=== PATIENT | male | born 1950 | race Caucasian/White ===

== ENCOUNTER 2017-10-29 17:26 | Inpatient (IN) | payer MEDICARE, OTHER, SELFPAY ==
[2017-10-29] VITALS (16 sets, daily range): BP systolic 77–134; BP diastolic 48–104; PULSE 12–88; RESP 16–21; TEMP 36.2–36.5; O2SAT 93–98; BMI 27.1; BMI 29.7
--- NOTE | 2017-10-29 17:32 | RAD_ITS ---
STUDY: X-RAY CHEST REASON FOR EXAM: Male, 66 years old. Chest pain TECHNIQUE: Single AP portable view of the chest. COMPARISON: None. FINDINGS: The lungs are clear and expanded. There is no demonstrated pleural abnormality. Normal size heart. Normal mediastinum and schuyler. Normal visualized pulmonary arteries. Normal visualized aortic arch and descending thoracic aorta. Normal visualized thoracic spine. Normal visualized ribs, clavicles, and shoulders. There is no demonstrated abnormality of the visualized soft tissue structures of the upper abdomen. RAD/Chest 1 View (Portable) IMPRESSION: No acute cardiopulmonary disease. Electronically Signed: Vazquez Houston DO at 17:55 EDT , Service support ,
--- NOTE | 2017-10-29 17:32 | EKG12_ITS ---
Test Reason : REPEAT Blood Pressure : / mmHG Vent. Rate : 064 BPM Atrial Rate : 064 BPM P-R Int : 186 ms QRS Dur : 118 ms QT Int : 430 ms P-R-T Axes : 057 037 081 degrees QTc Int : 443 ms Sinus rhythm with frequent Premature ventricular complexes ST elevation consider inferior injury or acute infarct ACUTE NE / STEMI Consider right ventricular involvement in acute inferior infarct Abnormal ECG Confirmed by TIBURCIO WILSON, RADHA ([id number]), visual effects editor GAY JEREZ ([id number]) on 10/31/2017 3:31:01 PM Referred By: Shayne Bolivar Confirmed By:RADHA DEY MD
[2017-10-29 17:41] LABS: Absolute Neutrophil Count 7.2 X10^3/uL (2.0-7.7); Basophil# 0.04 X10^3/uL; Basophil% 0.4 % (0-1); Eosinophil# 0.56 X10^3/uL; Eosinophils% 4.9 % (0-5); Hematocrit 49.9 % (40-54); Hemoglobin 17.6 g/dl (13.0-16.5); Lymphocyte % 24.7 % (19-41); Mean Corp Hgb Conc 35.3 g/gl (32-36); Mean Corpuscular Hgb 34.2 pg (27.0-32.0); Mean Corpuscular Volume 97.1 fL (80-94); Mean Platelet Vol. 9.8 fl (6.2-12.0); Monocyte# 0.75 X10^3/uL; Monocyte% 6.6 % (0-10); Neutrophil # 7.15 X10^3/uL (2.7-7.7); Neutrophil % 63.1 % (47-70); Platelet Count 277 K/mm3 (150-450); RBC Distribution Width CV 13.3 % (11.6-14.6); RBC Distribution Width SD 47.8 fl (35.1-43.9); Red Blood Count 5.14 M/mm3 (4.6-6.2); White Blood Count 11.3 K/mm3 (4.4-11.0)
[2017-10-29 17:42] LABS: POSITIVE COUNT NO; POSITIVE DIFFERENTIAL NO; POSITIVE MORPHOLOGY NO
[2017-10-29] MEDS: Aspirin 81 MG TAB.CHEW 324 MG PO (17:45)
[2017-10-29] MEDS: 0.9% Normal Saline 1,000 ML 150 ML IV (17:45)
[2017-10-29 18:02] LABS: Anion Gap 5 (5-15); BUN 22 mg/dL (7-18); BUN/Creat Ratio 17.6 RATIO (10-20); Calcium,Total 9.6 mg/dL (8.5-10.1); Chloride 103 mmol/L (98-107); Creatinine, Serum 1.25 mg/dL (0.70-1.30); EST Glomerular Filtration Rate 61 mL/min (>60); Est Glom Filt Rate - Afr Amer 74 mL/min (>60); Estimated Creatinine Clearance 69.44 ml/min; Glucose 119 mg/dL (74-106); Potassium 3.8 mmol/L (3.5-5.1); Sodium Level 140 mmol/L (136-145)
--- NOTE | 2017-10-29 18:10 | ED.VISSUMM ---
- ER Visit Summary Date of Service: 10/29/17 Chief Complaint: Chest pain History of Present Illness: The patient is a [address] Mcwilliams. He reports he has chest pain began approximately 1 hour ago. This began while he was startled from sleep. Is a continuous tightness. 6 out of 10 at worst and 5 out of 10 currently. Is worsened by laying flat. It is unchanged by exertion or movement. Is relieved by nothing. Has been accompanied by nausea, diaphoresis, and shortness of breath. States pain does radiate up into his jaw and into both arms. Physical Examination: Vitals: Stable. Afebrile. General: Well-nourished and well-developed. Head: Normocephalic atraumatic. Neck: Supple, no lymphadenopathy. No JVD. Nontender. Cardiovascular: Regular rate and rhythm. No murmurs. Respiratory: No respiratory distress. Clear to auscultation bilaterally. Abdominal: Soft, nontender, nondistended, normal bowel sounds. No guarding, rebound, or peritoneal signs. Back: Nontender. Extremities: Nontender, no edema. Skin: Normal color, no rash. Neurologic: Alert and oriented ?3. Cranial nerves II through XII are intact. Normal strength and sensation. Psych: Normal affect. Test Results: Initial EKG is sinus 87 with PVCs and nonspecific ST changes. Repeat EKG shows inferior ST elevation. Initial troponin is negative. Chem-7 is more for BUN 22 and glucose 119. CBC is marked for white count 11.3 and hemoglobin of 17.6. Chest x-ray is normal. Emergency Department Course and Treatment: Patient's initial EKG was negative. He was given aspirin p.o. and nitro. He complained of increased pain and repeat EKG was obtained which shows ST elevation in the inferior leads. Patient was then given Brilinta p.o. and heparin IV. Treatment Plan: Patient was discussed with Dr. Carol Shen and is being taken to the Microbiology Professor at this time. Disposition: Admitted in serious condition. Impression: 1. ST elevation [place], inferior. 2. Critical care time 30 minutes. This note was generated with [employer] software. It may contain incorrect words, spelling, and punctuation that were not noted in review of the chart prior to signing ED Disposition - Plan for ED Patient: Chief Complaint: Chest Pain Referrals: Jarad Mcwilliams Chi, MD [Primary Care Provider] -
--- NOTE | 2017-10-29 18:17 | ED.DCSUM_ITS ---
- ER Visit Summary Date of Service: 10/29/17 Chief Complaint: Chest pain History of Present Illness: The patient is a [address] Mcwilliams. He reports he has chest pain began approximately 1 hour ago. This began while he was startled from sleep. Is a continuous tightness. 6 out of 10 at worst and 5 out of 10 currently. Is worsened by laying flat. It is unchanged by exertion or movement. Is relieved by nothing. Has been accompanied by nausea, diaphoresis, and shortness of breath. States pain does radiate up into his jaw and into both arms. Physical Examination: Vitals: Stable. Afebrile. General: Well-nourished and well-developed. Head: Normocephalic atraumatic. Neck: Supple, no lymphadenopathy. No JVD. Nontender. Cardiovascular: Regular rate and rhythm. No murmurs. Respiratory: No respiratory distress. Clear to auscultation bilaterally. Abdominal: Soft, nontender, nondistended, normal bowel sounds. No guarding, rebound, or peritoneal signs. Back: Nontender. Extremities: Nontender, no edema. Skin: Normal color, no rash. Neurologic: Alert and oriented ?3. Cranial nerves II through XII are intact. Normal strength and sensation. Psych: Normal affect. Test Results: Initial EKG is sinus 87 with PVCs and nonspecific ST changes. Repeat EKG shows inferior ST elevation. Initial troponin is negative. Chem-7 is more for BUN 22 and glucose 119. CBC is marked for white count 11.3 and hemoglobin of 17.6. Chest x-ray is normal. Emergency Department Course and Treatment: Patient's initial EKG was negative. He was given aspirin p.o. and nitro. He complained of increased pain and repeat EKG was obtained which shows ST elevation in the inferior leads. Patient was then given Brilinta p.o. and heparin IV. Treatment Plan: Patient was discussed with Dr. Carol Shen and is being taken to the Terrazzo Polisher Helper at this time. Disposition: Admitted in serious condition. Impression: 1. ST elevation [place], inferior. 2. Critical care time 30 minutes. This note was generated with [employer] software. It may contain incorrect words, spelling, and punctuation that were not noted in review of the chart prior to signing ED Disposition - Plan for ED Patient: Chief Complaint: Chest Pain Referrals: Jarad Mcwilliams Chi, MD [Primary Care Provider] -
[2017-10-29] MEDS: Heparin Injection 5,000 UNITS/ML Syringe 4000 UNITS IV (18:20)
[2017-10-29] MEDS: TICAGRELOR 90 MG TABLET 180 MG PO (18:20)
[2017-10-29] MEDS: Morphine 2 MG/ML Syringe IV (18:24)
[2017-10-29] MEDS: Ondansetron 4 MG/2 ML Vial IV (18:24)
--- NOTE | 2017-10-29 18:29 | PCM.HP.STD ---
Problem List (1) HTN (hypertension) Status: Chronic Qualifiers: Hypertension type: essential hypertension Qualified Code(s): I10 - Essential (primary) hypertension (2) Tobacco dependence due to cigarettes Status: Chronic (3) STEMI (ST elevation myocardial infarction) Status: Acute (4) Hypotension Status: Acute Comment: following NTG and then again after 2 mg MS (5) Dehydration Status: Acute (6) Stenosis of left subclavian artery Status: Chronic (7) [place] (hard of hearing) Status: Chronic History of Present Illness Date of Admission: 10/29/17 Chief Complaint: chest pain The patient is a 66 year old M with a PMH of HTN and tobacco dependence and Left subclavian stenosis who presented to the ED at [facility] on 10/29/17 c/o substernal CP that started 3 hours prior to coming to the ER and was continuous. It was associated with radiation into both arms, SOB, nausea and diaphoresis. Initial EKG did not show ST elevation but the second EKG showed STEMI in the inferior leads with frequent PVC's. He was given NTG in the ER and the BP dropped. Significant lab included a hemoglobin of 17.6. BUN was 22 with a creatinine of 1.25. He takes metoprolol 50 mg p.o. twice daily and Zesteretic for BP control. Troponin was less than 0.02 and a random glucose was 119. He was given a loading dose of Brilinta and 324 mg of ASA. The cath team was summoned and the pt was taken to the cathodic protection technician by Dr. Bolivar. When the BP dropped a 500 cc bolus of NS was ordered. He denied any personal or FH of CAD. His is currently an inpatient at [facility] being evaluated for NPH and he has been under a lot of stress recently. He received IV MS 2 mg and Zofran 4 mg IV in rapid succession in the ED and then developed redness of the L arm distal to the antecubital fossa and pruritus. He has had MS many years ago with no adverse reaction......he may be allergic to Zofran. Past Medical History Past Medical History (Chronic Problems): Chronic Problems HTN (hypertension) (Chronic) Tobacco dependence due to cigarettes (Chronic) Stenosis of left subclavian artery (Chronic) [place] (hard of hearing) (Chronic) Allergies No Known Allergies Allergy (Verified 10/29/17 17:30) Home Medications: Ambulatory Orders Medication Instructions Recorded Lisinopril/Hydrochlorothiazide 20 mg PO BID 10/29/17 [Zestoretic 20/12.5 Tablet] Metoprolol Tartrate [Lopressor 50 mg PO BID 10/29/17 (beta svitlana)] Surgical History: herniorrhaphy - Left inguinal, - - elbow surgery Psychiatric History: No pertinent psych hx Lives: Spouse/ Significant Other, - - He is retired - [employer] Smoking Status: Current every day smoker Tobacco Use: Cigarettes Alcohol: None - has not had a drink in 15 years Drugs: None - *Family History Maternal History Items: No pertinent history, - - no hx of CAD Paternal History Items: No pertinent history, - - no hx of CAD Review of Systems Constitutional: Denies: Chills, Fever, Weight Change Eyes: Denies: Blurred vision, Redness HEENT: Reports: Difficulty Hearing. Denies: Head Aches, Sinus Congestion, Sinus Drainage Cardiovascular: Reports: Chest Pain. Denies: Edema, Light Headedness, Palpitations, Syncope Respiratory: Reports: Shortness of Breath, Shortness of breath at rest. Denies: Cough, Sputum production, Wheezing Gastrointestinal: Reports: Nausea. Denies: Abdominal Pain, Diarrhea, Vomiting Genitourinary: Denies: Dysuria Musculoskeletal: Reports: Arm Pain - BL arm pain from the shoulders to the elbows Skin: Denies: Jaundice, Pruritis - pruritius in the Left arm after IV MS and zofran......has had morphine in the past with no adverse reaction. Neurological: Denies: Change in Speech, Slurred speech, Confusion, Focal weakness, Numbness, Tingling Psychiatric: Denies: Anxiety, Depression, Homicidal Ideations, Suicidal Ideations Endocrine: Denies: Change in Body Habitus Hematologic/ Lymphatic: Denies: Hx of blood clot VTE Information - Inpt Only VTE Present on Admission: No VTE Mechan Device Prophylaxis: SCD's, Knee High REBECA Hose VTE Pharm Prophylaxis ordered?: Yes Patient Problems: Active and Suspected Problems STEMI (ST elevation myocardial infarction) (Acute) Hypotension (Acute) following NTG and then again after 2 mg MS Dehydration (Acute) - Physical Exam General: Alert, Oriented x3, Cooperative, - - diaphoretic and appears to be having severe chest pain HEENT: Atraumatic, PERRLA, EOMI Oral: Dry Mucosa Neck: Supple, No JVD, No Nodes, No Nuchal Rigidity, Trachea Midline Lungs: Clear to auscultation Cardiovascular: No murmurs, - - SR with frequent PVC's and ST elevation on telemetry and STEMI on EKG in the IW. Heart sounds are distant Abdomen: Bowel Sounds Present, Soft, Non Tender, Non-Distended Extremities: No clubbing, No cyanosis, No edema, No Calf Tenderness, Peripheral Pulses Normal Skin: - - redness and pruritus of the Left arm after receiving sequential Zofran and MS Musculoskeletal: No Muscle Wasting Neurological: Cranial nerves II-XII grossly intact, Neuro grossly intact Psych/Mental Status: Anxious Vital Signs Temp Pulse Resp BP Pulse Ox 97.7 F L 12 L 19 H 134/104 H 98 10/29/17 17:26 10/29/17 18:19 10/29/17 18:16 10/29/17 18:19 10/29/17 18:16 Oxygen Flow Rate (L/min) 2 Oxygen Delivery Method Nasal Cannula Weight: 242 lb 8.136 oz Body Mass Index (BMI) 27.1 Laboratory Tests Past 24 Hrs 10/29/17 10/29/17 17:29 17:29 WBC 11.3 H RBC 5.14 Hgb 17.6 H Hct 49.9 MCV 97.1 H MCH 34.2 H MCHC 35.3 RDW 13.3 RDW Differential 47.8 H Plt Count 277 MPV 9.8 Immature Gran % (Auto) 0.300 Neut % (Auto) 63.1 Lymph % (Auto) 24.7 [place] % (Auto) 6.6 Eos % (Auto) 4.9 Baso % (Auto) 0.4 Absolute Neuts (auto) 7.2 Absolute Lymphs (auto) 2.80 Total Counted Not Reportable Sodium 140 Potassium 3.8 Chloride 103 Carbon Dioxide 32.0 Anion Gap 5 BUN 22 H Creatinine 1.25 Estim Creat Clear Calc 69.44 Est GFR (MDRD) Af Amer 74 Est GFR (MDRD) Non-Af 61 BUN/Creatinine Ratio 17.6 Glucose 119 H Calcium 9.6 Troponin I < 0.02 Assessment/Plan Active and Suspected Problems STEMI (ST elevation myocardial infarction) (Acute) Hypotension (Acute) following NTG and then again after 2 mg MS Dehydration (Acute) Impressions 1. Inferior wall STEMI 2. HTN 3. tobacco dependence 4. Dehydration 5. Hypotension after NTG due to dehydration in a pt with Acute IWMI - resolved with fluids. 6. Presbycusis 7. History of left subclavian stenosis He had 2 stents to the RCA. A third stent was attempted in the proximal RCA but the artery was heavily calcified and the stent could not be deployed. Post procedure he was alert and talking and had no CP. He was transferred to the ICU and Dr. Bolivar put in orders. I was in communication with his son Jaime who lives in the [facility] and kept him updated during the procedure and at the conclusion. The patient's is currently an inpatient at [facility] for NPH. Code Visit Inpatient E&M: 64677 Init Hosp L3
--- NOTE | 2017-10-29 18:40 | HP.PCM_ITS ---
Problem List (1) HTN (hypertension) Status: Chronic Qualifiers: Hypertension type: essential hypertension Qualified Code(s): I10 - Essential (primary) hypertension (2) Tobacco dependence due to cigarettes Status: Chronic (3) STEMI (ST elevation myocardial infarction) Status: Acute (4) Hypotension Status: Acute Comment: following NTG and then again after 2 mg MS (5) Dehydration Status: Acute (6) Stenosis of left subclavian artery Status: Chronic (7) [place] (hard of hearing) Status: Chronic History of Present Illness Date of Admission: 10/29/17 Chief Complaint: chest pain The patient is a 66 year old M with a PMH of HTN and tobacco dependence and Left subclavian stenosis who presented to the ED at [facility] on 10/29/17 c/o substernal CP that started 3 hours prior to coming to the ER and was continuous. It was associated with radiation into both arms, SOB, nausea and diaphoresis. Initial EKG did not show ST elevation but the second EKG showed STEMI in the inferior leads with frequent PVC's. He was given NTG in the ER and the BP dropped. Significant lab included a hemoglobin of 17.6. BUN was 22 with a creatinine of 1.25. He takes metoprolol 50 mg p.o. twice daily and Zesteretic for BP control. Troponin was less than 0.02 and a random glucose was 119. He was given a loading dose of Brilinta and 324 mg of ASA. The cath team was summoned and the pt was taken to the laborer operator by Dr. Bolivar. When the BP dropped a 500 cc bolus of NS was ordered. He denied any personal or FH of CAD. His is currently an inpatient at [facility] being evaluated for NPH and he has been under a lot of stress recently. He received IV MS 2 mg and Zofran 4 mg IV in rapid succession in the ED and then developed redness of the L arm distal to the antecubital fossa and pruritus. He has had MS many years ago with no adverse reaction......he may be allergic to Zofran. Past Medical History Past Medical History (Chronic Problems): Chronic Problems HTN (hypertension) (Chronic) Tobacco dependence due to cigarettes (Chronic) Stenosis of left subclavian artery (Chronic) [place] (hard of hearing) (Chronic) Allergies No Known Allergies Allergy (Verified 10/29/17 17:30) Home Medications: Ambulatory Orders Medication Instructions Recorded Lisinopril/Hydrochlorothiazide 20 mg PO BID 10/29/17 [Zestoretic 20/12.5 Tablet] Metoprolol Tartrate [Lopressor 50 mg PO BID 10/29/17 (beta svitlana)] Surgical History: herniorrhaphy - Left inguinal, - - elbow surgery Psychiatric History: No pertinent psych hx Lives: Spouse/ Significant Other, - - He is retired - [employer] Smoking Status: Current every day smoker Tobacco Use: Cigarettes Alcohol: None - has not had a drink in 15 years Drugs: None - *Family History Maternal History Items: No pertinent history, - - no hx of CAD Paternal History Items: No pertinent history, - - no hx of CAD Review of Systems Constitutional: Denies: Chills, Fever, Weight Change Eyes: Denies: Blurred vision, Redness HEENT: Reports: Difficulty Hearing. Denies: Head Aches, Sinus Congestion, Sinus Drainage Cardiovascular: Reports: Chest Pain. Denies: Edema, Light Headedness, Palpitations, Syncope Respiratory: Reports: Shortness of Breath, Shortness of breath at rest. Denies : Cough, Sputum production, Wheezing Gastrointestinal: Reports: Nausea. Denies: Abdominal Pain, Diarrhea, Vomiting Genitourinary: Denies: Dysuria Musculoskeletal: Reports: Arm Pain - BL arm pain from the shoulders to the elbows Skin: Denies: Jaundice, Pruritis - pruritius in the Left arm after IV MS and zofran......has had morphine in the past with no adverse reaction. Neurological: Denies: Change in Speech, Slurred speech, Confusion, Focal weakness, Numbness, Tingling Psychiatric: Denies: Anxiety, Depression, Homicidal Ideations, Suicidal Ideations Endocrine: Denies: Change in Body Habitus Hematologic/ Lymphatic: Denies: Hx of blood clot VTE Information - Inpt Only VTE Present on Admission: No VTE Mechan Device Prophylaxis: SCD's, Knee High REBECA Hose VTE Pharm Prophylaxis ordered?: Yes Patient Problems: Active and Suspected Problems STEMI (ST elevation myocardial infarction) (Acute) Hypotension (Acute) following NTG and then again after 2 mg MS Dehydration (Acute) - Physical Exam General: Alert, Oriented x3, Cooperative, - - diaphoretic and appears to be having severe chest pain HEENT: Atraumatic, PERRLA, EOMI Oral: Dry Mucosa Neck: Supple, No JVD, No Nodes, No Nuchal Rigidity, Trachea Midline Lungs: Clear to auscultation Cardiovascular: No murmurs, - - SR with frequent PVC's and ST elevation on telemetry and STEMI on EKG in the IW. Heart sounds are distant Abdomen: Bowel Sounds Present, Soft, Non Tender, Non-Distended Extremities: No clubbing, No cyanosis, No edema, No Calf Tenderness, Peripheral Pulses Normal Skin: - - redness and pruritus of the Left arm after receiving sequential Zofran and MS Musculoskeletal: No Muscle Wasting Neurological: Cranial nerves II-XII grossly intact, Neuro grossly intact Psych/Mental Status: Anxious Vital Signs Temp Pulse Resp BP Pulse Ox 97.7 F L 12 L 19 H 134/104 H 98 10/29/17 17:26 10/29/17 18:19 10/29/17 18:16 10/29/17 18:19 10/29/17 18:16 Oxygen Flow Rate (L/min) 2 Oxygen Delivery Method Nasal Cannula Weight: 242 lb 8.136 oz Body Mass Index (BMI) 27.1 Laboratory Tests Past 24 Hrs 10/29/17 10/29/17 17:29 17:29 WBC 11.3 H RBC 5.14 Hgb 17.6 H Hct 49.9 MCV 97.1 H MCH 34.2 H MCHC 35.3 RDW 13.3 RDW Differential 47.8 H Plt Count 277 MPV 9.8 Immature Gran % (Auto) 0.300 Neut % (Auto) 63.1 Lymph % (Auto) 24.7 [place] % (Auto) 6.6 Eos % (Auto) 4.9 Baso % (Auto) 0.4 Absolute Neuts (auto) 7.2 Absolute Lymphs (auto) 2.80 Total Counted Not Reportable Sodium 140 Potassium 3.8 Chloride 103 Carbon Dioxide 32.0 Anion Gap 5 BUN 22 H Creatinine 1.25 Estim Creat Clear Calc 69.44 Est GFR (MDRD) Af Amer 74 Est GFR (MDRD) Non-Af 61 BUN/Creatinine Ratio 17.6 Glucose 119 H Calcium 9.6 Troponin I < 0.02 Assessment/Plan Active and Suspected Problems STEMI (ST elevation myocardial infarction) (Acute) Hypotension (Acute) following NTG and then again after 2 mg MS Dehydration (Acute) Impressions 1. Inferior wall STEMI 2. HTN 3. tobacco dependence 4. Dehydration 5. Hypotension after NTG due to dehydration in a pt with Acute IWMI - resolved with fluids. 6. Presbycusis 7. History of left subclavian stenosis He had 2 stents to the RCA. A third stent was attempted in the proximal RCA but the artery was heavily calcified and the stent could not be deployed. Post procedure he was alert and talking and had no CP. He was transferred to the ICU and Dr. Bolivar put in orders. I was in communication with his son Jaime who lives in the [facility] and kept him updated during the procedure and at the conclusion. The patient's is currently an inpatient at [facility] for NPH. Code Visit Inpatient E&M: 65620 Init Hosp L3
[2017-10-29 19:12] LABS: AST(SGOT) 33 U/L (15-37); Alanine Aminotransfer ALT/SGPT 40 U/L (16-61); Albumin, Serum 4.2 g/dL (3.2-5.0); Alkaline Phosphatase 82 U/L (45-117); Bilirubin, Direct 0.11 mg/dL (0.00-0.30); Globulin 3.6 g/dL (2.2-4.2); Protein, Total 7.8 g/dL (6.4-8.2)
[2017-10-29 19:16] LABS: International Normalized Ratio 0.9; Prothrombin Time (Protime)PT. 12.3 SECONDS (11.7-14.9)
[2017-10-29 19:33] LABS: Hemoglobin A1c 6.8 % (4.2-6.3)
--- NOTE | 2017-10-29 20:41 | PCM.CONS.C ---
Problem List (1) STEMI (ST elevation myocardial infarction) Status: Acute Reason for Consult Date of Consultation: 10/29/17 History of Present Illness: The patient is a 66 year old M with past medical history significant for hypertension. He presented to the emergency room with complaints of anterior chest discomfort radiating to both shoulders and arms. Started about 2 hours prior to presentation. Initial EKG in the emergency room was unremarkable. However as his pain worsened, another EKG was performed. It showed acute inferior myocardial infarction. Subsequently a STEMI alert was called. Positive shortness of breath associated with chest discomfort. Positive diaphoresis. Patient denies any previous history of angina pectoris. Denies any history of coronary artery disease. [] Past Medical History Allergies/Adverse Reactions: Allergies No Known Allergies Allergy (Verified 10/29/17 17:30) Home Medications: Ambulatory Orders Medication Instructions Recorded Lisinopril/Hydrochlorothiazide 20 mg PO BID 10/29/17 [Zestoretic 20/12.5 Tablet] Metoprolol Tartrate [Lopressor 50 mg PO BID 10/29/17 (beta svitlana)] Past Medical History (Chronic Problems): Chronic Problems HTN (hypertension) (Chronic) Tobacco dependence due to cigarettes (Chronic) Stenosis of left subclavian artery (Chronic) [place] (hard of hearing) (Chronic) Surgical History: herniorrhaphy - Left inguinal, - - elbow surgery Psychiatric History: No pertinent psych hx - *Family History Maternal History Items: No pertinent history, - - no hx of CAD Paternal History Items: No pertinent history, - - no hx of CAD Lives: Spouse/ Significant Other, - - He is retired - [employer] Smoking Status: Current every day smoker Tobacco Use: Cigarettes Alcohol: None - has not had a drink in 15 years Drugs: None Review of Systems - Review of Systems General: Denies: Fever, Chills HEENT: Denies: Head Aches Cardiovascular: Reports: Chest Discomfort at Rest, Chest Pressure, Chest Tightness. Denies: Orthopnea, PND Respiratory: Reports: Shortness of Breath Gastrointestinal: Denies: Abdominal Discomfort, Jaundice, Nausea, Emesis, Hematemesis, Melena Muscoloskeletal: Denies: Myalgias Neurological: Denies: History of TIA, History of CVA Psychiatric: Denies: Anxiety Endocrine: Denies: Heat Intolerance, Cold Intolerance Hematologic/ Lymphatic: Denies: Anemia, Easy Brusing, Easy Bleeding Subjectve: Moderately distressed. Objective: Vital Signs Temp Pulse Resp BP Pulse Ox 97.7 F L 12 L 19 H 134/104 H 98 10/29/17 17:26 10/29/17 18:19 10/29/17 18:16 10/29/17 18:19 10/29/17 18:16 General: Awake, Alert, Oriented x 3, Ill Appearing, In Acute Distress HEENT: Atraumatic, Normocephalic Oral: Moist Mucosa Neck: No JVD Lungs: Clear to auscultation Cardiovascular: Regular Rhythm, Normal S1, Normal S2 Vascular: No Carotid Bruits Abdomen: Bowel Sounds Present, Soft Extremities: No edema Neurological: No Focal Motor or Sensory Deficit Psych/Mental Status: Appropriate Rhythm: EKG: ECHO: Stress Test: Cardiac Cath: PCI: CT Surgery: Holter monitor: EPS: PPM: CXR: Chest CT Scan: Assessment/Plan . Acute inferior ST elevation myocardial infarction. Patient was advised emergent coronary angiography with possible revascularization. After obtaining informed consent, patient was brought to the cardiac catheterization lab. Angiography revealed total occlusion of the distal right coronary artery. Heavily calcified vessel. About 70% lesion was also noted in the mid RCA. The artery was noted to be a tortuous vessel. Balloon angioplasty and stent placement was performed to the distal RCA using a 2.5 x 12 mm resolute drug-eluting stent. This was postdilated with a 3.0 mm balloon under high pressures. The midright coronary artery lesion was treated using a 3.0 x 15 mm resolute drug-eluting stent. This was postdilated using a 3.5 mm balloon. Distal part of the stent was postdilated using a 4.0 mm balloon. 2. Continue aspirin lifelong. Brilinta treatment for at least one year. Beta blockers. STEVE inhibitor. Statins 3. Patient has about 70% lesion in the mid left anterior descending artery. Follow-up as outpatient. Possible staged PCI versus medical management 4. Overall left ventricular systolic function is normal 5. Nicotine dependence. Counseled to quit 6. Hypertension
--- NOTE | 2017-10-29 20:45 | EKG12_ITS ---
Test Reason : CHEST PAIN Blood Pressure : / mmHG Vent. Rate : 087 BPM Atrial Rate : 087 BPM P-R Int : 174 ms QRS Dur : 100 ms QT Int : 364 ms P-R-T Axes : 071 016 068 degrees QTc Int : 438 ms Sinus rhythm with occasional Premature ventricular complexes Septal infarct , age undetermined Abnormal ECG Confirmed by TIBURCIO WILSON, RADHA ([id number]), sound editor GAY JEREZ ([id number]) on 10/31/2017 3:32:19 PM Referred By: Shayne Bolivar Confirmed By:RADHA DEY MD
--- NOTE | 2017-10-29 20:50 | NURSING ---
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 Pt appears without S/S of distress pt is laughing and joking. Rt Wrist cath site observed and appears without S/S of complications, site is soft to palpate, no bleeding, and TR band intact. Peripheral pulses present. Pt denies any chest or arm pain/discomfort.
[2017-10-29 21:00] LABS: ACT Activated Clotting Time 169 sec (74-137)
[2017-10-29 21:00] LABS: ACT Activated Clotting Time 357 sec (74-137)
[2017-10-29 21:08] LABS: Magnesium 1.8 mg/dL (1.6-2.6)
[2017-10-29] MEDS: 0.9% Normal Saline 1,000 ML 100 ML IV (21:10)
[2017-10-29] MEDS: 0.9% Normal Saline 1,000 ML 999 ML IV (22:28)
[2017-10-29 22:30] LABS: M R Staph aureus DNA By PCR Negative (Negative); Probe Check PASS; Specimen Processing Control PASS
[2017-10-29] MEDS: Zolpidem Tartrate 5 MG Tablet PO (23:58)
[2017-10-30] VITALS (34 sets, daily range): BP systolic 68–112; BP diastolic 45–87; PULSE 63–98; RESP 13–28; TEMP 36.6–36.9; O2SAT 93–100
[2017-10-30] MEDS: 0.9% Normal Saline 1,000 ML 999 ML IV (02:50)
[2017-10-30 04:39] LABS: Hematocrit 40.5 % (40-54); Hemoglobin 13.9 g/dl (13.0-16.5); Mean Corp Hgb Conc 34.3 g/gl (32-36); Mean Corpuscular Hgb 33.3 pg (27.0-32.0); Mean Corpuscular Volume 96.9 fL (80-94); Mean Platelet Vol. 9.7 fl (6.2-12.0); Platelet Count 230 K/mm3 (150-450); RBC Distribution Width CV 13.5 % (11.6-14.6); RBC Distribution Width SD 47.4 fl (35.1-43.9); Red Blood Count 4.18 M/mm3 (4.6-6.2); White Blood Count 10.2 K/mm3 (4.4-11.0)
[2017-10-30 05:16] LABS: ALB/GLOB Ratio 1.2 RATIO (0.9-2.4); AST(SGOT) 94 U/L (15-37); Alanine Aminotransfer ALT/SGPT 35 U/L (16-61); Albumin, Serum 3.1 g/dL (3.2-5.0); Alkaline Phosphatase 56 U/L (45-117); Anion Gap 6 (5-15); BUN 15 mg/dL (7-18); BUN/Creat Ratio 16.2 RATIO (10-20); Calcium,Total 7.8 mg/dL (8.5-10.1); Chloride 109 mmol/L (98-107); Cholesterol 135 mg/dL (200); Creatinine, Serum 0.93 mg/dL (0.70-1.30); EST Glomerular Filtration Rate 86 mL/min (>60); Est Glom Filt Rate - Afr Amer 104 mL/min (>60); Estimated Creatinine Clearance 93.33 ml/min; Globulin 2.6 g/dL (2.2-4.2); Glucose 104 mg/dL (74-106); High Density Lipoprotein 26 mg/dL; Potassium 3.5 mmol/L (3.5-5.1); Protein, Total 5.7 g/dL (6.4-8.2); Sodium Level 143 mmol/L (136-145); Triglycerides 181 mg/dL; Very Low Density Lipoprotein 36 mg/dL (5-40)
[2017-10-30 05:17] LABS: Scan Indicated on CBC? Y/N NO
--- NOTE | 2017-10-30 05:55 | EKG12_ITS ---
Test Reason : AM Blood Pressure : / mmHG Vent. Rate : 066 BPM Atrial Rate : 066 BPM P-R Int : 160 ms QRS Dur : 110 ms QT Int : 438 ms P-R-T Axes : 072 009 042 degrees QTc Int : 459 ms Sinus rhythm with occasional Premature ventricular complexes Otherwise normal ECG Confirmed by ANDREA WILSON, PAOLA ([id number]), features editor GAY JEREZ ([id number]) on 11/02/2017 1:51:52 PM Referred By: Shayne Bolivar Confirmed By:PAOLA MENDEZ MD
--- NOTE | 2017-10-30 06:44 | PCM.PN.HOSP ---
Patient Problems: Active and Suspected Problems STEMI (ST elevation myocardial infarction) (Acute) Hypotension (Acute) following NTG and then again after 2 mg MS Dehydration (Acute) Subjective: Patient with no acute events overnight per self and per nursing report. He denies any further chest discomfort or dyspnea sensation status post PCI. Patient did have mild hypotension overnight and fluid bolus was given however this has since improved and he is maintained on beta-marianne and low-dose STEVE inhibitor per cardiology recommendation. Wrist well-appearing status post intervention with no bleeding overnight. She notes eagerness for discharge to home secondary to his being at [facility] with ongoing evaluation and workup. Discussed Tobacco cessation at length. Patient denies fevers, chills, nausea, emesis, abdominal pain, current or worsened chest pain or dyspnea. Objective: Physical Examination: General: awake, alert, oriented x 3 and cooperative, seated upright in the ICU bed in no apparent distress. Skin: normal color, turgor, no icterus, cyanosis, R wrist dressing in place, no bleeding. HEENT: AT/NC, EOMI, PERRLA, mildly dry MM, no carotid bruits or JVD noted. Lungs: Diminished BS BL, > bases, moderate effort, mild decrease BL bases, no rales, ronchi or wheezing. Heart: Regular rate and rhythm; no gallop, rub audible. Abdomen: soft, overweight, NTTP, ND, normal BS, no HSM. Extremities: no cyanosis, clubbing, or edema, see skin, L wrist with mild peripheral pulse delay, chronic. Neurological: patient awake, alert, oriented x 3; cognitive function intact; pupils equally reactive to light and accomodation; cranial nerves II-XII grossly normal, moving all 4 extremities, no focal deficits, strength mildly globally decreased secondary to recent acute presentation and intervention.l Psychiatric: affect appears normal, no acute evidence of depressive or anxiety feelings. Vitals/I&O's: Vital Signs Temp Pulse Resp BP Pulse Ox 97.9 F 68 16 101/71 93 10/30/17 04:00 10/30/17 06:00 10/30/17 06:00 10/30/17 06:00 10/30/17 06:00 Oxygen Delivery Method Room Air Weight: 244 lb 0.827 oz Body Mass Index (BMI) 29.7 Intake and Output for Last 24 Hours 0410/29/17 10/30/17 23:59 23:59 23:59 Intake Total 1573 / 1573 1480 / 1480 Output Total 150 / 150 775 / 775 Balance 1423 / 1423 705 / 705 Laboratory Results 10/29/17 18:39: Activated Clotting Time 169 H 10/29/17 20:24: Activated Clotting Time 357 H 10/29/17 20:55: MRSA (PCR) Negative 10/30/17 04:25: WBC 10.2, RBC 4.18 L, Hgb 13.9, Hct 40.5, MCV 96.9 H, MCH 33.3 H, MCHC 34.3, RDW 13.5, RDW Differential 47.4 H, Plt Count 230, MPV 9.7 10/30/17 04:25: Sodium 143, Potassium 3.5, Chloride 109 H, Carbon Dioxide 28.0, Anion Gap 6, BUN 15, Creatinine 0.93, Estim Creat Clear Calc 93.33, Est GFR (MDRD) Af Amer 104, Est GFR (MDRD) Non-Af 86, BUN/Creatinine Ratio 16.2, Glucose 104, Calcium 7.8 L, Total Bilirubin 0.50, AST 94 H, ALT 35, Alkaline Phosphatase 56, Total Protein 5.7 L, Albumin 3.1 L, Globulin 2.6, Albumin/Globulin Ratio 1.2, Triglycerides 181, Cholesterol 135, LDL Cholesterol 73, VLDL Cholesterol 36, HDL Cholesterol 26 L Current Medications Aspirin (Ecotrin) 81 mg PO DAILY@0800 [facility] Atorvastatin Calcium (Lipitor) 40 mg PO QHS [facility] Last Admin: 10/29/17 22:11 Dose: Not Given Atropine Sulfate () 0.5 mg IV UD PRN PRN Reason: HR <50 bpm Dextrose (D50w Syringe) 0 gm IV X1 PRN; Protocol PRN Reason: Hypoglycemia Glucagon () 1 mg IM .X1 PRN PRN Reason: Hypoglycemia Sodium Chloride () 250 mls @ 15 mls/hr IV .[id number] PRN PRN Reason: SALINE FLUSH Insulin Aspart (Novolog Flexpen (Bkc)) 0 units SC ACHS EDILBERTO PRN Reason: Protocol Lisinopril (Zestril) 5 mg PO DAILY [facility] Metoprolol Tartrate (Lopressor (Beta Marianne)) 25 mg PO BID [facility] Last Admin: 10/29/17 21:30 Dose: Not Given Nitroglycerin (Nitrostat) 0.4 mg SUBLINGUAL Q5M PRN PRN Reason: CARDIAC/CHEST PAIN Sodium Chloride () 500 ml IV BOLUS PRN PRN Reason: VASO-VAGAL PROTOCOL Sodium Chloride () 5 - 30 ml IV UD PRN PRN Reason: SALINE FLUSH Ticagrelor (Brilinta) 90 mg PO BID [facility] Zolpidem Tartrate (Ambien (Generic)) 5 mg PO QHS PRN PRN PRN Reason: INSOMNIA Last Admin: 10/29/17 23:58 Dose: 5 mg Medical Necessity - Tobacco Use Smoking Status: Current every day smoker Tobacco Use: Cigarettes Assessment/Plan Active and Suspected Problems STEMI (ST elevation myocardial infarction) (Acute) Hypotension (Acute) following NTG and then again after 2 mg MS Dehydration (Acute) The patient is a 66 y/o M w/ PMHx: Hypertension, Tobacco use with cigarettes, Left subclavian artery stenosis who presents to the [facility] ED on 10/29/17 with onset of substernal chest pain starting approximately 3 hours prior to ED presentation, continuous, radiation to bilateral upper extremities with dyspnea, nausea and diaphoresis with initial EKG without ST elevation but repeat with STEMI inferior leads. (1) Chest Pain w/ Acute STEMI: EKG in ED w/ second EKG demonstrating STEMI in the inferior leads with PVCs. Initial cardiac enzyme 0.02, no follow-up obtained. Mag 1.8. Placed on nitroglycerin in the ER with BP drop. And administered loading dose Brilinta and aspirin therapy in addition to normal saline bolus. Cardiology, Dr. Carol smith consulted and cardiac cath performed emergently. He had catheterization with total occlusion distal RCA, heavily calcified, 70% lesion noted in the mid RCA noted to be a tortuous vessel, balloon angioplasty and stent placement performed in the distal RCA, mid right coronary artery lesion treated using drug-eluting stent, distal part of the stent was postdilated. Post cardiac catheterization recommendations with aspirin lifelong, Brilinta treatment ?1 year, beta-marianne, STEVE inhibitor, statin. Plan to follow-up outpatient for continued evaluation of 70% lesion in the mid LAD with possible staged PCI versus medical management. ASA, NG, morphine. Will confer with Cardiology given patient eagerness for discharge to visit his at [facility]. (2) New onset Diabetes Mellitus type II: Admission glucose elevated, HgbA1c obtained 6.8%, will need to defer metformin x 48 hours given recent catheterization, following start metformin, nutrition education prior to discharge, close PCP follow-up, accu check w/ ISS. (3) Hypertension: Continue home regimen including Toprol, metoprolol, PRN hydralazine. (4) Hyperlipidemia: New onset in therapy, FLP obtained with total cholesterol 135, triglycerides 181, LDL 73, VLDL 36, HDL 26. (5) Overweight: Admission BMP 29 range, recommend diet and lifestyle changes. (6) Tobacco Abuse: Encouraged cessation, inpatient consultation per RT, defer NR given presentation. (7) Left subclavian artery stenosis: Known, chronic, mild pulses L sided peripheral delay, stable. (8) DVT Prophylaxis: SCDs, recent catheterization w/ heparin load, brillinta load, ASA load. Code Visit Inpatient E&M: 44060 Subs Hosp L3
--- NOTE | 2017-10-30 06:53 | PN_ITS ---
Patient Problems: Active and Suspected Problems STEMI (ST elevation myocardial infarction) (Acute) Hypotension (Acute) following NTG and then again after 2 mg MS Dehydration (Acute) Subjective: Patient with no acute events overnight per self and per nursing report. He denies any further chest discomfort or dyspnea sensation status post PCI. Patient did have mild hypotension overnight and fluid bolus was given however this has since improved and he is maintained on beta-marianne and low-dose STEVE inhibitor per cardiology recommendation. Wrist well-appearing status post intervention with no bleeding overnight. She notes eagerness for discharge to home secondary to his being at [facility] with ongoing evaluation and workup. Discussed Tobacco cessation at length. Patient denies fevers, chills, nausea, emesis, abdominal pain, current or worsened chest pain or dyspnea. Objective: Physical Examination: General: awake, alert, oriented x 3 and cooperative, seated upright in the ICU bed in no apparent distress. Skin: normal color, turgor, no icterus, cyanosis, R wrist dressing in place, no bleeding. HEENT: AT/NC, EOMI, PERRLA, mildly dry MM, no carotid bruits or JVD noted. Lungs: Diminished BS BL, > bases, moderate effort, mild decrease BL bases, no rales, ronchi or wheezing. Heart: Regular rate and rhythm; no gallop, rub audible. Abdomen: soft, overweight, NTTP, ND, normal BS, no HSM. Extremities: no cyanosis, clubbing, or edema, see skin, L wrist with mild peripheral pulse delay, chronic. Neurological: patient awake, alert, oriented x 3; cognitive function intact; pupils equally reactive to light and accomodation; cranial nerves II-XII grossly normal, moving all 4 extremities, no focal deficits, strength mildly globally decreased secondary to recent acute presentation and intervention.l Psychiatric: affect appears normal, no acute evidence of depressive or anxiety feelings. Vitals/I&O's: Vital Signs Temp Pulse Resp BP Pulse Ox 97.9 F 68 16 101/71 93 10/30/17 04:00 10/30/17 06:00 10/30/17 06:00 10/30/17 06:00 10/30/17 06:00 Oxygen Delivery Method Room Air Weight: 244 lb 0.827 oz Body Mass Index (BMI) 29.7 Intake and Output for Last 24 Hours 0410/29/17 10/30/17 23:59 23:59 23:59 Intake Total 1573 / 1573 1480 / 1480 Output Total 150 / 150 775 / 775 Balance 1423 / 1423 705 / 705 Laboratory Results 10/29/17 18:39: Activated Clotting Time 169 H 10/29/17 20:24: Activated Clotting Time 357 H 10/29/17 20:55: MRSA (PCR) Negative 10/30/17 04:25: WBC 10.2, RBC 4.18 L, Hgb 13.9, Hct 40.5, MCV 96.9 H, MCH 33.3 H , MCHC 34.3, RDW 13.5, RDW Differential 47.4 H, Plt Count 230, MPV 9.7 10/30/17 04:25: Sodium 143, Potassium 3.5, Chloride 109 H, Carbon Dioxide 28.0, Anion Gap 6, BUN 15, Creatinine 0.93, Estim Creat Clear Calc 93.33, Est GFR ( MDRD) Af Amer 104, Est GFR (MDRD) Non-Af 86, BUN/Creatinine Ratio 16.2, Glucose 104, Calcium 7.8 L, Total Bilirubin 0.50, AST 94 H, ALT 35, Alkaline Phosphatase 56, Total Protein 5.7 L, Albumin 3.1 L, Globulin 2.6, Albumin/ Globulin Ratio 1.2, Triglycerides 181, Cholesterol 135, LDL Cholesterol 73, VLDL Cholesterol 36, HDL Cholesterol 26 L Current Medications Aspirin (Ecotrin) 81 mg PO DAILY@0800 [facility] Atorvastatin Calcium (Lipitor) 40 mg PO QHS [facility] Last Admin: 10/29/17 22:11 Dose: Not Given Atropine Sulfate () 0.5 mg IV UD PRN PRN Reason: HR <50 bpm Dextrose (D50w Syringe) 0 gm IV X1 PRN; Protocol PRN Reason: Hypoglycemia Glucagon () 1 mg IM .X1 PRN PRN Reason: Hypoglycemia Sodium Chloride () 250 mls @ 15 mls/hr IV .[id number] PRN PRN Reason: SALINE FLUSH Insulin Aspart (Novolog Flexpen (Bkc)) 0 units SC ACHS EDILBERTO PRN Reason: Protocol Lisinopril (Zestril) 5 mg PO DAILY [facility] Metoprolol Tartrate (Lopressor (Beta Marianne)) 25 mg PO BID [facility] Last Admin: 10/29/17 21:30 Dose: Not Given Nitroglycerin (Nitrostat) 0.4 mg SUBLINGUAL Q5M PRN PRN Reason: CARDIAC/CHEST PAIN Sodium Chloride () 500 ml IV BOLUS PRN PRN Reason: VASO-VAGAL PROTOCOL Sodium Chloride () 5 - 30 ml IV UD PRN PRN Reason: SALINE FLUSH Ticagrelor (Brilinta) 90 mg PO BID [facility] Zolpidem Tartrate (Ambien (Generic)) 5 mg PO QHS PRN PRN PRN Reason: INSOMNIA Last Admin: 10/29/17 23:58 Dose: 5 mg Medical Necessity - Tobacco Use Smoking Status: Current every day smoker Tobacco Use: Cigarettes Assessment/Plan Active and Suspected Problems STEMI (ST elevation myocardial infarction) (Acute) Hypotension (Acute) following NTG and then again after 2 mg MS Dehydration (Acute) The patient is a 66 y/o M w/ PMHx: Hypertension, Tobacco use with cigarettes, Left subclavian artery stenosis who presents to the [facility] ED on 10/29/17 with onset of substernal chest pain starting approximately 3 hours prior to ED presentation, continuous, radiation to bilateral upper extremities with dyspnea , nausea and diaphoresis with initial EKG without ST elevation but repeat with STEMI inferior leads. (1) Chest Pain w/ Acute STEMI: EKG in ED w/ second EKG demonstrating STEMI in the inferior leads with PVCs. Initial cardiac enzyme 0.02, no follow-up obtained. Mag 1.8. Placed on nitroglycerin in the ER with BP drop. And administered loading dose Brilinta and aspirin therapy in addition to normal saline bolus. Cardiology, Dr. Carol smith consulted and cardiac cath performed emergently. He had catheterization with total occlusion distal RCA, heavily calcified, 70% lesion noted in the mid RCA noted to be a tortuous vessel, balloon angioplasty and stent placement performed in the distal RCA, mid right coronary artery lesion treated using drug-eluting stent, distal part of the stent was postdilated. Post cardiac catheterization recommendations with aspirin lifelong, Brilinta treatment ?1 year, beta-marianne, STEVE inhibitor, statin. Plan to follow-up outpatient for continued evaluation of 70% lesion in the mid LAD with possible staged PCI versus medical management. ASA, NG, morphine. Will confer with Cardiology given patient eagerness for discharge to visit his at [facility]. (2) New onset Diabetes Mellitus type II: Admission glucose elevated, HgbA1c obtained 6.8%, will need to defer metformin x 48 hours given recent catheterization, following start metformin, nutrition education prior to discharge, close PCP follow-up, accu check w/ ISS. (3) Hypertension: Continue home regimen including Toprol, metoprolol, PRN hydralazine. (4) Hyperlipidemia: New onset in therapy, FLP obtained with total cholesterol 135, triglycerides 181, LDL 73, VLDL 36, HDL 26. (5) Overweight: Admission BMP 29 range, recommend diet and lifestyle changes. (6) Tobacco Abuse: Encouraged cessation, inpatient consultation per RT, defer NR given presentation. (7) Left subclavian artery stenosis: Known, chronic, mild pulses L sided peripheral delay, stable. (8) DVT Prophylaxis: SCDs, recent catheterization w/ heparin load, brillinta load, ASA load. Code Visit Inpatient E&M: 24377 Subs Hosp L3
[2017-10-30 07:41] LABS: Bedside Glucose 148 mg/dL (70-110)
--- NOTE | 2017-10-30 07:53 | CL.I_ITS ---
Patient Name: RIGO DIAZ Study Date: 10/29/2017 Performing: Shayne Bolivar MD Ht: 75.98 inches 193 cm : 1950 Wt: 222.67 lbs 101 kg Age: 66 Gender: male BSA: 2.32 PROCEDURE(S) PERFORMED [id number], JAJA AND/OR PTCA, ARTERY OR GRAFT, SINGLE VESSEL [id number]/COR/LV CLINICAL PROFILE AND CO-MORBIDITIES Heart Failure: None CAD Presentations: STEMI. Symptom onset Date/Time: 10/29/2017 15:30:00 Time Estimated CONCLUSIONS 70% Mid, 100% distal RCA; tortous, heavily calcified 40% Prox, 70% Mid LAD, calcified 50% Prox OM2, 70% Mid LCX Successful PTCA/JAJA of the distal RCA using 2.5x12 mm Resolute Integrity, post-dilated using 3.0 mm N C balloon under high pressure Successful PTCA/JAJA of the Mid RCA using Resolute Integrity 3.0x15 mm, post-dilated using 3.5 mm ball oon, post-dilated in distal part using 4.0 mm balloon RECOMMENDATIONS ASA Indefinitley Brilinta for at least 12 months Consider staged PCI to LAD vs medical management as OP DESCRIPTION OF PROCEDURE The patient arrived to the procedure lab. The risks and benefits of the procedure as well as a full d escription of our services here and lack of surgical backup were fully explained to the patient and/o r their significant other prior to the catheterization. The Timeout was completed, verifying the josephine ect patient and procedure. The patient's procedural site was prepped and draped in the usual fashion. Local anesthetic was given subcutaneously to right radial region with Lidocaine 2%. Using a modified Seldinger technique, arterial access was obtained via the right radial artery, a 6Fr sheath was inse rted.. Left Coronary Artery selective angiography was performed in multiple views using a 5 Fr. 4.0 [place] catheter. Right Coronary Artery selective angiography was then performed in multiple views usin g a 5 Fr. 4.0 [place] catheter. Left Ventriculography was performed in SANCHEZ projection using a 5 Fr. Pig tail catheter jr 4 Guide catheter was inserted and engaged into the RCA. runthrough Guide wire was advanced to the RCA. emerge 2.25 x 20 Balloon catheter was advanced across lesion in the distal right PTCA balloon in flated at 12 atms for 13 secs PTCA balloon inflated at 10 atms for 12 secs PTCA balloon inflated at 1 0 atms for 14 secs Angiogram performed post balloon dilatation. emerge 3.5 x 12 Balloon catheter was advanced across lesion in the right coronary, mid. PTCA balloon inflated at 10 atms for 15 secs Angio gram performed post balloon dilatation. al .75 launcher Guide catheter was inserted and engaged into the RCA. emerge 3.5 x 12 Balloon catheter was advanced across lesion in the right coronary, mid. PTCA balloon inflated at 12 atms for 16 secs emerge 3.5 12 Balloon catheter was advanced across lesion in the right coronary, mid. PTCA balloon inflated at 12 atms for 15 secs Angiogram performed post ballo on dilatation. emerge 3.00 x 12 Balloon catheter was advanced across lesion in the right coronary, di stal. PTCA balloon inflated at 6 atms for 6 secs PTCA balloon inflated at 6 atms for 20 secs PTCA bal loon inflated at 10 atms for 12 secs PTCA balloon inflated at 12 atms for 18 secs nc emerge 3.00 x 15 Balloon catheter was advanced across lesion in the right coronary, distal. PTCA balloon inflated at 12 atms for 11 secs medtronic 2.5 x 12 resolute Drug Eluting stent was advanced across the lesion in the right coronary, distal. Angiogram performed post stent deployment. emerge 3.00 x [address] was advanced across lesion in the right coronary, distal. Angiogram performed post balloon dilata tion. medtronic resolute 3.0 x 15 Drug Eluting stent was advanced across the lesion in the right arleen nary, mid. Angiogram performed post stent deployment. nc emerge 3.50 x 15 Balloon catheter was advanc ed across lesion in the right coronary, mid. emege 3.5 x 12 Balloon catheter was advanced across lesi on in the right coronary, mid. PTCA balloon inflated at 10 atms for 29 secs Angiogram performed post balloon dilatation. PTCA balloon inflated at 12 atms for 12 secs PTCA balloon inflated at 12 atms for 8 secs nc emerge 3.5 x 15 Balloon catheter was advanced across lesion in the right coronary, mid. em erge 4.00 x 8 Balloon catheter was advanced across lesion in the right coronary, mid. resolute 2.5 x 8 Drug Eluting stent was advanced across the lesion in the right coronary, mid. Drug Eluting stent wa s removed intact, failed to cross lesion. . The arterial sheath was pulled and a TR Band was applied for hemostasis 16 cc's of air. CORONARY ANGIOGRAPHY DOMINANCE: Right Dominant LEFT HEART ASSESSMENT Left Ventricular Ejection Fraction: by LV Gram 60 % LVEDP: 9 mmHg LEFT MAIN: Angiographically normal LEFT ANTERIOR DECENDING ARTERY: 40% Proximal, 70% Mid calcified CIRCUMFLEX ARTERY: 50% Prox OM2; 70% Mid LCX after take off of OM2 RAMUS: Moderate luminal irregularities RIGHT CORONARY ARTERY: Tortous vessel, heavily calcified. 70% Mid, 100% distal INTERVENTION INFORMATION LESION SITE: RCA (Distal) Lesion Complexity: High/C, thrombus present: Yes, culprit lesion: No Pre Stenosis: 100 % Pre intervention LISA flow: 0 PROCEDURE: Drug Eluting Stent with pre and post dilatation Post Stenosis: 10 % Post intervention LISA flow: 3 Lesion Devices: Terumo .014 Runthrough Extra Floppy 180cm straight Jose Sci EMERGE MR 2.25x20 BALLOON [employer] 6 [place]ian GuideLiner Medtronic Resolute RX JAJA 3.0x15 Jose Sci .014 Choice Xtra Support wire 182cm Jose Sci .014 Choice Xtra Support wire 182cm Jose Sci EMERGE MR 3.00x12 BALLOON Jose Sci EMERGE MR 4.00x08 BALLOON Medtronic 6 Fr AL.75 100cm Guide Catheter Medtronic 6 Fr JR4.0 100cm Guide Catheter LESION SITE: RCA (Mid) Lesion Complexity: High/C, culprit lesion: No Pre Stenosis: 70 % Pre intervention LISA flow: 3 PROCEDURE: Drug Eluting Stent with pre and post dilatation Post Stenosis: 0 % Post intervention LISA flow: 3 Lesion Devices: Jose Sci EMERGE MR 3.50x12 BALLOON Jose Sci .014 Choice Xtra Support wire 182cm Jose Sci .014 Choice Xtra Support wire 182cm Jose Sci NC EMERGE MR 3.50x15 BALLOON Medtronic Resolute RX JAJA 3.0x09 Medtronic Resolute RX JAJA 2.5x08 Medtronic 6 Fr AL.75 100cm Guide Catheter Medtronic 6 Fr JR4.0 100cm Guide Catheter COMPLICATIONS No Complications PROCEDURE MEDICATIONS Fentanyl 25 mcg IV Versed 2 mg IV Fentanyl 25 mcg IV Angiomax Bolus 15 ml's 10/29/2017 18:45:35 Angiomax 5mg / ml 35 ml/hr IVBP started 10/29/2017 18:45:53 Atropine 1mg/10ml 1 amp @ 10/29/2017 18:56:08 Verapamil 2.5mg, Ntg 100mcgs, given IA 10/29/2017 18:40:17 IV Bolus: .9 NaCl 500 ml total 10/29/2017 18:57:59 SUMMARY OF HEMODYNAMIC DATA Time AIR REST ECG 18:39:04 AO 99/54 (74) SA 18:57:38 LV 108/-3, 4 20:23:18 LV 118/-3, 6 20:23:29 Signed By Shayne Bolivar MD On 10/30/2017 07:52:52 Shayne Bolivar MD
--- NOTE | 2017-10-30 09:09 | DCINST_ITS ---
- Discharge Diagnoses Current Active Problems: Current Active and Chronic Problems (1) Chest Pain w/ Acute STEMI Inferior s/p PCI w/ RCA notable disease and mid LAD disease w/ planned staged intervention versus medical intervention (2) New onset Diabetes Mellitus type II (3) Hypertension (4) Hyperlipidemia (5) Overweight (6) Tobacco Abuse (7) Left subclavian artery stenosis You will use the following diet at home:: Calorie/Carbohydrate Controlled ( specify 1200, 1400, etc) - ADA 1800 and Cardiac diet., Cardiac - ADA 1800 and Cardiac diet. Your food should be the consistency of: Regular Your liquids should be the consistency of: Regular/Thin Discharge Activity: - - See additional instructions. May resume sexual activity in: - - See additional instructions. Weight Bearing Status: Weight bearing as tolerated Call your doctor if your incision/area has: Continuous Slow Oozing, Sudden Increased Bleeding, Increased Pain/ Swelling, Increased Redness, Foul Smelling Discharge, Swelling at the incision site Call your doctor if you observe: Fever of 101 or Higher, Inability to urinate, Inability to have a bowel movement, Shortness of breath, Dizziness, Fainting spells, Chest pain, Uncontrolled pain Remove Dressing in (days):: 1 Cleanse incision/area with: Soap & Water Instructions: Tips for Quitting Smoking (Cardiovascular), Diabetes and Heart Disease, First Aid: Heart Attacks, Recognizing a Heart Attack or Angina, Understanding Coronary Artery Disease (CAD), Discharge Instructions for Heart Attack, Taking Blood Thinners After Percutaneous Coronary Intervention (PCI), Lifestyle Management After Percutaneous Coronary Intervention (PCI), Why Do You Smoke?, Planning to Quit Smoking, Getting Support for Quitting Smoking, Coping with Smoking Withdrawal, What Is Type 2 Diabetes?, Hyperglycemia (High Blood Sugar), Hypoglycemia (Low Blood Sugar), Long-Term Complications of Diabetes, Oral Medications for Type 2 Diabetes, Healthy Meals for Diabetes Additional Instructions: Additional Follow-up: Diabetes mellitus type II: Your glucose levels were elevated upon admission and your levels from lab testing demonstrate new onset diabetes. Please continue the new diabetes diet interventions per nutrition recommendation. Please start in 72 hours the new oral diabetic medication which will need titrated up per your primary care physician. Coronary Disease: Please continue the newly started medication regimen per Cardiology direction. You will have follow-up evaluation for consideration of further intervention versus medical management of noted coronary disease in the left anterior descending artery. CARDIOLOGY PCI CATH INSTRUCTIONS. Lifting: Must be less than 5 lbs for 5 days, No restrictions after 14 days. Shower: Yes. Climb stairs: Yes. Bathing in tub or submerged water: No, until cleared per Cardiology at follow-up (call office if any concerns [phone] and may leave voicemail if after hours). Walkin minutes 3 times daily, increase as tolerated. Driving: Resume in 7 days. Sexual activity: Resume in 14 days. Regular activity: Resume 14 days Allergies/Adverse Reactions: Allergies No Known Allergies Allergy (Verified 10/29/17 17:30) Medications to take at Discharge Aspirin E.C. [Ecotrin] 81 mg PO DAILY@0800 #30 tab 10/30/17 Atorvastatin Calcium [Lipitor] 40 mg PO QHS #30 tab 10/30/17 Lisinopril [Zestril] 5 mg PO DAILY #30 tab 10/30/17 Metformin HCl [Glucophage] 500 mg PO BIDCM #60 tab 10/30/17 Metoprolol Tartrate [Lopressor (beta svitlana)] 25 mg PO BID #60 tab 10/30/17 Ticagrelor [Brilinta] 90 mg PO BID #60 tab 10/30/17 The following prescriptions were given: Aspirin E.C. [Ecotrin] 81 mg PO DAILY@0800 #30 tab Atorvastatin Calcium [Lipitor] 40 mg PO QHS #30 tab Lisinopril [Zestril] 5 mg PO DAILY #30 tab Metoprolol Tartrate [Lopressor (beta svitlana)] 25 mg PO BID #60 tab Ticagrelor [Brilinta] 90 mg PO BID #60 tab Primary Care Physician: Jarad Mcwilliams Chi, MD [Primary Care Provider] - Please follow up with your Primary Care Physician in: Follow-up within 2-3 days to review admit, review new dx DM, PCI. Please Follow Up With: Fish Torres MD When: Follow-up with Cardiology as advised. Proposed Discharge Date: 10/30/17
[2017-10-30] MEDS: TICAGRELOR 90 MG TABLET PO ×2 (09:22→21:11)
--- NOTE | 2017-10-30 09:22 | CRPHASE1 ---
Patient Data/Charges Phase II Referral:: 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 Risk Factors/Lifestyle Smoking Status: Current every day smoker Hx Hypertension: No Hx Diabetes Mellitus Type 1: No Hx Diabetes Mellitus Type 2: No Hx Metabolic Disorders: No Hx Dyslipidemia: Yes Hx Obesity: Yes Height: 6 ft 4 in - BMI 29.7 Stress: Home/Family ETOH: Yes Risk Factor for Sedentary Lifestyle: Moderate Risk Laboratory Values: Cardiac Rehab Phase I Labs Hemoglobin A1c 6.8 % (4.2-6.3) H 10/29/17 17:29 Triglycerides 181 mg/dL (-199) 10/30/17 04:25 Cholesterol 135 mg/dL (200) 10/30/17 04:25 LDL Cholesterol 73 mg/dL (0-130) 10/30/17 04:25 HDL Cholesterol 26 mg/dL (40-) L 10/30/17 04:25 Phase I Education Given On:: [place], Nutrition, Antiplatelet medication, Smoking cessation Issues Affecting Care:: None Knowledge of Condition:: Yes Learning Preferences: Verbal, Written Hospital Course Presenting Symptoms:: STEMI Medical/Surgical History RI:: Yes - STEMI CAD:: No Diabetes:: No Hypertension:: No Dyslipidemia:: Yes Discharge/Home/Social Eval Discharge Disposition: Home
[2017-10-30] MEDS: Aspirin E.C. 81 MG Tablet PO (09:23)
--- NOTE | 2017-10-30 09:25 | CRPHASE1_ITS ---
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 Smoking Status: Current every day smoker Hx Hypertension: No Hx Diabetes Mellitus Type 1: No Hx Diabetes Mellitus Type 2: No Hx Metabolic Disorders: No Hx Dyslipidemia: Yes Hx Obesity: Yes Height: 6 ft 4 in - BMI 29.7 Stress: Home/Family ETOH: Yes Risk Factor for Sedentary Lifestyle: Moderate Risk Laboratory Values: Cardiac Rehab Phase I Labs Hemoglobin A1c 6.8 % (4.2-6.3) H 10/29/17 17:29 Triglycerides 181 mg/dL (-199) 10/30/17 04:25 Cholesterol 135 mg/dL (200) 10/30/17 04:25 LDL Cholesterol 73 mg/dL (0-130) 10/30/17 04:25 HDL Cholesterol 26 mg/dL (40-) L 10/30/17 04:25 Phase I Education Given On:: [place], Nutrition, Antiplatelet medication, Smoking cessation Issues Affecting Care:: None Knowledge of Condition:: Yes Learning Preferences: Verbal, Written Hospital Course Presenting Symptoms:: STEMI Medical/Surgical History AR:: Yes - STEMI CAD:: No Diabetes:: No Hypertension:: No Dyslipidemia:: Yes Discharge/Home/Social Eval Discharge Disposition: Home
--- NOTE | 2017-10-30 09:25 | CRPH1.INSTRU ---
General Education CAD and cardiac anatomy and function:: Patient communicates acknowledgment Explanation of diagnoses and procedures:: Patient communicates acknowledgment Sign/Symptoms of IL:: Patient communicates acknowledgment Antiplatelet therapy: Patient communicates acknowledgment Proper use of NTG-SL: Patient communicates acknowledgment Emergency procedures and activation of EMS: Patient communicates acknowledgment Compliance of all prescribed medications: Patient communicates acknowledgment Smoking Patient Nicotine/Smoking Risk Factors Are:: Cigarettes Recommendations Include:: Smoking cessation strategies/Smoking packet, Participation in a smoking cessation program Nicotine/Smoking Response Code:: Patient communicates acknowledgment Dyslipidemia Patient Dyslipidemia Risk Factors Are:: Total Cholesterol, Triglycerides, HDL, LDL Recommendations Include:: Lipid profile provided, Reviewed NCEP/ATP guidelines, Therapeutic Lifestyle Change dietary guidelines Dyslipidemia Response Code:: Patient communicates acknowledgment Overweight/Obesity Patient Overweight/Obesity Risk Factors Are:: Overweight = 26-29 Recommendations Include:: Weight loss of 5-10%, Reduced calorie diet, Exercise 5-7 times/week Overweight/Obesity:: Patient communicates acknowledgment Hypertension Patient Hypertension Risk Factors Are:: No documented hx of HTN Heart Disease Heart Disease Response Code:: Patient communicates acknowledgment Diabetes Patient Diabetes Risk Factors Are:: No documented hx of diabetes Metabolic Syndrome Patient Metabolic Syndrome Risk Factors Are [3 of 5]:: Waist circumference > 35 [female] or 40 [male], High triglyceride >150, Low HDL <40 [male] or < 50 [female] Recommendations Include:: Reinforce compliance to risk factor modifications, Encouraged follow-up with Primary Care Physician Metabolic Syndrome Response Code:: Patient communicates acknowledgment Sedentary Patient Sedentary Risk Factors Are:: Lack of regular exercise Recommendations Include:: Aerobic exercise 5-7 times/week for 20-30 minutes continuously, Benefits of regular exercise, Discussed home walking program, Monitored Outpatient Cardiac Rehab Sedentary Response Code:: Patient communicates acknowledgment Stress Recommendations Include:: Identification of stressors, and assessment of coping skills, Stress management techniques Stress Response Code:: Patient communicates acknowledgment
--- NOTE | 2017-10-30 09:28 | CRPH1.INST_ITS ---
General Education CAD and cardiac anatomy and function:: Patient communicates acknowledgment Explanation of diagnoses and procedures:: Patient communicates acknowledgment Sign/Symptoms of CO:: Patient communicates acknowledgment Antiplatelet therapy: Patient communicates acknowledgment Proper use of NTG-SL: Patient communicates acknowledgment Emergency procedures and activation of EMS: Patient communicates acknowledgment Compliance of all prescribed medications: Patient communicates acknowledgment Smoking Patient Nicotine/Smoking Risk Factors Are:: Cigarettes Recommendations Include:: Smoking cessation strategies/Smoking packet, Participation in a smoking cessation program Nicotine/Smoking Response Code:: Patient communicates acknowledgment Dyslipidemia Patient Dyslipidemia Risk Factors Are:: Total Cholesterol, Triglycerides, HDL, LDL Recommendations Include:: Lipid profile provided, Reviewed NCEP/ATP guidelines, Therapeutic Lifestyle Change dietary guidelines Dyslipidemia Response Code:: Patient communicates acknowledgment Overweight/Obesity Patient Overweight/Obesity Risk Factors Are:: Overweight = 26-29 Recommendations Include:: Weight loss of 5-10%, Reduced calorie diet, Exercise 5 -7 times/week Overweight/Obesity:: Patient communicates acknowledgment Hypertension Patient Hypertension Risk Factors Are:: No documented hx of HTN Heart Disease Heart Disease Response Code:: Patient communicates acknowledgment Diabetes Patient Diabetes Risk Factors Are:: No documented hx of diabetes Metabolic Syndrome Patient Metabolic Syndrome Risk Factors Are [3 of 5]:: Waist circumference > 35 [female] or 40 [male], High triglyceride >150, Low HDL <40 [male] or < 50 [ female] Recommendations Include:: Reinforce compliance to risk factor modifications, Encouraged follow-up with Primary Care Physician Metabolic Syndrome Response Code:: Patient communicates acknowledgment Sedentary Patient Sedentary Risk Factors Are:: Lack of regular exercise Recommendations Include:: Aerobic exercise 5-7 times/week for 20-30 minutes continuously, Benefits of regular exercise, Discussed home walking program, Monitored Outpatient Cardiac Rehab Sedentary Response Code:: Patient communicates acknowledgment Stress Recommendations Include:: Identification of stressors, and assessment of coping skills, Stress management techniques Stress Response Code:: Patient communicates acknowledgment
--- NOTE | 2017-10-30 10:28 | ECHOD_ITS ---
Reason For Study: S/P [place] Procedure This was a 2D Doppler, Color Flow transthoracic echocardiogram. Exam performed portable in ICU/CCU. Left Ventricle Normal LV size. Left ventricular systolic function is normal. The estimated ejection fraction is 55 %. Transmitral diastolic flow velocities suggest moderate (stage 2) diastolic dysfunction (pseudonormal pattern). No regional wall motion abnormalities noted. Right Ventricle Normal RV size. Normal systolic function. Atria The left atrium is mildly enlarged. Normal right atrium. Mitral Valve There is moderate mitral annular calcification. Moderate focal mitral valve calcification of the posterior leaflet. Mild (1+) eccentric mitral valve insufficiency. Tricuspid Valve Normal tricuspid valve. Mild (1+) tricuspid valve insufficiency. Pulmonary artery systolic pressure is 38 mmHg. Aortic Valve Normal aortic valve. Pulmonic Valve Normal pulmonic valve. Mild (1+) pulmonic valve insufficiency. Great Vessels Normal aortic root. The pulmonary artery is normal size. Normal inferior vena cava. Pericardium/Pleural No pericardial effusion. MMode/2D Measurements & Calculations LVIDd: 5.7 cm IVSd: 1.2 cm Ao root diam: 3.8 cm LVIDs: 4.5 cm LVPWd: 1.2 cm RVDd: 3.3 cm FS: 21.4 % LAV(MOD-bp): 85.8 ml LVAd ap4: 40.6 cm2 SV(MOD-sp4): 108.6 ml LAV(MOD-bp) Indexed: 35.6 ml/m2 EDV(MOD-sp4): 170.3 ml LAV(MOD-sp2): 84.9 ml EDV(sp4-el): 178.1 ml LAV(MOD-sp4): 78.1 ml LVAs ap4: 19.8 cm2 ESV(MOD-sp4): 61.8 ml ESV(sp4-el): 57.7 ml EF(MOD-sp4): 63.7 % EF(sp4-el): 67.6 % SV(sp4-el): 120.4 ml LA A4 area: 22.3 cm2 RA A4 area: 14.0 cm2 Doppler Measurements & Calculations MV E max caden: 112.2 cm/sec Lat Peak E' Caden: 10.0 cm/sec Med Peak E' Caden: 6.7 cm/sec MV A max caden: 80.2 cm/sec E/E' lat: 11.3 E/E' med: 16.7 MV E/A: 1.4 Ao V2 max: 196.5 cm/sec LV V1 max: 98.4 cm/sec PA V2 max: 81.9 cm/sec Ao max P.4 mmHg LV V1 max P.9 mmHg TR max caden: 286.4 cm/sec TR max P.8 mmHg Interpretation Summary Normal LV size. Left ventricular systolic function is normal. The estimated ejection fraction is 55 %. Transmitral diastolic flow velocities suggest moderate (stage 2) diastolic dysfunction (pseudonormal pattern). Mild (1+) eccentric mitral valve insufficiency. Moderate focal mitral valve calcification of the posterior leaflet. Mild (1+) tricuspid valve insufficiency. Ordering Physician: Fish Torres Referring Physician: Shayne Bolivar Performed By: Pam Montoya RDCS
--- NOTE | 2017-10-30 10:29 | PCM.PN.CARD ---
Subjectve: he is seen and evaluated. Appears to be doing well and wants to go home. No chest pain Objective: Vital Signs Temp Pulse Resp BP Pulse Ox 97.9 F 69 16 94/63 94 10/30/17 08:00 10/30/17 10:00 10/30/17 10:00 10/30/17 10:00 10/30/17 10:00 Oxygen Delivery Method Room Air Weight: 244 lb 0.827 oz Body Mass Index (BMI) 29.7 Intake and Output for Last 24 Hours 10/28/17 10/29/17 10/30/17 23:59 23:59 23:59 Intake Total 1573 / 1573 1480 / 1480 Output Total 150 / 150 775 / 775 Balance 1423 / 1423 705 / 705 General: Awake, Alert, Oriented x 3 HEENT: PERRL, EOMI, Sclera Non Icteric Neck: Supple, Good ROM, No Lymph Node Enlargement Lungs: Clear to auscultation Cardiovascular: Regular Rhythm, Normal S1, Normal S2, No Murmurs, No Rubs, No Gallops Vascular: No Carotid Bruits, Normal Femoral Pulses, Normal Radial Pulses, Normal Dorsalis Pedal Pulse, Normal Posterior Tibial Pulses Abdomen: Bowel Sounds Present, Soft, Non Tender, No HSM, No Organomegaly Extremities: No Cyanosis, No Clubbing, No edema Neurological: No Focal Motor or Sensory Deficit 10/30/17 04:25: WBC 10.2, RBC 4.18 L, Hgb 13.9, Hct 40.5, MCV 96.9 H, MCH 33.3 H, MCHC 34.3, RDW 13.5, RDW Differential 47.4 H, Plt Count 230, MPV 9.7 10/30/17 04:25: Sodium 143, Potassium 3.5, Chloride 109 H, Carbon Dioxide 28.0, Anion Gap 6, BUN 15, Creatinine 0.93, Est GFR (MDRD) Af Amer 104, Est GFR (MDRD) Non-Af 86, BUN/Creatinine Ratio 16.2, Glucose 104, Calcium 7.8 L, Total Bilirubin 0.50, Triglycerides 181, Cholesterol 135, LDL Cholesterol 73, VLDL Cholesterol 36, HDL Cholesterol 26 L 10/30/17 04:45: Troponin I 24.40 H* 10/30/17 08:45: Troponin I 17.60 H* Rhythm: EKG: ECHO: Stress Test: Cardiac Cath: PCI: CT Surgery: Holter monitor: EPS: PPM: CXR: Chest CT Scan: Medical Necessity - Tobacco Use Smoking Status: Current every day smoker Tobacco Use: Cigarettes Assessment/Plan . Status post acute inferior ST elevation myocardial infarction. Angiography revealed total occlusion of the distal right coronary artery. Heavily calcified vessel. About 70% lesion was also noted in the mid RCA. The artery was noted to be a tortuous vessel. Balloon angioplasty and stent placement was performed to the distal RCA using a 2.5 x 12 mm resolute drug-eluting stent. This was postdilated with a 3.0 mm balloon under high pressures. The midright coronary artery lesion was treated using a 3.0 x 15 mm resolute drug-eluting stent. This was postdilated using a 3.5 mm balloon. Distal part of the stent was postdilated using a 4.0 mm balloon. This morning the EKG does not demonstrate any significant acute changes, and hemoglobin remained stable with no significant drop and creatinine is also noted to be stable. The plan will be to continue to observe him and obtain an echocardiogram to assess his left ventricular function. 2. Continue aspirin lifelong. Brilinta treatment for at least one year. Beta blockers. STEVE inhibitor. Statins 3. Patient has about 70% lesion in the mid left anterior descending artery. Follow-up as outpatient. Possible staged PCI versus medical management 4. Overall left ventricular systolic function is normal 5. Nicotine dependence. Counseled to quit 6. Hypertension Would recommend keeping intensive care unit all moved to the stepdown unit later today, before hopeful discharge on Monday cardiac rehabilitation advised.
--- NOTE | 2017-10-30 10:32 | PN.CARD_ITS ---
Subjectve: he is seen and evaluated. Appears to be doing well and wants to go home. No chest pain Objective: Vital Signs Temp Pulse Resp BP Pulse Ox 97.9 F 69 16 94/63 94 10/30/17 08:00 10/30/17 10:00 10/30/17 10:00 10/30/17 10:00 10/30/17 10:00 Oxygen Delivery Method Room Air Weight: 244 lb 0.827 oz Body Mass Index (BMI) 29.7 Intake and Output for Last 24 Hours 10/28/17 10/29/17 10/30/17 23:59 23:59 23:59 Intake Total 1573 / 1573 1480 / 1480 Output Total 150 / 150 775 / 775 Balance 1423 / 1423 705 / 705 General: Awake, Alert, Oriented x 3 HEENT: PERRL, EOMI, Sclera Non Icteric Neck: Supple, Good ROM, No Lymph Node Enlargement Lungs: Clear to auscultation Cardiovascular: Regular Rhythm, Normal S1, Normal S2, No Murmurs, No Rubs, No Gallops Vascular: No Carotid Bruits, Normal Femoral Pulses, Normal Radial Pulses, Normal Dorsalis Pedal Pulse, Normal Posterior Tibial Pulses Abdomen: Bowel Sounds Present, Soft, Non Tender, No HSM, No Organomegaly Extremities: No Cyanosis, No Clubbing, No edema Neurological: No Focal Motor or Sensory Deficit 10/30/17 04:25: WBC 10.2, RBC 4.18 L, Hgb 13.9, Hct 40.5, MCV 96.9 H, MCH 33.3 H , MCHC 34.3, RDW 13.5, RDW Differential 47.4 H, Plt Count 230, MPV 9.7 10/30/17 04:25: Sodium 143, Potassium 3.5, Chloride 109 H, Carbon Dioxide 28.0, Anion Gap 6, BUN 15, Creatinine 0.93, Est GFR (MDRD) Af Amer 104, Est GFR (MDRD ) Non-Af 86, BUN/Creatinine Ratio 16.2, Glucose 104, Calcium 7.8 L, Total Bilirubin 0.50, Triglycerides 181, Cholesterol 135, LDL Cholesterol 73, VLDL Cholesterol 36, HDL Cholesterol 26 L 10/30/17 04:45: Troponin I 24.40 H* 10/30/17 08:45: Troponin I 17.60 H* Rhythm: EKG: ECHO: Stress Test: Cardiac Cath: PCI: CT Surgery: Holter monitor: EPS: PPM: CXR: Chest CT Scan: Medical Necessity - Tobacco Use Smoking Status: Current every day smoker Tobacco Use: Cigarettes Assessment/Plan . Status post acute inferior ST elevation myocardial infarction. Angiography revealed total occlusion of the distal right coronary artery. Heavily calcified vessel. About 70% lesion was also noted in the mid RCA. The artery was noted to be a tortuous vessel. Balloon angioplasty and stent placement was performed to the distal RCA using a 2.5 x 12 mm resolute drug- eluting stent. This was postdilated with a 3.0 mm balloon under high pressures. The midright coronary artery lesion was treated using a 3.0 x 15 mm resolute drug-eluting stent. This was postdilated using a 3.5 mm balloon. Distal part of the stent was postdilated using a 4.0 mm balloon. This morning the EKG does not demonstrate any significant acute changes, and hemoglobin remained stable with no significant drop and creatinine is also noted to be stable. The plan will be to continue to observe him and obtain an echocardiogram to assess his left ventricular function. 2. Continue aspirin lifelong. Brilinta treatment for at least one year. Beta blockers. STEVE inhibitor. Statins 3. Patient has about 70% lesion in the mid left anterior descending artery. Follow-up as outpatient. Possible staged PCI versus medical management 4. Overall left ventricular systolic function is normal 5. Nicotine dependence. Counseled to quit 6. Hypertension Would recommend keeping intensive care unit all moved to the stepdown unit later today, before hopeful discharge on Monday cardiac rehabilitation advised.
[2017-10-30 11:20] LABS: Bedside Glucose 224 mg/dL (70-110)
--- NOTE | 2017-10-30 13:12 | CASEMGMT ---
Intro role of CM to patient in room. He denies dc needs. discussed Brillinta prescriptions. Pt declined savings card. States he gets prescriptions mail order and he will have Dr. Lindsey send to his pharmacy on dc. Glenis TROTTERN RN ACM
[2017-10-30 17:11] LABS: Bedside Glucose 109 mg/dL (70-110)
[2017-10-30] MEDS: Atorvastatin Calcium 40 MG Tablet PO (21:12)
[2017-10-30] MEDS: Metoprolol Tartrate 25 MG Tablet PO (21:12)
[2017-10-30] MEDS: Zolpidem Tartrate 5 MG Tablet PO (21:15)
[2017-10-30 21:36] LABS: Bedside Glucose 99 mg/dL (70-110)
[2017-10-31] VITALS (12 sets, daily range): BP systolic 89–116; BP diastolic 55–83; PULSE 63–88; RESP 13–27; TEMP 36.6–36.9; O2SAT 94–97
--- NOTE | 2017-10-31 05:55 | EKG12_ITS ---
Test Reason : POST OP Blood Pressure : / mmHG Vent. Rate : 077 BPM Atrial Rate : 077 BPM P-R Int : 160 ms QRS Dur : 114 ms QT Int : 414 ms P-R-T Axes : 068 009 049 degrees QTc Int : 468 ms Sinus rhythm with occasional Premature ventricular complexes Confirmed by ANDREA WILSON, PAOLA ([id number]), editor at large GAY JEREZ ([id number] on 11/02/2017 1:54:11 PM Referred By: Shayne Bolivar Confirmed By:PAOLA MENDEZ MD
[2017-10-31 06:31] LABS: Bedside Glucose 134 mg/dL (70-110)
--- NOTE | 2017-10-31 06:36 | PCM.DC.SUM ---
Discharge Date and Diagnosis - Problem List Patient Problems: Active and Suspected Problems STEMI (ST elevation myocardial infarction) (Acute) Hypotension (Acute) following NTG and then again after 2 mg MS Dehydration (Acute) Date of Admission: 10/29/17 Date of Discharge: 10/31/17 - Primary Discharge Diagnosis Active and Suspected Problems (1) Chest Pain w/ Acute STEMI Inferior s/p PCI w/ RCA notable disease and mid LAD disease w/ planned staged intervention versus medical intervention (2) New onset Diabetes Mellitus type II (3) Hypertension (4) Hyperlipidemia (5) Overweight (6) Tobacco Abuse (7) Left subclavian artery stenosis - Secondary Discharge Diagnosis Chronic Problems (1) Hypertension (2) Hyperlipidemia (3) Overweight (4) Tobacco Abuse (5) Left subclavian artery stenosis Hospital Course and Treatment Dr. Torres and Dr. Bolivar Cardiology Operations: None Procedures: 2-D Echocardiogram, Cardiac catheterization, EKG Summary of Care Provided: The patient is a 66 y/o M w/ PMHx: Hypertension, Tobacco use with cigarettes, Left subclavian artery stenosis who presented to the [facility] ED on 10/29/17 with onset of substernal chest pain starting approximately 3 hours prior to ED presentation, continuous, radiation to bilateral upper extremities with dyspnea, nausea and diaphoresis with initial EKG without ST elevation but repeat with STEMI inferior leads. Initial cardiac enzyme 0.02 w/ follow-up trend <0.02->24.40->17.60->14.50->9.61. Mag 1.8. Placed on nitroglycerin in the ER with BP drop. Patient administered loading dose Brilinta and aspirin therapy in addition to normal saline bolus. Cardiology, Dr. Bolivar consulted and cardiac cath performed emergently. Catheterization with total occlusion distal RCA, heavily calcified, 70% lesion noted in the mid RCA noted to be a tortuous vessel, balloon angioplasty and stent placement performed in the distal RCA, mid right coronary artery lesion treated using drug-eluting stent, distal part of the stent was postdilated. ECHO obtained w/ normal LV size, normal LV systolic function, EF 55%, transmitral diastolic flow velocities suggestive of moderate stage II diastolic dysfunction, mild MV insufficiency, moderate MV calcification posterior leaflet, mild TV insufficiency. Post-cardiac catheterization recommendations with aspirin lifelong, Brilinta treatment ?1 year, beta-marianne, NORMAN inhibitor, statin. Patient transitioned to the ICU following PCI per protocol without further event. Discharge plan to follow-up outpatient for continued evaluation of 70% lesion in the mid LAD with possible staged PCI versus medical management. During admission patient with noted hyperglycemia, diagnosis new onset Diabetes Mellitus type II, HgbA1c obtained 6.8%, added discharge medication metformin to be started per protocol timeline given recent catheterization w/ IV Contrast, nutrition education performed with close PCP follow-up. Patient discharged to home in improved stable condition w/ medication regimen including asa, brillinta, statin, BB, ACEI, metformin. DAY OF DISCHARGE PROGRESS NOTE: Subjective: Patient without acute event overnight per self and nursing report. Patient denies fever, chills, nausea, emesis, abdominal pain, recurrent or worsened chest pain or dyspnea. Patient agreeable to discharge to home. Encouraged rest upon discharge. Patient will be discharged with follow-up with primary care physician within 3-5 days in addition to Cardiology per their direction. Objective: T 98.2, heart rate 105/59, respiratory rate 16, 97% on room air. Physical Examination: General: awake, alert, oriented x 3 and cooperative, seated upright in the ICU bed in no apparent distress. Skin: normal color, turgor, no icterus, cyanosis. HEENT: AT/NC, EOMI, PERRLA, MMM. Lungs: Diminished BS BL, > bases, moderate effort, mild decrease BL bases, improved w/ cough, no rales, ronchi or wheezing. Heart: Regular rate and rhythm; no gallop, rub audible. Abdomen: soft, overweight, NTTP, ND, normal BS, no HSM. Extremities: no cyanosis, clubbing, or edema, see skin, L wrist with mild peripheral pulse delay, chronic. Neurological: patient awake, alert, oriented x 3; cognitive function intact; pupils equally reactive to light and accomodation; cranial nerves II-XII grossly normal, moving all 4 extremities, no focal deficits, strength improved, mildly globally decreased. Psychiatric: affect appears normal, no acute evidence of depressive or anxiety feelings. Assessment and Plan: Please see hospital summary above. Discharge Activity: - - See additional instructions. May resume sexual activity in: - - See additional instructions. Weight Bearing Status: Weight bearing as tolerated Call your doctor if your incision/area has: Continuous Slow Oozing, Sudden Increased Bleeding, Increased Pain/ Swelling, Increased Redness, Foul Smelling Discharge, Swelling at the incision site Call your doctor if you observe: Fever of 101 or Higher, Inability to urinate, Inability to have a bowel movement, Shortness of breath, Dizziness, Fainting spells, Chest pain, Uncontrolled pain Remove Dressing in (days):: 1 Cleanse incision/area with: Soap & Water Home Medications: Medications to take at Discharge RX: Aspirin E.C. [Ecotrin] 81 mg PO DAILY@0800 #30 tab 10/30/17 RX: Atorvastatin Calcium [Lipitor] 40 mg PO QHS #30 tab 10/30/17 RX: Lisinopril [Zestril] 5 mg PO DAILY #30 tab 10/30/17 RX: Metformin HCl [Glucophage] 500 mg PO BIDCM #60 tab 10/30/17 RX: Metoprolol Tartrate [Lopressor (beta marianne)] 25 mg PO BID #60 tab 10/30/17 RX: Ticagrelor [Brilinta] 90 mg PO BID #60 tab 10/30/17 Following Prescrptions Were Given to Patient: RX: Aspirin E.C. [Ecotrin] 81 mg PO DAILY@0800 #30 tab RX: Atorvastatin Calcium [Lipitor] 40 mg PO QHS #30 tab RX: Lisinopril [Zestril] 5 mg PO DAILY #30 tab RX: Metformin HCl [Glucophage] 500 mg PO BIDCM #60 tab RX: Metoprolol Tartrate [Lopressor (beta marianne)] 25 mg PO BID #60 tab RX: Ticagrelor [Brilinta] 90 mg PO BID #60 tab Primary Care Physician: Jarad Mcwilliams Chi, MD [Primary Care Provider] - Please follow up with your Primary Care Physician in: Follow-up within 2-3 days to review admit, review new dx DM, PCI. Please Follow Up With: Fish Torres MD When: Follow-up with Cardiology as advised. Patient Instructions: Tips for Quitting Smoking (Cardiovascular), Diabetes and Heart Disease, Long-Term Complications of Diabetes, Hyperglycemia (High Blood Sugar), Hypoglycemia (Low Blood Sugar), What Is Type 2 Diabetes?, Oral Medications for Type 2 Diabetes, Healthy Meals for Diabetes, First Aid: Heart Attacks, Recognizing a Heart Attack or Angina, Why Do You Smoke?, Planning to Quit Smoking, Getting Support for Quitting Smoking, Coping with Smoking Withdrawal, Understanding Coronary Artery Disease (CAD), Discharge Instructions for Heart Attack, Taking Blood Thinners After Percutaneous Coronary Intervention (PCI), Lifestyle Management After Percutaneous Coronary Intervention (PCI) Disposition: Home Minutes spent on discharge:: 35 Patient Condition:: Fair Medical Necessity - Tobacco Use Smoking Status: Current every day smoker Tobacco Use: Cigarettes Meaningful Use Info Meaningful Use Diagnoses (Choose all that apply): AMI - AMI Aspirin given w/in 24hrs of arrival?: Yes ASA at discharge?: Yes Statins at discharge?: Yes Norman/ARB at discharge?: Yes Beta Marianne at discharge?: Yes Done w/ Acute [place] measure.: Yes Code Visit Inpatient E&M: 79972 Disch Hosp
--- NOTE | 2017-10-31 06:42 | DS.PCM_ITS ---
Discharge Date and Diagnosis - Problem List Patient Problems: Active and Suspected Problems STEMI (ST elevation myocardial infarction) (Acute) Hypotension (Acute) following NTG and then again after 2 mg MS Dehydration (Acute) Date of Admission: 10/29/17 Date of Discharge: 10/31/17 - Primary Discharge Diagnosis Active and Suspected Problems (1) Chest Pain w/ Acute STEMI Inferior s/p PCI w/ RCA notable disease and mid LAD disease w/ planned staged intervention versus medical intervention (2) New onset Diabetes Mellitus type II (3) Hypertension (4) Hyperlipidemia (5) Overweight (6) Tobacco Abuse (7) Left subclavian artery stenosis - Secondary Discharge Diagnosis Chronic Problems (1) Hypertension (2) Hyperlipidemia (3) Overweight (4) Tobacco Abuse (5) Left subclavian artery stenosis Hospital Course and Treatment Dr. Torres and Dr. Bolivar Cardiology Operations: None Procedures: 2-D Echocardiogram, Cardiac catheterization, EKG Summary of Care Provided: The patient is a 66 y/o M w/ PMHx: Hypertension, Tobacco use with cigarettes, Left subclavian artery stenosis who presented to the [facility] ED on 10/29/17 with onset of substernal chest pain starting approximately 3 hours prior to ED presentation, continuous, radiation to bilateral upper extremities with dyspnea , nausea and diaphoresis with initial EKG without ST elevation but repeat with STEMI inferior leads. Initial cardiac enzyme 0.02 w/ follow-up trend <0.02-> 24.40->17.60->14.50->9.61. Mag 1.8. Placed on nitroglycerin in the ER with BP drop. Patient administered loading dose Brilinta and aspirin therapy in addition to normal saline bolus. Cardiology, Dr. Bolivar consulted and cardiac cath performed emergently. Catheterization with total occlusion distal RCA, heavily calcified, 70% lesion noted in the mid RCA noted to be a tortuous vessel , balloon angioplasty and stent placement performed in the distal RCA, mid right coronary artery lesion treated using drug-eluting stent, distal part of the stent was postdilated. ECHO obtained w/ normal LV size, normal LV systolic function, EF 55%, transmitral diastolic flow velocities suggestive of moderate stage II diastolic dysfunction, mild MV insufficiency, moderate MV calcification posterior leaflet, mild TV insufficiency. Post-cardiac catheterization recommendations with aspirin lifelong, Brilinta treatment ?1 year, beta-marianne, NORMAN inhibitor, statin. Patient transitioned to the ICU following PCI per protocol without further event. Discharge plan to follow-up outpatient for continued evaluation of 70% lesion in the mid LAD with possible staged PCI versus medical management. During admission patient with noted hyperglycemia, diagnosis new onset Diabetes Mellitus type II, HgbA1c obtained 6.8%, added discharge medication metformin to be started per protocol timeline given recent catheterization w/ IV Contrast, nutrition education performed with close PCP follow-up. Patient discharged to home in improved stable condition w/ medication regimen including asa, brillinta, statin, BB, ACEI, metformin. DAY OF DISCHARGE PROGRESS NOTE: Subjective: Patient without acute event overnight per self and nursing report. Patient denies fever, chills, nausea, emesis, abdominal pain, recurrent or worsened chest pain or dyspnea. Patient agreeable to discharge to home. Encouraged rest upon discharge. Patient will be discharged with follow-up with primary care physician within 3-5 days in addition to Cardiology per their direction. Objective: T 98.2, heart rate 105/59, respiratory rate 16, 97% on room air. Physical Examination: General: awake, alert, oriented x 3 and cooperative, seated upright in the ICU bed in no apparent distress. Skin: normal color, turgor, no icterus, cyanosis. HEENT: AT/NC, EOMI, PERRLA, MMM. Lungs: Diminished BS BL, > bases, moderate effort, mild decrease BL bases, improved w/ cough, no rales, ronchi or wheezing. Heart: Regular rate and rhythm; no gallop, rub audible. Abdomen: soft, overweight, NTTP, ND, normal BS, no HSM. Extremities: no cyanosis, clubbing, or edema, see skin, L wrist with mild peripheral pulse delay, chronic. Neurological: patient awake, alert, oriented x 3; cognitive function intact; pupils equally reactive to light and accomodation; cranial nerves II-XII grossly normal, moving all 4 extremities, no focal deficits, strength improved, mildly globally decreased. Psychiatric: affect appears normal, no acute evidence of depressive or anxiety feelings. Assessment and Plan: Please see hospital summary above. Discharge Activity: - - See additional instructions. May resume sexual activity in: - - See additional instructions. Weight Bearing Status: Weight bearing as tolerated Call your doctor if your incision/area has: Continuous Slow Oozing, Sudden Increased Bleeding, Increased Pain/ Swelling, Increased Redness, Foul Smelling Discharge, Swelling at the incision site Call your doctor if you observe: Fever of 101 or Higher, Inability to urinate, Inability to have a bowel movement, Shortness of breath, Dizziness, Fainting spells, Chest pain, Uncontrolled pain Remove Dressing in (days):: 1 Cleanse incision/area with: Soap & Water Home Medications: Medications to take at Discharge RX: Aspirin E.C. [Ecotrin] 81 mg PO DAILY@0800 #30 tab 10/30/17 RX: Atorvastatin Calcium [Lipitor] 40 mg PO QHS #30 tab 10/30/17 RX: Lisinopril [Zestril] 5 mg PO DAILY #30 tab 10/30/17 RX: Metformin HCl [Glucophage] 500 mg PO BIDCM #60 tab 10/30/17 RX: Metoprolol Tartrate [Lopressor (beta marianne)] 25 mg PO BID #60 tab RX: Ticagrelor [Brilinta] 90 mg PO BID #60 tab 10/30/17 Following Prescrptions Were Given to Patient: RX: Aspirin E.C. [Ecotrin] 81 mg PO DAILY@0800 #30 tab RX: Atorvastatin Calcium [Lipitor] 40 mg PO QHS #30 tab RX: Lisinopril [Zestril] 5 mg PO DAILY #30 tab RX: Metformin HCl [Glucophage] 500 mg PO BIDCM #60 tab RX: Metoprolol Tartrate [Lopressor (beta marianne)] 25 mg PO BID #60 tab RX: Ticagrelor [Brilinta] 90 mg PO BID #60 tab Primary Care Physician: Jarad Mcwilliams Chi, MD [Primary Care Provider] - Please follow up with your Primary Care Physician in: Follow-up within 2-3 days to review admit, review new dx DM, PCI. Please Follow Up With: Fish Torres MD When: Follow-up with Cardiology as advised. Patient Instructions: Tips for Quitting Smoking (Cardiovascular), Diabetes and Heart Disease, Long-Term Complications of Diabetes, Hyperglycemia (High Blood Sugar), Hypoglycemia (Low Blood Sugar), What Is Type 2 Diabetes?, Oral Medications for Type 2 Diabetes, Healthy Meals for Diabetes, First Aid: Heart Attacks, Recognizing a Heart Attack or Angina, Why Do You Smoke?, Planning to Quit Smoking, Getting Support for Quitting Smoking, Coping with Smoking Withdrawal, Understanding Coronary Artery Disease (CAD), Discharge Instructions for Heart Attack, Taking Blood Thinners After Percutaneous Coronary Intervention (PCI), Lifestyle Management After Percutaneous Coronary Intervention (PCI) Disposition: Home Minutes spent on discharge:: 35 Patient Condition:: Fair Medical Necessity - Tobacco Use Smoking Status: Current every day smoker Tobacco Use: Cigarettes Meaningful Use Info Meaningful Use Diagnoses (Choose all that apply): AMI - AMI Aspirin given w/in 24hrs of arrival?: Yes ASA at discharge?: Yes Statins at discharge?: Yes Norman/ARB at discharge?: Yes Beta Marianne at discharge?: Yes Done w/ Acute [place] measure.: Yes Code Visit Inpatient E&M: 81445 Disch Hosp
[2017-10-31] MEDS: Metoprolol Tartrate 25 MG Tablet PO (07:56)
[2017-10-31] MEDS: TICAGRELOR 90 MG TABLET PO (07:56)
[2017-10-31] MEDS: Lisinopril 5 MG Tablet PO (07:57)
[2017-10-31] MEDS: Aspirin E.C. 81 MG Tablet PO (07:57)
== END 2017-10-31 08:15 | disposition home or self-care (01) | DRG 247 ==
LOC: ED 18:15 → ICU 18:30
PROVIDERS: Internal Medicine; Internal Medicine Cardiovascular Disease; Admitting Provider Internal Medicine Cardiovascular Disease; Emergency Provider Emergency Medicine; Family Provider Family Medicine Geriatric Medicine; PCP Family Medicine Geriatric Medicine; Visit Provider Family Medicine
DX: I21.19 ST elevation (STEMI) myocardial infarction involving other coronary artery of inferior wall (principal); I10 Essential (primary) hypertension; F17.210 Nicotine dependence, cigarettes, uncomplicated; E78.5 Hyperlipidemia, unspecified; I70.8 Atherosclerosis of other arteries; E11.65 Type 2 diabetes mellitus with hyperglycemia; E66.3 Overweight; E86.0 Dehydration; H91.10 Presbycusis, unspecified ear; I95.2 Hypotension due to drugs; T46.3X5A Adverse effect of coronary vasodilators, initial encounter; T40.2X5A Adverse effect of other opioids, initial encounter; Y92.538 Other ambulatory health services establishments as the place of occurrence of the external cause; Z68.29 Body mass index [BMI] 29.0-29.9, adult; Z79.84 Long term (current) use of oral hypoglycemic drugs; Z79.82 Long term (current) use of aspirin; Z79.899 Other long term (current) drug therapy
CPT/HCPCS: 71045; 80048; 80053; 80061; 80076; 82962; 83036; 83735; 84484; 85025; 85027; 85347; 85610; 85730; 87641; 92941; 93005; 93306; 93458; 99152; 99153; 99285; 99406; J7030; Q9967; A4216; C1725; C1769; C1874; C1887; C1894; C9606; J0583; J2405

== ENCOUNTER → 2017-12-20 10:06 | Outpatient (CLI) | payer MEDICARE, OTHER, SELFPAY ==
--- NOTE | 2017-12-20 10:09 | PCM.CR.HP2 ---
CR - History & Physical - General Arrival date:: 12/20/17 Arrival time:: 10:10 Date of Referral:: 10/29/17 Date of CR Evaluation:: 12/20/17 Referring Physician: Dr. Fish Torres Primary Diagnosis: Z95.9, I21.3 coronary artery stenting 10/29/2017 - History of Present Cardiac Event Onset Date: Enter Onset Date of cardiac illnesses in Comment field below Acute Myocardial Infarction within 12 months:: Yes PTCA or coronary stenting:: Yes - Medications Home Medications: Ambulatory Orders Medication Instructions Recorded Aspirin E.C. [Ecotrin] 81 mg PO DAILY@0800 #30 tab 10/30/17 lisinopril 20 1 tab PO BID 90 Days #180 tab 11/16/17 mg-hydrochlorothiazide 12.5 mg tablet metoprolol tartrate 50 mg tablet 50 mg PO BID 90 Days #180 tab 11/16/17 ticagrelor 90 mg tablet 90 mg PO BID #180 tab 11/27/17 - Allergies Allergies/Adverse Reactions: Allergies No Known Allergies Allergy (Verified 11/16/17 12:57) - Sleep Disorder Evaluation Hx of Sleep Apnea: No Do you snore loudly (louder than talking or can be heard through closed doors)?: No Do you often feel tired/ fatigued/ sleepy during daytime?: No Has anyone observed you stop breathing during sleep?: No History of Hypertension (for STOP score): Yes STOP Results: Negative Advanced Directives - Advanced Directives Power of Pin Inserter Regulator: No Living Will: No Advance Directives Information Provided: No Advance Directives on File: No DNR Order?:: No Past Medical History - Past Medical Illness Medical History: Past Medical History (Last Reviewed 11/16/17 @ 13:24 by Fish Torres MD) Hypokalemia (Chronic) E87.6 HLD (hyperlipidemia) (Chronic) E78.5 HTN (hypertension) (Chronic) I10 Tobacco dependence due to cigarettes (Chronic) F17.210 Stenosis of left subclavian artery (Chronic) I77.1 [place] (hard of hearing) (Chronic) H91.90 GERD (gastroesophageal reflux disease) K21.9 - Past Surgical History Surgical History: Past Surgical History (Last Reviewed 11/16/17 @ 13:24 by Fish Torres MD) S/P angioplasty with stent (Acute) Z95.9 PTCA/JAJA of the distal RCA and mid RCA 10/29/2017; History of herniorrhaphy Z98.890, Z87.19 Left inguinal Hx of elbow surgery Z98.890 Surgical History: herniorrhaphy - Left inguinal, - - elbow surgery - Family History Summary Family History: Family History (Last Reviewed 11/16/17 @ 13:24 by Fish Torres MD) Father Negative FH of ASCVD Social History - Smoking History Smoking Status: Current every day smoker Years Smokin Packs Smoked per Day: 1.5 Hx Tobacco Use: Yes - Alcohol Use Alcohol Usage: No - Substance Abuse Hx Substance Use: No - Occupation Occupation (List type of work in comments):: Retired - Hobbies, Recreation, Social Activities Hobbies: Sports, Watch TV, Exercise Recreational Activities: I am able to engage in all my recreational activities Social Environment - Status Marital Status: - Current Living Arrangements Living Environment:: Spouse - Children How many children do you have?: 3 Do any of your children live nearby?: Yes - Safety Do you feel safe in your surroundings?: Yes - Assistance Do you need any assistance at home?: none Review of Systems - Review of Systems Hints: Right click = Denies (Slash). Left click = Reports ([place]) Review of Present Symptoms: Reports: Shortness of Breath with Exertion, Dizziness/Lightheadedness, Fatigue, Appetite - Normal, Sleep - Normal. Denies: Shortness of Breath at Rest, PVD, Operative Discomfort, Angina, Wound Healing, Heart Arrhythmia/Irregularities, Appetite - Special Diet, Sexual Changes - Pain Is Patient Pain Free?: No Pain Location: other - foot pain Pain Level: 5/10 Risk Factor Assessment - Chief Complaint Chief Complaint: STEMI, PCI - Vital Signs Pulse Ox: 98 - Pulse Pulse Rate: 76 Pulse Rhythm: Regular - Hypertension How long have you been treated?: 35 Blood Pressure Sitting - Left Arm: 110/72 - Stress Stress: Recent - resolved - Diabetes Nutrition Referral for Diabetes: No - Obesity Height: 1.93 m Weight:: 107.501 kg Weight in Pounds: 237.0 lbs Weight Source: Standing Scale Body Mass Index (BMI): 28.8 Nutritional Referral for Obesity: No - Physical Inactivity Physical Inactivity: Reg Exercise 30 min/day, Physically demanding job, Recreational activity, None - Risk Stratification Risk Guidelines: Moderate Risk: Risk Factor for Dyslipidemia, Risk Factor for Diabetes, Risk Factor for Obesity, Risk Factor for Hypertension, Risk Factor for Sedentary Lifestyle, Risk Factor for Depression, Highest Risk: Risk Factor for Smoking - For Smoking Smoking Risk Guidelines: Smoking Low Risk: None or quit greater than 6 months ago. Smoking Moderate Risk: Smoker or quit 6 months or less ago. Smoking High Risk: Smoker - For Dyslipidemia Dyslipidemia Risk Guidelines: Low Risk: Moderate Risk: High Risk: 15-25% fat 25.1-29% fat >/= 30% fat. <7% sat fat 7-9% sat fat >9% sat fat. <150 mg chol 150-299 mg chol >/= 300 mg chol. LDL <100 LDL 100-129 LDL >/= 130. Chol/HDL ratio <5.0 Chol/HDL ratio 5.0-6.0 Chol/HDL ratio >6.0. Triglycerides <100 Triglycerides 100-149 Triglycerides >/= 150 - For Diabetes Mellitus Diabetes Risk Guidelines: Diabetes Low Risk: HgA1c <6.5% and/or FBG <120. Diabetes Moderate Risk: HgA1c 6.6-7.9% and/or FBG 120-180. Diabetes High Risk: HgA1c >/= 8% and/or FBG >180 - For Obesity/Overweight Obesity/Overweight Risk Guidelines: Obesity Low Risk: BMI <25.0. Obesity Moderate Risk: BMI 25-29.9. Obesity High Risk: BMI >/= 30.0 - For Hypertension Hypertension Risk Guidelines: Hypertension Low Risk: Systolic <120 and Diastolic <80. Hypertension Moderate Risk: Systolic 120-139 and Diastolic 80-89. Hypertension High Risk: Systolic >/= 140 and Diastolic >/= 90 - For Sedentary Lifestyle Sedentary Lifestyle Risk Guidelines: Sedentary Lifestyle Low Risk: >/= 1,500 kcal/week. Sedentary Lifestyle Moderate Risk: 700-1,499 kcal/week. Sedentary Lifestyle High Risk: < 700 kcal/week - For Depression Depression Risk Guidelines: Depression Low Risk: Not clinically depressed. Depression Moderate Risk: Mildly depressed. Depression High Risk: Clinically depressed - Family History Family History: Family History (Last Reviewed 11/16/17 @ 13:24 by Fish Torres MD) Father Negative FH of ASCVD Motivation - Motivation to Participate On a scale of 1 to 10, how prepared are you to commit to attending program?: 9 What do you see as barriers to successfully being able to complete the program?: none What do you see as the benefits of succesfully completing the program? In other words, what do you hope to get out of participating in the program?: better fitness, more energy Are there issues you are dealing with that will interfere with completing the program?: none Do you have a spouse or signficant other, family or friends who will help support you to complete the program?: yes
--- NOTE | 2017-12-20 10:20 | CR.HP_ITS ---
CR - History & Physical - General Arrival date:: 12/20/17 Arrival time:: 10:10 Date of Referral:: 10/29/17 Date of CR Evaluation:: 12/20/17 Referring Physician: Dr. Fish Torres Primary Diagnosis: Z95.9, I21.3 coronary artery stenting 10/29/2017 - History of Present Cardiac Event Onset Date: Enter Onset Date of cardiac illnesses in Comment field below Acute Myocardial Infarction within 12 months:: Yes PTCA or coronary stenting:: Yes - Medications Home Medications: Ambulatory Orders Medication Instructions Recorded Aspirin E.C. [Ecotrin] 81 mg PO DAILY@0800 #30 tab 10/30/17 lisinopril 20 1 tab PO BID 90 Days #180 tab 11/16/17 mg-hydrochlorothiazide 12.5 mg tablet metoprolol tartrate 50 mg tablet 50 mg PO BID 90 Days #180 tab 11/16/17 ticagrelor 90 mg tablet 90 mg PO BID #180 tab 11/27/17 - Allergies Allergies/Adverse Reactions: Allergies No Known Allergies Allergy (Verified 11/16/17 12:57) - Sleep Disorder Evaluation Hx of Sleep Apnea: No Do you snore loudly (louder than talking or can be heard through closed doors)? : No Do you often feel tired/ fatigued/ sleepy during daytime?: No Has anyone observed you stop breathing during sleep?: No History of Hypertension (for STOP score): Yes STOP Results: Negative Advanced Directives - Advanced Directives Power of Firmware Engineer: No Living Will: No Advance Directives Information Provided: No Advance Directives on File: No DNR Order?:: No Past Medical History - Past Medical Illness Medical History: Past Medical History (Last Reviewed 11/16/17 @ 13:24 by Fish Torres MD) Hypokalemia (Chronic) E87.6 HLD (hyperlipidemia) (Chronic) E78.5 HTN (hypertension) (Chronic) I10 Tobacco dependence due to cigarettes (Chronic) F17.210 Stenosis of left subclavian artery (Chronic) I77.1 [place] (hard of hearing) (Chronic) H91.90 GERD (gastroesophageal reflux disease) K21.9 - Past Surgical History Surgical History: Past Surgical History (Last Reviewed 11/16/17 @ 13:24 by Fish Torres MD) S/P angioplasty with stent (Acute) Z95.9 PTCA/JAJA of the distal RCA and mid RCA 10/29/2017; History of herniorrhaphy Z98.890, Z87.19 Left inguinal Hx of elbow surgery Z98.890 Surgical History: herniorrhaphy - Left inguinal, - - elbow surgery - Family History Summary Family History: Family History (Last Reviewed 11/16/17 @ 13:24 by Fish Torres MD) Father Negative FH of ASCVD Social History - Smoking History Smoking Status: Current every day smoker Years Smokin Packs Smoked per Day: 1.5 Hx Tobacco Use: Yes - Alcohol Use Alcohol Usage: No - Substance Abuse Hx Substance Use: No - Occupation Occupation (List type of work in comments):: Retired - Hobbies, Recreation, Social Activities Hobbies: Sports, Watch TV, Exercise Recreational Activities: I am able to engage in all my recreational activities Social Environment - Status Marital Status: - Current Living Arrangements Living Environment:: Spouse - Children How many children do you have?: 3 Do any of your children live nearby?: Yes - Safety Do you feel safe in your surroundings?: Yes - Assistance Do you need any assistance at home?: none Review of Systems - Review of Systems Hints: Right click = Denies ([place]). Left click = Reports ([place]) Review of Present Symptoms: Reports: Shortness of Breath with Exertion, Dizziness/Lightheadedness, Fatigue, Appetite - Normal, Sleep - Normal. Denies: Shortness of Breath at Rest, PVD, Operative Discomfort, Angina, Wound Healing, Heart Arrhythmia/Irregularities, Appetite - Special Diet, Sexual Changes - Pain Is Patient Pain Free?: No Pain Location: other - foot pain Pain Level: 5/10 Risk Factor Assessment - Chief Complaint Chief Complaint: STEMI, PCI - Vital Signs Pulse Ox: 98 - Pulse Pulse Rate: 76 Pulse Rhythm: Regular - Hypertension How long have you been treated?: 35 Blood Pressure Sitting - Left Arm: 110/72 - Stress Stress: Recent - resolved - Diabetes Nutrition Referral for Diabetes: No - Obesity Height: 1.93 m Weight:: 107.501 kg Weight in Pounds: 237.0 lbs Weight Source: Standing Scale Body Mass Index (BMI): 28.8 Nutritional Referral for Obesity: No - Physical Inactivity Physical Inactivity: Reg Exercise 30 min/day, Physically demanding job, Recreational activity, None - Risk Stratification Risk Guidelines: Moderate Risk: Risk Factor for Dyslipidemia, Risk Factor for Diabetes, Risk Factor for Obesity, Risk Factor for Hypertension, Risk Factor for Sedentary Lifestyle, Risk Factor for Depression, Highest Risk: Risk Factor for Smoking - For Smoking Smoking Risk Guidelines: Smoking Low Risk: None or quit greater than 6 months ago. Smoking Moderate Risk: Smoker or quit 6 months or less ago. Smoking High Risk: Smoker - For Dyslipidemia Dyslipidemia Risk Guidelines: Low Risk: Moderate Risk: High Risk: 15-25% fat 25.1-29% fat >/= 30% fat. <7% sat fat 7-9% sat fat >9% sat fat. <150 mg chol 150-299 mg chol >/= 300 mg chol. LDL <100 LDL 100-129 LDL >/= 130. Chol/HDL ratio <5.0 Chol/HDL ratio 5.0-6.0 Chol/HDL ratio >6.0. Triglycerides <100 Triglycerides 100-149 Triglycerides >/= 150 - For Diabetes Mellitus Diabetes Risk Guidelines: Diabetes Low Risk: HgA1c <6.5% and/or FBG <120. Diabetes Moderate Risk: HgA1c 6.6-7.9% and/or FBG 120-180. Diabetes High Risk: HgA1c >/= 8% and/or FBG >180 - For Obesity/Overweight Obesity/Overweight Risk Guidelines: Obesity Low Risk: BMI <25.0. Obesity Moderate Risk: BMI 25-29.9. Obesity High Risk: BMI >/= 30.0 - For Hypertension Hypertension Risk Guidelines: Hypertension Low Risk: Systolic <120 and Diastolic <80. Hypertension Moderate Risk: Systolic 120-139 and Diastolic 80-89. Hypertension High Risk: Systolic >/= 140 and Diastolic >/= 90 - For Sedentary Lifestyle Sedentary Lifestyle Risk Guidelines: Sedentary Lifestyle Low Risk: >/= 1 ,500 kcal/week. Sedentary Lifestyle Moderate Risk: 700-1,499 kcal/week. Sedentary Lifestyle High Risk: < 700 kcal/week - For Depression Depression Risk Guidelines: Depression Low Risk: Not clinically depressed. Depression Moderate Risk: Mildly depressed. Depression High Risk: Clinically depressed - Family History Family History: Family History (Last Reviewed 11/16/17 @ 13:24 by Fish Torres MD) Father Negative FH of ASCVD Motivation - Motivation to Participate On a scale of 1 to 10, how prepared are you to commit to attending program?: 9 What do you see as barriers to successfully being able to complete the program? : none What do you see as the benefits of succesfully completing the program? In other words, what do you hope to get out of participating in the program?: better fitness, more energy Are there issues you are dealing with that will interfere with completing the program?: none Do you have a spouse or signficant other, family or friends who will help support you to complete the program?: yes
[2017-12-20 11:14] VITALS: BP 110/72; PULSE 76; O2SAT 98; BMI 28.8
--- NOTE | 2017-12-20 11:16 | PCM.CR.ITP ---
General Information - General Information Admitting Diagnosis: Z95.9, I 21.3 - Education/Goals Barriers to Learning: Hearing Impairment Cardiac Rehabilitation Goals: 1. Maintain the individual as the primary focus of care. 2. To improve the patient's quality of life. 3. Identification of cardiac risk factors and provide cardiac risk factor management. 4. Enhance the psychosocial status of the patient. 5. Reconditioning enough to allow the patient to resume customary activities. 6. Control symptoms of cardiac disease Scale for measuring improvement of personal goals: Enter appropriate number in Comments. 2 = Unchanged. 3 = Slightly Better. 4 = Moderate Improvement. 5 = Met my Goal Personal Goals: Initial Assessment: Quit smoking (participate in smoking cessation, Improve energy level, Improve knowledge of cardiac disease, Improve muscle strength and endurance Exercise - Initial Assessment - Visit Date of Eval: 12/20/17 - initial eval - Stages of Change Stages of Change:: Contemplate - Exercise Prescription Mode:: Treadmill, Biodyne, Rower, Airdyne, NuStep, Arm Ergometer Angina with exercise?: No Target Heart Rate:: 114-121 - Hypertension Do any of the following apply?: Yes Resting Blood Pressure:: 120/72 - Intervention Home Exercise/Activity Goal:: Sitting Time <3 hrs/day - Education Goals:: Warm-up, RPE AMBROSE Scale, S/S, Safe Exercise, Self-Monitoring - Exercise Program Goals Exercise Program Goals: Aerobic Activity >30 min, B/P <130/80 Nutrition - Initial Assessment - Program Goals Nutrition Program Goals: LDL <70. Total Cholesterol <200. HDL >45. Triglycerides <150. HgbA1C <7%. BMI <25 - Visit Date of Assessment:: 12/20/17 - initial eval - Stages of Change Stages of Change:: Contemplate - Diabetes Diabetes:: No - Weight Management Height: 1.93 m Weight:: 107.501 kg Total Score:: 0 - Intervention Referral to dietitian:: No Referral to Diabetic Clinic:: No Will attend diet classes:: Yes - Education Gave educational materials for:: Signs & symptoms of hypoglycemia, Signs & symptoms of hyperglycemia, Relate diabetes to coronary artery disease, Healthy eating Tobacco - Initial Assessment - Program Goals Tobacco Program Goals: Complete smoking cessation. Attend education classes. Improve Knowledge Test score - Stage of Change Stages of Change:: Contemplate - Learning Barriers Learning Barriers: Hearing Total Score:: 18 - Family Support Do you have family support?: Yes - Tobacco Use Tobacco Use: Cigarettes Do you use smokeless tobacco?: No - Intervention Smoking Cessation Referral:: No Individual Education/Counseling:: No Education Schedule Given:: Yes - Education Gave educational material for:: Tobacco triggers, Coronary artery disease, Risk factors, Sexuality, Medical compliance, Cardiac A&P, Angina signs & symptoms Psychosocial - Initial Assess - Target Goals Target Goals: Assess presence or absence of depression. Using a valid screening tool, maximizes coping skills. Positive support system - Stages of Change Stages of Change:: Contemplate - Psychosocial Test Tool Used:: HANDS Depression Questionnaire Total Mood Screening Score:: 1 Self-Efficacy Score:: 8 - Intervention PS - Interventions: Yes Attend Stress Management Classes, Yes Uses Stress Management Skills, No Referral to Mental Health, No Referral to [facility] Case Management, No Referral to Physician - Education Gave educational materials for:: Coping techniques, Signs & symptoms of depression, Stress management, Relaxation techniques - Assistive Devices Assistive Devices:: None Fall Risk Assessed:: Yes Patient Health Questionnaire Initial Assessment 1. Little interest or pleasure in doing things: Not at all 2. Feeling down, depressed, or hopeless: Not at all 3. Trouble falling or staying asleep, or sleeping too much: Not at all 4. Feeling tired or having little energy: Several days 5. Poor appetite or overeating: Not at all 6. Feeling bad about yourself -- or that you are a failure or have let yourself or your family down: Not at all 7. Trouble concentrating on things, such as reading the newspaper or watching television: Not at all 8. Moving or speaking so slowly that other people could have noticed. Or the opposite - being so fidgety or restless that you have been moving around a lot more than usual: Not at all 9. Thoughts that you would be better off , or of hurting yourself in some way: Not at all Total Score: 1 WILLIAM-Q SV Test - Statements CAD is a disease of the arteries in the heart: False Examples of risk factors for heart disease: True Angina is chest pain or discomfort: True The benefits of resistance training include: True Eating more meat and dairy products: False Anti-platelet medications such as aspirin are important: True The only effective way to manage stress: False An exercise warm-up slowly increases heart rate: True Prepared, processed foods usually have high sodium: True Depression is common after a heart attack: True The statin medications lower cholesterol: True To control blood pressure, lower the amount of sodium: True If someone gets chest discomfort during walking: False Transfats are partially hydrogenated vegetable oils: True Sleep apnea that is not treated increases the risk: False To control cholesterol, one should become a vegetarian: False Someone knows if he/she is exercising at the right level: False Diabetes cannot be prevented with exercise & health eating: True Stress is a large risk for heart attack: True A diet that can help lower blood pressure is rich in: True - Total Score Total Correct Responses: 18 Self-Efficacy Initial Assessment We would like to know how confident you are in doing certain activities. Please select your confidence level for:: Select your confidence level for the following using the scale 1-10 where 1 is not at all confident and 10 is totally confident. Your score is the average of all 6 responses. Fatigue: How confident are you that you can keep the fatigue caused by your disease from interfering with the things you want to do? Select Number: 8 Physical Discomfort or Pain: How confident are you that you can keep the physical discomfort or pain of your disease from interfering with the things you want to do? Select Number: 8 Emotional Distress: How confident are you that you can keep the emotional distress caused by your disease from interfering with the things you want to do? Select Number: 8 Other Symptoms or Health Problems: How confident are you that you can keep other symptoms or health problems from interfering with the things you want to do? Select Number: 8 Different Tasks and Activities: How confident are you that you can do the different tasks and activities needed to manage your health condition so as to reduce your need to see a doctor? Select Number: 8 Medication: How confident are you that you can do things other than just taking medication to reduce how much your illness affects your everyday life? Select Number: 10 Total Score:: 8 Nutrition Survey - Nutrition Survey Instructions Scoring Instructions: Scoring is as follows: Yes = 1 points. No = 0 point. Patient score that is >/=12 is considered to be at potential nutritional risk and could benefit from a referral to a registered dietitian. - Nutrition Survey Initial Have you lost >10 lbs over the past 2 months without trying?: No Are you following a special diet at home for diabetes, low fat, or low salt?: No Are you interested in meeting with a dietitian for help understanding your diet?: No Do you eat less than 3 meals a day?: No Do you eat fatty meats (roberts, sausage, ribs, etc), fried foods, desserts, large amounts of salad dressings, margarine, butter, or cheese most days?: No Do you have food allergies? [Enter types in comment field]: No Do you eat in restaurants more than 3 times a week?: No Do you season food with salt, seasoning salt, or garlic salt?: No Do you used canned, boxed, frozen meals, or soups, seasoning packets?: No Total Score:: 0
[2017-12-20 11:27] VITALS: BP 120/72
== END ==
PROVIDERS: Family Provider Family Medicine Geriatric Medicine; PCP Family Medicine Geriatric Medicine; Visit Provider Internal Medicine Cardiovascular Disease
DX: Z95.9 Presence of cardiac and vascular implant and graft, unspecified (principal); I25.2 Old myocardial infarction; F17.200 Nicotine dependence, unspecified, uncomplicated

== ENCOUNTER 2018-01-05 09:15 | Outpatient (RCR) | payer MEDICARE, OTHER, SELFPAY ==
--- NOTE | 2017-12-29 14:13 | PCM.CR.ITP ---
General Information - General Information Admitting Diagnosis: S/P coronary stent placement - Education/Goals Barriers to Learning: Hearing Impairment Cardiac Rehabilitation Goals: 1. Maintain the individual as the primary focus of care. 2. To improve the patient's quality of life. 3. Identification of cardiac risk factors and provide cardiac risk factor management. 4. Enhance the psychosocial status of the patient. 5. Reconditioning enough to allow the patient to resume customary activities. 6. Control symptoms of cardiac disease Scale for measuring improvement of personal goals: Enter appropriate number in Comments. 2 = Unchanged. 3 = Slightly Better. 4 = Moderate Improvement. 5 = Met my Goal Personal Goals: 30-day Re-assessment: Quit smoking (participate in smoking cessation, Improve energy level, Improve knowledge of cardiac disease, Improve muscle strength and endurance Exercise - 30-day Assessment - Visit Date of Eval: 12/29/17 Session #:: 2 - 100% compliance - Stages of Change Stages of Change:: Action - Exercise Prescription Mode:: Treadmill, Rower, Airdyne, NuStep Frequency (x/week): 3 Duration:: 30 METs - Progression: 0.5-1 MET as tolerated: 3.5 Target Heart Rate:: 114-121 104 max hr - Hypertension Resting Blood Pressure:: 128/80 Peak Exercise Blood Pressure:: 160/88 Medication Changes:: No - Intervention Home Exercise/Activity Goal:: Sitting Time <3 hrs/day - Education Goals:: Warm-up, RPE AMBROSE Scale, S/S, Safe Exercise, Self-Monitoring - Exercise Program Goals Exercise Program Goals: Aerobic Activity >30 min, B/P <130/80 Nutrition - 30-Day Assessment - Program Goals Nutrition Program Goals: LDL <70. Total Cholesterol <200. HDL >45. Triglycerides <150. HgbA1C <7%. BMI <25 - Visit Date of Eval: 12/29/17 - Stages of Change Stages of Change:: Action - Lipids Has the patient seen the dietitian?: No - Diabetes Diabetes:: No - Weight Management Weight:: 105.914 kg - Intervention Referral to dietitian:: No Referral to Diabetic Clinic:: No Will attend diet classes:: Yes - Education Attended class for:: Signs & symptoms of hypoglycemia, Signs & symptoms of hyperglycemia, Relate diabetes to coronary artery disease, Healthy eating Tobacco - Initial Assessment - Program Goals Tobacco Program Goals: Complete smoking cessation. Attend education classes. Improve Knowledge Test score - Learning Barriers Learning Barriers: Hearing Tobacco - 30-Day Assessment - Program Goals Tobacco Program Goals: Complete smoking cessation. Attend education classes. Improve Knowledge Test score - Stage of Change Stages of Change:: Action - Learning Barriers Learning Barriers: Participates in education - Family Support Do you have family support?: Yes - Tobacco Use Tobacco Use: Cigarettes Do you use smokeless tobacco?: No - Intervention Smoking Cessation Referral:: Yes Individual Education/Counseling:: Yes Education Schedule Given:: Yes - Education Attended class for:: Tobacco triggers, Coronary artery disease, Risk factors, Sexuality, Medical compliance, Cardiac A&P, Angina signs & symptoms Psychosocial - Initial Assess - Target Goals Target Goals: Assess presence or absence of depression. Using a valid screening tool, maximizes coping skills. Positive support system - Psychosocial Test Tool Used:: HANDS Depression Questionnaire - Assistive Devices Fall Risk Assessed:: Yes Psychosocial - 30-Day Assess - Target Goals Target Goals: Assess presence or absence of depression. Using a valid screening tool, maximizes coping skills. Positive support system - Stages of Change Stages of Change:: Action - Psychosocial Test Tool Used:: HANDS Depression Questionnaire - Intervention PS - Interventions: Yes Attend Stress Management Classes, Yes Uses Stress Management Skills, No Referral to Mental Health, No Referral to [facility] Case Management, No Referral to Physician - Education Attended classes for:: Coping techniques, Signs & symptoms of depression, Stress management, Relaxation techniques - Assistive Devices Assistive Devices:: None Fall Risk Assessed:: Yes Patient Health Questionnaire 30-Day Re-eval Assessment 1. Little interest or pleasure in doing things: Not at all 2. Feeling down, depressed, or hopeless: Not at all 3. Trouble falling or staying asleep, or sleeping too much: Not at all 4. Feeling tired or having little energy: Several days 5. Poor appetite or overeating: Not at all 6. Feeling bad about yourself -- or that you are a failure or have let yourself or your family down: Not at all 7. Trouble concentrating on things, such as reading the newspaper or watching television: Not at all 8. Moving or speaking so slowly that other people could have noticed. Or the opposite - being so fidgety or restless that you have been moving around a lot more than usual: Not at all 9. Thoughts that you would be better off , or of hurting yourself in some way: Not at all How difficult have these problems made it for you to do your work, take care of things at home, or get along with other people?: Not difficult at all Total Score: 1 Self-Efficacy 30-Day Re-eval Assessment We would like to know how confident you are in doing certain activities. Please select your confidence level for:: Select your confidence level for the following using the scale 1-10 where 1 is not at all confident and 10 is totally confident. Your score is the average of all 6 responses. Fatigue: How confident are you that you can keep the fatigue caused by your disease from interfering with the things you want to do? Select Number: 8 Physical Discomfort or Pain: How confident are you that you can keep the physical discomfort or pain of your disease from interfering with the things you want to do? Select Number: 8 Emotional Distress: How confident are you that you can keep the emotional distress caused by your disease from interfering with the things you want to do? Select Number: 8 Other Symptoms or Health Problems: How confident are you that you can keep other symptoms or health problems from interfering with the things you want to do? Select Number: 8 Different Tasks and Activities: How confident are you that you can do the different tasks and activities needed to manage your health condition so as to reduce your need to see a doctor? Select Number: 8 Medication: How confident are you that you can do things other than just taking medication to reduce how much your illness affects your everyday life? Select Number: 10 Total Score:: 8
[2017-12-29 14:19] VITALS: BP 128/80; BP 160/88
== END 2018-01-06 23:59 ==
LOC: CR 09:15
PROVIDERS: Family Provider Family Medicine Geriatric Medicine; PCP Family Medicine Geriatric Medicine; Visit Provider Internal Medicine Cardiovascular Disease
DX: I21.3 ST elevation (STEMI) myocardial infarction of unspecified site (principal); Z95.9 Presence of cardiac and vascular implant and graft, unspecified
CPT/HCPCS: 93798

== ENCOUNTER 2018-02-05 09:15 | Outpatient (RCR) | payer MEDICARE, OTHER, SELFPAY ==
[2018-01-07 01:09] VITALS: BP 128/80; BP 160/88
--- NOTE | 2018-01-31 08:39 | PCM.CR.ITP ---
Exercise - 30-day Assessment - Visit Date of Eval: 01/31/18 Session #:: 12 - Stages of Change Stages of Change:: Action - Exercise Prescription Mode:: Treadmill, Rower, Airdyne Frequency (x/week): 3 Duration:: 30 METs - Progression: 0.5-1 MET as tolerated: 4.5 Target Heart Rate:: 114-121 Max HR 96 - Hypertension Resting Blood Pressure:: 120/72 Peak Exercise Blood Pressure:: 180/90 Medication Changes:: No - Intervention Home Exercise/Activity Goal:: Sitting Time <3 hrs/day - Education Goals:: Warm-up, RPE AMBROSE Scale, S/S, Safe Exercise, Self-Monitoring - Exercise Program Goals Exercise Program Goals: Aerobic Activity >30 min Nutrition - 30-Day Assessment - Program Goals Nutrition Program Goals: LDL <70. Total Cholesterol <200. HDL >45. Triglycerides <150. HgbA1C <7%. BMI <25 - Visit Date of Eval: 01/31/18 - Stages of Change Stages of Change:: Action - Lipids Has the patient seen the dietitian?: No - Diabetes Diabetes:: No - Weight Management Weight:: 232 lb - down 1.5# - Intervention Referral to dietitian:: No Referral to Diabetic Clinic:: No Will attend diet classes:: Yes - Education Attended class for:: Healthy eating Tobacco - Initial Assessment - Program Goals Tobacco Program Goals: Complete smoking cessation. Attend education classes. Improve Knowledge Test score - Learning Barriers Learning Barriers: Hearing Tobacco - 30-Day Assessment - Program Goals Tobacco Program Goals: Complete smoking cessation. Attend education classes. Improve Knowledge Test score - Stage of Change Stages of Change:: Action - Learning Barriers Learning Barriers: Participates in education - Family Support Do you have family support?: Yes - Tobacco Use Tobacco Use: Non-smoker Do you use smokeless tobacco?: No - Intervention Education Schedule Given:: Yes - Education Attended class for:: Coronary artery disease, Risk factors, Sexuality, Medical compliance, Cardiac A&P, Angina signs & symptoms Psychosocial - 30-Day Assess - Target Goals Target Goals: Assess presence or absence of depression. Using a valid screening tool, maximizes coping skills. Positive support system - Stages of Change Stages of Change:: Action - Psychosocial Test Tool Used:: HANDS Depression Questionnaire - Intervention PS - Interventions: Yes Attend Stress Management Classes, No Referral to Mental Health, No Referral to [facility] Case Management, No Referral to Physician, No Uses Stress Management Skills - Education Attended classes for:: Coping techniques, Signs & symptoms of depression, Stress management, Relaxation techniques - Patient/Program Goal Preventative Medication(s):: Aspirin, Clopidogrel, Beta svitlana - Assistive Devices Assistive Devices:: None Fall Risk Assessed:: Yes Patient Health Questionnaire 30-Day Re-eval Assessment 1. Little interest or pleasure in doing things: Not at all 2. Feeling down, depressed, or hopeless: Not at all 3. Trouble falling or staying asleep, or sleeping too much: Not at all 4. Feeling tired or having little energy: Several days 5. Poor appetite or overeating: Not at all 6. Feeling bad about yourself -- or that you are a failure or have let yourself or your family down: Not at all 7. Trouble concentrating on things, such as reading the newspaper or watching television: Not at all 8. Moving or speaking so slowly that other people could have noticed. Or the opposite - being so fidgety or restless that you have been moving around a lot more than usual: Not at all 9. Thoughts that you would be better off , or of hurting yourself in some way: Not at all How difficult have these problems made it for you to do your work, take care of things at home, or get along with other people?: Not difficult at all Total Score: 1 Self-Efficacy 30-Day Re-eval Assessment We would like to know how confident you are in doing certain activities. Please select your confidence level for:: Select your confidence level for the following using the scale 1-10 where 1 is not at all confident and 10 is totally confident. Your score is the average of all 6 responses. Fatigue: How confident are you that you can keep the fatigue caused by your disease from interfering with the things you want to do? Select Number: 9 Physical Discomfort or Pain: How confident are you that you can keep the physical discomfort or pain of your disease from interfering with the things you want to do? Select Number: 9 Emotional Distress: How confident are you that you can keep the emotional distress caused by your disease from interfering with the things you want to do? Select Number: 9 Other Symptoms or Health Problems: How confident are you that you can keep other symptoms or health problems from interfering with the things you want to do? Select Number: 9 Different Tasks and Activities: How confident are you that you can do the different tasks and activities needed to manage your health condition so as to reduce your need to see a doctor? Select Number: 9 Medication: How confident are you that you can do things other than just taking medication to reduce how much your illness affects your everyday life? Select Number: 10 Total Score:: 9
[2018-01-31 08:46] VITALS: BP 120/72; BP 180/90
== END 2018-02-06 23:59 ==
LOC: CR 09:15
PROVIDERS: Family Provider Family Medicine Geriatric Medicine; PCP Family Medicine Geriatric Medicine; Visit Provider Internal Medicine Cardiovascular Disease
DX: I21.3 ST elevation (STEMI) myocardial infarction of unspecified site (principal); Z95.9 Presence of cardiac and vascular implant and graft, unspecified
CPT/HCPCS: 93798

== ENCOUNTER → 2018-02-22 06:32 | Outpatient (CLI) | payer MEDICARE, OTHER, SELFPAY ==
[2018-02-22 09:25] LABS: AST(SGOT) 22 U/L (15-37); Alanine Aminotransfer ALT/SGPT 37 U/L (16-61); Alkaline Phosphatase 69 U/L (45-117); Bilirubin, Direct 0.16 mg/dL (0.00-0.30); Cholesterol 83 mg/dL (200); Globulin 3.7 g/dL (2.2-4.2); High Density Lipoprotein 31 mg/dL; Protein, Total 7.7 g/dL (6.4-8.2); Triglycerides 103 mg/dL; Very Low Density Lipoprotein 21 mg/dL (5-40)
== END ==
PROVIDERS: Family Provider Family Medicine Geriatric Medicine; PCP Family Medicine Geriatric Medicine; Visit Provider Internal Medicine Cardiovascular Disease
DX: E78.00 Pure hypercholesterolemia, unspecified (principal)
CPT/HCPCS: 36415; 80061; 80076

== ENCOUNTER 2018-03-09 09:15 | Outpatient (RCR) | payer MEDICARE, OTHER, SELFPAY ==
[2018-02-07 01:05] VITALS: BP 120/72; BP 180/90
--- NOTE | 2018-03-02 13:22 | PCM.CR.ITP ---
General Information - General Information Admitting Diagnosis: STEMI s/p cornary artery stenting - Education/Goals Cardiac Rehabilitation Goals: 1. Maintain the individual as the primary focus of care. 2. To improve the patient's quality of life. 3. Identification of cardiac risk factors and provide cardiac risk factor management. 4. Enhance the psychosocial status of the patient. 5. Reconditioning enough to allow the patient to resume customary activities. 6. Control symptoms of cardiac disease Scale for measuring improvement of personal goals: Enter appropriate number in Comments. 2 = Unchanged. 3 = Slightly Better. 4 = Moderate Improvement. 5 = Met my Goal Exercise - 90-Day Assessment - Visit Date of Eval: 03/02/18 Session #:: 24 - Stages of Change Stages of Change:: Action - Exercise Prescription Mode:: Rower, Airdyne, NuStep Frequency (x/week): 3 Duration:: 30 METs: 5 Target Heart Rate:: 114-121 Max HR 95 - Hypertension Resting Blood Pressure:: 122/64 Peak Exercise Blood Pressure:: 152/80 - Intervention Home Exercise/Activity Goal:: Sitting Time <3 hrs/day - Education Goals:: Warm-up, RPE AMBROSE Scale, S/S, Safe Exercise, Self-Monitoring - Exercise Program Goals Exercise Program Goals: Aerobic Activity >30 min, B/P <130/80 Nutrition - 90-Day Assessment - Program Goals Nutrition Program Goals: LDL <70. Total Cholesterol <200. HDL >45. Triglycerides <150. HgbA1C <7%. BMI <25 - Visit Date of Eval: 03/02/18 - Stages of Change Stages of Change:: Action - Lipids Has the patient seen the dietitian?: No - Diabetes Diabetes:: No - Weight Management Weight:: 105.687 kg - Intervention Referral to dietitian:: No Referral to Diabetic Clinic:: No Will attend diet classes:: Yes - Education Attended class for:: Signs & symptoms of hypoglycemia, Signs & symptoms of hyperglycemia, Relate diabetes to coronary artery disease, Healthy eating Tobacco - Initial Assessment - Program Goals Tobacco Program Goals: Complete smoking cessation. Attend education classes. Improve Knowledge Test score - Learning Barriers Learning Barriers: Hearing Tobacco - 90-Day Assessment - Program Goals Tobacco Program Goals: Complete smoking cessation. Attend education classes. Improve Knowledge Test score - Stage of Change Stages of Change:: Action - Learning Barriers Learning Barriers: Participates in education - Family Support Do you have family support?: Yes - Tobacco Use Tobacco Use: Cigarettes - pt declines counseling. trying to stop on his own. Do you use smokeless tobacco?: No - Intervention Smoking Cessation Referral:: No Individual Education/Counseling:: No Education Schedule Given:: Yes - Education Attended class for:: Tobacco triggers, Coronary artery disease, Risk factors, Sexuality, Medical compliance, Cardiac A&P, Angina signs & symptoms Psychosocial - Initial Assess - Target Goals Target Goals: Assess presence or absence of depression. Using a valid screening tool, maximizes coping skills. Positive support system - Psychosocial Test Tool Used:: HANDS Depression Questionnaire - Assistive Devices Fall Risk Assessed:: Yes Psychosocial - 90-Day Assess - Target Goals Target Goals: Assess presence or absence of depression. Using a valid screening tool, maximizes coping skills. Positive support system - Stages of Change Stages of Change:: Action - Psychosocial Test Tool Used:: HANDS Depression Questionnaire - Intervention PS - Interventions: Yes Attend Stress Management Classes, Yes Uses Stress Management Skills, No Referral to Mental Health, No Referral to [facility] Case Management, No Referral to Physician - Education Attended classes for:: Coping techniques, Signs & symptoms of depression, Stress management, Relaxation techniques - Assistive Devices Assistive Devices:: None Fall Risk Assessed:: Yes Patient Health Questionnaire 90-Day Re-eval Assessment 1. Little interest or pleasure in doing things: Not at all 2. Feeling down, depressed, or hopeless: Not at all 3. Trouble falling or staying asleep, or sleeping too much: Not at all 4. Feeling tired or having little energy: Several days 5. Poor appetite or overeating: Not at all 6. Feeling bad about yourself -- or that you are a failure or have let yourself or your family down: Not at all 7. Trouble concentrating on things, such as reading the newspaper or watching television: Not at all 8. Moving or speaking so slowly that other people could have noticed. Or the opposite - being so fidgety or restless that you have been moving around a lot more than usual: Not at all 9. Thoughts that you would be better off , or of hurting yourself in some way: Not at all How difficult have these problems made it for you to do your work, take care of things at home, or get along with other people?: Not difficult at all Total Score: 1 Self-Efficacy 90-Day Re-eval Assessment We would like to know how confident you are in doing certain activities. Please select your confidence level for:: Select your confidence level for the following using the scale 1-10 where 1 is not at all confident and 10 is totally confident. Your score is the average of all 6 responses. Fatigue: How confident are you that you can keep the fatigue caused by your disease from interfering with the things you want to do? Select Number: 10 Physical Discomfort or Pain: How confident are you that you can keep the physical discomfort or pain of your disease from interfering with the things you want to do? Select Number: 10 Emotional Distress: How confident are you that you can keep the emotional distress caused by your disease from interfering with the things you want to do? Select Number: 10 Other Symptoms or Health Problems: How confident are you that you can keep other symptoms or health problems from interfering with the things you want to do? Select Number: 10 Different Tasks and Activities: How confident are you that you can do the different tasks and activities needed to manage your health condition so as to reduce your need to see a doctor? Select Number: 10 Medication: How confident are you that you can do things other than just taking medication to reduce how much your illness affects your everyday life? Select Number: 10 Total Score:: 10
[2018-03-02 13:29] VITALS: BP 122/64; BP 152/80
== END 2018-03-09 23:59 ==
LOC: CR 09:15
PROVIDERS: Family Provider Family Medicine Geriatric Medicine; PCP Family Medicine Geriatric Medicine; Visit Provider Internal Medicine Cardiovascular Disease
DX: I21.3 ST elevation (STEMI) myocardial infarction of unspecified site (principal); Z95.9 Presence of cardiac and vascular implant and graft, unspecified
CPT/HCPCS: 93798

== ENCOUNTER 2018-03-25 14:26 | Observation (INO) | payer MEDICARE, OTHER, SELFPAY ==
[2018-03-25] VITALS (14 sets, daily range): BP systolic 96–170; BP diastolic 60–108; PULSE 68–98; RESP 14–19; TEMP 36.3–36.8; O2SAT 93–98; BMI 32.0; BMI 28.7
--- NOTE | 2018-03-25 15:12 | EKG12_ITS ---
Test Reason : Blood Pressure : / mmHG Vent. Rate : 091 BPM Atrial Rate : 091 BPM P-R Int : 152 ms QRS Dur : 110 ms QT Int : 380 ms P-R-T Axes : 065 006 062 degrees QTc Int : 467 ms Normal sinus rhythm with occasional PVCs Low voltage QRS (limb leads) Confirmed by ANDREA WILSON, PAOLA ([id number]), editor farm journal GAY JEREZ ([id number]) on 03/28/2018 2:28:13 PM Referred By: FAY Confirmed By:PAOLA MENDEZ MD
--- NOTE | 2018-03-25 15:13 | RAD_ITS ---
STUDY: X-RAY - LEFT SHOULDER REASON FOR EXAM: Male, 67 years old. Left shoulder pain. TECHNIQUE: 4 view(s) of the shoulder. COMPARISON: None. FINDINGS: There is no fracture or dislocation. Mild osteoarthrosis of the glenohumeral joint is noted, with humeral spurring. Degenerative cystic changes of the humeral head are noted superiorly. Demonstrated humerus is otherwise unremarkable. Acromioclavicular joint is unremarkable. Soft tissues and bony structures are otherwise unremarkable. RAD/Shoulder min 2 Views IMPRESSION: 1. No fracture or dislocation. 2. Mild osteoarthrosis of the glenohumeral joint. Electronically Signed: Citlaly Melton MD at 16:40 EDT Tel , Service support ,
--- NOTE | 2018-03-25 15:14 | ED.DCSUM_ITS ---
- ER Visit Summary Date of Service: 03/25/18 Chief Complaint: left arm pain History of Present Illness: The patient is a 67 M history of myocardial infarction in October that presented as bilateral arm pain who presents today for 3 hours of left arm pain. He states the pain feels similar to his prior myocardial infarction. He was at rest watching a football game when he began having aching from his left shoulder down to the elbow in the anterior region. He denies any injury. He has been moving the arm around trying to relieve the pain without any improvement. Pain is somewhat exacerbated with motion but no specific movement that exacerbates or relieves it. It is also not relieved with rest. Patient took Tylenol without relief. He denies chest pain, jaw pain , neck pain, back pain, abdominal pain, nausea or vomiting, shortness of breath , cough or congestion, fever. He is a smoker, history of coronary artery disease status post stents, hypertension, hyperlipidemia. Patient takes daily Brilinta and aspirin and took one baby aspirin today. Physical Examination: Vital signs: afebrile, hemodynamically stable, no hypoxia on room air General: well nourished, well developed, in no distress Skin: warm, mildly moist, no rash, no pallor HEENT: normocephalic and atraumatic; PERRL, EOMI, moist mucous membranes Cardiovascular: regular rate and rhythm without murmurs, no peripheral edema, 2 + pulses all distal extremities Respiratory: No increased work of breathing, rhonchi noted in the left kirkpatrick, change with cough Abdominal: Abdomen is soft, nontender with normoactive bowel sounds, no guarding or rebound, no masses MSK: Moves all extremities, no deformities, normal strength, no specific point tenderness in the left shoulder or arm, full active and passive range of motion without change in pain, distal strength and motor function intact, radial pulse 2+ Neuro: Awake and alert, oriented ?4. No facial droop, sensation and motor function intact and symmetric Test Results: Clinical Impression(s) from Imaging Studies Shoulder X-Ray 03/25/18 15:13 IMPRESSION: 1. No fracture or dislocation. 2. Mild osteoarthrosis of the glenohumeral joint. Electronically Signed: Citlaly Melton MD at 16:40 EDT Tel , Service support , Chest X-Ray 03/25/18 16:00 IMPRESSION: No acute process. Electronically Signed: Citlaly Melton MD at 16:41 EDT Tel , Service support , Abnormal Lab Results 03/25/18 03/25/18 03/25/18 15:42 15:42 15:42 WBC 8.1 RBC 4.47 L Hgb 15.4 Hct 43.4 MCV 97.1 H MCH 34.5 H MCHC 35.5 RDW 13.4 RDW Differential 47.2 H Plt Count 243 MPV 9.6 Immature Gran % (Auto) 0.400 Neut % (Auto) 65.3 Lymph % (Auto) 19.8 Pickett % (Auto) 7.0 Eos % (Auto) 6.5 H Baso % (Auto) 1.0 Absolute Neuts (auto) 5.3 Absolute Lymphs (auto) 1.61 Total Counted Not Reportable PT 12.8 INR 1.0 APTT 32.8 Sodium 140 Potassium 3.5 Chloride 104 Carbon Dioxide 27.0 Anion Gap 9 BUN 15 Creatinine 1.05 Estim Creat Clear Calc 72.88 Est GFR (MDRD) Af Amer 90 Est GFR (MDRD) Non-Af 74 BUN/Creatinine Ratio 14.3 Glucose 165 H Calcium 8.8 Troponin I < 0.015 Medications Given Sodium Chloride () 1,000 mls @ 250 mls/hr IV .Q4H EDILBERTO Last Admin: 03/25/18 15:41 Dose: 250 mls/hr Discontinued Medications Aspirin (Aspirin, Baby) 243 mg PO X1 STA Stop: 03/25/18 15:13 Last Admin: 03/25/18 15:41 Dose: 243 mg Nitroglycerin (Nitrostat) 0.4 mg SUBLINGUAL Q5M EDILBERTO Stop: 03/25/18 15:26 Last Admin: 03/25/18 15:51 Dose: Not Given Admin: 03/25/18 15:49 Dose: 0.4 mg Admin: 03/25/18 15:44 Dose: 0.4 mg Emergency Department Course and Treatment: Patient's presentation is concerning for atypical angina given his prior history of STEMI presenting with bilateral arm pain similar to his left arm pain today. EKG showed no ischemic changes. Initial troponin negative. Chest x-ray showed no acute process. X-ray of the left shoulder showed no dislocation or other occult injury, only showed degenerative changes. Patient received 3 baby aspirin, and he had complete resolution of his left arm pain after 2 nitro. Patient had no further discomfort while in the emergency department. He will be admitted as observation status for further chest pain rule out. Patient discussed with the hospitalist for admission. Treatment Plan: [] Disposition: [] Impression: Left arm pain, atypical angina This note was generated with [employer] dictation software. It may contain incorrect words, spelling, and punctuation that were not noted in review of the chart prior to signing ED Disposition - Plan for ED Patient: Chief Complaint: Chest Pain Referrals: Jarad Mcwilliams Chi, MD [Primary Care Provider] -
[2018-03-25] MEDS: Aspirin 81 MG TAB.CHEW 243 MG PO (15:41)
[2018-03-25] MEDS: 0.9% Normal Saline 1,000 ML 250 ML IV (15:41)
[2018-03-25 15:53] LABS: Absolute Lymphocyte Count 1.61 X10^3/ul (0.83-4.51); Absolute Neutrophil Count 5.3 X10^3/uL (2.0-7.7); Basophil# 0.08 X10^3/uL; Eosinophil# 0.53 X10^3/uL; Eosinophils% 6.5 % (0-5); Hematocrit 43.4 % (40-54); Hemoglobin 15.4 g/dl (13.0-16.5); Lymphocyte # 1.61 X10^3/ul (4.0); Lymphocyte % 19.8 % (19-41); Mean Corp Hgb Conc 35.5 g/gl (32-36); Mean Corpuscular Hgb 34.5 pg (27.0-32.0); Mean Corpuscular Volume 97.1 fL (80-94); Mean Platelet Vol. 9.6 fl (6.2-12.0); Monocyte# 0.57 X10^3/uL; Neutrophil % 65.3 % (47-70); POSITIVE COUNT NO; POSITIVE DIFFERENTIAL NO; POSITIVE MORPHOLOGY NO; Platelet Count 243 K/mm3 (150-450); RBC Distribution Width CV 13.4 % (11.6-14.6); RBC Distribution Width SD 47.2 fl (35.1-43.9); Red Blood Count 4.47 M/mm3 (4.6-6.2); White Blood Count 8.1 K/mm3 (4.4-11.0)
[2018-03-25 15:58] LABS: Prothrombin Time (Protime)PT. 12.8 SECONDS (11.7-14.9)
[2018-03-25 15:59] LABS: Partial Thromboplast Time 32.8 Seconds (24.1-36.2)
--- NOTE | 2018-03-25 16:00 | RAD_ITS ---
STUDY: X-RAY CHEST REASON FOR EXAM: Male, 67 years old. Left shoulder pain. TECHNIQUE: PA and lateral chest. COMPARISON: 10/29/2017. FINDINGS: The lungs are clear and expanded. There is no demonstrated pleural abnormality. Normal size heart. Normal mediastinum and schuyler. Normal visualized pulmonary arteries. Normal visualized aortic arch and descending thoracic aorta. There is a mild thoracolumbar levoscoliosis. Mild degenerative changes of the left shoulder. Soft tissues and bony structures are otherwise unremarkable. RAD/Chest PA and Lateral IMPRESSION: No acute process. Electronically Signed: Citlaly Melton MD at 16:41 EDT Tel , Service support ,
[2018-03-25 16:07] LABS: Anion Gap 9 (5-15); BUN 15 mg/dL (7-18); BUN/Creat Ratio 14.3 RATIO (10-20); Calcium,Total 8.8 mg/dL (8.5-10.1); Chloride 104 mmol/L (98-107); Creatinine, Serum 1.05 mg/dL (0.70-1.30); EST Glomerular Filtration Rate 74 mL/min (>60); Est Glom Filt Rate - Afr Amer 90 mL/min (>60); Estimated Creatinine Clearance 72.88 ml/min; Glucose 165 mg/dL (74-106); Potassium 3.5 mmol/L (3.5-5.1); Sodium Level 140 mmol/L (136-145)
--- NOTE | 2018-03-25 17:23 | PCM.HP.STD ---
Problem List (1) HLD (hyperlipidemia) Status: Chronic Qualifiers: (2) S/P angioplasty with stent Status: Chronic Comment: PTCA/JAJA of the distal RCA and mid RCA 10/29/2017; (3) HTN (hypertension) Status: Chronic Qualifiers: (4) Tobacco dependence due to cigarettes Status: Chronic (5) STEMI (ST elevation myocardial infarction) Status: Resolved Qualifiers: (6) Stenosis of left subclavian artery Status: Chronic (7) [place] (hard of hearing) Status: Chronic History of Present Illness Date of Admission: 03/25/18 Chief Complaint: Left arm pain. The patient is a 67 year old M who presents emergency room with left arm pain which began this morning. He describes being unable to get comfortable due to left arm pain. Denies severe pain. Patient states with prior STEMI October 2017 he had bilateral arm pain. He notes similar pain today which caused him concern. He denies associated symptoms. Denies chest pain, shortness of breath, dizziness, lightheadedness, palpitations. States he overall feels well. States he is currently undergoing cardiac rehab and has been asymptomatic during exercise. Patient had PTCA/JAJA of the distal RCA and mid RCA October 2017. He follows with Dr. Torres. He is continuing to smoke 10-12 cigarettes per day. He notes this is a significant reduction as he used to smoke a pack and a half per day. His other past medical history includes hypertension, hyperlipidemia, stenosis of the left subclavian artery, chronic diastolic dysfunction. Past Medical History Past Medical History (Chronic Problems): Chronic Problems (Last Reviewed 11/16/17 @ 13:24 by Fish Torres MD) HLD (hyperlipidemia) (Chronic) S/P angioplasty with stent (Chronic) PTCA/JAJA of the distal RCA and mid RCA 10/29/2017; HTN (hypertension) (Chronic) Tobacco dependence due to cigarettes (Chronic) Stenosis of left subclavian artery (Chronic) [place] (hard of hearing) (Chronic) Medical History: Medical History (Last Reviewed 11/16/17 @ 13:24 by Fish Torres MD) Hypokalemia (Chronic) E87.6 HLD (hyperlipidemia) (Chronic) E78.5 HTN (hypertension) (Chronic) I10 Tobacco dependence due to cigarettes (Chronic) F17.210 Stenosis of left subclavian artery (Chronic) I77.1 [place] (hard of hearing) (Chronic) H91.90 GERD (gastroesophageal reflux disease) K21.9 Allergies No Known Allergies Allergy (Verified 11/16/17 12:57) Home Medications: Ambulatory Orders Medication Instructions Recorded Aspirin E.C. [Ecotrin] 81 mg PO DAILY@0800 #30 tab 10/30/17 lisinopril 20 1 tab PO BID 90 Days #180 tab 11/16/17 mg-hydrochlorothiazide 12.5 mg tablet metoprolol tartrate 50 mg tablet 50 mg PO BID 90 Days #180 tab 11/16/17 ticagrelor 90 mg tablet 90 mg PO BID #180 tab 11/27/17 Surgical History: Surgical History (Last Reviewed 03/25/18 @ 17:28 by ARMIN Braden) S/P angioplasty with stent (Chronic) Z95.9 PTCA/JAJA of the distal RCA and mid RCA 10/29/2017; History of herniorrhaphy Z98.890, Z87.19 Left inguinal Hx of elbow surgery Z98.890 Surgical History: herniorrhaphy - Left inguinal, - - elbow surgery Psychiatric History: No pertinent psych hx Lives: Spouse/ Significant Other Smoking Status: Current every day smoker Tobacco Use: Cigarettes - 10-12 per day Alcohol: None Drugs: None - *Family History Maternal Family History: Family History (Last Reviewed 11/16/17 @ 13:24 by Fish Torres MD) Father Negative FH of ASCVD History Items: No pertinent history, - - no hx of CAD Paternal Family History: Family History (Last Reviewed 11/16/17 @ 13:24 by Fish Torres MD) Father Negative FH of ASCVD History Items: No pertinent history, - - no hx of CAD Review of Systems Constitutional: Denies: Chills, Fever, Weight Change HEENT: Denies: Head Aches, Sinus Congestion, Sinus Drainage Cardiovascular: Denies: Chest Pain, Edema, Heaviness, Light Headedness, Palpitations, Syncope Respiratory: Denies: Cough, Shortness of breath at rest, Sputum production Gastrointestinal: Denies: Abdominal Pain, Nausea, Vomiting Genitourinary: Denies: Dysuria Musculoskeletal: Reports: Arm Pain - Left Skin: Denies: Rash, Wounds Neurological: Denies: Numbness, Tingling, Focal weakness Psychiatric: Denies: Anxiety, Depression, Homicidal Ideations, Suicidal Ideations Hematologic/ Lymphatic: Denies: Easy Bruising, Easy Bleeding VTE Information - Inpt Only VTE Present on Admission: No VTE Mechan Device Prophylaxis: None VTE Pharm Prophylaxis ordered?: Yes - Physical Exam General: Alert, Oriented x3, Cooperative, No apparent distress HEENT: Atraumatic, PERRLA, EOMI, Normocephalic Neck: Supple, No JVD, Negative Carotid Bruits Lungs: Clear to auscultation, Normal air movement Cardiovascular: Regular rate, Regular Rhythm, Normal S1, Normal S2, No murmurs Abdomen: Bowel Sounds Present, Soft, Non Tender Extremities: No clubbing, No cyanosis, No edema, Capillary Refill Less than 3 Seconds Skin: No rashes, No breakdown Musculoskeletal: No Tenderness to Palpation of Joints or Extremities Neurological: Cranial nerves II-XII grossly intact, Neuro grossly intact Psych/Mental Status: Normal Affect, Appropriate Vital Signs Temp Pulse Resp BP Pulse Ox 97.4 F L 77 14 123/73 H 97 03/25/18 14:27 03/25/18 17:04 03/25/18 17:04 03/25/18 17:04 03/25/18 17:04 Oxygen Flow Rate (L/min) 4 Oxygen Delivery Method Room Air Weight: 235 lb 14.314 oz Body Mass Index (BMI) 32.0 Laboratory Tests Past 24 Hrs 03/25/18 03/25/18 03/25/18 15:42 15:42 15:42 WBC 8.1 RBC 4.47 L Hgb 15.4 Hct 43.4 MCV 97.1 H MCH 34.5 H MCHC 35.5 RDW 13.4 RDW Differential 47.2 H Plt Count 243 MPV 9.6 Immature Gran % (Auto) 0.400 Neut % (Auto) 65.3 Lymph % (Auto) 19.8 [place] % (Auto) 7.0 Eos % (Auto) 6.5 H Baso % (Auto) 1.0 Absolute Neuts (auto) 5.3 Absolute Lymphs (auto) 1.61 Total Counted Not Reportable PT 12.8 INR 1.0 APTT 32.8 Sodium 140 Potassium 3.5 Chloride 104 Carbon Dioxide 27.0 Anion Gap 9 BUN 15 Creatinine 1.05 Estim Creat Clear Calc 72.88 Est GFR (MDRD) Af Amer 90 Est GFR (MDRD) Non-Af 74 BUN/Creatinine Ratio 14.3 Glucose 165 H Calcium 8.8 Troponin I < 0.015 Assessment/Plan All Active Problems (Last Reviewed 11/16/17 @ 13:24 by Fish Torres MD) STEMI (ST elevation myocardial infarction) (Resolved) 1. Left arm pain in the context of previous STEMI/CAD requiring PTCA/JAJA of the distal RCA and mid RCA October 2017-EKG in ER without ST-T changes. Chest x-ray without acute process. X-ray of left shoulder without dislocation or acute injury. Trend enzymes. Repeat EKG in a.m. Continue aspirin, metoprolol, ticagrelor, lisinopril. Consult cardiology, patient follows with Dr. Torres. 2. Diastolic dysfunction-stable, continue home lisinopril and metoprolol regimen. Echocardiogram October 2017 showed EF 55%, stage II diastolic dysfunction, mild mitral valve insufficiency, mild tricuspid valve insufficiency. 3. Type 2 diabetes mellitus-hemoglobin A1c 6.8% October 2017. Repeat hemoglobin A1c. Discharged in October on metformin, does not appear to be taking? Accu-Cheks before meals at bedtime with sliding scale insulin. 4. Hypertension-stable, continue home lisinopril, metoprolol regimen. 5. Hyperlipidemia-continue statin. 6. Stenosis of the subclavian artery-patient states he has been evaluated as outpatient and no intervention recommended. 7. Tobacco dependence-encourage smoking cessation. Nicotine replacement patch if desired. 8. Obesity-encourage diet lifestyle medications. Nutrition consult. DVT prophylaxis-Lovenox subcu. This patient was seen by ARMIN Braden under the supervision of Dr. Harrison.
--- NOTE | 2018-03-25 17:28 | HP.PCM_ITS ---
Problem List (1) HLD (hyperlipidemia) Status: Chronic Qualifiers: (2) S/P angioplasty with stent Status: Chronic Comment: PTCA/JAJA of the distal RCA and mid RCA 10/29/2017; (3) HTN (hypertension) Status: Chronic Qualifiers: (4) Tobacco dependence due to cigarettes Status: Chronic (5) STEMI (ST elevation myocardial infarction) Status: Resolved Qualifiers: (6) Stenosis of left subclavian artery Status: Chronic (7) [place] (hard of hearing) Status: Chronic History of Present Illness Date of Admission: 03/25/18 Chief Complaint: Left arm pain. The patient is a 67 year old M who presents emergency room with left arm pain which began this morning. He describes being unable to get comfortable due to left arm pain. Denies severe pain. Patient states with prior STEMI October 2017 he had bilateral arm pain. He notes similar pain today which caused him concern. He denies associated symptoms. Denies chest pain, shortness of breath , dizziness, lightheadedness, palpitations. States he overall feels well. States he is currently undergoing cardiac rehab and has been asymptomatic during exercise. Patient had PTCA/JAJA of the distal RCA and mid RCA October 2017. He follows with Dr. Torres. He is continuing to smoke 10-12 cigarettes per day. He notes this is a significant reduction as he used to smoke a pack and a half per day. His other past medical history includes hypertension, hyperlipidemia, stenosis of the left subclavian artery, chronic diastolic dysfunction. Past Medical History Past Medical History (Chronic Problems): Chronic Problems (Last Reviewed 11/16/17 @ 13:24 by Fish Torres MD) HLD (hyperlipidemia) (Chronic) S/P angioplasty with stent (Chronic) PTCA/JAJA of the distal RCA and mid RCA 10/29/2017; HTN (hypertension) (Chronic) Tobacco dependence due to cigarettes (Chronic) Stenosis of left subclavian artery (Chronic) [place] (hard of hearing) (Chronic) Medical History: Medical History (Last Reviewed 11/16/17 @ 13:24 by Fish Torres MD) Hypokalemia (Chronic) E87.6 HLD (hyperlipidemia) (Chronic) E78.5 HTN (hypertension) (Chronic) I10 Tobacco dependence due to cigarettes (Chronic) F17.210 Stenosis of left subclavian artery (Chronic) I77.1 [place] (hard of hearing) (Chronic) H91.90 GERD (gastroesophageal reflux disease) K21.9 Allergies No Known Allergies Allergy (Verified 11/16/17 12:57) Home Medications: Ambulatory Orders Medication Instructions Recorded Aspirin E.C. [Ecotrin] 81 mg PO DAILY@0800 #30 tab 10/30/17 lisinopril 20 1 tab PO BID 90 Days #180 tab 11/16/17 mg-hydrochlorothiazide 12.5 mg tablet metoprolol tartrate 50 mg tablet 50 mg PO BID 90 Days #180 tab 11/16/17 ticagrelor 90 mg tablet 90 mg PO BID #180 tab 11/27/17 Surgical History: Surgical History (Last Reviewed 03/25/18 @ 17:28 by ARMIN Braden) S/P angioplasty with stent (Chronic) Z95.9 PTCA/JAJA of the distal RCA and mid RCA 10/29/2017; History of herniorrhaphy Z98.890, Z87.19 Left inguinal Hx of elbow surgery Z98.890 Surgical History: herniorrhaphy - Left inguinal, - - elbow surgery Psychiatric History: No pertinent psych hx Lives: Spouse/ Significant Other Smoking Status: Current every day smoker Tobacco Use: Cigarettes - 10-12 per day Alcohol: None Drugs: None - *Family History Maternal Family History: Family History (Last Reviewed 11/16/17 @ 13:24 by Fish Torres MD) Father Negative FH of ASCVD History Items: No pertinent history, - - no hx of CAD Paternal Family History: Family History (Last Reviewed 11/16/17 @ 13:24 by Fish Torres MD) Father Negative FH of ASCVD History Items: No pertinent history, - - no hx of CAD Review of Systems Constitutional: Denies: Chills, Fever, Weight Change HEENT: Denies: Head Aches, Sinus Congestion, Sinus Drainage Cardiovascular: Denies: Chest Pain, Edema, Heaviness, Light Headedness, Palpitations, Syncope Respiratory: Denies: Cough, Shortness of breath at rest, Sputum production Gastrointestinal: Denies: Abdominal Pain, Nausea, Vomiting Genitourinary: Denies: Dysuria Musculoskeletal: Reports: Arm Pain - Left Skin: Denies: Rash, Wounds Neurological: Denies: Numbness, Tingling, Focal weakness Psychiatric: Denies: Anxiety, Depression, Homicidal Ideations, Suicidal Ideations Hematologic/ Lymphatic: Denies: Easy Bruising, Easy Bleeding VTE Information - Inpt Only VTE Present on Admission: No VTE Mechan Device Prophylaxis: None VTE Pharm Prophylaxis ordered?: Yes - Physical Exam General: Alert, Oriented x3, Cooperative, No apparent distress HEENT: Atraumatic, PERRLA, EOMI, Normocephalic Neck: Supple, No JVD, Negative Carotid Bruits Lungs: Clear to auscultation, Normal air movement Cardiovascular: Regular rate, Regular Rhythm, Normal S1, Normal S2, No murmurs Abdomen: Bowel Sounds Present, Soft, Non Tender Extremities: No clubbing, No cyanosis, No edema, Capillary Refill Less than 3 Seconds Skin: No rashes, No breakdown Musculoskeletal: No Tenderness to Palpation of Joints or Extremities Neurological: Cranial nerves II-XII grossly intact, Neuro grossly intact Psych/Mental Status: Normal Affect, Appropriate Vital Signs Temp Pulse Resp BP Pulse Ox 97.4 F L 77 14 123/73 H 97 03/25/18 14:27 03/25/18 17:04 03/25/18 17:04 03/25/18 17:04 03/25/18 17:04 Oxygen Flow Rate (L/min) 4 Oxygen Delivery Method Room Air Weight: 235 lb 14.314 oz Body Mass Index (BMI) 32.0 Laboratory Tests Past 24 Hrs 03/25/18 03/25/18 03/25/18 15:42 15:42 15:42 WBC 8.1 RBC 4.47 L Hgb 15.4 Hct 43.4 MCV 97.1 H MCH 34.5 H MCHC 35.5 RDW 13.4 RDW Differential 47.2 H Plt Count 243 MPV 9.6 Immature Gran % (Auto) 0.400 Neut % (Auto) 65.3 Lymph % (Auto) 19.8 [place] % (Auto) 7.0 Eos % (Auto) 6.5 H Baso % (Auto) 1.0 Absolute Neuts (auto) 5.3 Absolute Lymphs (auto) 1.61 Total Counted Not Reportable PT 12.8 INR 1.0 APTT 32.8 Sodium 140 Potassium 3.5 Chloride 104 Carbon Dioxide 27.0 Anion Gap 9 BUN 15 Creatinine 1.05 Estim Creat Clear Calc 72.88 Est GFR (MDRD) Af Amer 90 Est GFR (MDRD) Non-Af 74 BUN/Creatinine Ratio 14.3 Glucose 165 H Calcium 8.8 Troponin I < 0.015 Assessment/Plan All Active Problems (Last Reviewed 11/16/17 @ 13:24 by Fish Torres MD) STEMI (ST elevation myocardial infarction) (Resolved) 1. Left arm pain in the context of previous STEMI/CAD requiring PTCA/JAJA of the distal RCA and mid RCA October 2017-EKG in ER without ST-T changes. Chest x- ray without acute process. X-ray of left shoulder without dislocation or acute injury. Trend enzymes. Repeat EKG in a.m. Continue aspirin, metoprolol, ticagrelor, lisinopril. Consult cardiology, patient follows with Dr. Torres. 2. Diastolic dysfunction-stable, continue home lisinopril and metoprolol regimen. Echocardiogram October 2017 showed EF 55%, stage II diastolic dysfunction , mild mitral valve insufficiency, mild tricuspid valve insufficiency. 3. Type 2 diabetes mellitus-hemoglobin A1c 6.8% October 2017. Repeat hemoglobin A1c. Discharged in October on metformin, does not appear to be taking? Accu- Cheks before meals at bedtime with sliding scale insulin. 4. Hypertension-stable, continue home lisinopril, metoprolol regimen. 5. Hyperlipidemia-continue statin. 6. Stenosis of the subclavian artery-patient states he has been evaluated as outpatient and no intervention recommended. 7. Tobacco dependence-encourage smoking cessation. Nicotine replacement patch if desired. 8. Obesity-encourage diet lifestyle medications. Nutrition consult. DVT prophylaxis-Lovenox subcu. This patient was seen by ARMIN Braden under the supervision of Dr. Harrison.
--- NOTE | 2018-03-25 17:58 | EKG12_ITS ---
Test Reason : CP ADMIT Blood Pressure : / mmHG Vent. Rate : 070 BPM Atrial Rate : 070 BPM P-R Int : 170 ms QRS Dur : 110 ms QT Int : 420 ms P-R-T Axes : 062 002 039 degrees QTc Int : 453 ms Normal sinus rhythm Normal ECG When compared with ECG of 25-MAR-2018 14:37, MANUAL COMPARISON REQUIRED, DATA IS UNCONFIRMED Confirmed by TIBURCIO WILSON, RADHA ([id number]), newspaper photo editor GAY JEREZ ([id number]) on 03/28/2018 3:25:58 PM Referred By: Radha Torres Confirmed By:RADHA TORRES MD
--- NOTE | 2018-03-25 18:23 | PCM.CONS.C ---
Reason for Consult Date of Consultation: 03/25/18 Reason for Consultation: Left arm pain History of Present Illness: RIGO DIAZ, is a 67 M who presents to the emergency room today with left arm pain. You do remember that he had presented in October to the hospital with bilateral arm discomfort while sustaining an acute inferior wall myocardial infarction. He had presented to the hospital and underwent an angiogram which revealed total occlusion of the distal right coronary artery. Heavily calcified vessel. About 70% lesion was also noted in the mid RCA. The artery was noted to be a tortuous vessel. Balloon angioplasty and stent placement was performed to the distal RCA using a 2.5 x 12 mm resolute drug-eluting stent. This was postdilated with a 3.0 mm balloon under high pressures. The midright coronary artery lesion was treated using a 3.0 x 15 mm resolute drug-eluting stent. This was postdilated using a 3.5 mm balloon. Distal part of the stent was postdilated using a 4.0 mm balloon. He says that discomfort today even though was in the left arm was reminiscent of his previous myocardial infarction therefore he decided to present to the emergency room. He did not have any chest pain per se no palpitations no paroxysmal nocturnal dyspnea or pedal edema. He has been compliant with his medications as well as cardiac rehabilitation. Past Medical History Allergies/Adverse Reactions: Allergies No Known Allergies Allergy (Verified 11/16/17 12:57) Home Medications: Ambulatory Orders Medication Instructions Recorded Aspirin E.C. [Ecotrin] 81 mg PO DAILY@0800 #30 tab 10/30/17 lisinopril 20 1 tab PO BID 90 Days #180 tab 11/16/17 mg-hydrochlorothiazide 12.5 mg tablet metoprolol tartrate 50 mg tablet 50 mg PO BID 90 Days #180 tab 11/16/17 ticagrelor 90 mg tablet 90 mg PO BID #180 tab 11/27/17 Past Medical History (Chronic Problems): Chronic Problems (Last Reviewed 11/16/17 @ 13:24 by Fish Torres MD) HLD (hyperlipidemia) (Chronic) S/P angioplasty with stent (Chronic) PTCA/JAJA of the distal RCA and mid RCA 10/29/2017; HTN (hypertension) (Chronic) Tobacco dependence due to cigarettes (Chronic) Stenosis of left subclavian artery (Chronic) [place] (hard of hearing) (Chronic) Surgical History: herniorrhaphy - Left inguinal, - - elbow surgery Psychiatric History: No pertinent psych hx - *Family History Maternal Family History: Family History (Last Reviewed 11/16/17 @ 13:24 by Fish Torres MD) Father Negative FH of ASCVD History Items: No pertinent history, - - no hx of CAD Paternal Family History: Family History (Last Reviewed 11/16/17 @ 13:24 by Fish Torres MD) Father Negative FH of ASCVD History Items: No pertinent history, - - no hx of CAD Lives: Spouse/ Significant Other Smoking Status: Current every day smoker Tobacco Use: Cigarettes - 10-12 per day Alcohol: None Drugs: None Review of Systems - Review of Systems General: Denies: Fever, Night Sweats, Fatigue Cardiovascular: Reports: - - Left arm discomfort. Denies: Chest Discomfort, Shortness of Breath, Orthopnea, PND, Peripheral Edema, Palpitations, Lightheadedness, Dizziness, Near Syncope, Syncope Respiratory: Denies: Cough, Sputum Production, Hemoptysis Gastrointestinal: Denies: Hematemesis, Hematochezia, Melena Genitourinary: Denies: Dysuria, Hematuria Skin: Denies: Rash Subjectve: Pleasant gentleman in no apparent distress Objective: Vital Signs Temp Pulse Resp BP Pulse Ox 97.4 F L 77 18 161/108 H 97 03/25/18 18:07 03/25/18 18:20 03/25/18 18:07 03/25/18 18:07 03/25/18 18:07 Oxygen Delivery Method Room Air Weight: 236 lb Body Mass Index (BMI) 28.7 General: Awake, Alert, Oriented x 3 HEENT: PERRL, EOMI, Sclera Non Icteric Neck: Supple, Good ROM, No Lymph Node Enlargement Lungs: Clear to auscultation Cardiovascular: Regular Rhythm, Normal S1, Normal S2, No Murmurs, No Rubs, No Gallops Vascular: No Carotid Bruits, Normal Femoral Pulses, Normal Radial Pulses, Normal Dorsalis Pedal Pulse, Normal Posterior Tibial Pulses Abdomen: Bowel Sounds Present, Soft, Non Tender, No HSM, No Organomegaly Extremities: No Cyanosis, No Clubbing, No edema Neurological: No Focal Motor or Sensory Deficit Psych/Mental Status: Appropriate Rhythm: EKG: Normal sinus rhythm with no acute changes ECHO: Stress Test: Cardiac Cath: PCI: CT Surgery: Holter monitor: EPS: PPM: CXR: Chest CT Scan: Assessment/Plan 1. Left arm pain The patient presents with left arm pain which is atypical for coronary artery disease. However due to his previous presentation with bilateral arm pain during his myocardial infarction he is concerned. My recommendation will be for us to obtain serial cardiac enzymes and EKGs. If the above is normal then I will suggest a pharmacologic myocardial perfusion stress test. Depending on the results of the above further recommendations will be made. 2. Coronary artery disease He does have known coronary artery disease with residual disease noted in the distal right coronary artery as well as the left anterior descending artery. The plan after my office visit was for him to undergo a pharmacologic myocardial perfusion stress test and depending on the findings further recommendations will be made. 3. Hypertension Does have a history of high blood pressure but his blood pressure appears to well controlled at this time and will continue to follow him closely. 4. Hyperlipidemia Will continue with aggressive risk factor modification. 5. Tobacco abuse He has been counseled about the above. Thank you for allowing me to participate in the care of your patient. Please don't hesitate to call if any issues arise
--- NOTE | 2018-03-25 18:28 | CON.PCM_ITS ---
Reason for Consult Date of Consultation: 03/25/18 Reason for Consultation: Left arm pain History of Present Illness: RIGO DIAZ, is a 67 M who presents to the emergency room today with left arm pain. You do remember that he had presented in October to the hospital with bilateral arm discomfort while sustaining an acute inferior wall myocardial infarction. He had presented to the hospital and underwent an angiogram which revealed total occlusion of the distal right coronary artery. Heavily calcified vessel. About 70% lesion was also noted in the mid RCA. The artery was noted to be a tortuous vessel. Balloon angioplasty and stent placement was performed to the distal RCA using a 2.5 x 12 mm resolute drug-eluting stent. This was postdilated with a 3.0 mm balloon under high pressures. The midright coronary artery lesion was treated using a 3.0 x 15 mm resolute drug-eluting stent. This was postdilated using a 3.5 mm balloon. Distal part of the stent was postdilated using a 4.0 mm balloon. He says that discomfort today even though was in the left arm was reminiscent of his previous myocardial infarction therefore he decided to present to the emergency room. He did not have any chest pain per se no palpitations no paroxysmal nocturnal dyspnea or pedal edema. He has been compliant with his medications as well as cardiac rehabilitation. Past Medical History Allergies/Adverse Reactions: Allergies No Known Allergies Allergy (Verified 11/16/17 12:57) Home Medications: Ambulatory Orders Medication Instructions Recorded Aspirin E.C. [Ecotrin] 81 mg PO DAILY@0800 #30 tab 10/30/17 lisinopril 20 1 tab PO BID 90 Days #180 tab 11/16/17 mg-hydrochlorothiazide 12.5 mg tablet metoprolol tartrate 50 mg tablet 50 mg PO BID 90 Days #180 tab 11/16/17 ticagrelor 90 mg tablet 90 mg PO BID #180 tab 11/27/17 Past Medical History (Chronic Problems): Chronic Problems (Last Reviewed 11/16/17 @ 13:24 by Fish Torres MD) HLD (hyperlipidemia) (Chronic) S/P angioplasty with stent (Chronic) PTCA/JAJA of the distal RCA and mid RCA 10/29/2017; HTN (hypertension) (Chronic) Tobacco dependence due to cigarettes (Chronic) Stenosis of left subclavian artery (Chronic) [place] (hard of hearing) (Chronic) Surgical History: herniorrhaphy - Left inguinal, - - elbow surgery Psychiatric History: No pertinent psych hx - *Family History Maternal Family History: Family History (Last Reviewed 11/16/17 @ 13:24 by Fish Torres MD) Father Negative FH of ASCVD History Items: No pertinent history, - - no hx of CAD Paternal Family History: Family History (Last Reviewed 11/16/17 @ 13:24 by Fish Torres MD) Father Negative FH of ASCVD History Items: No pertinent history, - - no hx of CAD Lives: Spouse/ Significant Other Smoking Status: Current every day smoker Tobacco Use: Cigarettes - 10-12 per day Alcohol: None Drugs: None Review of Systems - Review of Systems General: Denies: Fever, Night Sweats, Fatigue Cardiovascular: Reports: - - Left arm discomfort. Denies: Chest Discomfort, Shortness of Breath, Orthopnea, PND, Peripheral Edema, Palpitations, Lightheadedness, Dizziness, Near Syncope, Syncope Respiratory: Denies: Cough, Sputum Production, Hemoptysis Gastrointestinal: Denies: Hematemesis, Hematochezia, Melena Genitourinary: Denies: Dysuria, Hematuria Skin: Denies: Rash Subjectve: Pleasant gentleman in no apparent distress Objective: Vital Signs Temp Pulse Resp BP Pulse Ox 97.4 F L 77 18 161/108 H 97 03/25/18 18:07 03/25/18 18:20 03/25/18 18:07 03/25/18 18:07 03/25/18 18:07 Oxygen Delivery Method Room Air Weight: 236 lb Body Mass Index (BMI) 28.7 General: Awake, Alert, Oriented x 3 HEENT: PERRL, EOMI, Sclera Non Icteric Neck: Supple, Good ROM, No Lymph Node Enlargement Lungs: Clear to auscultation Cardiovascular: Regular Rhythm, Normal S1, Normal S2, No Murmurs, No Rubs, No Gallops Vascular: No Carotid Bruits, Normal Femoral Pulses, Normal Radial Pulses, Normal Dorsalis Pedal Pulse, Normal Posterior Tibial Pulses Abdomen: Bowel Sounds Present, Soft, Non Tender, No HSM, No Organomegaly Extremities: No Cyanosis, No Clubbing, No edema Neurological: No Focal Motor or Sensory Deficit Psych/Mental Status: Appropriate Rhythm: EKG: Normal sinus rhythm with no acute changes ECHO: Stress Test: Cardiac Cath: PCI: CT Surgery: Holter monitor: EPS: PPM: CXR: Chest CT Scan: Assessment/Plan 1. Left arm pain * The patient presents with left arm pain which is atypical for coronary artery disease. However due to his previous presentation with bilateral arm pain during his myocardial infarction he is concerned. My recommendation will be for us to obtain serial cardiac enzymes and EKGs. If the above is normal then I will suggest a pharmacologic myocardial perfusion stress test. Depending on the results of the above further recommendations will be made. * 2. Coronary artery disease * He does have known coronary artery disease with residual disease noted in the distal right coronary artery as well as the left anterior descending artery. The plan after my office visit was for him to undergo a pharmacologic myocardial perfusion stress test and depending on the findings further recommendations will be made. * 3. Hypertension * Does have a history of high blood pressure but his blood pressure appears to well controlled at this time and will continue to follow him closely. * 4. Hyperlipidemia * Will continue with aggressive risk factor modification. * 5. Tobacco abuse * He has been counseled about the above. * * Thank you for allowing me to participate in the care of your patient. Please don't hesitate to call if any issues arise
--- NOTE | 2018-03-25 18:30 | ECHOCS_ITS ---
Reason For Study: CAD/ASHD Procedure This was a 2D Doppler, Color Flow transthoracic echocardiogram. The study was technically difficult. Due to body habitus. Contrast injection was performed. Exam performed portable in patient room. Left Ventricle Normal LV size. Mild concentric left ventricular hypertrophy. The estimated ejection fraction is 53 %. Stage 1 diastolic dysfunction. Transmitral and pulmonary venous doppler flow suggestive of impaired relaxation of left ventricle. Transmitral diastolic flow velocities suggest mild (stage 1) diastolic dysfunction (reversed pattern). No regional wall motion abnormalities noted. Right Ventricle Normal RV size. Normal systolic function. Atria The left atrium is mildly enlarged. Normal right atrium. Mitral Valve There is moderate mitral annular calcification. Mild (1+) eccentric mitral valve insufficiency. Tricuspid Valve Normal tricuspid valve. Mild (1+) tricuspid valve insufficiency. Pulmonary artery systolic pressure is 32 mmHg. Aortic Valve Trisinus/trileaflet aortic valve. Pulmonic Valve Normal pulmonic valve. Great Vessels Mildly dilated aortic root. The pulmonary artery is normal size. Normal inferior vena cava. Pericardium/Pleural No pericardial effusion. Medication Diluted definity 4.0ml given slow IV push to enhance endocardial definition. MMode/2D Measurements & Calculations LVIDd: 5.9 cm IVSd: 1.2 cm Ao root diam: 3.5 cm LVIDs: 4.4 cm LVPWd: 1.2 cm LA dimension: 4.2 cm RVDd: 2.9 cm FS: 25.6 % LAV(MOD-bp): 89.7 ml LAV(MOD-bp) Indexed: 37.7 ml/m2 LA A4 area: 22.7 cm2 RA A4 area: 15.1 cm2 LAV(MOD-sp2): 83.9 ml LAV(MOD-sp4): 80.7 ml Doppler Measurements & Calculations MV E max caden: 51.6 cm/sec Lat Peak E' Caden: 6.3 cm/sec Med Peak E' Caden: 6.7 cm/sec MV A max caden: 96.2 cm/sec E/E' lat: 8.2 E/E' med: 7.7 MV E/A: 0.54 Ao V2 max: 180.7 cm/sec LV V1 max: 96.9 cm/sec PA V2 max: 78.4 cm/sec Ao max P.1 mmHg LV V1 max P.8 mmHg PI end-d caden: 112.3 cm/sec TR max caden: 260.6 cm/sec TR max P.2 mmHg Interpretation Summary Normal LV size. Mild concentric left ventricular hypertrophy. The estimated ejection fraction is 53 %. Stage 1 diastolic dysfunction. Mild (1+) eccentric mitral valve insufficiency. Transmitral and pulmonary venous doppler flow suggestive of impaired relaxation of left ventricle Transmitral diastolic flow velocities suggest mild (stage 1) diastolic dysfunction (reversed pattern). Contrast injection was performed. Ordering Physician: Fish Torres Referring Physician: Jarad Mcwilliams Chi Performed By: Francisca Shukla, SHIRA, RVT
[2018-03-25 18:58] LABS: Magnesium 1.8 mg/dL (1.6-2.6)
[2018-03-25 19:07] LABS: Hemoglobin A1c 6.5 % (4.2-6.3)
[2018-03-25] MEDS: Metoprolol Tartrate 50 MG Tablet PO (21:53)
[2018-03-25] MEDS: TICAGRELOR 90 MG TABLET PO (21:53)
[2018-03-25] MEDS: Lisinopril 20 MG Tablet PO (21:53)
[2018-03-25] MEDS: Famotidine 20 MG Tablet PO (21:53)
[2018-03-25] MEDS: HYDROCHLOROTHIAZIDE 12.5 MG CAPSULE PO (21:53)
--- NOTE | 2018-03-25 22:08 | NURSING ---
PATIENT STATES HE DOES NOT HAVE DIABETES AND REFUSING TO HAVE BLOOD SUGARS CHECKS, STATES, DOESN'T SEE THE POINT OF IT.
[2018-03-26] VITALS (8 sets, daily range): BP systolic 135–138; BP diastolic 78–87; PULSE 68–76; RESP 16; TEMP 36.4–36.6; O2SAT 95–98
[2018-03-26] MEDS: Aspirin E.C. 81 MG Tablet PO (05:04)
[2018-03-26] MEDS: TICAGRELOR 90 MG TABLET PO (05:04)
[2018-03-26] MEDS: Lisinopril 20 MG Tablet PO (05:04)
--- NOTE | 2018-03-26 05:55 | EKG12_ITS ---
Test Reason : AM EKG Blood Pressure : / mmHG Vent. Rate : 067 BPM Atrial Rate : 067 BPM P-R Int : 174 ms QRS Dur : 104 ms QT Int : 406 ms P-R-T Axes : 067 002 035 degrees QTc Int : 429 ms Normal sinus rhythm Normal ECG When compared with ECG of 25-MAR-2018 18:59, MANUAL COMPARISON REQUIRED, DATA IS UNCONFIRMED Confirmed by TIBURCIO WILSON, RADHA ([id number]), editor book GAY JEREZ ([id number]) on 03/28/2018 3:24:22 PM Referred By: DR GARCIA Confirmed By:RADHA DEY MD
[2018-03-26 06:21] LABS: Hematocrit 43.9 % (40-54); Hemoglobin 15.9 g/dl (13.0-16.5); Mean Corp Hgb Conc 36.2 g/gl (32-36); Mean Corpuscular Hgb 34.6 pg (27.0-32.0); Mean Corpuscular Volume 95.6 fL (80-94); Mean Platelet Vol. 9.8 fl (6.2-12.0); Platelet Count 248 K/mm3 (150-450); RBC Distribution Width CV 13.3 % (11.6-14.6); RBC Distribution Width SD 45.5 fl (35.1-43.9); Red Blood Count 4.59 M/mm3 (4.6-6.2); White Blood Count 9.1 K/mm3 (4.4-11.0)
[2018-03-26 06:23] LABS: Scan Indicated on CBC? Y/N NO
[2018-03-26 06:34] LABS: ALB/GLOB Ratio 1.1 RATIO (0.9-2.4); AST(SGOT) 21 U/L (15-37); Alanine Aminotransfer ALT/SGPT 32 U/L (16-61); Albumin, Serum 3.6 g/dL (3.2-5.0); Alkaline Phosphatase 71 U/L (45-117); Anion Gap 8 (5-15); BUN 13 mg/dL (7-18); BUN/Creat Ratio 14.2 RATIO (10-20); Calcium,Total 8.7 mg/dL (8.5-10.1); Chloride 107 mmol/L (98-107); Cholesterol 97 mg/dL (200); Creatinine, Serum 0.92 mg/dL (0.70-1.30); EST Glomerular Filtration Rate 87 mL/min (>60); Est Glom Filt Rate - Afr Amer 105 mL/min (>60); Estimated Creatinine Clearance 93.04 ml/min; Globulin 3.3 g/dL (2.2-4.2); Glucose 128 mg/dL (74-106); High Density Lipoprotein 29 mg/dL; Potassium 3.6 mmol/L (3.5-5.1); Protein, Total 6.9 g/dL (6.4-8.2); Sodium Level 139 mmol/L (136-145); Triglycerides 165 mg/dL; Very Low Density Lipoprotein 33 mg/dL (5-40)
--- NOTE | 2018-03-26 11:15 | STRESSREP ---
Stress Test Report From oncologic myocardial perfusion stress test. 67-year-old male with a history of coronary artery disease. Stress protocol: Resting EKG demonstrates normal sinus rhythm with a rate of 80 bpm normal intervals and noted resting blood pressure 738/80 2 mmHg. 0.4 mg of regadenoson was infused per usual protocol followed by rapid intravenous and flush injection continuous EKG monitoring was performed. Patient maintained sinus rhythm throughout the recording with occasional premature ventricular complexes noted. The maximum heart rate attained was 113 bpm or 74% of maximum predicted heart rate the maximum workload was 1 metabolic equivalent. At rest there were no ST or T wave changes noted suggest abnormal flow reserve at peak infusion no ST or T wave changes were noted suggest abnormal flow reserve. The resting blood pressure 138/82 with a peak blood pressure 158/80. Myocardial perfusion protocol. 14.7 mCi of technetium 99m sestamibi was injected at rest. 0.4 mg of regadenoson was infused per usual protocol peak infusion 44.4 mCi of technetium 99m sestamibi was injected stress images were obtained stress and rest images were reconstructed and compared in the short axis vertical and horizontal long axis. Gated images were also obtained next Perfusion SPECT analysis: Review of the stress images demonstrate normal uptake of tracer noted in all areas of myocardium the anterior wall lateral wall and septum appeared well perfused. The basal inferior wall has mildly reduced perfusion which seems to be present on the resting images. There is also some diaphragmatic attenuation. No obvious areas of stress-induced ischemia are noted. Gated SPECT analysis: The gated ejection fraction is noted to be 58%. Conclusion: Normal pharmacologic myocardial perfusion stress test. Preserved ejection fraction.
--- NOTE | 2018-03-26 11:19 | PN.CARD_ITS ---
Subjectve: Patient seen and evaluated. Objective: Vital Signs Temp Pulse Resp BP Pulse Ox 97.8 F 69 16 138/78 H 95 03/26/18 05:00 03/26/18 06:57 03/26/18 05:00 03/26/18 05:00 03/26/18 07:14 Oxygen Delivery Method Room Air Weight: 236 lb Body Mass Index (BMI) 28.7 Intake and Output for Last 24 Hours 03/24/18 03/25/18 03/26/18 23:59 23:59 23:59 Intake Total 440 / 440 Balance 440 / 440 Vascular: No Carotid Bruits, Normal Femoral Pulses, Normal Radial Pulses, Normal Dorsalis Pedal Pulse, Normal Posterior Tibial Pulses Abdomen: Bowel Sounds Present, Soft, Non Tender, No HSM, No Organomegaly Extremities: No Cyanosis, No Clubbing, No edema Neurological: No Focal Motor or Sensory Deficit 03/25/18 18:38: Magnesium 1.8 03/25/18 18:38: Hemoglobin A1c 6.5 H 03/25/18 18:38: Troponin I < 0.015 03/25/18 21:22: Troponin I < 0.015 03/26/18 05:52: WBC 9.1, RBC 4.59 L, Hgb 15.9, Hct 43.9, MCV 95.6 H, MCH 34.6 H , MCHC 36.2 H, RDW 13.3, RDW Differential 45.5 H, Plt Count 248, MPV 9.8 03/26/18 05:52: Sodium 139, Potassium 3.6, Chloride 107, Carbon Dioxide 24.0, Anion Gap 8, BUN 13, Creatinine 0.92, Est GFR (MDRD) Af Amer 105, Est GFR (MDRD ) Non-Af 87, BUN/Creatinine Ratio 14.2, Glucose 128 H, Calcium 8.7, Total Bilirubin 0.60, Triglycerides 165, Cholesterol 97, LDL Cholesterol 35, VLDL Cholesterol 33, HDL Cholesterol 29 L Rhythm: EKG: ECHO: Stress Test: Cardiac Cath: PCI: CT Surgery: Holter monitor: EPS: PPM: CXR: Chest CT Scan: Medical Necessity - Tobacco Use Smoking Status: Current every day smoker Tobacco Use: Cigarettes Assessment/Plan 1. Left arm pain * The patient presents with left arm pain which is atypical for coronary artery disease. However due to his previous presentation with bilateral arm pain during his myocardial infarction he is concerned. My recommendation will be for us to obtain serial cardiac enzymes and EKGs. * The pharmacologic myocardial perfusion stress test performed this morning did not demonstrate any evidence of ischemia. The ejection fraction was also noted to be preserved and the plan will be to continue with medical therapy. 2. Coronary artery disease * He does have known coronary artery disease with residual disease noted in the distal right coronary artery as well as the left anterior descending artery. * He will continue with medical therapy. 3. Hypertension * Does have a history of high blood pressure but his blood pressure appears to well controlled at this time and will continue to follow him closely. * 4. Hyperlipidemia * Will continue with aggressive risk factor modification. * 5. Tobacco abuse * He has been counseled about the above. * * Thank you for allowing me to participate in the care of your patient. Please don't hesitate to call if any issues arise
[2018-03-26] MEDS: Metoprolol Tartrate 50 MG Tablet PO (11:23)
[2018-03-26] MEDS: HYDROCHLOROTHIAZIDE 12.5 MG CAPSULE PO (11:23)
[2018-03-26] MEDS: Famotidine 20 MG Tablet PO (11:23)
--- NOTE | 2018-03-26 11:39 | DCINST_ITS ---
You will use the following diet at home:: Cardiac Discharge Activity: Return to Normal Activity Call your doctor if you observe: Shortness of breath, Dizziness, Fainting spells , Chest pain Allergies/Adverse Reactions: Allergies No Known Allergies Allergy (Verified 11/16/17 12:57) Medications to take at Discharge Aspirin E.C. [Ecotrin] 81 mg PO DAILY@0800 #30 tab 10/30/17 lisinopril 20 mg-hydrochlorothiazide 12.5 mg tablet 1 tab PO BID 90 Days #180 tab 11/16/17 metoprolol tartrate 50 mg tablet 50 mg PO BID 90 Days #180 tab 11/16/17 ticagrelor 90 mg tablet 90 mg PO BID #180 tab 11/27/17 Multivitamin [Multiple Vitamins] 1 each PO DAILY 03/25/18 Primary Care Physician: Jarad Mcwilliams Chi, MD [Primary Care Provider] - Please follow up with your Primary Care Physician in: 1 Week Test Results: Test results from this visit will be discussed in further detail at your follow- up appointment, if applicable. Please Follow Up With: Fish Torres MD When: As scheduled, 04/06/2018 Proposed Discharge Date: 03/26/18
--- NOTE | 2018-03-26 11:41 | DS.PCM_ITS ---
<Layla Wood - Last Filed: 03/26/18 11:46> Discharge Date and Diagnosis Date of Admission: 03/25/18 Date of Discharge: 03/26/18 - Primary Discharge Diagnosis 1. Atypical chest pain/left arm pain in the context of previous CAD requiring PTCA-ACS ruled out. - Secondary Discharge Diagnosis Chronic Problems (Last Reviewed 11/16/17 @ 13:24 by Fish Torres MD) HLD (hyperlipidemia) (Chronic) S/P angioplasty with stent (Chronic) PTCA/JAJA of the distal RCA and mid RCA 10/29/2017; HTN (hypertension) (Chronic) Tobacco dependence due to cigarettes (Chronic) Stenosis of left subclavian artery (Chronic) [place] (hard of [place]) (Chronic) Type 2 diabetes mellitus Hospital Course and Treatment Imaging Results: Diagnostic Data Shoulder X-Ray 03/25/18 15:13 IMPRESSION: 1. No fracture or dislocation. 2. Mild osteoarthrosis of the glenohumeral joint. Electronically Signed: Citlaly Melton MD at 16:40 EDT Tel , Service support , Chest X-Ray 03/25/18 16:00 IMPRESSION: No acute process. Electronically Signed: Citlaly Melton MD at 16:41 EDT Tel , Service support , Dr. Torres- Cardiology Operations: None Procedures: 2-D Echocardiogram, Stress test Summary of Care Provided: The patient is a 67 year old M admitted 03/25/2018 due to left arm pain. 1. Left arm pain in the context of previous STEMI/CAD requiring PTCA/JAJA of the distal RCA and mid RCA October 2017-EKG in ER without ST-T changes. Chest x- ray without acute process. X-ray of left shoulder without dislocation or acute injury. Continue aspirin, metoprolol, ticagrelor, lisinopril. Cardiology consulted during admission. Patient follows with Dr. Torres. Troponin negative. Patient underwent nuclear stress test which was negative for ischemia. Patient will follow up with cardiology as scheduled 04/06/2018 as well as continued cardiac rehab program. 2. Diastolic dysfunction-stable, continue home lisinopril and metoprolol regimen. Echocardiogram October 2017 showed EF 55%, stage II diastolic dysfunction , mild mitral valve insufficiency, mild tricuspid valve insufficiency. Repeat echocardiogram completed during admission. This will be reviewed at upcoming follow-up appointment with cardiology. 3. Type 2 diabetes mellitus-hemoglobin A1c 6.8% October 2017. Repeat hemoglobin A1c 6.5%. Discharged in October on metformin, does not appear to be taking? Rx given for metformin 500 mg twice daily at discharge. Recommend further monitoring by primary care physician. 4. Hypertension-stable, continue home lisinopril, metoprolol regimen. 5. Hyperlipidemia-continue statin. 6. Stenosis of the subclavian artery-patient states he has been evaluated as outpatient and no intervention recommended. 7. Tobacco dependence-encourage smoking cessation. 8. Obesity-encourage diet lifestyle medications. General: Alert, Oriented x3, Cooperative, No apparent distress HEENT: Atraumatic, PERRLA, EOMI, Normocephalic Neck: Supple, No JVD, Negative Carotid Bruits Lungs: Clear to auscultation, Normal air movement Cardiovascular: Regular rate, Regular Rhythm, Normal S1, Normal S2, No murmurs Abdomen: Bowel Sounds Present, Soft, Non Tender Extremities: No clubbing, No cyanosis, No edema, Capillary Refill Less than 3 Seconds Skin: No rashes, No breakdown Musculoskeletal: No Tenderness to Palpation of Joints or Extremities Neurological: Cranial nerves II-XII grossly intact, Neuro grossly intact Psych/Mental Status: Normal Affect, Appropriate Patient seen exam prior to discharge. Physical assessment as noted above. Patient stable for discharge home with the follow-up her conditions as noted above. This patient was seen by ARMIN Braden under the supervision of Dr. Parham. Discharge Diet: Low fat/ Low Cholesterol, Carb Control Diet Discharge Activity: Return to Normal Activity Call your doctor if you observe: Shortness of breath, Dizziness, Fainting spells , Chest pain Home Medications: Medications to take at Discharge Aspirin E.C. [Ecotrin] 81 mg PO DAILY@0800 #30 tab 10/30/17 lisinopril 20 mg-hydrochlorothiazide 12.5 mg tablet 1 tab PO BID 90 Days #180 tab 11/16/17 metoprolol tartrate 50 mg tablet 50 mg PO BID 90 Days #180 tab 11/16/17 ticagrelor 90 mg tablet 90 mg PO BID #180 tab 11/27/17 Multivitamin [Multiple Vitamins] 1 each PO DAILY 03/25/18 Metformin HCl 500 mg PO BID #60 tab 03/26/18 Following Prescrptions Were Given to Patient: Metformin HCl 500 mg PO BID #60 tab Primary Care Physician: Jarad Mcwilliams Chi, MD [Primary Care Provider] - Please follow up with your Primary Care Physician in: 1 Week Please Follow Up With: Fish Torres MD When: As scheduled, 04/06/2018 Patient Instructions: Metformin Hydrochloride Oral tablet Disposition: Home Minutes spent on discharge:: 35 Patient Condition:: Stable Medical Necessity - Tobacco Use Smoking Status: Current every day smoker Tobacco Use: Cigarettes Meaningful Use Info Meaningful Use Diagnoses (Choose all that apply): None applicable <Hong Parham - Last Filed: 03/26/18 14:00> Discharge Date and Diagnosis - Secondary Discharge Diagnosis Chronic Problems (Last Reviewed 11/16/17 @ 13:24 by Fish Torres MD) HLD (hyperlipidemia) (Chronic) S/P angioplasty with stent (Chronic) PTCA/JAJA of the distal RCA and mid RCA 10/29/2017; HTN (hypertension) (Chronic) Tobacco dependence due to cigarettes (Chronic) Stenosis of left subclavian artery (Chronic) [place]hard of [place]) (Chronic) Hospital Course and Treatment Imaging Results: 03/26/18 09:00 Nuclear Stress Test - Chemical [NM] Routine Operations: None Procedures: 2-D Echocardiogram, Stress test Summary of Care Provided: Patient seen and examined independently. Data reviewed. I agree with the above note by the nurse practitioner. The patient is a 67 year old M presents with chest pain. Underwent a nuclear stress test that was negative. Patient will follow up with cardiology had a previously scheduled appointment on the . [] Discharge Diet: Low fat/ Low Cholesterol, Carb Control Diet Discharge Activity: Return to Normal Activity Disposition: Home Patient Condition:: Stable Meaningful Use Info Meaningful Use Diagnoses (Choose all that apply): None applicable Code Visit OBSV E&M: 55652 Observation care discharge
== END 2018-03-26 11:38 | disposition home or self-care (01) ==
LOC: ED 15:20 → PCU 17:32
PROVIDERS: Family Medicine; Admitting Provider Internal Medicine; Emergency Provider Emergency Medicine; Family Provider Family Medicine Geriatric Medicine; PCP Family Medicine Geriatric Medicine
DX: R07.89 Other chest pain (principal); I25.10 Atherosclerotic heart disease of native coronary artery without angina pectoris; Z95.5 Presence of coronary angioplasty implant and graft; M79.602 Pain in left arm; E78.5 Hyperlipidemia, unspecified; F17.210 Nicotine dependence, cigarettes, uncomplicated; E11.9 Type 2 diabetes mellitus without complications; I10 Essential (primary) hypertension; I25.2 Old myocardial infarction; Z79.899 Other long term (current) drug therapy; Z79.82 Long term (current) use of aspirin; H91.90 Unspecified hearing loss, unspecified ear
CPT/HCPCS: 36415; 71046; 73030; 78452; 80048; 80053; 80061; 83036; 83735; 84484; 85025; 85027; 85610; 85730; 93005; 93017; 93306; 96360; 96361; 99218; 99283; A9500; J7030; Q9957; A4216; C8929; G0378; J2785

== ENCOUNTER 2018-04-04 09:15 | Outpatient (RCR) | payer MEDICARE, OTHER, SELFPAY ==
[2018-03-10 01:10] VITALS: BP 122/64; BP 152/80
== END 2018-04-08 23:59 ==
LOC: CR 09:15
PROVIDERS: Family Provider Family Medicine Geriatric Medicine; PCP Family Medicine Geriatric Medicine; Visit Provider Internal Medicine Cardiovascular Disease
DX: I21.3 ST elevation (STEMI) myocardial infarction of unspecified site (principal); Z95.9 Presence of cardiac and vascular implant and graft, unspecified
CPT/HCPCS: 93798

== ENCOUNTER → 2018-04-05 14:11 | Outpatient (CLI) | payer MEDICARE, OTHER, SELFPAY ==
[2018-04-05 17:07] LABS: Absolute Lymphocyte Count 1.89 X10^3/ul (0.83-4.51); Absolute Neutrophil Count 6.8 X10^3/uL (2.0-7.7); Basophil# 0.08 X10^3/uL; Basophil% 0.8 % (0-1); Eosinophil# 0.51 X10^3/uL; Eosinophils% 5.1 % (0-5); Hematocrit 44.9 % (40-54); Hemoglobin 15.7 g/dl (13.0-16.5); Lymphocyte # 1.89 X10^3/ul (4.0); Lymphocyte % 18.9 % (19-41); Mean Corpuscular Hgb 34.4 pg (27.0-32.0); Mean Corpuscular Volume 98.2 fL (80-94); Mean Platelet Vol. 10.5 fl (6.2-12.0); Monocyte# 0.66 X10^3/uL; Monocyte% 6.6 % (0-10); Neutrophil # 6.82 X10^3/uL (2.7-7.7); Neutrophil % 68.3 % (47-70); Platelet Count 277 K/mm3 (150-450); RBC Distribution Width CV 13.9 % (11.6-14.6); RBC Distribution Width SD 49.7 fl (35.1-43.9); Red Blood Count 4.57 M/mm3 (4.6-6.2)
[2018-04-05 17:08] LABS: POSITIVE COUNT NO; POSITIVE DIFFERENTIAL NO; POSITIVE MORPHOLOGY NO
[2018-04-05 17:33] LABS: ALB/GLOB Ratio 1.1 RATIO (0.9-2.4); AST(SGOT) 23 U/L (15-37); Alanine Aminotransfer ALT/SGPT 43 U/L (16-61); Albumin, Serum 3.9 g/dL (3.2-5.0); Alkaline Phosphatase 76 U/L (45-117); Anion Gap 9 (5-15); BUN 15 mg/dL (7-18); BUN/Creat Ratio 13.8 RATIO (10-20); Calcium,Total 9.1 mg/dL (8.5-10.1); Chloride 103 mmol/L (98-107); Creatinine, Serum 1.09 mg/dL (0.70-1.30); EST Glomerular Filtration Rate 71 mL/min (>60); Est Glom Filt Rate - Afr Amer 86 mL/min (>60); Globulin 3.4 g/dL (2.2-4.2); Glucose 112 mg/dL (74-106); Potassium 4.1 mmol/L (3.5-5.1); Protein, Total 7.3 g/dL (6.4-8.2); Sodium Level 139 mmol/L (136-145); Thyroid Stim Hormone (TSH) 1.17 uIU/mL (0.358-3.74)
== END ==
PROVIDERS: Family Provider Family Medicine Geriatric Medicine; PCP Family Medicine Geriatric Medicine; Visit Provider Family Medicine Geriatric Medicine
DX: E55.9 Vitamin D deficiency, unspecified (principal); I10 Essential (primary) hypertension
CPT/HCPCS: 36415; 80053; 82306; 84443; 85025

== ENCOUNTER → 2018-10-17 15:24 | Outpatient (CLI) | payer MEDICARE, OTHER, SELFPAY ==
[2018-10-03 13:57] VITALS: BMI 28.8
[2018-10-17 17:41] LABS: Absolute Lymphocyte Count 1.73 X10^3/ul (0.83-4.51); Basophil# 0.03 X10^3/uL; Basophil% 0.3 % (0-1); Eosinophil# 0.48 X10^3/uL; Eosinophils% 5.4 % (0-5); Hematocrit 47.4 % (40-54); Hemoglobin 16.5 g/dl (13.0-16.5); Lymphocyte # 1.73 X10^3/ul (4.0); Lymphocyte % 19.4 % (19-41); Mean Corp Hgb Conc 34.8 g/gl (32-36); Mean Corpuscular Hgb 33.6 pg (27.0-32.0); Mean Corpuscular Volume 96.5 fL (80-94); Mean Platelet Vol. 10.3 fl (6.2-12.0); Monocyte# 0.63 X10^3/uL; Monocyte% 7.1 % (0-10); Neutrophil # 6.02 X10^3/uL (2.7-7.7); Neutrophil % 67.5 % (47-70); Platelet Count 304 K/mm3 (150-450); RBC Distribution Width CV 13.3 % (11.6-14.6); RBC Distribution Width SD 46.1 fl (35.1-43.9); Red Blood Count 4.91 M/mm3 (4.6-6.2); White Blood Count 8.9 K/mm3 (4.4-11.0)
[2018-10-17 17:44] LABS: POSITIVE COUNT NO; POSITIVE DIFFERENTIAL NO; POSITIVE MORPHOLOGY NO
[2018-10-17 18:05] LABS: ALB/GLOB Ratio 1.2 RATIO (0.9-2.4); AST(SGOT) 25 U/L (15-37); Alanine Aminotransfer ALT/SGPT 41 U/L (16-61); Albumin, Serum 4.1 g/dL (3.2-5.0); Alkaline Phosphatase 76 U/L (45-117); Anion Gap 6 (5-15); BUN 16 mg/dL (7-18); BUN/Creat Ratio 14.3 RATIO (10-20); Calcium,Total 9.5 mg/dL (8.5-10.1); Chloride 102 mmol/L (98-107); Creatinine, Serum 1.12 mg/dL (0.70-1.30); EST Glomerular Filtration Rate 69 mL/min (>60); Est Glom Filt Rate - Afr Amer 83 mL/min (>60); Globulin 3.3 g/dL (2.2-4.2); Glucose 103 mg/dL (74-106); Potassium 3.9 mmol/L (3.5-5.1); Protein, Total 7.4 g/dL (6.4-8.2); Sodium Level 136 mmol/L (136-145); Thyroid Stim Hormone (TSH) 1.33 uIU/mL (0.358-3.74)
== END ==
PROVIDERS: Family Provider Family Medicine Geriatric Medicine; PCP Family Medicine Geriatric Medicine; Visit Provider Family Medicine Geriatric Medicine
DX: E11.9 Type 2 diabetes mellitus without complications (principal); E55.9 Vitamin D deficiency, unspecified; I10 Essential (primary) hypertension
CPT/HCPCS: 36415; 80053; 82306; 84443; 85025

== ENCOUNTER 2019-03-23 18:42 | Inpatient (IN) | payer MEDICARE, OTHER, SELFPAY ==
[2018-10-03 13:57] VITALS: BMI 28.8
[2019-03-23] VITALS (21 sets, daily range): BP systolic 63–170; BP diastolic 46–151; PULSE 20–206; RESP 14–26; TEMP 36.6; O2SAT 95–99; BMI 32.5; BMI 28.2; BMI 28.3
[2019-03-23] MEDS: Midazolam 2 MG/2 ML Syringe IV (18:51)
[2019-03-23] MEDS: fentaNYL 100 MCG/2 ML Ampul 50 MCG IV (18:51)
--- NOTE | 2019-03-23 19:03 | EKG12_ITS ---
Test Reason : REPEAT Blood Pressure : / mmHG Vent. Rate : 096 BPM Atrial Rate : 096 BPM P-R Int : 174 ms QRS Dur : 096 ms QT Int : 378 ms P-R-T Axes : 068 000 058 degrees QTc Int : 477 ms Sinus rhythm with occasional Premature ventricular complexes Low voltage QRS Borderline ECG Confirmed by KAILASH WILSON, CHRISTOPHER ([id number]), associate editor GAY JEREZ ([id number]) on 03/26/2019 12:10:48 PM Referred By: Confirmed By:ISREAL LINDER MD
--- NOTE | 2019-03-23 19:05 | EKG12_ITS ---
Test Reason : Blood Pressure : / mmHG Vent. Rate : 067 BPM Atrial Rate : 067 BPM P-R Int : 188 ms QRS Dur : 104 ms QT Int : 412 ms P-R-T Axes : 070 -01 043 degrees QTc Int : 435 ms Sinus rhythm with occasional Premature ventricular complexes Confirmed by ANDREA WILSON, PAOLA ([id number]), business editor BRENDA ARSHAD ([id number]) on 03/27/2019 2:34:54 PM Referred By: ROBERT Confirmed By:PAOLA MENDEZ MD
[2019-03-23 19:14] LABS: Absolute Lymphocyte Count 2.68 X10^3/uL (0.83-4.51); Absolute Neutrophil Count 8.3 X10^3/uL (2.0-7.7); Basophil# 0.11 X10^3/uL; Basophil% 0.8 % (0-1); Eosinophil# 0.82 X10^3/uL; Eosinophils% 6.3 % (0-5); Hematocrit 50.5 % (40-54); Hemoglobin 17.1 g/dL (13.0-16.5); Lymphocyte # 2.68 X10^3/ul (4.0); Lymphocyte % 20.5 % (19-41); Mean Corp Hgb Conc 33.9 g/dL (32-36); Mean Corpuscular Hgb 33.5 pg (27.0-32.0); Mean Corpuscular Volume 98.8 fL (80-94); Mean Platelet Vol. 9.9 fl (6.2-12.0); Monocyte# 1.09 X10^3/uL; Monocyte% 8.3 % (0-10); NRBC Flagged by Analyzer 0 % (0-5); Neutrophil # 8.33 X10^3/uL (2.7-7.7); Neutrophil % 63.7 % (47-70); Platelet Count 321 K/mm3 (150-450); RBC Distribution Width CV 13.1 % (11.6-14.6); RBC Distribution Width SD 47.8 fl (35.1-43.9); Red Blood Count 5.11 M/mm3 (4.6-6.2); White Blood Count 13.1 K/mm3 (4.4-11.0)
--- NOTE | 2019-03-23 19:15 | RAD_ITS ---
STUDY: X-RAY CHEST REASON FOR EXAM: Male, 68 years old. Dizziness TECHNIQUE: Frontal portable view of the chest was performed COMPARISON: 25 March 2018 FINDINGS: The lungs are clear and expanded. There is no demonstrated pleural abnormality. Normal size heart. Normal mediastinum and schuyler. Normal visualized pulmonary arteries. Normal visualized aortic arch and descending thoracic aorta. Normal visualized thoracic spine. Normal visualized ribs, clavicles, and shoulders. There is no demonstrated abnormality of the visualized soft tissue structures of the upper abdomen. RAD/Chest 1 View (Portable) IMPRESSION: Normal x-ray examination of the chest. Electronically Signed: Brent Toro, at 19:54 EDT Tel , Service support ,
[2019-03-23 19:18] LABS: Partial Thromboplast Time 32.7 Seconds (24.1-36.2)
[2019-03-23 19:29] LABS: Anion Gap 5 (5-15); BUN 25 mg/dL (7-18); Calcium,Total 9.7 mg/dL (8.5-10.1); Chloride 106 mmol/L (98-107); Creatinine, Serum 1.47 mg/dL (0.70-1.30); EST Glomerular Filtration Rate 50 mL/min (>60); Est Glom Filt Rate - Afr Amer 61 mL/min (>60); Estimated Creatinine Clearance 54.37 ml/min; Glucose 136 mg/dL (74-106); Potassium 3.6 mmol/L (3.5-5.1); Sodium Level 139 mmol/L (136-145)
[2019-03-23] MEDS: Aspirin 81 MG TAB.CHEW 324 MG PO (19:30)
--- NOTE | 2019-03-23 19:47 | ED.DCSUM_ITS ---
- ER Visit Summary Date of Service: 03/23/19 Chief Complaint: Dizziness History of Present Illness: The patient is a 68 M presenting with dizziness. Patient has not felt well throughout the day. He became very dizzy and fell onto his buttock. He was diaphoretic per his . He did not hit his head. He did not lose consciousness. She called EMS. On their arrival he was in a wide-complex tachycardia. He was not given any medication en route. On arrival he remains in a wide-complex tachycardia. He is awake and alert. He denies chest pain or other complaints. Physical Examination: Blood pressure 170/151, temperature 97.9, heart rate 206, respiratory rate 23, pulse ox 97% on 2 L. Alert moderate acute distress. HEENT exam is unremarkable. Neck is supple. Lungs are clear and equal bilaterally. Heart is regular and tachycardic Abdomen is soft nontender nondistended. Extremities are unremarkable. Skin is warm and diaphoretic. No focal neurologic deficit. Remainder of exam is unremarkable. Emergency Department Course and Treatment: EKG shows wide complex tachycardia rate of 208. IV was placed. He was given Versed and fentanyl IV. He was shocked with 200 J. He was given started on amnio bolus and drip. He is now in sinus rhythm. He initially became hypotensive which improved with IV fluids. CBC shows a white count 13.1. Chemistries normal except for BUN 25, creatinine 1.47. Troponin 0.078. Discussed with Dr. Hernandez. He feels patient can be admitted here. Discussed with the hospitalist for admission. Disposition: Admission Impression: Ventricular tachycardia This note was generated with [employer] dictation software. It may contain incorrect words, spelling, and punctuation that were not noted in review of the chart prior to signing ED Disposition - Plan for ED Patient: Referrals: Jarad Mcwilliams Chi, MD [Primary Care Provider] -
--- NOTE | 2019-03-23 20:32 | HP.PCM_ITS ---
Problem List (1) Sustained ventricular tachycardia Status: Acute (2) Essential (primary) hypertension Status: Chronic (3) Nicotine dependence Status: Chronic Qualifiers: Nicotine product type: cigarettes Substance use status: unspecified nicotine-induced disorder Qualified Code(s): F17.219 - Nicotine dependence, cigarettes, with unspecified nicotine-induced disorders (4) Atherosclerosis of coronary artery of [place] heart with angina pectoris Status: Chronic Qualifiers: Coronary Disease-Associated Artery/Lesion type: [place] artery Qualified Code(s): I25.119 - Atherosclerotic heart disease of [place] coronary artery with unspecified angina pectoris Comment: [id number] RCA using 2.5 x 12 mm Resolute Integrity and PCI-JAJA-Mid RCA using 3.0 x 15 mm Resolute Integrity 10/29/17 (5) History of coronary artery stent placement Status: Resolved Comment: [id number]-Mhmkul RCA using 2.5 x 12 mm Resolute Integrity and PCI-JAJA-Mid RCA using 3.0 x 15 mm Resolute Integrity (6) HLD (hyperlipidemia) Status: Chronic Qualifiers: Hyperlipidemia type: pure hypercholesterolemia Qualified Code(s): E78.00 - Pure hypercholesterolemia, unspecified; E78.0 - Pure hypercholesterolemia (7) Stenosis of left subclavian artery Status: Chronic History of Present Illness Date of Admission: 03/23/19 Chief Complaint: Malaise, fatigue, dizziness. The patient is a 68 y/o M w/ PMHx: Hypertension, Hyperlipidemia, Hx Inferior [place]/STEMI, CAD s/p PCI, ongoing Tobacco use with cigarettes, Hx Left subclavian artery stenosis, Diabetes mellitus type II, 10/29/17 Inferior STEMI w/ noted ongoing malaise, fatigue x 2 to 3 days with more prominent onset dizziness, intermittent however more constant starting later in the day on day of ED presentation prompting eventual ED presentation with no palpitations, chest discomfort, dyspnea associated but did note that during these events he had notable diaphoresis. Work-up in the ED included initial vital signs in the emergency room included T 97.9, heart rate initially 206, BP 170/151, respiratory rate 23, 97% on 2 L nasal cannula with then notable hypotension with BP down to 63/46 wanting cardioversion with vital signs following improved with heart rate 84, BP 102/71, respiratory rate 18, 98% on room air, CBC with WBC 13.1, hemoglobin 17.1, platelet 321 with left shift, unremarkable coags, BMP with BUN/creatinine 5?1 0.47, glucose 136, troponin 0.078, chest x-ray with no acute cardia pulmonary process, initial presentation with wide-complex tachycardia with following ministration Versed, fentanyl and cardioversion with 200 J plus initiation of amiodarone bolus and drip transition to sinus rhythm. In the ED as noted patient was given Versed and fentanyl with cardioversion with 200 J following as well as initiation of amiodarone bolus and drip per discussion with cardiology. 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) Nicotine dependence (Chronic) Atherosclerosis of coronary artery of [place] heart with angina pectoris (Chronic) [id number]-Pkvqbi RCA using 2.5 x 12 mm Resolute Integrity and PCI-JAJA-Mid RCA using 3.0 x 15 mm Resolute Integrity 10/29/17 HLD (hyperlipidemia) (Chronic) Stenosis of left subclavian artery (Chronic) Medical History: Medical History (Last Reviewed 04/06/18 @ 09:15 by Fish Torres MD) Essential (primary) hypertension (Chronic) I10 Old inferior wall myocardial infarction (Chronic) Onset Date: 10/29/17 I25.2 Nicotine dependence (Chronic) F17.200 Atherosclerosis of coronary artery of [place] heart with angina pectoris (Chronic) I25.119 EJM-IIA-Bqjzpt RCA using 2.5 x 12 mm Resolute Integrity and PCI-JAJA-Mid RCA using 3.0 x 15 mm Resolute Integrity 10/29/17 HLD (hyperlipidemia) (Chronic) E78.5 Stenosis of left subclavian artery (Chronic) I77.1 GERD (gastroesophageal reflux disease) K21.9 CHENEGA (hard of hearing) (Inactive) H91.90 Allergies No Known Allergies Allergy (Verified 03/23/19 18:44) Home Medications: Ambulatory Orders Medication Instructions Recorded Aspirin E.C. [Ecotrin] 81 mg PO DAILY@0800 #30 tab 10/30/17 lisinopril 20 1 tab PO BID 90 Days #180 tab 11/16/17 mg-hydrochlorothiazide 12.5 mg tablet metoprolol tartrate 50 mg tablet 50 mg PO BID 90 Days #180 tab 11/16/17 Multivitamin [Multiple Vitamins] 1 ea PO DAILY 03/25/18 atorvastatin 40 mg tablet 40 mg PO QODAY 04/06/18 B-complex with vitamin C capsule 1 cap PO DAILY 10/03/18 ticagrelor 90 mg tablet 90 mg PO BID #180 tab 11/05/18 Brimonidine Tartrate [Alphagan P] 1 drp LEFT EYE BID 03/23/19 Latanoprost 1 drp LEFT EYE QHS 03/23/19 Surgical History: Surgical History (Last Reviewed 04/06/18 @ 09:15 by Fish Torres MD) History of coronary artery stent placement (Resolved) Onset Date: 10/29/17 Z95.5 VSV-JDN-Pfbveu RCA using 2.5 x 12 mm Resolute Integrity and PCI-JAJA-Mid RCA using 3.0 x 15 mm Resolute Integrity History of herniorrhaphy Z98.890, Z87.19 Left inguinal Hx of elbow surgery Z98.890 Surgical History: herniorrhaphy - Left inguinal, - - Elbow surgery, PCI, hernia repair. Psychiatric History: No pertinent psych hx Lives: Spouse/ Significant Other Smoking Status: Current every day smoker - Patient currently smoking proximal me 10 cigarettes/day. Tobacco Use: Cigarettes Alcohol: Occasional Drugs: None - *Family History Maternal Family History: Family History (Last Reviewed 04/06/18 @ 09:15 by Fish Torres MD) Father Negative FH of ASCVD History Items: Hypertension Paternal Family History: Family History (Last Reviewed 04/06/18 @ 09:15 by Fish Torres MD) Father Negative FH of ASCVD History Items: Hypertension Review of Systems Constitutional: Reports: Anorexia, Malaise, Weakness, Fatigue. Denies: Chills, Fever, Weight Change HEENT: Denies: Head Aches, Sinus Congestion, Sinus Drainage Cardiovascular: Reports: - - Dizziness.. Denies: Chest Pain, Palpitations Respiratory: Denies: Cough, Shortness of breath at rest, Sputum production Gastrointestinal: Reports: Nausea. Denies: Abdominal Pain, Vomiting Genitourinary: Denies: Dysuria Musculoskeletal: Reports: Joint Pain. Denies: Joint Tenderness Skin: Denies: Rash, Wounds Neurological: Reports: - - Dizziness.. Denies: Focal weakness, Numbness, Tingling Psychiatric: Denies: Anxiety, Depression, Homicidal Ideations, Suicidal Ideations Hematologic/ Lymphatic: Reports: Easy Bruising, Easy Bleeding VTE Information - Inpt Only VTE Present on Admission: No VTE Mechan Device Prophylaxis: SCD's VTE Pharm Prophylaxis ordered?: Yes Patient Problems: Active and Suspected Problems (Last Reviewed 04/06/18 @ 09:15 by Fish Torres MD) Sustained ventricular tachycardia (Acute) Subjective: Seated upright in the ICU bed, fatigued appearance otherwise no acute distress, no dizziness currently. Objective: Physical Examination: General: awake, alert, oriented x 3 and cooperative, seated upright in the ICU bed in no apparent distress, denies any dizziness, noting he is hungry. Skin: normal color, turgor, no icterus, cyanosis. HEENT: AT/NC, EOMI, PERRLA, moderately dry MM, no carotid bruits or JVD noted. Lungs: CTA bilaterally, moderate effort, mild decrease BL bases, no rales, ronchi or wheezing. Heart: Currently improved, regular rate and rhythm; no gallop, rub audible. Abdomen: soft, overweight, NTTP, ND, normal BS, no HSM. Extremities: no cyanosis, clubbing, or edema. Neurological: patient awake, alert, oriented x 3; cognitive function intact; pupils equally reactive to light and accomodation; cranial nerves II-XII grossly normal, moving all 4 extremities, no focal deficits, strength moderately global decrease secondary to acute presentation. Psychiatric: affect appears mildly fatigued, remains talkative, no acute evidence of depressive or anxiety feelings. - Physical Exam Vital Signs Temp Pulse Resp BP Pulse Ox 97.9 F 84 18 103/71 98 03/23/19 18:44 03/23/19 20:13 03/23/19 20:13 03/23/19 20:19 03/23/19 20:13 Oxygen Flow Rate (L/min) 2 Oxygen Delivery Method Room Air Weight: 253 lb 4.978 oz Body Mass Index (BMI) 32.5 Laboratory Tests Past 24 Hrs 03/23/19 03/23/19 03/23/19 19:00 19:00 19:00 WBC 13.1 H RBC 5.11 Hgb 17.1 H Hct 50.5 MCV 98.8 H MCH 33.5 H MCHC 33.9 RDW Std Deviation 47.8 H RDW Coeff of Priscila 13.1 Plt Count 321 MPV 9.9 Immature Gran % (Auto) 0.400 Neut % (Auto) 63.7 Lymph % (Auto) 20.5 [place] % (Auto) 8.3 Eos % (Auto) 6.3 H Baso % (Auto) 0.8 Absolute Neuts (auto) 8.3 H Absolute Lymphs (auto) 2.68 Nucleated RBC % 0 PT 13.0 INR 1.0 APTT 32.7 Sodium 139 Potassium 3.6 Chloride 106 Carbon Dioxide 28.0 Anion Gap 5 BUN 25 H Creatinine 1.47 H Estim Creat Clear Calc 54.37 Est GFR (MDRD) Af Amer 61 Est GFR (MDRD) Non-Af 50 L BUN/Creatinine Ratio 17.0 Glucose 136 H Calcium 9.7 Troponin I 0.078 H Assessment/Plan All Active Problems (Last Reviewed 04/06/18 @ 09:15 by Fish Torres MD) Sustained ventricular tachycardia (Acute) History of coronary artery stent placement (Resolved 10/29/17) STEMI (ST elevation myocardial infarction) (Resolved) The patient is a 68 y/o M w/ PMHx: Hypertension, Hyperlipidemia, Hx Inferior DC/STEMI, CAD s/p PCI, ongoing Tobacco use with cigarettes, Hx Left subclavian artery stenosis, Diabetes mellitus type II, 10/29/17 Inferior STEMI w/ noted ongoing malaise, fatigue x 2 to 3 days with more prominent onset dizziness, intermittent however more constant starting later in the day. 1. Dizziness secondary to sustained ventricular tachycardia with indeterminate cardiac enzyme: Work-up in the ED included initial vital signs in the emergency room included T 97.9, heart rate initially 206, BP 170/151, respiratory rate 23, 97% on 2 L nasal cannula with then notable hypotension with BP down to 63/46 wanting cardioversion with vital signs following improved with heart rate 84, BP 102/71, respiratory rate 18, 98% on room air, CBC with WBC 13.1, hemoglobin 17.1, platelet 321 with left shift, unremarkable coags, BMP with BUN/creatinine 5/1.47, glucose 136, troponin 0.078, chest x-ray with no acute cardia pulmonary process, initial presentation with wide-complex tachycardia with following ministration Versed, fentanyl and cardioversion with 200 J plus initiation of amiodarone bolus and drip transition to sinus rhythm. In the ED as noted patient was given Versed and fentanyl with cardioversion with 200 J following as well as initiation of amiodarone bolus and drip per discussion with cardiology. Will admit to the ICU, continue Cardiology consultation and request ICU consultation, place on a monitored bed to assure no acute myocardial infarction with serial cardiac enzymes and EKGs, obtain ECHO, continue amiodarone bolus and once completed transition to continuous drip, hold parameters otherwise on BP regimen, obtain mag and replete as needed. Potential plan for cardiac catheterization Monday. ASA, NG, morphine. 2. Acute kidney injury: Secondary to acute presentation #1, decreased recent intake with malaise over the last 2-3 days. Admission BUN/Cr 25/1.47, prior baseline creatinine noted to be 0.9-1.0. Will hydrate, hold nephrotoxic medications and repeat chemistry in AM. If no improvement would plan FeNa and renal US assessment. 3. CAD: History STEMI, 10/2017 Cardiac catheterization with total occlusion distal RCA, heavily calcified, 70% lesion noted in the mid RCA noted to be a tortuous vessel, balloon angioplasty and stent placement performed in the distal RCA, mid right coronary artery lesion treated using drug-eluting stent, distal part of the stent was postdilated, given acute presentation #1, likely plan cardiac catheterization Monday, maintain on aspirin, Brilinta, statin, metoprolol with hold parameters. 4. Diabetes mellitus type II: Not on regimen, will obtain hemoglobin A1c, ADA diet, accu checks w/ ISS, nutrition consulted for education and teaching. 5. Hypertension: Holding patient home lisinopril, hydrochlorthiazide given mild DAVE, resume once appropriate, maintain on metoprolol, PRN IV hydralazine 6. Hyperlipidemia: Continue home statin regimen. 7. Tobacco Abuse: Encouraged cessation, inpatient consultation per RT, NR if desired. 8. DVT prophylaxis: SCDs, heparin. 9. Full CODE STATUS. Code Visit Inpatient E&M: 52755 Init Hosp L3
--- NOTE | 2019-03-23 20:46 | EKG12_ITS ---
Test Reason : CP Blood Pressure : / mmHG Vent. Rate : 208 BPM Atrial Rate : 208 BPM P-R Int : 000 ms QRS Dur : 112 ms QT Int : 240 ms P-R-T Axes : 000 073 251 degrees QTc Int : 446 ms Ventricular tachycardia Abnormal ECG Confirmed by KAILASH WILSON, CHRISTOPHER ([id number]), news assignment editor GAY JEREZ ([id number]) on 03/26/2019 11:45:27 AM Referred By: JULIO Confirmed By:ISREAL LINDER MD
--- NOTE | 2019-03-23 20:55 | ECHOCS_ITS ---
Reason For Study: Arrhythmia Procedure This was a 2D Doppler, Color Flow transthoracic echocardiogram. Contrast injection was performed. The study was technically difficult. Exam performed portable in ICU/CCU. Left Ventricle Normal LV size. The estimated ejection fraction is 53 %. Left ventricular systolic function is lower limits of normal. Stage 2 diastolic dysfunction. Infero-Basal: Hypokinetic. Right Ventricle Normal RV size. Normal systolic function. Atria The left atrium is moderately enlarged. Normal right atrium. Mitral Valve Normal mitral valve. Tricuspid Valve Normal tricuspid valve. Aortic Valve Trisinus/trileaflet aortic valve. Mild focal aortic valve thickening. Pulmonic Valve Normal pulmonic valve. Great Vessels Mildly dilated aortic root. Calcified aortic root. The pulmonary artery is normal size. Normal inferior vena cava. Pericardium/Pleural No pericardial effusion. Medication Diluted definity 3ml given slow IV push to enhance endocardial definition. MMode/2D Measurements & Calculations LVIDd: 5.3 cm IVSd: 1.0 cm Ao root diam: 4.0 cm LVIDs: 3.9 cm LVPWd: 2.0 cm LA dimension: 3.9 cm FS: 27.6 % LAV(MOD-bp): 105.3 ml LVAd ap4: 40.7 cm2 SV(MOD-sp4): 87.2 ml LAV(MOD-bp) Indexed: 44.6 ml/m2 EDV(MOD-sp4): 168.2 ml LAV(MOD-sp2): 100.6 ml EDV(sp4-el): 177.7 ml LAV(MOD-sp4): 105.2 ml LVAs ap4: 24.5 cm2 ESV(MOD-sp4): 80.9 ml ESV(sp4-el): 78.3 ml EF(MOD-sp4): 51.9 % EF(sp4-el): 55.9 % SV(sp4-el): 99.4 ml LA A4 area: 29.2 cm2 RA A4 area: 16.0 cm2 Time Measurements MV dec time: 0.19 sec Doppler Measurements & Calculations MV E max caden: 110.9 cm/sec Lat Peak E' Caden: 8.5 cm/sec Med Peak E' Caden: 6.3 cm/sec MV A max caden: 85.0 cm/sec E/E' lat: 13.0 E/E' med: 17.7 MV E/A: 1.3 MV V2 max: 115.4 cm/sec MV P1/2t max caden: 116.1 cm/sec Ao V2 max: 140.7 cm/sec MV max P.3 mmHg MV P1/2t: 73.8 msec Ao max P.9 mmHg MV V2 mean: 58.5 cm/sec MV mean P.7 mmHg MV dec slope: 460.6 cm/sec2 MV V2 VTI: 25.4 cm MVA(P1/2t): 3.0 cm2 LV V1 max: 113.1 cm/sec MR max caden: 486.6 cm/sec PA V2 max: 57.4 cm/sec LV V1 max P.1 mmHg MR max P.7 mmHg MR mean caden: 388.6 cm/sec MR mean P.7 mmHg MR VTI: 202.4 cm TR max caden: 261.1 cm/sec TR max P.3 mmHg Interpretation Summary Normal LV size. The estimated ejection fraction is 53 %. Left ventricular systolic function is lower limits of normal. Stage 2 diastolic dysfunction. Contrast injection was performed. Ordering Physician: Damaris Harrison Referring Physician: Jarad Mcwilliams Chi Performed By: Gorge Arias RCS
[2019-03-23 21:27] LABS: Magnesium 1.7 mg/dL (1.6-2.6); Thyroid Stim Hormone (TSH) 1.41 uIU/mL (0.358-3.74)
[2019-03-23 21:31] LABS: Bedside Glucose 128 mg/dL (70-110)
[2019-03-23] MEDS: 0.9% Normal Saline 1,000 ML 125 ML IV (21:33)
[2019-03-23] MEDS: TICAGRELOR 90 MG TABLET PO (21:34)
[2019-03-23] MEDS: Heparin Injection (Vial) 5,000 UNIT/ML VIAL 5000 UNIT SC (21:35)
[2019-03-23] MEDS: Latanoprost 0.005% 1 Bottle 1 DRP LEFT EYE (21:35)
[2019-03-23] MEDS: Metoprolol Tartrate 50 MG Tablet PO (21:35)
[2019-03-23] MEDS: MELATONIN 3 MG TABLET PO (23:28)
[2019-03-24] VITALS (29 sets, daily range): BP systolic 102–187; BP diastolic 39–126; PULSE 60–82; RESP 12–26; TEMP 36.3–36.8; O2SAT 92–98
[2019-03-24 03:56] LABS: Absolute Lymphocyte Count 1.69 X10^3/uL (0.83-4.51); Basophil# 0.05 X10^3/uL; Basophil% 0.6 % (0-1); Eosinophil# 0.52 X10^3/uL; Eosinophils% 5.8 % (0-5); Hematocrit 41.3 % (40-54); Hemoglobin 14.3 g/dL (13.0-16.5); Lymphocyte # 1.69 X10^3/ul (4.0); Lymphocyte % 18.8 % (19-41); Mean Corp Hgb Conc 34.6 g/dL (32-36); Mean Corpuscular Hgb 33.9 pg (27.0-32.0); Mean Corpuscular Volume 97.9 fL (80-94); Mean Platelet Vol. 9.9 fl (6.2-12.0); Monocyte# 0.74 X10^3/uL; Monocyte% 8.2 % (0-10); NRBC Flagged by Analyzer 0 % (0-5); Neutrophil # 5.96 X10^3/uL (2.7-7.7); Neutrophil % 66.2 % (47-70); Platelet Count 228 K/mm3 (150-450); RBC Distribution Width CV 13.2 % (11.6-14.6); RBC Distribution Width SD 47.7 fl (35.1-43.9); Red Blood Count 4.22 M/mm3 (4.6-6.2)
[2019-03-24 04:10] LABS: Anion Gap 7 (5-15); BUN 22 mg/dL (7-18); BUN/Creat Ratio 21.2 RATIO (10-20); Calcium,Total 8.2 mg/dL (8.5-10.1); Chloride 110 mmol/L (98-107); Creatinine, Serum 1.04 mg/dL (0.70-1.30); EST Glomerular Filtration Rate 75 mL/min (>60); Est Glom Filt Rate - Afr Amer 91 mL/min (>60); Estimated Creatinine Clearance 81.14 ml/min; Glucose 115 mg/dL (74-106); Potassium 3.4 mmol/L (3.5-5.1); Sodium Level 142 mmol/L (136-145)
[2019-03-24] MEDS: 0.9% Normal Saline 1,000 ML 125 ML IV (05:39)
--- NOTE | 2019-03-24 05:55 | EKG12_ITS ---
Test Reason : AM EKG Blood Pressure : / mmHG Vent. Rate : 064 BPM Atrial Rate : 064 BPM P-R Int : 194 ms QRS Dur : 106 ms QT Int : 450 ms P-R-T Axes : 068 001 037 degrees QTc Int : 464 ms Normal sinus rhythm Normal ECG Confirmed by ANDREA WILSON, PAOLA ([id number]), mapping editor BRENDA ARSHAD ([id number]) on 03/27/2019 2:34:41 PM Referred By: ROBERT Confirmed By:PAOLA MENDEZ MD
[2019-03-24 07:17] LABS: Hemoglobin A1c 6.5 % (4.2-6.3)
[2019-03-24] MEDS: Metoprolol Tartrate 50 MG Tablet PO ×2 (09:38→22:06)
[2019-03-24] MEDS: TICAGRELOR 90 MG TABLET PO ×2 (09:38→22:06)
[2019-03-24] MEDS: Heparin Injection (Vial) 5,000 UNIT/ML VIAL 5000 UNIT SC ×2 (09:39→22:06)
[2019-03-24] MEDS: Aspirin E.C. 81 MG Tablet PO (09:39)
--- NOTE | 2019-03-24 16:53 | CON.PCM_ITS ---
Problem List (1) Sustained ventricular tachycardia Status: Acute Reason for Consult Date of Consultation: 03/24/19 History of Present Illness: The patient is a 68 y/o M w/ PMHx: Hypertension, Hyperlipidemia, Hx Inferior [place]/STEMI, CAD s/p PCI, ongoing Tobacco use with cigarettes, Hx Left subclavian artery stenosis, Diabetes mellitus type II, 10/29/17 Inferior STEMI w/ noted ongoing malaise, fatigue x 2 to 3 days with more prominent onset dizziness, intermittent however more constant starting later in the day on day of ED presentation prompting eventual ED presentation with no palpitations, chest discomfort, dyspnea associated but did note that during these events he had notable diaphoresis. In the emergency room he was found to have sustained ventricular tachycardia with a heart rate over 200 bpm. He was electrically cardioverted. His potassium was 3.6 magnesium was 1.7. Patient has been doing well overnight. At the time of his [place] in October 2017 he had bilateral arm pain and then subsequently to a milder extent some chest discomfort. He does not have the symptoms at this time. Review of systems: All systems reviewed. All else is negative except that in the HPI. Past Medical History Allergies/Adverse Reactions: Allergies No Known Allergies Allergy (Verified 03/23/19 18:44) Home Medications: Ambulatory Orders Medication Instructions Recorded Aspirin E.C. [Ecotrin] 81 mg PO DAILY@0800 #30 tab 10/30/17 lisinopril 20 1 tab PO BID 90 Days #180 tab 11/16/17 mg-hydrochlorothiazide 12.5 mg tablet metoprolol tartrate 50 mg tablet 50 mg PO BID 90 Days #180 tab 11/16/17 Multivitamin [Multiple Vitamins] 1 ea PO DAILY 03/25/18 atorvastatin 40 mg tablet 40 mg PO QODAY 04/06/18 B-complex with vitamin C capsule 1 cap PO DAILY 10/03/18 ticagrelor 90 mg tablet 90 mg PO BID #180 tab 11/05/18 Brimonidine Tartrate [Alphagan P] 1 drp LEFT EYE BID 03/23/19 Latanoprost 1 drp LEFT EYE QHS 03/23/19 Past Medical History (Chronic Problems): Chronic Problems (Last Reviewed 04/06/18 @ 09:15 by Fish Torres MD) Essential (primary) hypertension (Chronic) 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 Psychiatric History: No pertinent psych hx - *Family History Maternal Family History: Family History (Last Reviewed 04/06/18 @ 09:15 by Fish Torres MD) Father Negative FH of ASCVD History Items: Hypertension Paternal Family History: Family History (Last Reviewed 04/06/18 @ 09:15 by Fish Torres MD) Father Negative FH of ASCVD History Items: Hypertension Lives: Spouse/ Significant Other Smoking Status: Current every day smoker - Patient currently smoking proximal me 10 cigarettes/day. Tobacco Use: Cigarettes Alcohol: Occasional Drugs: None Objective: Vital Signs Temp Pulse Resp BP Pulse Ox 98.0 F 63 20 H 136/71 H 96 03/24/19 13:22 03/24/19 15:08 03/24/19 15:00 03/24/19 15:00 03/24/19 15:00 Oxygen Flow Rate (L/min) 2 Oxygen Delivery Method Room Air Weight: 239 lb 6.752 oz Body Mass Index (BMI) 28.2 Intake and Output for Last 24 Hours 03/22/19 03/23/19 03/24/19 23:59 23:59 23:59 Intake Total 360 / 360 2747.15 / 2747.15 Output Total 325 / 325 425 / 425 Balance 35 / 35 2322.15 / 2322.15 General: Awake, Alert, Oriented x 3 HEENT: Atraumatic Oral: Moist Mucosa Neck: Supple Lungs: Clear to auscultation Cardiovascular: Normal S1, Normal S2 Abdomen: Soft Extremities: No edema Skin: No Rashes Neurological: No Focal Motor or Sensory Deficit Psych/Mental Status: Appropriate 03/23/19 19:00: WBC 13.1 H, RBC 5.11, Hgb 17.1 H, Hct 50.5, MCV 98.8 H, MCH 33.5 H, MCHC 33.9, Plt Count 321, MPV 9.9, Immature Gran % (Auto) 0.400, Neut % (Auto) 63.7, Lymph % (Auto) 20.5, [place] % (Auto) 8.3, Eos % (Auto) 6.3 H, Baso % (Auto) 0.8, Absolute Neuts (auto) 8.3 H, Nucleated RBC % 0 03/23/19 19:00: PT 13.0, INR 1.0, APTT 32.7 03/23/19 19:00: Sodium 139, Potassium 3.6, Chloride 106, Carbon Dioxide 28.0, Anion Gap 5, BUN 25 H, Creatinine 1.47 H, Est GFR (MDRD) Af Amer 61, Est GFR (MDRD) Non-Af 50 L, BUN/Creatinine Ratio 17.0, Glucose 136 H, Calcium 9.7, Troponin I 0.078 H 03/23/19 19:00: Magnesium 1.7 03/24/19 00:30: Troponin I 0.099 H 03/24/19 03:30: WBC 9.0, RBC 4.22 L, Hgb 14.3, Hct 41.3, MCV 97.9 H, MCH 33.9 H, MCHC 34.6, Plt Count 228, MPV 9.9, Immature Gran % (Auto) 0.400, Neut % (Auto) 66.2, Lymph % (Auto) 18.8 L, [place] % (Auto) 8.2, Eos % (Auto) 5.8 H, Baso % (Auto) 0.6, Absolute Neuts (auto) 6.0, Nucleated RBC % 0 03/24/19 03:30: Sodium 142, Potassium 3.4 L, Chloride 110 H, Carbon Dioxide 25.0, Anion Gap 7, BUN 22 H, Creatinine 1.04, Est GFR (MDRD) Af Amer 91, Est GFR (MDRD) Non-Af 75, BUN/Creatinine Ratio 21.2 H, Glucose 115 H, Calcium 8.2 L 03/24/19 03:30: Hemoglobin A1c 6.5 H 03/24/19 03:30: Troponin I 0.084 H 03/24/19 06:45: Troponin I 0.078 H Rhythm: EKG: ECHO: Stress Test: Cardiac Cath: PCI: CT Surgery: Holter monitor: EPS: PPM: CXR: Chest CT Scan: Assessment/Plan 1. Ventricular tachycardia: Patient had a potassium of 3.4 today and was given potassium chloride. In this patient with ischemic heart disease and stent done last year we should rule out ischemia as the cause for his sustained ventricular tachycardia. I discussed treatment options and the risks and benefits with the patient in detail. We will proceed with coronary angiography tomorrow. If he does not have significant CAD then he would probably require a defibrillator.
--- NOTE | 2019-03-24 17:26 | PCM.PROGNOTE ---
Patient Problems: Active and Suspected Problems (Last Reviewed 04/06/18 @ 09:15 by Fish Torres MD) Sustained ventricular tachycardia (Acute) Subjective: Patient was seen and examined today in the ICU, I talked at length with the patient and his . He was seen in the ER yesterday for complaints of rapid heartbeat, he was found to have ventricular tachycardia at a rate over 200, he underwent cardioversion and returned to normal sinus rhythm was placed on amiodarone drip. Patient was admitted to the ICU. Patient has a history of coronary artery disease with stent placement, he continues to smoke however. I talked briefly with cardiology today, the plan is for the patient undergo a cardiac catheterization to rule out occlusive coronary disease. - Physical Exam General: Alert, Oriented x3, Cooperative, No apparent distress, Well developed, Well nourished HEENT: Atraumatic, PERRLA, EOMI, Normocephalic Oral: Moist Mucosa Neck: Supple, Trachea Midline, Thyroid Normal Size and Texture Lungs: Clear to auscultation, Normal air movement, No rhonchi, No wheeze, No rales Cardiovascular: Regular rate, Regular Rhythm, Normal S1, Normal S2, No murmurs, - - Frequent ectopic activity is noted on examination including runs of ventricular bigeminy. Abdomen: Bowel Sounds Present, Soft, Non Tender, Non-Distended Extremities: No clubbing, No cyanosis, No edema, Capillary Refill Less than 3 Seconds Skin: No rashes, No breakdown Musculoskeletal: No Tenderness to Palpation of Joints or Extremities, No Muscle Wasting Neurological: Cranial nerves II-XII grossly intact, Neuro grossly intact, Sensory exam intact to light touch and pain, Coordination normal Psych/Mental Status: Normal Affect, Appropriate, Alert and oriented to time, place, person, mood and affect Vital Signs Temp Pulse Resp BP Pulse Ox 98.0 F 63 20 H 136/71 H 96 03/24/19 13:22 03/24/19 15:08 03/24/19 15:00 03/24/19 15:00 03/24/19 15:00 Oxygen Flow Rate (L/min) 2 Oxygen Delivery Method Room Air Weight: 108.6 kg Body Mass Index (BMI) 28.2 Intake and Output for Last 24 Hours 03/22/19 03/23/19 03/24/19 23:59 23:59 23:59 Intake Total 360 / 360 2747.15 / 2747.15 Output Total 325 / 325 1050 / 1050 Balance 35 / 35 1697.15 / 1697.15 Laboratory Tests Past 24 Hrs 03/23/19 03/23/19 03/23/19 19:00 19:00 19:00 WBC 13.1 H RBC 5.11 Hgb 17.1 H Hct 50.5 MCV 98.8 H MCH 33.5 H MCHC 33.9 RDW Std Deviation 47.8 H RDW Coeff of Priscila 13.1 Plt Count 321 MPV 9.9 Immature Gran % (Auto) 0.400 Neut % (Auto) 63.7 Lymph % (Auto) 20.5 [place] % (Auto) 8.3 Eos % (Auto) 6.3 H Baso % (Auto) 0.8 Absolute Neuts (auto) 8.3 H Absolute Lymphs (auto) 2.68 Nucleated RBC % 0 PT 13.0 INR 1.0 APTT 32.7 Sodium 139 Potassium 3.6 Chloride 106 Carbon Dioxide 28.0 Anion Gap 5 BUN 25 H Creatinine 1.47 H Estim Creat Clear Calc 54.37 Est GFR (MDRD) Af Amer 61 Est GFR (MDRD) Non-Af 50 L BUN/Creatinine Ratio 17.0 Glucose 136 H Hemoglobin A1c Calcium 9.7 Magnesium Troponin I 0.078 H TSH 03/23/19 03/24/19 03/24/19 19:00 00:30 03:30 WBC 9.0 RBC 4.22 L Hgb 14.3 Hct 41.3 MCV 97.9 H MCH 33.9 H MCHC 34.6 RDW Std Deviation 47.7 H RDW Coeff of Priscila 13.2 Plt Count 228 MPV 9.9 Immature Gran % (Auto) 0.400 Neut % (Auto) 66.2 Lymph % (Auto) 18.8 L [place] % (Auto) 8.2 Eos % (Auto) 5.8 H Baso % (Auto) 0.6 Absolute Neuts (auto) 6.0 Absolute Lymphs (auto) 1.69 Nucleated RBC % 0 PT INR APTT Sodium Potassium Chloride Carbon Dioxide Anion Gap BUN Creatinine Estim Creat Clear Calc Est GFR (MDRD) Af Amer Est GFR (MDRD) Non-Af BUN/Creatinine Ratio Glucose Hemoglobin A1c Calcium Magnesium 1.7 Troponin I 0.099 H TSH 1.41 03/24/19 03/24/19 03/24/19 03:30 03:30 03:30 WBC RBC Hgb Hct MCV MCH MCHC RDW Std Deviation RDW Coeff of Priscila Plt Count MPV Immature Gran % (Auto) Neut % (Auto) Lymph % (Auto) [place] % (Auto) Eos % (Auto) Baso % (Auto) Absolute Neuts (auto) Absolute Lymphs (auto) Nucleated RBC % PT INR APTT Sodium 142 Potassium 3.4 L Chloride 110 H Carbon Dioxide 25.0 Anion Gap 7 BUN 22 H Creatinine 1.04 Estim Creat Clear Calc 81.14 Est GFR (MDRD) Af Amer 91 Est GFR (MDRD) Non-Af 75 BUN/Creatinine Ratio 21.2 H Glucose 115 H Hemoglobin A1c 6.5 H Calcium 8.2 L Magnesium Troponin I 0.084 H TSH 03/24/19 06:45 WBC RBC Hgb Hct MCV MCH MCHC RDW Std Deviation RDW Coeff of Priscila Plt Count MPV Immature Gran % (Auto) Neut % (Auto) Lymph % (Auto) [place] % (Auto) Eos % (Auto) Baso % (Auto) Absolute Neuts (auto) Absolute Lymphs (auto) Nucleated RBC % PT INR APTT Sodium Potassium Chloride Carbon Dioxide Anion Gap BUN Creatinine Estim Creat Clear Calc Est GFR (MDRD) Af Amer Est GFR (MDRD) Non-Af BUN/Creatinine Ratio Glucose Hemoglobin A1c Calcium Magnesium Troponin I 0.078 H TSH POC Glucose 03/23/19 21:22 POC Glucose 128 H Medical Necessity - Tobacco Use Smoking Status: Current every day smoker - Patient currently smoking proximal me 10 cigarettes/day. Tobacco Use: Cigarettes Assessment/Plan All Active Problems (Last Reviewed 04/06/18 @ 09:15 by Fish Torres MD) Sustained ventricular tachycardia (Acute) History of coronary artery stent placement (Resolved 10/29/17) STEMI (ST elevation myocardial infarction) (Resolved) #1 sustained ventricular tachycardia-patient will continue to be monitored in ICU, he will undergo cardiac catheterization tomorrow. #2 coronary artery disease #3 hypokalemia-patient was given oral potassium today #4 essential hypertension #5 noncompliance with medical regimen-patient continues to smoke despite a history of coronary artery disease #6 hyperlipidemia #7 intermediate troponin elevation-etiology unclear Code Visit Inpatient E&M: 89140 Subs Hosp L2
[2019-03-24] MEDS: BRIMONIDINE TARTRATE 5 ML DROPS OP ×2 (17:36→22:08)
[2019-03-24] MEDS: ALPRAZolam 0.5 MG Tablet PO (22:04)
[2019-03-24] MEDS: Latanoprost 0.005% 1 Bottle 1 DRP LEFT EYE (22:05)
[2019-03-24] MEDS: Atorvastatin Calcium 40 MG Tablet PO (22:06)
[2019-03-24] MEDS: MELATONIN 3 MG TABLET PO (22:07)
[2019-03-25] VITALS (23 sets, daily range): BP systolic 104–170; BP diastolic 39–98; PULSE 49–87; RESP 13–24; TEMP 36.5–36.8; O2SAT 95–100
[2019-03-25] MEDS: 0.9% NaCl Peripheral Flush Adult/Peds IV (04:36)
[2019-03-25 04:47] LABS: Absolute Lymphocyte Count 1.62 X10^3/uL (0.83-4.51); Absolute Neutrophil Count 6.5 X10^3/uL (2.0-7.7); Basophil# 0.05 X10^3/uL; Basophil% 0.5 % (0-1); Eosinophil# 0.47 X10^3/uL; Hematocrit 42.5 % (40-54); Hemoglobin 14.7 g/dL (13.0-16.5); Lymphocyte # 1.62 X10^3/ul (4.0); Lymphocyte % 17.4 % (19-41); Mean Corp Hgb Conc 34.6 g/dL (32-36); Mean Corpuscular Hgb 33.9 pg (27.0-32.0); Mean Corpuscular Volume 97.9 fL (80-94); Monocyte# 0.62 X10^3/uL; Monocyte% 6.7 % (0-10); NRBC Flagged by Analyzer 0 % (0-5); Neutrophil # 6.53 X10^3/uL (2.7-7.7); Neutrophil % 70.2 % (47-70); Platelet Count 212 K/mm3 (150-450); RBC Distribution Width SD 46.5 fl (35.1-43.9); Red Blood Count 4.34 M/mm3 (4.6-6.2); White Blood Count 9.3 K/mm3 (4.4-11.0)
[2019-03-25 05:07] LABS: Anion Gap 9 (5-15); BUN 11 mg/dL (7-18); BUN/Creat Ratio 13.6 RATIO (10-20); Calcium,Total 8.5 mg/dL (8.5-10.1); Chloride 111 mmol/L (98-107); Creatinine, Serum 0.81 mg/dL (0.70-1.30); EST Glomerular Filtration Rate 100 mL/min (>60); Est Glom Filt Rate - Afr Amer 121 mL/min (>60); Estimated Creatinine Clearance 104.18 ml/min; Glucose 125 mg/dL (74-106); Potassium 3.6 mmol/L (3.5-5.1); Sodium Level 144 mmol/L (136-145)
[2019-03-25 05:08] LABS: International Normalized Ratio 1.1; Partial Thromboplast Time 31.4 Seconds (24.1-36.2); Prothrombin Time (Protime)PT. 13.9 SECONDS (11.7-14.9)
[2019-03-25] MEDS: Metoprolol Tartrate 50 MG Tablet PO (07:45)
[2019-03-25] MEDS: TICAGRELOR 90 MG TABLET PO (07:45)
[2019-03-25] MEDS: Aspirin E.C. 81 MG Tablet PO (07:45)
--- NOTE | 2019-03-25 11:13 | CASEMGMT ---
RN CM Assessment Presentation: Sustained VTach. For Heart Cath. Intro role of CM and purpose of RN CM assessment to patient in room. Pt is awake, alert, able to participate in assessment, however is reticent to provide detailed information. Pt states he lives independently at home. Demographics, PCP and Pharmacy verified. Nurse states pt had falls at home. Pt would not discuss this, stating he walks fine at home. PCP: Dr. Mcwilliams Specialists: Dr. Hernandez Preferred Pharmacy: [facility], and [facility] for [facility] Term. Insurance: [facility]/ [employer] for life Prescription Benefit: yes LNOK: Katherine Stacy, Living Arrangements: Lives independently with . States he is independent in ADLs. Transportation: pt and drive DME: has canes at home, pt states he does not use HHC: none Patient DC goals: Home DC PLAN: anticipate home on dc. Pt voiced no concerns at this time. CM available if dc needs arise. Glenis TROTTERN RN ACM
--- NOTE | 2019-03-25 12:38 | PN.CARD_ITS ---
Subjectve: Patient seen and evaluated. Objective: Vital Signs Temp Pulse Resp BP Pulse Ox 98.2 F 63 21 H 161/83 H 97 03/25/19 08:00 03/25/19 11:00 03/25/19 11:00 03/25/19 11:00 03/25/19 11:00 Oxygen Flow Rate (L/min) 2 Oxygen Delivery Method Room Air Weight: 236 lb 11.2 oz Body Mass Index (BMI) 28.2 Intake and Output for Last 24 Hours 03/23/19 03/24/19 03/25/19 23:59 23:59 23:59 Intake Total 360 / 360 3210.33 / 3210.33 357.14 / 357.14 Output Total 325 / 325 1700 / 1700 1250 / 1250 Balance 35 / 35 1510.33 / 1510.33 -892.86 / -892.86 General: Awake, Alert, Oriented x 3 HEENT: PERRL, EOMI, Sclera Non Icteric Neck: Supple, Good ROM, No Lymph Node Enlargement Lungs: Clear to auscultation Cardiovascular: Regular Rhythm, Normal S1, Normal S2, No Murmurs, No Rubs, No Gallops Vascular: No Carotid Bruits, Normal Femoral Pulses, Normal Radial Pulses, Normal Dorsalis Pedal Pulse, Normal Posterior Tibial Pulses Abdomen: Bowel Sounds Present, Soft, Non Tender, No HSM, No Organomegaly Extremities: No Cyanosis, No Clubbing, No edema Musculoskeletal: No Erythema Skin: No Rashes Lymphatic: No Lymph Node Enlargement Neurological: No Focal Motor or Sensory Deficit 03/25/19 04:35: WBC 9.3, RBC 4.34 L, Hgb 14.7, Hct 42.5, MCV 97.9 H, MCH 33.9 H, MCHC 34.6, Plt Count 212, MPV 10.0, Immature Gran % (Auto) 0.200, Neut % (Auto) 70.2 H, Lymph % (Auto) 17.4 L, [place] % (Auto) 6.7, Eos % (Auto) 5.0, Baso % (Auto) 0.5, Absolute Neuts (auto) 6.5, Nucleated RBC % 0 03/25/19 04:35: PT 13.9, INR 1.1, APTT 31.4 03/25/19 04:35: Sodium 144, Potassium 3.6, Chloride 111 H, Carbon Dioxide 24.0, Anion Gap 9, BUN 11, Creatinine 0.81, Est GFR (MDRD) Af Amer 121, Est GFR (MDRD) Non-Af 100, BUN/Creatinine Ratio 13.6, Glucose 125 H, Calcium 8.5 Rhythm: EKG: ECHO: Stress Test: Cardiac Cath: PCI: CT Surgery: Holter monitor: EPS: PPM: CXR: Chest CT Scan: Medical Necessity - Tobacco Use Smoking Status: Current every day smoker - Patient currently smoking proximal me 10 cigarettes/day. Tobacco Use: Cigarettes Assessment/Plan 1. Coronary artery disease. * Patient underwent cardiac catheterization which demonstrated mild left main coronary artery, Significant 80% proximal left anterior descending artery. Left circumflex artery with first obtuse marginal branch with 70 to 80% stenosis. Dominant large right coronary artery with post stent 80% stenosis and distal 70% stenosis, Preserved versus low normal left ventricular ejection fraction. Based on the above angiographic findings after discussion with both interventionalist it probably would be a better option to offer coronary artery bypass surgery. 2. Ventricular tachycardia * Patient with ventricular tachycardia which is likely polymorphic and ischemic. My recommendation would be to continue current dose of amiodarone. * * Will arrange transfer to a tertiary care facility later on today.
--- NOTE | 2019-03-25 12:41 | PN_ITS ---
Patient Problems: Active and Suspected Problems (Last Reviewed 04/06/18 @ 09:15 by Fish Torres MD) Sustained ventricular tachycardia (Acute) Subjective: No chest pain. No palpitations. Vitals/I&O's: Vital Signs Temp Pulse Resp BP Pulse Ox 36.8 C 63 21 H 161/83 H 97 03/25/19 08:00 03/25/19 11:00 03/25/19 11:00 03/25/19 11:00 03/25/19 11:00 Oxygen Flow Rate (L/min) 2 Oxygen Delivery Method Room Air Weight: 107.365 kg Body Mass Index (BMI) 28.2 Intake and Output for Last 24 Hours 03/23/19 03/24/19 03/25/19 23:59 23:59 23:59 Intake Total 360 / 360 3210.33 / 3210.33 357.14 / 357.14 Output Total 325 / 325 1700 / 1700 1250 / 1250 Balance 35 / 35 1510.33 / 1510.33 -892.86 / -892.86 General: Alert, No apparent distress HEENT: Atraumatic, Normocephalic Oral: Moist Mucosa, No Gingival or Mucosal Lesions/ Ulcerations Neck: No Nodes, Thyroid Normal Size and Texture Lungs: Clear to auscultation, Normal air movement, No rhonchi, No wheeze Cardiovascular: Regular rate, Regular Rhythm, Normal S1, Normal S2 Abdomen: Bowel Sounds Present, Soft, Non Tender, Non-Distended, No Hepato- splenomegaly Extremities: No edema, No Calf Tenderness Skin: No rashes, No breakdown Psych/Mental Status: Normal Affect, Appropriate Laboratory Results 03/25/19 04:35: WBC 9.3, RBC 4.34 L, Hgb 14.7, Hct 42.5, MCV 97.9 H, MCH 33.9 H, MCHC 34.6, RDW Std Deviation 46.5 H, RDW Coeff of Priscila 13.0, Plt Count 212, MPV 10.0, Immature Gran % (Auto) 0.200, Neut % (Auto) 70.2 H, Lymph % (Auto) 17.4 L, [place] % (Auto) 6.7, Eos % (Auto) 5.0, Baso % (Auto) 0.5, Absolute Neuts (auto) 6.5, Absolute Lymphs (auto) 1.62, Nucleated RBC % 0 03/25/19 04:35: PT 13.9, INR 1.1, APTT 31.4 03/25/19 04:35: Sodium 144, Potassium 3.6, Chloride 111 H, Carbon Dioxide 24.0, Anion Gap 9, BUN 11, Creatinine 0.81, Estim Creat Clear Calc 104.18, Est GFR (MDRD) Af Amer 121, Est GFR (MDRD) Non-Af 100, BUN/Creatinine Ratio 13.6, Glucose 125 H, Calcium 8.5 Current Medications Acetaminophen (Tylenol) 650 mg PO Q6H PRN PRN PRN Reason: Non-cardiac pain (mod-severe) Hydrocodone Bitart/Acetaminophen ([place] 5mg-325mg) 1 - 2 tablet PO Q6H PRN PRN PRN Reason: MOD-SEVERE PAIN (-04/18) Al Hydroxide/Mg Hydroxide (Mylanta Ii) 15 - 30 ml PO Q4H PRN PRN PRN Reason: INDIGESTION Albuterol Sulfate (Ventolin Aerosols) 2.5 mg INHALATION Q2H PRN PRN PRN Reason: dyspnea, wheezing Alprazolam (Xanax) 0.5 mg PO QHS PRN PRN Reason: SLEEP Last Admin: 03/24/19 22:04 Dose: 0.5 mg Documented by: Aspirin (Ecotrin) 81 mg PO DAILY@0800 [facility] Last Admin: 03/25/19 07:45 Dose: 81 mg Documented by: Atorvastatin Calcium (Lipitor) 40 mg PO QODAY@2200 [facility] Last Admin: 03/24/19 22:06 Dose: 40 mg Documented by: Brimonidine Tartrate (Alphagan P) 0 ml OP BID [facility] Last Admin: 03/24/19 22:08 Dose: 5 ml Documented by: Dextrose (D50w Syringe) 0 gm IV X1 PRN; Protocol PRN Reason: Hypoglycemia Glucagon () 1 mg IM .X1 PRN PRN Reason: Hypoglycemia Heparin Sodium (Porcine) (Heparin Na) 5,000 unit SC Q12 [facility] Last Admin: 03/25/19 07:59 Dose: Not Given Documented by: Hydralazine HCl (Apresoline Iv) 10 mg IV Q4H PRN PRN PRN Reason: SBP > 160 Sodium Chloride () 1,000 mls @ 0 mls/hr IV .Q0M [facility] Amiodarone HCl/Dextrose (Nexterone 360 Mg/200 Ml Bag) 360 mg in 200 mls @ 16.667 mls/hr CONT INF .Q12H [facility] Last Infusion: 03/25/19 12:02 Dose: 0.5 mg/min, 16.7 mls/hr Documented by: Latanoprost (Xalatan Opthalmic) 1 drop LEFT EYE QHS [facility] Last Admin: 03/24/19 22:05 Dose: 1 drop Documented by: Magnesium Hydroxide (Milk Of Magnesia) 30 ml PO DAILY PRN PRN Reason: Constipation Melatonin (Melatonin) 3 mg PO QHS PRN PRN PRN Reason: INSOMNIA Last Admin: 03/24/19 22:07 Dose: 3 mg Documented by: Metoprolol Tartrate (Lopressor (Beta Marianne)) 50 mg PO BID [facility] Last Admin: 03/25/19 07:45 Dose: 50 mg Documented by: Morphine Sulfate () 1 - 2 mg IV Q4H PRN PRN PRN Reason: PAIN Nitroglycerin (Nitrostat) 0.4 mg SUBLINGUAL Q5M PRN PRN Reason: CARDIAC/CHEST PAIN Ondansetron HCl (Zofran) 4 mg IV Q8H PRN PRN PRN Reason: NAUSEA/VOMITING Sodium Chloride () 10 - 40 ml IV UD PRN PRN Reason: SALINE FLUSH Last Admin: 03/25/19 04:36 Dose: 10 ml Documented by: Ticagrelor (Brilinta) 90 mg PO BID [facility] Last Admin: 03/25/19 07:45 Dose: 90 mg Documented by: Medical Necessity - Tobacco Use Smoking Status: Current every day smoker - Patient currently smoking proximal me 10 cigarettes/day. Tobacco Use: Cigarettes Assessment/Plan All Active Problems (Last Reviewed 04/06/18 @ 09:15 by Fish Torres MD) Sustained ventricular tachycardia (Acute) History of coronary artery stent placement (Resolved 10/29/17) STEMI (ST elevation myocardial infarction) (Resolved) 1. Sustained VT: * resolved. For [facility] today * continue metoprolol * echo showed an EF of 53% 2. elevated troponins * peaked at 0.084 * for [facility] today Code Visit Inpatient E&M: 15616 Subs Hosp L2
--- NOTE | 2019-03-25 15:05 | DS.PCM_ITS ---
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 Electronically Signed: Brent Toro, at 19:54 EDT Tel , Service support , Fish Torres: cardiology Operations: None Procedures: None Summary of Care Provided: The patient is a 68 year old M presents with sustained VT. Slight elevation of troponins. [facility] today showed severe triple-vessel disease. It was recommended patient be transferred to tertiary facility for revascularization. Patient was accepted at [facility].[] Patient Problems: Active and Suspected Problems (Last Reviewed 04/06/18 @ 09:15 by Fish Torres MD) Sustained ventricular tachycardia (Acute) CAD (coronary artery disease) (Acute) - Physical Exam Vital Signs Temp Pulse Resp BP Pulse Ox 36.8 C 68 20 H 104/73 96 03/25/19 08:00 03/25/19 13:13 03/25/19 12:50 03/25/19 12:50 03/25/19 12:50 Oxygen Flow Rate (L/min) 2 Oxygen Delivery Method Room Air Weight: 107.365 kg Body Mass Index (BMI) 28.2 Intake and Output for Last 24 Hours 03/23/19 03/24/19 03/25/19 23:59 23:59 23:59 Intake Total 360 / 360 3210.33 / 3210.33 376.90 / 376.90 Output Total 325 / 325 1700 / 1700 1250 / 1250 Balance 35 / 35 1510.33 / 1510.33 -873.10 / -873.10 Laboratory Tests Past 24 Hrs 03/25/19 03/25/19 03/25/19 04:35 04:35 04:35 WBC 9.3 RBC 4.34 L Hgb 14.7 Hct 42.5 MCV 97.9 H MCH 33.9 H MCHC 34.6 RDW Std Deviation 46.5 H RDW Coeff of Priscila 13.0 Plt Count 212 MPV 10.0 Immature Gran % (Auto) 0.200 Neut % (Auto) 70.2 H Lymph % (Auto) 17.4 L [place] % (Auto) 6.7 Eos % (Auto) 5.0 Baso % (Auto) 0.5 Absolute Neuts (auto) 6.5 Absolute Lymphs (auto) 1.62 Nucleated RBC % 0 PT 13.9 INR 1.1 APTT 31.4 Sodium 144 Potassium 3.6 Chloride 111 H Carbon Dioxide 24.0 Anion Gap 9 BUN 11 Creatinine 0.81 Estim Creat Clear Calc 104.18 Est GFR (MDRD) Af Amer 121 Est GFR (MDRD) Non-Af 100 BUN/Creatinine Ratio 13.6 Glucose 125 H Calcium 8.5 Discharge Diet: Low fat/ Low Cholesterol Home Medications: Medications to take at Discharge Aspirin E.C. [Ecotrin] 81 mg PO DAILY@0800 #30 tab 10/30/17 lisinopril 20 mg-hydrochlorothiazide 12.5 mg tablet 1 tab PO BID 90 Days #180 tab 11/16/17 metoprolol tartrate 50 mg tablet 50 mg PO BID 90 Days #180 tab 11/16/17 Multivitamin [Multiple Vitamins] 1 ea PO DAILY 03/25/18 atorvastatin 40 mg tablet 40 mg PO QODAY 04/06/18 B-complex with vitamin C capsule 1 cap PO DAILY 10/03/18 ticagrelor 90 mg tablet 90 mg PO BID #180 tab 11/05/18 Brimonidine Tartrate [Alphagan P] 1 drp LEFT EYE BID 03/23/19 Latanoprost 1 drp LEFT EYE QHS 03/23/19 Primary Care Physician: Jarad Mcwilliams Chi, MD [Primary Care Provider] - Disposition: Acute care Hospital Minutes spent on discharge:: 35 Patient Condition:: Stable Medical Necessity - Tobacco Use Smoking Status: Current every day smoker - Patient currently smoking proximal me 10 cigarettes/day. Tobacco Use: Cigarettes Meaningful Use Info Meaningful Use Diagnoses (Choose all that apply): None applicable Code Visit Inpatient E&M: 97009 Disch Hosp
--- NOTE | 2019-04-04 09:58 | CL.D_ITS ---
Patient Name: RIGO DIAZ Study Date: 03/25/2019 Performing: Fish Torres MD Ht: 76 inches 193 cm : 1950 Wt: 236.2 lbs 107 kg Age: 68 Gender: male BSA: 2.38 PROCEDURE(S) PERFORMED [id number]/LV CLINICAL PROFILE AND INDICATIONS Indications: Suspected CAD, Cardiac Arrythmia Heart Failure: None Stress/Imaging Stress/Image Study Performed: No CAD Presentations: No Sxs, no angina. CONCLUSIONS Severe triple-vessel disease involving a previously stented right coronary artery with stenosis of a pproximately 80% noted in the area just after the stent. Proximal left anterior descending artery wi th 80% stenosis and a diffusely diseased left circumflex artery with proximal 70 to 80% stenosis. RECOMMENDATIONS Surgery consult for coronary revascularization DESCRIPTION OF PROCEDURE The patient arrived to the procedure lab. The risks and benefits of the procedure as well as a full d escription of our services here and current unavailability of surgical backup were fully explained to the patient and/or their significant other prior to the catheterization. The Timeout was completed, verifying the correct patient and procedure. The patient's procedural site was prepped and draped in the usual fashion. Local anesthetic was given subcutaneously to right radial region with Lidocaine 2% . Using a modified Seldinger technique, arterial access was obtained via the right radial artery, a 6 Fr sheath was inserted. Left Coronary Artery selective angiography was performed in multiple views u sing a 5 Fr. 4.0 [place] catheter. Right Coronary Artery selective angiography was then performed in mu ltiple views using a 5 Fr. 4.0 [place] catheter. Left Ventriculography was performed in SANCHEZ projection using a 5 Fr. [place] catheter. LV to AO pullback pressures were then recorded.The arterial sheath was pulled and a TR Band was applied for hemostasis CORONARY ANGIOGRAPHY DOMINANCE: Right Dominant LEFT HEART ASSESSMENT Left Ventricular Ejection Fraction: by LV Gram 50 % Normal LV wall motion Normal Left Ventricular systolic function LEFT MAIN: 30 % proximal % Stenosis LEFT ANTERIOR DESCENDING ARTERY: PROX LAD: 30 % Stenosis CIRCUMFLEX ARTERY: PROX CIRC: Diffusely diseased up to 75 % RIGHT CORONARY ARTERY: MID RCA: Previously placed stent has an instent 75 % restenosis RT PLV: 60 % Stenosis COMPLICATIONS No Complications PROCEDURE MEDICATIONS Fentanyl 50 mcg IV Versed 1 mg IV Oxygen: 2 L/min via nasal cannula Heparin diluted in 23cc Heparinized saline. Patient given 10cc IA of this solution. 03/25/2019 12:09: 48 Verapamil 2.5mg, Ntg 100mcgs, 2000 units of Heparin diluted in 23cc Heparinized saline. Patient give n 10cc IA of this solution. 03/25/2019 12:09:48 SUMMARY OF HEMODYNAMIC DATA Time AIR REST ECG 11:45:00 AO 147/77 (106) SA 12:11:47 LV 132/7, 13 12:12:32 LV 153/10, 21 12:21:46 LV 151/9, 17 12:21:52 LV 155/-6, 23 12:22:43 LVp 157/-5, 19 12:22:48 AOp 163/66 (105) 12:22:53 Signed By Fish Torres MD On 03/25/2019 13:41:32 Fish Torres MD
== END 2019-03-25 16:57 | disposition short-term general hospital (02) | DRG 287 ==
LOC: ED 19:04 → ICU 20:41
PROVIDERS: Internal Medicine; Admitting Provider Family Medicine; Emergency Provider Emergency Medicine; Family Provider Family Medicine Geriatric Medicine; PCP Family Medicine Geriatric Medicine
DX: I47.2 Ventricular tachycardia (principal); T82.855A Stenosis of coronary artery stent, initial encounter; N17.9 Acute kidney failure, unspecified; E78.5 Hyperlipidemia, unspecified; I10 Essential (primary) hypertension; F17.210 Nicotine dependence, cigarettes, uncomplicated; I25.2 Old myocardial infarction; I25.10 Atherosclerotic heart disease of native coronary artery without angina pectoris; E87.6 Hypokalemia; R79.89 Other specified abnormal findings of blood chemistry
CPT/HCPCS: 71045; 80048; 82962; 83036; 83735; 84443; 84484; 85025; 85610; 85730; 92960; 93005; 93306; 93458; 97802; 99285; 99406; J7030; Q9957; Q9967; A4216; C1769; C1894; C8929; J0153

== ENCOUNTER → 2019-04-29 13:03 | Outpatient (CLI) | payer MEDICARE, OTHER, SELFPAY ==
[2019-03-23 20:35] VITALS: BMI 28.2
[2019-04-29 17:46] LABS: Absolute Neutrophil Count 6.9 X10^3/uL (2.0-7.7); Basophil# 0.08 X10^3/uL; Basophil% 0.9 % (0-1); Eosinophil# 0.49 X10^3/uL; Eosinophils% 5.2 % (0-5); Hematocrit 44.4 % (40-54); Hemoglobin 13.7 g/dL (13.0-16.5); Lymphocyte % 12.8 % (19-41); Mean Corp Hgb Conc 30.9 g/dL (32-36); Mean Corpuscular Hgb 32.6 pg (27.0-32.0); Mean Corpuscular Volume 105.7 fL (80-94); Mean Platelet Vol. 9.5 fl (6.2-12.0); Monocyte# 0.72 X10^3/uL; Monocyte% 7.7 % (0-10); NRBC Flagged by Analyzer 0 % (0-5); Neutrophil # 6.85 X10^3/uL (2.7-7.7); Neutrophil % 72.9 % (47-70); Platelet Count 321 K/mm3 (150-450); RBC Distribution Width SD 58.7 fl (35.1-43.9); White Blood Count 9.4 K/mm3 (4.4-11.0)
[2019-04-29 18:12] LABS: Vitamin D,25 Hydroxy 28.2 ng/mL (29.95-100.01)
[2019-04-29 18:18] LABS: ALB/GLOB Ratio 1.1 RATIO (0.9-2.4); AST(SGOT) 27 U/L (15-37); Alanine Aminotransfer ALT/SGPT 33 U/L (16-61); Albumin, Serum 3.8 g/dL (3.2-5.0); Alkaline Phosphatase 92 U/L (45-117); Anion Gap 7 (5-15); BUN 17 mg/dL (7-18); BUN/Creat Ratio 15.5 RATIO (10-20); Chloride 106 mmol/L (98-107); EST Glomerular Filtration Rate 70 mL/min (>60); Est Glom Filt Rate - Afr Amer 85 mL/min (>60); Globulin 3.5 g/dL (2.2-4.2); Glucose 108 mg/dL (74-106); PSA,Total - Annual Screen 1.44 ng/mL (0.00-4.00); Potassium 4.4 mmol/L (3.5-5.1); Protein, Total 7.3 g/dL (6.4-8.2); Sodium Level 137 mmol/L (136-145); Thyroid Stim Hormone (TSH) 2.67 uIU/mL (0.358-3.74)
== END ==
PROVIDERS: Family Provider Family Medicine Geriatric Medicine; PCP Family Medicine Geriatric Medicine; Visit Provider Family Medicine Geriatric Medicine
DX: E11.9 Type 2 diabetes mellitus without complications (principal); E55.9 Vitamin D deficiency, unspecified; I10 Essential (primary) hypertension; Z12.5 Encounter for screening for malignant neoplasm of prostate
CPT/HCPCS: 36415; 80053; 82306; 84153; 84443; 85025; G0103

== ENCOUNTER → 2019-05-09 09:09 | Outpatient (CLI) | payer MEDICARE, OTHER, SELFPAY ==
[2019-05-01 14:14] VITALS: BMI 26.6
--- NOTE | 2019-05-09 09:12 | PCM.CR.HP2 ---
CR - History & Physical - General Arrival date:: 05/09/19 Arrival time:: 09:12 Date of Referral:: 05/01/19 Date of CR Evaluation:: 05/09/19 Referring Physician: Dr. Vivian Torres Primary Diagnosis: CABG - History of Present Cardiac Event Onset Date: Enter Onset Date of cardiac illnesses in Comment field below Current stable Angina Pectoris:: No Acute Myocardial Infarction within 12 months:: No - 10/2017 Coronary Artery Bypass Graft:: Yes - 03/25/19 Heart valve replacement or repair:: No PTCA or coronary stenting:: Yes - 03/25/19 Heart or Heart-Lung Transplant:: No Heart Failure EF <35%:: No Type of Symptoms:: ED with polymorphic VT. Sx were lightheadedness, cold sweats at times before ED visit. Interventions with present event:: Heart shocked in ED. CABG and stents. Were there any complications?: needed 1 unit blood post op. - Medications Home Medications: Ambulatory Orders Medication Instructions Recorded Aspirin E.C. [Ecotrin] 81 mg PO DAILY@0800 #30 tab 10/30/17 Brimonidine Tartrate [Alphagan P] 1 drp LEFT EYE BID 03/23/19 Latanoprost 1 drp LEFT EYE QHS 03/23/19 acetaminophen ER 650 mg 650 mg PO Q8H PRN tab 04/27/19 tablet,extended release ascorbic acid (vitamin C) 500 mg 500 mg PO BID cap 04/27/19 capsule ferrous sulfate 325 mg (65 mg 325 mg PO BID tab 04/27/19 iron) tablet magnesium 400 mg (as magnesium 400 mg PO BID cap 04/27/19 oxide,aspartate,citrate) capsule amiodarone 200 mg tablet 200 mg PO DAILY #90 tab 05/01/19 atorvastatin 40 mg tablet 40 mg PO QODAY #90 tab 05/01/19 clopidogrel 75 mg tablet 75 mg PO DAILY #90 tab 05/01/19 metoprolol tartrate 50 mg tablet 50 mg PO BID 90 Days #180 tab 05/01/19 - Allergies Allergies/Adverse Reactions: Allergies No Known Allergies Allergy (Verified 05/01/19 14:15) - Sleep Disorder Evaluation Hx of Sleep Apnea: No Do you snore loudly (louder than talking or can be heard through closed doors)?: No Do you often feel tired/ fatigued/ sleepy during daytime?: No Has anyone observed you stop breathing during sleep?: No History of Hypertension (for STOP score): Yes STOP Results: Negative Advanced Directives - Advanced Directives Power of [place]: No Living Will: No Advance Directives Information Provided: Yes Advance Directives on File: No DNR Order?:: No Past Medical History - Past Medical Illness Medical History: Past Medical History (Last Reviewed 05/01/19 @ 16:22 by Fish Torres MD) Atherosclerosis of coronary artery of [place] heart with angina pectoris (Chronic) I25.119 PYQ-MYN-Apzefa RCA using 2.5 x 12 mm Resolute Integrity and PCI-JAJA-Mid RCA using 3.0 x 15 mm Resolute Integrity 10/29/17 Nonsustained ventricular tachycardia (Chronic) I47.2 Nonsustained supraventricular tachycardia (Chronic) I47.1 Sustained ventricular tachycardia (Resolved) Onset Date: 03/24/19 I47.2 cardioverted in ER Old inferior wall myocardial infarction (Chronic) Onset Date: 10/29/17 I25.2 Essential (primary) hypertension (Chronic) I10 HLD (hyperlipidemia) (Chronic) E78.5 Stenosis of left subclavian artery (Chronic) I77.1 Nicotine dependence (Chronic) F17.200 Multiple lung nodules (Chronic) R91.8 GERD (gastroesophageal reflux disease) K21.9 History of non-ST elevation myocardial infarction (NSTEMI) Onset Date: 03/23/19 I25.2 [place] (hard of hearing) (Inactive) H91.90 - Past Surgical History Surgical History: Past Surgical History (Last Reviewed 05/01/19 @ 16:22 by Fish Torres MD) History of implantable cardiac defibrillator (ICD) (Chronic) Onset Date: 04/12/19 Z95.810 [place] [employer] dual chamber History of coronary artery stent placement (Resolved) Onset Date: 10/29/17 Z95.5 LTX-BRJ-Cfqyir RCA using 2.5 x 12 mm Resolute Integrity and JAJA-Mid RCA using 3.0 x 15 mm Resolute Integrity 10/29/17 History of electrophysiologic study Onset Date: 04/2019 Z98.890 inducible VT History of herniorrhaphy Z98.890, Z87.19 Left inguinal History of left heart catheterization Onset Date: 04/04/19 Z98.890 Hx of elbow surgery Z98.890 Surgical History: herniorrhaphy - Left inguinal, - - hernia, elbow surgery. - Family History Summary Family History: Family History (Last Reviewed 05/01/19 @ 16:22 by Fish Torres MD) Father Negative FH of ASCVD Social History - Smoking History Smoking Status: Former smoker - quit 03/23/19 Hx Smoking Cessation Date: 03/23/19 Hx Tobacco Use: Yes Hx Smoking Exposure: No - Alcohol Use Alcohol Usage: No - former - Substance Abuse Hx Substance Use: No - Occupation Occupation (List type of work in comments):: Retired - Hobbies, Recreation, Social Activities Hobbies: Sports Recreational Activities: I am able to engage in all my recreational activities Social Environment - Status Marital Status: - Current Living Arrangements Living Environment:: Spouse - Children How many children do you have?: 1 Do any of your children live nearby?: No - Safety Do you feel safe in your surroundings?: Yes - Assistance Do you need any assistance at home?: no Review of Systems - Review of Systems Hints: Right click = Denies ([place]). Left click = Reports ([place]) Review of Present Symptoms: Reports: Shortness of Breath with Exertion - some, Operative Discomfort, Wound Healing - yes, Dizziness/Lightheadedness - not since surgery unless gets up too quickly., Fatigue - takes a daily nap, but not in general., Appetite - Normal - yes, Appetite - Special Diet - cardiac diet., Sleep - Normal - no problems.. Denies: Shortness of Breath at Rest, PVD, Angina, Heart Arrhythmia/Irregularities - none since surgery, Sexual Changes - Pain Is Patient Pain Free?: No Pain Location: chest, lower extremity - left leg. Pain Level: 0/10 - sensitivity only on chest and left leg. Previous experience dealing with pain?: rest, pain meds as ord. Risk Factor Assessment - Chief Complaint Chief Complaint: s/p cabg - Vital Signs Pulse Ox: 95 - Pulse Pulse Rate: 64 Pulse Rhythm: Regular - Hypertension How long have you been treated?: 35 years On medication(s)?: yes Blood Pressure Sitting - Right Arm: 140/84 Blood Pressure Sitting - Left Arm: 116/80 - Blood Cholesterol/Lipids Total Cholesterol (mg/dL) Goal = less than 200 mg/dL: 165 HDL Cholesterol (mg/dL) Goal = less than 40 mg/dL: 29 LDL Cholesterol (mg/dL) Goal = less than 70 mg/dL: 35 Triglycerides (mg/dL) Goal = less than 150 mg/dL: 165 - Diabetes Nutrition Referral for Diabetes: No - Obesity Height: 6 ft 4 in Weight:: 219 lb Weight in Pounds: 219.0 lbs Weight Source: Standing Scale Body Mass Index (BMI): 26.6 Desired Body Weight: 219 Realistic Weight Goal (Loss of 1-2 lbs/week): 215 Nutritional Referral for Obesity: No - Physical Inactivity Physical Inactivity: Reg Exercise 30 min/day - went to [employer] regularly before this event. - Risk Stratification Risk Guidelines: Lowest Risk: Risk Factor for Diabetes, Risk Factor for Sedentary Lifestyle, Risk Factor for Depression, Moderate Risk: Risk Factor for Smoking, Risk Factor for Dyslipidemia, Risk Factor for Obesity, Risk Factor for Hypertension - For Smoking Smoking Risk Guidelines: Smoking Low Risk: None or quit greater than 6 months ago. Smoking Moderate Risk: Smoker or quit 6 months or less ago. Smoking High Risk: Smoker - For Dyslipidemia Dyslipidemia Risk Guidelines: Low Risk: Moderate Risk: High Risk: 15-25% fat 25.1-29% fat >/= 30% fat. <7% sat fat 7-9% sat fat >9% sat fat. <150 mg chol 150-299 mg chol >/= 300 mg chol. LDL <100 LDL 100-129 LDL >/= 130. Chol/HDL ratio <5.0 Chol/HDL ratio 5.0-6.0 Chol/HDL ratio >6.0. Triglycerides <100 Triglycerides 100-149 Triglycerides >/= 150 - For Diabetes Mellitus Diabetes Risk Guidelines: Diabetes Low Risk: HgA1c <6.5% and/or FBG <120. Diabetes Moderate Risk: HgA1c 6.6-7.9% and/or FBG 120-180. Diabetes High Risk: HgA1c >/= 8% and/or FBG >180 - For Obesity/Overweight Obesity/Overweight Risk Guidelines: Obesity Low Risk: BMI <25.0. Obesity Moderate Risk: BMI 25-29.9. Obesity High Risk: BMI >/= 30.0 - For Hypertension Hypertension Risk Guidelines: Hypertension Low Risk: Systolic <120 and Diastolic <80. Hypertension Moderate Risk: Systolic 120-139 and Diastolic 80-89. Hypertension High Risk: Systolic >/= 140 and Diastolic >/= 90 - For Sedentary Lifestyle Sedentary Lifestyle Risk Guidelines: Sedentary Lifestyle Low Risk: >/= 1,500 kcal/week. Sedentary Lifestyle Moderate Risk: 700-1,499 kcal/week. Sedentary Lifestyle High Risk: < 700 kcal/week - For Depression Depression Risk Guidelines: Depression Low Risk: Not clinically depressed. Depression Moderate Risk: Mildly depressed. Depression High Risk: Clinically depressed - Family History Family History: Family History (Last Reviewed 05/01/19 @ 16:22 by Fish Torres MD) Father Negative FH of ASCVD Motivation - Motivation to Participate On a scale of 1 to 10, how prepared are you to commit to attending program?: 10
[2019-05-09 09:45] VITALS: BP 116/80; BP 140/84; PULSE 64; O2SAT 95; BMI 26.6
--- NOTE | 2019-05-09 09:49 | PCM.CR.ITP ---
General Information - General Information Admitting Diagnosis: CABG - Education/Goals Barriers to Learning: Hearing Impairment - [facility] Individual Counseling: Initial Assessment: Nicotine/Smoking, Abnormal Cholesterol Levels, High Blood Pressure, Hypertension, Low HDL <40/Males or <50/Females Cardiac Rehabilitation Goals: 1. Maintain the individual as the primary focus of care. 2. To improve the patient's quality of life. 3. Identification of cardiac risk factors and provide cardiac risk factor management. 4. Enhance the psychosocial status of the patient. 5. Reconditioning enough to allow the patient to resume customary activities. 6. Control symptoms of cardiac disease Scale for measuring improvement of personal goals: Enter appropriate number in Comments. 2 = Unchanged. 3 = Slightly Better. 4 = Moderate Improvement. 5 = Met my Goal Personal Goals: Initial Assessment: Quit smoking (participate in smoking cessation, Control risk factors (learn risk factor modification) Exercise - Initial Assessment - Visit Date of Eval: 05/09/19 - Stages of Change Stages of Change:: Action - Physician Prescribed Exercise Modalities: Treadmill, Biodyne, Rower, Airdyne, NuStep, SciFit Frequency (days/week): 3x/week for 12 weeks [36 sessions] Intensity: 60-80% age predicted maximum heart rate reserve METs - Progression: 0.5-1.0 MET, RPE 11-14 WEEK: 0.5-1.0 Target Heart Rate:: 98-128 - Hypertension Do any of the following apply?: Yes, Medication, Diet Resting Blood Pressure:: 140/82 - Intervention Home Exercise/Activity Goal:: Moderate Exercise 30 min/day x 5 days/wk - Education Goals:: Warm-up, RPE AMBROSE Scale, S/S, Safe Exercise, Self-Monitoring - Exercise Program Goals Exercise Program Goals: Aerobic Activity >30 min Nutrition - Initial Assessment - Program Goals Nutrition Program Goals: LDL <70. Total Cholesterol <200. HDL >45. Triglycerides <150. HgbA1C <7%. BMI <25 - Visit Date of Assessment:: 05/09/19 - Stages of Change Stages of Change:: Action - Lipids Total Cholesterol (mg/dL) Goal = less than 200 mg/dL: 97 HDL Cholesterol (mg/dL) Goal = less than 45 mg/dL: 29 LDL Cholesterol (mg/dL) Goal = less than 70 mg/dL: 35 Triglycerides (mg/dL) Goal = less than 150 mg/dL: 165 Lipid Medication: yes - Diabetes Diabetes:: No - Weight Management Height: 6 ft 4 in Weight:: 219 lb Weight Goal (kg):: 215 lb Body Fat %:: 26.6 - Intervention Referral to dietitian:: No Referral to Diabetic Clinic:: No Will attend diet classes:: Yes - Education Gave educational materials for:: Healthy eating Tobacco - Initial Assessment - Program Goals Tobacco Program Goals: Complete smoking cessation. Attend education classes. Improve Knowledge Test score - Stage of Change Stages of Change:: Action - Learning Barriers Learning Barriers: Hearing, Ready to Learn Total Score:: 20 - Family Support Do you have family support?: Yes - Tobacco Use Tobacco Use: Non-smoker - quit 03/23/19 How long ago did you quit using tobacco products?: Less than 6 months ago - 75 pack years Do you use smokeless tobacco?: No - Intervention Smoking Cessation Referral:: Yes Individual Education/Counseling:: Yes Education Schedule Given:: Yes - Education Attended class for:: Treating Heart Disease, How The Heart Works, What it means to have Heart Disease, How Coronary Artery Disease is Diagnosed, Heart Procedures, What Heart Medications Do, Risk Factors & Modifications, Living an Active Life, Nutrition, Emotions & Heart Disease, Stress Management & Relaxation, Sleep Disorders & Heart Disease Psychosocial - Initial Assess - Target Goals Target Goals: Assess presence or absence of depression. Using a valid screening tool, maximizes coping skills. Positive support system - Stages of Change Stages of Change:: Maintenance - Psychosocial Test Tool Used:: HANDS Depression Questionnaire Self-reported stress:: no Tests Completed: SF - 36 survey completed, Mood Scale Test Total Mood Screening Score:: 1 Self-Efficacy Score:: 9 - Intervention PS - Interventions: Yes Attend Stress Management Classes, Yes Uses Stress Management Skills, No Referral to Mental Health, No Referral to [facility] Case Management, No Referral to Physician - Education Gave educational materials for:: Coping techniques, Signs & symptoms of depression, Stress management, Relaxation techniques - Patient/Program Goal Preventative Medication(s):: Aspirin, STEVE inhibitor, Clopidogrel, Beta svitlana, Statin/lipid - Assistive Devices Assistive Devices:: None Fall Risk Assessed:: Yes Patient Health Questionnaire Initial Assessment 1. Little interest or pleasure in doing things: Not at all 2. Feeling down, depressed, or hopeless: Not at all 3. Trouble falling or staying asleep, or sleeping too much: Not at all 4. Feeling tired or having little energy: Several days 5. Poor appetite or overeating: Not at all 6. Feeling bad about yourself -- or that you are a failure or have let yourself or your family down: Not at all 7. Trouble concentrating on things, such as reading the newspaper or watching television: Not at all 8. Moving or speaking so slowly that other people could have noticed. Or the opposite - being so fidgety or restless that you have been moving around a lot more than usual: Not at all 9. Thoughts that you would be better off , or of hurting yourself in some way: Not at all How difficult have these problems made it for you to do your work, take care of things at home, or get along with other people?: Not difficult at all Total Score: 1 WILLIAM-Q SV Test - Statements CAD is a disease of the arteries in the heart: False Examples of risk factors for heart disease: True Angina is chest pain or discomfort: True The benefits of resistance training include: True Eating more meat and dairy products: False Anti-platelet medications such as aspirin are important: True The only effective way to manage stress: False An exercise warm-up slowly increases heart rate: True Prepared, processed foods usually have high sodium: True Depression is common after a heart attack: True The statin medications lower cholesterol: True To control blood pressure, lower the amount of sodium: True If someone gets chest discomfort during walking: False Transfats are partially hydrogenated vegetable oils: True Sleep apnea that is not treated increases the risk: False To control cholesterol, one should become a vegetarian: False Someone knows if he/she is exercising at the right level: True Diabetes cannot be prevented with exercise & health eating: False Stress is a large risk for heart attack: True A diet that can help lower blood pressure is rich in: True - Total Score Total Correct Responses: 20 Self-Efficacy Initial Assessment We would like to know how confident you are in doing certain activities. Please select your confidence level for:: Select your confidence level for the following using the scale 1-10 where 1 is not at all confident and 10 is totally confident. Your score is the average of all 6 responses. Fatigue: How confident are you that you can keep the fatigue caused by your disease from interfering with the things you want to do? Select Number: 9 Physical Discomfort or Pain: How confident are you that you can keep the physical discomfort or pain of your disease from interfering with the things you want to do? Select Number: 9 Emotional Distress: How confident are you that you can keep the emotional distress caused by your disease from interfering with the things you want to do? Select Number: 9 Other Symptoms or Health Problems: How confident are you that you can keep other symptoms or health problems from interfering with the things you want to do? Select Number: 9 Different Tasks and Activities: How confident are you that you can do the different tasks and activities needed to manage your health condition so as to reduce your need to see a doctor? Select Number: 9 Medication: How confident are you that you can do things other than just taking medication to reduce how much your illness affects your everyday life? Select Number: 9 Total Score:: 9 Nutrition Survey - Nutrition Survey Instructions Scoring Instructions: Scoring is as follows: Yes = 1 points. No = 0 point. Patient score that is >/=12 is considered to be at potential nutritional risk and could benefit from a referral to a registered dietitian. - Nutrition Survey Initial Have you lost >10 lbs over the past 2 months without trying?: Yes Are you following a special diet at home for diabetes, low fat, or low salt?: No Are you interested in meeting with a dietitian for help understanding your diet?: No Do you eat less than 3 meals a day?: No Do you eat fatty meats (roberts, sausage, ribs, etc), fried foods, desserts, large amounts of salad dressings, margarine, butter, or cheese most days?: Yes Do you have food allergies? [Enter types in comment field]: No Do you eat in restaurants more than 3 times a week?: No Do you season food with salt, seasoning salt, or garlic salt?: No Do you used canned, boxed, frozen meals, or soups, seasoning packets?: No Total Score:: 2
[2019-05-09 10:04] VITALS: BP 140/82
== END ==
PROVIDERS: Family Provider Family Medicine Geriatric Medicine; PCP Family Medicine Geriatric Medicine; Referring Provider Internal Medicine Cardiovascular Disease; Visit Provider Internal Medicine Cardiovascular Disease
DX: Z95.1 Presence of aortocoronary bypass graft (principal)

== ENCOUNTER 2019-06-05 10:15 | Outpatient (RCR) | payer MEDICARE, OTHER, SELFPAY ==
[2019-05-09 09:45] VITALS: BMI 26.6
== END 2019-06-08 23:59 ==
LOC: CR 10:15
PROVIDERS: Family Provider Family Medicine Geriatric Medicine; PCP Family Medicine Geriatric Medicine; Referring Provider Internal Medicine Cardiovascular Disease; Visit Provider Internal Medicine Cardiovascular Disease
DX: I25.119 Atherosclerotic heart disease of native coronary artery with unspecified angina pectoris (principal); Z95.1 Presence of aortocoronary bypass graft; I47.2 Ventricular tachycardia; I47.1 Supraventricular tachycardia; Z95.810 Presence of automatic (implantable) cardiac defibrillator; I25.2 Old myocardial infarction; Z95.5 Presence of coronary angioplasty implant and graft; E78.5 Hyperlipidemia, unspecified
CPT/HCPCS: 93798

== ENCOUNTER → 2019-07-01 10:52 | Outpatient (CLI) | payer MEDICARE, OTHER, SELFPAY ==
[2019-05-09 09:45] VITALS: BMI 26.6
[2019-07-01 11:55] LABS: Anion Gap 3 (5-15); BUN 18 mg/dL (7-18); BUN/Creat Ratio 14.9 RATIO (10-20); Calcium,Total 9.5 mg/dL (8.5-10.1); Chloride 108 mmol/L (98-107); Creatinine, Serum 1.21 mg/dL (0.70-1.30); EST Glomerular Filtration Rate 63 mL/min (>60); Est Glom Filt Rate - Afr Amer 76 mL/min (>60); Glucose 114 mg/dL (74-106); Magnesium 2.4 mg/dL (1.6-2.6); Sodium Level 141 mmol/L (136-145); Thyroid Stim Hormone (TSH) 1.92 uIU/mL (0.358-3.74)
== END ==
PROVIDERS: Family Provider Family Medicine Geriatric Medicine; PCP Family Medicine Geriatric Medicine; Referring Provider Internal Medicine Cardiovascular Disease; Visit Provider Internal Medicine Cardiovascular Disease
DX: I25.119 Atherosclerotic heart disease of native coronary artery with unspecified angina pectoris (principal); Z95.1 Presence of aortocoronary bypass graft; I47.2 Ventricular tachycardia; I47.1 Supraventricular tachycardia; Z95.810 Presence of automatic (implantable) cardiac defibrillator; I25.2 Old myocardial infarction; Z95.5 Presence of coronary angioplasty implant and graft; I10 Essential (primary) hypertension; E78.5 Hyperlipidemia, unspecified; I77.1 Stricture of artery
CPT/HCPCS: 36415; 80048; 83735; 84443

== ENCOUNTER 2019-07-08 10:15 | Outpatient (RCR) | payer MEDICARE, OTHER, SELFPAY ==
[2019-05-09 09:45] VITALS: BMI 26.6
--- NOTE | 2019-07-08 08:01 | PCM.CR.ITP ---
General Information - General Information Admitting Diagnosis: CABG - Education/Goals Barriers to Learning: None Cardiac Rehabilitation Goals: 1. Maintain the individual as the primary focus of care. 2. To improve the patient's quality of life. 3. Identification of cardiac risk factors and provide cardiac risk factor management. 4. Enhance the psychosocial status of the patient. 5. Reconditioning enough to allow the patient to resume customary activities. 6. Control symptoms of cardiac disease Scale for measuring improvement of personal goals: Enter appropriate number in Comments. 2 = Unchanged. 3 = Slightly Better. 4 = Moderate Improvement. 5 = Met my Goal Exercise - 60-Day Assessment - Visit Date of Eval: 07/08/19 Session #:: 19 - Stages of Change Stages of Change:: Action - Physician Prescribed Exercise Modalities: Rower, Airdyne, NuStep Frequency (days/week): 3 Duration (Minutes):: 30-45 Intensity: 60-80% age predicted maximum heart rate reserve METs - Progression: 0.5-1.0 MET, RPE 11-14 WEEK: 3.5 Target Heart Rate:: 98-128 Max HR 83 - Hypertension Resting Blood Pressure:: 120/72 Peak Exercise Blood Pressure:: 140/80 Medication Changes:: Yes - metoprolol 100 mg BID - Intervention Home Exercise/Activity Goal:: Sitting Time <3 hrs/day - Education Goals:: Warm-up, RPE AMBROSE Scale, S/S, Safe Exercise, Self-Monitoring - Exercise Program Goals Exercise Program Goals: Aerobic Activity >30 min, B/P <130/80 Nutrition - 60-Day Assessment - Program Goals Nutrition Program Goals: LDL <70. Total Cholesterol <200. HDL >45. Triglycerides <150. HgbA1C <7%. BMI <25 - Visit Date of Eval: 07/08/19 - Stages of Change Stages of Change:: Action - Weight Management Weight:: 223 kg - Intervention Referral to Diabetic Clinic:: No Will attend diet classes:: Yes - Education Attended class for:: Signs & symptoms of hypoglycemia, Signs & symptoms of hyperglycemia, Relate diabetes to coronary artery disease, Healthy eating Tobacco - Initial Assessment - Program Goals Tobacco Program Goals: Complete smoking cessation. Attend education classes. Improve Knowledge Test score - Learning Barriers Learning Barriers: Hearing, Ready to Learn Tobacco - 60-Day Assessment - Program Goals Tobacco Program Goals: Complete smoking cessation. Attend education classes. Improve Knowledge Test score - Stage of Change Stages of Change:: Action - Learning Barriers Learning Barriers: Participates in education - Tobacco Use Tobacco Use: Non-smoker Date quit:: 03/23/19 Do you use smokeless tobacco?: No - Intervention Smoking Cessation Referral:: Yes Individual Education/Counseling:: Yes Education Schedule Given:: Yes - Education Attended class for:: Treating Heart Disease, How The Heart Works, What it means to have Heart Disease, How Coronary Artery Disease is Diagnosed, Heart Procedures, What Heart Medications Do, Risk Factors & Modifications, Living an Active Life, Nutrition, Emotions & Heart Disease, Stress Management & Relaxation, Sleep Disorders & Heart Disease Psychosocial - Initial Assess - Target Goals Target Goals: Assess presence or absence of depression. Using a valid screening tool, maximizes coping skills. Positive support system - Psychosocial Test Tool Used:: HANDS Depression Questionnaire - Assistive Devices Fall Risk Assessed:: Yes Psychosocial - 60-Day Assess - Target Goals Target Goals: Assess presence or absence of depression. Using a valid screening tool, maximizes coping skills. Positive support system - Stages of Change Stages of Change:: Action - Psychosocial Test Tool Used:: HANDS Depression Questionnaire - Intervention PS - Interventions: Yes Attend Stress Management Classes, Yes Uses Stress Management Skills, No Referral to Mental Health, No Referral to [facility] Case Management, No Referral to Physician - Education Attended classes for:: Coping techniques, Signs & symptoms of depression, Stress management, Relaxation techniques - Assistive Devices Assistive Devices:: None Fall Risk Assessed:: Yes Patient Health Questionnaire 60-Day Re-eval Assessment 1. Little interest or pleasure in doing things: Not at all 2. Feeling down, depressed, or hopeless: Not at all 3. Trouble falling or staying asleep, or sleeping too much: Not at all 4. Feeling tired or having little energy: Several days 5. Poor appetite or overeating: Not at all 6. Feeling bad about yourself -- or that you are a failure or have let yourself or your family down: Not at all 7. Trouble concentrating on things, such as reading the newspaper or watching television: Not at all 8. Moving or speaking so slowly that other people could have noticed. Or the opposite - being so fidgety or restless that you have been moving around a lot more than usual: Not at all 9. Thoughts that you would be better off , or of hurting yourself in some way: Not at all How difficult have these problems made it for you to do your work, take care of things at home, or get along with other people?: Not difficult at all Total Score: 1 Self-Efficacy 60-Day Re-eval Assessment We would like to know how confident you are in doing certain activities. Please select your confidence level for:: Select your confidence level for the following using the scale 1-10 where 1 is not at all confident and 10 is totally confident. Your score is the average of all 6 responses. Fatigue: How confident are you that you can keep the fatigue caused by your disease from interfering with the things you want to do? Select Number: 9 Physical Discomfort or Pain: How confident are you that you can keep the physical discomfort or pain of your disease from interfering with the things you want to do? Select Number: 9 Emotional Distress: How confident are you that you can keep the emotional distress caused by your disease from interfering with the things you want to do? Select Number: 9 Other Symptoms or Health Problems: How confident are you that you can keep other symptoms or health problems from interfering with the things you want to do? Select Number: 9 Different Tasks and Activities: How confident are you that you can do the different tasks and activities needed to manage your health condition so as to reduce your need to see a doctor? Select Number: 9 Medication: How confident are you that you can do things other than just taking medication to reduce how much your illness affects your everyday life? Select Number: 9 Total Score:: 9
[2019-07-08 08:09] VITALS: BP 120/72; BP 140/80
== END 2019-07-09 23:59 ==
LOC: CR 10:15
PROVIDERS: Family Provider Family Medicine Geriatric Medicine; PCP Family Medicine Geriatric Medicine; Referring Provider Internal Medicine Cardiovascular Disease; Visit Provider Internal Medicine Cardiovascular Disease
DX: I25.119 Atherosclerotic heart disease of native coronary artery with unspecified angina pectoris (principal); Z95.1 Presence of aortocoronary bypass graft; I47.2 Ventricular tachycardia; I47.1 Supraventricular tachycardia; Z95.810 Presence of automatic (implantable) cardiac defibrillator; I25.2 Old myocardial infarction; Z95.5 Presence of coronary angioplasty implant and graft; E78.5 Hyperlipidemia, unspecified
CPT/HCPCS: 93798

== ENCOUNTER 2019-08-09 10:15 | Outpatient (RCR) | payer MEDICARE, OTHER, SELFPAY ==
[2019-05-09 09:45] VITALS: BMI 26.6
[2019-07-10 00:17] VITALS: BP 120/72; BP 140/80
--- NOTE | 2019-08-07 13:26 | CR.ITP_ITS ---
Exercise - 90-day Assessment - Visit Date of Xi: 08/07/19 Session #:: 31 - Physician Prescribed Exercise Modalities: Treadmill, Rower, Airdyne Frequency: 3x/week for 12 weeks [36 sessions] Intensity: 60-80% of age predicted maximum heart rate reserve Current METSs:: 3.5 unchanged Target Heart Rate:: 98-128 Current RPE:: 14 so not increased Maximum Excercise HR:: 73 Resting Blood Pressure: 128/78 Maximum Exercise Blood Pressure: 154/84 EKG Type: NSR with rare PACs Current Physical Activity or Exercising minutes: 30 - Outcomes & Goals Goals:: Verbalizes understanding of THR, RPE & goal METS by session 6, Documents in home exercise log/reports 30 min aerobic 5 day/wk by DC, Demonstrates accurate pulse taking by DC - Intervention & Plan Exercise Program Goals: Instruct on personal THR & RPE, Instruct on MET level & personal MET goal, Show patient to take own pulse /validate performance until accurate, Instruct on home exercise - 30-day Reassessments 30 day Reassessments:: Not Met Reassessment Notes & Comments:: Patient demonstrates no desire to increase intensity of exercise. He frequently states to staff he knows the game so if I rate it at a 14-15 you wont incease it! - Physical Activity Home Exercise Physical Activity - Home Exercise: Safe Exercise, Warm-up, Self-monitoring, Cool-Down, Home Exercise > 30 min Daily, Sitting Time <3 hours/daily - Outcomes & Goals Outcomes/Goals: Demonstrates correct Warm-up/exercise Cool-Down (S3) if = 2.5 METs, Verbalizes symptoms of exercise intolerance by Session 3 (S3), Demonstrate safe equipment use (S3) & follows exercise prescrition (6) - Intervention & Plan Plan/Intervention: Instruct warm-up & cool-down if exercising at > 2 METs, Instruct on symptoms of exercise intolerance & actions to take, Instruct & monitor on saf, Assess intial functional capacity & safety risk Nutrition - 90-Day Assessment - Program Goals Nutrition Program Goals: LDL <100 optimal. 100 - 129 Near optimal. 130 - 159 Borderline High. 160 - 189 High. Total Cholesterol <200 desirable. 200 - 239 Borderline High. >/= 240 High. HDL < 40 Low >/=60 High. Triglycerides <150 desirable. <199 optimal. VlDL 5 - 40. HgbA1C <7%. BMI <25 Patient has diagnosis of Hyperlipidemia (ICD E78)?: Yes - Visit Date of Assessment:: 08/07/19 Session #:: 31 - Cholesterol/Lipids Triglycerides (mg/dL): 0 - no recent lipids profile availabel since admitting to [facility] Determine presence & major risk factors that modify LDL goal: Hypertension or hypertensive medication, Low HDL cholesterol <40 mg/dL*, Age men > 45 years; women >/= 55 years Outcomes/Goals: Pt IDs own risk factors & lifestyle modifications by Session 10, Verbalizes symptoms of angina & response by session 3., Pt independently manages Intervention/Plan: Advocate for lipid panel cholesterol medication if applicable, Instruct on personal lipid levels & lipid goals/NCEP guidelines, Instruct on cholesterol Referral to dietitian:: No - Weight Mgt (Other Care) Not Applicable: No Height: 6 ft 4 in Weight:: 226 lb BMI: 27.5 Diagnosis Overweight/Obesity BMI> 30% ICD-10 E66: No Diagnosis High BMI/Morbid Obesity BMI> 35% ICD-10 Z68: No Outcomes/Goals: Pt sets, maintains & shows weight loss goal & trend during rehab Intervention/Plan: Instruct on ideal BMI & set weight loss goal w/patient, Assist pt to ID & incorporate diet changes for weight loss by S9, Refer to Structured Weight Loss program as appropriate, Encourage goal of using 250- 300dcal per session for weight loss 30 day Reassessments:: Met - Healthy Eating Habits Will attend diet classes:: Yes Outcomes/Goals:: Consume diet rich in vegs,fruits,whole grain/high fiber,fish,lean meat, Limit sat/trans fats,cholesterol & added salts & sugars - Education Gave educational materials for:: Healthy eating Medical- 90-Day Assessment - Visit Date of Eval: 08/07/19 Session #:: 31 - Medication Compliance Preventative Medication(s):: Aspirin, STEVE inhibitor, Clopidogrel/P2Y12 inhibit, Statin/lipid, Beta svitlana, ARB (Angiotensi Rcap) H/O mental health issues: depression, anxiety, or addiction?: No Doesn?t believe in the benefits of treatment?: No Believes medications are unnecessary or harmful?: No Has a concern about medication side effects?: No Expresses concern over the cost of medications?: No Outcomes/Goals: Verbalizes medications,desired effect & common side effects @ DC, Pt self-reports following medication regimen, Keeps card in wallet w/medications listed by DC Interventions/plans: Instruct on medication effects & side effects, Review medication list w/patient every two weeks, Instruct importance of taking meds as ordered & assist problem solving 30-day Reassessments:: Met Reassessment Notes & Comments:: patient is compliant with medications. - Tobacco Use Tobacco Use: Non-smoker - Hypertension [place] [employer] Hypertension Guidelines: [place] [employer] Hypertension Guidelines. Normal BP Less than 120/80. Elevated BP 120/80. Hypertension Stage 1: BP 130-139/80-89. Hypertesnion Stage 2: BP 140 or higher/90 or higher. Hypertension Crisis: BP higher than 180/120 Psychosocial - 90-Day Assess - VIsit Date of Eval: 08/07/19 Not Applicable: No History of previous Mental disease:: No - Target Goals Target Goals: Assess presence or absence of depression. Using a valid screening tool, maximizes coping skills. Positive support system - Psychosocial Test Tool Used:: [employer] QOL Cardiac, PHQ-9 Questionnaire phq-9 Severity: Severity. 1-4 Minimal Depression. 5-9 Mild Depression. 10-14 Moderate Depression. 15-19 Moderately Sever Depression. 20-27 Severe Depression. Rule: - Referral to Behavioral Health PS - Interventions: Yes Attend Stress Management Classes, No Referral to Behavioral Health if PHQ-9 score >9:, No Referral to [facility], No Referral to Physician if PHQ-9 if score is 5-9: - Outcomes/Goals: See list Psychosocial Outcomes/Goals:: ID's personal stressors & 2 strategies to manage stress by discharge - Intervention/Plan: See List Interventions/Plan:: Assess stressors,coping strategies & signs of derpression on admission, Instruct/assist pt to develop coping & personal stress Mgt strategies, Instruct patient to recognize signs & symptoms of depression, Instruct patient to recog - 30-day Reassessments: 30 day Reassessments:: Met Patient Health Questionnaire 90-Day Re-eval Assessment 1. Little interest or pleasure in doing things: Not at all 2. Feeling down, depressed, or hopeless: Not at all 3. Trouble falling or staying asleep, or sleeping too much: Not at all 4. Feeling tired or having little energy: Not at all 5. Poor appetite or overeating: Not at all 6. Feeling bad about yourself -- or that you are a failure or have let yourself or your family down: Not at all 7. Trouble concentrating on things, such as reading the newspaper or watching television: Not at all 8. Moving or speaking so slowly that other people could have noticed. Or the opposite - being so fidgety or restless that you have been moving around a lot more than usual: Not at all 9. Thoughts that you would be better off , or of hurting yourself in some way: Not at all Total Score: 0 Self-Efficacy 90-Day Re-eval Assessment We would like to know how confident you are in doing certain activities. Please select your confidence level for:: Select your confidence level for the following using the scale 1-10 where 1 is not at all confident and 10 is totally confident. Your score is the average of all 6 responses. Fatigue: How confident are you that you can keep the fatigue caused by your disease from interfering with the things you want to do? Select Number: 10 Physical Discomfort or Pain: How confident are you that you can keep the physical discomfort or pain of your disease from interfering with the things you want to do? Select Number: 10 Emotional Distress: How confident are you that you can keep the emotional distress caused by your disease from interfering with the things you want to do? Select Number: 10 Other Symptoms or Health Problems: How confident are you that you can keep other symptoms or health problems from interfering with the things you want to do? Select Number: 10 Different Tasks and Activities: How confident are you that you can do the different tasks and activities needed to manage your health condition so as to reduce your need to see a doctor? Select Number: 10 Medication: How confident are you that you can do things other than just taking medication to reduce how much your illness affects your everyday life? Select Number: 10 Total Score:: 10
[2019-08-07 13:34] VITALS: BP 128/78; BMI 27.5
== END 2019-08-09 23:59 ==
LOC: CR 10:15
PROVIDERS: Family Provider Family Medicine Geriatric Medicine; PCP Family Medicine Geriatric Medicine; Referring Provider Internal Medicine Cardiovascular Disease; Visit Provider Internal Medicine Cardiovascular Disease
DX: I25.119 Atherosclerotic heart disease of native coronary artery with unspecified angina pectoris (principal); Z95.1 Presence of aortocoronary bypass graft; I47.2 Ventricular tachycardia; I47.1 Supraventricular tachycardia; Z95.810 Presence of automatic (implantable) cardiac defibrillator; I25.2 Old myocardial infarction; Z95.5 Presence of coronary angioplasty implant and graft; E78.5 Hyperlipidemia, unspecified
CPT/HCPCS: 93798

== ENCOUNTER 2019-08-19 10:15 | Outpatient (RCR) | payer MEDICARE, OTHER, SELFPAY ==
[2019-08-01 08:00] VITALS: BMI 28.5
[2019-08-07 13:34] VITALS: BMI 27.5
[2019-08-10 00:24] VITALS: BP 120/72; BP 128/78; BP 140/80
== END 2019-09-07 23:59 ==
LOC: CR 10:15
PROVIDERS: Family Provider Family Medicine Geriatric Medicine; PCP Family Medicine Geriatric Medicine; Referring Provider Internal Medicine Cardiovascular Disease; Visit Provider Internal Medicine Cardiovascular Disease
DX: I25.119 Atherosclerotic heart disease of native coronary artery with unspecified angina pectoris (principal); Z95.1 Presence of aortocoronary bypass graft; I47.2 Ventricular tachycardia; I47.1 Supraventricular tachycardia; Z95.810 Presence of automatic (implantable) cardiac defibrillator; I25.2 Old myocardial infarction; Z95.5 Presence of coronary angioplasty implant and graft; E78.5 Hyperlipidemia, unspecified
CPT/HCPCS: 93798

== ENCOUNTER → 2019-10-28 14:16 | Outpatient (CLI) | payer MEDICARE, OTHER, SELFPAY ==
[2019-08-01 08:00] VITALS: BMI 28.5
[2019-08-07 13:34] VITALS: BMI 27.5
[2019-10-28 14:40] LABS: Absolute Lymphocyte Count 1.48 X10^3/uL (0.83-4.51); Absolute Neutrophil Count 6.5 X10^3/uL (2.0-7.7); Basophil# 0.07 X10^3/uL; Basophil% 0.8 % (0-1); Eosinophil# 0.38 X10^3/uL; Eosinophils% 4.2 % (0-5); Hematocrit 48.8 % (40-54); Hemoglobin 16.4 g/dL (13.0-16.5); Lymphocyte # 1.48 X10^3/ul (4.0); Lymphocyte % 16.3 % (19-41); Mean Corp Hgb Conc 33.6 g/dL (32-36); Mean Corpuscular Hgb 32.4 pg (27.0-32.0); Mean Corpuscular Volume 96.4 fL (80-94); Mean Platelet Vol. 9.4 fl (6.2-12.0); Monocyte# 0.66 X10^3/uL; Monocyte% 7.3 % (0-10); NRBC Flagged by Analyzer 0 % (0-5); Neutrophil # 6.47 X10^3/uL (2.7-7.7); Neutrophil % 71.1 % (47-70); Platelet Count 244 K/mm3 (150-450); RBC Distribution Width CV 13.6 % (11.6-14.6); RBC Distribution Width SD 48.6 fl (35.1-43.9); Red Blood Count 5.06 M/mm3 (4.6-6.2); White Blood Count 9.1 K/mm3 (4.4-11.0)
[2019-10-28 15:04] LABS: Vitamin D,25 Hydroxy 36.3 ng/mL
[2019-10-28 15:12] LABS: ALB/GLOB Ratio 1.2 RATIO (0.9-2.4); AST(SGOT) 24 U/L (15-37); Alanine Aminotransfer ALT/SGPT 33 U/L (16-61); Albumin, Serum 4.1 g/dL (3.2-5.0); Alkaline Phosphatase 80 U/L (45-117); Anion Gap 5 (5-15); BUN 15 mg/dL (7-18); BUN/Creat Ratio 12.1 RATIO (10-20); Calcium,Total 9.2 mg/dL (8.5-10.1); Chloride 105 mmol/L (98-107); Creatinine, Serum 1.24 mg/dL (0.70-1.30); EST Glomerular Filtration Rate 61 mL/min (>60); Est Glom Filt Rate - Afr Amer 74 mL/min (>60); Globulin 3.5 g/dL (2.2-4.2); Glucose 125 mg/dL (74-106); Potassium 3.8 mmol/L (3.5-5.1); Protein, Total 7.6 g/dL (6.4-8.2); Sodium Level 139 mmol/L (136-145); Thyroid Stim Hormone (TSH) 1.61 uIU/mL (0.358-3.74)
== END ==
LOC: LAB.FUTURE 14:21 → LAB 14:26
PROVIDERS: PCP Family Medicine Geriatric Medicine; Referring Provider Family Medicine Geriatric Medicine; Visit Provider Family Medicine Geriatric Medicine
DX: E11.9 Type 2 diabetes mellitus without complications (principal); E55.9 Vitamin D deficiency, unspecified; I10 Essential (primary) hypertension
CPT/HCPCS: 36415; 80053; 82306; 84443; 85025

== ENCOUNTER → 2019-12-09 16:57 | Outpatient (CLI) | payer MEDICARE, OTHER, SELFPAY ==
[2019-08-01 08:00] VITALS: BMI 28.5
[2019-08-07 13:34] VITALS: BMI 27.5
--- NOTE | 2019-12-09 17:05 | RAD_ITS ---
STUDY: X-RAY CHEST REASON FOR EXAM: Male, 69 years old. had open heart in sept and states he feels like something is loose TECHNIQUE: Single AP portable view of the chest. COMPARISON: Prior study of 03/23/2019 FINDINGS: A left-sided pacemaker is present. The lungs are clear and expanded. There is no demonstrated pleural abnormality. The heart size is within normal limits. Status post median sternotomy changes are seen. Normal mediastinum and schuyler. Normal visualized pulmonary arteries. Normal visualized aortic arch and descending thoracic aorta. There are degenerative changes of the thoracic spine. There is degenerative osteoarthritis of the bilateral shoulders. There is no demonstrated abnormality of the visualized soft tissue structures of the upper abdomen. RAD/Chest PA and Lateral IMPRESSION: Left-sided pacemaker seen. Status post sternotomy. Degenerative changes of the thoracic spine and shoulder joints. No acute cardiopulmonary disease process is seen. Electronically Signed: Dandre Andrade MD at 19:47 EDT , Service support ,
== END ==
PROVIDERS: PCP Family Medicine Geriatric Medicine; Referring Provider Family Medicine Geriatric Medicine; Visit Provider Family Medicine Geriatric Medicine
DX: R07.89 Other chest pain (principal)
CPT/HCPCS: 71046

== ENCOUNTER → 2020-03-31 08:58 | Outpatient (CLI) | payer MEDICARE, OTHER, SELFPAY ==
[2019-08-07 13:34] VITALS: BMI 27.5
[2020-03-27 08:48] VITALS: BMI 28.3
--- NOTE | 2020-03-31 08:59 | NM_ITS ---
CLINICAL: 69-year-old male with reported history of rib pain. WHOLE BODY 99m Tc MDP RADIONUCLIDE BONE SCINTIGRAPHY COMPARISON: Plain film radiograph report bilateral ribs 03/27/2020 FINDINGS: Following the intravenous administration of 27.0 mCi of 99m Tc MDP, whole body bone images reveal: 1. Focal increased radiopharmaceutical concentration is noted in the right anterior sixth rib at the costochondral junction. 2. Enhanced tracer distribution is defined in the left temporomandibular joint, midlower cervical spine posteriorly on the left and right, ninth-10th and 12th thoracic, second-fifth lumbar vertebra, bilateral wrist articulations, acromioclavicular, sternoclavicular and glenohumeral compartments of both shoulders, knees bilaterally, the right-left midfoot. 3. The remaining skeletal structures are scintigraphically unremarkable with normal-appearing renal images and urinary bladder activity identified. A linear increase in tracer uptake is visualized in the proximal-distal sternum consistent with the patient''s history of median sternotomy. NM/Bone Scan Whole Body IMPRESSION: 1. The increase in radiopharmaceutical concentration observed in the right anterior sixth rib is consistent with trauma-fracture. 2. 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 Electronically Signed: Farooq Erickson DO at 23:30 EDT Tel , Service support ,
== END ==
PROVIDERS: PCP Family Medicine Geriatric Medicine; Referring Provider Orthopaedic Surgery; Visit Provider Orthopaedic Surgery
DX: M54.9 Dorsalgia, unspecified (principal)
CPT/HCPCS: 78306

== ENCOUNTER → 2020-04-30 13:34 | Outpatient (CLI) | payer MEDICARE, OTHER, SELFPAY ==
[2019-08-07 13:34] VITALS: BMI 27.5
[2020-04-06 14:43] VITALS: BMI 28.3
[2020-04-30 15:41] LABS: Absolute Lymphocyte Count 1.18 X10^3/uL (0.83-4.51); Absolute Neutrophil Count 6.4 X10^3/uL (2.0-7.7); Basophil# 0.09 X10^3/uL; Eosinophil# 0.53 X10^3/uL; Hematocrit 49.8 % (40-54); Hemoglobin 16.4 g/dL (13.0-16.5); Lymphocyte # 1.18 X10^3/ul (4.0); Lymphocyte % 13.3 % (19-41); Mean Corp Hgb Conc 32.9 g/dL (32-36); Mean Corpuscular Hgb 34.5 pg (27.0-32.0); Mean Corpuscular Volume 104.8 fL (80-94); Mean Platelet Vol. 10.1 fl (6.2-12.0); Monocyte# 0.67 X10^3/uL; Monocyte% 7.5 % (0-10); NRBC Flagged by Analyzer 0.2 % (0-5); Neutrophil # 6.36 X10^3/uL (2.7-7.7); Neutrophil % 71.6 % (47-70); Platelet Count 259 K/mm3 (150-450); RBC Distribution Width CV 13.1 % (11.6-14.6); RBC Distribution Width SD 50.7 fl (35.1-43.9); Red Blood Count 4.75 M/mm3 (4.6-6.2); White Blood Count 8.9 K/mm3 (4.4-11.0)
[2020-04-30 16:15] LABS: ALB/GLOB Ratio 1.4 RATIO (0.9-2.4); AST(SGOT) 25 U/L (15-37); Alanine Aminotransfer ALT/SGPT 27 U/L (16-61); Albumin, Serum 4.2 g/dL (3.2-5.0); Alkaline Phosphatase 79 U/L (45-117); Anion Gap 10 (5-15); BUN 20 mg/dL (7-18); BUN/Creat Ratio 21.1 RATIO (10-20); Calcium,Total 9.3 mg/dL (8.5-10.1); Chloride 104 mmol/L (98-107); Creatinine, Serum 0.95 mg/dL (0.70-1.30); EST Glomerular Filtration Rate 83 mL/min (>60); Est Glom Filt Rate - Afr Amer 101 mL/min (>60); Glucose 112 mg/dL (74-106); Potassium 4.6 mmol/L (3.5-5.1); Protein, Total 7.2 g/dL (6.4-8.2); Sodium Level 138 mmol/L (136-145); Thyroid Stim Hormone (TSH) 1.41 uIU/mL (0.358-3.74)
[2020-04-30 16:29] LABS: Vitamin D,25 Hydroxy 30.6 ng/mL
== END ==
PROVIDERS: PCP Family Medicine Geriatric Medicine; Visit Provider Family Medicine Geriatric Medicine
DX: E11.9 Type 2 diabetes mellitus without complications (principal); E55.9 Vitamin D deficiency, unspecified; I10 Essential (primary) hypertension
CPT/HCPCS: 36415; 80053; 82306; 84443; 85025

== ENCOUNTER 2020-06-01 20:32 | Emergency (ER) | payer MEDICARE, OTHER, SELFPAY ==
[2019-08-07 13:34] VITALS: BMI 27.5
[2020-06-01 20:33] VITALS: BP 156/93; PULSE 79; RESP 16; TEMP 36.1; O2SAT 99; BMI 28.0
--- NOTE | 2020-06-01 21:04 | ED.DCSUM_ITS ---
History of Present Illness Chief Complaint: Lower Extremity Injury Informant: Patient Narrative: Patient is a 69-year-old male who presents to the emergency department for toe injury. He was chasing his dog around the house when his toe got caught on the carpet. His toenail was partially ripped off. He came into the emergency department because he could not get the bleeding controlled. Patient is on Plavix with a history of CAD. He tried to put direct pressure and Band-Aids on it which did not give relief. He denies any pain. He denies any other injury. No chest pain, shortness of breath or palpitations. No lightheadedness. He states he is up to date on tetanus vaccination. Past Medical History - Allergies and Home Meds Allergies/Adverse Reactions: Allergies No Known Allergies Allergy (Verified 06/01/20 20:35) Primary Care Physician: Jarad Mcwilliams Chi, MD [Primary Care Provider] - 7 Days for suture removal Prior records reviewed: Yes Surgical History: herniorrhaphy - Left inguinal, - - hernia, elbow surgery. Smoking Status: Former smoker - Family History Maternal Family History: Family History (Last Reviewed 02/27/20 @ 11:[address] Fish Torres MD) Father Negative FH of ASCVD Family History: Reports: Hypertension Paternal Family History: Family History (Last Reviewed 02/27/20 @ 11:[address] Fish Torres MD) Father Negative FH of ASCVD Family History: Reports: Hypertension Review of Systems All systems negative except as indicated General: Denies: Chills, Fever ENT: Denies: Rhinorrhea Cardiovascular: Denies: Chest pain Respiratory: Denies: Dyspnea Gastrointestinal: Denies: Abdominal pain, Nausea, Vomiting Musculoskeletal: Denies: Neck pain, Back pain, Extremity Pain Skin: Reports: Wounds Neurological: Denies: Headache Hematologic: Reports: Easy bleeding Physical Exam Vital Signs/Narrative: Vital Signs Temp Pulse Resp BP Pulse Ox 06/01/20 20:33 97 F L 79 16 156/93 H 99 Inital Vital Signs reviewed: Yes General: Well nourished, Well developed Head: Normocephalic, Atraumatic ENT: Moist mucous membranes Neck: Supple, Nontender Cardiovascular: Regular rate, Regular rhythm Respiratory: No distress, CTA bilaterally Abdomen: Soft, Nondistended Back: Negative for: Spinal tenderness Extremities: - - 1.5cm laceration of second toe on the left foot just proximal to toenail. The toe nail is partially uprooted. There is slow venous ooze present. Sensation is intact. Full range of motion. Skin: Normal color, No rash Neurological: Alert, Normal Strength, Normal Sensation Psychological: Normal affect, Normal Mood Diagnostic/Tx/Re-eval - Medical Decision Making Patient presents to the emergency department for injury to his toe. He could not get the bleeding controlled. Procedures Procedure(s): Laceration repair: Informed consent was obtained before procedure started. The appropriate timeout was taken. The area was prepped and draped in the usual sterile fashion. Local anesthesia was achieved using 5cc of lidocaine 1% without epinephrine. The wound was copiously irrigated. 3 4-0 Ethilon simple interrupted sutures were placed. A dressing was applied to the area and anticipatory guidance, as well as standard post procedure care, was explained. Return precautions are given. The patient tolerated the procedure well without any apparent complications. Follow-up visit set for suture removal and evaluati on of laceration. ED Disposition - Plan for ED Patient: Disposition: Home or Assisted Living Diagnosis: Toe laceration Instructions: ED Laceration All Closures Referrals: Jarad Mcwilliams Chi, MD [Primary Care Provider] - 7 Days for suture removal
[2020-06-01] MEDS: Lidocaine 1% (20 ml mdv) 20 ML Vial 5 ML INFILT (21:54)
[2020-06-01 22:00] VITALS: RESP 18
== END 2020-06-01 22:03 | disposition home or self-care (01) ==
PROVIDERS: Emergency Provider Emergency Medicine; PCP Family Medicine Geriatric Medicine
DX: S91.115A Laceration without foreign body of left lesser toe(s) without damage to nail, initial encounter (principal); I25.10 Atherosclerotic heart disease of native coronary artery without angina pectoris; X58.XXXA Exposure to other specified factors, initial encounter; Z87.891 Personal history of nicotine dependence; Z79.02 Long term (current) use of antithrombotics/antiplatelets
CPT/HCPCS: 12001; 99283

== ENCOUNTER 2021-01-31 09:15 | Inpatient (IN) | payer MEDICARE, OTHER, SELFPAY ==
[2019-08-07 13:34] VITALS: BMI 27.5
[2020-11-09 11:34] VITALS: BMI 28.0
[2021-01-31] VITALS (24 sets, daily range): BP systolic 91–166; BP diastolic 52–108; PULSE 85–139; RESP 16–35; TEMP 36.2–36.9; O2SAT 90–97; BMI 27.1; BMI 26.5
--- NOTE | 2021-01-31 09:41 | EKG12_ITS ---
Test Reason : CP Blood Pressure : / mmHG Vent. Rate : 099 BPM Atrial Rate : 066 BPM P-R Int : 000 ms QRS Dur : 120 ms QT Int : 376 ms P-R-T Axes : 000 001 087 degrees QTc Int : 482 ms Poor data quality, interpretation may be adversely affected Atrial fibrillation with occasional ventricular-paced complexes Incomplete left bundle branch block Nonspecific ST and T wave abnormality Abnormal ECG Confirmed by TIBURCIO WILSON, RADHA ([id number]), news copy editor SHITAL FLOWERS ([id number]) on 02/02/2021 9:41:55 AM Referred By: Fanny Braden Confirmed By:RADHA DEY MD
--- NOTE | 2021-01-31 09:41 | RAD_ITS ---
STUDY: X-RAY CHEST REASON FOR EXAM: Male, 70 years old. sob TECHNIQUE: Single AP portable view of the chest. COMPARISON: 03/27/2020 FINDINGS: Left subclavian dual-lead AICD which is unchanged. Status post median sternotomy. The lungs are clear and expanded. There is no demonstrated pleural abnormality. Normal size heart. Normal mediastinum and schuyler. Normal visualized pulmonary arteries. Normal visualized aortic arch and descending thoracic aorta. Normal visualized thoracic spine. Normal visualized ribs, clavicles, and shoulders. There is no demonstrated abnormality of the visualized soft tissue structures of the upper abdomen. RAD/Chest 1 View (Portable) IMPRESSION: No active disease. Electronically Signed: Farooq Mancini MD at 10:48 EDT Tel , Service support ,
--- NOTE | 2021-01-31 09:42 | EDS_ITS ---
HPI History of Present Illness Chief Complaint: Chest Pain Informant: patient and spouse/S.O. Onset/Context/Timing Onset: Days Context: Gradual Onset Current Severity: Moderate Maximum Severity: Moderate Narrative Narrative: Patient presents feeling ill for the past 2 days. Patient states he was doing some yard work and had to stop to rest more frequently than normal. He reports shortness of breath as well as some chest tightness. He has a chronic cough that is unchanged from baseline. He has not noted fever but states that he is usually cold and over the past several days has been sweaty. [facility] Medical History (Updated 01/31/21 @ 13:[address] Nisa Mercado MD) Atherosclerosis of coronary artery of [place] heart with angina pectoris Essential (primary) hypertension GERD (gastroesophageal reflux disease) History of non-ST elevation myocardial infarction (NSTEMI) (03/23/19) HLD (hyperlipidemia) [place] (hard of hearing) Multiple lung nodules Nicotine dependence Nonsustained supraventricular tachycardia Nonsustained ventricular tachycardia 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) Stenosis of left subclavian artery Sustained ventricular tachycardia (03/24/19) Home Medications aspirin 81 mg PO DAILY@0800 #30 tab 10/30/17 [Rx Last Taken Unknown] brimonidine 1 drp LEFT EYE BID 03/23/19 [History Last Taken Unknown] latanoprost 1 drp LEFT EYE QHS 03/23/19 [History Last Taken Unknown] acetaminophen 650 mg tablet,extended release 650 mg PO Q8H PRN tab 04/27/19 [History Last Taken Unknown] icosapent ethyl 1 gram capsule 2 g PO BID 03/13/20 [History Last Taken Unknown] multivitamin 1 tab PO DAILY 03/13/20 [History Last Taken Unknown] gabapentin 100 mg capsule 100 cap PO DAILY 03/27/20 [History Last Taken Unknown] amiodarone 200 mg tablet 200 mg PO DAILY #90 tab 04/13/20 [Rx Last Taken Unknown] clopidogrel 75 mg tablet 75 mg PO DAILY #90 tab 04/13/20 [Rx Last Taken Unknown] venlafaxine 37.5 mg capsule,extended release 24 hr 37.5 cap PO DAILY 05/04/20 [History Last Taken Unknown] atorvastatin 40 mg tablet See Rx Instructions .ROUTE .COMPLEX #90 tab 06/08/20 [Rx Last Taken Unknown] metoprolol tartrate 100 mg tablet 100 mg PO BID #180 tab 11/09/20 [Rx Last Taken Unknown] ascorbic acid (vitamin C) [Vitamin C] 1 cap PO DAILY 01/31/21 [History Last Taken Unknown] diclofenac sodium [Voltaren] 1 ea TOPICAL Q6H 01/31/21 [History Last Taken Unknown] meloxicam [Mobic] 7.5 mg PO DAILY 01/31/21 [History Last Taken Unknown] Allergy/AdvReac Type Severity Reaction Status Date / Time No Known Allergies Allergy Verified 01/31/21 09:16 Family History Father Negative FH of ASCVD Surgical History H/O coronary artery bypass surgery (04/04/19) History of coronary artery stent placement (10/29/17) History of electrophysiologic study (04/2019) History of herniorrhaphy History of implantable cardiac defibrillator (ICD) (04/12/19) History of left heart catheterization (04/04/19) Hx of elbow surgery Social History Smoking Status: Former smoker quit date: 03/23/19 pack-years: 75 alcohol intake: former substance use type: does not use ROS ROS ED Constitutional Constitutional ED: Reports sweats; Denies chills or fever(s) Eyes Eyes: Denies change in vision ENT ENT ED: Denies sore throat Cardiovascular Cardiovascular: Reports chest pain Respiratory/Chest Respiratory/Chest: Reports cough and dyspnea Gastrointestinal Gastrointestinal: Denies abdominal pain, diarrhea, nausea or vomiting Genitourinary Genitourinary ED: Denies dysuria Musculoskeletal Musculoskeletal: Reports myalgias; Denies back pain Integumentary Denies rash Neurologic Neurologic: Denies headache(s) or weakness Psychiatric Psychiatric: Denies anxiety or depression Endocrine Endocrinology: Denies polydipsia or polyuria Allergic/Immunologic Allergic/Immunologic ED: Denies urticaria EXAM Physical Exam Const Vital Signs: 01/31/21 09:17 01/31/21 09:20 01/31/21 10:32 Temperature 97.2 F L 97.2 F L 98.5 F Temperature Source Temporal Temporal Oral Pulse Rate 103 H 103 H 107 H Respiratory Rate 35 H 30 H 18 Respiratory Effort Short of Breath Labored Respiratory Pattern Normal Blood Pressure 122/84 H 122/84 H 105/78 Blood Pressure Mean 96 96 87 Pulse Ox 95 95 94 Oxygen Delivery Method Room Air Room Air Room Air 01/31/21 12:00 01/31/21 13:01 Temperature Temperature Source Pulse Rate 102 H 117 H Respiratory Rate 20 H 24 H Respiratory Effort Respiratory Pattern Blood Pressure 114/97 H 123/91 H Blood Pressure Mean 102 101 Pulse Ox 94 95 Oxygen Delivery Method Room Air Room Air Positive well nourished and well developed General Appearance ED: well developed HEENT Reports normocephalic and head/scalp atraumatic Eyes PERRL and EOMs intact bilaterally Neck supple Chest Wall inspection of chest normal and palpation of chest normal Resp Resp Narrative: Tachypneic Auscultation: diminished lung sounds Cardio Rate: tachycardic Rhythm: abnormal rhythm irregularly irregular GI non-tender Auscultation: hypoactive bowel sounds Palpation: soft Extremity normal to inspection Neuro oriented x3 and no sensory deficits noted Sensorium / Orientation: alert Motor Exam: strength 5/5 throughout Psych mental status grossly normal Skin no rashes or lesions noted MDM MDM MDM Narrative Medical decision making narrative: Patient is placed on monitor worker. EKG, labs, chest x-ray, Covid swab obtained. Lab Data Attestation: I reviewed the patient's lab results. Labs: Laboratory Results - last 24 hr 01/31/21 01/31/21 01/31/21 09:00 09:00 09:00 WBC 6.2 RBC 4.41 L Hgb 14.2 Hct 43.0 MCV 97.5 H MCH 32.2 H MCHC 33.0 RDW Std Deviation 45.0 H RDW Coeff of Priscila 12.6 Plt Count 271 MPV 9.8 Immature Gran % (Auto) 0.300 Neut % (Auto) 73.3 H Lymph % (Auto) 13.2 L Shannon % (Auto) 9.7 Eos % (Auto) 3.2 Baso % (Auto) 0.3 Absolute Neuts (auto) 4.6 Absolute Lymphs (auto) 0.82 L Nucleated RBC % 0 D-Dimer Quant (PE/DVT) 1.95 H* Sodium 142 Potassium 4.2 Chloride 110 H Carbon Dioxide 25.0 Anion Gap 7 BUN 22 H Creatinine 0.92 Estim Creat Clear Calc 89.11 Est GFR (MDRD) Af Amer 104 Est GFR (MDRD) Non-Af 86 BUN/Creatinine Ratio 23.8 H Glucose 132 H Calcium 9.2 Troponin I High Sens 17.0 Radiography Chest X-Ray - ED: 1 View, Read by ED Physician and Chronic Changes Diagnostic Testing: Radiology Impression Chest X-Ray 01/31/21 09:41 IMPRESSION: No active disease. Electronically Signed: Farooq Mancini MD at 10:48 EDT Tel , Service support , Chest CTA 01/31/21 10:31 IMPRESSION: 1. No CT evidence of pulmonary embolism. 2. Small bilateral pleural effusions. 3. Occluded proximal left subclavian artery with reconstitution by the left vertebral artery consistent with subclavian steal. Electronically Signed: Farooq Mancini MD at 11:31 EDT Tel , Service support , EKG Initial EKG: Attestation: I personally reviewed and interpreted this EKG as follows: Interpretation: Atrial Fibrillation (Atrial fibrillation at [address] changes.) Treatment and Re-Evaluation Comments:: Patient's blood work is reviewed. His D-dimer is elevated. Troponin is 17. Patient is sent for CTA. He has small bilateral pleural effusions but no evidence of PE or infiltrate. Covid swab returns negative. Patient has a history of ventricular tachycardia and SVT, but no reported history of A. fib. Patient is given a dose of Lovenox. He will be admitted for further treatment. Heart rate at this time is ranging between 95 and 110. Discharge Plan Triage Chief Complaint: Chest Pain ED Provider: Nisa Mercado Dx/Rx/DC Orders Clinical Impression: Atrial fibrillation, new onset Prescriptions: No Action acetaminophen [Arthritis Pain Relief (acetam)] 650 mg tablet extended release 650 mg PO Q8H PRN (Reason: Pain Or Fever) RF: 0 metoprolol tartrate 100 mg tablet 100 mg PO BID Qty: 180 RF: 3 multivitamin Tablet 1 tab PO DAILY RF: 0 Vascepa 1 gram capsule 2 g PO BID RF: 0 gabapentin 100 mg capsule 100 cap PO DAILY RF: 0 venlafaxine 37.5 mg capsule,extended release 24hr 37.5 cap PO DAILY RF: 0 aspirin 81 MG tablet 81 mg PO DAILY@0800 Qty: 30 RF: 0 latanoprost 0.005 % drops 1 drp LEFT EYE QHS RF: 0 brimonidine 0.1 % drops 1 drp LEFT EYE BID RF: 0 meloxicam [Mobic] 7.5 mg Tablet 7.5 mg PO DAILY RF: 0 Vitamin C 1,000 mg Capsule, Extended Release 1 cap PO DAILY RF: 0 diclofenac sodium [Voltaren] 1 % Gel 1 ea TOPICAL Q6H RF: 0 amiodarone 200 mg tablet 200 mg PO DAILY Qty: 90 RF: 3 clopidogrel 75 mg tablet 75 mg PO DAILY Qty: 90 RF: 3 atorvastatin 40 mg tablet See Rx Instructions .ROUTE .COMPLEX Qty: 90 RF: 3 Primary Care Provider: Jarad Mcwilliams Chi Referrals: Jarad Mcwilliams Chi, MD [Primary Care Provider] - Disposition Disposition: Acute Care Hospital [facility]
[2021-01-31 09:57] LABS: Absolute Lymphocyte Count 0.82 X10^3/uL (0.83-4.51); Absolute Neutrophil Count 4.6 X10^3/uL (2.0-7.7); Basophil# 0.02 X10^3/uL; Basophil% 0.3 % (0-1); Eosinophils% 3.2 % (0-5); Hemoglobin 14.2 g/dL (13.0-16.5); Lymphocyte # 0.82 X10^3/ul (0.83-4.51); Lymphocyte % 13.2 % (19-41); Mean Corpuscular Hgb 32.2 pg (27.0-32.0); Mean Corpuscular Volume 97.5 fL (80-94); Mean Platelet Vol. 9.8 fl (6.2-12.0); Monocyte% 9.7 % (0-10); NRBC Flagged by Analyzer 0 % (0-5); Neutrophil # 4.55 X10^3/uL (2.7-7.7); Neutrophil % 73.3 % (47-70); Platelet Count 271 K/mm3 (150-450); RBC Distribution Width CV 12.6 % (11.6-14.6); Red Blood Count 4.41 M/mm3 (4.6-6.2); White Blood Count 6.2 K/mm3 (4.4-11.0)
[2021-01-31 10:08] LABS: Anion Gap 7 (5-15); BUN 22 mg/dL (7-18); BUN/Creat Ratio 23.8 RATIO (10-20); Calcium,Total 9.2 mg/dL (8.5-10.1); Chloride 110 mmol/L (98-107); Creatinine, Serum 0.92 mg/dL (0.70-1.30); EST Glomerular Filtration Rate 86 mL/min (>60); Est Glom Filt Rate - Afr Amer 104 mL/min (>60); Estimated Creatinine Clearance 89.11 ml/min; Glucose 132 mg/dL (74-106); Potassium 4.2 mmol/L (3.5-5.1); Sodium Level 142 mmol/L (136-145)
[2021-01-31 10:13] LABS: D-Dimer Quantitative (DVT/PE) 1.95 FEU/ug/m (0.27-0.49)
--- NOTE | 2021-01-31 10:31 | CT_ITS ---
STUDY: CTA CHEST REASON FOR EXAM: Male, 70 years old. sob RADIATION DOSAGE (If Supplied By Facility): CTDIvol = ( 11.12 ) mGy, DLP = ( 588.03 ) mGycm TECHNIQUE: The examination was performed with the intravenous administration of IV 100mL Isovue-370. Post-processing of the angiographic images was performed, with multiplanar reformation and 3D reconstruction. Individualized dose optimization techniques were used for this CT. COMPARISON: Chest x-ray earlier today, CT 03/19/2015 FINDINGS: Status post median sternotomy. Left subclavian pacemaker. Normal enhancement of the main pulmonary artery and right and left pulmonary arteries. Normal enhancement of the bilateral peripheral pulmonary arteries. There is no demonstrated pulmonary embolism. Occluded proximal left subclavian artery. There is no demonstrated aortic dissection. Normal heart and pericardium. Normal mediastinum. Normal hilar regions. Normal visualized trachea and bronchi. The lungs are well expanded. Normal pulmonary parenchyma. Small bilateral pleural effusions. Normal chest wall structures. Normal osseous structures. Normal visualized upper abdomen. CT/CTA Chest W/WO Contrast IMPRESSION: 1. No CT evidence of pulmonary embolism. 2. Small bilateral pleural effusions. 3. Occluded proximal left subclavian artery with reconstitution by the left vertebral artery consistent with subclavian steal. Electronically Signed: Farooq Mancini MD at 11:31 EDT Tel , Service support ,
[2021-01-31] MEDS: Enoxaparin 100 MG/ML Syringe SC ×2 (13:01→19:51)
--- NOTE | 2021-01-31 13:31 | HP.PCM.HOS_ITS ---
HPI - General General Date of Admission: 01/31/21 Date of Service: 01/31/21 Chief Complaint: SOB and chest pain- 2 days HPI Narrative RIGO DIAZ, is a 70 M who presents with progressive shortness of breath ongoing for about 2 days. Patient is a 70-year-old with past medical history of CAD status post stent status post CABG in 2019 who also has a history of ventricular tachycardia status post AICD and pacemaker after EP study. Patient was in his usual state of health on 2 about 2 days ago when he noticed that he was short of breath with exertion and at rest. He denied any orthopnea or PND. He noticed also mild bilateral leg swelling. He denied any fever chills or dizziness. He has some chest discomfort that was worse with exertion. And at time of being seen, patient denied any chest pain. His EKG in the ED showed A. fib with RVR. Patient denies any history of A. fib. He is on metoprolol and amiodarone. [facility] Medical History Atherosclerosis of coronary artery of [place] heart with angina pectoris Essential (primary) hypertension GERD (gastroesophageal reflux disease) History of non-ST elevation myocardial infarction (NSTEMI) (03/23/19) HLD (hyperlipidemia) [place] (hard of hearing) Multiple lung nodules Nicotine dependence Nonsustained supraventricular tachycardia Nonsustained ventricular tachycardia 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) Stenosis of left subclavian artery Sustained ventricular tachycardia (03/24/19) Home Medications aspirin 81 mg PO DAILY@0800 #30 tab 10/30/17 [Rx Last Taken 01/31/21] brimonidine 1 drp LEFT EYE BID 03/23/19 [History Last Taken 01/31/21] latanoprost 1 drp LEFT EYE QHS 03/23/19 [History Last Taken 01/30/21] acetaminophen 650 mg tablet,extended release 650 mg PO PRN PRN tab 04/27/19 [History Last Taken 01/30/21] multivitamin 1 tab PO DAILY 03/13/20 [History Last Taken 01/31/21] gabapentin 100 mg capsule 100 cap PO BID 03/27/20 [History Last Taken 01/29/21] amiodarone 200 mg tablet 200 mg PO DAILY #90 tab 04/13/20 [Rx Last Taken 01/31/21] clopidogrel 75 mg tablet 75 mg PO DAILY #90 tab 04/13/20 [Rx Last Taken 01/31/21] atorvastatin 40 mg tablet See Rx Instructions .ROUTE .COMPLEX #90 tab 06/08/20 [Rx Last Taken 01/29/21] metoprolol tartrate 100 mg tablet 100 mg PO BID #180 tab 11/09/20 [Rx Last Taken 01/31/21 0800] ascorbic acid (vitamin C) 500 mg PO BID 01/31/21 [History Last Taken 01/31/21] diclofenac sodium [Voltaren] 1 ea TOPICAL Q6H PRN 01/31/21 [History Last Taken 01/29/21] meloxicam [Mobic] 7.5 mg PO QODAY 01/31/21 [History Last Taken 01/31/21] Allergy/AdvReac Type Severity Reaction Status Date / Time No Known Allergies Allergy Verified 01/31/21 09:16 Family History (Updated 01/31/21 @ 17:[address] Fanny Braden MD) Father Negative FH of ASCVD Father COPD (chronic obstructive pulmonary disease) Surgical History H/O coronary artery bypass surgery (04/04/19) History of coronary artery stent placement (10/29/17) History of electrophysiologic study (04/2019) History of herniorrhaphy History of implantable cardiac defibrillator (ICD) (04/12/19) History of left heart catheterization (04/04/19) Hx of elbow surgery Social History Smoking Status: Former smoker quit date: 03/23/19 pack-years: 75 alcohol intake: former substance use type: does not use ROS ROS Narrative Constitutional: Denies: Anorexia, Chills, Fever, Night Sweats, Weight Change Eyes: Denies: Blurred vision, Cataracts, Conjunctivae Inflammation, Pain, Redness, Vision Change HEENT: Denies: Difficulty Hearing, Difficulty Swallowing, Head Aches, Hearing Changes, Sinus Congestion, Sinus Drainage Cardiovascular: See HPI Respiratory: Denies any cough, admits to shortness of breath at rest and exertion Gastrointestinal: Denies: Abdominal Pain, Nausea, Vomiting Genitourinary: Denies: Dysuria Musculoskeletal: Denies: Joint Pain, Joint stiffness, Joint swelling, Joint Tenderness Skin: Denies: Rash, Wounds Neurological: Denies: Numbness, Tingling, Focal weakness Vital Signs Vital Signs Vital Signs: 01/31/21 09:17 01/31/21 09:20 01/31/21 10:32 Temperature 97.2 F L 97.2 F L 98.5 F Temperature Source Temporal Temporal Oral Pulse Rate 103 H 103 H 107 H Respiratory Rate 35 H 30 H 18 Respiratory Effort Short of Breath Labored Respiratory Pattern Normal Blood Pressure 122/84 H 122/84 H 105/78 Blood Pressure Mean 96 96 87 Pulse Ox 95 95 94 Oxygen Delivery Method Room Air Room Air Room Air 01/31/21 12:00 01/31/21 13:01 Temperature Temperature Source Pulse Rate 102 H 117 H Respiratory Rate 20 H 24 H Respiratory Effort Respiratory Pattern Blood Pressure 114/97 H 123/91 H Blood Pressure Mean 102 101 Pulse Ox 94 95 Oxygen Delivery Method Room Air Room Air Weight Weight: 101.1 kg Body Mass Index (BMI) 27.1 Physical Exam Narrative Physical exam: General: Alert, Oriented x3, Cooperative, No apparent distress, Well developed, in mild respiratory distress HEENT: Atraumatic Oral: Moist Mucosa Neck: Supple Lungs: Diminished, bibasilar crackles Cardiovascular: HS I+II, regular, no murmurs Abdomen: Bowel Sounds Present, Soft, Non Tender Extremities: Bilateral leg edema +1 Results Lab / Micro Data Result Diagrams: 01/31/21 09:00 01/31/21 09:00 Labs: Laboratory Results - last 24 hr 01/31/21 09:00: WBC 6.2, RBC 4.41 L, Hgb 14.2, Hct 43.0, MCV 97.5 H, MCH 32.2 H, MCHC 33.0, RDW Std Deviation 45.0 H, RDW Coeff of Priscila 12.6, Plt Count 271, MPV 9.8, Immature Gran % (Auto) 0.300, Neut % (Auto) 73.3 H, Lymph % (Auto) 13.2 L, [place] % (Auto) 9.7, Eos % (Auto) 3.2, Baso % (Auto) 0.3, Absolute Neuts (auto) 4.6, Absolute Lymphs (auto) 0.82 L, Nucleated RBC % 0 01/31/21 09:00: D-Dimer Quant (PE/DVT) 1.95 H* 01/31/21 09:00: Sodium 142, Potassium 4.2, Chloride 110 H, Carbon Dioxide 25.0, Anion Gap 7, BUN 22 H, Creatinine 0.92, Estim Creat Clear Calc 89.11, Est GFR (MDRD) Af Amer 104, Est GFR (MDRD) Non-Af 86, BUN/Creatinine Ratio 23.8 H, Glucose 132 H, Calcium 9.2, Troponin I High Sens 17.0 Micro: Microbiology 01/31/21 09:45 Mucosa - Nose SARS-CoV-2 Antigen (Rapid) - Final Radiology Impression Chest X-Ray 01/31/21 09:41 IMPRESSION: No active disease. Electronically Signed: Farooq Mancini MD at 10:48 EDT Tel , Service support , Chest CTA 01/31/21 10:31 IMPRESSION: 1. No CT evidence of pulmonary embolism. 2. Small bilateral pleural effusions. 3. Occluded proximal left subclavian artery with reconstitution by the left vertebral artery consistent with subclavian steal. Electronically Signed: Farooq Mancini MD at 11:31 EDT Tel , Service support , Assessment & Plan Assessment/Plan (1) Atrial fibrillation, new onset: (2) Atherosclerosis of coronary artery of [place] heart with angina pectoris: QUALIFIERS: Coronary Disease-Associated Artery/Lesion type: [place] artery Qualified Code(s): I25.119 - Atherosclerotic heart disease of [place] coronary artery with unspecified angina pectoris (3) History of coronary artery stent placement: (4) Essential (primary) hypertension: (5) HLD (hyperlipidemia): QUALIFIERS: Hyperlipidemia type: unspecified Qualified Code(s): E78.5 - Hyperlipidemia, unspecified PLAN: 1. Newly diagnosed A. fib, in a patient with [id number] score of 3 Patient is on metoprolol and amiodarone We will put on Cardizem drip, start on Lovenox twice daily 2D echo, trend cardiac enzymes, check magnesium level, check BNPep Consider cardiology consult if patient continues to be in A. fib Continue home amiodarone and metoprolol 2. Chest pain, likely related to #1, initial troponin is negative EKG shows no acute ST-T changes We will trend troponin 3. Probable acute CHF, last EF of 65% in [facility] We will check BNpep, Lasix 20 mg IV twice daily 4. Elevated D-dimer, CTA is negative for acute PE 5. CAD status post stent, status post CABG, history of AICD, pacemaker Continue Plavix, aspirin, metoprolol 6. Chronic back pain and rib pain, follows with Dr. Alarcon and Dr. Reyes Hold diclofenac gel and meloxicam 7. DVT prophylaxis?on therapeutic Lovenox I discussed and explained in details the various types of CODE STATUS-full code, DNR CCA, DNR CC. Patient could not decide. His was at the bedside. I agree to allow them to discuss amongst themselves. All questions were answered. Time spent discussing CODE STATUS 16 minutes Charges/Coding Visit Charges Inpatient E&M: 60953 Init Hosp L3 Procedures Hospitalists Procedures: 94058 Advncd Care Plan 30 Min
--- NOTE | 2021-01-31 16:26 | EKG12_ITS ---
Test Reason : A FIB/FLUTTER Blood Pressure : / mmHG Vent. Rate : 122 BPM Atrial Rate : 131 BPM P-R Int : 000 ms QRS Dur : 120 ms QT Int : 318 ms P-R-T Axes : 000 013 115 degrees QTc Int : 453 ms Atrial fibrillation with premature ventricular or aberrantly conducted complexes ST & T wave abnormality, consider lateral ischemia Abnormal ECG When compared with ECG of 31-JAN-2021 09:30, MANUAL COMPARISON REQUIRED, DATA IS UNCONFIRMED Confirmed by TIBURCIO WILSON, RADHA ([id number]), graphic editor SHITAL FLOWERS ([id number]) on 02/02/2021 9:48:30 AM Referred By: Fanny Braden Confirmed By:RADHA DEY MD
--- NOTE | 2021-01-31 16:36 | ECHOCS_ITS ---
Reason For Study: Afib, Alutter Procedure This was a 2D Doppler, Color Flow transthoracic echocardiogram. Exam performed portable in patient room. Left Ventricle Normal LV size. Left ventricular systolic function is normal. The estimated ejection fraction is 60 %. No regional wall motion abnormalities noted. Right Ventricle Normal RV size. ICD or pacer leads identified within the right ventricle. Normal systolic function. Atria The left atrium is moderately enlarged. Normal right atrium. ICD or pacer leads identified within the right atrium. Mitral Valve There is mild to moderate mitral annular calcification. Tricuspid Valve Normal tricuspid valve. Mild (1+) tricuspid valve insufficiency. Pulmonary artery systolic pressure is 38 mmHg. Aortic Valve Trisinus/trileaflet aortic valve. Mild focal aortic valve calcification. Pericardium/Pleural No pericardial effusion. Medication Diluted definity 2ml given slow IV push to enhance endocardial definition. MMode/2D Measurements & Calculations LVIDd: 5.1 cm IVSd: 1.4 cm Ao root diam: 3.5 cm LVIDs: 4.0 cm LVPWd: 1.4 cm RVDd: 4.4 cm FS: 22.1 % LAV(MOD-bp): 92.9 ml LVAd ap4: 30.4 cm2 SV(MOD-sp4): 63.0 ml LAV(MOD-bp) Indexed: 41.1 ml/m2 LVLd ap4: 7.2 cm LAV(MOD-sp2): 92.7 ml EDV(MOD-sp4): 106.7 ml LAV(MOD-sp4): 85.6 ml EDV(sp4-el): 109.5 ml LVAs ap4: 17.3 cm2 LVLs ap4: 5.6 cm ESV(MOD-sp4): 43.7 ml ESV(sp4-el): 45.7 ml EF(MOD-sp4): 59.0 % EF(sp4-el): 58.2 % SV(sp4-el): 63.8 ml LA dimension(2D): 5.2 cm LA A4 area: 25.5 cm2 RA A4 area: 19.5 cm2 Doppler Measurements & Calculations MV E max di: 113.8 cm/sec Ao V2 max: 176.7 cm/sec LV V1 max: 112.9 cm/sec Ao max P.5 mmHg LV V1 max P.2 mmHg Ao V2 mean: 121.6 cm/sec Ao mean P.5 mmHg Ao V2 VTI: 30.8 cm PA V2 max: 74.2 cm/sec TR max di: 291.6 cm/sec TR max P.0 mmHg ECHO/Echo Complete W/ Contrast Interpretation Summary Normal LV size. Left ventricular systolic function is normal. The estimated ejection fraction is 60 %. The left atrium is moderately enlarged. ICD or pacer leads identified within the right ventricle. Pulmonary artery systolic pressure is 38 mmHg. Ordering Physician: Fanny Braden Referring Physician: Jarad Mcwilliams Chi Performed By: Alice Lala, SHIRA, RVT
[2021-01-31 17:27] LABS: BNP,B-Type NATRIURETIC PEPTIDE 418.2 pg/mL (0-100)
[2021-01-31 17:30] LABS: Troponin-I HS 15.5 pg/mL (3.0-78.5)
[2021-01-31] MEDS: Furosemide 20 MG/2 ML VIAL IV (17:36)
[2021-01-31] MEDS: 0.9% Saline Lock 10 ML Syringe IV (17:36)
[2021-01-31 19:13] LABS: Troponin-I HS 15.9 pg/mL (3.0-78.5)
[2021-01-31] MEDS: Metoprolol Tartrate 100 MG Tablet PO (19:50)
[2021-01-31] MEDS: Atorvastatin Calcium 40 MG Tablet PO (19:51)
[2021-01-31] MEDS: Latanoprost 0.005% 1 Bottle 1 DRP LEFT EYE (19:52)
[2021-02-01] VITALS (24 sets, daily range): BP systolic 117–154; BP diastolic 41–112; PULSE 77–108; RESP 16–32; TEMP 36.2–36.8; O2SAT 88–95
[2021-02-01 06:12] LABS: Absolute Lymphocyte Count 1.16 X10^3/uL (0.83-4.51); Absolute Neutrophil Count 3.8 X10^3/uL (2.0-7.7); Basophil# 0.03 X10^3/uL; Basophil% 0.5 % (0-1); Eosinophil# 0.17 X10^3/uL; Eosinophils% 2.9 % (0-5); Hematocrit 38.7 % (40-54); Lymphocyte # 1.16 X10^3/ul (0.83-4.51); Lymphocyte % 19.5 % (19-41); Mean Corp Hgb Conc 33.6 g/dL (32-36); Mean Corpuscular Hgb 32.6 pg (27.0-32.0); Mean Platelet Vol. 9.9 fl (6.2-12.0); Monocyte# 0.79 X10^3/uL; Monocyte% 13.3 % (0-10); NRBC Flagged by Analyzer 0 % (0-5); Neutrophil # 3.79 X10^3/uL (2.7-7.7); Neutrophil % 63.6 % (47-70); Platelet Count 248 K/mm3 (150-450); RBC Distribution Width CV 12.7 % (11.6-14.6); RBC Distribution Width SD 44.8 fl (35.1-43.9); Red Blood Count 3.99 M/mm3 (4.6-6.2)
[2021-02-01 06:42] LABS: AST(SGOT) 23 U/L (15-37); Alanine Aminotransfer ALT/SGPT 42 U/L (16-61); Albumin, Serum 3.2 g/dL (3.2-5.0); Alkaline Phosphatase 81 U/L (45-117); Anion Gap 6 (5-15); BUN 22 mg/dL (7-18); BUN/Creat Ratio 26.9 RATIO (10-20); Calcium,Total 9.2 mg/dL (8.5-10.1); Chloride 108 mmol/L (98-107); Creatinine, Serum 0.82 mg/dL (0.70-1.30); EST Glomerular Filtration Rate 98 mL/min (>60); Est Glom Filt Rate - Afr Amer 119 mL/min (>60); Estimated Creatinine Clearance 99.97 ml/min; Globulin 3.3 g/dL (2.2-4.2); Glucose 144 mg/dL (74-106); Potassium 4.4 mmol/L (3.5-5.1); Protein, Total 6.5 g/dL (6.4-8.2); Sodium Level 142 mmol/L (136-145)
[2021-02-01] MEDS: Multivitamins,Therapeutic Tablet 1 TABLET PO (07:39)
[2021-02-01] MEDS: Gabapentin 100 MG Capsule PO (07:40)
[2021-02-01] MEDS: Metoprolol Tartrate 100 MG Tablet PO ×2 (07:40→20:35)
[2021-02-01] MEDS: Venlafaxine XR 37.5 MG Capsule PO (07:40)
[2021-02-01] MEDS: Aspirin E.C. 81 MG Tablet PO (07:40)
[2021-02-01] MEDS: Ascorbic Acid 500 MG Tablet 1000 MG PO (07:40)
[2021-02-01] MEDS: Clopidogrel Bisulfate 75 MG Tablet PO (07:40)
[2021-02-01] MEDS: Amiodarone 200 MG Tablet PO (07:42)
[2021-02-01] MEDS: Enoxaparin 100 MG/ML Syringe SC ×2 (10:16→20:26)
[2021-02-01] MEDS: Furosemide 20 MG/2 ML VIAL IV ×2 (10:16→17:40)
[2021-02-01] MEDS: 0.9% Saline Lock 10 ML Syringe IV ×2 (10:17→17:39)
--- NOTE | 2021-02-01 10:55 | CASEMGMT ---
RN CM CLOTHES WRINGER CM to room to meet with patient for initial transition planning/care coordination assessment. RN CM introduced self and role at [facility]. Pt voices understanding and consents to assessment at this time. Pt resting in bed in no distress at this time. Pt is A/O at this time and answers all questions appropriately. Care providers, pharmacy, and demographics verified/updated at this time. PCP: Dr Mcwilliams Specialists: Dr Torres-cardiology, Dr Reyes- pain mgmt [facility]erred [facility]acy: [facility] Insurance: [employer] Prescription Benefit: Yes LNOK: , Katherine, Son, Jaime Living Arrangements: Lives w/his , Katherine, in one-story home w/basement. 2 bathrooms and bedroom on main floor. Pt uses the bathroom/shower in the basement. Independent w/ADL's. /pt share home tasks. Transportation: Pt states drives self and states no transportation concerns at this time. also drives. DME: Denies using any DME and denies needs. HHC/SNF: No hx of SNF. Had HHC in the past after CABG. Denies need for HHC @ discharge. Pt wishes to return home and states has no concerns with going home at time of discharge. CM to follow for any discharge planning/needs. Pt voices concerns/needs at this time. Advised pt to ask for CM if any questions/concerns/needs arise. Voices understanding. PLAN: Home w/family support and discharge plans in place. Anticipate pt will discharge home on either Eliquis or Xarelto--pt will need savings card. CM to follow. Anila NAQVI RN, CM
[2021-02-01] MEDS: dilTIAZem 60 MG Tablet PO ×2 (11:22→20:27)
--- NOTE | 2021-02-01 20:16 | PN.HOSP_ITS ---
Subjective Subjective Patient was seen and examined today, his echocardiogram showed a normal EF, he has mild pulmonary hypertension. I talked briefly with cardiology about his care today (Dr. Torres), I have decided to stop the patient's Cardizem drip today and institute oral Cardizem. If this is successful in keeping his rate control, I will transition the patient over to time release Cardizem tomorrow. Objective Data Objective Data Vital Signs: Vital Signs Temp Pulse Resp BP Pulse Ox 98.2 F 90 18 136/41 H 94 02/01/21 17:45 02/01/21 17:45 02/01/21 17:45 02/01/21 17:45 02/01/21 17:45 Oxygen Delivery Method Room Air Weight: 95.5 kg Body Mass Index (BMI) 26.5 Intake & Output: Intake and Output for Last 24 Hours 01/30/21 01/31/21 02/01/21 23:59 23:59 23:59 Intake Total 403.75 / 413.75 642.83 / 642.83 Output Total 1125 / 1125 Balance 403.75 / 38.75 -482.17 / -482.17 Medical Nutrition Assessment Dietitian: Nutrition Therapy Diagnosis Start: 02/01/21 13:35 Freq: Status: Active Protocol: Document 02/01/21 15:40 RMA (Rec: 02/01/21 15:40 RMA [id number]) Nutrition Malnutrition Evidence of Malnutrition Exists No Intake Problem Inadequate Oral Intake Etiology related to reported decreased appetite Signs/Symptoms as evidenced by ~50% intake at meals and possible wt loss. Status Active Problem Recommendation Dietitian Recommendations/Changes Will continue cardiac diet as ordered. Pt refusing ONS at this time; will reoffer as needed. Diet education as indicated prior to d/c. Trend weights closely. Lab / Micro Data Result Diagrams: 02/01/21 05:00 02/01/21 05:00 Labs: Laboratory Results - last 24 hr 01/31/21 22:44: Troponin I High Sens 18.0 02/01/21 05:00: WBC 6.0, RBC 3.99 L, Hgb 13.0, Hct 38.7 L, MCV 97.0 H, MCH 32.6 H, MCHC 33.6, RDW Std Deviation 44.8 H, RDW Coeff of Priscila 12.7, Plt Count 248, MPV 9.9, Immature Gran % (Auto) 0.200, Neut % (Auto) 63.6, Lymph % (Auto) 19.5, [place] % (Auto) 13.3 H, Eos % (Auto) 2.9, Baso % (Auto) 0.5, Absolute Neuts (auto) 3.8, Absolute Lymphs (auto) 1.16, Nucleated RBC % 0 02/01/21 05:00: Sodium 142, Potassium 4.4, Chloride 108 H, Carbon Dioxide 28.0, Anion Gap 6, BUN 22 H, Creatinine 0.82, Estim Creat Clear Calc 99.97, Est GFR (MDRD) Af Amer 119, Est GFR (MDRD) Non-Af 98, BUN/Creatinine Ratio 26.9 H, Glucose 144 H, Calcium 9.2, Total Bilirubin 0.80, AST 23, ALT 42, Alkaline Phosphatase 81, Total Protein 6.5, Albumin 3.2, Globulin 3.3, Albumin/Globulin Ratio 1.0 Micro: Microbiology 01/31/21 09:45 Mucosa - Nose SARS-CoV-2 Antigen (Rapid) - Final Radiography Diagnostic Testing: Radiology Impression Echocardiogram 01/31/21 16:36 Interpretation Summary Normal LV size. Left ventricular systolic function is normal. The estimated ejection fraction is 60 %. The left atrium is moderately enlarged. ICD or pacer leads identified within the right ventricle. Pulmonary artery systolic pressure is 38 mmHg. Ordering Physician: Fanny Braden Referring Physician: Jarad Mcwilliams Chi Performed By: Alice Lala, SHIRA, RVT Physical Exam Const alert, oriented x3, no apparent distress and healthy appearing General Appearance: cooperative, well kempt and well developed Orientation / Consciousness: awake, oriented to person, oriented to place and oriented to time HEENT normocephalic, head/scalp atraumatic and moist oral mucous membranes Head and Scalp: normocephalic Eyes PERRL, EOMs intact bilaterally and conjunctivae normal Neck nuchal rigidity, supple, no JVD, thyroid normal and no carotid bruits General: trachea midline Resp normal respiratory effort, no retractions, no use of accessory muscles and clear to auscultation bilaterally Auscultation: Negative for rales, rhonchi or wheezes Cardio no murmurs, no rub and no gallops Cardio Narrative: Heart rate and rhythm is irregular GI normal to inspection, nondistended, normoactive bowel sounds, soft to palpation, non-tender and non-distended Extremity no clubbing, cyanosis or edema Skin no rashes or lesions noted General Skin Exam: no breakdown Neuro oriented x3, CN's II-XII intact bilaterally, no focal motor deficits and no s ensory deficits noted Sensorium / Orientation: awake and alert Speech: speech normal Psych thought process normal and affect normal Assessment & Plan Assessment/Plan (1) Atrial fibrillation, new onset: PLAN: 1. 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
[2021-02-01] MEDS: Latanoprost 0.005% 1 Bottle 1 DRP LEFT EYE (20:27)
[2021-02-01] MEDS: BRIMONIDINE 0.2% 5ML BOTTLE 1 DRP LEFT EYE (21:59)
[2021-02-02] VITALS (7 sets, daily range): BP systolic 122–137; BP diastolic 66–74; PULSE 89–104; RESP 16–18; TEMP 36.4–36.8; O2SAT 92–95
[2021-02-02] MEDS: dilTIAZem 60 MG Tablet PO (06:04)
[2021-02-02] MEDS: Amiodarone 200 MG Tablet PO (08:24)
[2021-02-02] MEDS: Multivitamins,Therapeutic Tablet 1 TABLET PO (08:24)
[2021-02-02] MEDS: Venlafaxine XR 37.5 MG Capsule PO (08:24)
[2021-02-02] MEDS: Gabapentin 100 MG Capsule PO (08:24)
[2021-02-02] MEDS: dilTIAZem CD 240 MG Capsule PO (08:24)
[2021-02-02] MEDS: Clopidogrel Bisulfate 75 MG Tablet PO (08:24)
[2021-02-02] MEDS: Metoprolol Tartrate 100 MG Tablet PO (08:25)
--- NOTE | 2021-02-02 09:41 | PCM.DC ---
Discharge Instructions Diet Discharge Diet: No restrictions Activity Discharge Activity: Return to Normal Activity Weight Bearing Status: Full weight bearing Follow Up Care Test Results: Test results from this visit will be discussed in further detail at your follow-up appointment, if applicable. Discharge Plan Admission Admit Date/Time: 01/31/21 13:26 Primary Reason for Your Visit: atrial fibrillation Attending Provider: Sukumar Abdul Primary Care Provider: Jarad Mcwilliams Chi Discharge Orders/Prescriptions Prescriptions: New diltiazem HCl 240 mg Capsule,Extended Release 24hr 240 mg PO DAILY Qty: 30 RF: 0 Continued acetaminophen [Arthritis Pain Relief (acetam)] 650 mg tablet extended release 650 mg PO PRN PRN (Reason: Pain Or Fever) RF: 0 metoprolol tartrate 100 mg tablet 100 mg PO BID Qty: 180 RF: 3 multivitamin Tablet 1 tab PO DAILY RF: 0 gabapentin 100 mg capsule 100 cap PO BID RF: 0 latanoprost 0.005 % drops 1 drp LEFT EYE QHS RF: 0 brimonidine 0.1 % drops 1 drp LEFT EYE QHS RF: 0 diclofenac sodium 1 % Gel 1 ea TOPICAL Q6H PRN (Reason: pain and stiffness) RF: 0 ascorbic acid (vitamin C) 500 mg Capsule 500 mg PO BID RF: 0 amiodarone 200 mg tablet 200 mg PO DAILY Qty: 90 RF: 3 clopidogrel 75 mg tablet 75 mg PO DAILY Qty: 90 RF: 3 atorvastatin 40 mg tablet See Rx Instructions .ROUTE .COMPLEX Qty: 90 RF: 3 Discontinued aspirin 81 MG tablet 81 mg PO DAILY@0800 Qty: 30 RF: 0 meloxicam [Mobic] 7.5 mg Tablet 7.5 mg PO QODAY RF: 0 Referrals / Follow Up: Fish Torres MD [STAFF PHYSICIAN] - See Referral Note (in three weeks, call for appointment) Jarad Mcwilliams Chi, MD [Primary Care Provider] - Within 2 Weeks Disposition Disposition (needs filled in before D/C Order can be placed): Home, Self Care
--- NOTE | 2021-02-02 10:33 | CASEMGMT ---
[facility] palliative screening tool completed and pt does not meet criteria at this time. SStaten RN CM
--- NOTE | 2021-02-02 10:43 | CASEMGMT ---
Pt to be sent home on [email or web address] and [facility] Co-pay is $33/month and pt provided with an [employer] 30 day free trial card. Pt voices no further questions/concerns/needs. Christopher MTZ CM
--- NOTE | 2021-02-03 14:50 | CASEMGMT ---
RN CM Discharge Follow-up Phone Call: LUCIO: Tariq Strata: 3 Call Date: 02/03/21 Discharge Date: 02/02/21 Time of Call: 1450 Duration: 1 Admitting Diagnosis: Chest Pain, Afib with RVR RN CM attempted to complete follow-up phone call after recent hospitalization. No answer, voice message left with return contact information.
--- NOTE | 2021-02-05 08:53 | PCM.DC.SUM ---
Providers Date of Admission: 01/31/21 Date of Discharge: 02/02/21 Primary Care Physician: Dr. Jarad Mcwilliams MD Reason For Visit: CHEST PAIN, A FIB WITH RVR Diagnosis Discharge Diagnosis (1) Atrial fibrillation, new onset: Status: Acute Code(s): I48.91 - Unspecified atrial fibrillation Plan: (1) Atrial fibrillation, new onset: PLAN: 1. New onset atrial fibrillation with RVR #2 atherosclerotic heart disease #3 mild acute diastolic congestive heart failure #4 hyperlipidemia #5 essential hypertension #6 degenerative disc disease of the thoracic spine Medications at Discharge Home Medications brimonidine 1 drp LEFT EYE QHS 03/23/19 latanoprost 1 drp LEFT EYE QHS 03/23/19 acetaminophen 650 mg tablet,extended release 650 mg PO PRN PRN tab 04/27/19 multivitamin 1 tab PO DAILY 03/13/20 gabapentin 100 mg capsule 100 cap PO BID 03/27/20 amiodarone 200 mg tablet 200 mg PO DAILY #90 tab 04/13/20 clopidogrel 75 mg tablet 75 mg PO DAILY #90 tab 04/13/20 atorvastatin 40 mg tablet See Rx Instructions .ROUTE .COMPLEX #90 tab 06/08/20 metoprolol tartrate 100 mg tablet 100 mg PO BID #180 tab 11/09/20 ascorbic acid (vitamin C) 500 mg PO BID 01/31/21 diclofenac sodium 1 ea TOPICAL Q6H PRN 01/31/21 apixaban [Eliquis] 5 mg PO BID #60 tab 02/02/21 diltiazem HCl 240 mg PO DAILY #30 cap 02/02/21 Hospital Course Operations None Procedures 2-D Echocardiogram Summary of Care Provided Minutes Spent on Discharge: 33 Hospital Course: Patient was seen in the emergency room at [facility] with a chief complaint of feeling unwell x48 hours, he had been short of breath and had chest tightness. Evaluation in the emergency room included an EKG which showed the patient to be in atrial fibrillation, chest CTA showed no evidence of thrombus, patient's beta natruretic peptide was elevated. Troponin was not elevated. Patient was admitted to PCU, he was initially placed on Cardizem drip, he was given IV Lasix and had an echocardiogram performed which showed an EF of 60%. Patient improved during his hospitalization and his rate came under control with oral Cardizem. On 02/02/2021, patient was seen and examined: On examination he appeared in good health and spirits. Vital signs as documented. Skin warm and dry and without overt rashes. Neck without JVD, neck was supple, trachea midline, thyroid was normal. Lungs clear bilaterally, normal air movement was noted. Heart exam notable for irregular rhythm, normal sounds and absence of murmurs, rubs or gallops. Abdomen unremarkable and without evidence of organomegaly, masses, or abdominal aortic enlargement. Bowel sounds are present, abdomen is not distended. Extremities nonedematous, no cyanosis was noted, no clubbing was noted. Neuro: Cranial nerves II through XII are grossly intact, no focal motor deficits were noted, sensation to light touch and pinprick intact, motor exam 5/5 throughout. Psych: Patient is alert and oriented x3, he does not appear anxious or depressed, he does not appear agitated. On 02/02/2021, patient was discharged home in stable condition. Weight / BMI Weight Weight: 95.2 kg Body Mass Index (BMI) 26.5 ABG / Lab / Microbiology Data Result Diagrams: 02/01/21 05:00 02/01/21 05:00 Microbiology: Microbiology 01/31/21 09:45 Mucosa - Nose SARS-CoV-2 Antigen (Rapid) - Final D/C Instructions Discharge Diet: No restrictions Weight Bearing Status: Full weight bearing Meaningful Use Info Meaningful Use Diagnoses (Choose all that apply): CHF CHF STEVE/ARB ordered at discharge?: No Reason STEVE/ARB not ordered?: Not indicated Documented LVEF (%): 60 Discharge Plan Admission Admit Date/Time: 01/31/21 13:26 Primary Reason for Your Visit: atrial fibrillation Attending Provider: Sukumar Abdul Primary Care Provider: Jarad Mcwilliams Chi Discharge Orders/Prescriptions Prescriptions: New diltiazem HCl 240 mg Capsule,Extended Release 24hr 240 mg PO DAILY Qty: 30 RF: 0 Eliquis 5 mg tablet 5 mg PO BID Qty: 60 RF: 0 Continued acetaminophen [Arthritis Pain Relief (acetam)] 650 mg tablet extended release 650 mg PO PRN PRN (Reason: Pain Or Fever) RF: 0 metoprolol tartrate 100 mg tablet 100 mg PO BID Qty: 180 RF: 3 multivitamin Tablet 1 tab PO DAILY RF: 0 gabapentin 100 mg capsule 100 cap PO BID RF: 0 latanoprost 0.005 % drops 1 drp LEFT EYE QHS RF: 0 brimonidine 0.1 % drops 1 drp LEFT EYE QHS RF: 0 diclofenac sodium 1 % Gel 1 ea TOPICAL Q6H PRN (Reason: pain and stiffness) RF: 0 ascorbic acid (vitamin C) 500 mg Capsule 500 mg PO BID RF: 0 amiodarone 200 mg tablet 200 mg PO DAILY Qty: 90 RF: 3 clopidogrel 75 mg tablet 75 mg PO DAILY Qty: 90 RF: 3 atorvastatin 40 mg tablet See Rx Instructions .ROUTE .COMPLEX Qty: 90 RF: 3 Discontinued aspirin 81 MG tablet 81 mg PO DAILY@0800 Qty: 30 RF: 0 meloxicam [Mobic] 7.5 mg Tablet 7.5 mg PO QODAY RF: 0 Referrals / Follow Up: Fish Torres MD [STAFF PHYSICIAN] - 03/03/21 11:15 am (in three weeks, call for appointment) Jarad Mcwilliams Chi, MD [Primary Care Provider] - 02/11/21 1:20 pm Disposition Disposition (needs filled in before D/C Order can be placed): Home, Self Care Charges/Coding Visit Charges Inpatient E&M: 46601 Disch Hosp
== END 2021-02-02 12:05 | disposition home or self-care (01) | DRG 308 ==
LOC: ED 13:05 → PCU 13:41
PROVIDERS: Admitting Provider Internal Medicine; Emergency Provider Emergency Medicine; PCP Family Medicine Geriatric Medicine; Referring Provider Internal Medicine; Visit Provider Internal Medicine
DX: I48.91 Unspecified atrial fibrillation (principal); I50.31 Acute diastolic (congestive) heart failure; I25.10 Atherosclerotic heart disease of native coronary artery without angina pectoris; E78.5 Hyperlipidemia, unspecified; I11.0 Hypertensive heart disease with heart failure; M51.34 Other intervertebral disc degeneration, thoracic region; K21.9 Gastro-esophageal reflux disease without esophagitis; G89.29 Other chronic pain; I25.2 Old myocardial infarction; I27.20 Pulmonary hypertension, unspecified; Z79.899 Other long term (current) drug therapy; Z79.82 Long term (current) use of aspirin; Z79.02 Long term (current) use of antithrombotics/antiplatelets; Z95.1 Presence of aortocoronary bypass graft; Z95.810 Presence of automatic (implantable) cardiac defibrillator
CPT/HCPCS: 36415; 71045; 71275; 80048; 80053; 83880; 84484; 85025; 85379; 87426; 93005; 93306; 97802; 99285; 99406; Q9957; Q9967; A4216; C8929; J1940; J3490

== ENCOUNTER → 2021-02-11 12:50 | Outpatient (CLI) | payer MEDICARE, OTHER, SELFPAY ==
[2019-08-07 13:34] VITALS: BMI 27.5
[2021-01-31 14:52] VITALS: BMI 26.5
[2021-02-11 13:41] LABS: Absolute Lymphocyte Count 0.94 X10^3/uL (0.83-4.51); Absolute Neutrophil Count 6.8 X10^3/uL (2.0-7.7); Basophil# 0.03 X10^3/uL; Basophil% 0.3 % (0-1); Eosinophil# 0.21 X10^3/uL; Eosinophils% 2.4 % (0-5); Hematocrit 40.6 % (40-54); Hemoglobin 13.5 g/dL (13.0-16.5); Lymphocyte # 0.94 X10^3/ul (0.83-4.51); Lymphocyte % 10.5 % (19-41); Mean Corp Hgb Conc 33.3 g/dL (32-36); Mean Corpuscular Hgb 31.9 pg (27.0-32.0); Mean Platelet Vol. 9.8 fl (6.2-12.0); Monocyte# 0.88 X10^3/uL; Monocyte% 9.9 % (0-10); NRBC Flagged by Analyzer 0 % (0-5); Neutrophil # 6.83 X10^3/uL (2.7-7.7); Neutrophil % 76.5 % (47-70); Platelet Count 264 K/mm3 (150-450); RBC Distribution Width CV 12.5 % (11.6-14.6); RBC Distribution Width SD 44.2 fl (35.1-43.9); Red Blood Count 4.23 M/mm3 (4.6-6.2); White Blood Count 8.9 K/mm3 (4.4-11.0)
[2021-02-11 14:00] LABS: Vitamin D,25 Hydroxy 53.4 ng/mL
[2021-02-11 14:03] LABS: AST(SGOT) 25 U/L (15-37); Alanine Aminotransfer ALT/SGPT 44 U/L (16-61); Albumin, Serum 3.4 g/dL (3.2-5.0); Alkaline Phosphatase 95 U/L (45-117); Anion Gap 10 (5-15); BUN 19 mg/dL (7-18); BUN/Creat Ratio 20.9 RATIO (10-20); Calcium,Total 9.2 mg/dL (8.5-10.1); Chloride 106 mmol/L (98-107); Creatinine, Serum 0.91 mg/dL (0.70-1.30); EST Glomerular Filtration Rate 87 mL/min (>60); Est Glom Filt Rate - Afr Amer 106 mL/min (>60); Globulin 3.4 g/dL (2.2-4.2); Glucose 122 mg/dL (74-106); Potassium 4.4 mmol/L (3.5-5.1); Protein, Total 6.8 g/dL (6.4-8.2); Sodium Level 139 mmol/L (136-145); Thyroid Stim Hormone (TSH) < 0.01 uIU/mL (0.358-3.74)
[2021-02-12 09:47] LABS: T3 Uptake 54 % (33-40); T4 Free Direct > 8.00 ng/dL (0.76-1.46)
== END ==
PROVIDERS: PCP Family Medicine Geriatric Medicine; Visit Provider Family Medicine Geriatric Medicine
DX: E11.9 Type 2 diabetes mellitus without complications (principal); E55.9 Vitamin D deficiency, unspecified; I10 Essential (primary) hypertension; E05.90 Thyrotoxicosis, unspecified without thyrotoxic crisis or storm
CPT/HCPCS: 36415; 80053; 82306; 84439; 84443; 84479; 85025

== ENCOUNTER 2021-07-26 13:58 | Inpatient (IN) | payer MEDICARE, OTHER, SELFPAY ==
[2019-08-07 13:34] VITALS: BMI 27.5
[2021-07-26] VITALS (18 sets, daily range): BP systolic 83–186; BP diastolic 45–100; PULSE 70–108; RESP 16–25; TEMP 36.9–37.2; O2SAT 92–99; BMI 28.8
--- NOTE | 2021-07-26 14:06 | HP.PCM.HOS_ITS ---
HPI - General General Date of Admission: 07/26/21 HPI Narrative RIGO DIAZ, is a 70 M with multiple comorbidities including coronary artery disease status post stents and CABG three-vessel and recent diagnosis of A. fib about 4 -5 months ago is being directly admitted to PCU from [facility] ER. 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 He felt mild dizziness, lightheadedness and vague posterior headache at that tournament but denied palpitation, shortness of breath, passing out, chest pain/tightness or heaviness. He had AICD inserted in [facility]. Incidentally, patient was found COVID rapid antigen positive in ER but denies new onset cough, fever, chills, diaphoresis, loss of taste/smell, nausea, vomiting or diarrhea. He is not COVID vaccinated. He had flu shot every year and last time 2020. His was recently ill with COVID-19 and tested positive but she is vaccinated. In ER, patient was found A. fib with RVR and was given Cardizem 25 mg IV bolus, normal saline bolus and then started on Cardizem drip at 15 mg/h. Patient said after the Cardizem drip his heart rate was around 80s but sometimes to spike to 104/min. High-sensitivity troponin 18.6, normal. Serum potassium 3.2 with normal sodium. BUN/creatinine 15/1.25. CT head no evidence of acute cortical CVA, mass-effect or ICH or skull fracture. EMS EKG shows A. fib with RVR at 146 bpm. Twelve-lead EKG from ER on 25 July 2021 shows A. fib with RVR with occasional ventricular paced complexes. Incomplete LBBB probably from ICD. Nonspecific ST-T abnormality inferior lateral leads [facility]. Labs from dopamine reviewed. 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) Stenosis of left subclavian artery Sustained ventricular tachycardia (03/24/19) Home Medications brimonidine 1 drp LEFT EYE QHS 03/23/19 [History Last Taken 07/25/21 22:00] latanoprost 1 drp LEFT EYE QHS 03/23/19 [History Last Taken 07/25/21 22:00] acetaminophen 650 mg tablet,extended release 650 mg PO Q8H PRN PRN tab 04/27/19 [History Last Taken 07/25/21 08:00] multivitamin 1 tab PO DAILY 03/13/20 [History Last Taken 07/25/21 10:00] gabapentin 100 mg capsule 100 cap PO BID 03/27/20 [History Last Taken 07/25/21 22:00] ascorbic acid (vitamin C) 1,000 mg PO BID 01/31/21 [History Last Taken 07/25/21 22:00] apixaban [Eliquis] 5 mg PO BID 07/26/21 [History Last Taken 07/26/21 09:00] atorvastatin 40 mg PO QHS 07/26/21 [History Last Taken 07/25/21 22:00] diltiazem HCl [Cardizem CD] 240 mg PO DAILY 07/26/21 [History Last Taken 07/25/21 08:00] metoprolol tartrate 100 mg PO BID 07/26/21 [History Last Taken 07/25/21 22:00] Allergy/AdvReac Type Severity Reaction Status Date / Time No Known Allergies Allergy Verified 03/17/21 11:11 Family History Father Negative FH of ASCVD Hypertension Father COPD (chronic obstructive pulmonary disease) Mother Hypertension Surgical History H/O coronary artery bypass surgery (04/04/19) History of coronary artery stent placement (10/29/17) History of electrophysiologic study (04/2019) History of herniorrhaphy History of implantable cardiac defibrillator (ICD) (04/12/19) History of left heart catheterization (04/04/19) Hx of elbow surgery Social History household members: none Smoking Status: Former smoker quit date: 03/23/19 pack-years: 75 alcohol intake: former substance use type: does not use ROS ROS Narrative Constitutional: Does not report fatigue. ICD firing allergies which she denies. HEENT: Reports systems reviewed and no addt'l complaints, except as documented Respiratory/Chest: Denies chest pain, shortness of breath at rest or with exertion. Mild leg swelling/edema. Gastrointestinal: Denies coffee ground emesis, hematemesis or vomiting Genitourinary: Denies burning urination or new urinary tract symptoms Musculoskeletal: Reports joint pain and limited range of motion Neurologic: Denies seizure-like activity skin: No ulcer. No rash Endocrinology: Reports systems reviewed and no addt'l complaints, except as documented Hematologic/Lymphatic: Reports systems reviewed and no addt'l complaints, except as documented Rest 14 ROS are negative except as mentioned in HPI Vital Signs Vital Signs Vital Signs: 07/26/21 13:44 07/26/21 13:53 07/26/21 13:57 Pulse Rate 108 H 103 H 108 H Respiratory Rate 18 18 Respiratory Effort Normal Non-Labored Blood Pressure [BP] Blood Pressure Mean [BP] Blood Pressure Source [BP] Blood Pressure Position [BP] Blood Pressure Location [BP] Pulse Ox 98 98 Oxygen Delivery Method Room Air Room Air 07/26/21 14:03 Pulse Rate 98 Respiratory Rate 16 Respiratory Effort Blood Pressure [BP] 186/88 H Blood Pressure Mean [BP] 120 Blood Pressure Source [BP] Monitor Blood Pressure Position [BP] Semi-Fowlers Blood Pressure Location [BP] Right Arm Pulse Ox 96 Oxygen Delivery Method Room Air Physical Exam Narrative General: Alert, Oriented x3, Cooperative, overweight, BMI 28.8 kg/m? HEENT: Atraumatic, PERRLA, EOMI, Normocephalic Oral: No Gingival or Mucosal Lesions/ Ulcerations Neck: Supple, No JVD, Negative Carotid Bruits Lungs: Air entry diminished in bilateral lung bases. No crepitation/rhonchi. No hypoxia/tachypnea. Cardiovascular: Irregular rate and rhythm, left subclavicular ICD. CABG scar. No murmurs Abdomen: Bowel Sounds Present, Soft, Non Tender, Non-Distended : No renal angle tenderness. No suprapubic tenderness. Extremities: Mild bilateral ankle pitting edema, Capillary Refill Less than 3 Seconds Skin: No rashes, No breakdown Musculoskeletal: No Tenderness to Palpation of Joints or Extremities. Bilateral knee and hip arthritis Neurological: Cranial nerves II-XII grossly intact, DTR 2+/4 and Symmetrical, Neuro grossly intact Psych/Mental Status: Normal Affect, Appropriate. Assessment & Plan Assessment/Plan (1) Inappropriate shocks from ICD (implantable cardioverter-defibrillator): QUALIFIERS: Encounter type: initial encounter Qualified Code(s): T82.198A - Other mechanical complication of other cardiac electronic device, initial encounter (2) Paroxysmal atrial fibrillation with RVR: PLAN: 1. A. fib with RVR: Currently heart rate is controlled on Cardizem drip. Patient is being admitted in PCU. Titrate down the dose of Cardizem drip to keep heart rate in 90s and then switch to oral Cardizem. BP 149/100. Repeat troponin elevated 590, BNP 207. Magnesium 1.7. Last echo in January 2021 EF 60%, LA moderately enlarged, PASP 38 mmHg. Patient already on Eliquis 5 mg twice daily. Continue metoprolol 100 mg p.o. twice daily. Serial high- sensitivity troponins. TSH tomorrow a.m. 2. AICD shock: ICD interrogation ordered. Further as per ICD interrogation. Sizing Machine Tender consulted. 3. Chronic heart failure with preserved EF, coronary artery disease status post stents and CABG, history of NSVT: BNP elevated but chest x-ray done in pulmonary in ER no acute cardio pulmonary findings. Twelve-lead EKG shows A. fib with RVR. Patient does not have symptoms and signs of acute heart failure. 4. Hypertension, dyslipidemia: Fasting for tomorrow a.m. Blood pressure elevated, uncontrolled. Monitor and adjust medications accordingly. 5 history of multiple lung nodules and history of degenerative disc disease of thoracic spine and chronic degenerative joint disease: Patient quit smoking 2 years ago. VTE prophylaxis: Apixaban 5 mg p.o. twice daily. Discontinue if platelet count drops less than 50,000 or hemoglobin less than 8 g% Living will/advanced directive/end of life care: Patient does have living will or advanced directive. After discussion of benefits/risks procedures involved with full code, DNR CC arrest and DNR CC, the patient opted for DNR CC arrest, no intubation Patient doesn't want artificial life support including intubation, tube feed, ventilator and/chest compression, central venous catheter, vasopressor and DC shock if needed Total time spent in [id number] encounter in discussion of advanced directive 16 minutes. Charges/Coding Visit Charges Inpatient E&M: 15430 Init Hosp L3 Procedures Hospitalists Procedures: 16279 Advncd Care Plan 30 Min
[2021-07-26 14:54] LABS: Magnesium 1.7 mg/dL (1.6-2.6); Troponin-I HS 590 pg/mL (3.0-78.0)
[2021-07-26 15:04] LABS: BNP,B-Type NATRIURETIC PEPTIDE 207.6 pg/mL (0-100)
[2021-07-26] MEDS: Metoprolol Tartrate 100 MG Tablet PO ×2 (15:06→21:07)
--- NOTE | 2021-07-26 16:52 | CON.PCM.CA_ITS ---
Assessment & Plan Assessment/Plan (1) Paroxysmal atrial fibrillation with RVR: PLAN: He appears to have atrial fibrillation with rapid ventricular response rate which is paroxysmal at this time. I would recommend that we slow down his rate with intravenous diltiazem as well as amiodarone. He recently had an echocardiogram which demonstrated preserved ejection fraction. He will continue with his anticoagulation. Depending on further findings further recommendations will be made. At this particular time however it appears that his ventricular response rate is fairly controlled. (2) History of implantable cardiac defibrillator (ICD): PLAN: He does have an ICD in place and it appears that his ICD discharge on the basis of the atrial flutter with a rapid ventricular response rate. The plan was to keep him anticoagulated and put him back on intravenous amiodarone. He had previously had some issues with his thyroid and we may need to have him see the model maker plaster for the above. In the meantime short-term I do not think that this should pose a problem. Long-term after he has recovered from his COVID it may be appropriate to have him see an EP physician for possible ablation of his atrial fibrillation (3) H/O coronary artery bypass surgery: PLAN: He is status post coronary bypass surgery. He is doing well at this time he does not appear to have had any angina. His last echocardiogram performed in January demonstrated preserved ejection fraction of 60%. We will not make any changes to his current regimen. (4) Essential (primary) hypertension: PLAN: His blood pressure is under good control at this particular time and I would not recommend that we make any other major changes. (5) HLD (hyperlipidemia): QUALIFIERS: Hyperlipidemia type: unspecified Qualified Code(s): E78.5 - Hyperlipidemia, unspecified PLAN: He does have a history of hyperlipidemia he will continue with aggressive risk factor modification. HPI Consult Data Date of Consult: 07/26/21 HPI Narrative HPI Narrative: RIGO DIAZ, is a 70 M who presents for evaluation of defibrillator discharge. This happened while he was watching a high school football game. He said he felt mild dizziness lightheadedness and a vague headache. He denied any palpitations or shortness of breath or chest pain. He does have a history of coronary bypass surgery and a recent diagnosis of atrial fibrillation. He has denied any neck arm or jaw discomfort suggest angina and has not had any recent cold. The other aspects of his medical history include known coronary artery disease with stenting in October 2017 to mid and distal RCA who presented to the hospital in March of 2019 with chest discomfort. He underwent a cardiac catheterization which demonstrated mild left main coronary artery stenosis, significant proximal 80% stenosis, left circumflex artery with first obtuse marginal branch with 70 to 80% stenosis in the right coronary artery with an 80% post stent stenosis and a distal 70% stenosis. He did have preserved left ventricle systolic function. He had presented with ventricular tachycardia which was polymorphic. It was decided to pursue coronary artery bypass surgery and he underwent coronary artery bypass surgery with a saphenous vein graft to left anterior descending artery, saphenous vein graft to obtuse marginal branch and saphenous vein graft to the posterior descending artery. The left internal mammary artery was not suitable enough for use as he had a nearly completely occluded left subclavian artery which was not amenable to intervention. He also because of his ventricular tachycardia underwent an EP study and underwent implantation of a dual-chamber defibrillator. His however was recently ill and tested positive with COVID-19. She has recovered. He was unvaccinated and says that he did not have any symptoms. In the emergency room he was noted to be in atrial fibrillation with a rapid ventricular response rate he was bolused with 25 mg of intravenous diltiazem and started on a diltiazem drip. A rapid COVID test demonstrated that he was positive. High-sensitivity troponin was noted to be normal and other laboratory tests were normal. He did have a CT scan of his head with no evidence of cerebrovascular accident. His potassium was reduced at 3.2. 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) Stenosis of left subclavian artery Sustained ventricular tachycardia (03/24/19) Home Medications brimonidine 1 drp LEFT EYE QHS 03/23/19 [History Last Taken 07/25/21 22:00] latanoprost 1 drp LEFT EYE QHS 03/23/19 [History Last Taken 07/25/21 22:00] acetaminophen 650 mg tablet,extended release 650 mg PO Q8H PRN PRN tab 04/27/19 [History Last Taken 07/25/21 08:00] multivitamin 1 tab PO DAILY 03/13/20 [History Last Taken 07/25/21 10:00] gabapentin 100 mg capsule 100 cap PO BID 03/27/20 [History Last Taken 07/25/21 22:00] ascorbic acid (vitamin C) 1,000 mg PO BID 01/31/21 [History Last Taken 07/25/21 22:00] apixaban [Eliquis] 5 mg PO BID 07/26/21 [History Last Taken 07/26/21 09:00] atorvastatin 40 mg PO QHS 07/26/21 [History Last Taken 07/25/21 22:00] diltiazem HCl [Cardizem CD] 240 mg PO DAILY 07/26/21 [History Last Taken 07/25/21 08:00] metoprolol tartrate 100 mg PO BID 07/26/21 [History Last Taken 07/25/21 22:00] Allergy/AdvReac Type Severity Reaction Status Date / Time No Known Allergies Allergy Verified 03/17/21 11:11 Family History Father Negative FH of ASCVD Hypertension Father COPD (chronic obstructive pulmonary disease) Mother Hypertension Surgical History H/O coronary artery bypass surgery (04/04/19) History of coronary artery stent placement (10/29/17) History of electrophysiologic study (04/2019) History of herniorrhaphy History of implantable cardiac defibrillator (ICD) (04/12/19) History of left heart catheterization (04/04/19) Hx of elbow surgery Social History household members: none Smoking Status: Former smoker quit date: 03/23/19 pack-years: 75 alcohol intake: former substance use type: does not use ROS Constitutional Constitutional: Denies fever(s) or weight loss Eyes Eyes: Reports systems reviewed and no addt'l complaints, except as documented ENT HEENT: Reports systems reviewed and no addt'l complaints, except as documented Cardiovascular Cardiovascular: Denies chest pain at rest, chest pain with activity, dyspnea at rest, dyspnea on exertion, edema, palpitations or paroxysmal nocturnal dyspnea Respiratory/Chest Respiratory/Chest: Denies dyspnea on exertion, productive cough, shortness of breath at rest or shortness of breath with exertion Gastrointestinal Gastrointestinal: Denies change in bowel habits, nausea, vomiting or weight changes Genitourinary Genitourinary: Denies difficulty urinating Musculoskeletal Musculoskeletal: Denies joint stiffness or muscle weakness Integumentary Integumentary: Denies lesions Neurologic Neurologic: Denies dizziness or syncope Psychiatric Psychiatric: Denies anxiety Endocrine Endocrinology: Denies excessive sweating or fatigue Hematologic/Lymphatic Hematologic/Lymphatic: Denies anemia Allergic/Immunologic Allergic/Immunologic: Denies seasonal rhinorrhea Risk Stratification Risk Stratification Applicable: No Objective Data Vital Signs: Vital Signs Temp Pulse Resp BP Pulse Ox 98.5 F 73 16 132/84 H 92 07/26/21 15:06 07/26/21 16:00 07/26/21 16:00 07/26/21 16:00 07/26/21 16:00 Oxygen Delivery Method Room Air Weight: 236 lb 5.369 oz Body Mass Index (BMI) 28.8 Intake & Output: Intake and Output for Last 24 Hours 07/24/21 07/25/21 07/26/21 23:59 23:59 23:59 Intake Total 253.5 / 253.5 Output Total 450 / 450 Balance -196.5 / -196.5 Lab / Micro Data Result Diagrams: 07/26/21 16:45 07/26/21 16:45 Labs: Laboratory Results - last 24 hr 07/26/21 14:24: Magnesium 1.7, Troponin I High Sens 590 H* 07/26/21 14:24: B-Natriuretic Peptide 207.6 H Cardiology Labs/Tests 07/26/21 14:24: Magnesium 1.7 07/26/21 14:24: B-Natriuretic Peptide 207.6 H Rhythm: EKG: ECHO: Stress Test: Cardiac Cath: PCI: CT Surgery: Holter monitor: EPS: PPM: CXR: Chest CT Scan:
[2021-07-26 16:58] LABS: Absolute Lymphocyte Count 0.78 X10^3/uL (0.83-4.51); Absolute Neutrophil Count 4.5 X10^3/uL (2.0-7.7); Basophil# 0.02 X10^3/uL; Basophil% 0.3 % (0-1); Eosinophil# 0.14 X10^3/uL; Eosinophils% 2.4 % (0-5); Hematocrit 45.6 % (40-54); Hemoglobin 15.7 g/dL (13.0-16.5); Lymphocyte # 0.78 X10^3/ul (0.83-4.51); Lymphocyte % 13.1 % (19-41); Mean Corp Hgb Conc 34.4 g/dL (32-36); Mean Corpuscular Hgb 33.3 pg (27.0-32.0); Mean Corpuscular Volume 96.6 fL (80-94); Mean Platelet Vol. 9.6 fl (6.2-12.0); Monocyte% 8.4 % (0-10); NRBC Flagged by Analyzer 0 % (0-5); Neutrophil # 4.48 X10^3/uL (2.7-7.7); Neutrophil % 75.3 % (47-70); Platelet Count 193 K/mm3 (150-450); RBC Distribution Width CV 14.3 % (11.6-14.6); RBC Distribution Width SD 51.2 fl (35.1-43.9); Red Blood Count 4.72 M/mm3 (4.6-6.2)
--- NOTE | 2021-07-26 17:47 | EKG12_ITS ---
Test Reason : RYTHMN CHANGE Blood Pressure : / mmHG Vent. Rate : 074 BPM Atrial Rate : 075 BPM P-R Int : 208 ms QRS Dur : 122 ms QT Int : 426 ms P-R-T Axes : 000 000 232 degrees QTc Int : 472 ms Atrial fibrillation with paced rhythm Otherwise normal ECG When compared with ECG of 31-JAN-2021 17:07, Current undetermined rhythm precludes rhythm comparison, needs review Nonspecific T wave abnormality now evident in Inferior leads Confirmed by TIBURCIO WILSON, RADHA ([id number]), editor index SHITAL FLOWERS ([id number]) on 07/28/2021 10:01:40 AM Referred By: ROBERT Confirmed By:RADHA DEY MD
[2021-07-26 18:09] LABS: ALB/GLOB Ratio 1.1 RATIO (0.9-2.4); AST(SGOT) 40 U/L (15-37); Alanine Aminotransfer ALT/SGPT 37 U/L (16-61); Albumin, Serum 3.7 g/dL (3.2-5.0); Alkaline Phosphatase 85 U/L (45-117); Anion Gap 10 (5-15); BUN 8 mg/dL (7-18); BUN/Creat Ratio 9.1 RATIO (10-20); Calcium,Total 8.6 mg/dL (8.5-10.1); Chloride 107 mmol/L (98-107); Creatinine, Serum 0.88 mg/dL (0.70-1.30); EST Glomerular Filtration Rate 90 mL/min (>60); Est Glom Filt Rate - Afr Amer 109 mL/min (>60); Estimated Creatinine Clearance 93.16 ml/min; Globulin 3.5 g/dL (2.2-4.2); Glucose 175 mg/dL (74-106); Magnesium 1.5 mg/dL (1.6-2.6); Potassium 3.1 mmol/L (3.5-5.1); Protein, Total 7.2 g/dL (6.4-8.2); Sodium Level 141 mmol/L (136-145); Troponin-I HS 526 pg/mL (3.0-78.0)
[2021-07-26 18:21] LABS: Phosphorus 2.7 mg/dL (2.5-4.9)
[2021-07-26] MEDS: 0.9% Saline Lock 10 ML Syringe IV (18:26)
[2021-07-26] MEDS: Gabapentin 100 MG Capsule PO (21:07)
[2021-07-26] MEDS: Ascorbic Acid 500 MG Tablet 1000 MG PO (21:07)
[2021-07-26] MEDS: APIXABAN 5 MG TABLET PO (21:07)
[2021-07-26] MEDS: Amiodarone 200 MG Tablet PO (21:07)
[2021-07-26] MEDS: MELATONIN 3 MG TABLET PO (21:07)
[2021-07-26] MEDS: Atorvastatin Calcium 40 MG Tablet PO (21:07)
[2021-07-26] MEDS: Famotidine 20 MG Tablet PO (21:07)
[2021-07-26] MEDS: BRIMONIDINE 0.15% 5 ML Bottle 1 DRP LEFT EYE (21:08)
[2021-07-26] MEDS: Latanoprost 0.005% 1 Bottle 1 DRP LEFT EYE (21:08)
[2021-07-26 21:36] LABS: Troponin-I HS 443 pg/mL (3.0-78.0)
[2021-07-27] VITALS (24 sets, daily range): BP systolic 81–149; BP diastolic 46–77; PULSE 70–81; RESP 12–24; TEMP 36.4–37.1; O2SAT 90–97
[2021-07-27] MEDS: Amiodarone 200 MG Tablet PO ×2 (05:24→13:41)
[2021-07-27 05:52] LABS: Absolute Lymphocyte Count 0.87 X10^3/uL (0.83-4.51); Absolute Neutrophil Count 3.2 X10^3/uL (2.0-7.7); Basophil# 0.02 X10^3/uL; Basophil% 0.4 % (0-1); Eosinophil# 0.17 X10^3/uL; Eosinophils% 3.6 % (0-5); Hematocrit 44.4 % (40-54); Lymphocyte # 0.87 X10^3/ul (0.83-4.51); Lymphocyte % 18.5 % (19-41); Mean Corp Hgb Conc 33.8 g/dL (32-36); Mean Corpuscular Volume 97.6 fL (80-94); Mean Platelet Vol. 9.9 fl (6.2-12.0); Monocyte# 0.44 X10^3/uL; Monocyte% 9.3 % (0-10); NRBC Flagged by Analyzer 0 % (0-5); Neutrophil # 3.18 X10^3/uL (2.7-7.7); Neutrophil % 67.6 % (47-70); Platelet Count 186 K/mm3 (150-450); RBC Distribution Width CV 14.5 % (11.6-14.6); RBC Distribution Width SD 51.9 fl (35.1-43.9); Red Blood Count 4.55 M/mm3 (4.6-6.2); White Blood Count 4.7 K/mm3 (4.4-11.0)
[2021-07-27 06:41] LABS: ALB/GLOB Ratio 1.1 RATIO (0.9-2.4); AST(SGOT) 34 U/L (15-37); Alanine Aminotransfer ALT/SGPT 31 U/L (16-61); Albumin, Serum 3.4 g/dL (3.2-5.0); Alkaline Phosphatase 80 U/L (45-117); Anion Gap 6 (5-15); BUN 13 mg/dL (7-18); BUN/Creat Ratio 11.9 RATIO (10-20); Chloride 108 mmol/L (98-107); Cholesterol 108 mg/dL (200); Creatinine, Serum 1.09 mg/dL (0.70-1.30); EST Glomerular Filtration Rate 71 mL/min (>60); Est Glom Filt Rate - Afr Amer 85 mL/min (>60); Estimated Creatinine Clearance 75.21 ml/min; Globulin 3.2 g/dL (2.2-4.2); Glucose 138 mg/dL (74-106); High Density Lipoprotein 35 mg/dL; Potassium 3.6 mmol/L (3.5-5.1); Protein, Total 6.6 g/dL (6.4-8.2); Sodium Level 141 mmol/L (136-145); Thyroid Stim Hormone (TSH) 2.13 uIU/mL (0.358-3.74); Triglycerides 125 mg/dL; Very Low Density Lipoprotein 25 mg/dL (5-40)
[2021-07-27] MEDS: Metoprolol Tartrate 100 MG Tablet PO (08:14)
[2021-07-27] MEDS: Multivitamins,Therapeutic Tablet 1 TABLET PO (08:14)
[2021-07-27] MEDS: Polyethylene Glycol 3350 17 GM PACKET PO (08:15)
[2021-07-27] MEDS: Ascorbic Acid 500 MG Tablet 1000 MG PO (08:15)
[2021-07-27] MEDS: Famotidine 20 MG Tablet PO (08:15)
[2021-07-27] MEDS: Gabapentin 100 MG Capsule PO (08:15)
[2021-07-27] MEDS: APIXABAN 5 MG TABLET PO (08:16)
[2021-07-27] MEDS: 0.9% Saline Lock 10 ML Syringe IV (08:18)
--- NOTE | 2021-07-27 08:30 | PN.CARD_ITS ---
Subjective Subjective Patient's rhythm evaluated Objective Data Vital Signs: Vital Signs Temp Pulse Resp BP Pulse Ox 98.8 F 75 18 111/71 93 07/27/21 05:00 07/27/21 08:14 07/27/21 08:00 07/27/21 08:14 07/27/21 08:25 Oxygen Delivery Method Room Air Weight: 236 lb 5.369 oz Body Mass Index (BMI) 28.8 Intake & Output: Intake and Output for Last 24 Hours 07/25/21 07/26/21 07/27/21 23:59 23:59 23:59 Intake Total 668.0 / 676.25 110.75 / 110.75 Output Total 1050 / 1050 0 / 0 Balance -382.0 / -373.75 110.75 / 110.75 Lab / Micro Data Result Diagrams: 07/27/21 05:16 07/27/21 05:16 Labs: Laboratory Results - last 24 hr 07/26/21 14:24: Magnesium 1.7, Troponin I High Sens 590 H* 07/26/21 14:24: B-Natriuretic Peptide 207.6 H 07/26/21 16:24: Phosphorus 2.7 07/26/21 16:45: Sodium 141, Potassium 3.1 L, Chloride 107, Carbon Dioxide 24.0, Anion Gap 10, BUN 8, Creatinine 0.88, Estim Creat Clear Calc 93.16, Est GFR (MDRD) Af Amer 109, Est GFR (MDRD) Non-Af 90, BUN/Creatinine Ratio 9.1 L, Glucose 175 H, Calcium 8.6, Magnesium 1.5 L, Total Bilirubin 0.90, AST 40 H, ALT 37, Alkaline Phosphatase 85, Troponin I High Sens 526 H*, Total Protein 7.2, Albumin 3.7, Globulin 3.5, Albumin/Globulin Ratio 1.1 07/26/21 16:45: WBC 6.0, RBC 4.72, Hgb 15.7, Hct 45.6, MCV 96.6 H, MCH 33.3 H, MCHC 34.4, RDW Std Deviation 51.2 H, RDW Coeff of Priscila 14.3, Plt Count 193, MPV 9.6, Immature Gran % (Auto) 0.500, Neut % (Auto) 75.3 H, Lymph % (Auto) 13.1 L, [place] % (Auto) 8.4, Eos % (Auto) 2.4, Baso % (Auto) 0.3, Absolute Neuts (auto) 4.5, Absolute Lymphs (auto) 0.78 L, Nucleated RBC % 0 07/26/21 20:55: Troponin I High Sens 443 H* 07/27/21 05:16: WBC 4.7, RBC 4.55 L, Hgb 15.0, Hct 44.4, MCV 97.6 H, MCH 33.0 H, MCHC 33.8, RDW Std Deviation 51.9 H, RDW Coeff of Priscila 14.5, Plt Count 186, MPV 9.9, Immature Gran % (Auto) 0.600, Neut % (Auto) 67.6, Lymph % (Auto) 18.5 L, [place] % (Auto) 9.3, Eos % (Auto) 3.6, Baso % (Auto) 0.4, Absolute Neuts (auto) 3.2, Absolute Lymphs (auto) 0.87, Nucleated RBC % 0 07/27/21 05:16: Sodium 141, Potassium 3.6, Chloride 108 H, Carbon Dioxide 27.0, Anion Gap 6, BUN 13, Creatinine 1.09, Estim Creat Clear Calc 75.21, Est GFR (MDRD) Af Amer 85, Est GFR (MDRD) Non-Af 71, BUN/Creatinine Ratio 11.9, Glucose 138 H, Calcium 9.0, Total Bilirubin 0.90, AST 34, ALT 31, Alkaline Phosphatase 80, Total Protein 6.6, Albumin 3.4, Globulin 3.2, Albumin/Globulin Ratio 1.1, Triglycerides 125, Cholesterol 108, LDL Cholesterol 48, VLDL Cholesterol 25, HDL Cholesterol 35 L, TSH 2.13 Cardiology Labs/Tests 07/26/21 14:24: Magnesium 1.7 07/26/21 14:24: B-Natriuretic Peptide 207.6 H 07/26/21 16:24: Phosphorus 2.7 07/26/21 16:45: Sodium 141, Potassium 3.1 L, Chloride 107, Carbon Dioxide 24.0, Anion Gap 10, BUN 8, Creatinine 0.88, Est GFR (MDRD) Af Amer 109, Est GFR (MDRD) Non-Af 90, BUN/Creatinine Ratio 9.1 L, Glucose 175 H, Calcium 8.6, Magnesium 1.5 L, Total Bilirubin 0.90 07/26/21 16:45: WBC 6.0, RBC 4.72, Hgb 15.7, Hct 45.6, MCV 96.6 H, MCH 33.3 H, MCHC 34.4, Plt Count 193, MPV 9.6, Immature Gran % (Auto) 0.500, Neut % (Auto) 75.3 H, Lymph % (Auto) 13.1 L, [place] % (Auto) 8.4, Eos % (Auto) 2.4, Baso % (Auto) 0.3, Absolute Neuts (auto) 4.5, Nucleated RBC % 0 07/27/21 05:16: WBC 4.7, RBC 4.55 L, Hgb 15.0, Hct 44.4, MCV 97.6 H, MCH 33.0 H, MCHC 33.8, Plt Count 186, MPV 9.9, Immature Gran % (Auto) 0.600, Neut % (Auto) 67.6, Lymph % (Auto) 18.5 L, [place] % (Auto) 9.3, Eos % (Auto) 3.6, Baso % (Auto) 0.4, Absolute Neuts (auto) 3.2, Nucleated RBC % 0 07/27/21 05:16: Sodium 141, Potassium 3.6, Chloride 108 H, Carbon Dioxide 27.0, Anion Gap 6, BUN 13, Creatinine 1.09, Est GFR (MDRD) Af Amer 85, Est GFR (MDRD) Non-Af 71, BUN/Creatinine Ratio 11.9, Glucose 138 H, Calcium 9.0, Total Bilirubin 0.90, Triglycerides 125, Cholesterol 108, LDL Cholesterol 48, VLDL Cholesterol 25, HDL Cholesterol 35 L Rhythm: EKG: ECHO: Stress Test: Cardiac Cath: PCI: CT Surgery: Holter monitor: EPS: PPM: CXR: Chest CT Scan: Assessment & Plan Assessment/Plan (1) Paroxysmal atrial fibrillation with RVR: PLAN: He appears to have atrial fibrillation with rapid ventricular response rate which is paroxysmal at this time. He is anticoagulated and his ventricular response rate is slower now on the beta-svitlana and the amiodarone. He recently had an echocardiogram which demonstrated preserved ejection fraction. He will continue with his anticoagulation. Depending on further findings further recommendations will be made. At this particular time however it appears that his ventricular response rate is fairly controlled. (2) History of implantable cardiac defibrillator (ICD): PLAN: He does have an ICD in place and it appears that his ICD discharge on the basis of the atrial flutter with a rapid ventricular response rate. This appears to have improved The plan was to keep him anticoagulated and put him back on intravenous amiodarone. He had previously had some issues with his thyroid and we may need to have him see the top flavor attendant for the above. In the meantime short-term I do not think that this should pose a problem. Long-term after he has recovered from his COVID it may be appropriate to have him see an EP physician for possibl e ablation of his atrial fibrillation (3) H/O coronary artery bypass surgery: PLAN: He is status post coronary bypass surgery. He is doing well at this time he does not appear to have had any angina. His last echocardiogram performed in January demonstrated preserved ejection fraction of 60%. We will not make any changes to his current regimen. (4) Essential (primary) hypertension: PLAN: His blood pressure is under good control at this particular time and I would not recommend that we make any other major changes. (5) HLD (hyperlipidemia): QUALIFIERS: Hyperlipidemia type: unspecified Qualified Code(s): E78.5 - Hyperlipidemia, unspecified PLAN: He does have a history of hyperlipidemia he will continue with aggressive risk factor modification.
--- NOTE | 2021-07-27 11:52 | CASEMGMT ---
BIBI SIMMONS assessment: Initial transition planning/care coordination assessment. BIBI SIMMONS introduced self and role at [facility], pt voices understanding and consents to assessment. Pt is on room air in no distress and speaks in full sentences. Pt is A/Ox4 and answers all questions appropriately. Pt is not vaccinated but his is and she recently had COVID. Pt is asymptomatic and only went to [facility] d/t defib firing and pt was found to be COVID + and in Afib RVR. Pt then direct admit to [facility] PCU. Pt states no concerns getting resources at discharge. Care providers, pharmacy, and demographics verified/updated. Presentation: Pt direct admit from [facility] for AFib RVR and COVID, pt's ICD fired 3 times Admitting dx: COVID/Afib RVR PCP: Shani Specialists: Melissa cardio; ROMINA Reyes Preferred Pharmacy: [facility]-pt states would prefer to use [facility] pharmacy but per Doron, pharmacist, they no longer take for life Insurance: MCR A/B, For life Prescription Benefit: for life Living Will/HPOA: Pt is unsure if they have LW/HPOA. LNOK: Katherine Stacy, ; Jaime Stacy IV, son Living Arrangements: Pt lives with in 1 story home and states no concerns at home. Pt is independent with ADL's. Transportation: Pt drives self and states no transportation concerns. DME/HHC: Pt states no current DME or need for any further DME. Pt states has has HHC in the past s/p CABG but has not been to SNF. Pt states no concerns with going home at time of discharge. Pt is retired. Pt does not smoke cigarettes or drink ETOH. Pt voices no further concerns/needs. CM to follow for any further discharge planning/needs. Advised pt to ask for CM if any further questions/concerns/needs arise, voices understanding. Pt Goal: Home Plan: [place] BIBI SIMMONS
--- NOTE | 2021-07-27 12:14 | PCM.DC ---
Discharge Instructions Diet Discharge Diet: Low fat / Low cholesterol Activity Discharge Activity: Return to Normal Activity Dressing / Incision Call your doctor if you observe: Fever of 101 or Higher, Shortness of breath, Dizziness, Fainting spells, Swelling in the ankles, Chest pain and Increased palpitations (irregular heartbeat) Follow Up Care Test Results: Test results from this visit will be discussed in further detail at your follow-up appointment, if applicable. Discharge Plan Admission Admit Date/Time: 07/26/21 13:58 Attending Provider: Tawanda Hall Primary Care Provider: Carmen Mcleod Consulting Providers: Fish Torres Discharge Orders/Prescriptions Prescriptions: New amiodarone 200 mg Tablet 200 mg PO TID 60 Days Qty: 180 RF: 0 Continued acetaminophen [Arthritis Pain Relief (acetam)] 650 mg tablet extended release 650 mg PO Q8H PRN PRN (Reason: Pain Or Fever) RF: 0 multivitamin Tablet 1 tab PO DAILY RF: 0 gabapentin 100 mg capsule 100 cap PO BID RF: 0 latanoprost 0.005 % drops 1 drp LEFT EYE QHS RF: 0 brimonidine 0.1 % drops 1 drp LEFT EYE QHS RF: 0 ascorbic acid (vitamin C) 500 mg Capsule 1,000 mg PO BID RF: 0 atorvastatin 40 mg tablet 40 mg PO QHS RF: 0 metoprolol tartrate 100 mg tablet 100 mg PO BID RF: 0 Eliquis 5 mg tablet 5 mg PO BID RF: 0 Discontinued diltiazem HCl [Cardizem CD] 240 mg Capsule,Extended Release 24hr 240 mg PO DAILY RF: 0 Referrals / Follow Up: Fish Torres MD [STAFF PHYSICIAN] - See Referral Note (As previously scheduled, call the office to see if Dr. Torres would like to see you sooner.) Carmen Mcleod MD [Primary Care Provider] - Within 1 Week Disposition Disposition (needs filled in before D/C Order can be placed): Home, Self Care
--- NOTE | 2021-07-27 12:22 | DS.PCM_ITS ---
Providers Date of Admission: 07/26/21 Primary Care Physician: Dr. Carmen Mcleod MD Consultations 07/26/21 15:29 Consult: Cardiology Routine Consulting Provider: Fish Torres Reason for Consult: Afib with RVR, ICD firing EMERGENT Consult: No MD Notified: Yes Date Notified: 07/26/21 Time Notified: 15:29 Method of Notification: Text Reason For Visit: COVID/AFIB RVR Diagnosis Discharge Diagnosis (1) Paroxysmal atrial fibrillation with RVR: Status: Acute Code(s): I48.0 - Paroxysmal atrial fibrillation (2) History of implantable cardiac defibrillator (ICD): Status: Chronic Code(s): Z95.810 - Presence of automatic (implantable) cardiac defibrillator (3) H/O coronary artery bypass surgery: Status: Resolved Code(s): Z95.1 - Presence of aortocoronary bypass graft (4) Essential (primary) hypertension: Status: Chronic Code(s): I10 - Essential (primary) hypertension (5) HLD (hyperlipidemia): Status: Chronic Code(s): E78.5 - Hyperlipidemia, unspecified Qualifiers: Hyperlipidemia type: unspecified Qualified Code(s): E78.5 - Hyperlipidemia, unspecified Medications at Discharge Home Medications brimonidine 1 drp LEFT EYE QHS 03/23/19 latanoprost 1 drp LEFT EYE QHS 03/23/19 acetaminophen 650 mg tablet,extended release 650 mg PO Q8H PRN PRN tab 04/27/19 multivitamin 1 tab PO DAILY 03/13/20 gabapentin 100 mg capsule 100 cap PO BID 03/27/20 ascorbic acid (vitamin C) 1,000 mg PO BID 01/31/21 Eliquis 5 mg PO BID 07/26/21 atorvastatin 40 mg PO QHS 07/26/21 metoprolol tartrate 100 mg PO BID 07/26/21 amiodarone 200 mg PO TID 60 Days #180 tab 07/27/21 Hospital Course Operations None Procedures None Summary of Care Provided Minutes Spent on Discharge: 42 Hospital Course: Per HPI: RIGO DIAZ, is a 70 M with multiple comorbidities including coronary artery disease status post stents and CABG three-vessel and recent diagnosis of A. fib about 4 -5 months ago is being directly admitted to PCU from [facility]. Patient went to the ER for ICD firing x3 while he was watching match for continuous 8 hours at [employer] before this happened. He felt mild dizziness, lightheadedness and vague posterior headache at that tournament but denied palpitation, shortness of breath, passing out, chest pain/tightness or heaviness. He had AICD inserted in [facility]. Incidentally, patient was found COVID rapid antigen positive in ER but denies new onset cough, fever, chills, diaphoresis, loss of taste/smell, nausea, vomiting or diarrhea. He is not COVID vaccinated. He had flu shot every year and last time 2020. His was recently ill with COVID-19 and tested positive but she is vaccinated. In ER, patient was found A. fib with RVR and was given Cardizem 25 mg IV bolus, normal saline bolus and then started on Cardizem drip at 15 mg/h. Patient said after the Cardizem drip his heart rate was around 80s but sometimes to spike to 104/min. High-sensitivity troponin 18.6, normal. Serum potassium 3.2 with normal sodium. BUN/creatinine 15/1.25. CT head no evidence of acute cortical CVA, mass-effect or ICH or skull fracture. EMS EKG shows A. fib with RVR at 146 bpm. Twelve-lead EKG from ER on 25 July 2021 shows A. fib with RVR with occasional ventricular paced complexes. Incomplete LBBB probably from ICD. Nonspecific ST-T abnormality inferior lateral leads primarily from previous ND. Labs from dopamine reviewed. Hospital Course: 1. A. fib with RVR with an AICD shock/chronic diastolic CHF/CAD status post CABG and stents/HTN?70-year-old male who was at a basketball game on Monday was watching baseball games and talking with people when he felt his defibrillator shocked him and he felt a total of 3 shocks and therefore presented to the closest hospital. At that time he was found to be in A. fib with RVR and started on a Cardizem drip. Because of his cardiac history he was transferred to this institution. He was also found to test positive for COVID at that time, he is unvaccinated but his has COVID at home. He denies any symptoms, no shortness of breath or coughing. He was continued on his anticoagulation as well as the Cardizem drip. He did convert and his heart rate went down to normal. Cardiology was consulted and recommended reinitiation of his amiodarone. He was started on amiodarone 3 times daily, and plan will be to continue the amiodarone 3 times a day for 1 week and then go down to twice a day until he follows up with his attorney at law. We will also discontinue his Cardizem at this time since we are adding amiodarone and continue with his p.o. Lopressor. He feels much better today and would like to go home. I did discuss with him the risk and benefits of discharge and he expressed understanding. I did discuss with him that if he does notice his heart rate climb again and he noticed that his defibrillator shocked him again that he is to present back to the hospital for further evaluation. I discussed the discharge plan with cardiology and they are in agreement. Physical Exam Const alert, oriented x3 and no apparent distress General Appearance: cooperative HEENT normocephalic and moist oral mucous membranes Eyes PERRL, EOMs intact bilaterally and conjunctivae normal Neck supple and no JVD Resp normal respiratory effort, no retractions, no use of accessory muscles and clear to auscultation bilaterally Auscultation: Negative for crackles, rales, rhonchi or wheezes Cardio regular rate, S1 normal heart sound, S2 normal heart sound and no murmurs Rhythm: abnormal rhythm GI soft to palpation, non-tender and non-distended; Negative for hepatosplenomegaly Extremity no clubbing, cyanosis or edema Skin no rashes or lesions noted Neuro no focal motor deficits and no sensory deficits noted Psych affect normal Appearance: appropriate Weight / BMI Weight Weight: 236 lb 5.369 oz Body Mass Index (BMI) 28.8 ABG / Lab / Microbiology Data Result Diagrams: 07/27/21 05:16 07/27/21 05:16 Laboratory: Laboratory Results - last 24 hr 07/26/21 14:24: Magnesium 1.7, Troponin I High Sens 590 H* 07/26/21 14:24: B-Natriuretic Peptide 207.6 H 07/26/21 16:24: Phosphorus 2.7 07/26/21 16:45: Sodium 141, Potassium 3.1 L, Chloride 107, Carbon Dioxide 24.0, Anion Gap 10, BUN 8, Creatinine 0.88, Estim Creat Clear Calc 93.16, Est GFR (MDRD) Af Amer 109, Est GFR (MDRD) Non-Af 90, BUN/Creatinine Ratio 9.1 L, Glucose 175 H, Calcium 8.6, Magnesium 1.5 L, Total Bilirubin 0.90, AST 40 H, ALT 37, Alkaline Phosphatase 85, Troponin I High Sens 526 H*, Total Protein 7.2, Albumin 3.7, Globulin 3.5, Albumin/Globulin Ratio 1.1 07/26/21 16:45: WBC 6.0, RBC 4.72, Hgb 15.7, Hct 45.6, MCV 96.6 H, MCH 33.3 H, MCHC 34.4, RDW Std Deviation 51.2 H, RDW Coeff of Priscila 14.3, Plt Count 193, MPV 9.6, Immature Gran % (Auto) 0.500, Neut % (Auto) 75.3 H, Lymph % (Auto) 13.1 L, [place] % (Auto) 8.4, Eos % (Auto) 2.4, Baso % (Auto) 0.3, Absolute Neuts (auto) 4.5, Absolute Lymphs (auto) 0.78 L, Nucleated RBC % 0 07/26/21 20:55: Troponin I High Sens 443 H* 07/27/21 05:16: WBC 4.7, RBC 4.55 L, Hgb 15.0, Hct 44.4, MCV 97.6 H, MCH 33.0 H, MCHC 33.8, RDW Std Deviation 51.9 H, RDW Coeff of Priscila 14.5, Plt Count 186, MPV 9.9, Immature Gran % (Auto) 0.600, Neut % (Auto) 67.6, Lymph % (Auto) 18.5 L, [place] % (Auto) 9.3, Eos % (Auto) 3.6, Baso % (Auto) 0.4, Absolute Neuts (auto) 3.2, Absolute Lymphs (auto) 0.87, Nucleated RBC % 0 07/27/21 05:16: Sodium 141, Potassium 3.6, Chloride 108 H, Carbon Dioxide 27.0, Anion Gap 6, BUN 13, Creatinine 1.09, Estim Creat Clear Calc 75.21, Est GFR (MDRD) Af Amer 85, Est GFR (MDRD) Non-Af 71, BUN/Creatinine Ratio 11.9, Glucose 138 H, Calcium 9.0, Total Bilirubin 0.90, AST 34, ALT 31, Alkaline Phosphatase 80, Total Protein 6.6, Albumin 3.4, Globulin 3.2, Albumin/Globulin Ratio 1.1, Triglycerides 125, Cholesterol 108, LDL Cholesterol 48, VLDL Cholesterol 25, HDL Cholesterol 35 L, TSH 2.13 D/C Instructions Discharge Diet: Low fat / Low cholesterol Call your doctor if you observe: Fever of 101 or Higher, Shortness of breath, Dizziness, Fainting spells, Swelling in the ankles, Chest pain and Increased palpitations (irregular heartbeat) Meaningful Use Info Meaningful Use Diagnoses (Choose all that apply): None applicable Discharge Plan Admission Admit Date/Time: 07/26/21 13:58 Attending Provider: Tawanda Hall Primary Care Provider: Carmen Mcleod Consulting Providers: Fish Torres Discharge Orders/Prescriptions Prescriptions: New amiodarone 200 mg Tablet 200 mg PO TID 60 Days Qty: 180 RF: 0 Continued acetaminophen [Arthritis Pain Relief (acetam)] 650 mg tablet extended release 650 mg PO Q8H PRN PRN (Reason: Pain Or Fever) RF: 0 multivitamin Tablet 1 tab PO DAILY RF: 0 gabapentin 100 mg capsule 100 cap PO BID RF: 0 latanoprost 0.005 % drops 1 drp LEFT EYE QHS RF: 0 brimonidine 0.1 % drops 1 drp LEFT EYE QHS RF: 0 ascorbic acid (vitamin C) 500 mg Capsule 1,000 mg PO BID RF: 0 atorvastatin 40 mg tablet 40 mg PO QHS RF: 0 metoprolol tartrate 100 mg tablet 100 mg PO BID RF: 0 Eliquis 5 mg tablet 5 mg PO BID RF: 0 Discontinued diltiazem HCl [Cardizem CD] 240 mg Capsule,Extended Release 24hr 240 mg PO DAILY RF: 0 Referrals / Follow Up: Fish Torres MD [STAFF PHYSICIAN] - See Referral Note (As previously scheduled, call the office to see if Dr. Torres would like to see you sooner.) Carmen Mcleod MD [Primary Care Provider] - Within 1 Week Disposition Disposition (needs filled in before D/C Order can be placed): Home, Self Care Charges/Coding Visit Charges Inpatient E&M: 75992 Disch Hosp
--- NOTE | 2021-07-27 12:57 | CASEMGMT ---
Pt does not qualify for home oxygen and states no further concerns with going home. Pt ready for d/c. Christopher MTZ CM
== END 2021-07-27 14:04 | disposition home or self-care (01) | DRG 308 ==
PROVIDERS: Internal Medicine Cardiovascular Disease; Admitting Provider Internal Medicine; PCP Family Medicine; Visit Provider Family Medicine
DX: I48.0 Paroxysmal atrial fibrillation (principal); U07.1 COVID-19; T82.198A Other mechanical complication of other cardiac electronic device, initial encounter; I50.32 Chronic diastolic (congestive) heart failure; I11.0 Hypertensive heart disease with heart failure; I48.92 Unspecified atrial flutter; E78.5 Hyperlipidemia, unspecified; I25.10 Atherosclerotic heart disease of native coronary artery without angina pectoris; I25.2 Old myocardial infarction; K21.9 Gastro-esophageal reflux disease without esophagitis; Z95.1 Presence of aortocoronary bypass graft; Z66 Do not resuscitate; Z79.01 Long term (current) use of anticoagulants; Z95.810 Presence of automatic (implantable) cardiac defibrillator; Z87.891 Personal history of nicotine dependence; Z95.5 Presence of coronary angioplasty implant and graft; Z79.899 Other long term (current) drug therapy
CPT/HCPCS: 36415; 80053; 80061; 80299; 83735; 83880; 84100; 84443; 84484; 85025; 93005; 99406; A4216

== ENCOUNTER 2021-10-26 08:00 | Outpatient (RCR) | payer SELFPAY ==
[2019-08-07 13:34] VITALS: BMI 27.5
== END 2021-11-06 23:59 ==
LOC: CR 08:00
PROVIDERS: PCP Family Medicine; Visit Provider Internal Medicine Cardiovascular Disease
DX: Z00.00 Encounter for general adult medical examination without abnormal findings (principal)

== ENCOUNTER 2021-11-23 08:00 | Outpatient (RCR) | payer SELFPAY ==
[2019-08-07 13:34] VITALS: BMI 27.5
== END 2021-12-07 23:59 ==
LOC: CR 08:00
PROVIDERS: PCP Family Medicine; Referring Provider Internal Medicine Cardiovascular Disease; Visit Provider Internal Medicine Cardiovascular Disease
DX: Z00.00 Encounter for general adult medical examination without abnormal findings (principal)

== ENCOUNTER 2021-12-09 06:26 | Outpatient (RCR) | payer SELFPAY ==
[2019-08-07 13:34] VITALS: BMI 27.5
== END 2022-01-06 23:59 ==
LOC: CR 06:26
PROVIDERS: PCP Family Medicine; Referring Provider Internal Medicine Cardiovascular Disease; Visit Provider Internal Medicine Cardiovascular Disease
DX: Z00.00 Encounter for general adult medical examination without abnormal findings (principal)

== ENCOUNTER → 2022-04-05 | Outpatient (CLI) | payer MEDICARE, OTHER, SELFPAY ==
[2019-08-07 13:34] VITALS: BMI 27.5
[2022-04-05 10:13] LABS: Absolute Neutrophil Count 5.6 X10^3/uL (2.0-7.7); Basophil# 0.06 X10^3/uL; Basophil% 0.8 % (0-1); Eosinophil# 0.43 X10^3/uL; Eosinophils% 5.5 % (0-5); Hematocrit 45.6 % (40-54); Hemoglobin 15.6 g/dL (13.0-16.5); Lymphocyte % 12.9 % (19-41); Mean Corp Hgb Conc 34.2 g/dL (32-36); Mean Corpuscular Hgb 35.5 pg (27.0-32.0); Mean Corpuscular Volume 103.9 fL (80-94); Monocyte# 0.61 X10^3/uL; Monocyte% 7.9 % (0-10); NRBC Flagged by Analyzer 0 % (0-5); Neutrophil # 5.61 X10^3/uL (2.7-7.7); Neutrophil % 72.3 % (47-70); Platelet Count 230 K/mm3 (150-450); RBC Distribution Width CV 13.6 % (11.6-14.6); RBC Distribution Width SD 52.9 fl (35.1-43.9); Red Blood Count 4.39 M/mm3 (4.6-6.2); White Blood Count 7.8 K/mm3 (4.4-11.0)
[2022-04-05 10:37] LABS: ALB/GLOB Ratio 1.1 RATIO (0.9-2.4); AST(SGOT) 20 U/L (15-37); Alanine Aminotransfer ALT/SGPT 33 U/L (16-61); Albumin, Serum 3.7 g/dL (3.2-5.0); Alkaline Phosphatase 73 U/L (45-117); Anion Gap 5 (5-15); BUN 18 mg/dL (7-18); BUN/Creat Ratio 16.2 RATIO (10-20); Calcium,Total 9.4 mg/dL (8.5-10.1); Chloride 108 mmol/L (98-107); Cholesterol 132 mg/dL (200); Creatinine, Serum 1.11 mg/dL (0.70-1.30); EST Glomerular Filtration Rate 69 mL/min (>60); Est Glom Filt Rate - Afr Amer 83 mL/min (>60); Free T3 2.6 pg/mL (2.18-3.98); Globulin 3.5 g/dL (2.2-4.2); Glucose 147 mg/dL (74-106); High Density Lipoprotein 48 mg/dL; Potassium 4.4 mmol/L (3.5-5.1); Protein, Total 7.2 g/dL (6.4-8.2); Sodium Level 142 mmol/L (136-145); Thyroid Stim Hormone (TSH) 4.25 uIU/mL (0.358-3.74); Triglycerides 121 mg/dL; Very Low Density Lipoprotein 24 mg/dL (5-40)
[2022-04-05 10:38] LABS: Hemoglobin A1c 6.2 % (3.8-5.6)
== END | disposition home or self-care (01) ==
LOC: MTLAB 08:18
PROVIDERS: PCP Family Medicine; Referring Provider Family Medicine; Visit Provider Family Medicine
DX: E03.9 Hypothyroidism, unspecified (principal); I25.10 Atherosclerotic heart disease of native coronary artery without angina pectoris; R73.03 Prediabetes
CPT/HCPCS: 80053; 80061; 83036; 84439; 84443; 84481; 85025

== ENCOUNTER → 2022-04-12 | Outpatient (CLI) | payer MEDICARE, OTHER, SELFPAY ==
[2019-08-07 13:34] VITALS: BMI 27.5
--- NOTE | 2022-04-12 15:00 | RAD_ITS ---
EXAM: XR CHEST, 2 VIEWS CLINICAL INDICATION: Amiodarone TECHNIQUE: Frontal and lateral views of the chest. This report was created using [employer] report generation technology. COMPARISON: 01/31/2021 FINDINGS: LUNGS AND PLEURAL SPACES: Unremarkable. No consolidation or edema. No pneumothorax. No effusion. HEART: Unremarkable. Cardiac silhouette not enlarged. MEDIASTINUM: Central airways and mediastinal contour are unremarkable. BONES/JOINTS: Unremarkable. SOFT TISSUES: Unremarkable. TUBES, LINES AND DEVICES: Left-sided pacemaker in good position. RAD/Chest PA and Lateral IMPRESSION: No acute findings in the chest. Electronically Signed: Harris Lux MD at 16:20 EDT ,
== END | disposition home or self-care (01) ==
LOC: RAD 14:57
PROVIDERS: PCP Family Medicine; Referring Provider Nurse Practitioner Gerontology; Visit Provider Nurse Practitioner Gerontology
DX: Z79.899 Other long term (current) drug therapy (principal)
CPT/HCPCS: 71046

== ENCOUNTER 2022-07-22 21:42 | Emergency (ER) | payer MEDICARE, OTHER, SELFPAY ==
[2019-08-07 13:34] VITALS: BMI 27.5
[2022-07-22 21:43] VITALS: BP 164/104; PULSE 63; RESP 16; TEMP 36.2; O2SAT 96; BMI 28.0
[2022-07-22] MEDS: Gelatin Sponge Absorbable 50cm (1) 1 EACH TOPICAL (22:12)
--- NOTE | 2022-07-22 22:24 | EDS_ITS ---
HPI History of Present Illness Chief Complaint: Dental Narrative Narrative: Patient is a 71-year-old male with past medical history of paroxysmal atrial fibrillation currently on as well as hypertension and congestive heart failure. He went to the dentist and had a tooth extracted today. He states that he was advised that he does not need to stop his Eliquis for this. He reports that since the tooth has been extracted he has been having persistent bleeding from the area where the surgery took place. He states this is occurred for multiple hours and he is concerned to go to bed because of the persistent bleeding and therefore comes in for evaluation. [facility] Medical History (Updated 07/22/22 @ 22:[address] 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) Paroxysmal atrial fibrillation with RVR Stenosis of left subclavian artery Sustained ventricular tachycardia (03/24/19) Home Medications brimonidine 0.1 % eye drops 1 drp LEFT EYE QHS prevent glaucoma 03/23/19 [History Last Taken 07/25/21 22:00] latanoprost 0.005 % eye drops 1 drp LEFT EYE QHS prevent glaucoma 03/23/19 [History Last Taken 07/25/21 22:00] acetaminophen 650 mg tablet,extended release (Arthritis Pain Relief (acetaminophen) ER) 650 mg PO Q8H PRN PRN Pain Or Fever 04/27/19 [History Last Taken 07/25/21 08:00] multivitamin 1 tab PO DAILY vitamin 03/13/20 [History Last Taken 07/25/21 10:00] ascorbic acid (vitamin C) 500 mg capsule 1,000 mg PO BID vitamin 01/31/21 [History Last Taken 07/25/21 22:00] atorvastatin 40 mg tablet 40 mg PO .QODAY cholesterol 10/07/21 [History Last Taken Unknown] diltiazem HCl 120 mg capsule,24 hr,extended release 120 mg PO BID #180 caps 11/12/21 [Rx Last Taken Unknown] apixaban 5 mg tablet (Eliquis) 5 mg PO BID blood thinner #180 tabs 02/08/22 [Rx Last Taken Unknown] amoxicillin 875 mg-potassium clavulanate 125 mg tablet 1 tab PO BID #20 tabs 05/09/22 [Rx Last Taken Unknown] benzonatate 200 mg capsule 200 mg PO TID PRN cough #20 caps 05/09/22 [Rx Last Taken Unknown] metoprolol tartrate 100 mg tablet See Rx Instructions .Route .COMPLEX #180 TABLETS 05/30/22 [Rx Last Taken Unknown] amiodarone 200 mg tablet 200 mg PO DAILY 90 days #90 tabs 07/20/22 [Rx Last Taken Unknown] Allergy/AdvReac Type Severity Reaction Status Date / Time No Known Allergies Allergy Verified 07/22/22 21:47 Family History (Reviewed 04/12/22 @ 14:33 by Edilma Bond [employer], [employer]) Father Negative FH of ASCVD Hypertension Father COPD (chronic obstructive pulmonary disease) Mother Hypertension Surgical History H/O coronary artery bypass surgery (04/04/19) History of coronary artery stent placement (10/29/17) History of electrophysiologic study (04/2019) History of herniorrhaphy History of implantable cardiac defibrillator (ICD) (04/12/19) History of left heart catheterization (04/04/19) Hx of elbow surgery Presence of implantable cardioverter-defibrillator (ICD) Social History (Reviewed 04/12/22 @ 14:33 by Edilma Bond [employer], [employer]) household members: none Smoking Status: Former smoker quit date: 03/23/19 pack-years: 75 alcohol intake: former substance use type: does not use caffeine: Yes Type: coffee Number of servings: 2 and tea Number of servings: 1 ROS ROS ED Constitutional Constitutional ED: Denies chills or fever(s) ENT ENT ED: Reports other Details: Positive dental/mouth bleeding ; Denies sore throat Cardiovascular Cardiovascular: Denies chest pain Respiratory/Chest Respiratory/Chest: Denies cough or dyspnea Gastrointestinal Gastrointestinal: Denies abdominal pain, diarrhea, nausea or vomiting Genitourinary Genitourinary ED: Denies dysuria Musculoskeletal Musculoskeletal: Denies myalgias Integumentary Denies rash Neurologic Neurologic: Denies headache(s) Hematologic/Lymphatic Hematologic/Lymphatic: Reports easy bleeding and easy bruising EXAM Physical Exam Const Vital Signs: 07/22/22 21:43 Temperature 97.1 F L Temperature Source Temporal Pulse Rate 63 Respiratory Rate 16 Blood Pressure 164/104 H Blood Pressure Mean 124 Pulse Ox 96 Oxygen Delivery Method Room Air Positive well nourished, well developed and obese General Appearance ED: well developed Nutritional Appearance: obese HEENT Reports moist mucous membranes HEENT Narrative: Patient has postsurgical changes to the left upper jaw consistent with recent tooth extraction. There is mild ooze of blood from the left upper molar region with the development of clot formation. No tongue or lip swelling no oral lesions no airway edema or compromise. Eyes PERRL and EOMs intact bilaterally Neck supple Resp normal respiratory effort and clear to auscultation bilaterally Cardio regular rate and regular rhythm Extremity normal to inspection Neuro oriented x3 and CN's II-XII intact bilaterally Sensorium / Orientation: alert Psych mental status grossly normal Skin no rashes or lesions noted MDM MDM MDM Narrative Medical decision making narrative: Patient presented to the ER slightly hypertensive but otherwise with stable vitals. He reported persistent ooze of blood from the area of tooth extraction for multiple hours. Despite this he is awake alert and oriented with stable vitals and therefore do not feel there is need for imaging or laboratory studies. He is already developing clot formation but as there is still mild ooze of blood Surgicel will be placed to help control this. That was done in the ER and he was watched for another 20 minutes and the bleeding was reducing in severity where there was just a small trickle of blood present. Therefore at this time with stable vitals and improvement of symptoms there is no need for further work-up and he is otherwise safe for discharge. Discharge Plan Triage Chief Complaint: Dental ED Provider: Bertrand Holcomb Dx/Rx/DC Orders Clinical Impression: Postoperative bleeding from mouth, Current use of medical receptionist assistant anticoagulation, Paroxysmal atrial fibrillation with RVR Instructions: Dental Trauma Prescriptions: No Action acetaminophen [Arthritis Pain Relief (acetam)] 650 mg tablet extended release 650 mg PO Q8H PRN PRN (Reason: Pain Or Fever) multivitamin Tablet 1 tab PO DAILY atorvastatin 40 mg tablet 40 mg PO .QODAY Rx Instructions: TAKE 1 TABLET EVERY OTHER DAY amoxicillin-pot clavulanate 875-125 mg tablet 1 tab PO BID Qty: 20 0RF benzonatate 200 mg capsule 200 mg PO TID PRN (Reason: cough) Qty: 20 0RF latanoprost 0.005 % drops 1 drp LEFT EYE QHS brimonidine 0.1 % drops 1 drp LEFT EYE QHS ascorbic acid (vitamin C) 500 mg Capsule 1,000 mg PO BID diltiazem HCl 120 mg capsule,extended release 24 hr 120 mg PO BID Qty: 180 3RF Eliquis 5 mg tablet 5 mg PO BID Qty: 180 3RF metoprolol tartrate 100 mg tablet See Rx Instructions .ROUTE .COMPLEX Qty: 180 3RF Dose Instruction: TAKE 1 TABLET TWICE A DAY Rx Instructions: TAKE 1 TABLET TWICE A DAY amiodarone 200 mg tablet 200 mg PO DAILY 90 Days Qty: 90 3RF Primary Care Provider: Carmen Mcleod Referrals: Carmen Mcleod MD [Primary Care Provider] - Activity Restrictions/Additional Instructions: When you get home remove the gauze and bite down on a tea bag for 20 to 30 minutes with the Surgicel foam in place. After this timeframe you can remove the teabag and if the Surgifoam falls off you can place a new piece. You can leave this in place until the morning and then you can gargle with salt water to remove the remaining foam. If you have any further concerns please return to the ER for repeat evaluation Disposition Disposition: Home, Self Care Discharge Date/Time: 07/22/22 22:31
== END 2022-07-22 22:31 | disposition home or self-care (01) ==
PROVIDERS: Emergency Provider Emergency Medicine; PCP Family Medicine; Visit Provider Emergency Medicine
DX: K91.840 Postprocedural hemorrhage of a digestive system organ or structure following a digestive system procedure (principal); I48.0 Paroxysmal atrial fibrillation; I25.10 Atherosclerotic heart disease of native coronary artery without angina pectoris; I25.2 Old myocardial infarction; E66.9 Obesity, unspecified; Z87.891 Personal history of nicotine dependence; Z95.1 Presence of aortocoronary bypass graft; Z95.5 Presence of coronary angioplasty implant and graft; Z95.810 Presence of automatic (implantable) cardiac defibrillator; Z79.01 Long term (current) use of anticoagulants
CPT/HCPCS: 99282

== ENCOUNTER → 2023-05-22 | Outpatient (CLI) | payer MEDICARE, OTHER, SELFPAY ==
[2019-08-07 13:34] VITALS: BMI 27.5
--- NOTE | 2023-05-22 14:49 | CT_ITS ---
EXAM: CT CHEST, LUNG CANCER SCREENING WITHOUT INTRAVENOUS CONTRAST CLINICAL INDICATION: Personal history of nicotine dependence 1 pack per day x50 years. TECHNIQUE: Helically acquired images were obtained of the chest without intravenous contrast using low dose (LDCT) lung cancer screening protocol. This CT exam was performed using one or more of the following dose reduction techniques: automated exposure control, adjustment of the mA and/or kV according to patient size, and/or use of iterative reconstruction technique. COMPARISON: CTA chest, 01/31/2021. FINDINGS: LUNGS AND PLEURAL SPACES: There is a parenchymal solid nodule in the right upper lobe measuring proximally 4 mm (image 96, series 2). This is unchanged since prior exam. There is a calcified granuloma in the right lower lobe. There is a 3 mm nodule in the left lower lobe (series 2, image 134). Minimal dependent atelectasis in the right lower lobe. No pleural effusion or thickening. No pneumothorax. HEART: Coronary artery calcifications. Heart size is normal. No pericardial effusion. MEDIASTINUM: No significant abnormality. No mediastinal or hilar adenopathy. Esophagus is unremarkable. No hiatal hernia. THYROID: No significant abnormality. No thyroid lesions. BONES/JOINTS: Status post median sternotomy. Degenerative changes throughout the spine and shoulders. [place] left scoliotic curvature of the spine. No suspicious lytic or blastic abnormality. VASCULATURE: See above. LYMPH NODES: No significant abnormality. No enlarged lymph nodes. TUBES, LINES AND DEVICES: Left-sided cardiac pacer. CT/Low Dose CT Lung Screening IMPRESSION: ACR Lung CT Screening Reporting And Data System (Lung-RADS) score: 2 - Benign Appearance or Behavior. Recommend continued annual screening with a low-dose CT (LDCT) in 12 months. Electronically Signed: Humberto Whitlock, at 22:36 EST ,
== END | disposition home or self-care (01) ==
LOC: CT 14:46
PROVIDERS: PCP Family Medicine; Referring Provider Family Medicine; Visit Provider Family Medicine
DX: Z12.2 Encounter for screening for malignant neoplasm of respiratory organs (principal); Z87.891 Personal history of nicotine dependence
CPT/HCPCS: 71271

== ENCOUNTER → 2023-06-12 | Outpatient (CLI) | payer MEDICARE, OTHER, SELFPAY ==
[2019-08-07 13:34] VITALS: BMI 27.5
[2023-06-12 12:33] LABS: Absolute Lymphocyte Count 1.02 X10^3/uL (0.83-4.51); Absolute Neutrophil Count 5.6 X10^3/uL (2.0-7.7); Basophil% 1.3 % (0-1); Eosinophil# 0.41 X10^3/uL; Eosinophils% 5.2 % (0-5); Hematocrit 50.1 % (40-54); Hemoglobin 16.4 g/dL (13.0-16.5); Lymphocyte # 1.02 X10^3/ul (0.83-4.51); Lymphocyte % 13.1 % (19-41); Mean Corp Hgb Conc 32.7 g/dL (32-36); Mean Corpuscular Hgb 33.3 pg (27.0-32.0); Mean Corpuscular Volume 101.8 fL (80-94); Mean Platelet Vol. 10.7 fl (6.2-12.0); Monocyte# 0.65 X10^3/uL; Monocyte% 8.3 % (0-10); NRBC Flagged by Analyzer 0 % (0-5); Neutrophil # 5.59 X10^3/uL (2.7-7.7); Neutrophil % 71.6 % (47-70); Platelet Count 253 K/mm3 (150-450); RBC Distribution Width SD 52.5 fl (35.1-43.9); Red Blood Count 4.92 M/mm3 (4.6-6.2); White Blood Count 7.8 K/mm3 (4.4-11.0)
[2023-06-12 13:12] LABS: Microalbumin,Random Urine 13.3 mg/L (NO RANGE EST.); Microalbumin:Creatinine Ratio 23.3 mg/g CRE (<30 mg/g CRE)
[2023-06-12 13:25] LABS: AST(SGOT) 21 U/L (15-37); Alanine Aminotransfer ALT/SGPT 36 U/L (16-61); Albumin, Serum 3.8 g/dL (3.2-5.0); Alkaline Phosphatase 81 U/L (45-117); Anion Gap 6 (5-15); BUN 18 mg/dL (7-18); BUN/Creat Ratio 13.7 RATIO (10-20); Calcium,Total 9.6 mg/dL (8.5-10.1); Chloride 107 mmol/L (98-107); Cholesterol 134 mg/dL (200); Creatinine, Serum 1.31 mg/dL (0.70-1.30); EST Glomerular Filtration Rate 57 mL/min (>60); Est Glom Filt Rate - Afr Amer 69 mL/min (>60); Free T3 2.4 pg/mL (2.18-3.98); Globulin 3.9 g/dL (2.2-4.2); Glucose 151 mg/dL (74-106); High Density Lipoprotein 45 mg/dL; Potassium 4.3 mmol/L (3.5-5.1); Protein, Total 7.7 g/dL (6.4-8.2); Sodium Level 139 mmol/L (136-145); T4 Free Direct 1.23 ng/dL (0.76-1.46); Thyroid Stim Hormone (TSH) 4.22 uIU/mL (0.358-3.74); Triglycerides 102 mg/dL; Very Low Density Lipoprotein 20 mg/dL (5-40)
== END | disposition home or self-care (01) ==
LOC: BFHLAB 09:38
PROVIDERS: PCP Family Medicine; Visit Provider Family Medicine
DX: E03.9 Hypothyroidism, unspecified (principal); E11.9 Type 2 diabetes mellitus without complications; I25.10 Atherosclerotic heart disease of native coronary artery without angina pectoris
CPT/HCPCS: 36415; 80053; 80061; 82043; 82570; 84439; 84443; 84481; 85025

== ENCOUNTER → 2023-06-27 | Outpatient (CLI) | payer MEDICARE, OTHER, SELFPAY ==
[2019-08-07 13:34] VITALS: BMI 27.5
--- NOTE | 2023-06-27 12:39 | PFT ---
INTRODUCTION: The patient is a 72-year-old male who presents for pulmonary function studies secondary to amiodarone utilization. Respiratory therapy reported good patient effort. Bronchodilators were used during testing. INTERPRETATION: Forced expiration spirometry demonstrates no evidence of a large airways obstructive ventilatory defect. There is no significant response to aerosolized bronchodilators. Body plethysmography was performed and revealed a decreased TLC to 6.27 L, 77% of predicted, indicative of a mild restrictive ventilatory impairment. Diffusing capacity by single breath CO was reduced to 48% of predicted. IMPRESSION: Mild restrictive ventilatory impairment with moderate reduction in diffusing capacity.
== END | disposition home or self-care (01) ==
PROVIDERS: PCP Family Medicine; Referring Provider Nurse Practitioner Gerontology; Visit Provider Nurse Practitioner Gerontology
DX: Z79.899 Other long term (current) drug therapy (principal)
CPT/HCPCS: 94060; 94726; 94729

== ENCOUNTER 2023-07-30 10:21 | Emergency (ER) | payer MEDICARE, OTHER, SELFPAY ==
[2019-08-07 13:34] VITALS: BMI 27.5
[2023-07-30 10:22] VITALS: BP 116/78; PULSE 62; RESP 14; TEMP 36.2; O2SAT 97; BMI 29.9
--- NOTE | 2023-07-30 11:02 | RAD_ITS ---
STUDY: X-RAY - RIGHT KNEE REASON FOR EXAM: Male, 72 years old. pain, fall TECHNIQUE: 4 view(s) of the knee. COMPARISON: None. FINDINGS: There is demineralization of the visualized distal femur. There is demineralization of the tibia and fibula. Normal proximal tibiofibular articulation. There is severe degenerative arthrosis of the medial femorotibial compartment with severe joint space narrowing. Normal lateral femorotibial compartment. There is moderate degenerative arthrosis of the patellofemoral articulation. The soft tissue structures are unremarkable. RAD/Knee 4 or More Views IMPRESSION: Degenerative arthrosis. Electronically Signed: Mark Lazo MD at 11:44 EST ,
--- NOTE | 2023-07-30 11:02 | RAD_ITS ---
STUDY: X-RAY - UNILATERAL RIBS ( LEFT ) WITH CHEST REASON FOR EXAM: Male, 72 years old. trauma TECHNIQUE - RIBS: 4 view(s) of the ribs. TECHNIQUE - CHEST: Single PA view of the chest. COMPARISON: None. FINDINGS - RIBS: There is severe demineralization of the osseous structures which diminishes the diagnostic sensitivity of this examination, however there is no visualized rib fracture. FINDINGS - CHEST: Satisfactory appearance of a left subclavian pacemaker The lungs are clear and expanded. There is no demonstrated pleural abnormality. Sternal cerclage wires and vascular clips are present from a prior sternotomy and coronary artery bypass graft procedure (CABG). Normal mediastinum and schuyler. Normal visualized pulmonary arteries. Normal visualized aortic arch and descending thoracic aorta. Normal visualized thoracic spine. Normal visualized ribs, clavicles, and shoulders. There is no demonstrated abnormality of the visualized soft tissue structures of the upper abdomen. RAD/Ribs Uni Min 3V w/PA Chest IMPRESSION: RIBS: Demineralization, no demonstrated acute displaced rib fracture, pleural thickening or pneumothorax CHEST: No acute pulmonary process Electronically Signed: Mark Lazo MD at 11:45 EST ,
--- NOTE | 2023-07-30 11:11 | EX.ED.DYSGE1 ---
HPI History of Present Illness Chief Complaint: Wound Check Informant: patient Narrative Narrative: Patient is a 72-year-old male with history of coronary disease, CABG, ICD placement, atrial fibrillation on long-term anticoagulation on Eliquis presenting for evaluations after a fall. Patient fell Monday evening when he was going outside to walk his dog. The conditions were quite snowing and icy. He somehow slipped and fell forward. He was able to catch himself on his right knee and his bilateral wrist but did strike his left chest on a small retaining wall. Denies any his head or any loss of conscious. Is not having significant pain of the chest but is worried because he has a large amount of bruising that is right below where his pacemaker pocket is. Denies any difficulty breathing or shortness of breath. Is also having some pain and swelling of the right knee. Was looking up his symptoms online and wanted to come in to get checked out. Denies any lightheadedness or shortness of breath. No other complaints or concerns at this time. Is not having any significant pain right now. Drove himself to the emergency room. 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) Paroxysmal atrial fibrillation with RVR Stenosis of left subclavian artery Sustained ventricular tachycardia (03/24/19) Home Medications brimonidine 0.1 % eye drops 1 drp LEFT EYE QHS prevent glaucoma 03/23/19 [History Last Taken 07/25/21 22:00] latanoprost 0.005 % eye drops 1 drp LEFT EYE QHS prevent glaucoma 03/23/19 [History Last Taken 07/25/21 22:00] acetaminophen 650 mg tablet,extended release (Arthritis Pain Relief (acetaminophen) ER) 650 mg PO Q8H PRN PRN Pain Or Fever 04/27/19 [History Last Taken 07/25/21 08:00] multivitamin 1 tab PO DAILY vitamin 03/13/20 [History Last Taken 07/25/21 10:00] ascorbic acid (vitamin C) 500 mg capsule 1,000 mg PO BID vitamin 01/31/21 [History Last Taken 07/25/21 22:00] Handicap Placard ##1 11/03/22 [Rx Last Taken Unknown] atorvastatin 40 mg tablet See Rx Instructions .Route .COMPLEX #90 tabs 11/25/22 [Rx Last Taken Unknown] diltiazem HCl 120 mg capsule,24 hr,extended release 120 mg PO BID #180 caps 12/09/22 [Rx Last Taken Unknown] apixaban 5 mg tablet (Eliquis) 5 mg PO BID blood thinner #180 tabs 02/02/23 [Rx Last Taken Unknown] metoprolol tartrate 100 mg tablet See Rx Instructions .Route .COMPLEX #180 TABLETS 05/24/23 [Rx Last Taken Unknown] empagliflozin 25 mg tablet (Jardiance) 25 mg PO DAILY 06/12/23 [History Last Taken Unknown] amiodarone 200 mg tablet 100 mg (1/2 x 200 mg) PO DAILY 90 days #45 tabs 07/17/23 [Rx Last Taken Unknown] Allergy/AdvReac Type Severity Reaction Status Date / Time No Known Allergies Allergy Verified 07/30/23 10:24 Family History Father Negative FH of ASCVD Hypertension Father COPD (chronic obstructive pulmonary disease) Mother Hypertension Surgical History H/O coronary artery bypass surgery (04/04/19) History of coronary artery stent placement (10/29/17) History of electrophysiologic study (04/2019) History of herniorrhaphy History of implantable cardiac defibrillator (ICD) (04/12/19) History of left heart catheterization (04/04/19) Hx of elbow surgery Presence of implantable cardioverter-defibrillator (ICD) Social History household members: none Smoking Status: Former smoker quit date: 03/23/19 pack-years: 75 alcohol intake: former substance use type: does not use caffeine: Yes Type: coffee Number of servings: 2 and tea Number of servings: 1 ROS ROS ED Constitutional Constitutional ED: Denies chills or fever(s) Eyes Eyes: Denies blurry vision Cardiovascular Cardiovascular: Reports other Details: Bruising and injury to the left chest wall ; Denies chest pain Respiratory/Chest Respiratory/Chest: Denies cough or dyspnea Gastrointestinal Gastrointestinal: Denies abdominal pain, nausea or vomiting Musculoskeletal Musculoskeletal: Reports other Details: right knee pain ; Denies arthralgias or myalgias Integumentary Reports other Details: bruising to left chest and right knee Neurologic Neurologic: Denies headache(s), paresthesias or weakness Psychiatric Psychiatric: Denies anxiety Hematologic/Lymphatic Hematologic/Lymphatic: Reports easy bleeding and easy bruising EXAM Physical Exam Const Vital Signs: 07/30/23 10:22 Temperature 97.2 F L Temperature Source Temporal Pulse Rate 62 Respiratory Rate 14 Blood Pressure 116/78 Blood Pressure Mean 90 Pulse Ox 97 Oxygen Delivery Method Room Air Positive well nourished and well developed General Appearance ED: well developed and NAD HEENT Reports TM's clear and moist mucous membranes Negative for trauma Tympanic Membrane ED: Yes TM's clear Eyes PERRL Neck supple General: Negative for tenderness Chest Wall inspection of chest normal and palpation of chest normal Chest Narrative: Patient has a 15 cm x 8 cm slightly irregular area of ecchymosis to the left anterior chest wall below his pacemaker pouch. No associated chest wall crepitus or tenderness to palpation. No area of fluctuance or hematoma palpated underneath the ecchymosis. Resp normal respiratory effort and clear to auscultation bilaterally Cardio regular rate, regular rhythm and no murmurs GI normal to inspection, nondistended, normoactive bowel sounds and non-tender Extremity normal to inspection Extremity Narrative: No obvious deformity. Small area of swelling and ecchymosis as well as tenderness to the right knee, inferior aspect. No associated deformity or effusion appreciated. Extensor mechanism is intact. No significant laxity of the joint appreciated. General Extremety ED: Yes edema and tenderness General Extremity: edema Neuro oriented x3 Sensorium / Orientation: alert Motor Exam: Negative for general weakness Psych mental status grossly normal Skin no rashes or lesions noted Skin Narrative: Ecchymosis to the left anterior chest wall, see chest exam MDM MDM MDM Narrative Medical decision making narrative: Patient evaluated for chest wall bruising in the setting of a fall that occurred 2 days ago. He appears nontoxic no acute distress. Also has mild contusion to his knee. No associated large hematoma based on physical exam. Rib series with PA chest as well as knee x-ray obtained. Is interpreted by myself as well as radiology. Patient is degenerative changes of the knee with no acute fracture or effusion. On the chest x-ray patient does not appear to have any acute rib fracture and that pacemaker appears normal with the wires connected. Physical exam not consistent with a rib fracture. Patient is asymptomatic and I do not think has an active ongoing bleed. He did not hit his head so I do not think he requires a CT of the brain. We discharged home with expectant management. Counseled on the classic healing of the bruises and also counseled that the bruise might shift and will change colors as it heals. Patient ambulates easily out of emergency room. Verbalized agreement understand this plan. Discharged home in stable condition. Radiography Diagnostic Testing: Clinical Impression(s) from Imaging Studies Knee X-Ray 07/30/23 11:02 IMPRESSION: Degenerative arthrosis. Electronically Signed: Mark Lazo MD at 11:44 EST , Ribs w/Chest X-Ray 07/30/23 11:02 IMPRESSION: RIBS: Demineralization, no demonstrated acute displaced rib fracture, pleural thickening or pneumothorax CHEST: No acute pulmonary process Electronically Signed: Mark Lazo MD at 11:45 EST , Discharge Plan Triage Chief Complaint: Wound Check ED Provider: Ela Knowles Dx/Rx/DC Orders Clinical Impression: FDC (current) use of anticoagulants, Chest wall contusion, Contusion of knee, right Instructions: ED Soft Tissue Contusion Prescriptions: No Action acetaminophen [Arthritis Pain Relief (acetam)] 650 mg tablet extended release 650 mg PO Q8H PRN PRN (Reason: Pain Or Fever) multivitamin Tablet 1 tab PO DAILY (DME) Handicap Placard See Rx Instructions .Route .MEDSUPPLY Qty: 1 0RF Rx Instructions: Lifetime handicap placard. Expires 11/04/2027 Jardiance 25 mg tablet 25 mg PO DAILY latanoprost 0.005 % drops 1 drp LEFT EYE QHS brimonidine 0.1 % drops 1 drp LEFT EYE QHS ascorbic acid (vitamin C) 500 mg Capsule 1,000 mg PO BID atorvastatin 40 mg tablet See Rx Instructions .ROUTE .COMPLEX Qty: 90 3RF Dose Instruction: TAKE 1 TABLET EVERY OTHER DAY AT BEDTIME FOR CHOLESTEROL Rx Instructions: TAKE 1 TABLET EVERY OTHER DAY AT BEDTIME FOR CHOLESTEROL diltiazem HCl 120 mg capsule,extended release 24 hr 120 mg PO BID Qty: 180 3RF Eliquis 5 mg tablet 5 mg PO BID Qty: 180 3RF metoprolol tartrate 100 mg tablet See Rx Instructions .ROUTE .COMPLEX Qty: 180 3RF Dose Instruction: TAKE 1 TABLET TWICE A DAY Rx Instructions: TAKE 1 TABLET TWICE A DAY amiodarone 200 mg tablet 100 mg PO DAILY 90 Days Qty: 45 3RF Primary Care Provider: Carmen Mcleod Referrals: Carmen Mcleod MD [Primary Care Provider] - Activity Restrictions/Additional Instructions: There is not appear to be any underlying rib fractures, knee fracture or displacement of the wires of your pacemaker. Continue take your medications as prescribed. Disposition Disposition: Home, Self Care Discharge Date/Time: 07/30/23 13:14
--- OUTSIDE RECORDS SUMMARY | 2023-07-30 11:45 | XMS RPT_ITS | CCD ---
Author Name Unknown Address [address] [place] [address] [id number] [place] [address] Organization [facility] Care Team Providers Care Server Developer Name Role Phone ZAIRE SUAREZ DO Attending Unavailable ZAIRE SUAREZ DO Primary Care Unavailable ZAIRE SUAREZ DO Admitting Unavailable Results Test Name Value Interpretation Reference Range Facil ity Encounters Encounter Date Encounter Type Care Provider Facility Start: 07-25-2021 End: 07-26-2021 Emergency department patient visit ZAIRE BOWMAN [facility] Procedures Date Procedure Procedure Detail Performing Clinician Start: 04-03-2019 Electrocardiogram Payers Date Payer Category Payer Unknown [id number] [employer] ( and others) [id number] Medicare [id number] Summary Purpose Family History No Family History Records FoundNo Family History Records FoundNo Family History Records Found Advance Directives No Advanced Directives Records FoundNo Advanced Directives Records FoundNo Advanced Directives Records Found Hospital Course Note HNO ID: [id number] Author: Kaci patricia (Arsen) ARSEN Reyes Service: Cardiac Surgery Author Type: Nurse Practitioner Type: Discharge Summary Filed: 04/13/2019 10:46 AM Note Text: Attestation signed by Colt Gonzalez at 04/14/2019 1:00 PM Attending Note I have personally performed a face to face assessment of the patient and have reviewed the PA/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 My ellis findings include: Assessment/Plan are as above Other additions or changes: None Signature: Colt Gonzalez MD Date: 04/14/2019 Time: 1:00 PM DISCHARGE SUMMARY PATIENT NAME: Rigo Stacy Code Status: Not on file Highest Readmission Risk Score: 18 The 30 day readmissions risk score is derived from an internally validated risk model which evaluates patient level characteristics, utilization history, medication orders and lab results up until the day of discharge. (more content not included)... Note HNO ID: [id number] Author: Gina Le CNP Service: Cardiovascular Surgery Author Type: Nurse Practitioner Type: Procedures Filed: 04/08/2019 11:12 AM Note Text: BEDSIDE PROCEDURE NOTE Epicardial pacing wire removal Date/Start Time: 04/08/2019 11:11 AM Performed by: Jamee Le CNP Authorized by: Jamee Le CNP Consent/[place] Protocol Sign In Communication: Completed Time Out completed: Team confirms correct patient, procedure, side/site, position (if applicable) and completion AND review of fire risk assessment/protocols (if appropriate) Affirmation of Time Out: Yes Sign Out Discussion: Yes Pre-procedure Details: Personnel directly involved with the procedure wore the appropriate PPE. PPE Used: Sterile gloves The area was prepped with chlorhexidine (Chloroprep) and allowed to dry. A sterile partial body drape was applied following the usual aseptic technique. Medications: Procedure Details: Coagulation panel reviewed, patient chart reviewed. Right atrial and right ve (more content not included)... Procedure Findings Note HNO ID: [id number] Author: Gina Le CNP Service: Cardiovascular Surgery Author Type: Nurse Practitioner Type: Procedures Filed: 04/08/2019 11:12 AM Note Text: BEDSIDE PROCEDURE NOTE Epicardial pacing wire removal Date/Start Time: 04/08/2019 11:11 AM Performed by: Jamee Le CNP Authorized by: Jamee Le CNP Consent/[place] Protocol Sign In Communication: Completed Time Out completed: Team confirms correct patient, procedure, side/site, position (if applicable) and completion AND review of fire risk assessment/protocols (if appropriate) Affirmation of Time Out: Yes Sign Out Discussion: Yes Pre-procedure Details: Personnel directly involved with the procedure wore the appropriate PPE. PPE Used: Sterile gloves The area was prepped with chlorhexidine (Chloroprep) and allowed to dry. A sterile partial body drape was applied following the usual aseptic technique. Medications: Procedure Details: Coagulation panel reviewed, patient chart reviewed. Right atrial and right ve (more content not included)... Additional Source Comments (unrecognized sect ion and content) No Status Records FoundNo Status Records FoundNo Status Records Found INFORMATION SOURCE (unrecogn ized section and content) DATE CREATED AUTHOR AUTHOR'S ORGANIZ ATION 04/29/2020 [facility] [employer] [facility] DATE CREATED AUTHOR AUTHOR'S ORGANIZ ATION 02/09/2022 [facility] FOR RECORDS PERTAINING TO PATIENTS WHO ARE OR HAVE BEEN ENROLLED IN A CHEMICAL DEPENDENCY/SUBSTANCEABUSE PROGRAM, SOME INFORMATION MAY BE OMITTED. This clinical summary was aggregated from multiple sources. Caution should be exercised in using it in the provision of clinical care. This summary normalizes information from multiple sources, and as a consequence, information in this document may materially change the coding, format and clinical context of patient data. In addition, data may be omitted in some cases. CLINICAL DECISIONS SHOULD BE BASED ON THE PRIMARY CLINICAL RECORDS. [facility]. provides no warranty or guarantee of the accuracy or completeness of information in this document.
== END 2023-07-30 13:14 | disposition home or self-care (01) ==
PROVIDERS: Emergency Provider Emergency Medicine; PCP Family Medicine; Visit Provider Emergency Medicine
DX: S20.20XA Contusion of thorax, unspecified, initial encounter (principal); I48.0 Paroxysmal atrial fibrillation; S80.01XA Contusion of right knee, initial encounter; I25.10 Atherosclerotic heart disease of native coronary artery without angina pectoris; I25.2 Old myocardial infarction; Z95.1 Presence of aortocoronary bypass graft; Z95.810 Presence of automatic (implantable) cardiac defibrillator; Z79.01 Long term (current) use of anticoagulants; W19.XXXA Unspecified fall, initial encounter; Z87.891 Personal history of nicotine dependence
CPT/HCPCS: 71101; 73564; 99282

== ENCOUNTER → 2024-08-13 | Outpatient (CLI) | payer MEDICARE, OTHER, SELFPAY ==
[2019-08-07 13:34] VITALS: BMI 27.5
[2024-08-13 12:21] LABS: Absolute Lymphocyte Count 0.92 X10^3/uL (0.83-4.51); Absolute Neutrophil Count 5.3 X10^3/uL (2.0-7.7); Basophil# 0.07 X10^3/uL; Eosinophil# 0.37 X10^3/uL; Eosinophils% 5.2 % (0-5); Lymphocyte # 0.92 X10^3/ul (0.83-4.51); Lymphocyte % 12.8 % (19-41); Mean Corpuscular Hgb 32.9 pg (27.0-32.0); Mean Corpuscular Volume 99.8 fL (80-94); Mean Platelet Vol. 10.6 fl (6.2-12.0); Monocyte# 0.51 X10^3/uL; Monocyte% 7.1 % (0-10); NRBC Flagged by Analyzer 0 % (0-5); Neutrophil # 5.29 X10^3/uL (2.7-7.7); Neutrophil % 73.6 % (47-70); Platelet Count 226 K/mm3 (150-450); RBC Distribution Width CV 14.2 % (11.6-14.6); Red Blood Count 5.74 M/mm3 (4.6-6.2); White Blood Count 7.2 K/mm3 (4.4-11.0)
[2024-08-13 12:59] LABS: AST(SGOT) 22 U/L (15-37); Alanine Aminotransfer ALT/SGPT 29 U/L (16-61); Albumin, Serum 3.8 g/dL (3.2-5.0); Alkaline Phosphatase 82 U/L (45-117); Anion Gap 8 (5-15); BUN 15 mg/dL (7-18); BUN/Creat Ratio 11.4 RATIO (10-20); Calcium,Total 9.7 mg/dL (8.5-10.1); Chloride 107 mmol/L (98-107); Cholesterol 117 mg/dL (200); Creatinine, Serum 1.32 mg/dL (0.70-1.30); EST Glomerular Filtration Rate 56 mL/min (>60); Est Glom Filt Rate - Afr Amer 68 mL/min (>60); Free T3 2.5 pg/mL (2.18-3.98); Globulin 3.8 g/dL (2.2-4.2); Glucose 124 mg/dL (74-106); High Density Lipoprotein 42 mg/dL; Potassium 4.4 mmol/L (3.5-5.1); Protein, Total 7.6 g/dL (6.4-8.2); Sodium Level 139 mmol/L (136-145); T4 Free Direct 1.25 ng/dL (0.76-1.46); Triglycerides 121 mg/dL; Very Low Density Lipoprotein 24 mg/dL (5-40)
[2024-08-13 13:06] LABS: Microalbumin,Random Urine 27.6 mg/L (NO RANGE EST.); Microalbumin:Creatinine Ratio 37.4 mg/g CRE (<30 mg/g CRE)
[2024-08-13 13:17] LABS: Hematocrit 57.3 % (40-54)
[2024-08-13 13:20] LABS: Differential Indicated SCAN CRITERIA MET; Hemoglobin 18.9 g/dL (13.0-16.5)
[2024-08-13 14:57] LABS: Platelet Estimate ADEQUATE (ADEQ); Red Cell Morphology NORM C+C NORMAL (NORM C&C)
[2024-08-13 15:15] LABS: Vitamin B12 711 pg/mL (211-911)
[2024-08-13 15:19] LABS: Ferritin 118 ng/mL (26-388)
[2024-08-15 09:11] LABS: Pathologist Review Reviewed
== END | disposition home or self-care (01) ==
LOC: BFHLAB 08:48
PROVIDERS: PCP Family Medicine; Visit Provider Family Medicine
DX: E03.9 Hypothyroidism, unspecified (principal); E11.9 Type 2 diabetes mellitus without complications; I25.10 Atherosclerotic heart disease of native coronary artery without angina pectoris; D58.2 Other hemoglobinopathies
CPT/HCPCS: 36415; 80053; 80061; 82043; 82570; 82607; 82728; 84439; 84443; 84481; 85025

== ENCOUNTER 2024-12-17 17:46 | Emergency (ER) | payer MEDICARE, OTHER, SELFPAY ==
[2019-08-07 13:34] VITALS: BMI 27.5
[2024-12-17 17:47] VITALS: BP 104/79; PULSE 80; RESP 18; TEMP 36.8; O2SAT 94; BMI 28.2
--- NOTE | 2024-12-17 17:49 | EKG12_ITS ---
Test Reason : Blood Pressure : */* mmHG Vent. Rate : 80 BPM Atrial Rate : 80 BPM P-R Int : 204 ms QRS Dur : 118 ms QT Int : 422 ms P-R-T Axes : 67 -1 41 degrees QTcB Int : 486 ms Normal sinus rhythm Non-specific intra-ventricular conduction delay Prolonged QT Abnormal ECG Confirmed by Vinicius Landis ([id number]), desk editor SHITAL FLWOERS ([id number]) on 12/19/2024 6:08:43 AM Referred By: Confirmed By: Vinicius Landis
--- NOTE | 2024-12-17 17:55 | RAD_ITS ---
PROCEDURE: CHEST 1 VIEW (PORTABLE) 12/17/2024 REASON FOR EXAM: CHEST PAIN TECHNIQUE: Frontal view of the chest. COMPARISON: 07/30/2023 FINDINGS: No focal consolidations. Mild pulmonary vascular congestion. Cardiac silhouette is unchanged. Left chest pacer. Median sternotomy wires. Atherosclerotic aortic arch. No pleural effusion or pneumothorax. No acute fractures. RAD/Chest 1 View (Portable) IMPRESSION: No focal consolidations. Mild pulmonary vascular congestion. Reading Location: [id number]
--- NOTE | 2024-12-17 18:05 | EDS_ITS ---
HPI History of Present Illness Chief Complaint: Chest Pain Detail of Chief Complaint: Sharp left-sided chest pain near the anterior axillary line Informant: patient Onset/Context/Timing Onset: Today (Started several hours prior to presentation while he was sitting. This occurred after eating.) and Yesterday (Yesterday developed left upper extremity pain and has been constant since yesterday.) Activity at onset: sudden Timing: Continuous Quality: Positive for Aching (Left upper extremity) and Sharp (Left chest pain) Location: Left Chest Current Severity: Mild Maximum Severity: Moderate Worsened By: Nothing Relieved By: Nothing Associated Symptoms: Negative for Nausea, Vomiting, Diaphoresis, Dyspnea, Cough, Fever, Lightheadedness, Acid Reflux or Palpitations Narrative Narrative: Patient is a 74-year-old male. He has history of hypertension, hypercholesterolemia, non-ST elevation [place] March 2019 and status post two- vessel coronary bypass surgery. He states he has not had pain since his surgery. He presents with left-sided chest pain described as sharp. Been constant with past couple of hours. This occurred while sitting after he had a meal. He denies any associated symptoms. He states he had pain that started in the left scapular area and left upper extremity started yesterday has been constant. Nothing makes the pain better or worse. Nothing makes the chest pain better or worse. He denies black or maroon-colored stool. He denies intolerance to food. He denies history of GERD. Review of prior records however indicates he does have GERD. Patient does have problems with hearing and may have misinterpreted questions because multiple questions had to be repeated. Prior Similar Symptoms: No Recent Illness/Hospitalization: No CVD Risk Factors: Positive for Hypertension and Hypercholesterolemia; Negative for Family History 1' </=55 or Smoking (Former) PE Risk Factors: Negative for Recent Travel/Surgery, Recent Immobilization, Prior DVT or PE, Cancer or OCP + Smoking + >/=35 TAD Risk Factors: Positive for Hypertension; Negative for Marfan's Syndrome or Family History [facility] Medical History Tinea corporis Tinea cruris Acute bronchitis, unspecified Acute sinusitis, unspecified Paroxysmal atrial fibrillation with RVR Cellulitis of right knee History of non-ST elevation myocardial infarction (NSTEMI) (03/23/19) Nonsustained supraventricular tachycardia Nonsustained ventricular tachycardia Multiple lung nodules Sustained ventricular tachycardia (03/24/19) Essential (primary) hypertension 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) Nicotine dependence Atherosclerosis of coronary artery of [place] heart with angina pectoris HLD (hyperlipidemia) GERD (gastroesophageal reflux disease) [place] (hard of hearing) Stenosis of left subclavian artery Home Medications ?Medication ?Instructions ?Recorded ?Last Taken ?Type brimonidine 0.1 % eye drops 1 drp LEFT EYE QHS prevent glaucoma 03/23/19 12/17/24 History latanoprost 0.005 % eye drops 1 drp LEFT EYE QHS preve nt glaucoma 03/23/19 12/16/24 History acetaminophen 650 mg 650 mg PO Q8H PRN PRN Pain O r Fever 04/27/19 12/14/24 History tablet,extended release (Arthritis Pain Relief (acetaminophen) ER) multivitamin 1 tab PO DAILY vitamin 03/1312/17/24 History ascorbic acid (vitamin C) 500 mg 1,000 mg PO BID vitam in 01/31/21 12/17/24 History capsule Handicap Placard ##1 11/03/22 Unknown Rx amiodarone 100 mg tablet 100 mg PO DAILY 90 days #90 tabs 01/15/24 12/17/24 Rx apixaban 5 mg tablet (Eliquis) 5 mg PO BID for blood c lot #180 01/29/24 12/17/24 Rx TABLETS diltiazem HCl 120 mg capsule,24 120 mg PO BID #180 cap s 03/28/24 12/17/24 Rx hr,extended release metoprolol tartrate 100 mg tablet See Rx Instructions .Route 05/21/24 12/17/24 Rx .COMPLEX #180 TABLETS dulaglutide 0.75 mg/0.5 mL 0.75 mg subcut QWEEK 12/10/24 History subcutaneous pen injector (Trulicity) nystatin 100,000 unit/gram topical 1 applic topical BI D #60 grams 09/02/24 Unknown Rx powder atorvastatin 40 mg tablet 40 mg PO QHS for cholesterol 12/17/24 12/16/24 History clotrimazole-betamethasone 1 1 applic topical Q12H 05/0312/17/24 History %-0.05 % topical cream empagliflozin 25 mg tablet 25 mg PO DAILY 12/17/2405/03 History (Jardiance) Allergy/AdvReac Type Severity Reaction Status Date / Time No Known Allergies Allergy Verified 12/17/24 17:47 Family History Father Negative FH of ASCVD Hypertension Father COPD (chronic obstructive pulmonary disease) Mother Hypertension Surgical History Presence of implantable cardioverter-defibrillator (ICD) History of electrophysiologic study (04/2019) H/O coronary artery bypass surgery (04/04/19) History of implantable cardiac defibrillator (ICD) (04/12/19) History of left heart catheterization (04/04/19) History of coronary artery stent placement (10/29/17) Hx of elbow surgery History of herniorrhaphy Social History household members: none Smoking Status: Former smoker quit date: 03/23/19 pack-years: 75 alcohol intake: former substance use type: does not use caffeine: Yes Type: coffee Number of servings: 2 and tea Number of servings: 1 ROS ROS ED Constitutional Constitutional ED: Denies chills, fever(s), subjective, sweats or weight loss Eyes Eyes: Reports none ENT ENT ED: Denies ear pain, rhinorrhea or sore throat Cardiovascular Cardiovascular: Reports as per HPI; Denies orthopnea or paroxysmal nocturnal dyspnea Respiratory/Chest Respiratory/Chest: Denies cough, dyspnea, dyspnea on exertion, orthopnea, paroxysmal nocturnal dyspnea or sputum Gastrointestinal Gastrointestinal: Denies abdominal pain, constipation, diarrhea, melena, nausea or vomiting Musculoskeletal Musculoskeletal: Denies arthralgias, back pain, myalgias or neck pain Integumentary Denies Abrasions or rash Neurologic Neurologic: Denies headache(s), paresthesias or weakness Endocrine Endocrinology: Denies cold intolerance or heat intolerance EXAM Physical Exam Const Vital Signs: 12/17/24 17:47 12/17/24 18:07 12/17/24 18:09 Temperature 98.2 F Temperature Source Oral Pulse Rate 80 Respiratory Rate 18 Respiratory Effort Normal Non-Labored Blood Pressure 104/79 Blood Pressure Mean 87 Pulse Ox 94 97 Oxygen Delivery Method Room Air Room Air 12/17/24 19:13 12/17/24 20:06 12/17/24 22:00 Temperature Temperature Source Pulse Rate 78 79 78 Respiratory Rate 18 15 Respiratory Effort Blood Pressure 131/73 H 147/75 H 133/86 H Blood Pressure Mean 92 99 101 Pulse Ox 93 98 Oxygen Delivery Method Room Air Positive well nourished and well developed Constitutional Narrative: BMI is 28.2 General Appearance ED: well developed; Negative for pallor HEENT Reports moist mucous membranes normocephalic and atraumatic Eyes PERRL and EOMs intact bilaterally General Eye ED: Negative for pale conjunctiva or scleral icterus Neck no lymphadenopathy, supple and no JVD Chest Wall inspection of chest normal and palpation of chest normal Resp normal respiratory effort and clear to auscultation bilaterally Cardio regular rate, regular rhythm, S1 normal heart sound, S2 normal heart sound and no murmurs GI normal to inspection, nondistended, normoactive bowel sounds, soft to palpation, non-tender, non-distended and no masses; Negative for hepatosplenomegaly GI Narrative: There is no pulsatile mass or abdominal bruit. Back/Spine no CVA tenderness Extremity General Extremety ED: Yes edema; Negative for pulses abnormal or tenderness General Extremity: edema; Negative for pulses abnormal Neuro oriented x3 and CN's II-XII intact bilaterally Sensorium / Orientation: awake and alert Psych mental status grossly normal Skin no rashes or lesions noted and no wounds General Skin Exam: Negative for jaundice or pallor MDM MDM MDM Narrative Medical decision making narrative: Differential diagnosis cardiac versus noncardiac. Noncardiac would be pain of unknown etiology, history is not consistent with pulmonary embolus. History is not consistent with aortic dissection. There is no pleuritic component. History & Record Review Additional record(s) reviewed:: Prior outpatient record, Prior ED visit and Prior labs Lab Data Attestation: I reviewed the patient's lab results. Lab results narrative: H&H 18.8 and 53.7. MCV is elevated at 95.9. Hemoglobin was elevated in August as well. First troponin was 28. Second troponin was 30 with a delta of 2. 4-hour troponin was 23 with a delta of -7. Patient's history is not consistent with cardiac. At this point we will discharge to home. Labs: Laboratory Results - last 24 hr 12/17/24 12/17/2412/17/25 18:10 19:45 21:40 WBC 10.1 RBC 5.60 Hgb 18.8 H* Hct 53.7 MCV 95.9 H MCH 33.6 H MCHC 35.0 RDW Std Deviation 45.0 H RDW Coeff of Priscila 12.6 Plt Count 224 MPV 9.7 Immature Gran % (Auto) 0.400 Neut % (Auto) 75.5 H Lymph % (Auto) 12.3 L [place] % (Auto) 8.2 Eos % (Auto) 2.8 Baso % (Auto) 0.8 Absolute Neuts (auto) 7.6 Absolute Lymphs (auto) 1.24 Nucleated RBC % 0 PT 14.8 INR 1.1 Sodium 138 Potassium 4.0 Chloride 101 Carbon Dioxide 24.8 Anion Gap 13 BUN 16 Creatinine 1.18 Estim Creat Clear Calc 70.91 Est GFR (MDRD) Non-Af 64 BUN/Creatinine Ratio 13.5 Glucose 119 H Calcium 10.0 Troponin T High Sens 28 H Troponin T Hi Sens 2 Hr 30 H Troponin T Hi Sens 4Hr 23 H Radiography Chest X-Ray - ED: 1 View, Read by ED Physician (180, patient has a pacemaker noted. Single-chamber.), Heart, Lungs, Mediastinum, Bony Structures, No Acute Disease and Chronic Changes Diagnostic Testing: Clinical Impression(s) from Imaging Studies Chest X-Ray 12/17/24 17:55 IMPRESSION: No focal consolidations. Mild pulmonary vascular congestion. Reading Location: [facility] Radiology impression was reviewed and read. I do not believe patient has CHF. Differential Diagnosis Chest pain/SOB: pulmonary embolism Reason(s) PE less likely: Positive for Well's <3, not tachycardic, not hypoxic and patient taking oral anticoagulants, ACS ACS: Positive for no evidence of ACS based on cardiac biomarkers, EKG without ischemia and history not suggestive of ischemia pain, pneumothorax Reason(s) pneumothorax less likely: Positive for bilateral breath sounds and [employer] withhout PTX, pneumonia Reason(s) pneumonia less likely: Positive for no infiltrate on CXR, no elevation in WBC count, no noted fever and symptoms not consistent with acute infection, aortic dissection Reason(s) Aortic dissection less likely:: Positive for normal vascular exam, no history of HTN, normal neurological exam, no significant risk factors for dissection, no widened mediastinum on CXR, pain not sudden onset, no ripping/tearing pain and no pain to back, CHF Reason(s) CHF less likely: Positive for no significant peripheral edema, no orthopnea, no evidence of fluid overload on CXR and BtNP not significantly elevated over n ormal/baseline and COPD Reason(s) COPD less likely: Positive for no significant wheezing on exam, no tachypnea, no conversational dyspnea, normal air movement noted on auscultation on lungs and other (Patient not have a history of COPD) Treatment and Re-Evaluation :: Patient was informed of his results. Patient was informed the cause of his pain is uncertain. 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 Expires 11/04/2027 amiodarone 100 mg tablet 100 mg PO DAILY 90 Days Qty: 90 3RF Trulicity 0.75 mg/0.5 mL pen injector 0.75 mg subcut QWEEK nystatin 100,000 unit/gram powder 1 applic topical BID Qty: 60 1RF latanoprost 0.005 % drops 1 drp LEFT EYE QHS brimonidine 0.1 % drops 1 drp LEFT EYE QHS ascorbic acid (vitamin C) 500 mg Capsule 1,000 mg PO BID clotrimazole-betamethasone 1-0.05 % cream 1 applic topical Q12H Jardiance 25 mg tablet 25 mg PO DAILY atorvastatin 40 mg tablet 40 mg PO QHS Rx Instructions: PT STATES TAKES QOD Eliquis 5 mg tablet 5 mg PO BID Qty: 180 3RF diltiazem HCl 120 mg capsule,extended release 24 hr 120 mg PO BID Qty: 180 3RF metoprolol tartrate 100 mg tablet See Rx Instructions .ROUTE .COMPLEX Qty: 180 3RF Dose Instruction: TAKE 1 TABLET TWICE A DAY Rx Instructions: TAKE 1 TABLET TWICE A DAY Primary Care Provider: Carmen Mcleod Referrals: Carmen Mcleod MD [Primary Care Provider] - As Needed Print Language: Occitan Disposition Disposition: Acute Care Hospital
[2024-12-17 18:07] VITALS: O2SAT 97
[2024-12-17 18:29] LABS: Absolute Lymphocyte Count 1.24 X10^3/uL (0.83-4.51); Absolute Neutrophil Count 7.6 X10^3/uL (2.0-7.7); Basophil# 0.08 X10^3/uL; Basophil% 0.8 % (0-1); Eosinophil# 0.28 X10^3/uL; Eosinophils% 2.8 % (0-5); Hematocrit 53.7 % (40-54); Lymphocyte # 1.24 X10^3/ul (0.83-4.51); Lymphocyte % 12.3 % (19-41); Mean Corpuscular Hgb 33.6 pg (27.0-32.0); Mean Corpuscular Volume 95.9 fL (80-94); Mean Platelet Vol. 9.7 fl (6.2-12.0); Monocyte# 0.83 X10^3/uL; Monocyte% 8.2 % (0-10); NRBC Flagged by Analyzer 0 % (0-5); Neutrophil # 7.63 X10^3/uL (2.7-7.7); Neutrophil % 75.5 % (47-70); Platelet Count 224 K/mm3 (150-450); RBC Distribution Width CV 12.6 % (11.6-14.6); White Blood Count 10.1 K/mm3 (4.4-11.0)
[2024-12-17 18:35] LABS: Hemoglobin 18.8 g/dL (13.0-16.5)
--- NOTE | 2024-12-17 18:36 | ED.RN ---
Critical hgb of 18.[address] Ac notified
[2024-12-17 18:43] LABS: Anion Gap 13 (5-15); BUN 16 mg/dL (4-19); BUN/Creat Ratio 13.5 RATIO (10-20); Carbon Dioxide 24.8 mmol/L (21.0-32.0); Chloride 101 mmol/L (98-108); Creatinine, Serum 1.18 mg/dL (0.70-1.20); EST Glomerular Filtration Rate 64 (>60); Estimated Creatinine Clearance 70.91 ml/min (50-250); Glucose 119 mg/dL (70-99); Sodium Level 138 mmol/L (133-145)
[2024-12-17 18:45] LABS: International Normalized Ratio 1.1; Prothrombin Time (Protime)PT. 14.8 SECONDS (11.7-14.9)
[2024-12-17 18:55] LABS: Troponin T High Sensitivity 28 ng/L (<=22)
[2024-12-17 19:13] VITALS: BP 131/73; PULSE 78; RESP 18; O2SAT 93
[2024-12-17 20:06] VITALS: BP 147/75; PULSE 79
[2024-12-17 20:18] LABS: Troponin T High Sens 2 HR 30 ng/L (<=22)
[2024-12-17 22:00] VITALS: BP 133/86; PULSE 78; RESP 15; O2SAT 98
[2024-12-17 22:20] LABS: Troponin T High Sens 4 HR 23 ng/L (<=22)
[2024-12-17 22:53] VITALS: BP 133/86; PULSE 78; RESP 16; TEMP 36.8; O2SAT 98
== END 2024-12-17 22:57 | disposition home or self-care (01) ==
PROVIDERS: Emergency Provider Emergency Medicine; PCP Family Medicine; Visit Provider Emergency Medicine
DX: R07.9 Chest pain, unspecified (principal); I48.0 Paroxysmal atrial fibrillation; I10 Essential (primary) hypertension; M79.602 Pain in left arm; I25.10 Atherosclerotic heart disease of native coronary artery without angina pectoris; E78.00 Pure hypercholesterolemia, unspecified; K21.9 Gastro-esophageal reflux disease without esophagitis; I25.2 Old myocardial infarction; Z95.1 Presence of aortocoronary bypass graft; Z95.5 Presence of coronary angioplasty implant and graft; Z87.891 Personal history of nicotine dependence; Z95.810 Presence of automatic (implantable) cardiac defibrillator
CPT/HCPCS: 71045; 80048; 84484; 85025; 85610; 93005; 99284; A4216

== ENCOUNTER → 2025-01-24 | Outpatient (CLI) | payer MEDICARE, OTHER, SELFPAY ==
[2019-08-07 13:34] VITALS: BMI 27.5
--- OUTSIDE RECORDS SUMMARY | 2025-01-24 06:10 | XMS RPT_ITS | CCD ---
Author Organization [facility] CliniSypr Care Team Providers Care Cream Ripener Name Role Phone Dr. Jarad Mcwilliams Chi Primary Care Provider Dr. Honorio Muñoz Admit Provider Toni, Dr. Olmedo Attending Provider Dr. Honorio Muñoz Other Provider Dr. Fish Torres Other Provider Dr. Fish Torres Attending Provider Dr. Jarad Mcwilliams Chi Referring Provider Sita Haddad Attending Provider Unavailable Dr. Tawanda Hall Other Provider Dr. Tawanda Hall Attending Provider Dr. Carmen Mcleod Primary Care Provider Spike VEGETABLE BUNCHER, VEGETABLE BUNCHER-Anthony Padilla Attending Provider Dr. Carmen Mcleod Referring Provider Dr. Carmen Mcleod Primary Care Provider [phone] Dr. Fish Torres Attending Provider Dr. Fish Torres Referring Provider Roof VEGETABLE BUNCHER, VEGETABLE BUNCHER-Anthony Padilla Attending Provider Sita Haddad Attending Provider Unavailable ZAIRE SUAREZ DO Attending Unavailable ZAIRE USAREZ DO Primary Care Unavailable ZAIRE SUAREZ DO Admitting Unavailable Dr. Carmen Mcleod Primary Care Provider [phone] Dr. Carmen Mcleod Referring Provider Dr. Fish Torres Attending Provider Sita Haddad Attending Provider Unavailable Varun VEGETABLE BUNCHER, VEGETABLE BUNCHER-C Jonathan Attending Provider Dr. Carmen Mcleod Primary Care Provider Dr. Carmen Mcleod Referring Provider Sita Haddad Attending Provider Unavailable Varun VEGETABLE BUNCHER, VEGETABLE BUNCHER-C Jonathan Attending Provider LEONARD Brice Attending Provider [phone] Dr. Carmen Mcleod Primary Care Provider Dr. Fish Torres Attending Provider [phone] Carmen Mcleod Referring Provider Varun VEGETABLE BUNCHER, VEGETABLE BUNCHER-C Jonathan Attending Provider Varun VEGETABLE BUNCHER, VEGETABLE BUNCHER-C Jonathan Referring Provider Varun VEGETABLE BUNCHER, VEGETABLE BUNCHER-C Jonathan Other Provider [phone] Dr. Jorge Stanford Attending Provider Dr. Fish Torres Referring Provider [phone] Shani WILSON, Dr. Morales Primary Care Provider Dr. Carmen Mcleod MD Referring Provider Abraham Brice Attending Provider Dr. Fish Torres MD Attending Provider [phone] Dr. Cristino Ac MD Emergency Provider Carmen Mcleod Attending Unavailable Miedel, Carmen Primary Care Unavailable Miedel, Carmen Primary Care Unavailable Fish Torres Attending Unavailable Fish Torres Attending Unavailable Melissa, Fish Referring Unavailable Miedel, Carmen Primary Care Unavailable Miedel, Carmen Referring Unavailable Miedel, Carmen Primary Care Unavailable Abraham Brice Attending Unavailable MelissaFish frances Attending Unavailable Miedel, Carmen Primary Care Unavailable Miedel, Carmen Primary Care Unavailable Miedel, Carmen Referring Unavailable Roof Candelario MEAD Attending Unavailable Carmen Mcleod Primary Care Unavailable Fish Torres Attending Unavailable Fish Torres Referring Unavailable Carmen Mcleod Attending Unavailable Carmen Mcleod Primary Care Unavailable Carmen Mcleod Primary Care Unavailable Cristino Ac Attending Unavailable Medications Current Medications Medication Drug Class(es) Dates Sig (Normalized) Sig (Original) 8 hr acetaminophen 650 mg extended release oral tablet (11 sources) Start: 04-27-2019 take 1 tablet by mouth every eight hours as needed for pain Acetaminophen (Arthritis Pain Relief (Acetam)) 650 mg tablet extended release Active 650 mg PO EVERY 8 HOURS NEEDED as needed for Pain Or Fever April 27, 2019 12:00am amiodarone hydrochloride 100 mg oral tablet (20 sources) Antiarrhythmic Start: 01-15-2024 take 1 tablet by mouth once daily Amiodarone 100 mg tablet Active 100 mg PO DAILY 90 January 15, 2024 2:28pm Start: 06-30-2023 End: 01-15-2024 Amiodarone 200 mg tablet Discontinued 100 mg PO DAILY 45 July 17, 2023 10:15am January 15, 2024 2:52pm Start: 06-30-2023 End: 07-17-2023 take 100 mg by mouth once daily Amiodarone Active 100 MG PO DAILY 45 July 17, 2023 9:15am Start: 10-07-2021 End: 06-30-2023 take 1 tablet by mouth once daily Amiodarone 200 mg tablet Discontinued 200 mg PO DAILY 90 July 20, 2022 10:28am June 30, 2023 1:58pm Start: 08-04-2021 End: 10-07-2021 take 1 tablet by mouth twice daily Amiodarone 200 mg tablet Discontinued 200 mg PO TWICE A DAY 180 90 September 24, 2021 10:11am October 07, 2021 2:52pm Start: 07-27-2021 End: 08-04-2021 take 1 tablet by mouth three times daily, then take 1 tablet by mouth twice daily Amiodarone 200 mg Tablet Discontinued 200 mg PO THREE TIMES A DAY 180 60 July 27, 2021 1:00am August 04, 2021 11:00am Take 1 tablet 3 times a day for 1 week then transition to 1 tablet twice a day until you follow-up with cardiology Start: 04-27-2019 End: 03-03-2021 take 1 tablet by mouth once daily Amiodarone 200 mg tablet Discontinued 200 mg PO DAILY April 13, 2020 10:42am March 03, 2021 11:54am apixaban 5 mg oral tablet (20 sources) Factor Xa Inhibitor Start: 02-02-2021 End: 01-29-2024 take 1 tablet by mouth twice daily Apixaban (Eliquis) 5 mg tablet Active 5 mg PO TWICE A DAY January 29, 2024 7:53am ascorbic acid 500 mg oral capsule (20 sources) Vitamin C Start: 01-31-2021 take 2 capsules by mouth twice daily Ascorbic Acid (Vitamin C) 500 mg Capsule Active 1000 mg PO TWICE A DAY January 31, 2021 12:00am Start: 01-31-2021 take 1000 mg by mout h twice daily Ascorbic Acid (Vitamin C) Active 1000 MG PO TWICE A DAY January 30, 2021 11:00pm Start: 04-27-2019 End: 03-13-2020 take 1 capsule by mouth twice daily Ascorbic Acid (Vitamin C) 500 mg capsule Discontinued 500 mg PO TWICE A DAY April 27, 2019 12:00am March 13, 2020 10:39am atorvastatin 40 mg oral tablet (20 sources) HMG-CoA Reductase Inhibitor Start: 04-06-2018 End: 12-17-2024 take 1 tablet by mouth every other day at bedtime Atorvastatin 40 mg tablet Active 40 mg PO AT BEDTIME December 17, 2024 12:00am PT STATES TAKES QOD Start: 10-30-2017 End: 11-16-2017 take 1 tablet by mouth at bedtime Atorvastatin 40 MG tablet Discontinued 40 mg PO AT BEDTIME October 30, 2017 12:00am November 16, 2017 12:51pm betamethasone 0.5 mg/ml / clotrimazole 10 mg/ml topical cream (1 source) Azole Antifungal, Corticosteroid Start: 12-17-2024 Clotrimazole-Betamethasone 1-0.05 % cream Active 1 NMA TOPICAL Q12H December 17, 2024 12:00am brimonidine tartrate 1 mg/ml ophthalmic solution (11 sources) alpha-Adrenergic Agonist Start: 03-23-2019 Brimonidine 0.1 % drops Acti ve 1 NMA LEFT EYE AT BEDTIME March 23, 2019 12:00am Start: 03-23-2019 Brimonidine Ac tive 1 DRP LEFT EYE AT BEDTIME March 22, 2019 11:00pm 24 hr dilTIAZem hydrochloride 120 mg extended release oral capsule (20 sources) Calcium Channel Svitlana Start: 11-12-2021 End: 03-28-2024 take 1 capsule by mouth twice daily Diltiazem Hcl 120 mg capsule,extended release 24 hr Active 120 mg PO TWICE A DAY 180 March 28, 2024 2:37pm Start: 08-04-2021 End: 11-12-2021 take 1 capsule by mouth once daily Diltiazem Hcl 120 mg capsule,extended release 24 hr Discontinued 120 mg PO DAILY September 06, 2021 1:07pm November 12, 2021 4:01pm Start: 07-26-2021 End: 07-27-2021 take 1 capsule by mouth once daily, then take 1 capsule by mouth every twenty-four hours Diltiazem Hcl (Cardizem Cd) 240 mg Capsule,Extended Release 24hr Discontinued 240 mg PO DAILY July 26, 2021 1:00am July 27, 2021 1:16pm Start: 03-03-2021 End: 04-21-2021 take 1 capsule by mouth twice daily Diltiazem Hcl 180 mg capsule,extended release 24hr Discontinued 180 mg PO TWICE A DAY 180 April 19, 2021 9:14am April 21, 2021 10:22am Start: 02-02-2021 End: 03-03-2021 take 1 capsule by mouth once daily Diltiazem Hcl 240 mg capsule,extended release 24hr Discontinued 240 mg PO DAILY March 02, 2021 4:30pm March 03, 2021 11:30am 0.5 ml dulaglutide 1.5 mg/ml auto-injector (1 source) GLP-1 Receptor Agonist Start: 09-02-2024 Dulaglutide (Trulicity) 0.75 mg/0.5 mL pen injector Active 0.75 mg SC EVERY WEEK September 02, 2024 1:00am empagliflozin 25 mg oral tablet (6 sources) Sodium-Glucose Cotransporter 2 Inhibitor Start: 12-17-2024 take 1 tablet by mouth once daily Empagliflozin (Empagliflozin 25 Mg Tablet) 25 mg tablet Active 25 mg PO DAILY December 17, 2024 12:00am Start: 01-15-2024 End: 12-17-2024 take 1 tablet by mouth once daily Empagliflozin (Jardiance) 10 mg tablet Discontinued 10 mg PO daily January 15, 2024 12:00am December 17, 2024 6:33pm Start: 06-12-2023 End: 01-15-2024 take 1 tablet by mouth once daily Empagliflozin (Jardiance) 25 mg tablet Discontinued 25 mg PO DAILY June 12, 2023 1:00am January 15, 2024 2:01pm Handicap Placard (10 sources) Start: 11-03-[address] Active 0 .Route .[facility] 1 November 03, 2022 2:31pm Lifetime handicap placard. Expires 11/04/2027 Start: 11-03-[address] Active 0 .Route .[facility] 1 November 03, 2022 1:31pm Lifetime handicap placard. Expires 11/04/2027 Start: 11-03-2022 End: 11-03-2022 Handicap Placard Discontinue d 0 .Route .[facility] November 03, 2022 12:00am November 03, 2022 2:32pm Lifetime handicap placard. Expires 11/04/2027 Start: 11-03-2022 End: 11-03-2022 Handicap Placard Discontinue d 0 .Route .[facility] November 02, 2022 11:00pm November 03, 2022 1:32pm Lifetime handicap placard. Expires 11/04/2027 latanoprost 0.05 mg/ml ophthalmic solution (11 sources) Prostaglandin Analog Start: 03-23-[address] 0.005 % drops Active 1 NMA LEFT EYE AT BEDTIME March 23, 2019 12:00am Start: 03-23-2019 Latanoprost Ac tive 1 DRP LEFT EYE AT BEDTIME March 22, 2019 11:00pm metoprolol tartrate 100 mg oral tablet (20 sources) beta-Adrenergic Svitlana Start: 05-20-2024 End: 05-21-2024 Metoprolol Tartrate 100 mg tablet Active 0 .ROUTE .COMPLEX 180 May 21, 2024 9:54am TAKE 1 TABLET TWICE A DAY Start: 05-24-2023 End: 05-20-2024 Metoprolol Tartrate 100 mg t ablet Discontinued 0 .ROUTE .COMPLEX 180 May 24, 2023 4:37pm May 20, 2024 11:48am TAKE 1 TABLET TWICE A DAY Start: 05-24-2023 Metoprolol Tar trate Active 0 .ROUTE .COMPLEX 180 May 24, 2023 3:37pm TAKE 1 TABLET TWICE A DAY Start: 05-30-2022 End: 05-24-2023 Metoprolol Tartrate 100 mg t ablet Discontinued 0 .ROUTE .COMPLEX 180 May 30, 2022 9:07pm May 24, 2023 4:37pm TAKE 1 TABLET TWICE A DAY Start: 05-30-2022 End: 05-24-2023 Metoprolol Tartrate Disconti nued 0 .ROUTE .COMPLEX 180 May 30, 2022 8:07pm May 24, 2023 3:37pm TAKE 1 TABLET TWICE A DAY Start: 05-30-2022 Metoprolol Tar trate Active 0 .ROUTE .COMPLEX 180 May 30, 2022 8:07pm TAKE 1 TABLET TWICE A DAY Start: 07-01-2019 End: 05-30-2022 Metoprolol Tartrate 100 mg t ablet Discontinued 0 .ROUTE .COMPLEX 180 June 07, 2021 8:24am July 26, 2021 2:36pm TAKE 1 TABLET TWICE A DAY Start: 11-16-2017 End: 07-01-2019 take 1 tablet by mouth twice daily Metoprolol Tartrate 50 mg tablet Discontinued 50 mg PO TWICE A DAY 180 90 May 01, 2019 4:41pm July 01, 2019 11:36am Start: 10-30-2017 End: 11-16-2017 take 1 tablet by mouth twice daily Metoprolol Tartrate 25 MG tablet Discontinued 25 mg PO TWICE A DAY 60 October 30, 2017 12:00am November 16, 2017 12:52pm Start: 10-29-2017 End: 10-30-2017 take 1 tablet by mouth twice daily Metoprolol Tartrate 50 MG tablet Discontinued 50 mg PO TWICE A DAY October 29, 2017 12:00am October 30, 2017 8:53am Multivitamin preparation (20 sources) Start: 03-13-2020 take 1 tablet by mouth once daily Multivitamin Active 1 TABLET PO DAILY March 13, 2020 10:39am Start: 03-13-2020 take 1 tablet by diamond th once daily Multivitamin Active 1 TABLET PO DAILY March 12, 2020 11:00pm Start: 03-13-2020 take 1 tablet by diamond th once daily Multivitamin Active 1 TABLET PO DAILY March 13, 2020 12:00am Start: 03-25-2018 End: 04-27-2019 Multivitamin Discontinued 1 EACH PO DAILY March 25, 2018 10:01pm April 27, 2019 3:57pm Start: 03-25-2018 End: 04-27-2019 Multivitamin Discontinued 1 EACH PO DAILY March 24, 2018 11:00pm April 27, 2019 2:57pm Start: 03-25-2018 End: 04-27-2019 Multivitamin Discontinued 1 EACH PO DAILY March 25, 2018 12:00am April 27, 2019 3:57pm Multivitamin tablet (1 source) Start: 03-13-2020 Multivitamin t ablet Active 1 {tbl} PO DAILY March 13, 2020 12:00am nystatin 100 unt/mg topical powder (1 source) Polyene Antifungal Start: 09-02-2024 Nystatin 10 0,000 unit/gram powder Active 1 NMA TOPICAL TWICE A DAY 60 September 02, 2024 1:00am Completed/Discontinued Medications Medication Drug Class(es) Dates Sig (Normalized) Sig (Original) acyclovir 800 mg oral tablet (11 sources) Herpesvirus Nucleoside Analog DNA Polymerase Inhibitor, Herpes Simplex Virus Nucleoside Analog DNA Polymerase Inhibitor, Herpes Zoster Virus Nucleoside Analog DNA Polymerase Inhibitor Start: 01-24-2020 End: 01-31-2020 take 1 tablet by mouth every four hours Acyclovir 800 mg tablet Discontinued 800 mg PO Q4H 35 7 January 24, 2020 12:00am January 30, 2020 12:00am January 31, 2020 12:03am amoxicillin 875 mg / clavulanate 125 mg oral tablet (6 sources) Penicillin-class Antibacterial Start: 05-09-2022 End: 11-03-2022 Amoxicillin-Pot Clavulanate 875-125 mg tablet Discontinued 1 {tbl} PO TWICE A DAY May 09, 2022 12:00am November 03, 2022 2:20pm Start: 05-09-2022 End: 11-03-2022 take 1 tablet by mouth twice daily Amoxicillin-Pot Clavulanate Discontinued 1 TABLET PO TWICE A DAY May 08, 2022 11:00pm November 03, 2022 1:20pm aspirin 81 mg delayed release oral tablet (11 sources) Platelet Aggregation Inhibitor, Nonsteroidal Anti-inflammatory Drug Start: 10-30-2017 End: 02-02-2021 take 1 tablet by mouth once daily Aspirin 81 MG tablet Discontinued 81 mg PO DAILY@0800 October 30, 2017 12:00am February 02, 2021 10:08am B-Complex With Vitamin C (10 sources) Start: 10-03-2018 End: 04-27-2019 take 1 capsule by mouth once daily B-Complex With Vitamin C Discontinued 1 CAP PO DAILY October 03, 2018 1:56pm April 27, 2019 3:56pm Start: 10-03-2018 End: 04-27-2019 take 1 capsule by mouth once daily B-Complex With Vitamin C Discontinued 1 CAP PO DAILY October 02, 2018 11:00pm April 27, 2019 2:56pm Start: 10-03-2018 End: 04-27-2019 take 1 capsule by mouth once daily B-Complex With Vitamin C Discontinued 1 CAP PO DAILY October 03, 2018 12:00am April 27, 2019 3:56pm B-Complex With Vitamin C capsule (1 source) Start: 10-03-2018 End: 04-27-2019 B-Complex With Vitamin C capsule Discontinued 1 NMA PO DAILY October 03, 2018 12:00am April 27, 2019 3:56pm benzonatate 200 mg oral capsule (6 sources) Non-narcotic Antitussive Start: 05-09-2022 End: 06-12-2023 take 1 capsule by mouth three times daily as needed for cough Benzonatate 200 mg capsule Discontinued 200 mg PO THREE TIMES A DAY as needed for cough May 09, 2022 12:00am June 12, 2023 2:35pm clopidogrel 75 mg oral tablet (20 sources) [id number] Platelet Inhibitor Start: 04-27-2019 End: 03-03-2021 take 1 tablet by mouth once daily Clopidogrel 75 mg tablet Discontinued 75 mg PO DAILY April 13, 2020 10:42am March 03, 2021 11:32am doxycycline hyclate 100 mg oral tablet (11 sources) Tetracycline-cla ss Drug Start: 10-07-2021 End: 04-12-2022 take 1 tablet by mouth twice daily Doxycycline Hyclate 100 mg tablet Discontinued 100 mg PO TWICE A DAY October 07, 2021 12:00am April 12, 2022 1:59pm ferrous sulfate 325 mg oral tablet (11 sources) Start: 04-27-2019 End: 03-13-2020 take 1 tablet by mouth twice daily Ferrous Sulfate 325 mg (65 mg iron) tablet Discontinued 325 mg PO TWICE A DAY April 27, 2019 12:00am March 13, 2020 10:39am gabapentin 100 mg oral capsule (11 sources) Anti-epileptic Agent Start: 03-27-2020 End: 04-12-2022 Gabapentin 100 mg capsule Discontinued 100 NMA PO TWICE A DAY March 27, 2020 12:00am April 12, 2022 1:58pm hydroCHLOROthiazide 12.5 mg / lisinopril 20 mg oral tablet (20 sources) Thiazide Diuretic, Angiotensin Converting Enzyme Inhibitor Start: 11-16-2017 End: 04-27-2019 Lisinopril-Hydroc hlorothiazide 20-12.5 mg tablet Discontinued 1 {tbl} PO TWICE A DAY 180 90 November 16, 2017 12:00am April 27, 2019 3:57pm Start: 10-29-2017 End: 10-30-2017 Lisinopril/Hydrochlorothiazi de (Zestoretic 20/12.5 Tablet) 20-12.5 tablet Discontinued 20 mg PO TWICE A DAY October 29, 2017 12:00am October 30, 2017 8:53am lisinopril 5 mg oral tablet (11 sources) Angiotensin Converting Enzyme Inhibitor Start: 10-30-2017 End: 11-16-2017 take 1 tablet by mouth once daily Lisinopril 5 MG tablet Discontinued 5 mg PO DAILY October 30, 2017 12:00am November 16, 2017 12:52pm Magnesium Aspart,Citrate,Ox efra 400 mg magnesium capsule (1 source) Start: 04-27-2019 End: 03-27-2020 take 1 capsule by mouth twice daily Magnesium Aspart,Citrate,Oxid e 400 mg magnesium capsule Discontinued 400 mg PO TWICE A DAY April 27, 2019 12:00am March 27, 2020 8:53am Magnesium Oxide,Aspartate,C itr (10 sources) Start: 04-27-2019 End: 03-27-2020 take 400 mg by mouth twice daily Magnesium Oxide,Aspartate,Cit r Discontinued 400 MG PO TWICE A DAY April 27, 2019 3:52pm March 27, 2020 8:53am Start: 04-27-2019 End: 03-27-2020 take 400 mg by mouth twice daily Magnesium Oxide,Aspartate,Citr Discontinued 400 MG PO TWICE A DAY April 26, 2019 11:00pm March 27, 2020 7:53am Start: 04-27-2019 End: 03-27-2020 take 400 mg by mouth twice daily Magnesium Oxide,Aspartate,Citr Discontinued 400 MG PO TWICE A DAY April 27, 2019 12:00am March 27, 2020 8:53am melatonin 3 mg oral capsule (11 sources) Start: 04-27-2019 End: 05-01-2019 take 1 capsule by mouth at bedtime as needed Melatonin 3 mg capsule Discontinued 3 mg PO BEDTIME as needed April 27, 2019 12:00am May 01, 2019 3:43pm meloxicam 7.5 mg oral tablet (11 sources) Nonsteroidal Anti-inflammatory Drug Start: 01-31-2021 End: 02-02-2021 take 1 tablet by mouth every other day Meloxicam (Mobic) 7.5 mg Tablet Discontinued 7.5 mg PO EVERY OTHER DAY January 31, 2021 12:00am February 02, 2021 10:08am 24 hr metFORMIN hydrochloride 500 mg extended release oral tablet (20 sources) Biguanide Start: 03-13-2020 End: 03-27-2020 take 1 tablet by mouth every twenty-four hours Metformin 500 mg tablet extended release 24 hr Discontinued {tbl} PO March 13, 2020 12:00am March 27, 2020 8:53am Start: 04-27-2019 End: 05-01-2019 take 1 tablet by mouth once daily in the evening Metformin 1,000 mg tablet extended release 24hr Discontinued 1000 mg PO EVERY EVENING April 27, 2019 12:00am May 01, 2019 3:43pm Start: 10-30-2017 End: 11-15-2017 take 1 tablet intravenously twice daily at mealtime Metformin 500 MG tablet Discontinued 500 mg PO TWICE DAILY WITH MEALS 60 October 30, 2017 12:00am November 15, 2017 11:05am Please start medication in 72 hours secondary to recent IV contrast usage. Start: 10-30-2017 End: 11-15-2017 take 500 mg intravenously twice daily at mealtime Metformin Discontinued 500 MG PO TWICE DAILY WITH MEALS 60 October 29, 2017 11:00pm November 15, 2017 10:05am Please start medication in 72 hours secondary to recent IV contrast usage. Multivitamin 1 EACH tablet (1 source) Start: 03-25-2018 End: 04-27-2019 Multivitamin 1 EACH tablet Discontinued 1 NMA PO DAILY March 25, 2018 12:00am April 27, 2019 3:57pm sennosides, group home 8.6 mg oral tablet (11 sources) Start: 04-27-2019 End: 05-01-2019 take 1 tablet by mouth twice daily Sennosides (Senna) 8.6 mg tablet Discontinued 8.6 mg PO TWICE A DAY April 27, 2019 12:00am May 01, 2019 3:44pm ticagrelor 90 mg oral tablet (20 sources) Start: 10-30-2017 End: 04-27-2019 take 1 tablet by mouth twice daily Ticagrelor 90 mg tablet Discontinued 90 mg PO TWICE A DAY 180 November 05, 2018 10:57am April 27, 2019 3:47pm Problems Active Problems Problem Classification Problem Date Documented Da te Episodic/Chronic Acute bronchitis (7 sources) Acute bronchitis; 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: [Acute bronchitis, unspecified] Episodic Acute myocardial infarction (11 sources) Myocardial infarction; 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: [ST elevation (STEMI) myocardial infarction of unspecified site] 03-25-2018 Chronic Cardiac dysrhythmias (20 sources) Nonsustained ventricular tachycardia ; 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: [Supraventricular tachycardia] Onset: 03-24-2019 Chronic Comment on above: cardioverted in ER Complication of device; implant or graft (12 sources) Inappropriate shocks from implanted defibrillator; 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: [Other mechanical complication of other cardiac electronic device, initial encounter] Episodic Complications of surgical procedures or medical care (6 sources) Postoperative complication; 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: [Postoperative bleeding from mouth] 07-30-2022 Episodic Conduction disorders (20 sources) Automatic implantable cardiac defibrillator in situ; 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: [Presence of automatic (implantable) cardiac defibrillator] Chronic Congestive heart failure; nonhypertensive (11 sources) Heart failure with normal ejection fraction; 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: [Acute diastolic (congestive) heart failure] 02-02-2021 Chronic Coronary atherosclerosis and other heart disease (20 sources) Old inferior myocardial infarction; 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: [Old myocardial infarction] Onset: 10-29-2017 Chronic Diabetes mellitus without complication (1 source) Type 2 diabetes mellitus without complications; 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: [Type 2 diabetes mellitus without complications] Onset: 07-24-2024 Chronic Disorders of lipid metabolism (14 sources) Hyperlipidemia; 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: [Hyperlipidemia, unspecified] 10-21-2022 Chronic Essential hypertension (12 sources) Essential hypertension; 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: [Essential (primary) hypertension] 08-03-2021 Chronic Mycoses (4 sources) Tinea corporis; 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: [Tinea corporis] 09-02-2024 Episodic Nonspecific chest pain (2 sources) Left sided chest pain; 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: [Chest pain, unspecified] Onset: 12-26-2024 12-17-2024 Episodic Open wounds of extremities (11 sources) Laceration of toe; 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: [Laceration without foreign body of unspecified toe without damage to nail, initial encounter] 06-02-2020 Episodic Other aftercare (6 sources) Drug therapy finding; 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: [Other card lacer (current) drug therapy] 04-12-2022 Episodic Other aftercare (8 sources) Long-term current use of anticoagulant; 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: [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] 07-30-2022 Episodic Other aftercare (1 source) Long-term current use of amiodarone; 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: [Other card lacer (current) drug therapy] 04-12-2022 Episodic Other circulatory disease (11 sources) Stenosis of left subclavian artery; 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: [Stricture of artery] 03-25-2018 Chronic Other circulatory disease (1 source) H/O: heart disorder; 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: [Personal history of other diseases of the circulatory system] 12-17-2024 Episodic Other connective tissue disease (1 source) Pain in left arm; 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: [Pain in left arm] 12-17-2024 Episodic Other ear and sense organ disorders (11 sources) Hearing loss; 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: [Unspecified hearing loss, unspecified ear] 04-04-2018 Chronic Other lower respiratory disease (11 sources) Multiple nodules of lung; 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: [Other nonspecific abnormal finding of lung field] 06-01-2020 Episodic Other upper respiratory infections (7 sources) Acute sinusitis; 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: [Acute sinusitis, unspecified] Episodic Skin and subcutaneous tissue infections (11 sources) Cellulitis of right knee; 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: [Cellulitis of right lower limb] 10-21-2022 Episodic Substance-related disorders (11 sources) Nicotine dependence; 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: [Nicotine dependence, unspecified, uncomplicated] 03-23-2019 Chronic Superficial injury; contusion (4 sources) Contusion of chest; 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: [Contusion of unspecified front wall of thorax, initial encounter] 07-30-2023 Episodic Thyroid disorders (2 sources) Hypothyroidism, unspecified; 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: [Hypothyroidism, unspecified] Onset: 07-24-2024 Chronic Viral infection (11 sources) Herpes zoster; 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: [Zoster without complications] 02-27-2020 Episodic Past or Other Problems Problem Classification Problem Date Documented Da te Episodic/Chronic Coronary atherosclerosis and other heart disease (9 sources) Presence of coronary angioplasty implant and graft; 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: [Percutaneous transluminal coronary angioplasty status] Onset: 10-29-2017 Episodic Other aftercare (6 sources) Other card lacer (current) drug therapy; 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: [Long-term (current) use of other medications] Onset: 01-15-2024 Episodic Results Test Name Value Interpretation Reference Range Facility 12 Lead EKGon 12-17-2024 12 Lead EKG [facility] [address] [place] [address] 12 Lead EKG 12/17/24 1809 MR#: [id number] Acct: [id number] Name: RIGO DIAZ III Rep #: [id number] : 1950 74 From: Vinicius Landis MD Attending Dr: Status: DEP ER Ordering Dr: Cristino Ac MD Date: 12/17/24 Location: ED Sex: M C Admitted: Test Reason : Blood Pressure : */* mmHG Vent. Rate : 80 BPM Atrial Rate : 80 BPM P-R Int : 204 ms QRS Dur : 118 ms QT Int : 422 ms P-R-T Axes : 67 -1 41 degrees QTcB Int : 486 ms Normal sinus rhythm Non-specific intra-ventricular conduction delay Prolonged QT Abnormal ECG Confirmed by Vinicius Landis ([id number]), video editor PAM FLOWERS ([id number]) on 12/19/2024 6:08:43 AM Referred By: Confirmed By: Vinicius Landis 12/19/24 0608 Date Vinicius Landis MD CC: Dr. Carmen Mcleod MD; Dr. Cristino Ac MD Signed Normal [facility] Absolute lymphocyte countOrd ered By: Cristino Ac on 12-17-2024 Lymphocytes Auto (Unsp spec) [#/Vol] 1.24 10*3/uL 0.83-4.51 [facility] Absolute neutrophil countOrd ered By: Cristinogerald Ac on 12-17-2024 Neutrophils (Bld) [#/Vol] 7.6 10*3/uL 2.0-7.7 [facility] Anion gap in Serum or Plasma Ordered By: Cristinogerald Ac on 12-17-2024 Anion gap [Moles/Vol] 13 mmol/L 5-15 [facility] Automated lymphocyte count a s percentage of total leukocytesOrdered By: Cristino Ac on 12-17-2024 Lymphocytes/100 WBC Auto (Unsp spec) 12.3 % Low 19-41 [facility] BUN/creatinine ratioOrdered By: Cristinogerald Ac on 12-17-2024 Urea nitrogen/Creatinine [Mass ratio] 13.5 mg/mg - [facility] Basic Metabolic Profile (BMP )on 12-17-2024 BUN/CRE 13.5 RATIO Normal - [facility] Comment on above: Performed By: #### L 501.4021, L500.2500, L300.3900, L100.0100 ####[facility] [address] [place], [address] Calcium [Mass/Vol] 10.0 mg/dL Normal 7.6-11.0 [facility] Comment on above: Performed By: #### L 501.4021, L500.2500, L300.3900, L100.0100 ####[facility] [address] [place], [address] Chloride [Moles/Vol] 101 mmol/L Normal 98-108 [facility] Comment on above: Performed By: #### L 501.4021, L500.2500, L300.3900, L100.0100 ####[facility] [address] [place], [address] CO2 [Moles/Vol] 24.8 mmol/L Normal 21.0-32.0 [facility] Comment on above: Performed By: #### L 501.4021, L500.2500, L300.3900, L100.0100 ####[facility] [address] [place], [address] Creatinine [Mass/Vol] 1.18 mg/dL Normal 0.70-1.20 [facility] Comment on above: Performed By: #### L 501.4021, L500.2500, L300.3900, L100.0100 ####[facility] [address] [place], [address] ECRCL 70.91 ml/min Normal 50-250 [facility] Comment on above: Performed By: #### L 501.4021, L500.2500, L300.3900, L100.0100 ####[facility] [address] [place], [address] GAP 13 Normal 5-15 [facility] Comment on above: Performed By: #### L 501.4021, L500.2500, L300.3900, L100.0100 ####[facility] [address] [place], [address] GFR/1.73 sq M.predicted among non-blacks MDRD (S/P/Bld) [Vol rate/Area] 64 mL/min/{1.73_m2} Normal >60 [facility] Comment on above: Result Comment: mL/m in/1.73m2 CKD-EPI Creatinine Equation (2020) Performed By: #### L 501.4021, L500.2500, L300.3900, L100.0100 ####[facility] [address] [place], [address] Glucose [Mass/Vol] 119 mg/dL High 70-99 [facility] Comment on above: Performed By: #### L 501.4021, L500.2500, L300.3900, L100.0100 ####[facility] [address] [place], [address] Potassium [Moles/Vol] 4.0 mmol/L Normal 3.3-5.1 [facility] Comment on above: Performed By: #### L 501.4021, L500.2500, L300.3900, L100.0100 ####[facility] [address] [place], [address] Sodium [Moles/Vol] 138 mmol/L Normal 133-145 [facility] Comment on above: Performed By: #### L 501.4021, L500.2500, L300.3900, L100.0100 ####[facility] [address] [place], [address] Urea nitrogen [Mass/Vol] 16 mg/dL Normal 4-19 [facility] Comment on above: Performed By: #### L 501.4021, L500.2500, L300.3900, L100.0100 ####[facility] [address] [place], [address] Basophil percentageOrdered B y: Cristino Ac on 12-17-2024 Basophils/100 WBC (Bld) 0.8 % 0-1 [facility] CBC W/Diff, Automatedon 12-08 Hemoglobin (Bld) [Mass/Vol] 18.8 g/dL Invalid Interpretation Code 13.0-16.5 [facility] Comment on above: Result Comment: CRIT ICAL VALUE CALLED TO CARMEN KOCH 12/17/24 1834 Sylvie Sun. RESULTS READ BACK BY SAME. Performed By: #### L 501.4021, L500.2500, L300.3900, L100.0100 ####[facility] [address] [place], [address] Absolute Lymph 1.24 X10 3/uL Normal 0.83-4.51 [facility] Comment on above: Performed By: #### L 501.4021, L500.2500, L300.3900, L100.0100 ####[facility] [address] [place], [address] Absolute Neut 7.6 X10 3/uL Normal 2.0-7.7 [facility] Comment on above: Performed By: #### L 501.4021, L500.2500, L300.3900, L100.0100 ####[facility] [address] [place], [address] Basophils/100 WBC (Bld) 0.8 % Normal 0-1 [facility] Comment on above: Performed By: #### L 501.4021, L500.2500, L300.3900, L100.0100 ####[facility] [address] [place], [address] Eosinophils/100 WBC (Bld) 2.8 % Normal 0-5 [facility] Comment on above: Performed By: #### L 501.4021, L500.2500, L300.3900, L100.0100 ####[facility] [address] [place], [address] Erythrocyte distribution width (RBC) [Ratio] 12.6 % Normal 11.6-14.6 [facility] Comment on above: Performed By: #### L 501.4021, L500.2500, L300.3900, L100.0100 ####[facility] [address] [place], [address] Hematocrit (Bld) [Volume fraction] 53.7 % Normal 40-54 [facility] Comment on above: Performed By: #### L 501.4021, L500.2500, L300.3900, L100.0100 ####[facility] [address] [place], [address] IG% 0.400 Normal 0.0-0.9 [facility] Comment on above: Result Comment: IG% - Immature Granulocytes (promyelocytes, myelocytes and metamyelocytes) > 1% indicates that a LEFT SHIFT is Present. Performed By: #### L 501.4021, L500.2500, L300.3900, L100.0100 ####[facility] [address] [place], [address] Lymphocytes/100 WBC (Bld) 12.3 % Low 19-41 [facility] Comment on above: Performed By: #### L 501.4021, L500.2500, L300.3900, L100.0100 ####[facility] [address] [place], [address] MCH (RBC) [Entitic mass] 33.6 pg High 27.0-32.0 [facility] Comment on above: Performed By: #### L 501.4021, L500.2500, L300.3900, L100.0100 ####[facility] [address] [place], [address] MCHC (RBC) [Mass/Vol] 35.0 g/dL Normal 32-36 [facility] Comment on above: Performed By: #### L 501.4021, L500.2500, L300.3900, L100.0100 ####[facility] [address] [place], [address] MCV (RBC) [Entitic vol] 95.9 fL High 80-94 [facility] Comment on above: Performed By: #### L 501.4021, L500.2500, L300.3900, L100.0100 ####[facility] [address] [place], [address] Monocytes/100 WBC (Bld) 8.2 % Normal 0-10 [facility] Comment on above: Performed By: #### L 501.4021, L500.2500, L300.3900, L100.0100 ####[facility] [address] [place], [address] Neutrophils/100 WBC (Bld) 75.5 % High 47-70 [facility] Comment on above: Performed By: #### L 501.4021, L500.2500, L300.3900, L100.0100 ####[facility] [address] [place], [address] Nucleated RBC (Bld) [#/Vol] 0 10*3/uL Normal 0-5 [facility] Comment on above: Performed By: #### L 501.4021, L500.2500, L300.3900, L100.0100 ####[facility] [address] [place], [address] Platelet mean volume (Bld) [Entitic vol] 9.7 fL Normal 6.2-12.0 [facility] Comment on above: Performed By: #### L 501.4021, L500.2500, L300.3900, L100.0100 ####[facility] [address] [place], [address] Platelets (Bld) [#/Vol] 224 10*3/uL Normal 150-450 [facility] Comment on above: Performed By: #### L 501.4021, L500.2500, L300.3900, L100.0100 ####[facility] [address] [place], [address] RBC (Bld) [#/Vol] 5.60 10*6/uL Normal 4.6-6.2 [facility] Comment on above: Performed By: #### L 501.4021, L500.2500, L300.3900, L100.0100 ####[facility] [address] [place], [address] RDW SD 45.0 fl High 35.1-43.9 [facility] Comment on above: Performed By: #### L 501.4021, L500.2500, L300.3900, L100.0100 ####[facility] [address] [place], [address] WBC (Bld) [#/Vol] 10.1 10*3/uL Normal 4.4-11.0 [facility] Comment on above: Performed By: #### L 501.4021, L500.2500, L300.3900, L100.0100 ####[facility] [address] [place], [address] Carbon dioxide, total [Moles /volume] in Central venous bloodOrdered By: Cristino Ac on 12-17-2024 CO2 [Moles/Vol] 24.8 mmol/L 21.0-32.0 [facility] Chest 1 View (Portable)on Chest 1 View (Portable) [facility] Imaging Services [address] [place] [address] Chest 1 View (Portable) MR#: [id number] Acct: [id number] Name: RIGO DIAZ [facility] Rep #: [id number] : 1950 M 74 From: Uday Zhong PCP: Dr. Carmen Mcleod MD Status: [facility] ER Study: Chest 1 View (Portable) Date of Exam: 12/17/24 Exam# [id number] Ordering Dr: Cristino Ac MD PROCEDURE: CHEST 1 VIEW (PORTABLE) 12/17/2024 REASON FOR EXAM: CHEST PAIN TECHNIQUE: Frontal view of the chest. COMPARISON: 07/30/2023 FINDINGS: No focal consolidations. Mild pulmonary vascular congestion. Cardiac silhouette is unchanged. Left chest pacer. Median sternotomy wires. Atherosclerotic aortic arch. No pleural effusion or pneumothorax. No acute fractures. RAD/Chest 1 View (Portable) IMPRESSION: No focal consolidations. Mild pulmonary vascular congestion. Reading Location: [facility] CC: Dr. Carmen Mcleod MD; Dr. Cristino Ac MD Technical Documentation Specialist: Signed Normal [facility] Chloride assayOrdered By: Aimee Ac on 12-17-2024 Chloride [Moles/Vol] 101 mmol/L 98-108 [facility] Emergency Department Summary on 12-17-2024 Emergency Department Summary [facility] Medical Records Department [address] [place] [address] Emergency Department Summary 12/17/24 MR#: [id number] Acct: [id number] Name: RIGO DIAZ III Rep #: [id number] : 1950 74 From: Cristino Ac MD PCP: Dr. Carmen Mcleod MD Status:REG ER Location: ED HPI History of Present Illness Chief Complaint: Chest Pain Detail of Chief Complaint: Sharp left-sided chest pain near the anterior axillary line Informant: patient Onset/Context/Timing Onset: Today (Started several hours prior to presentation while he was sitting. This occurred after eating.) and Yesterday (Yesterday developed left upper extremity pain and has been constant since yesterday.) Activity at onset: sudden Timing: Continuous Quality: Positive for Aching (Left upper extremity) and Sharp (Left chest pain) Location: Left Chest Current Severity: Mild Maximum Severity: Moderate Worsened By: Nothing Relieved By: Nothing Associated Symptoms: Negative for Nausea, Vomiting, Diaphoresis, Dyspnea, Cough, Fever, Lightheadedness, Acid Reflux or Palpitations Narrative Narrative: Patient is a 74-year-old male. He has history of hypertension, hypercholesterolemia, non-ST elevation [place] March 2019 and status post two-vessel coronary bypass surgery. He states he has not had pain since his surgery. He presents with left-sided chest pain described as sharp. Been constant with past couple of hours. This occurred while sitting after he had a meal. He denies any associated symptoms. He states he had pain that started in the left scapular area and left upper extremity started yesterday has been constant. Nothing makes the pain better or worse. Nothing makes the chest pain better or worse. He denies black or maroon-colored stool. He denies intolerance to food. He denies history of GERD. Review of prior records however indicates he does have GERD. Patient does have problems with hearing and may have misinterpreted questions because multiple questions had to be repeated. Prior Similar Symptoms: No Recent Illness/Hospitalizati on: No CVD Risk Factors: Positive for Hypertension and Hypercholesterolemia; Negative for Family History 1' PE Risk Factors: Negative for Recent Travel/Surgery, Recent Immobilization, Prior DVT or PE, Cancer or OCP + Smoking + >/=35 TAD Risk Factors: Positive for Hypertension; Negative for Marfan's Syndrome or Family History PFSH PFSH Medical History Tinea corporis Tinea cruris Acute bronchitis, unspecified Acute sinusitis, unspecified Paroxysmal atrial fibrillation with RVR Cellulitis of right knee History of non-ST elevation myocardial infarction (NSTEMI) (03/23/19) Nonsustained supraventricular tachycardia Nonsustained ventricular tachycardia Multiple lung nodules Sustained ventricular tachycardia (03/24/19) Essential (primary) hypertension 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) Nicotine dependence 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 HLD (hyperlipidemia) GERD (gastroesophageal reflux disease) [place] (hard of hearing) Stenosis of left subclavian artery Home Medications ???Medication ???Instructions ???Recorded ???Last Taken ???Type brimonidine 0.1 % eye drops 1 drp LEFT EYE QHS prevent glaucom a 03/23/19 12/17/24 History latanoprost 0.005 % eye drops 1 drp LEFT EYE QHS prevent glaucom a 03/23/19 12/16/24 History acetaminophen 650 mg 650 mg PO Q8H PRN PRN Pain Or Feve r 04/27/19 12/14/24 History tablet,extended release (Arthritis Pain Relief (acetaminophen) ER) multivitamin 1 tab PO DAILY vitamin 03/13/20 History ascorbic acid (vitamin C) 500 mg 1,000 mg PO BID vitamin 01/31/21 0 12/17/24 History capsule Handicap Placard ##1 11/03/22 Unknown Rx amiodarone 100 mg tablet 100 mg PO DAILY 90 days #90 tabs 0 01/15/24 12/17/24 Rx apixaban 5 mg tablet (Eliquis) 5 mg PO BID for blood clot #180 12/17/24 Rx TABLETS diltiazem HCl 120 mg capsule,24 120 mg PO BID #180 caps 03/28/24 0 12/17/24 Rx hr,extended release metoprolol tartrate 100 mg tablet See Rx Instructions .Route 12/17/24 Rx .COMPLEX #180 TABLETS dulaglutide 0.75 mg/0.5 mL 0.75 mg subcut QWEEK 09/02/2410/01 [facility] nystatin 100,000 unit/gram topical 1 applic topical BID #60 grams 0 09/02/24 Unknown Rx powder atorvastatin 40 mg tablet 40 mg PO QHS for cholesterol 12/1712/16/24 History clotrimazole-betameth asone 1 1 applic topical Q12H 12/17/2405/03 History %-0.05 % topical cream empagliflozin 25 mg tablet 25 mg PO DAILY 12/17/24 12/17/24 H istory (Jardiance) Allergy/AdvReac Type Severity Reaction Status Date / Time No Known Allergies Allergy Verified (more content not included)... Normal [facility] Eosinophil percentageOrdered By: Cristino Ac on 12-17-2024 Eosinophils/100 WBC (Bld) 2.8 % 0-5 [facility] Erythrocyte distribution wid th ratioOrdered By: Cristino Ac on 12-17-2024 Erythrocyte distribution width (RBC) [Ratio] 12.6 % 11.6-14.6 [facility] Erythrocyte distribution wid th standard deviationOrdered By: Cristino Ac on 12-17-2024 Erythrocyte distribution width (RBC) [Ratio] 45.0 fl High 35.1-43.9 [facility] Glomerular filtration rate ( GFR) estimation/1.73 sq m using serum, plasma, or whole bOrdered By: Cristino Ac on 12-17-2024 GFR/1.73 sq M.predicted among non-blacks MDRD (S/P/Bld) [Vol rate/Area] 64 mL/min/{1.73_m2} >60 [facility] Comment on above: mL/min/1.73m2 CKD-EP I Creatinine Equation (2020) Hematocrit Auto (Bld) [Volum e fraction]Ordered By: Cristino Ac on 12-17-2024 Hematocrit (Bld) [Volume fraction] 53.7 % 40-54 [facility] Hemoglobin measurementOrdere d By: Cristino Ac on 12-17-2024 Hemoglobin (Bld) [Mass/Vol] 18.8 g/dL High 13.0-16.5 [facility] Comment on above: CRITICAL VALUE PURCELL D TO CARMEN KOCH12/17/24 1834 Sylvie Snu.RESULTS READ BACK BY SAME. Immature granulocytes/100 WB C Auto (Bld)Ordered By: Cristino Ac on 12-17-2024 Immature granulocytes/100 WBC (Bld) 0.400 % 0.0-0.9 [facility] Comment on above: IG% - Immature Granu locytes (promyelocytes, myelocytes and metamyelocytes) > 1% indicates that a LEFT SHIFT is Present. International normalized rat io (INR) calculationOrdered By: Cristinogerald Ac on 12-17-2024 INR Coag (Bld) [Relative time] 1.1 {INR} [facility] L499.0042on 12-17-2024 Trop T High Sen 30 ng/L High <=22 [facility] Comment on above: Performed By: #### L 499.0042 #### [facility] [address] [facility] [place], [place], [address] L499.0043on 12-17-2024 Trop T High Sen 23 ng/L High <=22 [facility] Comment on above: Performed By: #### L 499.0043 #### [facility] [address] [facility] [facility] [place], [address] L501.4021on 12-17-2024 Trop T High Sen 28 ng/L High <=22 [facility] Comment on above: Performed By: #### L 501.4021, L500.2500, L300.3900, L100.0100 ####[facility] [address] [place], [address] MCV (mean corpuscular volume ) determinationOrdered By: Cristino Ac on 12-17-2024 MCV (RBC) [Entitic vol] 95.9 fL High 80-94 [facility] Mean corpuscular hemoglobin (MCH) determinationOrdered By: Cristinogerald Ac on 12-17-2024 MCH (RBC) [Entitic mass] 33.6 pg High 27.0-32.0 [facility] Mean corpuscular hemoglobin concentration (MCHC) determinationOrdered By: Cristino Ac on 12-17-2024 MCHC (RBC) [Mass/Vol] 35.0 g/dL 32-36 [facility] Mean platelet volume determi nationOrdered By: Cristinogerald Ac on 12-17-2024 Platelet mean volume (Bld) [Entitic vol] 9.7 fL 6.2-12.0 [facility] Monocyte percentageOrdered B y: Cristino Ac on 12-17-2024 Monocytes/100 WBC (Bld) 8.2 % 0-10 [facility] Neutrophil percentageOrdered By: [facility] on 12-17-2024 Neutrophils/100 WBC (Bld) 75.5 % High 47-70 [facility] Nucleated red blood cell per centageOrdered By: Cristinogerald Ac on 12-17-2024 Nucleated RBC/100 WBC (Bld) [Ratio] 0 % 0-5 [facility] Platelet countOrdered By: [facility] Ac on 12-17-2024 Platelets (Bld) [#/Vol] 224 10*3/uL 150-450 [facility] Potassium measurement (mass/ volume)Ordered By: Cristinogerald Ac on 12-17-2024 Potassium (Unsp spec) [Mass/Vol] 4.0 mmol/L 3.3-5.1 [facility] Prothrombin Time w/INRon INR Coag (PPP) [Relative time] 1.1 {INR} Normal [facility] Comment on above: Performed By: #### L 501.4021, L500.2500, L300.3900, L100.0100 ####[facility] [address] [place], [address] PT Coag (PPP) [Time] 14.8 s Normal 11.7-14.9 [facility] Comment on above: Performed By: #### L 501.4021, L500.2500, L300.3900, L100.0100 ####[facility] [address] [place], [address] Prothrombin timeOrdered By: Cristino Ac on 12-17-2024 PT Coag (PPP) [Time] 14.8 s 11.7-14.9 [facility] RBC Auto (Bld) [#/Vol]Ordere d By: Cristino Ac on 12-17-2024 RBC (Bld) [#/Vol] 5.60 10*6/uL 4.6-6.2 [facility] Serum creatinine measurement (mass/volume)Ordered By: Cristino Ac on 12-17-2024 Creatinine [Mass/Vol] 1.18 mg/dL 0.70-1.20 [facility] Serum glucose measurement (m ass/volume)Ordered By: Cristino Ac on 12-17-2024 Glucose [Mass/Vol] 119 mg/dL High 70-99 [facility] Serum or plasma calcium [place] urement (mass/volume)Ordered By: Cristino Ac on 12-17-2024 Calcium [Mass/Vol] 10.0 mg/dL 7.6-11.0 [facility] Serum or plasma urea nitroge n measurement (mass/volume)Ordered By: Cristino Ac on 12-17-2024 Urea nitrogen [Mass/Vol] 16 mg/dL 4-19 [facility] Sodium levelOrdered By: Cristinogerald Ac on 12-17-2024 Sodium [Moles/Vol] 138 mmol/L 133-145 [facility] Troponin T.cardiac [Mass/vol ume] in Serum or Plasma by High sensitivity methodOrdered By: Cristino Ac on 12-17-2024 Troponin T.cardiac High sensitivity method [Mass/Vol] 23 ng/L High <22 [facility] Troponin T.cardiac High sensitivity method [Mass/Vol] 30 ng/L High <22 [facility] Troponin T.cardiac High sensitivity method [Mass/Vol] 28 ng/L High <22 [facility] White blood cell (WBC) count Ordered By: Cristino Ac on 12-17-2024 WBC (Bld) [#/Vol] 10.1 10*3/uL 4.4-11.0 [facility] Urgent Care Visit Reporton 0 09-02-2024 Urgent Care Visit Report [facility] [address], [address] [place] [address] OFFICE VISIT Date of Service: 09/02/24 MR#: [id number] Acct: [id number] Name: RIGO DIAZ III Rep #: [id number] : 1950 Provider: LEONARD Sands Age/Sex: 73/M Location[place] [facility] Status: Signed Intake Vital Signs 01/15/24 13:52 09/02/24 12:47 Height 6 ft 4 in 6 ft 4 in BP 100/60 Position Sitting Pulse 76 Temp 98.0 F Temp Source Oral Pulse Oximetry (%) 97 Oxygen Delivery Method room air Intake Visit Reasons: Rash Accompanied by: Self Allergies No Known Allergies Allergy (Verified 09/02/24 12:46) Medications ???Medication ???Instructions ???Recorded ???Confirmed ???Type brimonidine 0.1 % eye drops 1 drp LEFT EYE QHS prevent glaucom a 03/23/19 09/02/24 History latanoprost 0.005 % eye drops 1 drp LEFT EYE QHS prevent glaucom a 03/23/19 09/02/24 History acetaminophen 650 mg 650 mg PO Q8H PRN PRN Pain Or Feve r 04/27/19 09/02/24 History tablet,extended release (Arthritis Pain Relief (acetaminophen) ER) multivitamin 1 tab PO DAILY vitamin 03/13/20 History ascorbic acid (vitamin C) 500 mg 1,000 mg PO BID vitamin 01/31/21 0 09/02/24 History capsule Handicap Placard ##1 11/03/22 09/02/24 Rx amiodarone 100 mg tablet 100 mg PO DAILY 90 days #90 tabs 0 01/15/24 09/02/24 Rx empagliflozin 10 mg tablet 10 mg PO QDAY 01/15/24 09/02/24 Hi story (Jardiance) apixaban 5 mg tablet (Eliquis) 5 mg PO BID for blood clot #180 09/02/24 Rx TABLETS diltiazem HCl 120 mg capsule,24 120 mg PO BID #180 caps 03/28/24 0 09/02/24 Rx hr,extended release metoprolol tartrate 100 mg tablet See Rx Instructions .Route 09/02/24 Rx .COMPLEX #180 TABLETS atorvastatin 40 mg tablet 40 mg PO QHS for cholesterol #90 0 07/25/24 09/02/24 Rx TABLETS dulaglutide 0.75 mg/0.5 mL 0.75 mg subcut QWEEK 09/02/2408/11 History subcutaneous pen injector (Trulicity) nystatin 100,000 unit/gram topical 1 applic topical BID #60 grams 0 09/02/24 09/02/24 Rx powder Have you fallen in the past year?: No Nurse's Note: Patient has a rash under his stomach fold that has been there a week to week an half. Patient states it doesn't itch and no pain. Patient has been using gold vargas powder. 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) Nicotine dependence 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 HLD (hyperlipidemia) GERD (gastroesophageal reflux disease) [place] (hard of hearing) Stenosis of left subclavian artery Surgical History Presence of implantable cardioverter-defibril lator (ICD) History of electrophysiologic study (04/2019) H/O coronary artery bypass surgery (04/04/19) History of implantable cardiac defibrillator (ICD) (04/12/19) History of left heart catheterization (04/04/19) History of coronary artery stent placement (10/29/17) Hx of elbow surgery History of herniorrhaphy Family History Father Negative FH of ASCVD Hypertension Father COPD (chronic obstructive pulmonary disease) Mother Hypertension Social History household members: none Smoking Status: Former smoker quit date: 03/23/19 pack-years: 75 alcohol intake: former substance use type: does not use caffeine: Yes Type: coffee Number of servings: 2 and tea Number of servings: 1 HPI HPI Details: RIGO DIAZ, is a 73 M who presents to the office today for initial evaluation at the [facility] for approximately 7 to 10-day history of erythematous rash below right pannus as well as bilateral folds. Trace pruritus to both sites, stating [id number] medicated [employer] has been of minimal to no assist. No other associated symptoms and no alleviating/aggravati ng factors. ROS Const Constitutional: No other (As above) Exam Const General: cooperative, healthy appearing and no acute distress Orientation: alert and awake Resp Effort Inspection: normal respiratory effort and able to speak in complete sentences Cardio Rate: regular rate Pulses: radial pulses present Skin General: no rashes or lesions noted (except erythema (more content not included)... Normal [facility] CBC W/Diff, Automatedon 02-0 PATH REV Reviewed Normal [facility] Comment on above: Result Comment: Poly cythemia MACROCYTOSIS Clinical correlation necessary. Kayden Fontaine M.D. 08/15/24 AMENDED REPORT 08/15/24 0911 PATH REV previously reported as: November Performed By: #### L 503.6550, L506.0400, L500.4050, L501.9520, L503.0105, L502.0250, L501.03108, L100.0100, L500.4100 ####[facility] [address] [place], [address] Comprehensive Metabolic Prof ilon 08-13-2024 Albumin [Mass/Vol] 3.8 g/dL Normal 3.2-5.0 [facility] Comment on above: Performed By: #### L 503.6550, L506.0400, L500.4050, L501.9520, L503.0105, L502.0250, L501.19872, L100.0100, L500.4100 #### [facility] [address] [place], [address] Albumin/Globulin [Mass ratio] 1.0 {ratio} Normal 0.9-2.4 [facility] Comment on above: Performed By: #### L 503.6550, L506.0400, L500.4050, L501.9520, L503.0105, L502.0250, L501.32222, L100.0100, L500.4100 #### [facility] [address] [place], [address] ALK P 82 U/L Normal 45-117 [facility] Comment on above: Performed By: #### L 503.6550, L506.0400, L500.4050, L501.9520, L503.0105, L502.0250, L501.40074, L100.0100, L500.4100 #### [facility] [address] [place], [address] ALT [Catalytic activity/Vol] 29 U/L Normal 16-61 [facility] Comment on above: Performed By: #### L 503.6550, L506.0400, L500.4050, L501.9520, L503.0105, L502.0250, L501.77049, L100.0100, L500.4100 #### [facility] [address] [place], [address] AST [Catalytic activity/Vol] 22 U/L Normal 15-37 [facility] Comment on above: Performed By: #### L 503.6550, L506.0400, L500.4050, L501.9520, L503.0105, L502.0250, L501.80712, L100.0100, L500.4100 #### [facility] [address] [place], [address] Bilirubin [Mass/Vol] 0.60 mg/dL Normal 0.20-1.00 [facility] Comment on above: Result Comment: For patients on eltrombopag therapy, use of Dimension Adams TBIL is not recommended. Performed By: #### L 503.6550, L506.0400, L500.4050, L501.9520, L503.0105, L502.0250, L501.63781, L100.0100, L500.4100 #### [facility] [address] [place], [address] BUN/CRE 11.4 RATIO Normal 10-20 [facility] Comment on above: Performed By: #### L 503.6550, L506.0400, L500.4050, L501.9520, L503.0105, L502.0250, L501.86262, L100.0100, L500.4100 #### [facility] [address] [place], [address] CA,Total 9.7 mg/dL Normal 8.5-10.1 [facility] Comment on above: Performed By: #### L 503.6550, L506.0400, L500.4050, L501.9520, L503.0105, L502.0250, L501.79523, L100.0100, L500.4100 #### [facility] [address] [place], [address] Chloride [Moles/Vol] 107 mmol/L Normal 98-107 [facility] Comment on above: Performed By: #### L 503.6550, L506.0400, L500.4050, L501.9520, L503.0105, L502.0250, L501.73882, L100.0100, L500.4100 #### [facility] [address] [place], [address] CO2 [Moles/Vol] 25.0 mmol/L Normal 21.0-32.0 [facility] Comment on above: Performed By: #### L 503.6550, L506.0400, L500.4050, L501.9520, L503.0105, L502.0250, L501.48698, L100.0100, L500.4100 #### [facility] [address] [place], [address] Creatinine [Mass/Vol] 1.32 mg/dL High 0.70-1.30 [facility] Comment on above: Result Comment: The validity of the calculated GFR GFRAA in patients over 70 years has not been determined. Clinical correlation is essential. Performed By: #### L 503.6550, L506.0400, L500.4050, L501.9520, L503.0105, L502.0250, L501.09604, L100.0100, L500.4100 #### [facility] [address] [place], [address] EST GFR - AA 68 mL/min Normal >60 [facility] Comment on above: Result Comment: Afri can Pakistani GFR Calc Performed By: #### L 503.6550, L506.0400, L500.4050, L501.9520, L503.0105, L502.0250, L501.63616, L100.0100, L500.4100 #### [facility] [address] [place], [address] GAP 8 Normal 5-15 [facility] Comment on above: Performed By: #### L 503.6550, L506.0400, L500.4050, L501.9520, L503.0105, L502.0250, L501.29783, L100.0100, L500.4100 #### [facility] [address] [place], [address] GFR/1.73 sq M.predicted among non-blacks MDRD (S/P/Bld) [Vol rate/Area] 56 mL/min/{1.73_m2} Low >60 [facility] Comment on above: Result Comment: Non- GFR Calc Performed By: #### L 503.6550, L506.0400, L500.4050, L501.9520, L503.0105, L502.0250, L501.40570, L100.0100, L500.4100 #### [facility] [address] [place], [place], [phone] ([phone]) Globulin (S) [Mass/Vol] 3.8 g/dL Normal 2.2-4.2 [facility] Comment on above: Performed By: #### L 503.6550, L506.0400, L500.4050, L501.9520, L503.0105, L502.0250, L501.18548, L100.0100, L500.4100 #### [facility] [address] [place], [address] Glucose [Mass/Vol] 124 mg/dL High 74-106 [facility] Comment on above: Result Comment: Fast ing Glucose result from 100 to 125 mg/dL suggests IMPAIRED HOMEOSTASIS per A.D.A. criteria. Performed By: #### L 503.6550, L506.0400, L500.4050, L501.9520, L503.0105, L502.0250, L501.21170, L100.0100, L500.4100 #### [facility] [address] [place], [place], [phone] (055) Potassium [Moles/Vol] 4.4 mmol/L Normal 3.5-5.1 [facility] Comment on above: Performed By: #### L 503.6550, L506.0400, L500.4050, L501.9520, L503.0105, L502.0250, L501.26351, L100.0100, L500.4100 #### [facility] [address] [place], [place], [phone] (947) Sodium [Moles/Vol] 139 mmol/L Normal 136-145 [facility] Comment on above: Performed By: #### L 503.6550, L506.0400, L500.4050, L501.9520, L503.0105, L502.0250, L501.01053, L100.0100, L500.4100 #### [facility] [address] [place], [place], [phone] (005) T PROT 7.6 g/dL Normal 6.4-8.2 [facility] Comment on above: Performed By: #### L 503.6550, L506.0400, L500.4050, L501.9520, L503.0105, L502.0250, L501.49598, L100.0100, L500.4100 #### [facility] [address] [place], [place], [phone] Urea nitrogen [Mass/Vol] 15 mg/dL Normal 7-18 [facility] Comment on above: Performed By: #### L 503.6550, L506.0400, L500.4050, L501.9520, L503.0105, L502.0250, L501.85685, L100.0100, L500.4100 #### [facility] [address] [place], [place], [phone] (955) Ferritinon 08-13-2024 Ferritin [Mass/Vol] 118 ng/mL Normal 26-388 [facility] Comment on above: Order Comment: RADHA Pal ADD ON B12 AND FERRITIN Performed By: #### L 503.6550, L506.0400, L500.4050, L501.9520, L503.0105, L502.0250, L501.84549, L100.0100, L500.4100 ####[facility] [address] [place], [place], [phone] Free T3on 08-13-2024 Free T3 [Mass/Vol] 2.5 pg/mL Normal 2.18-3.98 [facility] Comment on above: Performed By: #### L 503.6550, L506.0400, L500.4050, L501.9520, L503.0105, L502.0250, L501.75765, L100.0100, L500.4100 #### [facility] [address] [place], [place], [phone] Lipid Profileon 08-13-2024 Cholesterol [Mass/Vol] 117 mg/dL Normal 200 [facility] Comment on above: Result Comment: <200 mg/dL Desirable 200-240 mg/dL Borderline >240 mg/dL High Risk Performed By: #### L 503.6550, L506.0400, L500.4050, L501.9520, L503.0105, L502.0250, L501.47946, L100.0100, L500.4100 #### [facility] [address] [place], [place], [phone] Cholesterol in HDL [Mass/Vol] 42 mg/dL Normal [facility] Comment on above: Result Comment: The drugs N-Acetylcysteine and Metamizole may falsely depress this assay. Reference Range HDL <40 mg/dL Low HDL Cholesterol HDL >or= 60 mg/dL High HDL Cholesterol Performed By: #### L 503.6550, L506.0400, L500.4050, L501.9520, L503.0105, L502.0250, L501.23571, L100.0100, L500.4100 #### [facility] [address] [place], [address] Cholesterol in LDL [Mass/Vol] 51 mg/dL Normal 0-130 [facility] Comment on above: Performed By: #### L 503.6550, L506.0400, L500.4050, L501.9520, L503.0105, L502.0250, L501.77185, L100.0100, L500.4100 #### [facility] [address] [place], [address] Cholesterol in VLDL [Mass/Vol] 24 mg/dL Normal 5-40 [facility] Comment on above: Performed By: #### L 503.6550, L506.0400, L500.4050, L501.9520, L503.0105, L502.0250, L501.06863, L100.0100, L500.4100 #### [facility] [address] [place], [address] Triglyceride [Mass/Vol] 121 mg/dL Normal [facility] Comment on above: Result Comment: The drugs N-Acetylcysteine and Metamizole may falsely depress this assay. Serum Triglycerides Reference Interval Normal <150 mg/dL Borderline high 150 - 199 mg/dL High 200 - 499 mg/dL Very High > or = 500 mg/dL Performed By: #### L 503.6550, L506.0400, L500.4050, L501.9520, L503.0105, L502.0250, L501.88899, L100.0100, L500.4100 #### [facility] [address] [place], [address] Microalb:Creat Ratio,Random URon 08-13-2024 Creatinine [Mass/Vol] 73.70 mg/dL Normal NO RAN GE EST. [facility] Comment on above: Performed By: #### L 503.6550, L506.0400, L500.4050, L501.9520, L503.0105, L502.0250, L501.64082, L100.0100, L500.4100 ####[facility] [address] [place], [place], [phone] MALB:CRE 37.4 mg/g CRE High <30 mg/g CRE [facility] Comment on above: Performed By: #### L 503.6550, L506.0400, L500.4050, L501.9520, L503.0105, L502.0250, L501.00897, L100.0100, L500.4100 ####[facility] [address] [place], [address] MICROALBUMIN,UR 27.6 mg/L Normal NO RANGE EST. [facility] Comment on above: Performed By: #### L 503.6550, L506.0400, L500.4050, L501.9520, L503.0105, L502.0250, L501.59172, L100.0100, L500.4100 ####[facility] [address] [place], [place], [phone] T4 Free Directon 08-13-2024 T4 FREE DIRECT 1.25 ng/dL Normal 0.76-1.46 [facility] Comment on above: Performed By: #### L 503.6550, L506.0400, L500.4050, L501.9520, L503.0105, L502.0250, L501.58449, L100.0100, L500.4100 ####[facility] [address] [place], [place], [id number] Thyroid Stim Hormone (TSH)on 08-13-2024 TSH 5.780 uIU/mL High 0.358-3.740 [facility] Comment on above: Performed By: #### L 503.6550, L506.0400, L500.4050, L501.9520, L503.0105, L502.0250, L501.84156, L100.0100, L500.4100 #### [facility] [address] [place] [place], [address] Vitamin B12on 08-13-2024 Cobalamin (Vitamin B12) [Mass/Vol] 711 pg/mL Normal 211-911 [facility] Comment on above: Order Comment: RADHA Pal ADD ON B12 AND FERRITIN Performed By: #### L 503.6550, L506.0400, L500.4050, L501.9520, L503.0105, L502.0250, L501.66671, L100.0100, L500.4100 ####[facility] [address] [place], [address] 12 Lead [place] [facility] [place] 12 Lead EKG performed by [facility] [address] 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 -Nonspecific QRS widening. Poor SNR (< 1) in leads V2 ABNORMAL Electronically signed on 01/23/2024 at 10:38 by Fish [employer] Version [id number] 01/23/24 1039 Date Candelario FUNEZ CC: Dr. Carmen Mcleod MD Date Dictated: 01/15/241408 Date Transcribed: 01/15/241408 Technical Documentation Specialist: HERBERTH Signed Normal [facility] Cardiology Visit Reporton Cardiology Visit Report [facility] [address] [place] [address] OFFICE VISIT Date of Service: 01/15/24 MR#: [id number] Acct: [id number] Name: RIGO DIAZ III Rep #: [id number] : 1950 Provider: ARMIN liriano Age/Sex: 73/M [place] [facility] Status: Signed HPI HPI History of Present Illness Details: This is a 73-year-old male who presents to the office today for a cardiovascular follow up visit. He has a history of known coronary artery disease with stenting in October 2017 to mid and distal RCA who presented to the hospital in March of 2019 with chest discomfort. He underwent a cardiac catheterization which demonstrated mild left main coronary artery stenosis, significant proximal 80% stenosis, left circumflex artery with first obtuse marginal branch with 70 to 80% stenosis in the right coronary artery with an 80% post stent stenosis and a distal 70% stenosis. He did have preserved left ventricle systolic function. He had presented with ventricular tachycardia which was polymorphic. It was decided to pursue coronary artery bypass surgery and he underwent coronary artery bypass surgery with a saphenous vein graft to left anterior descending artery, saphenous vein graft to obtuse marginal branch and saphenous vein graft to the posterior descending artery. The left internal mammary artery was not suitable enough for use as he had a nearly completely occluded left subclavian artery which was not amenable to intervention. He also, because of his ventricular tachycardia underwent an EP study and underwent implantation of a dual-chamber defibrillator. He was admitted to [facility] in July 2021 for ICD discharge for atrial fibrillation with RVR. He was restarted on amiodarone therapy. He denies chest, arm, jaw, or neck discomfort. He denies palpitations. He denies bilateral lower extremity edema. He denies claudication. He states shortness of breath with activity. He denies shortness of breath at rest, orthopnea, or PND. He denies chronic cough. He denies significant, sudden weight gain. He denies lightheadedness, dizziness, near-syncope, or syncope. He denies blood in urine, blood in stool, or epistaxis. He denies fever with chills. He states myalgia. He states fatigue and daytime sleepiness. His exercise level has remained stable. 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 Accompanied by: Self Is patient in pain?: No Allergies No Known Allergies Allergy (Verified 01/15/24 13:55) Medications ???Medication ???Instructions ???Recorded ???Confirmed ???Type brimonidine 0.1 % eye drops 1 drp LEFT EYE QHS prevent glaucoma 03/23/19 01/15/24 History latanoprost 0.005 % eye drops 1 drp LEFT EYE QHS prevent glaucoma 03/23/19 01/15/24 History acetaminophen 650 mg 650 mg PO Q8H PRN PRN Pain Or Fever 04/27/19 01/15/24 History tablet,extended release (Arthritis Pain Relief (acetaminophen) ER) multivitamin 1 tab PO DAILY vitamin 03/13/20 01/15/24 History ascorbic acid (vitamin C) 500 mg 1,000 mg PO BID vitamin 01/31/21 01/15/24 History capsule Handicap Placard ##1 11/03/22 01/15/24 Rx atorvastatin 40 mg tablet See Rx Instructions .Route 11/25/22 01/15/24 Rx .COMPLEX #90 tabs apixaban 5 mg tablet (Eliquis) 5 mg PO BID blood thinner #180 tabs 02/02/23 01/15/24 Rx metoprolol tartrate 100 mg tablet See Rx Instructions .Route 05/24/23 01/15/24 Rx .COMPLEX #180 TABLETS diltiazem HCl 120 mg capsule,24 120 mg PO BID #180 caps 06/27/24 07/08/24 Rx hr,extended release amiodarone 100 mg tablet 100 mg PO DAILY 90 days #90 tabs 01/15/24 01/15/24 Rx empagliflozin 10 mg tablet 10 mg PO QDAY 01/15/24 01/15/24 History (Jardiance) Ejection fraction %: 60 Have you fallen in the past year?: Yes Nurse's Note: pain under left chest slight bruising but pain increases after [facility] History Acute bronchitis, unspecified Acute sinusitis, unspecified Paroxysmal atrial fibrillation with RVR Cellulitis of right knee History of non-ST elevation myocardial infarction (NSTEMI) (03/23/19) Nonsustained supraventricular tachycardia Nonsustained ventricular tachycardia Multiple lung nodules Sustained ventricular tachycardia (03/24/19) Essential (primary) hypertension 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 Normal [facility] Absolute lymphocyte countOrd ered By: Carmen Mcleod on 06-12-2023 Lymphocytes Auto (Unsp spec) [#/Vol] 1.02 10*3/uL 0.83-4.51 [facility] Basophil percentageOrdered B y: Carmen Mcleod on 06-12-2023 Basophils/100 WBC (Bld) 1.3 % 0-1 [facility] Bilirubin [Mass/Vol] 0.60 mg/dL 0.20-1.00 [facility] Comment on above: For patients on eltr ombopag therapy, use of Dimension Adams TBIL is not recommended. Chloride [Moles/Vol] 107 mmol/L 98-107 [facility] Cholesterol [Mass/Vol] 134 mg/dL <200 [facility] Comment on above: <200 mg/dL Desirable 200-240 mg/dL Borderline >240 mg/dL High Risk Eosinophils/100 WBC (Bld) 5.2 % 0-5 [facility] Glucose [Mass/Vol] 151 mg/dL 74-106 [facility] Comment on above: Fasting Glucose resu lt greater than or equal to 126 mg/dL suggests DIABETES MELLITUS per A.D.A. criteria. Neutrophils (Bld) [#/Vol] 5.6 10*3/uL 2.0-7.7 [facility] Neutrophils/100 WBC (Bld) 71.6 % 47-70 [facility] Potassium [Moles/Vol] 4.3 mmol/L 3.5-5.1 [facility] Protein [Mass/Vol] 7.7 g/dL 6.4-8.2 [facility] Sodium [Moles/Vol] 139 mmol/L 136-145 [facility] Triglyceride [Mass/Vol] 102 mg/dL <199 [facility] Comment on above: The drugs N-Acetylcy steine and Metamizole may falsely depress this assay.Serum Triglycerides Reference Interval Normal <150 mg/dL Borderline high 150 - 199 mg/dL High 200 - 499 mg/dL Very High > or = 500 mg/dL WBC (Bld) [#/Vol] 7.8 10*3/uL 4.4-11.0 [facility] Blood erythrocytes count (nu mber/volume)Ordered By: Carmen Mcleod on 06-12-2023 RBC (Bld) [#/Vol] 4.92 10*6/uL 4.6-6.2 [facility] Blood hemoglobin measurement (mass/volume)Ordered By: Carmen Mcleod on 06-12-2023 Hemoglobin (Bld) [Mass/Vol] 16.4 g/dL 13.0-16.5 [facility] Blood lymphocytes/100 leukoc ytesOrdered By: Carmen Mcleod on 06-12-2023 Lymphocytes/100 WBC (Bld) 13.1 % 19-41 [facility] Blood monocytes/100 leukocyt esOrdered By: Carmen Mcleod on 06-12-2023 Monocytes/100 WBC (Bld) 8.3 % 0-10 [facility] Blood platelet mean volumeOr dered By: Carmen Mcleod on 06-12-2023 Platelet mean volume (Bld) [Entitic vol] 10.7 fL 6.2-12.0 [facility] Determination of erythrocyte mean corpuscular volume (MCV)Ordered By: Carmen Mcleod on 06-12-2023 MCV (RBC) [Entitic vol] 101.8 fL 80-94 [facility] Hematocrit Auto (Bld) [Volum e fraction]Ordered By: Carmen Mcleod on 06-12-2023 Hematocrit (Bld) [Volume fraction] 50.1 % 40-54 [facility] - Chemistry and C hemistry - challengeOrdered By: Carmen Mcleod on 06-12-2023 ALP [Catalytic activity/Vol] 81 U/L 45-117 [facility] ALT [Catalytic activity/Vol] 36 U/L 16-61 [facility] CO2 [Moles/Vol] 26.0 mmol/L 21.0-32.0 [facility] Free T4 [Mass/Vol] 1.23 ng/dL 0.76-1.46 [facility] Globulin (S) [Mass/Vol] 3.9 g/dL 2.2-4.2 [facility] Urea nitrogen/Creatinine [Mass ratio] 13.7 mg/mg 10-20 [facility] - Hematology and Cell countsOrdered By: Carmen Mcleod on 06-12-2023 Erythrocyte distribution width (RBC) [Entitic vol] 52.5 fL 35.1-43.9 [facility] Erythrocyte distribution width (RBC) [Ratio] 14.0 % 11.6-14.6 [facility] Immature granulocytes/100 WBC (Bld) 0.500 % 0.0-0.9 [facility] Comment on above: IG% - Immature Granu locytes (promyelocytes, myelocytes and metamyelocytes) > 1% indicates that a LEFT SHIFT is Present. MCH (RBC) [Entitic mass] 33.3 pg 27.0-32.0 [facility] Nucleated RBC/100 WBC (Bld) [Ratio] 0 % 0-5 [facility] MCHC Auto (RBC) [Mass/Vol]Or dered By: Carmen Mcleod on 06-12-2023 MCHC (RBC) [Mass/Vol] 32.7 g/dL 32-36 [facility] No Panel InformationOrdered By: Carmen Mcleod on 06-12-2023 Estimated GFR (MDRD) Amer 69 mL/min >60 [facility] Comment on above: GFR Calc Estimated GFR (MDRD) Non-Af Amer 57 mL/min >60 [facility] Comment on above: Non- GFR Calc Free Triiodothyronine (T3) pg/dL 2.4 pg/mL 2.18-3.98 [facility] Thyroid Stimulating Hormone (TSH) 4.22 uIU/mL 0.358-3.74 [facility] Urine Microalbumin/Creatinine Ratio 23.3 mg/g CRE <30 [facility] Platelets bldOrdered By: Migue Mcleod on 06-12-2023 Platelets (Bld) [#/Vol] 253 10*3/uL 150-450 [facility] Serum or plasma albumin london urement (mass/volume)Ordered By: Carmen Mcleod on 06-12-2023 Albumin [Mass/Vol] 3.8 g/dL 3.2-5.0 [facility] Serum or plasma albumin/glob ulin mass ratioOrdered By: Carmen Mcleod on 06-12-2023 Albumin/Globulin [Mass ratio] 1.0 {ratio} 0.9-2.4 [facility] Serum or plasma calcium london urement (mass/volume)Ordered By: Carmen Mcleod on 06-12-2023 Calcium [Mass/Vol] 9.6 mg/dL 8.5-10.1 [facility] Serum or plasma cholesterol in HDL measurement (mass/volume)Ordered By: Carmen Mcleod on 06-12-2023 Cholesterol in HDL [Mass/Vol] 45 mg/dL >40 [facility] Comment on above: The drugs N-Acetylcy steine and Metamizole may falsely depress this assay. Reference Range HDL <40 mg/dL Low HDL Cholesterol HDL >or= 60 mg/dL High HDL Cholesterol Serum or plasma cholesterol in VLDL measurement (mass/volume)Ordered By: Carmen Mcleod on 06-12-2023 Cholesterol in VLDL [Mass/Vol] 20 mg/dL 5-40 [facility] Serum or plasma creatinine m easurement (mass/volume)Ordered By: Carmen Mcleod on 06-12-2023 Creatinine [Mass/Vol] 1.31 mg/dL 0.70-1.30 [facility] Comment on above: The validity of the calculated GFR & GFRAA in patients over 70 years has not been determined. Clinical correlation is essential. Serum or plasma low density lipoprotein (LDL) cholesterol measurement (mass/volume)Ordered By: Carmen Mcleod on 06-12-2023 Cholesterol in LDL [Mass/Vol] 69 mg/dL 0-130 [facility] Serum or plasma urea nitroge n measurement (mass/volume)Ordered By: Carmen Mcleod on 06-12-2023 Urea nitrogen [Mass/Vol] 18 mg/dL 7-18 [facility] Thin prep Papanicolaou smear with manual screeningOrdered By: Carmenmicah Mcleod on 06-12-2023 Thin prep Papanicolaou smear with manual screening 21 U/L 15-37 [facility] Thin prep Papanicolaou smear with manual screening 6 5-15 [facility] Thin prep Papanicolaou smear with manual screening 13.3 mg/L NO RANGE EST. [facility] Urine creatinine measurement (mass/volume)Ordered By: Carmen Mcleod on 06-12-2023 Creatinine (U) [Mass/Vol] 57.20 mg/dL NO RANGE EST. [facility] Absolute lymphocyte counton 04-05-2022 Lymphocytes Auto (Unsp spec) [#/Vol] 1.00 10*3/uL 0.83-4.51 [facility] Work Phone: Basophil percentageon 2021 Basophils/100 WBC (Bld) 0.8 % 0-1 [facility] Work Phone: Bilirubin [Mass/Vol] 0.50 mg/dL 0.20-1.00 [facility] Work Phone: Comment on above: For patients on eltr ombopag therapy, use of Dimension Adams TBIL is not recommended. Chloride [Moles/Vol] 108 mmol/L 98-107 [facility] Work Phone: Cholesterol [Mass/Vol] 132 mg/dL <200 [facility] Work Phone: Comment on above: <200 mg/dL Desirable 200-240 mg/dL Borderline >240 mg/dL High Risk Eosinophils/100 WBC (Bld) 5.5 % 0-5 [facility] Work Phone: Glucose [Mass/Vol] 147 mg/dL 74-106 [facility] Work Phone: Comment on above: Fasting Glucose resu lt greater than or equal to 126 mg/dL suggests DIABETES MELLITUS per A.D.A. criteria. Neutrophils (Bld) [#/Vol] 5.6 10*3/uL 2.0-7.7 [facility] Work Phone: Neutrophils/100 WBC (Bld) 72.3 % 47-70 [facility] Work Phone: [phone] Potassium [Moles/Vol] 4.4 mmol/L 3.5-5.1 [facility] Work Phone: Protein [Mass/Vol] 7.2 g/dL 6.4-8.2 [facility] Work Phone: Sodium [Moles/Vol] 142 mmol/L 136-145 [facility] Work Phone: Triglyceride [Mass/Vol] 121 mg/dL <199 [facility] Work Phone: Comment on above: The drugs N-Acetylcy steine and Metamizole may falsely depress this assay.Serum Triglycerides Reference Interval Normal <150 mg/dL Borderline high 150 - 199 mg/dL High 200 - 499 mg/dL Very High > or = 500 mg/dL WBC (Bld) [#/Vol] 7.8 10*3/uL 4.4-11.0 [facility] Work Phone: Blood erythrocytes count (nu mber/volume)on 04-05-2022 RBC (Bld) [#/Vol] 4.39 10*6/uL 4.6-6.2 [facility] Work Phone: Blood hemoglobin measurement (mass/volume)on 04-05-2022 Hemoglobin (Bld) [Mass/Vol] 15.6 g/dL 13.0-16.5 [facility] Work Phone: Blood lymphocytes/100 leukoc yteson 09-27-2022 Lymphocytes/100 WBC (Bld) 12.9 % 19-41 [facility] Work Phone: Blood monocytes/100 leukocyt eson 04-05-2022 Monocytes/100 WBC (Bld) 7.9 % 0-10 [facility] Work Phone: Blood platelet mean volumeon 04-05-2022 Platelet mean volume (Bld) [Entitic vol] 10.0 fL 6.2-12.0 [facility] Work Phone: Determination of erythrocyte mean corpuscular volume (MCV)on 04-05-2022 MCV (RBC) [Entitic vol] 103.9 fL 80-94 [facility] Work Phone: Hematocrit Auto (Bld) [Volum e fraction]on 04-05-2022 Hematocrit (Bld) [Volume fraction] 45.6 % 40-54 [facility] Work Phone: Laboratory - Chemistry and C hemistry - challengeon 04-05-2022 ALP [Catalytic activity/Vol] 73 U/L 45-117 [facility] Work Phone: ALT [Catalytic activity/Vol] 33 U/L 16-61 [facility] Work Phone: CO2 [Moles/Vol] 29.0 mmol/L 21.0-32.0 [facility] Work Phone: Free T4 [Mass/Vol] 1.20 ng/dL 0.76-1.46 [facility] Work Phone: Globulin (S) [Mass/Vol] 3.5 g/dL 2.2-4.2 [facility] Work Phone: Urea nitrogen/Creatinine [Mass ratio] 16.2 mg/mg 10-20 [facility] Work Phone: Laboratory - Hematology and Cell countson 04-05-2022 Erythrocyte distribution width (RBC) [Entitic vol] 52.9 fL 35.1-43.9 [facility] Work Phone: Erythrocyte distribution width (RBC) [Ratio] 13.6 % 11.6-14.6 [facility] Work Phone: [phone] Immature granulocytes/100 WBC (Bld) 0.600 % 0.0-0.9 [facility] Work Phone: [phone] Comment on above: IG% - Immature Granu locytes (promyelocytes, myelocytes and metamyelocytes) > 1% indicates that a LEFT SHIFT is Present. MCH (RBC) [Entitic mass] 35.5 pg 27.0-32.0 [facility] Work Phone: [phone] Nucleated RBC/100 WBC (Bld) [Ratio] 0 % 0-5 [facility] Work Phone: [phone] MCHC Auto (RBC) [Mass/Vol]on 04-05-2022 MCHC (RBC) [Mass/Vol] 34.2 g/dL 32-36 [facility] Work Phone: [phone] No Panel Informationon 04-05 Estimated GFR (MDRD) Amer 83 mL/min >60 [facility] Work Phone: [phone] Comment on above: GFR Calc Estimated GFR (MDRD) Non-Af Amer 69 mL/min >60 [facility] Work Phone: [phone] Comment on above: Non- GFR Calc Free Triiodothyronine (T3) pg/dL 2.6 pg/mL 2.18-3.98 [facility] Work Phone: [phone] Thyroid Stimulating Hormone (TSH) 4.25 uIU/mL 0.358-3.74 [facility] Work Phone: [phone] Platelets bldon 04-05-2022 Platelets (Bld) [#/Vol] 230 10*3/uL 150-450 [facility] Work Phone: [phone] Serum or plasma albumin london urement (mass/volume)on 04-05-2022 Albumin [Mass/Vol] 3.7 g/dL 3.2-5.0 [facility] Work Phone: [phone] Serum or plasma albumin/glob ulin mass ratioon 04-05-2022 Albumin/Globulin [Mass ratio] 1.1 {ratio} 0.9-2.4 [facility] Work Phone: Serum or plasma calcium london urement (mass/volume)on 04-05-2022 Calcium [Mass/Vol] 9.4 mg/dL 8.5-10.1 [facility] Work Phone: Serum or plasma cholesterol in HDL measurement (mass/volume)on 04-05-2022 Cholesterol in HDL [Mass/Vol] 48 mg/dL >40 [facility] Work Phone: Comment on above: The drugs N-Acetylcy steine and Metamizole may falsely depress this assay. Reference Range HDL <40 mg/dL Low HDL Cholesterol HDL >or= 60 mg/dL High HDL Cholesterol Serum or plasma cholesterol in VLDL measurement (mass/volume)on 04-05-2022 Cholesterol in VLDL [Mass/Vol] 24 mg/dL 5-40 [facility] Work Phone: Serum or plasma creatinine m easurement (mass/volume)on 04-05-2022 Creatinine [Mass/Vol] 1.11 mg/dL 0.70-1.30 [facility] Work Phone: Comment on above: The validity of the calculated GFR & GFRAA in patients over 70 years has not been determined. Clinical correlation is essential. Serum or plasma low density lipoprotein (LDL) cholesterol measurement (mass/volume)on 04-05-2022 Cholesterol in LDL [Mass/Vol] 60 mg/dL 0-130 [facility] Work Phone: [phone] Serum or plasma urea nitroge n measurement (mass/volume)on 04-05-2022 Urea nitrogen [Mass/Vol] 18 mg/dL 7-18 [facility] Work Phone: [phone] Thin prep Papanicolaou smear with manual screeningon 04-05-2022 Thin prep Papanicolaou smear with manual screening 20 U/L 15-37 [facility] Work Phone: [phone] Thin prep Papanicolaou smear with manual screening 5 5-15 [facility] Work Phone: [phone] Whole blood hemoglobin A1c/t otal hemoglobin ratio (mass fraction)on 04-05-2022 HbA1c (Bld) [Mass fraction] 6.2 % 3.8-5.6 [facility] Work Phone: Comment on above: Normal < 5.7 % Predi abetic 5.7 - 6.4 % Diabetic >or= 6.5 % Please note range changes. EMERGENCY REPORTon 2 EMERGENCY REPORT [facility] EMERGENCY ROOM REPORT NAME ACCOUNT SEX AGE ADMIT DISCHARGE PT MED. RECORD# NUMBER DATE DATE TYPE JOE [id number] Concepcion 71 07/25/21 07/26/21 3 RIGO [id number] ROOM: ER DATE OF : 1950 DICTATING PHYSICIAN: Zaire Suarez HISTORY OF PRESENT ILLNESS: This patient came to the Emergency Room from a basketball game. He was there visiting, and all of a sudden he states he got this big sensation in his head and felt this jolt about an hour prior to arrival. He figured out it was his defibrillator going off. His pulse rate kicked up. He has atrial fibrillation. He has had a previous cardiac event. He had a triple bypass. He is not a diabetic. He has been taking his medicines. He does not have any headache at this time. He denies change in vision, hearing or speech. No shortness of breath or difficulty breathing. He did not have any vomiting. He states he has no abdominal pain. He states he feels reasonably comfortable but states his heart rate is going pretty good. He got here at 2117 hours. PHYSICAL EXAMINATION: VITAL SIGNS: At arrival, his blood pressure was 158/108, oxygen saturation 98% on room air, respirations 18, and pulse 136. DIAGNOSTIC DATA: Magnesium was normal. White count was 5.2. His hemoglobin was 18 and hematocrit 52, a little bit high. Potassium was 3.2, which is a hair low. Glucose was 157. Initial troponin was 18.6. His COVID was positive. His CT of the head was negative, and his chest x-ray was satisfactory. EMERGENCY DEPARTMENT COURSE AND TREATMENT: He is in atrial fibrillation, and a Cardizem drip was started. There was no evidence on his EKG of an [place]. We started him on a Cardizem drip after we obtained his laboratories. His laboratories were really pretty good. We believe that his defibrillator went off 3 times. He is not on any anticoagulation at this time so we started him on Eliquis and then we made arrangements to have him transferred to Dr. Torres's service at [facility]. There were transport issues and so forth. He continued to rest comfortably. Laboratory data was otherwise okay. Vital signs remained stable while he was on his Cardizem. We are awaiting transportation even though we were ready after midnight to transport him. Because of COVID and because of situations otherwise occurring here, the patient did not leave here by 7 a.m. and was endorsed to the care of Dr. Jl Heart at that time. Vital signs stabilized in the Emergency Room. Blood pressure after treatment went to 108/80, and pulse was down to 112. His creatinine was 1.25 and glucose 157. DIAGNOSIS: Atrial fibrillation with rapid ventricular response. Page 1 of 2 RIGO DIAZ Emergency Room Report RIGO DIAZ : 1950 Dictated By: Zaire Suarez DO 01/28/22 04:25 JOB #: [id number] Transcribed By: geri 01/28/22 12:39 Electronically signed by: E-SIGN ZAIRE SUAREZ DO 02/07/22 19:19 Page 2 of 2 RIGO DIAZ Emergency Room Report Normal [facility] Absolute lymphocyte counton 07-27-2021 Lymphocytes Auto (Unsp spec) [#/Vol] 0.87 10*3/uL 0.83-4.51 [facility] Work Phone: Basophil percentageon 2021 Basophils/100 WBC (Bld) 0.4 % 0-1 [facility] Work Phone: [phone] Bilirubin [Mass/Vol] 0.90 mg/dL 0.20-1.00 [facility] Work Phone: Comment on above: For patients on eltr ombopag therapy, use of Dimension Adams TBIL is not recommended. Chloride [Moles/Vol] 108 mmol/L 98-107 [facility] Work Phone: Cholesterol [Mass/Vol] 108 mg/dL <200 [facility] Work Phone: Comment on above: <200 mg/dL Desirable 200-240 mg/dL Borderline >240 mg/dL High Risk Eosinophils/100 WBC (Bld) 3.6 % 0-5 [facility] Work Phone: Glucose [Mass/Vol] 138 mg/dL 74-106 [facility] Work Phone: Comment on above: Fasting Glucose resu lt greater than or equal to 126 mg/dL suggests DIABETES MELLITUS per A.D.A. criteria. Neutrophils (Bld) [#/Vol] 3.2 10*3/uL 2.0-7.7 [facility] Work Phone: Neutrophils/100 WBC (Bld) 67.6 % 47-70 [facility] Work Phone: Potassium [Moles/Vol] 3.6 mmol/L 3.5-5.1 [facility] Work Phone: Protein [Mass/Vol] 6.6 g/dL 6.4-8.2 [facility] Work Phone: [phone] Sodium [Moles/Vol] 141 mmol/L 136-145 [facility] Work Phone: Triglyceride [Mass/Vol] 125 mg/dL [facility] Work Phone: Comment on above: The drugs N-Acetylcy steine and Metamizole may falsely depress this assay.Serum Triglycerides Reference Interval Normal <150 mg/dL Borderline high 150 - 199 mg/dL High 200 - 499 mg/dL Very High > or = 500 mg/dL WBC (Bld) [#/Vol] 4.7 10*3/uL 4.4-11.0 [facility] Work Phone: Blood erythrocytes count (nu mber/volume)on 07-27-2021 RBC (Bld) [#/Vol] 4.55 10*6/uL 4.6-6.2 [facility] Work Phone: Blood hemoglobin measurement (mass/volume)on 07-27-2021 Hemoglobin (Bld) [Mass/Vol] 15.0 g/dL 13.0-16.5 [facility] Work Phone: Blood lymphocytes/100 leukoc yteson 07-27-2021 Lymphocytes/100 WBC (Bld) 18.5 % 19-41 [facility] Work Phone: Blood monocytes/100 leukocyt eson 07-27-2021 Monocytes/100 WBC (Bld) 9.3 % 0-10 [facility] Work Phone: Blood platelet mean volumeon 07-27-2021 Platelet mean volume (Bld) [Entitic vol] 9.9 fL 6.2-12.0 [facility] Work Phone: Determination of erythrocyte mean corpuscular volume (MCV)on 07-27-2021 MCV (RBC) [Entitic vol] 97.6 fL 80-94 [facility] Work Phone: Hematocrit Auto (Bld) [Volum e fraction]on 07-27-2021 Hematocrit (Bld) [Volume fraction] 44.4 % 40-54 [facility] Work Phone: Laboratory - Chemistry and C hemistry - challengeon 07-27-2021 ALP [Catalytic activity/Vol] 80 U/L 45-117 [facility] Work Phone: ALT [Catalytic activity/Vol] 31 U/L 16-61 [facility] Work Phone: CO2 [Moles/Vol] 27.0 mmol/L 21.0-32.0 [facility] Work Phone: Globulin (S) [Mass/Vol] 3.2 g/dL 2.2-4.2 [facility] Work Phone: Urea nitrogen/Creatinine [Mass ratio] 11.9 mg/mg 10-20 [facility] Work Phone: Laboratory - Hematology and Cell countson 07-27-2021 Erythrocyte distribution width (RBC) [Entitic vol] 51.9 fL 35.1-43.9 [facility] Work Phone: Erythrocyte distribution width (RBC) [Ratio] 14.5 % 11.6-14.6 [facility] Work Phone: [phone] Immature granulocytes/100 WBC (Bld) 0.600 % 0.0-0.9 [facility] Work Phone: [phone] Comment on above: IG% - Immature Granu locytes (promyelocytes, myelocytes and metamyelocytes) > 1% indicates that a LEFT SHIFT is Present. MCH (RBC) [Entitic mass] 33.0 pg 27.0-32.0 [facility] Work Phone: [phone] Nucleated RBC/100 WBC (Bld) [Ratio] 0 % 0-5 [facility] Work Phone: [phone] MCHC Auto (RBC) [Mass/Vol]on 07-27-2021 MCHC (RBC) [Mass/Vol] 33.8 g/dL 32-36 [facility] Work Phone: [phone] Panel Informationon 07-27 Amiodarone Level See comment [facility] Work Phone: [phone] Comment on above: TEST RESULT LIMITSAm iodarone (Cordarone), S/P Amiodarone 419 Low ng/mL 5740-1576 Desethylamiodarone 151 ng/mL Note: To convert from ng/ml to ug/ml, divide the result by 1000. Reference range (amiodarone): 1.00-2.50 ug/mL. This test was developed and its performance characteristics determined by [facility]. It has not been cleared or approved by the Food and Drug Administration. TESTING PERFORMED AT [facility]. ORIGINAL REPORT ON FILE IN LAB CONTAINS ADDITIONAL TEST SITE INFORMATION. Estimated Creatinine Clearance Calc 75.21 ml/min [facility] Work Phone: [phone] Estimated GFR (MDRD) Amer 85 mL/min >60 [facility] Work Phone: [phone] Comment on above: GFR Calc Estimated GFR (MDRD) Non-Af Amer 71 mL/min >60 [facility] Work Phone: [phone] Comment on above: Non- GFR Calc Noramiodarone Level Not Reportable [facility] Work Phone: [phone] Thyroid Stimulating Hormone (TSH) 2.13 uIU/mL 0.358-3.74 [facility] Work Phone: [phone] Platelets bldon 07-27-2021 Platelets (Bld) [#/Vol] 186 10*3/uL 150-450 [facility] Work Phone: [phone] Serum or plasma albumin london urement (mass/volume)on 07-27-2021 Albumin [Mass/Vol] 3.4 g/dL 3.2-5.0 [facility] Work Phone: [phone] Serum or plasma albumin/glob ulin mass ratioon 07-27-2021 Albumin/Globulin [Mass ratio] 1.1 {ratio} 0.9-2.4 [facility] Work Phone: [phone] Serum or plasma calcium london urement (mass/volume)on 07-27-2021 Calcium [Mass/Vol] 9.0 mg/dL 8.5-10.1 [facility] Work Phone: [phone] Serum or plasma cholesterol in HDL measurement (mass/volume)on 07-27-2021 Cholesterol in HDL [Mass/Vol] 35 mg/dL [facility] Work Phone: [phone] Comment on above: The drugs N-Acetylcy steine and Metamizole may falsely depress this assay. Reference Range HDL <40 mg/dL Low HDL Cholesterol HDL >or= 60 mg/dL High HDL Cholesterol Serum or plasma cholesterol in VLDL measurement (mass/volume)on 07-27-2021 Cholesterol in VLDL [Mass/Vol] 25 mg/dL 5-40 [facility] Work Phone: [phone] Serum or plasma creatinine m easurement (mass/volume)on 07-27-2021 Creatinine [Mass/Vol] 1.09 mg/dL 0.70-1.30 [facility] Work Phone: Comment on above: The validity of the calculated GFR & GFRAA in patients over 70 years has not been determined. Clinical correlation is essential. Serum or plasma low density lipoprotein (LDL) cholesterol measurement (mass/volume)on 07-27-2021 Cholesterol in LDL [Mass/Vol] 48 mg/dL 0-130 [facility] Work Phone: Serum or plasma urea nitroge n measurement (mass/volume)on 07-27-2021 Urea nitrogen [Mass/Vol] 13 mg/dL 7-18 [facility] Work Phone: Thin prep Papanicolaou smear with manual screeningon 07-27-2021 Thin prep Papanicolaou smear with manual screening 34 U/L 15-37 [facility] Work Phone: Thin prep Papanicolaou smear with manual screening 6 5-15 [facility] Work Phone: Basophil percentageon 2021 Basophil percentage 2.7 mg/dL 2.5-4.9 [facility] Work Phone: CBC + DIFFon 07-26-2021 Baso # 0.00 x10EE3/UL Normal 0.00 - 0.10 [facility] Comment on above: Performed By: #### 2 [id number] #### [facility],[address] [place] [address] Basophils/100 WBC (Bld) 0.8 % Normal 0.0 - 2.0 [facility] Comment on above: Performed By: #### 2 [id number] #### [facility],[address] [place] [address] CBC + DIFF Normal [facility] Comment on above: Result Comment: CBC- COMPLETE BLOOD COUNT Performed By: #### 2 [id number] #### [facility],[address] [place] [address] EO # 0.10 x10EE3/UL Normal 0.00 - 0.50 [facility] Comment on above: Performed By: #### 2 [id number] #### [facility],[address] [place], [place] [id number] Eosinophils/100 WBC (Bld) 2.4 % Normal 0.0 - 7.0 [facility] Comment on above: Performed By: #### 2 [id number] #### [facility],[address] [place] [address] Erythrocyte distribution width (RBC) [Ratio] 14.3 % Normal 12.0 - 15.6 [facility] Comment on above: Performed By: #### 2 [id number] #### [facility],[address] [place] [address] Hematocrit (Bld) [Volume fraction] 52.7 % High 40.0 - 52.0 [facility] Comment on above: Performed By: #### 2 [id number] #### [facility],[address] [place] [address] Hemoglobin (Bld) [Mass/Vol] 18.1 g/dL High 13.0 - 17.5 [facility] Comment on above: Performed By: #### 2 [id number] #### [facility],[address] [place], [place] [id number] Lymph # 1.00 x10EE3/UL Normal 0.80 - 2.80 [facility] Comment on above: Performed By: #### 2 68819 #### [facility],[address] [place], [place] [id number] Lymphocytes/100 WBC (Bld) 19.3 % Low 20.0 - 45.0 [facility] Comment on above: Performed By: #### 2 [id number] #### [facility],[address] [place], [place] [id number] MANUAL DIFF N/A Normal [facility] Comment on above: Performed By: #### 2 [id number] #### [facility],[address] [place], [place] [id number] MCH (RBC) [Entitic mass] 34 pg High 27 - 33 [facility] Comment on above: Performed By: #### 2 [id number] #### [place] [address] MCHC 34 X10 3 Normal 32 - 36 [facility] Comment on above: Performed By: #### 2 [id number] #### [place] [address] MCV (RBC) [Entitic vol] 98 fL Normal 81 - 98 [facility] Comment on above: Performed By: #### 2 [id number] #### [place] [address] Dougherty # 0.40 x10EE3/UL Normal 0.20 - 1.00 [facility] Comment on above: Performed By: #### 2 71427 #### [place] [address] MONOS % 8.5 % Normal 0.0 - 10.0 [facility] Comment on above: Performed By: #### 2 [id number] #### [place] [address] Morphology Aquilino (Bld) [Interp] N/A Normal [facility] Comment on above: Result Comment: {CD] Performed By: #### 2 [id number] #### [place] [address] Neut # 3.60 x10EE3/UL Normal 1.50 - 7.10 [facility] Comment on above: Performed By: #### 2 62634 #### [place] [address] Neutrophils/100 WBC (Bld) 69.0 % Normal 46.0 - 76.0 [facility] Comment on above: Performed By: #### 2 16199 #### [place] [address] PLATELET 234 x10EE3/UL Normal 150 - 450 [facility] Comment on above: Performed By: #### 2 05777 #### [facility],[address] [place] [address] Platelet mean volume (Bld) [Entitic vol] 8.2 fL Normal 6.4 - 10.5 [facility] Comment on above: Result Comment: AUTO MATED DIFFERENTIAL Performed By: #### 2 99999 #### [facility],[address] [place] [address] RBC 5.39 x 10EE6/UL Normal 4.50 - 6.00 [facility] Comment on above: Performed By: #### 2 48806 #### [facility],[address] [place] [address] WBC 5.2 x 10EE3/UL Normal 4.5 - 10.8 [facility] Comment on above: Performed By: #### 2 [id number] #### [facility],[address] [place] [address] CHEST 1 VIEWon 07-26-2021 CHEST 1 VIEW [place] [address] Patient: RIGO DIAZ Phone#: : 1950 Age: 70 Gender: M Pt. Type: ER Account: [id number] Location: [facility] Ordering: DR. ZAIRE SUAREZ Exam Date: 07/25/2021/22:01 Family Phys: Charge Code: [id number] Physician: [place] Order #: [id number] DLP Dose#: PROCEDURE: X-RAY CHEST 1 VIEW COMPARISON: None. INDICATIONS: AFIB FINDINGS: LUNGS: Normal. No significant pulmonary parenchymal abnormalities. VASCULATURE: Normal. Unremarkable pulmonary vasculature. CARDIAC: Normal. No cardiac silhouette abnormality or cardiomegaly. MEDIASTINUM: Normal. No visible mass or adenopathy. PLEURA: Normal. No effusion or pleural thickening. BONES: Normal. No fracture or visible bony lesion. OTHER: Sternotomy sutures are present. Cardiac pacing device is present. CONCLUSION: No acute disease. Dictated by: Tequlia De La Cruz MD on 07/26/2021 at 8:30 Approved by: Tequila De La Cruz MD on 07/26/2021 at 8:31 Normal [facility] CMP with eGFRon 07-26-2021 AGE 70 years Normal [facility] Comment on above: Performed By: #### 2 [id number] #### [facility],[address] [place] [address] 46994 Albumin [Mass/Vol] 4.5 g/dL Normal 3.4 - 5.0 [facility] Comment on above: Performed By: #### 2 67717 #### [facility],[address] [place] [address] 06085 Albumin/Globulin [Mass ratio] 1.1 {ratio} Normal 0.9 - 1.6 [facility] Comment on above: Performed By: #### 2 99234 #### [facility],[address] [place] [address] 88274 ALK PHOS 111 U/L Normal 46 - 116 [facility] Comment on above: Performed By: #### 2 15549 #### [facility],[address] [place] [address] 17352 ALT [Catalytic activity/Vol] 42 U/L Normal 16 - 63 [facility] Comment on above: Performed By: #### 2 11292 #### [facility],[address] [place] [address] 32207 Anion gap [Moles/Vol] 15 mmol/L Normal 10 - 20 [facility] Comment on above: Performed By: #### 2 04303 #### [facility],[address] [place] [address] 09148 AST [Catalytic activity/Vol] 27 U/L Normal 15 - 37 [facility] Comment on above: Performed By: #### 2 84407 #### [facility],[address] [place] [address] 78058 B/C RATIO 12 ratio Normal 0 - 30 [facility] Comment on above: Performed By: #### 2 85223 #### [facility],[address] [place] [address] 87067 Bilirubin [Mass/Vol] 0.6 mg/dL Normal 0.2 - 1.0 [facility] Comment on above: Performed By: #### 2 60559 #### [facility],[address] [place] [address] 05909 Calcium [Mass/Vol] 9.9 mg/dL Normal 8.5 - 10.1 [facility] Comment on above: Performed By: #### 2 34378 #### [facility],[address] [place], [place] [id number] Chloride [Moles/Vol] 100 mmol/L Normal 98 - 107 [facility] Comment on above: Performed By: #### 2 66650 #### [facility],[address] [place], [place] [id number] CMP with eGFR Normal [facility] Comment on above: Result Comment: COMP REHENSIVE METABOLIC PANEL Performed By: #### 2 76932 #### [facility],[address] [place] [address] 32351 CO2 [Moles/Vol] 27.8 mmol/L Normal 21.0 - 32.0 [facility] Comment on above: Performed By: #### 2 11446 #### [facility],[address] [place] [address] 52356 Creatinine [Mass/Vol] 1.25 mg/dL Normal 0.70 - 1.30 [facility] Comment on above: Performed By: #### 2 52398 #### [facility],[address] [place] [address] 91977 eGFR 57 ML/MINUTE Low 60 - 999 [facility] Comment on above: Performed By: #### 2 10591 #### [facility],[address] [place] [address] 66060 GFR/1.73 sq M.predicted among non-blacks MDRD (S/P/Bld) [Vol rate/Area] mL/min/{1.73_m2} Normal 60 - 999 [facility] Comment on above: Result Comment: ACCO RDING TO THE NATIONAL KIDNEY DISEASE EDUCATION PROGRAM(NKDE), A NORMAL eGFR IS A VALUE GREATER THAN OR EQUAL TO 60 ML/MIN/1.73 SQ METERS. CHRONIC KIDNEY DISEASE: <60mL/MIN/1.73 SQ METERS KIDNEY FAILURE: <15mL/MIN/1.73 SQ METERS THIS TEST SHOULD ONLY BE USED FOR PATIENTS 18 YEARS OF AGE AND OLDER. Performed By: #### 2 36087 #### [facility],[address] [place] [address] 62308 Globulin (S) [Mass/Vol] 4.1 g/dL High 1.5 - 3.8 [facility] Comment on above: Performed By: #### 2 85597 #### [facility],[address] [place] [address] 22667 Glucose [Mass/Vol] 157 mg/dL High 74 - 106 [facility] Comment on above: Performed By: #### 2 29663 #### [facility],[address] [place] [address] 75342 Potassium [Moles/Vol] 3.2 mmol/L Low 3.5 - 5.1 [facility] Comment on above: Performed By: #### 2 44974 #### [facility],[address] [place] [address] 62967 Protein [Mass/Vol] 8.6 g/dL High 6.4 - 8.2 [facility] Comment on above: Performed By: #### 2 11870 #### [facility],[address] [place] [address] 72323 Sodium [Moles/Vol] 140 mmol/L Normal 136 - 145 [facility] Comment on above: Performed By: #### 2 31438 #### [facility],[address] [place] [address] 77559 Urea nitrogen [Mass/Vol] 15 mg/dL Normal 7 - 18 [facility] Comment on above: Performed By: #### 2 01822 #### [facility],[address] [place] [address] 01795 CORONAVIRUS (SARS) ANTIGEN T ESTon 07-26-2021 EXTERNAL QC DONE? YES Normal [facility] Comment on above: Performed By: #### 2 53404 #### [facility],[address] [place] [address] INTERNAL CONTROL PASS Normal [facility] Comment on above: Performed By: #### 2 63549 #### [facility],[address] [place], [place] [id number] SARS ANTIGEN Positive Abnormal NORMAL: NEGATIVE [facility] Comment on above: Result Comment: { CA LLED TO ROXY/KYLE/0018 { READ BACK BY Performed By: #### 2 28136 #### [facility],[address] [place], [place] [id number] SEND TO IC? YES Normal [facility] Comment on above: Result Comment: SARS -CoV-2 THIS TEST IS BEING USED UNDER THE FDA EUA PROCEDURE. THIS ASSAY HAS BEEN VALIDATED AT [facility] FOR USE WITH NASAL AND NASOPHARYNGEAL SWAB SPECIMENS. INTERPRETIVE DATA TEST RESULTS SHOULD ALWAYS BE CONSIDERED IN THE CONTEXT OF CLINICAL OBSERVATIONS AND EPIDEMIOLOGICAL DATA IN MAKING FINAL DIAGNOSIS AND PATIENT MANAGEMENT DECISIONS. PATIENT MANAGEMENT SHOULD FOLLOW CURRENT CDC GUIDELINES. THE [place] SARS ANTIGEN ADELA DOES NOT DIFFERENTIATE BETWEEN SARS-CoV & SARS-CoV-2. A POSITIVE TEST RESULT INDICATES THE PRESENCE OF SARS-CoV-2 NUCLEOCAPSID PROTEIN ANTIGEN, AND THE PATIENT IS INFECTED WITH THE VIRUS AND PRESUMED TO BE CONTAGIOUS. A NEGATIVE TEST RESULT FOR THIS TEST MEANS THAT SARS-CoV-2 NUCLEOCAPSID PROTEIN ANTIGEN WAS NOT PRESENT IN THE SPECIMEN ABOVE THE LIMIT OF DETECTION. HOWEVER, A NEGATIVE RESULT DOES NOT RULE OUT COVID-19 AND SHOULD NOT BE USED THE SOLE BASIS FOR TREATMENT OR PATIENT MANAGEMENT DECISIONS. A NEGATIVE RESULT DOES NOT EXCLUDE THE POSSIBILITY OF COVID-19. NEGATIVE RESULTS, FROM PATIENTS WITH SYMPTOM ONSET BEYOND FIVE DAYS, SHOULD BE TREATED PRESUMPTIVE AND CONFIRMATION WITH A MOLECULAR ASSAY, IF NECESSARY, FOR PATIENT MANAGEMENT, MAY BE PERFORMED. WHEN DIAGNOSTIC TESTING IS NEGATIVE, THE POSSIBLILTY OF A FALSE NEGATIVE RESULT SHOULD BE CONSIDERED IN THE CONTEXT OF A PATIENT'S RECENT EXPOSURES AND THE PRESENCE OF CLINICAL SIGNS AND SYMPTOMS CONSISTENT WITH COVID-19. THE POSSIBILITY OF A FALSE NEGATIVE RESULT SHOULD ESPECIALLY BE CONSIDERED IF THE PATIENT'S RECENT EXPOSURES OR CLINICAL PRESENTATION INDICATE THAT COVID-19 IS LIKELY, AND DIAGNOSTIC TESTS FOR OTHER CAUSES OF ILLNESS (e.g., OTHER RESPIRATORY ILLNESS) ARE NEGATIVE. IF COVID-19 IS STILL SUSPECTED BASED ON EXPOSURE HISTORY TOGETHER WITH OTHER CLINICAL FINDINGS, RE-TESTING SHOULD BE CONSIDERED BY HEALTHCARE PROVIDERS IN CONSULTATION WITH PUBLIC HEALTH AUTHORITIES. Performed By: #### 2 20054 #### [facility],[address] [place] [address] CT BRAIN W/O CONTRASTon 07-10 CT BRAIN W/O CONTRAST [place] [address] Patient: RIGO DIAZ Phone#: : [phone] Age: 70 Gender: M Pt. Type: ER Account: [id number] Location: [facility] Ordering: DR. ZAIRE SUAREZ Exam Date: 07/25/2021/22:23 Family Phys: Charge Code: [id number] Physician: [place] Order #: [id number] DLP Dose#: 52.30 mGy PROCEDURE: CT BRAIN WITHOUT CONTRAST COMPARISON: None. INDICATIONS: Headache. TECHNIQUE: CT images were obtained without contrast material. All CT scans at this facility use dose modulation, iterative reconstruction, and/or weight based dosing when appropriate to reduce radiation dose to as low as reasonably achievable. IV CONTRAST: No IV contrast used,0ml TOTAL DOSE: 52.30 CTDIvol(mGy) FINDINGS: CEREBRUM: Age-appropriate atrophy is present, without visible acute hemorrhage or lesion. CEREBELLUM: No edema, hemorrhage, mass, acute infarction, or inappropriate atrophy. BRAINSTEM: No edema, hemorrhage, mass, acute infarction, or inappropriate atrophy. CSF SPACES: Ventricles, cisterns, and sulci are appropriate for age. No hydrocephalus, subarachnoid hemorrhage, or mass. SKULL: No mass or other significant visible lesion. SINUSES: Minimal maxillary sinus mucosal thickening is present. ORBITS: Limited views are unremarkable. OTHER: Negative. CONCLUSION: No acute disease. Dictated by: Tequila De La Cruz MD on 07/26/2021 at 10:07 Approved by: Tequila De La Cruz MD on 07/26/2021 at 10:09 Normal [facility] Laboratory - Chemistry and C hemistry - challengeon 07-26-2021 Magnesium [Mass/Vol] 1.5 mg/dL 1.6-2.6 [facility] Work Phone: Natriuretic peptide B (Bld) [Mass/Vol] 207.6 pg/mL 0-100 [facility] Work Phone: MAGNESIUMon 07-26-2021 Magnesium [Mass/Vol] 1.8 mg/dL Normal 1.8 - 2.4 [facility] Comment on above: Performed By: #### 2 39384 #### [facility],[address] [place] [address] No Panel Informationon 07-26 Troponin I High Sensitivity 443 pg/mL 3.0-78.0 [facility] Work Phone: Comment on above: Critical Result(s) C alled at: 21:41:17 07/26/2021 by: Kandis Salgueroberkeley. Results read back by same. Please Note: New Test Units and Gender Specific Reference Ranges. For more information see Policy Stat Procedure [place] High Sensitivity Troponin (TNIH) and attachments. PROTHROMBIN TIME AND INRon 0 07-26-2021 INR Coag (PPP) [Relative time] 1.1 {INR} Normal 0.8 - 1.2 [facility] Comment on above: Result Comment: T HE HEMOSIL THROMBOPLASTIN REAGENT USED IN THE PROTHROMBIN TIME TEST INTERACTS WITH THE DRUG CUBICIN (DAPTOMYCIN) AND WILL RESULT IN FALSELY ELEVATED PT / INR RESULTS INR INTERPRETATION INR INDICATION PREVENTION AND TREATMENT OF THROMBOEMBOLISM ASSOCIATED WITH: 2.0 - 3.0 ATRIAL FIBRILLATION, BIOPROSTHETIC HEART VALVES, PULMONARY EMBOLISM, VENOUS THROMBOSIS, SYSTEMIC EMBOLISM POST MYOCARDIAL INFARCTION 2.5 - 3.5 MECHANICAL HEART VALVES Performed By: #### 2 06758 #### [facility],[address] [place] [address] 44133 PROTHROMBIN TIME AND INR Normal [facility] Comment on above: Result Comment: PROT HROMBIN TIME AND INR Performed By: #### 2 89073 #### [facility],[address] [place], [place] [id number] PT-COUMADIN 12.5 sec Normal 9.3 - 14.1 [facility] Comment on above: Performed By: #### 2 88983 #### [facility],[address] [place], [place] [address] TROPONIN I, HIGH SENSITIVITY on 07-26-2021 HS TROPONIN 631.9 pg/mL Critically high 0.0 - 76.2 [facility] Comment on above: Result Comment: { CA LLED TO CHERRIE@1231 / WKK { READ BACK BY CHERRIE / @1230 Performed By: #### 2 01427 #### [facility],[address] [place], [place] [id number] HS TROPONIN 18.6 pg/mL Normal 0.0 - 76.2 [facility] Comment on above: Performed By: #### 2 49641 #### [facility],[address] [place] [address] 59516 CNOVsandi 07-15-2019 CNOV Office Visit (AGCARDPOB) RIGO DIAZ ([id number]) 1950 M Date Time Provider Department 07/15/19 1:00 PM CARIDAD CUNNINGHAM (DISTRIBUTION CENTER ASSISTANT.EMBLEM CUTTER) THAIS During your visit today, we recorded the following information about you: Pulse Respiration Blood pressure Weight 71/minute 16/minute 130/72 103.9 kg Height 1.93 m Clint Parnell MA, MA 07/15/2019 1:00 PM Signed Patient has no cardiac complaints Caridad Cunningham APRN.MIGUELITO 07/15/2019 1:38 PM Signed [facility] Cardiology Electrophysiology PRIMARY CARE PHYSICIAN: Jarad Mcwilliams MD [address] [address] [place] [address] CHIEF COMPLAINT: ICD in situ and NSVT. HISTORY OF PRESENT ILLNESS: Mr. Diaz is a 68 year old male who presents today for hospital follow-up regarding ICD implantation. The patient was hospitalized in March for sustained VT subsequently underwent coronary angiography which demonstrated multivessel coronary disease, requiring CABG on 04/02/2019. He also has a history of essential hypertension, coronary disease, prior PCI's. Post CABG surgery the patient continued to have NSVT despite being loaded with IV amiodarone. Dr. Kennedy saw the patient in consultation, performed an EP study that was inducible for VT, subsequently an ICD was implanted on 04/12/2019, and the patient remained on amiodarone therapy. Interval History: The patient reports he has been doing well from a heart rhythm and device standpoint. He follows with Dr. Torres and participates in cardiac rehabilitation in [place]. He denies chest discomfort, palpitations, pain at the ICD site, ICD shocks, shortness of breath, lightheadedness and dizziness. 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 - PAST SURGICAL HISTORY OF 2002 herniorrhaphy left inguinal - PAST SURGICAL HISTORY OF 1963 elbow surgery bone chips - REMOVE CATARACT, INSERT LENS,EX 2010 OD - REMOVE CATARACT, INSERT LENS,EX OS 07/23/12 OS - TRABECULECTOMY WITH SCARRING 2010 OD Social History Tobacco Use - Smoking status: Former Smoker Packs/day: 1.00 Years: 50.00 Pack years: 50.00 Types: Cigarettes Last attempt to quit: 03/23/2019 Years since quittin.3 - Smokeless tobacco: Never Used Substance Use Topics - Alcohol use: No - Drug use: No Family History Problem Relation Age of Onset - Emphysema Father - No Ocular Disease Father - Coronary Artery Disease Mother - No Ocular Disease Mother - Macular [place] Other ALLERGIES No Known Allergies MEDICATIONS: acetaminophen (TYLENOL) 325 mg tablet Take 2 tablets by mouth every 6 hours as needed. ascorbic acid, vitamin C, (VITAMIN C) 500 mg tablet Take 1 tablet by mouth twice daily. Take with Iron. clopidogrel (PLAVIX) 75 mg tablet Take 1 tablet by mouth once daily. Take for 1 year after surgery. magnesium oxide (MAG-OX) 400 mg (241.3 mg magnesium) tablet Take 1 tablet by mouth twice daily. amiodarone (PACERONE) 200 mg tablet Take 1 tablet by mouth once daily. atorvastatin (LIPITOR) 40 mg tablet Take 40 mg by mouth once daily. ALPHAGAN P 0.1 % drop USE 1 DROP IN THE LEFT EYE TWICE A DAY latanoprost (XALATAN) 0.005 % ophthalmic solution USE 1 DROP IN THE LEFT EYE DAILY AT BEDTIME, DISCARD AFTER 42 DAYS METOPROLOL 50 MG TAB Take one(1) tablet two(2) times daily. multivitamins w-minerals/lut(CENTRU M SILVER TAB) Take one(1) tablet daily. aspirin(ECOTRIN LOW STRENGTH 81 MG TAB) Take one(1) tablet daily. REVIEW OF SYSTEMS: Review of Systems Constitutional: Negative for chills, diaphoresis and fever. Respiratory: Negative for cough, hemoptysis, sputum production, shortness of breath and wheezing. Cardiovascular: Negative for chest pain, palpitations, orthopnea, leg swelling and PND. Musculoskeletal: Negative for myalgias. Neurological: Negative for dizziness, loss of consciousness and headaches. PHYSICAL EXAMINATION: BP 130/72 Pulse 71 Resp 16 Ht 6' 4 (1.93m) Wt 229 lb (103.9kg) SpO2 97% BMI 27.89 kg/(m2). Physical Exam Constitutional: He is oriented to person, place, and time and well-developed, well-nourished, and in no distress. Vital signs are normal. No distress. HENT: Head: Normocephalic and atraumatic. Neck: Trachea normal. Neck supple. No JVD present. Carotid bruit is not present. Cardiovascular: Normal rate, regular rhythm, S1 normal, S2 normal and intact distal pulses. Exam reveals no gallop. No murmur heard. Pulses: Radial pulses are 2+ on the right side and 2+ on the left side. Posterior tibial pulses are 2+ on the right side and 2+ on the left side. Left prepectoral ICD site without signs of infection, redness or swelling. Pulmonary/Chest: Effort normal and breath sounds normal. No respiratory distress. He has no wheezes. He has no rales. He exhibits no tenderness. Musculoskeletal: Normal range of motion. General: No edema. Neurological: He is alert and oriented to person, place, and time. Skin: Skin is warm and dry. He is not diaphoretic. Nails show no clubbing. Psychiatric: Affect normal. Nursing note and vitals reviewed. CARDIOVASCULAR MEDICINE TESTING: Echocardiogram: 04/03/2019 CONCLUSIONS: - Technically difficult exam due to post op, suboptimal positioning and bandages/chest tubes/wound. - Exam indication: Hypotension - The left ventricle is normal in size. Left ventricular systolic function is normal. EF = 65 ? 5% (visual est.) Definity contrast used for endocardial border detection. - Study is suboptimal for assessment of pericardial effusion. Within the limitations of the study, there is no obvious pericardial effusion. Inflow velocities have no significant respiratory variation arguing against significant tamponade. - Exam was compared with the prior echocardiographic exam performed on 04/02/19.?There is no significant change. PLAN AND RECOMMENDATIONS: ASSESSMENT/PLAN: 1. ICD (implantable cardioverter-defibril lator), dual, in situ - ICD9: V45.02, ICD10: Z95.810 (primary diagnosis) - The patient underwent EP study positive for inducible ventricular tachycardia, subsequently underwent implantation of [employer] dual-chamber ICD with Dr. Kennedy on 04/12/19 for sustained ventricular tachyarrhythmia. He has been doing well from a device standpoint, he is followed by Dr. Torres at [facility] and [place] device clinic. We discussed he can continue to follow there, he does not need to follow at both locations, he is agreeable, and will follow-up as needed at the referral of Dr. Torres, patient verbalizes understanding. 2. NSVT (nonsustained ventricular tachycardia) (HCC) - ICD9: 427.1, ICD10: I47.2 - ICD in situ, see above. 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 Return if symptoms worsen or fail to improve. Caridad Cunningham APRN.MIGUELITO Cunningham APRN.MIGUELITO 07/15/2019 1:22 PM Signed CORONARY ARTERY DISEASE View image View image WHAT IS CORONARY ARTERY DISEASE? Coronary artery disease (CAD) is a type of heart disease caused by a problem with the blood vessels that bring blood and oxygen to the heart muscle. These arteries are called the coronary arteries. This disease increases your risk for heart attack and sudden . WHAT IS THE CAUSE? Fatty deposits called plaque may build up in blood vessels and make them narrower. The narrowing decreases the amount of blood flow to the heart. Plaque also increases the chance that blood clots may form and block a blood vessel, which can cause a heart attack or stroke. Your risk for CAD may be higher if you: ? Have a family history of coronary artery disease at an early age ? Smoke ? Have high blood pressure ? Have diabetes ? Are very overweight ? Don?t get enough exercise ? Have high levels of blood fat--for example, high cholesterol WHAT ARE THE SYMPTOMS? Coronary artery disease may not cause any symptoms. When there are symptoms, the most common one is chest pain, called angina. You may feel: ? A feeling of tightness or heaviness in the chest ? Squeezing, pressure, or burning in the chest Angina symptoms usually: ? Last for 5 minutes or less and go away with rest or medicine such as nitroglycerin. ? Happen when the heart has to work harder, such as after a heavy meal or during physical activity or emotional stress. Angina may also happen when you are resting. Call 911 for emergency help right away if you have symptoms of a heart attack. The most common symptoms include: ? Chest pain or pressure, squeezing, or fullness in the center of your chest that lasts more than a few minutes, or goes away and comes back (may feel like indigestion or heartburn) ? Pain or discomfort in one or both arms or shoulders, or in your back, neck, jaw, or stomach ? Trouble breathing ? Breaking out in a cold sweat for no known reason ? If your provider has prescribed nitroglycerin for angina, pain that does not go away after taking your nitroglycerin as directed Along with these symptoms, you may also feel very tired, faint, or be sick to your stomach. HOW IS IT DIAGNOSED? Your healthcare provider will ask about your symptoms and medical history and examine you. Tests may include: ? Blood tests ? An ECG (also called an EKG or electrocardiogram), which measures and records your heartbeat. ? An exercise treadmill test to see how your heart works when you exercise ? An echocardiogram, which uses sound waves (ultrasound) to see how well your heart is pumping ? Angiogram, which is a series of X-rays taken after your healthcare provider injects a special dye into your blood vessels to show the roberts of the arteries and any blockage ? CT scan, which uses X-rays and a computer to show detailed pictures of the arteries HOW IS IT TREATED? Your treatment depends on many factors, such as your age, heart muscle function, and other health problems. At first, treatment may include diet changes and an exercise program. Your healthcare provider may prescribe medicine. ? Many people need to take 2 or more medicines to help prevent a heart attack or stroke. It may take several weeks or months to find the best treatment for you. ? Your provider may also prescribe other types of medicine to lower blood pressure, help stop chest pain, control an irregular heartbeat, help prevent blood clots, or lower blood fat (cholesterol). Your provider may recommend a daily low dose of aspirin. Taking an aspirin every day may lower your risk for a heart attack or stroke. Not everyone should take aspirin. Daily use of aspirin can cause problems, such as stomach irritation, bleeding, and hearing loss. Ask your healthcare provider if you should take aspirin and if so, how much to take. If your coronary arteries are badly blocked, you may need balloon angioplasty or bypass surgery. ? A balloon angioplasty opens blocked blood vessels and improves blood flow. A metal mesh device called a stent is usually left in the blood vessels to help keep them open. ? Bypass surgery uses blood vessels from other parts of the body, or manmade material, to make a new path around a blocked area. HOW CAN I TAKE CARE OF MYSELF? If you have coronary artery disease, there are things you can do to take care of yourself now and prevent problems in the future. ? Follow your provider's advice about activity, exercise, medicine, and follow-up visits. ? Lower the amount of salt, saturated and trans fats, and cholesterol in your diet. ? Work with your healthcare provider to control diabetes, blood pressure, or other health problems you may have. ? Try to keep a healthy weight. If you are overweight, talk to your provider about ways to lose weight. ? If you smoke, try to quit. Talk to your healthcare provider about ways to quit smoking. ? Ask your healthcare provider: o How and when you will hear your test results o How long it will take to recover o What activities you should avoid and when you can return to your normal activities o How to take care of yourself at home o What symptoms or problems you should watch for and what to do if you have them ? Make sure you know when you should come back for a checkup. HOW CAN I HELP PREVENT CORONARY ARTERY DISEASE? You can prevent this disease with a heart-healthy lifestyle: ? Eat a healthy diet and keep a healthy weight. ? Stay fit with the right kind of exercise for you. ? Find ways to manage stress. ? Don?t smoke. ? Limit your use of alcohol. Talk to your healthcare provider about your personal and family medical history and your lifestyle habits. This will help you know what you can do to lower your risk for coronary artery disease. If you have a strong family history of CAD, a healthy lifestyle may slow the start of the disease and maybe even keep you from getting it. However, you must have regular checkups to keep a close watch on the health of your heart. Developed by [employer]. Published by [employer]. Copyright ?2014 [employer] and/or one of its subsidiaries. All rights reserved. Referring Provider: SELF [[id number]] Allergies As of Date: 07/15/2019 (No Known Allergies) Date Reviewed: 07/15/2019 Reviewed by: Caridad (Lead Clinical Research Coordinator.Manufacturing Maintenance Manager) Sami - Fully Assessed Reason for Visit: CARD Follow Up 3 Month [1230] Primary Visit Diagnosis:ICD (implantable cardioverter-defibril lator), dual, in situ [Z95.810] Other Visit Diagnoses:NSVT (nonsustained ventricular tachycardia) (HCC) [I47.2] USP current use of antiarrhythmic drug [Z79.899] Prescriptions as of 07/15/2019 Sig: ACETAMINOPHEN 325 MG TABLET Take 2 tablets by mouth every* ASCORBIC ACID (VITAMIN C) 500* Take 1 tablet by mouth twice * CLOPIDOGREL 75 MG TABLET Take 1 tablet by mouth once d* MAGNESIUM OXIDE 400 MG (241.3* Take 1 tablet by mouth twice * AMIODARONE 200 MG TABLET Take 1 tablet by mouth once d* ATORVASTATIN 40 MG TABLET Take 40 mg by mouth once nadeem* ALPHAGAN P 0.1 % EYE DROPS USE 1 DROP IN THE LEFT EYE TW* LATANOPROST 0.005 % EYE DROPS USE 1 DROP IN THE LEFT EYE DA* * METOPROLOL TARTRATE 50 MG TAB* Take one(1) tablet two(2) alvino* Patient taking differently: Take 100 mg by mouth. * CENTRUM SILVER TABLET Take one(1) tablet daily. * ECOTRIN LOW STRENGTH 81 MG TA* Take one(1) tablet daily. FERROUS SULFATE 325 MG (65 MG* Take 1 tablet by mouth twice * Problem List As Of Date 07/15/2019 Noted Resolved SKIN DISORDER NOS [L98.9] 08/01/2007 Diabetes mellitus type 2, controlled, without c*10/17/2007 More... HYPERTENSION NOS [I10] 10/17/2007 More... More... HYPERLIPIDEMIA NEC/NOS [E78.5] 10/17/2007 More... NSVT (nonsustained ventricular tachycardia) (HC*10/17/2007 More... Tobacco use disorder [F17.200] 10/17/2007 More... Psychosexual dysfunction with inhibited sexual *10/19/2007 07/15/2019 More... OBESITY NOS [E66.9] 10/19/2007 More... CORONARY ATHEROSCLER UNSPEC VESSEL [I25.10] 10/19/2007 More... HEARING LOSS NOS [H91.90] 10/19/2007 More... LUMBAGO [M54.5] 10/19/2007 More... PERIPH VASCULAR DIS NOS [I73.9] 10/19/2007 More... Unspecified glaucoma [H40.9] 10/19/2007 09/03/2012 More... 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 Coronary artery disease (CAD) is a type of heart disease caused by a problem with the blood vessels that bring blood and oxygen to the heart muscle. These arteries are called the coronary arteries. This disease increases your risk for heart attack and sudden . WHAT IS THE CAUSE? Fatty deposits called plaque may build up in blood vessels and make them narrower. The narrowing decreases the amount of blood flow to the heart. Plaque also increases the chance that blood clots may form and block a blood vessel, which can cause a heart attack or stroke. Your risk for CAD may be higher if you: ? Have a family history of coronary artery disease at an early age ? Smoke ? Have high blood pressure ? Have diabetes ? Are very overweight ? Don?t get enough exercise ? Have high levels of blood fat--for example, high cholesterol WHAT ARE THE SYMPTOMS? Coronary artery disease may not cause any symptoms. When there are symptoms, the most common one is chest pain, called angina. You may feel: ? A feeling of tightness or heaviness in the chest ? Squeezing, pressure, or burning in the chest Angina symptoms usually: ? Last for 5 minutes or less and go away with rest or medicine such as nitroglycerin. ? Happen when the heart has to work harder, such as after a heavy meal or during physical activity or emotional stress. Angina may also happen when you are resting. Call 911 for emergency help right away if you have symptoms of a heart attack. The most common symptoms include: ? Chest pain or pressure, squeezing, or fullness in the center of your chest that lasts more than a few minutes, or goes away and comes back (may feel like indigestion or heartburn) ? Pain or discomfort in one or both arms or shoulders, or in your back, neck, jaw, or stomach ? Trouble breathing ? Breaking out in a cold sweat for no known reason ? If your provider has prescribed nitroglycerin for angina, pain that does not go away after taking your nitroglycerin as directed Along with these symptoms, you may also feel very tired, faint, or be sick to your stomach. HOW IS IT DIAGNOSED? Your healthcare provider will ask about your symptoms and medical history and examine you. Tests may include: ? Blood tests ? An ECG (also called an EKG or electrocardiogram), which measures and records your heartbeat. ? An exercise treadmill test to see how your heart works when you exercise ? An echocardiogram, which uses sound waves (ultrasound) to see how well your heart is pumping ? Angiogram, which is a series of X-rays taken after your healthcare provider injects a special dye into your blood vessels to show the roberts of the arteries and any blockage ? CT scan, which uses X-rays and a computer to show detailed pictures of the arteries HOW IS IT TREATED? Your treatment depends on many factors, such as your age, heart muscle function, and other health problems. At first, treatment may include diet changes and an exercise program. Your healthcare provider may prescribe medicine. ? Many people need to take 2 or more medicines to help prevent a heart attack or stroke. It may take several weeks or months to find the best treatment for you. ? Your provider may also prescribe other types of medicine to lower blood pressure, help stop chest pain, control an irregular heartbeat, help prevent blood clots, or lower blood fat (cholesterol). Your provider may recommend a daily low dose of aspirin. Taking an aspirin every day may lower your risk for a heart attack or stroke. Not everyone should take aspirin. Daily use of aspirin can cause problems, such as stomach irritation, bleeding, and hearing loss. Ask your healthcare provider if you should take aspirin and if so, how much to take. If your coronary arteries are badly blocked, you may need balloon angioplasty or bypass surgery. ? A balloon angioplasty opens blocked blood vessels and improves blood flow. A metal mesh device called a stent is usually left in the blood vessels to help keep them open. ? Bypass surgery uses blood vessels from other parts of the body, or manmade material, to make a new path around a blocked area. HOW CAN I TAKE CARE OF MYSELF? If you have coronary artery disease, there are things you can do to take care of yourself now and prevent problems in the future. ? Follow your provider's advice about activity, exercise, medicine, and follow-up visits. ? Lower the amount of salt, saturated and trans fats, and cholesterol in your diet. ? Work with your healthcare provider to control diabetes, blood pressure, or other health problems you may have. ? Try to keep a healthy weight. If you are overweight, talk to your provider about ways to lose weight. ? If you smoke, try to quit. Talk to your healthcare provider about ways to quit smoking. ? Ask your healthcare provider: o How and when you will hear your test results o How long it will take to recover o What activities you should avoid and when you can return to your normal activities o How to take care of yourself at home o What symptoms or problems you should watch for and what to do if you have them ? Make sure you know when you should come back for a checkup. HOW CAN I HELP PREVENT CORONARY ARTERY DISEASE? You can prevent this disease with a heart-healthy lifestyle: ? Eat a healthy diet and keep a healthy weight. ? Stay fit with the right kind of exercise for you. ? Find ways to manage stress. ? Don?t smoke. ? Limit your use of alcohol. Talk to your healthcare provider about your personal and family medical history and your lifestyle habits. This will help you know what you can do to lower your risk for coronary artery disease. If you have a strong family history of CAD, a healthy lifestyle may slow the start of the disease and maybe even keep you from getting it. However, you must have regular checkups to keep a close watch on the health of your heart. Developed by [employer]. Published by [employer]. Copyright ?2014 [employer] and/or one of its subsidiaries. All rights reserved. Visit Notes: >> Clint (Andra) ANDRA Parnell Mon Jul 15, 2019 12:57 PM Status: Signed Patient has no cardiac complaints Medications Discontinued During This Encounter Blood-Glucose Meter misc 1 Ea* 0 04/13/2019 07/15/2019 Cmt: Please fill with brand covered by patient's insurance. Diagnosis: Type 2 diabetes mellitus without complications [E11.9] Route: Miscell. (Med.Supl.;Non-Drugs) Si Device one time only for 1 dose. Test One time a day. Disc: Reason for discontinue is not on file. Disposition: Return if symptoms worsen or fail to improve. Follow-up and Disposition History Recorded Letter Text Encounter Status:Closed by CARIDAD CUNNINGHAM on 07/15/19 Normal [facility] PROGRESSon 07-15-2019 PROGRESS HNO ID: [id number] Author: Caridad (Lead Clinical Research Coordinator.Manufacturing Maintenance Manager) Sami Service: ? Author Type: Nurse Practitioner Type: Progress Notes Filed: 07/15/2019 1:38 PM Note Text: [facility] Cardiology Electrophysiology PRIMARY CARE PHYSICIAN: Jarad Mcwilliams MD [address] [place] [address] CHIEF COMPLAINT: ICD in situ and NSVT. HISTORY OF PRESENT ILLNESS: Mr. Diaz is a 68 year old male who presents today for hospital follow-up regarding ICD implantation. The patient was hospitalized in March for sustained VT subsequently underwent coronary angiography which demonstrated multivessel coronary disease, requiring CABG on 04/02/2019. He also has a history of essential hypertension, coronary disease, prior PCI's. Post CABG surgery the patient continued to have NSVT despite being loaded with IV amiodarone. Dr. Kennedy saw the patient in consultation, performed an EP study that was inducible for VT, subsequently an ICD was implanted on 04/12/2019, and the patient remained on amiodarone therapy. Interval History: The patient reports he has been doing well from a heart rhythm and device standpoint. He follows with Dr. Torres and participates in cardiac rehabilitation in [place]. He denies chest discomfort, palpitations, pain at the ICD site, ICD shocks, shortness of breath, lightheadedness and dizziness. 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 - PAST SURGICAL HISTORY OF 2002 herniorrhaphy left inguinal - PAST SURGICAL HISTORY OF 1963 elbow surgery bone chips - REMOVE CATARACT, INSERT LENS,EX 2010 OD - REMOVE CATARACT, INSERT LENS,EX OS 07/23/12 OS - TRABECULECTOMY WITH SCARRING 2010 OD Social History Tobacco Use - Smoking status: Former Smoker Packs/day: 1.00 Years: 50.00 Pack years: 50.00 Types: Cigarettes Last attempt to quit: 03/23/2019 Years since quittin.3 - Smokeless tobacco: Never Used Substance Use Topics - Alcohol use: No - Drug use: No Family History Problem Relation Age of Onset - Emphysema Father - No Ocular Disease Father - Coronary Artery Disease Mother - No Ocular Disease Mother - Macular Degen Other ALLERGIES No Known Allergies MEDICATIONS: acetaminophen (TYLENOL) 325 mg tablet Take 2 tablets by mouth every 6 hours as needed. ascorbic acid, vitamin C, (VITAMIN C) 500 mg tablet Take 1 tablet by mouth twice daily. Take with Iron. clopidogrel (PLAVIX) 75 mg tablet Take 1 tablet by mouth once daily. Take for 1 year after surgery. magnesium oxide (MAG-OX) 400 mg (241.3 mg magnesium) tablet Take 1 tablet by mouth twice daily. amiodarone (PACERONE) 200 mg tablet Take 1 tablet by mouth once daily. atorvastatin (LIPITOR) 40 mg tablet Take 40 mg by mouth once daily. ALPHAGAN P 0.1 % drop USE 1 DROP IN THE LEFT EYE TWICE A DAY latanoprost (XALATAN) 0.005 % ophthalmic solution USE 1 DROP IN THE LEFT EYE DAILY AT BEDTIME, DISCARD AFTER 42 DAYS METOPROLOL 50 MG TAB Take one(1) tablet two(2) times daily. multivitamins w-minerals/lut(CENTRU M SILVER TAB) Take one(1) tablet daily. aspirin(ECOTRIN LOW STRENGTH 81 MG TAB) Take one(1) tablet daily. REVIEW OF SYSTEMS: Review of Systems Constitutional: Negative for chills, diaphoresis and fever. Respiratory: Negative for cough, hemoptysis, sputum production, shortness of breath and wheezing. Cardiovascular: Negative for chest pain, palpitations, orthopnea, leg swelling and PND. Musculoskeletal: Negative for myalgias. Neurological: Negative for dizziness, loss of consciousness and headaches. PHYSICAL EXAMINATION: BP 130/72 Pulse 71 Resp 16 Ht 6' 4 (1.93m) Wt 229 lb (103.9kg) SpO2 97% BMI 27.89 kg/(m2). Physical Exam Constitutional: He is oriented to person, place, and time and well-developed, well-nourished, and in no distress. Vital signs are normal. No distress. HENT: Head: Normocephalic and atraumatic. Neck: Trachea normal. Neck supple. No JVD present. Carotid bruit is not present. Cardiovascular: Normal rate, regular rhythm, S1 normal, S2 normal and intact distal pulses. Exam reveals no gallop. No murmur heard. Pulses: Radial pulses are 2+ on the right side and 2+ on the left side. Posterior tibial pulses are 2+ on the right side and 2+ on the left side. Left prepectoral ICD site without signs of infection, redness or swelling. Pulmonary/Chest: Effort normal and breath sounds normal. No respiratory distress. He has no wheezes. He has no rales. He exhibits no tenderness. Musculoskeletal: Normal range of motion. General: No edema. Neurological: He is alert and oriented to person, place, and time. Skin: Skin is warm and dry. He is not diaphoretic. Nails show no clubbing. Psychiatric: Affect normal. Nursing note and vitals reviewed. CARDIOVASCULAR MEDICINE TESTING: Echocardiogram: 04/03/2019 CONCLUSIONS: - Technically difficult exam due to post op, suboptimal positioning and bandages/chest tubes/wound. - Exam indication: Hypotension - The left ventricle is normal in size. Left ventricular systolic function is normal. EF = 65 ? 5% (visual est.) Definity contrast used for endocardial border detection. - Study is suboptimal for assessment of pericardial effusion. Within the limitations of the study, there is no obvious pericardial effusion. Inflow velocities have no significant respiratory variation arguing against significant tamponade. - Exam was compared with the prior echocardiographic exam performed on 04/02/19.?There is no significant change. PLAN AND RECOMMENDATIONS: ASSESSMENT/PLAN: 1. ICD (implantable cardioverter-defibril lator), dual, in situ - ICD9: V45.02, ICD10: Z95.810 (primary diagnosis) - The patient underwent EP study positive for inducible ventricular tachycardia, subsequently underwent implantation of [employer] dual-chamber ICD with Dr. Kennedy on 04/12/19 for sustained ventricular tachyarrhythmia. He has been doing well from a device standpoint, he is followed by Dr. Torres at [facility] and [place] device clinic. We discussed he can continue to follow there, he does not need to follow at both locations, he is agreeable, and will follow-up as needed at the referral of Dr. Torres, patient verbalizes understanding. 2. NSVT (nonsustained ventricular tachycardia) (HCC) - ICD9: 427.1, ICD10: I47.2 - ICD in situ, see above. 3. USP current use of antiarrhythmic drug - ICD9: V58.69, ICD10: Z79.899 - History of ventricular tachycardia, continue amiodarone 200 mg daily. Return if symptoms worsen or fail to improve. Caridad Cunningham APRN.CNP [facility] Visit (AGVASACC) RIGO DIAZ ([id number]) 1950 M Date Time Provider Department 05/17/19 11:00 AM VIRGIE CAMPBELL (MIGUELITO) AGVASACC During your visit today, we recorded the following information about you: Pulse Respiration Blood pressure Weight 98/minute 16/minute 144/82 98 kg Height 1.93 m Virgie Campbell APRN.CNP, CNP 05/17/2019 12:20 PM Signed HPI: Rigo Diaz is a 68 year old male that returns to the office today for one month post-discharge follow up for NSTEMI, MV CAD s/p acute KS in 10/2017 with HAYDEN x 2 to RCA and Brilinta, then CABG x 3 (svg-lad; svg-om; svg-pda; evh) performed on 04/02/[address] Macias. ? After 7 days of Brilinta holiday?and a thorough pre-op evaluation?including vascular surgery?evaluation of left subclavian?artery?clara nosis;?pulmonary medicine consultation due to poor FEV1?in setting of current smoker of?49?pack years,?then on 04/02 he?underwent bypass [address] Macias.?Intra-Op, patient had dissection of the HUIZAR requiring replacement with vein graft to LAD.?Postop recovery in ICU was complicated by postop?vasoplegia required?fluid resuscitation;?acute postop coagulopathy?and anemia?required multiple doses of protamine a unit of PRBCs;?postop PAF/NSVT, started on?amiodarone drip and EP consult?(no interventions recommended).?He was transferred out of ICU on POD#5.?He continued to have NSVT, underwent EP study on04/12 which was positive for inducible VT,?required defib and ICD placement. Per EP's recommendations: continue Amiodarone 200 mg daily for 3 months, stop unless has VT and no driving for 6 months. He was discharged on 04/13/2019 to home with [facility]. Interval events: none Rigo Diaz reports home recovery as listed below: C/o right frontal chest, back, shoulder pain, attributed his position and possible musculoskeletal related. Episodes of dizziness or syncope: no Chest pain: no Palpitations: no BP: reviewed per home log: BP 130/74, HR 70s Tolerating diet well without changing bowel habits: good Fever, chills: no Activities at home without SOB or MCBRIDE: walks frequently without issues Post surgical pain without pain medications. Leg edema: no Sleep: good Energy: varies, good days more than bad days Subjective: Current Outpatient Medications: acetaminophen (TYLENOL) 325 mg tablet Take 2 tablets by mouth every 6 hours as needed. ascorbic acid, vitamin C, (VITAMIN C) 500 mg tablet Take 1 tablet by mouth twice daily. Take with Iron. clopidogrel (PLAVIX) 75 mg tablet Take 1 tablet by mouth once daily. Take for 1 year after surgery. ferrous sulfate 325 mg (65 mg iron) tablet Take 1 tablet by mouth twice daily with meals. Take with vitamin C magnesium oxide (MAG-OX) 400 mg (241.3 mg magnesium) tablet Take 1 tablet by mouth twice daily. amiodarone (PACERONE) 200 mg tablet Take 1 tablet by mouth once daily. atorvastatin (LIPITOR) 40 mg tablet Take 40 mg by mouth once daily. ALPHAGAN P 0.1 % drop USE 1 DROP IN THE LEFT EYE TWICE A DAY latanoprost (XALATAN) 0.005 % ophthalmic solution USE 1 DROP IN THE LEFT EYE DAILY AT BEDTIME, DISCARD AFTER 42 DAYS METOPROLOL 50 MG TAB Take one(1) tablet two(2) times daily. multivitamins w-minerals/lut(CENTRU M SILVER TAB) Take one(1) tablet daily. aspirin(ECOTRIN LOW STRENGTH 81 MG TAB) Take one(1) tablet daily. melatonin 3 mg tablet Take 1 tablet by mouth at bedtime as needed (insomnia). (Patient not taking: Reported on 04/19/2019 ) metFORMIN ER (GLUCOPHAGE XR) 500 mg 24 hr tablet Take 2 tablets by mouth daily with dinner. Follow-up with PCP for nursing home management. (Patient not taking: Reported on 05/17/2019 ) albuterol HFA (PROAIR HFA) 90 mcg/actuation inhaler Inhale 2 Puffs as instructed three times daily. Take as directed blood sugar diagnostic test strip Use with blood glucose test once daily, Insulin Dep? No (Patient not taking: Reported on 05/17/2019 ) Lancets lancets Use with blood glucose test once daily. Insulin Dep? No (Patient not taking: Reported on 05/17/2019 ) alcohol swabs padm Use with blood glucose test once daily. Insulin Dep? No (Patient not taking: Reported on 05/17/2019 ) glucose 4 gram chewable tablet Take 4 tablets by mouth as needed for Low Blood Sugar. (Patient not taking: Reported on 05/17/2019 ) Blood-Glucose Meter misc 1 Device one time only for 1 dose. Test One time a day. Blood Glucose Control, Normal soln 1 Each as directed. (Patient not taking: Reported on 05/17/2019 ) No current facility-administered medications for this visit. Patient has no known allergies. 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 - PAST SURGICAL HISTORY OF 2002 herniorrhaphy left inguinal - PAST SURGICAL HISTORY OF 1963 elbow surgery bone chips - REMOVE CATARACT, INSERT LENS,EX 2010 OD - REMOVE CATARACT, INSERT LENS,EX OS 07/23/12 OS - TRABECULECTOMY WITH SCARRING 2010 OD FAMILY HISTORY Problem Relation Age of Onset - Emphysema Father - No Ocular Disease Father - Coronary Artery Disease Mother - No Ocular Disease Mother - Macular Degen Other Social History Tobacco Use - Smoking status: Former Smoker Packs/day: 1.00 Years: 50.00 Pack years: 50.00 Types: Cigarettes - Smokeless tobacco: Never Used Substance Use Topics - Alcohol use: No - Drug use: No Review of Systems Constitutional: Negative for chills, fever, malaise/fatigue and weight loss. HENT: Negative for sore throat. Respiratory: Negative for cough, sputum production, shortness of breath and wheezing. Cardiovascular: Negative for chest pain, palpitations, orthopnea, claudication, leg swelling and PND. Gastrointestinal: Negative for abdominal pain, blood in stool, constipation, diarrhea, melena, nausea and vomiting. Genitourinary: Negative for dysuria. Musculoskeletal: Negative for falls and joint pain. Skin: No new lesions Neurological: Negative for dizziness, tingling, sensory change, focal weakness, weakness and headaches. Endo/Heme/Allergies: Does not bruise/bleed easily. Psychiatric/Behaviora l: Negative for depression. Objective: One month post- op Chest X-ray is done and reviewed today. Physical Examination: Vitals:BP 144/82 Pulse 98 Resp 16 Ht 6' 4 (1.93m) Wt 216 lb (98.0kg) SpO2 98% BMI 26.30 kg/(m2). BP w/Orthostatic Vitals Date and Time Orthostatic BP Orthostatic Pulse BP Pulse BP Position BP Site BP Cuff Size 05/17/19 1102 -- -- 144/82 98 -- -- -- Peak Flow Date and Time PF Resp 05/17/19 1102 -- 16 Last 2 Encounter Wt Readings: Date: Wt: 05/17/2019 216 lb (98 kg) 04/19/2019 217 lb (98.4 kg) Physical Exam Constitutional: He is oriented to person, place, and time and well-developed, well-nourished, and in no distress. He appears not dehydrated. He appears healthy. He does not have a sickly appearance. No distress. HENT: Head: Normocephalic. Mouth/Throat: No oropharyngeal exudate. Neck: Normal range of motion. No hepatojugular reflux and no JVD present. Carotid bruit is not present. No edema and no erythema present. Cardiovascular: Normal rate, regular rhythm, S1 normal, S2 normal, normal heart sounds and intact distal pulses. PMI is not displaced. Exam reveals no gallop, no S3, no S4, no distant heart sounds, no friction rub and no decreased pulses. No murmur heard. Pulmonary/Chest: Effort normal and breath sounds normal. No respiratory distress. He has no wheezes. He has no rhonchi. He has no rales. He exhibits no tenderness. Sternal stability is normal. Abdominal: Soft. Bowel sounds are normal. He exhibits no distension and no mass. There is no tenderness. There is no rebound and no guarding. Musculoskeletal: Normal range of motion. He exhibits no edema or tenderness. Neurological: He is alert and oriented to person, place, and time. Gait normal. Skin: Skin is warm and dry. No bruising, no lesion, no petechiae and no rash noted. He is not diaphoretic. No cyanosis or erythema. No pallor. Sternal incision is healed, well approximated with scabs and skin glue flaking off, using alcohol pads to clean off the skin glue today. No drainage, redness or foul odor. Same presentation appears on the chest tube wounds. SVG harvest site incision is healed, well approximated. No drainage, redness or foul odor. Defibrillator incision site is also healed without any signs of complications. Psychiatric: Mood and affect normal. Nursing note and vitals reviewed. Assessment and Plan: ASSESSMENT/PLAN: 1. S/P CABG x 3 - ICD9: V45.81, ICD10: Z95.1 (primary diagnosis) -c/w aspirin 81, metoprolol 50 mg BID, and Lipitor 40 mg daily - C/W Plavix 75 mg for up to a year per ACS protocol -reviewed CXR today: unremarkable -Okay to start cardiac rehabilitation at [place] -Follow-up with Dr. Torres for further cardiology management 2. NSVT (nonsustained ventricular tachycardia) (HCC) - ICD9: 427.1, ICD10: I47.2 -c/w ICD placement on 04/12, intact ICD incision site - c/w daily 200 mg amiodarone for total of 3 months -Follow Dr. Kym Fuentes to start cardiac rehabilitation 3. Acute blood loss as cause of postoperative anemia - ICD9: 285.1, ICD10: D62 -Continue vitamin C and iron supplementation along with dietary recommendations Cardiac rehabilitation: 05/20/2019 [employer] follow up appointment: already saw Dr. Torres, revisit next week PCP follow up appointment: patient to make appointment with Dr. Mcwilliams In summary, Rigo Diaz is a 68 year old male that returns to the office today for one month post-discharge follow up for NSTEMI, MV CAD s/p acute KS in 10/2017 with HAYDEN x 2 to RCA and Brilinta, then CABG x 3 (svg-lad; svg-om; svg-pda; evh) performed on 04/02/[address] Macias. ?Patient is doing exceedingly well overall after the MCABG sugery, with no major complaints. Patient is released to gradually resume normal daily activities. It's recommended that patient should start cardiac rehab from this point on. he should follow up with his ekg monitor, EP and PCP as scheduled, and only needs to be seen here on a as needed basis. He is recommended by EP no driving for 6 months, which he will check with them for clarification. Thanks. Electronically signed by Virgie Campbell APRN.CNP on May 17, 2019, 11:36 AM Virgie Campbell APRN.CNP, CNP 05/17/2019 12:02 PM Signed You have done a great job recovering from you surgery, however, there are still additional components to your remaining recovery: Driving: deferring driving permission to EP -Doctor V Rehab: Please start cardiac rehab, contacts are listed below if they haven't contact you. Rehab Contacts: AT [place] [phone] ([facility]) or [phone] ([facility]) Restrictions: Please allow time to heal, slowly increase weight bearing in a gradual fashion (5-10 lbs increment each month) over the next 2-3 months, then can gradually resume your normal activities depend on how you feel. Follow-ups: It is crucial to establish future appointments with your other providers. Please follow up with your ekg monitor , primary care doctor and your supply chain manager so that they can continue helping you with your medications and future health concerns. You are no longer needed to follow up here with the cardiac surgeons unless necessary. Please don't hesitate to contact us if you have any concerns/questions: [phone] Thanks for coming in to see me today. Virgie Campbell APRN.EMBLEM CUTTER Referring Provider: SELF [200] Allergies As of Date: 05/17/2019 (No Known Allergies) Date Reviewed: 04/19/2019 Reviewed by: Lizbeth (Rachana) Taj - Fully Assessed Reason for Visit: Post Op [174] Cmt: 3-4 week f/u. CXR 05/17/19 Primary Visit Diagnosis:S/P CABG x 3 [Z95.1] Other Visit Diagnoses:NSVT (nonsustained ventricular tachycardia) ([facility]) [I47.2] Acute blood loss as cause of postoperative anemia [D62] Prescriptions as of 05/17/2019 Sig: ACETAMINOPHEN 325 MG TABLET Take 2 tablets by mouth every* ASCORBIC ACID (VITAMIN C) 500* Take 1 tablet by mouth twice * CLOPIDOGREL 75 MG TABLET Take 1 tablet by mouth once d* FERROUS SULFATE 325 MG (65 MG* Take 1 tablet by mouth twice * MAGNESIUM OXIDE 400 MG (241.3* Take 1 tablet by mouth twice * AMIODARONE 200 MG TABLET Take 1 tablet by mouth once d* ATORVASTATIN 40 MG TABLET Take 40 mg by mouth once nadeem* ALPHAGAN P 0.1 % EYE DROPS USE 1 DROP IN THE LEFT EYE TW* LATANOPROST 0.005 % EYE DROPS USE 1 DROP IN THE LEFT EYE DA* * METOPROLOL TARTRATE 50 MG TAB* Take one(1) tablet two(2) alvino* * CENTRUM SILVER TABLET Take one(1) tablet daily. * ECOTRIN LOW STRENGTH 81 MG TA* Take one(1) tablet daily. BLOOD-GLUCOSE METER 1 Device one time only for 1 * Problem List As Of Date 05/17/2019 Noted Resolved SKIN DISORDER NOS [L98.9] INVALID FOR* Diabetes mellitus type 2, controlled, without c*INVALID FOR* More... HYPERTENSION NOS [I10] INVALID FOR* More... More... HYPERLIPIDEMIA NEC/NOS [E78.5] INVALID FOR* More... NSVT (nonsustained ventricular tachycardia) ([facility]*INVALID FOR* More... Tobacco use disorder [F17.200] INVALID FOR* More... 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 OBESITY NOS [E66.9] INVALID FOR* More... CORONARY ATHEROSCLER UNSPEC VESSEL [I25.10] INVALID FOR* More... HEARING LOSS NOS [H91.90] INVALID FOR* More... LUMBAGO [M54.5] INVALID FOR* More... PERIPH VASCULAR DIS NOS [I73.9] INVALID FOR* More... Unspecified glaucoma [H40.9] INVALID FOR*09/03/2012 More... 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 Rehab Contacts: AT [place] [phone] ([facility]) or [phone] ([facility]) Restrictions: Please allow time to heal, slowly increase weight bearing in a gradual fashion (5-10 lbs increment each month) over the next 2-3 months, then can gradually resume your normal activities depend on how you feel. Follow-ups: It is crucial to establish future appointments with your other providers. Please follow up with your ekg monitor , primary care doctor and your supply chain manager so that they can continue helping you with your medications and future health concerns. You are no longer needed to follow up here with the cardiac surgeons unless necessary. Please don't hesitate to contact us if you have any concerns/questions: [phone] Thanks for coming in to see me today. Virgie Campbell APRN.EMBLEM CUTTER Medications Discontinued During This Encounter melatonin 3 mg tablet 04/13/2019 05/17/2019 Class: OTC Route: ORAL Sig: Take 1 tablet by mouth at bedtime as needed (insomnia). Patient not taking: Reported on 04/19/2019 Disc: Course of therapy completed Blood Glucose Control, Normal soln 1 Ea* 1 04/13/2019 05/17/2019 Cmt: Please fill with brand covered by patient's insurance. Diagnosis: Type 2 diabetes mellitus without complications [E11.9] Route: Miscell. (Med.Supl.;Non-Drugs) Si Each as directed. Patient not taking: Reported on 05/17/2019 Disc: Course of therapy completed metFORMIN ER (GLUCOPHAGE XR) 500 mg * 60 t* 2 04/13/2019 05/17/2019 Route: ORAL Sig: Take 2 tablets by mouth daily with dinner. Follow-up with PCP for card lacer management. Patient not taking: Reported on 05/17/2019 Disc: Course of therapy completed glucose 4 gram chewable tablet 10 t* 5 04/13/2019 05/17/2019 Cmt: Diagnosis: Type 2 diabetes mellitus without complications [E11.9] Route: ORAL Sig: Take 4 tablets by mouth as needed for Low Blood Sugar. Patient not taking: Reported on 05/17/2019 Disc: Course of therapy completed blood sugar diagnostic test strip 100 * 5 04/13/2019 05/17/2019 Cmt: Diagnosis: Type 2 diabetes mellitus without complications [E11.9] Sig: Use with blood glucose test once daily, Insulin Dep? No Patient not taking: Reported on 05/17/2019 Disc: Course of therapy completed alcohol swabs padm 100 * 5 04/13/2019 05/17/2019 Cmt: Diagnosis: Type 2 diabetes mellitus without complications [E11.9] Sig: Use with blood glucose test once daily. Insulin Dep? No Patient not taking: Reported on 05/17/2019 Disc: Course of therapy completed Lancets lancets 100 * 5 04/13/2019 05/17/2019 Cmt: Diagnosis: Type 2 diabetes mellitus without complications [E11.9] Sig: Use with blood glucose test once daily. Insulin Dep? No Patient not taking: Reported on 05/17/2019 Disc: Course of therapy completed albuterol HFA (PROAIR HFA) 90 mcg/ac* 0.02* 0 04/13/2019 05/17/2019 Cmt: Generic or brand: dispense inhaler preferred by patient/insurance unless ANN flag is selected. Route: INHALATION Sig: Inhale 2 Puffs as instructed three times daily. Take as directed Disc: Course of therapy completed Follow-up and Disposition History Recorded Encounter Status:Closed by VIRGIE CAMPBELL CNP on 05/17/19 [facility] PROGRESSon 05-17-2019 PROGRESS HNO ID: [id number] Author: Virgie (Miguelito) MIGUELITO Campbell Service: ? Author Type: Nurse Practitioner Type: Progress Notes Filed: 05/17/2019 12:20 PM Note Text: HPI: Rigo Diaz is a 68 year old male that returns to the office today for one month post-discharge follow up for NSTEMI, MV CAD s/p acute KS in 10/2017 with HAYDEN x 2 to RCA and Brilinta, then CABG x 3 (svg-lad; svg-om; svg-pda; evh) performed on 04/02/[address] Macias. ? After 7 days of Brilinta holiday?and a thorough pre-op evaluation?including vascular surgery?evaluation of left subclavian?artery?clara nosis;?pulmonary medicine consultation due to poor FEV1?in setting of current smoker of?49?pack years,?then on 04/02 he?underwent bypass [address] Macias.?Intra-Op, patient had dissection of the HUIZAR requiring replacement with vein graft to LAD.?Postop recovery in ICU was complicated by postop?vasoplegia required?fluid resuscitation;?acute postop coagulopathy?and anemia?required multiple doses of protamine a unit of PRBCs;?postop PAF/NSVT, started on?amiodarone drip and EP consult?(no interventions recommended).?He was transferred out of ICU on POD#5.?He continued to have NSVT, underwent EP study on04/12 which was positive for inducible VT,?required defib and ICD placement. Per EP's recommendations: continue Amiodarone 200 mg daily for 3 months, stop unless has VT and no driving for 6 months. He was discharged on 04/13/2019 to home with [facility]. Interval events: none Rigo Buchananson reports home recovery as listed below: C/o right frontal chest, back, shoulder pain, attributed his position and possible musculoskeletal related. Episodes of dizziness or syncope: no Chest pain: no Palpitations: no BP: reviewed per home log: BP 130/74, HR 70s Tolerating diet well without changing bowel habits: good Fever, chills: no Activities at home without SOB or MCBRIDE: walks frequently without issues Post surgical pain without pain medications. Leg edema: no Sleep: good Energy: varies, good days more than bad days Subjective: Current Outpatient Medications: acetaminophen (TYLENOL) 325 mg tablet Take 2 tablets by mouth every 6 hours as needed. ascorbic acid, vitamin C, (VITAMIN C) 500 mg tablet Take 1 tablet by mouth twice daily. Take with Iron. clopidogrel (PLAVIX) 75 mg tablet Take 1 tablet by mouth once daily. Take for 1 year after surgery. ferrous sulfate 325 mg (65 mg iron) tablet Take 1 tablet by mouth twice daily with meals. Take with vitamin C magnesium oxide (MAG-OX) 400 mg (241.3 mg magnesium) tablet Take 1 tablet by mouth twice daily. amiodarone (PACERONE) 200 mg tablet Take 1 tablet by mouth once daily. atorvastatin (LIPITOR) 40 mg tablet Take 40 mg by mouth once daily. ALPHAGAN P 0.1 % drop USE 1 DROP IN THE LEFT EYE TWICE A DAY latanoprost (XALATAN) 0.005 % ophthalmic solution USE 1 DROP IN THE LEFT EYE DAILY AT BEDTIME, DISCARD AFTER 42 DAYS METOPROLOL 50 MG TAB Take one(1) tablet two(2) times daily. multivitamins w-minerals/lut(CENTRU M SILVER TAB) Take one(1) tablet daily. aspirin(ECOTRIN LOW STRENGTH 81 MG TAB) Take one(1) tablet daily. melatonin 3 mg tablet Take 1 tablet by mouth at bedtime as needed (insomnia). (Patient not taking: Reported on 04/19/2019 ) metFORMIN ER (GLUCOPHAGE XR) 500 mg 24 hr tablet Take 2 tablets by mouth daily with dinner. Follow-up with PCP for nursing home management. (Patient not taking: Reported on 05/17/2019 ) albuterol HFA (PROAIR HFA) 90 mcg/actuation inhaler Inhale 2 Puffs as instructed three times daily. Take as directed blood sugar diagnostic test strip Use with blood glucose test once daily, Insulin Dep? No (Patient not taking: Reported on 05/17/2019 ) Lancets lancets Use with blood glucose test once daily. Insulin Dep? No (Patient not taking: Reported on 05/17/2019 ) alcohol swabs padm Use with blood glucose test once daily. Insulin Dep? No (Patient not taking: Reported on 05/17/2019 ) glucose 4 gram chewable tablet Take 4 tablets by mouth as needed for Low Blood Sugar. (Patient not taking: Reported on 05/17/2019 ) Blood-Glucose Meter misc 1 Device one time only for 1 dose. Test One time a day. Blood Glucose Control, Normal soln 1 Each as directed. (Patient not taking: Reported on 05/17/2019 ) No current facility-administered medications for this visit. Patient has no known allergies. 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 - PAST SURGICAL HISTORY OF 2002 herniorrhaphy left inguinal - PAST SURGICAL HISTORY OF 1963 elbow surgery bone chips - REMOVE CATARACT, INSERT LENS,EX 2010 OD - REMOVE CATARACT, INSERT LENS,EX OS 07/23/12 OS - TRABECULECTOMY WITH SCARRING 2010 OD FAMILY HISTORY Problem Relation Age of Onset - Emphysema Father - No Ocular Disease Father - Coronary Artery Disease Mother - No Ocular Disease Mother - Macular Degen Other Social History Tobacco Use - Smoking status: Former Smoker Packs/day: 1.00 Years: 50.00 Pack years: 50.00 Types: Cigarettes - Smokeless tobacco: Never Used Substance Use Topics - Alcohol use: No - Drug use: No Review of Systems Constitutional: Negative for chills, fever, malaise/fatigue and weight loss. HENT: Negative for sore throat. Respiratory: Negative for cough, sputum production, shortness of breath and wheezing. Cardiovascular: Negative for chest pain, palpitations, orthopnea, claudication, leg swelling and PND. Gastrointestinal: Negative for abdominal pain, blood in stool, constipation, diarrhea, melena, nausea and vomiting. Genitourinary: Negative for dysuria. Musculoskeletal: Negative for falls and joint pain. Skin: No new lesions Neurological: Negative for dizziness, tingling, sensory change, focal weakness, weakness and headaches. Endo/Heme/Allergies: Does not bruise/bleed easily. Psychiatric/Behaviora l: Negative for depression. Objective: One month post- op Chest X-ray is done and reviewed today. Physical Examination: Vitals:BP 144/82 Pulse 98 Resp 16 Ht 6' 4 (1.93m) Wt 216 lb (98.0kg) SpO2 98% BMI 26.30 kg/(m2). BP w/Orthostatic Vitals Date and Time Orthostatic BP Orthostatic Pulse BP Pulse BP Position BP Site BP Cuff Size 05/17/19 1102 -- -- 144/82 98 -- -- -- Peak Flow Date and Time PF Resp 05/17/19 1102 -- 16 Last 2 Encounter Wt Readings: Date: Wt: 05/17/2019 216 lb (98 kg) 04/19/2019 217 lb (98.4 kg) Physical Exam Constitutional: He is oriented to person, place, and time and well-developed, well-nourished, and in no distress. He appears not dehydrated. He appears healthy. He does not have a sickly appearance. No distress. HENT: Head: Normocephalic. Mouth/Throat: No oropharyngeal exudate. Neck: Normal range of motion. No hepatojugular reflux and no JVD present. Carotid bruit is not present. No edema and no erythema present. Cardiovascular: Normal rate, regular rhythm, S1 normal, S2 normal, normal heart sounds and intact distal pulses. PMI is not displaced. Exam reveals no gallop, no S3, no S4, no distant heart sounds, no friction rub and no decreased pulses. No murmur heard. Pulmonary/Chest: Effort normal and breath sounds normal. No respiratory distress. He has no wheezes. He has no rhonchi. He has no rales. He exhibits no tenderness. Sternal stability is normal. Abdominal: Soft. Bowel sounds are normal. He exhibits no distension and no mass. There is no tenderness. There is no rebound and no guarding. Musculoskeletal: Normal range of motion. He exhibits no edema or tenderness. Neurological: He is alert and oriented to person, place, and time. Gait normal. Skin: Skin is warm and dry. No bruising, no lesion, no petechiae and no rash noted. He is not diaphoretic. No cyanosis or erythema. No pallor. Sternal incision is healed, well approximated with scabs and skin glue flaking off, using alcohol pads to clean off the skin glue today. No drainage, redness or foul odor. Same presentation appears on the chest tube wounds. SVG harvest site incision is healed, well approximated. No drainage, redness or foul odor. Defibrillator incision site is also healed without any signs of complications. Psychiatric: Mood and affect normal. Nursing note and vitals reviewed. Assessment and Plan: ASSESSMENT/PLAN: 1. S/P CABG x 3 - ICD9: V45.81, ICD10: Z95.1 (primary diagnosis) -c/w aspirin 81, metoprolol 50 mg BID, and Lipitor 40 mg daily - C/W Plavix 75 mg for up to a year per ACS protocol -reviewed CXR today: unremarkable -Okay to start cardiac rehabilitation at [place] -Follow-up with Dr. Torres for further cardiology management 2. NSVT (nonsustained ventricular tachycardia) (HCC) - ICD9: 427.1, ICD10: I47.2 -c/w ICD placement on 04/12, intact ICD incision site - c/w daily 200 mg amiodarone for total of 3 months -Follow Dr. Mejía -Radha to start cardiac rehabilitation 3. Acute blood loss as cause of postoperative anemia - ICD9: 285.1, ICD10: D62 -Continue vitamin C and iron supplementation along with dietary recommendations Cardiac rehabilitation: 05/20/2019 [employer] follow up appointment: already saw Dr. Torres, revisit next week PCP follow up appointment: patient to make appointment with Dr. Mcwilliams In summary, Rigo Diaz is a 68 year old male that returns to the office today for one month post-discharge follow up for NSTEMI, MV CAD s/p acute [place] in 10/2017 with HAYDEN x 2 to RCA and Brilinta, then CABG x 3 (svg-lad; svg-om; svg-pda; evh) performed on 04/02/[address] Macias. ?Patient is doing exceedingly well overall after the MCABG sugery, with no major complaints. Patient is released to gradually resume normal daily activities. It's recommended that patient should start cardiac rehab from this point on. he should follow up with his ekg monitor, EP and PCP as scheduled, and only needs to be seen here on a as needed basis. He is recommended by EP no driving for 6 months, which he will check with them for clarification. Thanks. Electronically signed by Virgie Campbell APRN.EMBLEM CUTTER on May 17, 2019, 11:36 AM Normal [facility] XR CHEST 2V FRONTAL/LATon XR CHEST 2V FRONTAL/LAT * * *Final Repor t* * * DATE OF EXAM: May 17 2019 10:02AM [id number] - XR CHEST 2V FRONTAL/LAT / PROCEDURE REASON: multiple diagnoses * * * * Physician Interpretation * * * * EXAMINATION: CHEST RADIOGRAPH (2 VIEW FRONTAL & LATERAL) CLINICAL HISTORY: The patient is a 68-year-old male with previous triple bypass coronary artery grafting and more recent placement of cardiac pacemaker. MQ: XC2_5 Comparison: April 13 and April 08, 2019 RESULT: Lines, tubes, and devices: The cardiac pacemaker and its 2 leads are present but the ventricular lead appears to have pulled back slightly and it has a inferior dip in the bottom of the atrium. Sternal wires and mediastinal clips are unchanged. Lungs and pleura: Previous pleural effusions have resolved. There is some platelike atelectasis in the right lung base. There are no consolidations or nodules Cardiomediastinal silhouette: Normal cardiomediastinal silhouette. Other: No other abnormality is identified. IMPRESSION: The right ventricular pacemaker lead has changed position slightly. Previous pleural effusions have resolved and other than some residual right lower hemithorax atelectasis there is no other active disease in the chest. These findings were phoned to Dr. Lara on May 21, 2019 at 8:04 AM. Technical Documentation Specialist: MAXIMILIANO Transcribe Date/Time: May 21 2019 7:43A Dictated by : SHREYAS SPICER MD This examination was interpreted and the report reviewed and electronically signed by: SHREYAS SPICER MD on May 21 2019 8:05AM EST Normal [facility] CNOVon 04-19-2019 [facility] Office Visit (AGVASACC) RIGO DIAZ ([id number]) 1950 M Date Time Provider Department 04/19/19 11:00 AM VIRGIE CAMPBELL (MIGUELITO) VASACC During your visit today, we recorded the following information about you: Pulse Respiration Blood pressure Weight 87/minute 20/minute 80/52 98.4 kg Height 1.93 m Virgie Campbell APRN.MIGUELITO LEGER 04/19/2019 4:45 PM Signed HPI: Rigo Diaz is a 68 year old male that returns to the office today for one week post-discharge follow up for NSTEMI, MV CAD s/p acute KS in 10/2017 with hayden x 2 to rca?and Brilinta, then CABG x 3 (svg-lad; svg-om; svg-pda; evh) performed on 04/02/[address] Macias. After 7 days of Brilinta holiday and a thorough pre-op evaluation including vascular surgery evaluation of left subclavian artery stenosis;?pulmonary medicine consultation due to poor FEV1 in setting of current smoker of?49 pack years,?then on 04/02 he underwent bypass ?[address] Macias.?Intra-Op, patient had dissection of the HUIZAR requiring replacement with vein graft to LAD.?Postop recovery in ICU was complicated by postop?vasoplegia required?fluid resuscitation;?acute postop coagulopathy and anemia required multiple doses of protamine a unit of PRBCs;?postop PAF/NSVT, started on?amiodarone drip and EP consult?(no interventions recommended). He was transferred out of ICU on POD#5.?He continued to have NSVT, underwent EP study on04/12 which was positive for inducible VT, required defib and ICD placement. Per EP's recommendations: continue Amiodarone 200 mg daily for 3 months, stop unless has VT and no driving for 6 months. He was discharged on 04/13/2019 to home with [facility]. Interval events: none Rigo Buchananson reports home recovery as listed below: Episodes of dizziness or syncope: no Chest pain: no Palpitations: no BP: reviewed per home log: Average BP 120/70, HR 70-80 from home Tolerating diet well without changing bowel habits: yes Fever, chills: no Activities at home with/without SOB or MCBRIDE: walks at home without issues, but not very much yet Post surgical pain without pain medications. Leg edema: gone, some left on the LLL Sleep: not the best Energy: it is ok Subjective: Current Outpatient Medications: acetaminophen (TYLENOL) 325 mg tablet Take 2 tablets by mouth every 6 hours as needed. ascorbic acid, vitamin C, (VITAMIN C) 500 mg tablet Take 1 tablet by mouth twice daily. Take with Iron. clopidogrel (PLAVIX) 75 mg tablet Take 1 tablet by mouth once daily. Take for 1 year after surgery. ferrous sulfate 325 mg (65 mg iron) tablet Take 1 tablet by mouth twice daily with meals. Take with vitamin C furosemide (LASIX) 20 mg tablet Take 1 tablet by mouth once daily for 5 doses. magnesium oxide (MAG-OX) 400 mg (241.3 mg magnesium) tablet Take 1 tablet by mouth twice daily. metFORMIN ER (GLUCOPHAGE XR) 500 mg 24 hr tablet Take 2 tablets by mouth daily with dinner. Follow-up with PCP for nursing home management. oxyCODONE-acetaminoph en (PERCOCET) 5-325 mg tablet Take 1 tablet by mouth every 6 hours as needed for up to 7 days. amiodarone (PACERONE) 200 mg tablet Take 1 tablet by mouth once daily. albuterol HFA (PROAIR HFA) 90 mcg/actuation inhaler Inhale 2 Puffs as instructed three times daily. Take as directed blood sugar diagnostic test strip Use with blood glucose test once daily, Insulin Dep? No Lancets lancets Use with blood glucose test once daily. Insulin Dep? No alcohol swabs padm Use with blood glucose test once daily. Insulin Dep? No glucose 4 gram chewable tablet Take 4 tablets by mouth as needed for Low Blood Sugar. Blood-Glucose Meter misc 1 Device one time only for 1 dose. Test One time a day. Blood Glucose Control, Normal soln 1 Each as directed. atorvastatin (LIPITOR) 40 mg tablet Take 40 mg by mouth once daily. ALPHAGAN P 0.1 % drop USE 1 DROP IN THE LEFT EYE TWICE A DAY latanoprost (XALATAN) 0.005 % ophthalmic solution USE 1 DROP IN THE LEFT EYE DAILY AT BEDTIME, DISCARD AFTER 42 DAYS METOPROLOL 50 MG TAB Take one(1) tablet two(2) times daily. multivitamins w-minerals/lut(CENTRU M SILVER TAB) Take one(1) tablet daily. aspirin(ECOTRIN LOW STRENGTH 81 MG TAB) Take one(1) tablet daily. melatonin 3 mg tablet Take 1 tablet by mouth at bedtime as needed (insomnia). (Patient not taking: Reported on 04/19/2019 ) polyethylene glycol 3350 (MIRALAX, GLYCOLAX) 17 gram packet Take 1 Packet by mouth once daily. (Patient not taking: Reported on 04/19/2019 ) senna-docusate (SENNA-S) 8.6-50 mg per tablet Take 1 tablet by mouth twice daily. (Patient not taking: Reported on 04/19/2019 ) No current facility-administered medications for this visit. Patient has no known allergies. 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 - PAST SURGICAL HISTORY OF 2002 herniorrhaphy left inguinal - PAST SURGICAL HISTORY OF 1963 elbow surgery bone chips - REMOVE CATARACT, INSERT LENS,EX 2010 OD - REMOVE CATARACT, INSERT LENS,EX OS 07/23/12 OS - TRABECULECTOMY WITH SCARRING 2010 OD FAMILY HISTORY Problem Relation Age of Onset - Emphysema Father - No Ocular Disease Father - Coronary Artery Disease Mother - No Ocular Disease Mother - Macular Degen Other Social History Tobacco Use - Smoking status: Current Every Day Smoker Packs/day: 1.00 Years: 50.00 Pack years: 50.00 Types: Cigarettes - Smokeless tobacco: Never Used Substance Use Topics - Alcohol use: No - Drug use: No Review of Systems Constitutional: Negative for chills, fever, malaise/fatigue and weight loss. HENT: Negative for sore throat. Respiratory: Positive for sputum production. Negative for cough, shortness of breath and wheezing. Normal for patient Cardiovascular: Negative for chest pain, palpitations, orthopnea, claudication, leg swelling and PND. Gastrointestinal: Negative for abdominal pain, blood in stool, constipation, diarrhea, melena, nausea and vomiting. Genitourinary: Negative for dysuria. Musculoskeletal: Negative for falls and joint pain. Skin: No new lesions Neurological: Negative for dizziness, tingling, sensory change, focal weakness, weakness and headaches. Endo/Heme/Allergies: Does not bruise/bleed easily. Psychiatric/Behaviora l: Negative for depression. The patient has insomnia. Objective: Physical Examination: Vitals:BP 80/52 Pulse 87 Resp 20 Ht 6' 4 (1.93m) Wt 217 lb (98.4kg) SpO2 97% BMI 26.43 kg/(m2). BP w/Orthostatic Vitals Date and Time Orthostatic BP Orthostatic Pulse BP Pulse BP Position BP Site BP Cuff Size 04/19/19 1119 -- -- 80/52 -- -- Left Arm -- 04/19/19 1118 -- -- 84/56 -- -- Left Arm -- 04/19/19 1117 -- -- 140/80 87 -- Right Arm -- Peak Flow Date and Time PF Resp 04/19/19 1117 -- 20 Last 2 Encounter Wt Readings: Date: Wt: 04/19/2019 217 lb (98.4 kg) 03/25/2019 225 lb (102.1 kg) Physical Exam Constitutional: He is oriented to person, place, and time and well-developed, well-nourished, and in no distress. He appears not dehydrated. He appears healthy. He does not have a sickly appearance. No distress. HENT: Head: Normocephalic. Mouth/Throat: No oropharyngeal exudate. Neck: Normal range of motion. No hepatojugular reflux and no JVD present. Carotid bruit is not present. No edema and no erythema present. Cardiovascular: Normal rate, regular rhythm, S1 normal, S2 normal, normal heart sounds and intact distal pulses. PMI is not displaced. Exam reveals no gallop, no S3, no S4, no distant heart sounds, no friction rub and no decreased pulses. No murmur heard. Pulmonary/Chest: Effort normal and breath sounds normal. No respiratory distress. He has no wheezes. He has no rhonchi. He has no rales. He exhibits no tenderness. Sternal stability is normal. Abdominal: Soft. Bowel sounds are normal. He exhibits no distension and no mass. There is no tenderness. There is no rebound and no guarding. Musculoskeletal: Normal range of motion. He exhibits no edema or tenderness. Neurological: He is alert and oriented to person, place, and time. Gait normal. Skin: Skin is warm and dry. No bruising, no lesion, no petechiae and no rash noted. He is not diaphoretic. No cyanosis or erythema. No pallor. Sternal incision is healing, well approximated with scabs and skin glue flaking off. No drainage, redness or foul odor. Same presentation appears on the chest tube wounds. SVG harvest site incision is healing, well approximated with scabs and skin glue flaking off. No drainage, redness or foul odor. ICD incision site is covered with sterile strips, intact and dry, no signs of infections/complicati ons: such as hematoma. Psychiatric: Mood and affect normal. Nursing note and vitals reviewed. Assessment and Plan: ASSESSMENT/PLAN: 1. S/P CABG x 3 - ICD9: V45.81, ICD10: Z95.1 (primary diagnosis) - c/w aspirin 81, metoprolol 50 mg BID, and Lipitor 40 mg daily - C/W Plavix 75 mg for up to a year per ACS protocol - XR CHEST 2V FRONTAL/LAT - CARDIAC REHAB II OUTPT ([place], [place] [facility] - f/u in 3-4 weeks for 1 month check 2. NSVT (nonsustained ventricular tachycardia) (HCC) - ICD9: 427.1, ICD10: I47.2 - Inducible VT per EP study, s/p ICD placement on 10/4 - intact ICD insertion site -C/W amiodarone 200 mg daily for 3 months, stop unless has VT -No driving for 6 months - CARDIAC REHAB II OUTPT ([place], [place]) 3. Acute blood loss as cause of postoperative anemia - ICD9: 285.1, ICD10: D62 - C/W vitamin C and iron supplementation 4. Essential hypertension - ICD9: 401.9, ICD10: I10 - good control - Continue current medication(s) - Recommended regular aerobic exercise. - Recommend home blood pressure monitoring, to bring results in on next visit - Goal of BP <130/80 [employer] follow up appointment: Dr. Torres In very near future per patient PCP follow up appointment: has an appointment with Dr. Mcwilliams In summary, Rigo Diaz is a 68 year old male that returns to the office today for one week post-discharge follow up for NSTEMI, MV CAD s/p acute KS in 10/2017 with hayden x 2 to rca?and Brilinta, then CABG x 3 (svg-lad; svg-om; svg-pda; evh) performed on 04/02/[address] Macias. Patient is doing well overall after the MCABG sugery, with no major complaints. We would like to have patient follow up in 3-4 weeks with CXR order, we would also like to discuss about starting cardiac rehab at the next visit. Electronically signed by Virgie Campbell APRN.CNP on April 19, 2019, 11:48 AM Virgie Campbell APRN.CNP, MIGUELITO 04/19/2019 12:10 PM Signed Weight: Please continue monitoring daily weight; Activity:Continue gradual increase in activities as tolerated; Diet: Heart healthy diet with good protein intake; green leafy vegetable, and 2 L fluid Devices: Wear supportive stockings until leg swelling improved; posthorax vest (for 1 month) during daytime and off at nighttime; Restrictions: Continue the weight limit to less than 10 lbs (for one month), and no driving until cleared by your providers; Advice: please change position slowly to prevent fall due to dizziness; Upcoming appointments: Please follow up back here in 3-4 weeks with checks x-ray prior to that appointment Please make appointment with Dr. Kidd : [phone] in 3 months Please make cardiology appointment in 4-6 weeks Please make primary care appointment in 4-6 weeks Thanks for coming in to see me today. Please call us if you have any concerns/questions: [phone] Virgie Campbell APRN.MIGUELITO Referring Provider: SELF [[id number]] Allergies As of Date: 04/19/2019 (No Known Allergies) Date Reviewed: 04/19/2019 Reviewed by: Lizbeth (Rachana) Taj - Fully Assessed Reason for Visit: Post Op [174] Cmt: 04/02/19 CABG x 3 JL Primary Visit Diagnosis:S/P CABG x 3 [Z95.1] Other Visit Diagnoses:NSVT (nonsustained ventricular tachycardia) ([facility]) [I47.2] Acute blood loss as cause of postoperative anemia [D62] Essential hypertension [I10] Order(s):XR CHEST 2V FRONTAL/LAT [[id number]] Order #: [id number] FUTURE CARDIAC REHAB II OUT ([place], [place]) [[id number]] Order #: [id number]: 1 Prescriptions as of 04/19/2019 Sig: ACETAMINOPHEN 325 MG TABLET Take 2 tablets by mouth every* ASCORBIC ACID (VITAMIN C) 500* Take 1 tablet by mouth twice * CLOPIDOGREL 75 MG TABLET Take 1 tablet by mouth once d* FERROUS SULFATE 325 MG (65 MG* Take 1 tablet by mouth twice * MAGNESIUM OXIDE 400 MG (241.3* Take 1 tablet by mouth twice * METFORMIN ER 500 MG TABLET,EX* Take 2 tablets by mouth daily* OXYCODONE-ACETAMINOPH EN 5 MG-* Take 1 tablet by mouth every * AMIODARONE 200 MG TABLET Take 1 tablet by mouth once d* ALBUTEROL SULFATE HFA 90 MCG/* Inhale 2 Puffs as instructed * BLOOD SUGAR DIAGNOSTIC STRIPS Use with blood glucose test o* LANCETS Use with blood glucose test o* ALCOHOL SWABS Use with blood glucose test o* GLUCOSE 4 GRAM CHEWABLE TABLET Take 4 tablets by mouth as ne* BLOOD-GLUCOSE METER 1 Device one time only for 1 * BLOOD GLUCOSE CONTROL, NORMAL* 1 Each as directed. ATORVASTATIN 40 MG TABLET Take 40 mg by mouth once nadeem* ALPHAGAN P 0.1 % EYE DROPS USE 1 DROP IN THE LEFT EYE TW* LATANOPROST 0.005 % EYE DROPS USE 1 DROP IN THE LEFT EYE DA* * METOPROLOL TARTRATE 50 MG TAB* Take one(1) tablet two(2) alvino* * CENTRUM SILVER TABLET Take one(1) tablet daily. * ECOTRIN LOW STRENGTH 81 MG TA* Take one(1) tablet daily. MELATONIN 3 MG TABLET Take 1 tablet by mouth at bed* Patient not taking: Reported on 04/19/2019 Problem List As Of Date 04/19/2019 Noted Resolved SKIN DISORDER NOS [L98.9] INVALID FOR* Diabetes mellitus type 2, controlled, without c*INVALID FOR* More... HYPERTENSION NOS [I10] INVALID FOR* More... More... HYPERLIPIDEMIA NEC/NOS [E78.5] INVALID FOR* More... NSVT (nonsustained ventricular tachycardia) (HC*INVALID FOR* More... Tobacco use disorder [F17.200] INVALID FOR* More... 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 OBESITY NOS [E66.9] INVALID FOR* More... CORONARY ATHEROSCLER UNSPEC VESSEL [I25.10] INVALID FOR* More... HEARING LOSS NOS [H91.90] INVALID FOR* More... LUMBAGO [M54.5] INVALID FOR* More... PERIPH VASCULAR DIS NOS [I73.9] INVALID FOR* More... Unspecified glaucoma [H40.9] INVALID FOR*09/03/2012 More... 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*INVALID FOR* NSTEMI (non-ST elevated myocardial infarction) *INVALID FOR*03/30/2019 S/P CABG x 3 [Z95.1] INVALID FOR* Other instructions from your clinician: Weight: Please continue monitoring daily weight; Activity:Continue gradual increase in activities as tolerated; Diet: Heart healthy diet with good protein intake; green leafy vegetable, and 2 L fluid Devices: Wear supportive stockings until leg swelling improved; posthorax vest (for 1 month) during daytime and off at nighttime; Restrictions: Continue the weight limit to less than 10 lbs (for one month), and no driving until cleared by your providers; Advice: please change position slowly to prevent fall due to dizziness; Upcoming appointments: Please follow up back here in 3-4 weeks with checks x-ray prior to that appointment Please make appointment with Dr. Kidd : [phone] in 3 months Please make cardiology appointment in 4-6 weeks Please make primary care appointment in 4-6 weeks Thanks for coming in to see me today. Please call us if you have any concerns/questions: [phone] Virgie Campbell APRN.CNP Medications Discontinued During This Encounter polyethylene glycol 3350 (MIRALAX, G* 04/13/2019 04/19/2019 Class: OTC Route: ORAL Sig: Take 1 Packet by mouth once daily. Patient not taking: Reported on 04/19/2019 Disc: Course of therapy completed senna-docusate (SENNA-S) 8.6-50 mg p* 04/13/2019 04/19/2019 Class: OTC Route: ORAL Sig: Take 1 tablet by mouth twice daily. Patient not taking: Reported on 04/19/2019 Disc: Course of therapy completed furosemide (LASIX) 20 mg tablet 5 ta* 0 04/13/2019 04/19/2019 Route: ORAL Sig: Take 1 tablet by mouth once daily for 5 doses. Disc: Course of therapy completed Disposition: Return in about 3 weeks (around 05/10/2019) for 1 month post op visit with chest x-ray, chest x-ray on day of visit (prior to visit). Follow-up and Disposition History Recorded Encounter Status:Closed by VIRGIE CAMPBELL CNP on 04/19/19 [facility] PROGRESSon 04-19-2019 PROGRESS HNO ID: [id number] Author: Virgie (Miguelito) MIGUELITO Campbell Service: ? Author Type: Nurse Practitioner Type: Progress Notes Filed: 04/19/2019 4:45 PM Note Text: HPI: Rigo Diaz is a 68 year old male that returns to the office today for one week post-discharge follow up for NSTEMI, MV CAD s/p acute KS in 10/2017 with hayden x 2 to rca?and Brilinta, then CABG x 3 (svg-lad; svg-om; svg-pda; evh) performed on 04/02/[address] Macias. After 7 days of Brilinta holiday and a thorough pre-op evaluation including vascular surgery evaluation of left subclavian artery stenosis;?pulmonary medicine consultation due to poor FEV1 in setting of current smoker of?49 pack years,?then on 04/02 he underwent bypass ?[address] Macias.?Intra-Op, patient had dissection of the HUIZAR requiring replacement with vein graft to LAD.?Postop recovery in ICU was complicated by postop?vasoplegia required?fluid resuscitation;?acute postop coagulopathy and anemia required multiple doses of protamine a unit of PRBCs;?postop PAF/NSVT, started on?amiodarone drip and EP consult?(no interventions recommended). He was transferred out of ICU on POD#5.?He continued to have NSVT, underwent EP study on04/12 which was positive for inducible VT, required defib and ICD placement. Per EP's recommendations: continue Amiodarone 200 mg daily for 3 months, stop unless has VT and no driving for 6 months. He was discharged on 04/13/2019 to home with [facility]. Interval events: none Rigo Diaz reports home recovery as listed below: Episodes of dizziness or syncope: no Chest pain: no Palpitations: no BP: reviewed per home log: Average BP 120/70, HR 70-80 from home Tolerating diet well without changing bowel habits: yes Fever, chills: no Activities at home with/without SOB or MCBRIDE: walks at home without issues, but not very much yet Post surgical pain without pain medications. Leg edema: gone, some left on the LLL Sleep: not the best Energy: it is ok Subjective: Current Outpatient Medications: acetaminophen (TYLENOL) 325 mg tablet Take 2 tablets by mouth every 6 hours as needed. ascorbic acid, vitamin C, (VITAMIN C) 500 mg tablet Take 1 tablet by mouth twice daily. Take with Iron. clopidogrel (PLAVIX) 75 mg tablet Take 1 tablet by mouth once daily. Take for 1 year after surgery. ferrous sulfate 325 mg (65 mg iron) tablet Take 1 tablet by mouth twice daily with meals. Take with vitamin C furosemide (LASIX) 20 mg tablet Take 1 tablet by mouth once daily for 5 doses. magnesium oxide (MAG-OX) 400 mg (241.3 mg magnesium) tablet Take 1 tablet by mouth twice daily. metFORMIN ER (GLUCOPHAGE XR) 500 mg 24 hr tablet Take 2 tablets by mouth daily with dinner. Follow-up with PCP for card lacer management. oxyCODONE-acetaminoph en (PERCOCET) 5-325 mg tablet Take 1 tablet by mouth every 6 hours as needed for up to 7 days. amiodarone (PACERONE) 200 mg tablet Take 1 tablet by mouth once daily. albuterol HFA (PROAIR HFA) 90 mcg/actuation inhaler Inhale 2 Puffs as instructed three times daily. Take as directed blood sugar diagnostic test strip Use with blood glucose test once daily, Insulin Dep? No Lancets lancets Use with blood glucose test once daily. Insulin Dep? No alcohol swabs padm Use with blood glucose test once daily. Insulin Dep? No glucose 4 gram chewable tablet Take 4 tablets by mouth as needed for Low Blood Sugar. Blood-Glucose Meter misc 1 Device one time only for 1 dose. Test One time a day. Blood Glucose Control, Normal soln 1 Each as directed. atorvastatin (LIPITOR) 40 mg tablet Take 40 mg by mouth once daily. ALPHAGAN P 0.1 % drop USE 1 DROP IN THE LEFT EYE TWICE A DAY latanoprost (XALATAN) 0.005 % ophthalmic solution USE 1 DROP IN THE LEFT EYE DAILY AT BEDTIME, DISCARD AFTER 42 DAYS METOPROLOL 50 MG TAB Take one(1) tablet two(2) times daily. multivitamins w-minerals/lut(CENTRU M SILVER TAB) Take one(1) tablet daily. aspirin(ECOTRIN LOW STRENGTH 81 MG TAB) Take one(1) tablet daily. melatonin 3 mg tablet Take 1 tablet by mouth at bedtime as needed (insomnia). (Patient not taking: Reported on 04/19/2019 ) polyethylene glycol 3350 (MIRALAX, GLYCOLAX) 17 gram packet Take 1 Packet by mouth once daily. (Patient not taking: Reported on 04/19/2019 ) senna-docusate (SENNA-S) 8.6-50 mg per tablet Take 1 tablet by mouth twice daily. (Patient not taking: Reported on 04/19/2019 ) No current facility-administered medications for this visit. Patient has no known allergies. 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 - PAST SURGICAL HISTORY OF 2002 herniorrhaphy left inguinal - PAST SURGICAL HISTORY OF 1963 elbow surgery bone chips - REMOVE CATARACT, INSERT LENS,EX 2010 OD - REMOVE CATARACT, INSERT LENS,EX OS 07/23/12 OS - TRABECULECTOMY WITH SCARRING 2010 OD FAMILY HISTORY Problem Relation Age of Onset - Emphysema Father - No Ocular Disease Father - Coronary Artery Disease Mother - No Ocular Disease Mother - Macular Degen Other Social History Tobacco Use - Smoking status: Current Every Day Smoker Packs/day: 1.00 Years: 50.00 Pack years: 50.00 Types: Cigarettes - Smokeless tobacco: Never Used Substance Use Topics - Alcohol use: No - Drug use: No Review of Systems Constitutional: Negative for chills, fever, malaise/fatigue and weight loss. HENT: Negative for sore throat. Respiratory: Positive for sputum production. Negative for cough, shortness of breath and wheezing. Normal for patient Cardiovascular: Negative for chest pain, palpitations, orthopnea, claudication, leg swelling and PND. Gastrointestinal: Negative for abdominal pain, blood in stool, constipation, diarrhea, melena, nausea and vomiting. Genitourinary: Negative for dysuria. Musculoskeletal: Negative for falls and joint pain. Skin: No new lesions Neurological: Negative for dizziness, tingling, sensory change, focal weakness, weakness and headaches. Endo/Heme/Allergies: Does not bruise/bleed easily. Psychiatric/Behaviora l: Negative for depression. The patient has insomnia. Objective: Physical Examination: Vitals:BP 80/52 Pulse 87 Resp 20 Ht 6' 4 (1.93m) Wt 217 lb (98.4kg) SpO2 97% BMI 26.43 kg/(m2). BP w/Orthostatic Vitals Date and Time Orthostatic BP Orthostatic Pulse BP Pulse BP Position BP Site BP Cuff Size 04/19/19 1119 -- -- 80/52 -- -- Left Arm -- 04/19/198 -- -- 84/56 -- -- Left Arm -- 04/19/19 1117 -- -- 140/80 87 -- Right Arm -- Peak Flow Date and Time PF Resp 04/19/191116 -- 20 Last 2 Encounter Wt Readings: Date: Wt: 04/19/2019 217 lb (98.4 kg) 03/25/2019 225 lb (102.1 kg) Physical Exam Constitutional: He is oriented to person, place, and time and well-developed, well-nourished, and in no distress. He appears not dehydrated. He appears healthy. He does not have a sickly appearance. No distress. HENT: Head: Normocephalic. Mouth/Throat: No oropharyngeal exudate. Neck: Normal range of motion. No hepatojugular reflux and no JVD present. Carotid bruit is not present. No edema and no erythema present. Cardiovascular: Normal rate, regular rhythm, S1 normal, S2 normal, normal heart sounds and intact distal pulses. PMI is not displaced. Exam reveals no gallop, no S3, no S4, no distant heart sounds, no friction rub and no decreased pulses. No murmur heard. Pulmonary/Chest: Effort normal and breath sounds normal. No respiratory distress. He has no wheezes. He has no rhonchi. He has no rales. He exhibits no tenderness. Sternal stability is normal. Abdominal: Soft. Bowel sounds are normal. He exhibits no distension and no mass. There is no tenderness. There is no rebound and no guarding. Musculoskeletal: Normal range of motion. He exhibits no edema or tenderness. Neurological: He is alert and oriented to person, place, and time. Gait normal. Skin: Skin is warm and dry. No bruising, no lesion, no petechiae and no rash noted. He is not diaphoretic. No cyanosis or erythema. No pallor. Sternal incision is healing, well approximated with scabs and skin glue flaking off. No drainage, redness or foul odor. Same presentation appears on the chest tube wounds. SVG harvest site incision is healing, well approximated with scabs and skin glue flaking off. No drainage, redness or foul odor. ICD incision site is covered with sterile strips, intact and dry, no signs of infections/complicati ons: such as hematoma. Psychiatric: Mood and affect normal. Nursing note and vitals reviewed. Assessment and Plan: ASSESSMENT/PLAN: 1. S/P CABG x 3 - ICD9: V45.81, ICD10: Z95.1 (primary diagnosis) - c/w aspirin 81, metoprolol 50 mg BID, and Lipitor 40 mg daily - C/W Plavix 75 mg for up to a year per ACS protocol - XR CHEST 2V FRONTAL/LAT - CARDIAC REHAB II [place] - f/u in 3-4 weeks for 1 month check 2. NSVT (nonsustained ventricular tachycardia) (HCC) - ICD9: 427.1, ICD10: I47.2 - Inducible VT per EP study, s/p ICD placement on 04/12 - intact ICD insertion site -C/W amiodarone 200 mg daily for 3 months, stop unless has VT -No driving for 6 months - CARDIAC REHAB II OUTPT ([place], [place]) 3. Acute blood loss as cause of postoperative anemia - ICD9: 285.1, ICD10: D62 - C/W vitamin C and iron supplementation 4. Essential hypertension - ICD9: 401.9, ICD10: I10 - good control - Continue current medication(s) - Recommended regular aerobic exercise. - Recommend home blood pressure monitoring, to bring results in on next visit - Goal of BP <130/80 [employer] Leader follow up appointment: Dr. Torres In very near future per patient PCP follow up appointment: has an appointment with Dr. Mcwilliams In summary, Rigo Diaz is a 68 year old male that returns to the office today for one week post-discharge follow up for NSTEMI, MV CAD s/p acute KS in 10/2017 with hayden x 2 to rca?and Brilinta, then CABG x 3 (svg-lad; svg-om; svg-pda; evh) performed on 04/02/[address] Macias. [facility], with no major complaints. We would like to have patient follow up in 3-4 weeks with CXR order, we would also like to discuss about starting cardiac rehab at the next visit. Electronically signed by Virgie Campbell APRN.CNP on April 19, 2019, 11:48 AM Normal [facility] CASE MANAGEMon 10-05-2019 CASE MANAGEM HNO ID: [id number] Author: Dorinda (Rn) BIBI Barbosa Service: Care Management Author Type: Registered Nurse Type: Care Mgt Progress Note Filed: 04/13/2019 12:01 PM Note Text: CARE MANAGEMENT DISCHARGE NOTE SERVICE DATE: 04/13/2019 SERVICE TIME: 11:59 AM LOS: 19 days Admission Date: 03/25/2019 DISCHARGE ARRANGEMENT (list agency and phone number) Home Care - Nursing Provider: [facility] CAREGIVER ASSESSMENT: Caregiver is ready, willing and able to meet the patient's needs as recommended by the inter-professional team? No Caregiver Needed Patient's transition needs and plan for meeting these needs: Pt will keep follow up appointments and take medications as prescribed. Pt will get [facility] SN. Pt will get wheeled walker. Does the patient have an acute stroke diagnosis, or has the patient had a stroke during this admission? No HANDOFF COMMUNICATION: RN gave DC education and paperwork to patient at bedside. TRANSPORTATION ARRANGEMENTS: Car with family ADDITIONAL CONTACT RESOURCES: n/a Pt dc to home today. Pt given wheeled walker script. Attempted to call [facility] regarding acceptance and delivery, but they are unable to check on this during the weekend per phone call with staff member. Pt states he may get it filled elsewhere on his own. [facility] orders for SN were sent to [facility]. SIGNATURE: Dorinda Barbosa RN PATIENT NAME: Rigo Diaz DATE: April 13, 2019 TIME: 11:59 AM PAGER/CONTACT #: [phone] Normal [facility] PROGRESSon 04-13-2019 PROGRESS HNO ID: [id number] Author: Anabell Lara Service: Electrophysiology Author Type: Physician Type: Progress Notes Filed: 04/13/2019 1:16 PM Note Text: PROGRESS NOTE CARDIOLOGY SERVICE [facility] Electrophysiology (EP) SERVICE DATE: 04/13/2019 SERVICE TIME: 1:08 PM Subjective INTERIM HISTORY: Mr. Diaz feels well, ready to be discharged. He states the ICD site left upper chest feels ok, no severe pain or tenderness. He denies CP, SOB, LH, palpitations. Objective PHYSICAL EXAM: Body mass index is 27.39 kg/m?. O2 Therapy: Room Air No data recorded Patient Vitals for the past 24 hrs: BP Temp Temp src Pulse Resp SpO2 Weight 04/13/19 1200 115/66 36.6 ?C (97.9 ?F) Oral 78 16 95 % ? 04/13/19 1118 ? ? ? 76 18 ? ? 04/13/19 0908 111/68 36.7 ?C (98.1 ?F) Oral 74 18 ? ? 04/13/19 0723 ? ? ? 80 18 ? ? 04/13/19 0548 125/61 ? ? 83 18 ? ? 04/13/19 0251 ? 102.1 kg (225 lb) 04/13/19 0248 115/56 36.3 ?C (97.3 ?F) Oral 76 20 92 % ? 04/12/19 2340 114/68 36.4 ?C (97.5 ?F) Oral 75 18 94 % ? 04/12/192150 ? ? ? 81 ? ? ? 04/12/192014 ? ? ? 76 18 95 % ? 04/12/19 1952 116/74 36.5 ?C (97.7 ?F) Oral 76 19 94 % ? 04/12/19 1540 133/63 36.9 ?C (98.4 ?F) Temporal 79 16 93 % ? 04/12/19 1400 108/50 ? ? 79 16 ? ? 04/12/19 1315 (!) 109/49 ? ? 87 16 ? ? Pleasant, comfortable, not in acute distress. Awake, alert, oriented times 3. Moves all extremities. SKIN: No rash or lumps. HEENT: Normocephalic, face symmetrical. EYES: EOMI NECK: No jugulovenous distention, Supple LUNGS: Clear to auscultation bilaterally. CARDIAC: Rhythm: regular rate and rhythm, Rate: normal, S1: normal intensity, S2: normal intensity, no loud murmurs or rubs; ICD site left upper chest intact, no hematoma or bleeding ABDOMEN: Soft, nontender, bowel sounds present. EXTREMITIES: No edema. NEURO: Grossly normal cognition, motor function, and cranial nerves III-XII PULSES: Peripheral pulses present. MEDICATIONS: Current Facility-Administered Medications Medication Dose Route Frequency - acetaminophen 650 mg tab(s) (TYLENOL) 650 mg ORAL q 6 H PRN - albuterol 2.5 mg /3 mL (0.083 %) 2.5 mg (PROVENTIL) 2.5 mg INHALATION q 2 H PRN - atorvastatin 40 mg tab(s) (LIPITOR) 40 mg ORAL AT BEDTIME - ondansetron (PF) 4 mg injection (ZOFRAN) 4 mg INTRAVENOUS q 6 H PRN - oxyCODONE-acetaminoph en 5-325 mg 1-2 tablet (PERCOCET) 1-2 tablet ORAL q 4 H PRN - morphine 2-4 mg injection 2-4 mg INTRAVENOUS q 1 H PRN - ipratropium-albuterol 3 mL nebulizer solution (DUONEB) 3 mL INHALATION q 4 H - pantoprazole DR 40 mg tab(s) (PROTONIX) 40 mg ORAL DAILY (6 AM) - bisacodyl 10 mg suppository (DULCOLAX) 10 mg RECTAL DAILY PRN - polyethylene glycol 3350 17 g packet (MIRALAX, GLYCOLAX) 17 g ORAL DAILY - senna-docusate 8.6-50 mg 1 tablet (SENNA-S) 1 tablet ORAL BID - brimonidine 0.2 % 1 Drop (ALPHAGAN) 1 Drop LEFT EYE BID () - latanoprost 0.005 % 1 Drop (XALATAN) 1 Drop BOTH EYES BID () - ferrous sulfate 325 mg tab(s) 325 mg ORAL BID w MEALS - ascorbic acid (vitamin C) 500 mg tab(s) (VITAMIN C) 500 mg ORAL BID - dextrose 40 % 15 g 15 g ORAL PRN Or - glucagon 1 mg injection (GLUCAGEN) 1 mg INTRAMUSCULAR PRN Or - dextrose 50 % 12.5 g injection 12.5 g INTRAVENOUS PRN - insulin lispro pen (rapid acting) (HumaLOG KWIKPEN) SUBCUTANEOUS w MEALS - NaCl 0.9% 2-10 mL 2-10 mL INTRAVENOUS q 12 H - melatonin 3 mg tab(s) 3 mg ORAL HS PRN - potassium chloride ER 20 mEq tab(s) (K-DUR, KLOR-CON) 20 mEq ORAL TID - magnesium oxide 400 mg tab(s) (MAG-OX) 400 mg ORAL BID - aspirin 81 mg chewable tab(s) 81 mg ORAL DAILY - clopidogrel 75 mg tab(s) (PLAVIX) 75 mg ORAL DAILY - metoprolol tartrate (short acting) 25 mg tab(s) (LOPRESSOR) 25 mg ORAL q 8 H - metFORMIN ER 1,000 mg tab(s) (GLUCOPHAGE XR) 1,000 mg ORAL DAILY (5 PM) - furosemide 40 mg tab(s) (LASIX) 40 mg ORAL DAILY - lactated ringers infusion 125 mL/hr INTRAVENOUS CONTINUOUS - ondansetron (PF) 4 mg injection (ZOFRAN) 4 mg INTRAVENOUS PRN - amiodarone 400 mg tab(s) (PACERONE) 400 mg ORAL DAILY - NaCl 0.9% 2-10 mL 2-10 mL INTRAVENOUS q 12 H DATA: Diagnostic tests reviewed for today's visit: Most recent labs Most recent telemetry monitoring ICD check by company outside industrial sales representative: normal ICD function Chest x-ray: ICD system with leads in expected locations; no pneumothorax Past 72 Hour Labs: Recent Labs 04/13/19 0335 GLUC 113* BUN 25* CREAT 1.19* NA 137 K 4.2 CHLOR 105 CO2 25 CA 8.4* Last Lab Drawn: Triglyceride 183 03/28/2019 HDL Cholesterol 36 03/28/2019 LDL Calculated 13 03/28/2019 Cholesterol, Total 86 03/28/2019 Assessment/Plan 1) paroxysmal nonsustained VT and sustained VT: continue PO amiodarone as outlined by our EP service 2) Inducible VT at EP study: at risk for sudden , ICD implanted 04/12/2019 3) Presence of ICD: ICD implanted 04/12/2019; normal function; CXR ok; implant site looks fine 4) Antiarrhythmic drug nursing home: amiodarone for NSVT; he will follow an oral tapering load; While being treated with amiodarone, he should have screening for the potential toxic organ side effects, particularly the liver and thyroid. Typically this involves blood testing for thyroid function (TSH) and liver function (AST, ALT) about every 6 months. Evaluation of pulmonary function, as with chest x-ray or primary function tests, are typically reserved for patients with relevant symptoms. A yearly complete eye exam is also recommended. 5) CAD s/p CABG 04/02/2019 Ok to discharge from EP standpoint. The EP team already outlined and provided discharge instructions including activity limitations and follow up plans. Medication and Non-Pharmacologic VTE Prophylaxis/Anticoagu lants Anticoagulant AND Antiplatelet Medications (From admission, onward) Start Dose Route Frequency Ordered Stop 04/13/19 0000 clopidogrel (PLAVIX) 75 mg tablet 75 mg ORAL DAILY 04/13/19 1027 04/12/20 2359 04/09/19 09 aspirin 81 mg chewable tab(s) 81 mg ORAL DAILY 04/08/19 1100 -- 04/09/19 09 clopidogrel 75 mg tab(s) (PLAVIX) 75 mg ORAL DAILY 04/08/19 1100 -- @LP PLINK([id number])@ VTE Prophylaxis: VTE prophylaxis appropriate SIGNATURE: Anabell Lara MD PATIENT NAME: Rigo Diaz DATE: April 13, 2019 TIME: 1:08 PM PAGER/CONTACT #: [phone] [facility] ANES Yue 04-12-2019 ANES POST HNO ID: [id number] Author: Juan Gardner Service: Anesthesiology Author Type: Physician Type: Anesthesia PostOp Filed: 04/12/2019 8:12 PM Note Text: POST ANESTHESIA EVALUATION NOTE SERVICE DATE: 04/12/2019 SERVICE TIME: 8:12 PM : 1950 Vitals: 04/12/19 0735 04/12/19 1130 04/12/19 1540 04/12/191951 Temp: 36.6 ?C (97.9 ?F) 36.4 ?C (97.5 ?F) 36.9 ?C (98.4 ?F) 36.5 ?C (97.7 ?F) 04/12/19 1315 04/12/19 1400 04/12/19 1540 04/12/191951 Arterial BP 1: BP: (!) 109/49 108/50 133/63 116/74 04/12/19 1315 04/12/19 1400 04/12/19 1540 04/12/191951 Pulse: 87 79 79 76 04/12/19 1315 04/12/19 1400 04/12/19 1540 04/12/191951 Resp: 16 16 16 19 04/12/19 1130 04/12/19 1156 04/12/19 1540 04/12/191951 SpO2: 98% 96% 93% 94% Validated Vital Signs: Yes POST ANES STATUS: No apparent anesthetic complications. The patient is appropriately hydrated with stable respiratory and cardiovascular status. Patient has safe and adequate airway control. The patient has appropriate pain relief and no significant post operative nausea or vomiting. The patient has achieved baseline mental status. Intra-Operative Events: No Significant Anesthesia Events Further assessment by Anesthesia Service: None Other Remarks: SIGNATURE: Juan Gardner MD PATIENT NAME: Rigo Diaz DATE: April 12, 2019 TIME: 8:12 PM PAGER/CONTACT #: [phone] [facility] ANES PREOPon 04-12-2019 ANES PREOP HNO ID: [id number] Author: Andrew Erazo Service: Anesthesiology Author Type: Physician Type: Anesthesia PreOp Filed: 04/12/2019 8:51 AM Note Text: ANESTHESIOLOGY DAY OF SURGERY NOTE SERVICE DATE: 04/12/2019 SERVICE TIME: 754 : 1950 Procedure(s) (LRB): (EP STUDY) COM ELECTOPHYS EVAL W INSERT REPO ELEC CATH W INDUC ARHYTHM W RT ATRIAL VENT HIS BUN PACE RECOR (N/A) possible INSERTION PERM IMPLANTABLE DEFIBRILLATOR SYSTEM, W/TRANSVENOUS LEAD(S) (N/A) Surgeon(s): José Kennedy Estimated body mass index is 27.39 kg/m? as calculated from the following: Height as of this encounter: 193 cm (6' 4). Weight as of this encounter: 102.1 kg (225 lb). Most recent hematocrit and potassium results: Hematocrit (I-STAT) 25.7 04/08/2019 Potassium (I-STAT) 4.3 04/12/2019 ANES DOS/PREOP NOTE: Vitals: 04/12/19 0042 04/12/19 0056 04/12/19 0625 04/12/19 0735 BP: 121/62 117/52 108/69 Pulse: 66 69 73 68 Resp: 18 18 18 16 Temp: 37 ?C (98.6 ?F) 36.9 ?C (98.4 ?F) 36.6 ?C (97.9 ?F) TempSrc: Oral Oral Oral SpO2: 95% 98% 95% 95% Weight: 102.1 kg (225 lb) Height: ACTIVE PROBLEM LIST Unspecified Disorder of Skin and Subcutaneous Tissue Type II Or Unspecified Type Diabetes Mellitus Without Mention of Complication, Not Stated As Uncontrolled Unspecified Essential Hypertension Other and Unspecified Hyperlipidemia Cardiac Dysrhythmia, Unspecified Tobacco Use Disorder Psychosexual Dysfunction With Inhibited Sexual Excitement Obesity, Unspecified Coronary Atherosclerosis of Unspecified Type of Vessel, [place] Or Graft Unspecified Hearing Loss Lumbago Peripheral Vascular Disease, Unspecified (Hcc) Congenital Pes Planus Djd (Degenerative Joint Disease) 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, Severe Stage 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 - PAST SURGICAL HISTORY OF 2002 herniorrhaphy left inguinal - PAST SURGICAL HISTORY OF 1963 elbow surgery bone chips - REMOVE CATARACT, INSERT LENS,EX 2010 OD - REMOVE CATARACT, INSERT LENS,EX OS 07/23/12 OS - TRABECULECTOMY WITH SCARRING 2010 OD FAMILY HISTORY Problem Relation Age of Onset - Emphysema Father - No Ocular Disease Father - Coronary Artery Disease Mother - No Ocular Disease Mother - Macular Degen Other Social History: Social History Tobacco Use - Smoking status: Current Every Day Smoker Packs/day: 1.00 Years: 50.00 Pack years: 50.00 Types: Cigarettes - Smokeless tobacco: Never Used Substance Use Topics - Alcohol use: No - Drug use: No No current facility-administered medications on file prior to encounter. Current Outpatient Medications on File Prior to Encounter: lisinopril-hydrochlor othiazide (PRINZIDE,ZESTORETIC) 20-12.5 mg per tablet Take 1 tablet by mouth once daily. atorvastatin (LIPITOR) 40 mg tablet Take 40 mg by mouth once daily. ticagrelor (BRILINTA) 90 mg tablet Take 90 mg by mouth twice daily. ALPHAGAN P 0.1 % drop USE 1 DROP IN THE LEFT EYE TWICE A DAY latanoprost (XALATAN) 0.005 % ophthalmic solution USE 1 DROP IN THE LEFT EYE DAILY AT BEDTIME, DISCARD AFTER 42 DAYS METOPROLOL 50 MG TAB Take one(1) tablet two(2) times daily. multivitamins w-minerals/lut(CENTRU M SILVER TAB) Take one(1) tablet daily. aspirin(ECOTRIN LOW STRENGTH 81 MG TAB) Take one(1) tablet daily. Current Facility-Administered Medications Medication Dose Route Frequency Provider Last Rate Last Dose - [MAR Hold due to Transfer] furosemide 40 mg tab(s) (LASIX) 40 mg ORAL DAILY Virgie Campbell CNP 40 mg at 04/12/19 0740 - [MAR Hold due to Transfer] metFORMIN ER 1,000 mg tab(s) (GLUCOPHAGE XR) 1,000 mg ORAL DAILY (5 PM) Lise Ciltea 1,000 mg at 04/11/19 1738 - [MAR Hold due to Transfer] potassium chloride ER 20 mEq tab(s) (K-DUR, KLOR-CON) 20 mEq ORAL TID Virgie Campbell CNP 20 mEq at 04/12/1940 - [MAR Hold due to Transfer] magnesium oxide 400 mg tab(s) (MAG-OX) 400 mg ORAL BID Virgie Pa) Mimi EMBLEM CUTTER 400 mg at 04/12/19 0741 - [MAR Hold due to Transfer] aspirin 81 mg chewable tab(s) 81 mg ORAL DAILY Virgie (Manufacturing Maintenance Manager) Mimi EMBLEM CUTTER 81 mg at 04/12/1940 - [MAR Hold due to Transfer] clopidogrel 75 mg tab(s) (PLAVIX) 75 mg ORAL DAILY Virgie (Manufacturing Maintenance Manager) MIGUELITO Campbell 75 mg at 04/12/19 0740 - [MAR Hold due to Transfer] metoprolol tartrate (short acting) 25 mg tab(s) (LOPRESSOR) 25 mg ORAL q 8 H Virgie Pa) Mimi EMBLEM CUTTER 25 mg at 04/12/19 0627 - [MAR Hold due to Transfer] amiodarone 400 mg tab(s) (PACERONE) 400 mg ORAL TID Virgie (Miguelito) Mimi EMBLEM CUTTER 400 mg at 04/12/19 0740 - [MAR Hold due to Transfer] NaCl 0.9% 2-10 mL 2-10 mL INTRAVENOUS q 12 H Virgie Pa) MIGUELITO Campbell 10 mL at 04/12/19 0742 - [MAR Hold due to Transfer] melatonin 3 mg tab(s) 3 mg ORAL HS PRN Virgie Campbell EMBLEM CUTTER 3 mg at 04/12/19 0151 - [MAR Hold due to Transfer] dextrose 40 % 15 g 15 g ORAL PRN Virgie Pa) MIGUELITO Campbell Or - [MAR Hold due to Transfer] glucagon 1 mg injection (GLUCAGEN) 1 mg INTRAMUSCULAR PRN Virgie Pa) MIGUELITO Campbell Or - [MAR Hold due to Transfer] dextrose 50 % 12.5 g injection 12.5 g INTRAVENOUS PRN Virgie Pa) MIGUELITO Campbell - [MAR Hold due to Transfer] insulin lispro pen (rapid acting) (HumaLOG KWIKPEN) SUBCUTANEOUS w MEALS Virgie Campbell CNP 5 Units at 04/07/19 1228 - [MAR Hold due to Transfer] brimonidine 0.2 % 1 Drop (ALPHAGAN) 1 Drop LEFT EYE BID () Virgie Campbell CNP 1 Drop at 04/12/19 0600 - [MAR Hold due to Transfer] latanoprost 0.005 % 1 Drop (XALATAN) 1 Drop BOTH EYES BID () Virgie Campbell CNP 1 Drop at 04/11/19 2154 - [MAR Hold due to Transfer] ferrous sulfate 325 mg tab(s) 325 mg ORAL BID w MEALS Virgie Pa) MIGUELITO Campbell 325 mg at 04/12/19 0742 - [MAR Hold due to Transfer] ascorbic acid (vitamin C) 500 mg tab(s) (VITAMIN C) 500 mg ORAL BID Virgie Campbell CNP 500 mg at 04/12/19 0741 - [MAR Hold due to Transfer] ipratropium-albuterol 3 mL nebulizer solution (DUONEB) 3 mL INHALATION q 4 H Virgie Campbell CNP 3 mL at 04/12/19 0056 - [MAR Hold due to Transfer] pantoprazole DR 40 mg tab(s) (PROTONIX) 40 mg ORAL DAILY (6 AM) Virgie Campbell CNP 40 mg at 04/12/19 0627 - [MAR Hold due to Transfer] bisacodyl 10 mg suppository (DULCOLAX) 10 mg RECTAL DAILY PRN Virgie Campbell CNP - [MAR Hold due to Transfer] polyethylene glycol 3350 17 g packet (MIRALAX, GLYCOLAX) 17 g ORAL DAILY Virgie Campbell CNP 17 g at 04/11/19 0849 - [MAR Hold due to Transfer] senna-docusate 8.6-50 mg 1 tablet (SENNA-S) 1 tablet ORAL BID Weinveronica (Manufacturing Maintenance Manager) MIGUELITO Campbell 1 tablet at 04/12/19 0740 - [MAR Hold due to Transfer] acetaminophen 650 mg tab(s) (TYLENOL) 650 mg ORAL q 6 H PRN Weina (Manufacturing Maintenance Manager) Mimi EMBLEM CUTTER 650 mg at 04/03/19 1737 - [MAR Hold due to Transfer] albuterol 2.5 mg /3 mL (0.083 %) 2.5 mg (PROVENTIL) 2.5 mg INHALATION q 2 H PRN Virgie (Manufacturing Maintenance Manager) MIGUELITO Campbell - [MAR Hold due to Transfer] atorvastatin 40 mg tab(s) (LIPITOR) 40 mg ORAL AT BEDTIME Maudea (Manufacturing Maintenance Manager) Mimi EMBLEM CUTTER 40 mg at 04/11/19 2148 - [MAR Hold due to Transfer] ondansetron (PF) 4 mg injection (ZOFRAN) 4 mg INTRAVENOUS q 6 H PRN Virgie (Manufacturing Maintenance Manager) MIGUELITO Campbell - [MAR Hold due to Transfer] oxyCODONE-acetaminoph en 5-325 mg 1-2 tablet (PERCOCET) 1-2 tablet ORAL q 4 H PRN Virgie (Manufacturing Maintenance Manager) MIGUELITO Campbell 1 tablet at 04/08/19 2138 - [MAR Hold due to Transfer] morphine 2-4 mg injection 2-4 mg INTRAVENOUS q 1 H PRN Virgie (Manufacturing Maintenance Manager) Mimi EMBLEM CUTTER 4 mg at 04/03/19 1432 Allergies: ALLERGIES No Known Allergies DOS EXAM: Adequate NPO status: Yes Anesthetic risks, benefits, alternatives, personnel and consent discussed: Yes Patient agrees to proceed: Yes Previous Anesthesia: No history of adverse event. Airway Assessment: MP 2; Neck ROM: Limited Extension; Airway Evaluation: Short Thyromental Distance and prominent teeth # 8 AND 9 Symptoms of Sleep Apnea: None Dentition: Teeth intact Additional Physical Exam: Lungs: Lungs clear to auscultation. Good diaphragmatic excursion. Cardiac: faint sounds, slight irregularity Additional Pertinent Findings: N/A Blood Products: Not anticipated for this procedure. Anesthetic Plan: MAC with Sedation and Standard ASA Monitors Pain Management Plan: Parenteral or Oral ASA Class: 3 Other Medical Problems: None Chronic Beta Svitlana medication administered within 24 hours: Yes I have interviewed and examined the patient. I have reviewed the medical record and/or the pre-anesthesia evaluation, pertinent labs, and test results. Significant changes in the patient's condition since the History and Physical, not otherwise documented in primary service progress notes: No This contains updated information obtained within 48 hours of Surgery/Procedure. SIGNATURE: Andrew Erazo MD PATIENT NAME: Rigo Diaz DATE: April 12, 2019 TIME: 8:48 AM CSN: [id number] [facility] HISTORY PHYSICALon 9 HISTORY PHYSICAL HNO ID: [id number] Author: José Kennedy Service: Electrophysiology Author Type: Physician Type: HANDP Filed: 04/12/2019 11:11 AM Note Text: UPDATED HISTORY AND PHYSICAL EXAMINATION SERVICE DATE: 04/12/2019 SERVICE TIME: 0800 PHYSICAL EXAM MUST BE COMPLETED ON ADMISSION The History and Physical (completed in the past 30 days) has been reviewed and the patient has been examined. The contents accurately reflect the patient's condition with the following additions or revisions since the HANDP was completed. Examination indicates no changes. No acute distress, alert and oriented x3, comfortable, easy work of breathing, face symmetric, moving all extremities, skin warm and dry. Provisional Diagnosis/Treatment Plan: Procedure(s) (LRB): (EP STUDY) COM ELECTOPHYS EVAL W INSERT REPO ELEC CATH W INDUC ARHYTHM W RT ATRIAL VENT HIS BUN PACE RECOR (N/A) possible INSERTION PERM IMPLANTABLE DEFIBRILLATOR SYSTEM, W/TRANSVENOUS LEAD(S) (N/A) This HANDP can be found in the Electronic Medical Record. SIGNATURE: José Kennedy MD PATIENT NAME: Rigo Diaz DATE: April 12, 2019 TIME: 11:10 AM PAGER: [phone] [facility] PROGRESSon 04-12-2019 PROGRESS HNO ID: [id number] Author: eBla DrakeRn) BIBI Dinh Service: Electrophysiology Author Type: Registered Nurse Type: Progress Notes Filed: 04/12/2019 3:21 PM Note Text: ICD discharge teaching completed. [facility] PROGRESS HNO ID: [id number] Author: Virgie Pa) MIGUELITO Campbell Service: Cardiovascular Surgery Author Type: Nurse Practitioner Type: Progress Notes Filed: 04/12/2019 5:50 PM Note Text: CARDIOTHORACIC SURGERY POSTOP PROGRESS NOTE SERVICE DATE: 04/12/2019 SERVICE TIME: 11:35 AM Subjective S/P SURGERY: Procedure(s) (LRB): CABG x 3 (lsvg-lad; svg-om; svg-pda, evh) EP STUDY: Inducible VT, s/p defibrillation, placement of permanent ICD DATE OF SURGERY: 04/12/2019 POSTOP DAY #10 LOS: 18 HPI: Mr. 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 He was found to have VT,?required?defibril lationx1?and amiodarone bolus?with conversion. He was rule in for NSTEMI and?underwent heart catheterization,?whic h revealed multivessel CAD. Patient was then transferred to?[facility] for revascularization evaluation.? ? INTERVAL EVENTS / PERTINENT ROS:?After 7 days of Brilinta holiday. Pre-op evaluation consisted of?vascular surgery due to left subclavian stenosis;?and pulmonary medicine due to poor FEV1 in the setting of current smoker?of 47 years.?Patient underwent bypass ?[address] Macias on 04/02.?Intra-Op, patient had dissection of the HUIZAR requiring replacement with vein graft to LAD.?Postop recovery in ICU was complicated by postop?vasoplegia required?fluid resuscitation;?acute postop coagulopathy required multiple dose of protamine;?postop PAF/NSVT?found on POD#2, started on?amiodarone drip and EP consult?(no interventions recommended);?acute blood loss anemia, require 1 unit PRBC?on POD#3. He was transferred out of ICU on POD#5.? Patient is visiting exam by myself while he rest in bed after his EP procedure today. He denies pain, no LH/DZ. No chest palpitation/discomfor t. He is to bedrest for post procedural request. No shortness of breath. Objective Admission Weight: 105.9 kg (233 lb 7.5 oz) BP 108/69 Pulse 68 Temp 36.6 ?C (97.9 ?F) (Oral) Resp 16 Ht 193 cm (6' 4) Wt 102.1 kg (225 lb) SpO2 95% BMI 27.39 kg/m? Body surface area is 2.34 meters squared. Min/Max/Average Temperature AND Blood Pressure: Temp (24hrs), Av.7 ?C (98.1 ?F), Min:36.4 ?C (97.5 ?F), Max:37 ?C (98.6 ?F) Systolic (24hrs), Av , Min:108 , Max:140 Diastolic (24hrs), Av, Min:52, Max:69 Intake/Output Summary (Last 24 hours) at 04/12/2019 1135 Last data filed at 04/11/2019 1834 Gross per 24 hour Intake 600 ml Output ? Net 600 ml TELEMETRY: normal sinus rhythm PHYSICAL EXAM: General Appearance: well developed and no distress Lungs: clear and respiratory effort: normal Heart: regular rhythm, S1, S2 normal and no murmur Peripheral Vascular/Arteries: pulses intact, dorsalis pedis +2 and radial +2 Abdomen: soft, non-tender and bowel sounds present Genitourinary: voiding without difficulty Musculoskeletal: no deformities Neurologic/Psychiatri c: oriented to time, place and person Extremities: edema: Trace, BLE Lines, Drains, and Airways Line Peripheral 03/30/19 1750 Right Forearm 20 Gauge 12 days Peripheral 04/02/19 Right Hand 18 Gauge 10 days Peripheral 04/09/19 1746 Left Antecubital 20 Gauge 2 days DATA: Diagnostic tests reviewed for today's visit: Significant Lab Results: reviewed Chest X-RAY 04/08: IMPRESSION: 1. ?The patient has undergone interval sternotomy. 2. ?Interval development of bilateral pleural effusions right greater than left. 3. ?Increased density at the right lung base in part due to pleural effusion although some atelectasis or infiltrate may also be present. 4. ?Otherwise no interval change. Recent Labs 04/12/19 0642 04/10/19 0528 NA 136 138 K 4.3 4.3 CHLOR 106 105 CO2 24 25 BUN 22* 23* CREAT 1.09 1.03 GLUC 113* 118* CA 8.7 8.9 ANION 10 12 Assessment/Plan NSTEMI s/p CABG x 3 (svg-lad; svg-om; svg-pda; evh) -POD#10 -s/p acute KS in 10/2017 with hayden x 2 to rca?and brillinta -continue ASA?81, atorvastatin 40, metoprolol?25?TID -Bowel regimen:?+BM -ambulate?as tolerated -Pain control with just Tylenol per patient -heart healthy diet -vest: Enforced using - pacing wire removal?04/08 -Lasix 40 mg?daily x 4 days?with?K ? Ventricular Tachycardia -short runs?periodically,?no nsustained -EPS: Positive positive with inducible VT?, S/P ICD placement? -continue amiodarone?PO 400 mg daily x3 months per EP - BB to 25 mg?TID -Added Mag and K?supplement ? Acute blood loss anemia -HANDH?8.3, WITH STABLE HD -transfused 1 u PRBCs on 04/05 -c/w iron, folate, ascorbic acid ? Leukocytosis -9?trending down -continue to monitor ? Left subclavian stenosis -take BP in right side ? DM2 -new finding -endo on consult ? HTN -c/w BB 25?TID?, stable ? HLD -Atorvastatin ? Tobacco Use disorder -encourage cessation -patient agreed ? DVT ppx -lovenox, scds, beka hose ? GI ppx -protonix ? Cardiac Rehabilitation: -Phase I teaching reviewed (including indications, restrictions, home exercise regimen, BP/Pulse monitoring, symptom management) -Phase II to be ordered at 1 week appointment ? ? Resolved issues:? Coagulopathy -resolved ? Post-op vasoplegia -resolved ? Anticipated post-op respiratory insufficiency -currently?resolved on RA -encourage IS, deep breathing and cough? ? ? Dispo Home?with C in AM. Tests/Labs Ordered: 1. cxr 2v 2. bmp I spent 35 minutes in the visit, with more than 50% of the total [id number]-aw-uruu time of the visit in counseling / coordination of care. SIGNATURE: Virgie Campbell APRN.EMBLEM CUTTER PATIENT NAME: Rigo Diaz DATE: April 12, 2019 TIME: 11:35 AM PAGER/CONTACT #:[phone] ETX [id number] [facility] CASE MANAGEMon 04-11-2019 CASE MANAGEM HNO ID: [id number] Author: Guera (Rn) BIBI Yancey Service: Care Management Author Type: Registered Nurse Type: Care Mgt Progress Note Filed: 04/11/2019 2:45 PM Note Text: CARE MANAGEMENT PROGRESS NOTE SERVICE DATE: 04/11/2019 SERVICE TIME: 2:44 PM LOS: 17 days Completed RX for wheeled walker uploaded to [facility] via [employer]. Telephone call to [facility] requesting they watch for the RX and for them to notify us if they can fill. SIGNATURE: Guera Yancey RN PATIENT NAME: Rigo Diaz DATE: April 11, 2019 TIME: 2:43 PM PAGER/CONTACT #: [phone] [facility] CONSULT PROGon 04-11-2019 CONSULT PROG HNO ID: [id number] Author: Caridad DrakeLead Clinical Research Coordinator.Al Cunningham Service: Electrophysiology Author Type: Nurse Practitioner Type: Consult Progress Note Filed: 04/11/2019 4:47 PM Note Text: PROGRESS NOTE ELECTROPHYSIOLOGY SERVICE SERVICE DATE: 04/11/2019 SERVICE TIME: 4:28 PM Subjective INTERIM HISTORY: Patient sitting in bedside chair. He is eager to have the EPS possible ICD implant tomorrow 04/12/[address] Kennedy. He denies chest pain, SOB, palpitations, wheezing, lightheadedness and dizziness. Review of Systems Constitutional: Negative for chills, diaphoresis and fever. Respiratory: Positive for cough and sputum production (thick, green/yellow). Negative for hemoptysis, shortness of breath and wheezing. Cardiovascular: Positive for leg swelling (left leg). Negative for chest pain, palpitations, orthopnea and PND. Gastrointestinal: Negative for abdominal pain, constipation, diarrhea, heartburn, nausea and vomiting. Genitourinary: Negative for dysuria. Neurological: Negative for dizziness, loss of consciousness and headaches. Objective PHYSICAL EXAM: Body mass index is 27.64 kg/m?. O2 Therapy: Room Air Patient Vitals for the past 24 hrs: BP Temp Temp src Pulse Resp SpO2 Weight 04/11/19 1506 140/56 36.4 ?C (97.5 ?F) Oral 80 16 98 % ? 04/11/19 1200 119/62 36.8 ?C (98.2 ?F) Oral 66 16 96 % ? 04/11/19 1154 ? ? ? 68 18 ? ? 04/11/19 0840 121/52 36.8 ?C (98.2 ?F) Oral 68 18 98 % ? 04/11/19 0741 ? ? ? 62 18 95 % ? 04/11/19 0600 ? 103 kg (227 lb 1.6 oz) 04/11/19 0533 134/63 36.8 ?C (98.2 ?F) Oral 80 18 (!) 9 % ? 04/11/19 0004 106/66 36.2 ?C (97.2 ?F) Temporal 75 18 99 % ? 04/10/192121 139/60 36.3 ?C (97.3 ?F) Oral 73 18 99 % ? 04/10/192119 ? ? ? 71 16 97 % ? 04/10/19 1706 ? ? ? 89 18 100 % ? Pleasant, comfortable, not in acute distress. SKIN: warm AND dry; normal color. HEENT: Normocephalic. NECK: Supple, no JVD, no carotid bruits auscultated. LUNGS: Clear to auscultation bilaterally. Respirations unlabored at rest. CARDIAC: Normal S1, S2, regular rate AND rhythm, no significant murmurs or gallops auscultated. ABDOMEN: Soft, nontender to superficial palpation, bowel sounds auscultated. EXTREMITIES: +1 edema left lower extremity, ankle and foot. NEURO: awake, alert, oriented X 3, moves all 4 extremities. PULSES: bilateral radial AND dorsalis pedis pulses palpable. MEDICATIONS: Current Facility-Administered Medications Medication Dose Route Frequency - acetaminophen 650 mg tab(s) (TYLENOL) 650 mg ORAL q 6 H PRN - enoxaparin 40 mg injection (LOVENOX) 40 mg SUBCUTANEOUS DAILY - albuterol 2.5 mg /3 mL (0.083 %) 2.5 mg (PROVENTIL) 2.5 mg INHALATION q 2 H PRN - atorvastatin 40 mg tab(s) (LIPITOR) 40 mg ORAL AT BEDTIME - ondansetron (PF) 4 mg injection (ZOFRAN) 4 mg INTRAVENOUS q 6 H PRN - oxyCODONE-acetaminoph en 5-325 mg 1-2 tablet (PERCOCET) 1-2 tablet ORAL q 4 H PRN - morphine 2-4 mg injection 2-4 mg INTRAVENOUS q 1 H PRN - ipratropium-albuterol 3 mL nebulizer solution (DUONEB) 3 mL INHALATION q 4 H - pantoprazole DR 40 mg tab(s) (PROTONIX) 40 mg ORAL DAILY (6 AM) - bisacodyl 10 mg suppository (DULCOLAX) 10 mg RECTAL DAILY PRN - polyethylene glycol 3350 17 g packet (MIRALAX, GLYCOLAX) 17 g ORAL DAILY - senna-docusate 8.6-50 mg 1 tablet (SENNA-S) 1 tablet ORAL BID - brimonidine 0.2 % 1 Drop (ALPHAGAN) 1 Drop LEFT EYE BID () - latanoprost 0.005 % 1 Drop (XALATAN) 1 Drop BOTH EYES BID () - ferrous sulfate 325 mg tab(s) 325 mg ORAL BID w MEALS - ascorbic acid (vitamin C) 500 mg tab(s) (VITAMIN C) 500 mg ORAL BID - dextrose 40 % 15 g 15 g ORAL PRN Or - glucagon 1 mg injection (GLUCAGEN) 1 mg INTRAMUSCULAR PRN Or - dextrose 50 % 12.5 g injection 12.5 g INTRAVENOUS PRN - insulin lispro pen (rapid acting) (HumaLOG KWIKPEN) SUBCUTANEOUS w MEALS - amiodarone 400 mg tab(s) (PACERONE) 400 mg ORAL TID - NaCl 0.9% 2-10 mL 2-10 mL INTRAVENOUS q 12 H - melatonin 3 mg tab(s) 3 mg ORAL HS PRN - potassium chloride ER 20 mEq tab(s) (K-DUR, KLOR-CON) 20 mEq ORAL TID - magnesium oxide 400 mg tab(s) (MAG-OX) 400 mg ORAL BID - aspirin 81 mg chewable tab(s) 81 mg ORAL DAILY - clopidogrel 75 mg tab(s) (PLAVIX) 75 mg ORAL DAILY - metoprolol tartrate (short acting) 25 mg tab(s) (LOPRESSOR) 25 mg ORAL q 8 H - metFORMIN ER 1,000 mg tab(s) (GLUCOPHAGE XR) 1,000 mg ORAL DAILY (5 PM) - furosemide 40 mg tab(s) (LASIX) 40 mg ORAL DAILY DATA: Diagnostic tests reviewed for today's visit: Most recent labs and imaging results. Most recent EKG - 04/08/19 - normal sinus rhythm with intraventricular conduction delay, 76 bpm. Most recent Echo - 04/03/19 CONCLUSIONS: - Technically difficult exam due to post op, suboptimal positioning and bandages/chest tubes/wound. - Exam indication: Hypotension - The left ventricle is normal in size. Left ventricular systolic function is normal. EF = 65 ? 5% (visual est.) Definity contrast used for endocardial border detection. - Study is suboptimal for assessment of pericardial effusion. Within the limitations of the study, there is no obvious pericardial effusion. Inflow velocities have no significant respiratory variation arguing against significant tamponade. - Exam was compared with the prior echocardiographic exam performed on 04/02/19. There is no significant change. TELEMETRY/SHELL MOLDER: Sinus rhtythm with frequent PVCs, heart rate in the 70s. Occasionally having NSVT 3-5 beats. Past 72 Hour Labs: Recent Labs 04/10/19 0528 GLUC 118* BUN 23* CREAT 1.03 NA 138 K 4.3 CHLOR 105 CO2 25 CA 8.9 Last Lab Drawn: Triglyceride 183 03/28/2019 HDL Cholesterol 36 03/28/2019 LDL Calculated 13 03/28/2019 Cholesterol, Total 86 03/28/2019 Assessment/Plan Patient Active Hospital Problem List: NSVT - Discussed with patient that he is still having several episodes of NSVT. He is asymptomatic, normal EF. Tomorrow 04/12, he will have an EPS +/- ICD implantation with Dr. Kennedy. If the EPS is positive, the ICD will be placed for secondary prevention of SCD. The patient is agreeable to the plan, all questions answered to the patient's satisfaction. He was loaded with IV amiodarone and started on oral amiodarone 04/07/19. Continue amiodarone 400 mg TID and Lopressor 25 mg Q8H. Continue to monitor heart rate AND rhythm. Stop Lovenox for procedure with Dr. Kennedy. SIGNATURE: Caridad Cunningham APRN.EMBLEM CUTTER PATIENT NAME: Rigo Diaz DATE: April 11, 2019 TIME: 4:28 PM PAGER/CONTACT #: [phone] [facility] NUTRITIONon 04-11-2019 NUTRITION HNO ID: [id number] Author: Patricia Browne RD Service: Nutrition Therapy Author Type: Registered Dietitian Type: Nutrition Filed: 04/11/2019 3:28 PM Note Text: NUTRITION THERAPY PATIENT EDUCATION SERVICE DATE: 04/11/2019 SERVICE TIME: 15:10 TOPIC: Diabetic Education Diagnosis: ADULT: Diabetes EXEMPTION FROM DIET EDUCATION Patient/family refusal of diet education due to disinterest/resistanc e/avoidance. Patient pleasantly states they tried to make me diabetic but I stopped them. Reports that he will be going on [employer] at home. Encouraged he choose the CHO-controlled plan, he states nah, I'm going to get the protein plan for men. Offered written materials on CHO, patient states I'll be OK without. READINESS TO LEARN Cognitive Ability: Alert and oriented Motivation to Learn: Disinterested / avoidant Family Support: Unable to assess - Family not present Instruction Provided to: Patient Patient Learns Best by: Unable to Assess Factors Affecting Learning: None Physical Limitations Affecting Learning: None LEARNING RESPONSE Patient / Family Response: Patient not interested in receiving education on a CHO-controlled diet. Did spend time talking to patient on CHO control in regards to wound healing. Encouraged 60-75 grams CHO per meal. Method of Instruction: Verbal instruction, patient declines written materials Instructional Aids Used: NA Supplemental Material Provided to Patient: None Follow-Up Plan: Complete - No need for follow-up unless patient desires Referral (Recommendation): Nutrition - Outpatient as desired MNT Billing: Re-assess/15 min 1 unit SIGNATURE: Patricia Browne RD PATIENT NAME: Rigo Diaz DATE: April 11, 2019 TIME: 2:57 PM PAGER: [phone] [facility] NUTRITION HNO ID: [id number] Author: Patricia Browne RD Service: Nutrition Therapy Author Type: Registered Dietitian Type: Nutrition Filed: 04/11/2019 3:30 PM Note Text: NUTRITION THERAPY PROGRESS NOTE SERVICE DATE: 04/11/2019 SERVICE TIME: 15:10 RECOMMENDED DIAGNOSIS: NO MALNUTRITION IDENTIFIED per Registered Dietitian on 04/03/19 NUTRITION CARE PLAN Problem, Etiology and Signs/Symptoms: Increased nutrient needs kcal/protein related to increased physiological demand as evidenced by s/p CABG 04/02/19 Intervention: 1. Encouraged oral intake, CHO controlled diet, protein. Please document accurate % meals taken in nursing flowsheet, thank you Monitor and Evaluation: Goal: Meet >75% of estimated needs Monitor fluid/electrolyte balance Monitor labs, I/Os, vital signs, weight Discharge Nutrition Recommendations: Diet: CHO controlled, heart healthy ------- Nutrition Follow-up: Interval History: EP following for NSVT, possible ICD noted. Nutritional Intake: Unable to determine, only 2 meals recorded since last RD encounter. 25, 40%. Patient however reports that his intake has improved greatly. Tells me he ate 100% of his breakfast and most of his lunch. Denies poor appetite/intake. Orders Placed This Encounter DIET HEART HEALTHY Standing Status: Standing Number of Occurrences: 1 Order Specific Question: Heart Healthy Answer: 4 GM SODIUM (<200 MG CHOL / LOW SAT FAT) Lines and Drains: Peripheral 03/30/19 1750 Right Forearm 20 Gauge (Active) Peripheral 04/02/19 Right Hand 18 Gauge (Active) Peripheral 04/09/19 1746 Left Antecubital 20 Gauge (Active) Height: 193 cm (6' 4) Admission Weight: 105.9 kg (233 lb 7.5 oz) Current Weight: 103 kg (227 lb 1.6 oz) Body mass index is 27.64 kg/m?. normal Recent Labs 04/10/19 0528 GLUC 118* BUN 23* CREAT 1.03 NA 138 K 4.3 CHLOR 105 CO2 25 MNT Billing Type: Re-assess/15 min 1 unit SIGNATURE: Patricia Browne RD PATIENT NAME: Rigo Diaz DATE: April 11, 2019 TIME: 2:52 PM PAGER: [phone] Normal [facility] PROGRESSon 04-11-2019 PROGRESS HNO ID: [id number] Author: Virgie (Miguelito) MIGUELITO Campbell Service: Cardiovascular Surgery Author Type: Nurse Practitioner Type: Progress Notes Filed: 04/11/2019 11:42 AM Note Text: CARDIOTHORACIC SURGERY POSTOP PROGRESS NOTE SERVICE DATE: 04/11/2019 SERVICE TIME: 8:33 AM Subjective S/P SURGERY: Procedure(s) (LRB): CABG x 3 (lsvg-lad; svg-om; svg-pda, evh) DATE OF SURGERY: 04/02/2019 POSTOP DAY #9 LOS: 17 HPI: Mr. 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 He was found to have VT,?required?defibril lationx1?and amiodarone bolus?with conversion. He was rule in for NSTEMI and?underwent heart catheterization,?whic h revealed multivessel CAD. Patient was then transferred to?[facility] for revascularization evaluation.? ? INTERVAL EVENTS / PERTINENT ROS:?After 7 days of Brilinta holiday. Pre-op evaluation consisted of?vascular surgery due to left subclavian stenosis;?and pulmonary medicine due to poor FEV1 in the setting of current smoker?of 47 years.?Patient underwent bypass ?[address] Macias on 04/02th.?Intra-Op, patient had dissection of the HUIZAR requiring replacement with vein graft to LAD.?Postop recovery in ICU was complicated by postop?vasoplegia required?fluid resuscitation;?acute postop coagulopathy required multiple dose of protamine;?postop PAF/NSVT?found on POD#2, started on?amiodarone drip and EP consult?(no interventions recommended);?acute blood loss anemia, require 1 unit PRBC?on POD#3. He was transferred out of ICU on POD#5.? Patient is seen and examed while he sits the side of the bed. Denies any events overnight. Stating he is bored. Reviewed Tele, short runs (3-4 beats run) NSVT noted. Denies any symptoms, looking forward to the EP study 1st thing in the morning tomorrow. Objective Admission Weight: 105.9 kg (233 lb 7.5 oz) BP 134/63 Pulse 62 Temp 36.8 ?C (98.2 ?F) (Oral) Resp 18 Ht 193 cm (6' 4) Wt 103 kg (227 lb 1.6 oz) SpO2 95% BMI 27.64 kg/m? Body surface area is 2.35 meters squared. Min/Max/Average Temperature AND Blood Pressure: Temp (24hrs), Av.6 ?C (97.9 ?F), Min:36.2 ?C (97.2 ?F), Max:37 ?C (98.6 ?F) Systolic (24hrs), Av , Min:106 , Max:139 Diastolic (24hrs), Av, Min:46, Max:67 Intake/Output Summary (Last 24 hours) at 04/11/2019 0833 Last data filed at 04/11/2019 0700 Gross per 24 hour Intake 440 ml Output 75 ml Net 365 ml TELEMETRY: normal sinus rhythm PHYSICAL EXAM: General Appearance: well developed and no distress Skin: Midsternal incision dry AND intact. and SVG incisions dry AND intact. Lungs: clear and respiratory effort: normal Heart: regular rhythm, S1, S2 normal and no murmur Peripheral Vascular/Arteries: pulses intact, dorsalis pedis +2 and radial +2 Abdomen: soft, non-tender and bowel sounds present Genitourinary: voiding without difficulty Musculoskeletal: no deformities Neurologic/Psychiatri c: oriented to time, place and person and steady gait Extremities: edema: 1+, pitting LLL Lines, Drains, and Airways Line Peripheral 03/30/19 1750 Right Forearm 20 Gauge 11 days Peripheral 04/02/19 Right Hand 18 Gauge 9 days Peripheral 04/09/19 1746 Left Antecubital 20 Gauge 1 day DATA: Diagnostic tests reviewed for today's visit: Significant Lab Results: reviewed most recent labs ? Chest X-RAY?04/08/2019: IMPRESSION: 1. ?The patient has undergone interval sternotomy. 2. ?Interval development of bilateral pleural effusions right greater than left. 3. ?Increased density at the right lung base in part due to pleural effusion although some atelectasis or infiltrate may also be present. 4. ?Otherwise no interval change.? ? Recent Labs 04/10/19 0528 04/09/19 0523 NA 138 137 K 4.3 3.8 CHLOR 105 106 CO2 25 24 BUN 23* 25* CREAT 1.03 1.05 GLUC 118* 113* CA 8.9 8.3* ANION 12 11 Assessment/Plan NSTEMI s/p CABG x 3 (svg-lad; svg-om; svg-pda; evh) -POD#9 -s/p acute KS in 10/2017 with hayden x 2 to rca?and brillinta -continue ASA?81, atorvastatin 40, metoprolol?25?TID -Bowel regimen:?+BM -ambulate?as tolerated -Pain control with just Tylenol per patient -heart healthy diet -vest: Enforced using - pacing wire removal?04/08 -Lasix 40 mg daily x 4 days with?K ? Ventricular Tachycardia -short runs?periodically,?no nsustained -EP on consult:?EP study on Monday, if VT is inducible, then possible ICD placement -continue amiodarone?PO - BB to 25 mg?TID -Added Mag and K?supplement -no Life vest per EP ? Acute blood loss anemia -HANDH?8.3, WITH STABLE HD -transfused 1 u PRBCs on 04/05 -c/w iron, folate, ascorbic acid ? Leukocytosis -9?trending down -continue to monitor ? Left subclavian stenosis -take BP in right side ? DM2 -new finding -endo on consult ? HTN -c/w BB 25?TID?, stable ? HLD -Atorvastatin ? Tobacco Use disorder -encourage cessation -patient agreed ? DVT ppx -lovenox, scds, beka kendelle ? GI ppx -protonix Cardiac Rehabilitation: -Phase I teaching reviewed (including indications, restrictions, home exercise regimen, BP/Pulse monitoring, symptom management) -Phase II to be ordered at 1 week appointment ? Resolved issues: Coagulopathy -resolved ? Post-op vasoplegia -resolved Anticipated post-op respiratory insufficiency -currently?resolved on RA -encourage IS, deep breathing and cough? ? Dispo Home with [facility] when ready, possible this weekend after EP study/procedure ? Tests/Labs Ordered: 1. BMP SIGNATURE: Virgie Campbell APRN.EMBLEM CUTTER PATIENT NAME: Rigo Diaz DATE: April 11, 2019 TIME: 8:33 AM PAGER/CONTACT #:[phone] ETX [id number] I spent 35minutes in the visit, with more than 50% of the total khcr-sn-azrz time of the visit in counseling / coordination of care. Normal [facility] THERAPY NTon 04-11-2019 THERAPY NT HNO ID: [id number] Author: Diana (Pt) Carrillo Service: Physical Therapy Author Type: Physical Therapist Type: Therapy (PT/OT/Speech/Resp) Filed: 04/11/2019 4:04 PM Note Text: PHYSICAL THERAPY MISSED VISIT SERVICE DATE: 04/11/2019 SERVICE TIME: 1445 to 1445 ROOM: [place] [address] Attempted Treatment. Patient not seen due to (pt was ambulating on unit with wh walker on own). Will continue to follow and work towards other goals SIGNATURE: Diana Vizcaino PT PATIENT NAME: Rigo Diaz DATE: April 11, 2019 TIME: 4:01 PM Normal [facility] ALLIED HEALTHon 04-10-2019 ALLIED HEALTH HNO ID: [id number] Author: Maty (Rn) BIBI Brown Service: Diabetes Education Author Type: Registered Nurse Type: Allied Health Filed: 04/10/2019 12:46 PM Note Text: DIABETES EDUCATION PROGRESS NOTE SERVICE DATE: 04/10/2019 SERVICE TIME: 1159 RECOMMENDATIONS: Referral to outpatient diabetes self-management education program offered prn. Patient needs to follow-up with primary care physician after discharge. PATIENT HISTORY/ASSESSMENT: New diagnosis: Type 2 Consulted for DM ed. Met with pt. Pt states that endo has told him he does have DM, but adamant that he does not believe he has diabetes. Explained newest A1c values for dx. Explained the role of stress hormones and BG control during physical stress, short and long-term complications. Agrees that this may be what's happening but it isn't diabetes. Pt does agree to take Metformin as rx'd. Refuses BG meter/instruction. [facility] DM Ed packet with contact information provided to pt. TOPIC(S): Survival Skills: Basic diabetes mellitus disease process Medication therapy: Oral agent(s) - Metformin (Glucophage) Acute complications: Hypoglycemia, Hyperglycemia and Sick Day Management Patient Education/Health Promotion: Complication prevention Diabetes Management: Hemaglobin A1C EDUCATION: Cognitive ability: Alert and Oriented. Motivation to learn: Disinterested / Avoidant. Barriers to learning: None Family support: Unable to assess - Family not present Education Type: Individual instruction Written instruction - handouts Verbal instruction Response to education: States/Identifies. Education provided to: Patient. Teachback method used. Time Spent (Minutes): 15 SIGNATURE: Maty Brown RN PATIENT NAME: Rigo Diaz DATE: April 10, 2019 TIME: 12:32 PM PAGER: [phone] [facility] CASE MANAGEMon 04-10-2019 CASE MANAGEM HNO ID: [id number] Author: Felicity (Rn) BIBI Fry Service: Care Management Author Type: Registered Nurse Type: Care Mgt Progress Note Filed: 04/10/2019 1:22 PM Note Text: CARE MANAGEMENT PROGRESS NOTE SERVICE DATE: 04/10/2019 SERVICE TIME: 1:21 PM LOS: 16 days Needs Prior to Discharge: Discharge Prescriptions;Home Care Order Met with patient and family present at bedside. Patient presently has no wwalker at home and feels he would benefit from one at discharge. Script on chart for completion. [facility] notified. SIGNATURE: Felicity Fry RN PATIENT NAME: Rigo Diaz DATE: April 10, 2019 TIME: 1:21 PM PAGER/CONTACT #: [phone] [facility] CASE MANAGEM HNO ID: [id number] Author: Елена Land Service: Care Management Author Type: ? Type: Care Mgt Progress Note Filed: 04/10/2019 12:26 PM Note Text: CARE MANAGEMENT PROGRESS NOTE SERVICE DATE: 04/10/2019 SERVICE TIME: 1100 LOS: 16 days IM letter given to patient on . SIGNATURE: Елена Land PATIENT NAME: Rigo Diaz DATE: April 10, 2019 TIME: 12:26 PM PAGER/CONTACT #: [phone] [facility] CONSULT PROGon 04-10-2019 CONSULT PROG HNO ID: [id number] Author: Lise Luis Service: Endocrinology Author Type: Physician Type: Consult Progress Note Filed: 04/10/2019 2:01 PM Note Text: ENDOCRINOLOGY CONSULT PROGRESS NOTE SERVICE DATE: 04/10/2019 SERVICE TIME: 12:32 PM Subjective INTERVAL HPI: pt with diabetes mellitus type 2; off iv insulin gtt; off of pressors. Off of sc insulin; on oral agents now. Pt eating well, no nausea, no pain, ambulating well. On po amiodarone. DIET HEART HEALTHY Recent Labs 04/10/19 1134 04/10/19 0749 04/10/19 0528 04/09/19 2106 04/09/19 0523 04/08/19 0532 GLUC -- -- 118* -- -- 113* -- 100* GLUCOSEMETER 127* 123* -- 115* < > -- < > -- < > = values in this interval not displayed. Current Facility-Administered Medications Medication Dose Route Frequency - acetaminophen 650 mg tab(s) (TYLENOL) 650 mg ORAL q 6 H PRN - enoxaparin 40 mg injection (LOVENOX) 40 mg SUBCUTANEOUS DAILY - albuterol 2.5 mg /3 mL (0.083 %) 2.5 mg (PROVENTIL) 2.5 mg INHALATION q 2 H PRN - atorvastatin 40 mg tab(s) (LIPITOR) 40 mg ORAL AT BEDTIME - ondansetron (PF) 4 mg injection (ZOFRAN) 4 mg INTRAVENOUS q 6 H PRN - oxyCODONE-acetaminoph en 5-325 mg 1-2 tablet (PERCOCET) 1-2 tablet ORAL q 4 H PRN - morphine 2-4 mg injection 2-4 mg INTRAVENOUS q 1 H PRN - ipratropium-albuterol 3 mL nebulizer solution (DUONEB) 3 mL INHALATION q 4 H - pantoprazole DR 40 mg tab(s) (PROTONIX) 40 mg ORAL DAILY (6 AM) - bisacodyl 10 mg suppository (DULCOLAX) 10 mg RECTAL DAILY PRN - polyethylene glycol 3350 17 g packet (MIRALAX, GLYCOLAX) 17 g ORAL DAILY - senna-docusate 8.6-50 mg 1 tablet (SENNA-S) 1 tablet ORAL BID - brimonidine 0.2 % 1 Drop (ALPHAGAN) 1 Drop LEFT EYE BID () - latanoprost 0.005 % 1 Drop (XALATAN) 1 Drop BOTH EYES BID () - ferrous sulfate 325 mg tab(s) 325 mg ORAL BID w MEALS - ascorbic acid (vitamin C) 500 mg tab(s) (VITAMIN C) 500 mg ORAL BID - dextrose 40 % 15 g 15 g ORAL PRN Or - glucagon 1 mg injection (GLUCAGEN) 1 mg INTRAMUSCULAR PRN Or - dextrose 50 % 12.5 g injection 12.5 g INTRAVENOUS PRN - insulin lispro pen (rapid acting) (HumaLOG KWIKPEN) SUBCUTANEOUS w MEALS - amiodarone 400 mg tab(s) (PACERONE) 400 mg ORAL TID - NaCl 0.9% 2-10 mL 2-10 mL INTRAVENOUS q 12 H - melatonin 3 mg tab(s) 3 mg ORAL HS PRN - potassium chloride ER 20 mEq tab(s) (K-DUR, KLOR-CON) 20 mEq ORAL TID - magnesium oxide 400 mg tab(s) (MAG-OX) 400 mg ORAL BID - aspirin 81 mg chewable tab(s) 81 mg ORAL DAILY - clopidogrel 75 mg tab(s) (PLAVIX) 75 mg ORAL DAILY - metoprolol tartrate (short acting) 25 mg tab(s) (LOPRESSOR) 25 mg ORAL q 8 H - metFORMIN ER 1,000 mg tab(s) (GLUCOPHAGE XR) 1,000 mg ORAL DAILY (5 PM) - [START ON 04/11/2019] furosemide 40 mg tab(s) (LASIX) 40 mg ORAL DAILY Objective PHYSICAL EXAM: BP 110/62 Pulse 86 Temp (Src) 97.9 (Oral) Resp 18 Ht 6' 4 (1.93m) Wt 231 lb 12.8 oz (105.1kg) SpO2 97% BMI 28.23 kg/(m2). O2 Therapy: Room Air General Appearance: Well developed and well nourished appearance. No acute distress. ?Midsternal AND?SVG incision dry AND?intact, without redness, drainage or edema. Mouth/Pharynx: Teeth: Fair dentition. No lesions Neck: No JVD. Supple. Lungs: Normal respiratory effort. Clear lungs without rhonchi, rales, wheezing. Heart:?regular rhythm and?with some pvcs Peripheral Vascular/Arteries:?pu lses intact Abdomen:?soft, non-tender and bowel sounds present Neurologic/Psychiatri c: Oriented to person, place, time. Normal affect. No gross focal neurologic deficits. Extremities:?trace edema DATA: Diagnostic tests reviewed for today's visit: Most recent labs and imaging results. Assessment/Plan Diabetes mellitus type 2 ( new diagnosis) with postop hyperglycemia, HbA1c was 6.7 pre-op. Pt does not beleive he has DM since A1c is good! Was requiring iv insulin gtt post op. Pt off of pressors as of 04/05; taking po well; on prandial humalog 12 units qac tid (half dose if eats poorly). Transitioned to sq insulin Lantus 12 units qam and Humalog 12 units tid on 04/06. Added oral agents, Amaryl 0.5 mg daily am and Metformin ER 500 mg daily pm also on 04/06. Programmed insulin stopped, cont on SSI Humalog ac meals if BS >150, and oral agents. Stopped amaryl;continue metformin to 1 gm daily at home. Diabetes edu and nitrition to see pt before discharge home ? NSTEMI (non-ST elevated myocardial infarction) ? CAD severe, s/p CABG 04/02/2019 SIGNATURE: Lise Luis MD PATIENT NAME: Rigo Diaz DATE: April 102018 TIME: 2:01 PM PAGER: [phone] Normal [facility] CONSULT PROG HNO ID: [id number] Author: Caridad Sheets.Al Cunningham Service: Electrophysiology Author Type: Nurse Practitioner Type: Consult Progress Note Filed: 04/10/2019 11:00 AM Note Text: PROGRESS NOTE ELECTROPHYSIOLOGY SERVICE SERVICE DATE: 04/10/2019 SERVICE TIME: 10:42 AM Subjective INTERIM HISTORY: Patient sitting in chair at bedside, and friend present. He spoke with Dr. Kennedy this morning regarding EPS +/- ICD implantation. He is agreeable to the procedure and is on the schedule for Thursday 04/12. He denies chest pain, palpitations, lightheadedness and dizziness. He admits to frequent productive cough and mild SOB with activity. Review of Systems Constitutional: Negative for chills, diaphoresis and fever. Respiratory: Positive for cough and sputum production (thick, green/yellow). Negative for hemoptysis, shortness of breath (denies SOB at rest, admits SOB with activity) and wheezing. Cardiovascular: Positive for leg swelling (left leg). Negative for chest pain, palpitations, orthopnea and PND. Gastrointestinal: Negative for abdominal pain, constipation, diarrhea, heartburn, nausea and vomiting. Genitourinary: Negative for dysuria. Musculoskeletal: Negative for myalgias. Neurological: Negative for dizziness, loss of consciousness and headaches. Objective PHYSICAL EXAM: Body mass index is 28.22 kg/m?. O2 Therapy: Room Air Patient Vitals for the past 24 hrs: BP Temp Temp src Pulse Resp SpO2 Weight 04/10/19 1000 127/67 ? 04/10/19 0900 (!) 121/46 36.6 ?C (97.9 ?F) Oral 79 18 100 % ? 04/10/19 0753 ? ? ? 89 18 94 % ? 04/10/19 0517 137/65 36.6 ?C (97.9 ?F) Temporal 85 18 94 % 105.1 kg (231 lb 12.8 oz) 04/10/19 0327 ? ? ? 90 16 93 % ? 04/09/19 2343 ? ? ? 96 16 97 % ? 04/09/19 2322 114/56 36.5 ?C (97.7 ?F) Temporal 73 18 94 % ? 04/09/19 2103 120/58 36.7 ?C (98.1 ?F) Oral 80 18 94 % ? 04/09/19 1548 ? ? ? 84 18 95 % ? 04/09/19 1507 132/58 36.6 ?C (97.9 ?F) Oral 83 18 95 % ? 04/09/19 1213 ? ? ? 89 18 98 % ? 04/09/19 1147 123/56 36.6 ?C (97.9 ?F) Oral 88 16 97 % ? Pleasant, comfortable, not in acute distress. SKIN: warm AND dry; normal color. HEENT: Normocephalic. NECK: Supple, no JVD, no carotid bruits auscultated. LUNGS: Clear to auscultation bilaterally. Respirations unlabored at rest. CARDIAC: Normal S1, S2, regular rate AND rhythm, no significant murmurs or gallops auscultated. ABDOMEN: Soft, nontender to superficial palpation, bowel sounds auscultated. EXTREMITIES: +1 edema left lower extremity, ankle and foot. Patient wearing knee high BEKA hose bilaterally. NEURO: awake, alert, oriented X 3, moves all 4 extremities. PULSES: bilateral radial AND dorsalis pedis pulses palpable. MEDICATIONS: Current Facility-Administered Medications Medication Dose Route Frequency - acetaminophen 650 mg tab(s) (TYLENOL) 650 mg ORAL q 6 H PRN - enoxaparin 40 mg injection (LOVENOX) 40 mg SUBCUTANEOUS DAILY - albuterol 2.5 mg /3 mL (0.083 %) 2.5 mg (PROVENTIL) 2.5 mg INHALATION q 2 H PRN - atorvastatin 40 mg tab(s) (LIPITOR) 40 mg ORAL AT BEDTIME - ondansetron (PF) 4 mg injection (ZOFRAN) 4 mg INTRAVENOUS q 6 H PRN - oxyCODONE-acetaminoph en 5-325 mg 1-2 tablet (PERCOCET) 1-2 tablet ORAL q 4 H PRN - morphine 2-4 mg injection 2-4 mg INTRAVENOUS q 1 H PRN - ipratropium-albuterol 3 mL nebulizer solution (DUONEB) 3 mL INHALATION q 4 H - pantoprazole DR 40 mg tab(s) (PROTONIX) 40 mg ORAL DAILY (6 AM) - bisacodyl 10 mg suppository (DULCOLAX) 10 mg RECTAL DAILY PRN - polyethylene glycol 3350 17 g packet (MIRALAX, GLYCOLAX) 17 g ORAL DAILY - senna-docusate 8.6-50 mg 1 tablet (SENNA-S) 1 tablet ORAL BID - brimonidine 0.2 % 1 Drop (ALPHAGAN) 1 Drop LEFT EYE BID () - latanoprost 0.005 % 1 Drop (XALATAN) 1 Drop BOTH EYES BID () - ferrous sulfate 325 mg tab(s) 325 mg ORAL BID w MEALS - ascorbic acid (vitamin C) 500 mg tab(s) (VITAMIN C) 500 mg ORAL BID - dextrose 40 % 15 g 15 g ORAL PRN Or - glucagon 1 mg injection (GLUCAGEN) 1 mg INTRAMUSCULAR PRN Or - dextrose 50 % 12.5 g injection 12.5 g INTRAVENOUS PRN - insulin lispro pen (rapid acting) (HumaLOG KWIKPEN) SUBCUTANEOUS w MEALS - amiodarone 400 mg tab(s) (PACERONE) 400 mg ORAL TID - NaCl 0.9% 2-10 mL 2-10 mL INTRAVENOUS q 12 H - melatonin 3 mg tab(s) 3 mg ORAL HS PRN - potassium chloride ER 20 mEq tab(s) (K-DUR, KLOR-CON) 20 mEq ORAL TID - magnesium oxide 400 mg tab(s) (MAG-OX) 400 mg ORAL BID - aspirin 81 mg chewable tab(s) 81 mg ORAL DAILY - clopidogrel 75 mg tab(s) (PLAVIX) 75 mg ORAL DAILY - metoprolol tartrate (short acting) 25 mg tab(s) (LOPRESSOR) 25 mg ORAL q 8 H - metFORMIN ER 1,000 mg tab(s) (GLUCOPHAGE XR) 1,000 mg ORAL DAILY (5 PM) DATA: Diagnostic tests reviewed for today's visit: Most recent labs and imaging results. Most recent EKG - 04/08/19 - normal sinus rhythm with intraventricular conduction delay, 76 bpm. Most recent Echo - 04/03/19 CONCLUSIONS: - Technically difficult exam due to post op, suboptimal positioning and bandages/chest tubes/wound. - Exam indication: Hypotension - The left ventricle is normal in size. Left ventricular systolic function is normal. EF = 65 ? 5% (visual est.) Definity contrast used for endocardial border detection. - Study is suboptimal for assessment of pericardial effusion. Within the limitations of the study, there is no obvious pericardial effusion. Inflow velocities have no significant respiratory variation arguing against significant tamponade. - Exam was compared with the prior echocardiographic exam performed on 04/02/19. There is no significant change. TELEMETRY/SHELL MOLDER: Sinus rhtythm with PVCs, 70 bpm. Occasionally having NSVT 3-6 beats. Past 72 Hour Labs: Recent Labs 04/10/19 0528 04/08/19 0532 WBC -- -- 9.03 RBC -- -- 2.54* HB -- -- 8.3* HCT -- -- 25.7* MCV -- -- 101.2* MCH -- -- 32.7* MCHC -- -- 32.3 PLT -- -- 231 MPV -- -- 10.5 GLUC 118* < > 100* BUN 23* < > 18 CREAT 1.03 < > 0.90 NA 138 < > 137 K 4.3 < > 3.9 CHLOR 105 < > 107 CO2 25 < > 25 CA 8.9 < > 8.0* MG -- -- 2.0 < > = values in this interval not displayed. Last Lab Drawn: Triglyceride 183 03/28/2019 HDL Cholesterol 36 03/28/2019 LDL Calculated 13 03/28/2019 Cholesterol, Total 86 03/28/2019 Assessment/Plan Patient Active Hospital Problem List: NSVT - Discussed with patient, patient's and friend that he is still having NSVT, 3-6 beats. He is asymptomatic, normal EF. The plan is for Dr. Kennedy to perform an EPS +/- ICD implantation Thursday 04/12. If the EPS is positive, an ICD would be placed for secondary prevention of SCD. The patient is agreeable, all questions answered to the patient and visitors satisfaction. He was loaded with IV amiodarone and started on oral amiodarone 04/07/19. Continue amiodarone 400 mg TID and lopressor 25 mg Q8H. Continue to monitor heart rate AND rhythm. SIGNATURE: Caridad Cunningham APRN.MIGUELITO PATIENT NAME: Rigo Diaz DATE: April 10, 2019 TIME: 10:42 AM PAGER/CONTACT #: [phone] [facility] PROGRESSon 04-10-2019 PROGRESS HNO ID: [id number] Author: Virgie (Miguelito) MIGUELITO Campbell Service: Cardiovascular Surgery Author Type: Nurse Practitioner Type: Progress Notes Filed: 04/11/2019 11:43 AM Note Text: CARDIOTHORACIC SURGERY POSTOP PROGRESS NOTE SERVICE DATE: 04/10/2019 SERVICE TIME: 11:45 AM Subjective S/P SURGERY: Procedure(s) (LRB): CABG x 3 (lsvg-lad; svg-om; svg-pda, evh) DATE OF SURGERY: 04/02/2019 POSTOP DAY #8 LOS: 16 HPI: Mr. 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 He was found to have VT,?required?defibril lationx1?and amiodarone bolus?with conversion. He was rule in for NSTEMI and?underwent heart catheterization,?whic h revealed multivessel CAD. Patient was then transferred to?[facility] for revascularization evaluation.? ? INTERVAL EVENTS / PERTINENT ROS:?After 7 days of Brilinta holiday. Pre-op evaluation consisted of?vascular surgery due to left subclavian stenosis;?and pulmonary medicine due to poor FEV1 in the setting of current smoker?of 49 years.?Patient underwent bypass ?[address] Macias on 04/02.?Intra-Op, patient had dissection of the HUIZAR requiring replacement with vein graft to LAD.?Postop recovery in ICU was complicated by postop?vasoplegia required?fluid resuscitation;?acute postop coagulopathy required multiple dose of protamine;?postop PAF/NSVT?found on POD#2, started on?amiodarone drip and EP consult?(no interventions recommended);?acute blood loss anemia, require 1 unit PRBC?on POD#3. He was transferred out of ICU on POD#5. Patient is seen and examed today by myself while he sits in chair with his sister and by his side. Per Tele, there has been decreased NSVT noted. He denies LH/DZ, chest palpitation. Tolerating diet and pain, +BM and denies SOB. Walking well on unit without issues. EP study was cancelled as limitation on their schedule. Patient is being rescheduled for Monday. Objective Admission Weight: 105.9 kg (233 lb 7.5 oz) BP 110/62 Pulse 82 Temp 36.6 ?C (97.9 ?F) (Oral) Resp 18 Ht 193 cm (6' 4) Wt 105.1 kg (231 lb 12.8 oz) SpO2 100% BMI 28.22 kg/m? Body surface area is 2.37 meters squared. Min/Max/Average Temperature AND Blood Pressure: Temp (24hrs), Av.6 ?C (97.9 ?F), Min:36.5 ?C (97.7 ?F), Max:36.7 ?C (98.1 ?F) Systolic (24hrs), Av , Min:110 , Max:137 Diastolic (24hrs), Av, Min:46, Max:67 No intake or output data in the 24 hours ending 04/10/19 1144 TELEMETRY: normal sinus rhythm with PVCs PHYSICAL EXAM: General Appearance: well developed and no distress Skin: Midsternal incision dry AND intact., SVG incisions dry AND intact., warm and dry Lungs: clear and respiratory effort: normal Heart: regular rhythm, S1, S2 normal and no murmur Peripheral Vascular/Arteries: pulses intact, dorsalis pedis +2 and radial +2 Abdomen: soft, non-tender and bowel sounds present Genitourinary: voiding without difficulty Musculoskeletal: no deformities Neurologic/Psychiatri c: oriented to time, place and person, steady gait and with a walker Extremities: edema: 2+, LLL, advised to wear stocking Lines, Drains, and Airways Line Peripheral 03/30/19 1750 Right Forearm 20 Gauge 10 days Peripheral 04/02/19 Right Hand 18 Gauge 8 days Peripheral 04/09/19 1746 Left Antecubital 20 Gauge less than 1 day DATA: Diagnostic tests reviewed for today's visit: Significant Lab Results:?Review as BELOW ? Chest X-RAY?04/08/2019: IMPRESSION: 1. ?The patient has undergone interval sternotomy. 2. ?Interval development of bilateral pleural effusions right greater than left. 3. ?Increased density at the right lung base in part due to pleural effusion although some atelectasis or infiltrate may also be present. 4. ?Otherwise no interval change. ? Recent Labs 04/10/19 0528 04/09/19 0523 04/08/19 0532 RBC -- -- 2.54* WBC -- -- 9.03 HB -- -- 8.3* HCT -- -- 25.7* PLT -- -- 231 NA 138 137 137 K 4.3 3.8 3.9 CHLOR 105 106 107 CO2 25 24 25 BUN 23* 25* 18 CREAT 1.03 1.05 0.90 GLUC 118* 113* 100* CA 8.9 8.3* 8.0* MG -- -- 2.0 ANION 12 11 9 Assessment/Plan NSTEMI s/p CABG x 3 (svg-lad; svg-om; svg-pda; evh) -POD#8 -s/p acute KS in 10/2017 with hayden x 2 to rca and brillinta -continue ASA 81, atorvastatin 40, metoprolol?25?TID -Bowel regimen:?+BM -ambulate?as tolerated -Pain control with orals and morphine -heart healthy diet -vest - pacing wire removal 04/08 -Lasix 40 mg daily x 4 days with K ? Ventricular Tachycardia -short runs?periodically,?no nsustained -EP on consult:?EP study on Monday, if VT is inducible, then possible ICD placement -continue amiodarone?PO - BB to 25 mg?TID -Added Mag and K?supplement -no Life vest per EP ? Coagulopathy -resolved ? Post-op vasoplegia -resolved ? Anticipated post-op respiratory insufficiency -currently?resolved on RA -encourage IS, deep breathing and cough ? Acute blood loss anemia -HANDH?8.3, WITH STABLE HD -transfused 1 uPRBCs on 04/05 -Start iron, folate, ascorbic acid ? Leukocytosis -9?trending down -continue to monitor ? Left subclavian stenosis -take BP in right side ? DM2 -new finding -endo on consult ? HTN -c/w BB 25 TID , stable ? HLD -Atorvastatin ? Tobacco Use disorder -encourage cessation ? DVT ppx -lovenox, scds, beka hose ? GI ppx -protonix ? Dispo Home with [facility] when ready, possible this weekend after EP study/procedure ? Cardiac Rehabilitation: -Phase I teaching reviewed (including indications, restrictions, home exercise regimen, BP/Pulse monitoring, symptom management) -Phase II to be ordered at 1 week appointment ? Tests/Labs Ordered: 1. BMP monday SIGNATURE: Virgie Campbell APRN.CNP PATIENT NAME: Rigo Diaz DATE: April 10, 2019 TIME: 11:44 AM PAGER/CONTACT #:[phone] RAI [phone] I spent 40 minutes in the visit, with more than 50% of the total cfic-uy-tuvx time of the visit in counseling / coordination of care. Normal [facility] THERAPY NTon 04-10-2019 THERAPY NT HNO ID: [id number] Author: Petrona DrakeOtr/Gloria Davison Service: Occupational Therapy Author Type: Occupational Therapist Type: Therapy (PT/OT/Speech/Resp) Filed: 04/10/2019 1:59 PM Note Text: Occupational Therapy Treatment SERVICE DATE: 04/10/2019 SERVICE TIME: 1318 to 1336 ROOM: [place] [address] Recommended Discharge Disposition: Home Recommended Discharge Disposition Comments: Recommend return home with family support at discharge. Progressing well functionally for return to independence. Anticipated Discharge Needs: Physical Assist at Home;Supervision at Home Physical Assist at Home for: Cleaning;Laundry;Meal s;Shopping;Transporta tion;Safety(initial supervision with shower/LB bathing for safety) Supervision at Home due to: Other: See Comment(medical status/acuity) OT Recommendations to Nursing: ADL?s in chair;With assist of 1 person;To Bathroom for ADL?s /and or Toileting;OOB for meals;Transfer to Chair OT 6 Clicks Score: 22 Precautions/Activity Restrictions: Sternal Precaution/Activity Restriction Comments: IV access Isolation Type: None ASSESSMENT: Patient presents with good gains toward all established goals, with goals met and updated as noted below. Patient at a SBA level overall with wheeled walker for UB ADL, toileting, ADL mobility. SBA/CGA with LB bathing/dressing and shower transfer for safety. Improved functional activity tolerance, decreased pain and improved balance noted, however mildly impulsive and mildly SOB with exertion. Requires skilled OT to further review sternal precautions/compensat ory techniques for independent/consistan t adherence, provide further education in breathing techniques/energy conservation and increase independence, increased insight/safety awareness with ADL/mobility and to further increase functional activity tolerance to facilitate return to prior level of independence in ADL/mobility and allow safe return home with spouse at highest level of function. Patient Disposition at Start of Session: OOB in Chair;Call Rosales in Reach Patient Disposition at End of Session: OOB in Chair;Call Rosales in Reach Tolerated Full Session Occupational Therapy Problem List: Cognitive Deficit;Education Deficit;Safety Deficits;Impaired Self Care;Decreased Activity Tolerance;Decreased Strength;Functional Mobility Impairment;Balance Impaired Patient /Caregiver Goals: Go Home;Care For Self Goals for Plan of Care: Grooming with: Modified Independent Upper Body Bathing with: Modified Independent Upper Body Dressing with: Modified Independent Lower Body Bathing with: Supervision Lower Body Dressing with: Modified Independent Tolerate (minutes of functional activity): 30 Functional Activity with: Modified Independent Additional Goal 1: Patient to complete functional mobility for ADL with wheeled walker at modified indep level, with fair +safety awareness and good use of energy conservation strategies. Additional Goal 2: Pt to maintain sternal precautions without cues Transfer: Pt to complete transfers while maintaining sternal precautions without cues Progress Toward Goals: Progressing as expected Rehab Potential: Excellent PLAN: Treatment Frequency (times per week): 5(2-5) Current admission Treatment Interventions: Education;Self Care / Home Management;Strengthen ing;Functional Mobility Training;Cognitive Training Plan of Care developed with: Patient TREATMENT INTERVENTIONS: Therapy Diagnosis: Reduced mobility-other;Decrea sed activities of daily living (ADL);Muscle Weakness (generalized);Unstead iness on feet;Signs and Symptoms Involving Cognitive Functions and Awareness Interventions Provided: Self Fdc Management (34087) 1 unit Skilled Intervention(s): ADL training provided at bathroom level, with wheeled walker for mobility. Patient's functional performance with tasks with skilled assist noted below. Cues for increased upright posture/erect trunk and proximity to walker. Education for decreased weight bearing through walker with mobility and more use for balance. Education provided for energy conservation/activity pacing, with cues for standing/seated rests as needed, as well as pursed lip breathing. Tends to hurry, become slightly SOB with exertion/ADL tasks and needs cues to pace himself safely. Education for completion of lower body self care tasks in sitting, with shower seat in shower and sitting on chair for don/doff socks/shoes safely. Compensatory technique for don BEKA hose with use of plastic bag provided. Patient reports, My will help me. Review of plan of care and discharge recommendation provided. Positioned for comfort in chair, with call light and needs in reach at end of sesssion. Total Treatment Time (minutes): 18 SUBJECTIVE: Current Hospital Course: Chart reviewed; -POD#8 CABG x 3 (lsvg-lad; svg-om; svg-pda, evh) DATE OF SURGERY: 04/02/2019 Interval development of bilateral pleural effusions right greater than left. Plan for EP prior to discharge home, with patient reporting procedure tentatively scheduled for Monday. Progressing well toward discharge. Reason for Occupational Therapy Consult: safety assessment Relevant Past Medical History: acute mydocardial infarct, sustained vtach, HTN, DM2, Patient Report: Patient alert, pleasant and cooperative. No report of pain during session. I thought I was going to get to go today, but now I need another test and will likely not go until Monday. Home Environment Patient Lives With: Spouse Assistance Available: 24 Hour Entry To Home: Stairs Number Of Stairs Into Home: 3 Tub/Shower Type: tub/shower Laundry: can do Prior Functional Level: Within Functional Limits Prior Functional Level Comments: Patient independent with all ADLs, driving, and ambulation without device. Patient has a basement (full flight) where he enjoys spending time. OBJECTIVE: Cognition/Communicati on Deficits Responsiveness: Alert Follows Commands: 2-step Commands Executive Function Deficits: Insight to Deficits;Safety Awareness;Judgement(G ets in a hurry; mildly impulsive at times when SOB) Judgement Deficit: Minimal impairment Insight to Deficits: Minimal impairment Safety Awareness Deficit: Minimal impairment CURRENT FUNCTIONAL STATUS: Current Activities of Daily Living Assist Level Feeding Independent Grooming Stand By Assistance(/supervise d ; standing at sink in bathroom) Bathing Upper Body Stand By Assistance Bathing Lower Body Stand By Assistance(sitting to reach feet/crossing up at knee) Dressing Upper Body Stand By Assistance Dressing Lower Body Contact Guard Assistance(for safety, assist with BEKA hose to fully don) Toileting Supervision Instrumental Activities of Daily Living Assist Level Meal/Beverage Prep Stand By Assistance(simulated for ADL item retrieval, get a drink) Light Cleaning Laundry Medication Management with Strategies Functional Mobility Assist Level Rolling Supine to Sit Sit to Supine Scooting Modified Independent Sit to Stand Stand By Assistance Stand to Sit Stand By Assistance Bed to Chair Stand By Assistance Stand Pivot Wheeled Walker Toilet/Commode Stand By Assistance Functional Mobility Stand By Assistance Wheeled Walker Functional Mobility Comments: Adequate distance to/from bathroom, in room, hallway; distance adequate for household needs Shower Transfer: Stand By Assistance(/CGA) Balance: Static Standing;Dynamic Standing Static Standing Balance: Supervision Dynamic Standing Balance: Stand By Assistance(/CGA) Activity Tolerance: Sitting Activity;Standing Activity Sitting Activity: WFL for ADL needs at seated level Standing Activity: ADL mobility, grooming at sink, toileting tasks(mild SOB with exertion intermittently; cues to slow down) Standing Activity Tolerance (in minutes): 6 Please see discipline specific clinical documentation flowsheet for complete details for this therapy evaluation/treatment. SIGNATURE: ELO Quesada/L PATIENT NAME: Rigo Diaz DATE: April 10, 2019 TIME: 1:46 PM [facility] Ricardo 04-09-2019 MIGUELITON Telephone (AGCARDPOB ) DIAZRIGO VITAL ([id number]) 1950 M Date Time Provider Department 04/09/19 CARIDAD CUNNINGHAM (DISTRIBUTION CENTER ASSISTANT.EMBLEM CUTTER) AGCARDPOB During your visit today, we recorded the following information about you: Caridad Cunningham APRN.CNP 04/12/2019 2:08 PM Signed Patient had an ICD implant with Dr. Kennedy on 04/12. The patient is seeing Yudith Campbell on 04/19 - she will complete the wound check. Please call patient for follow up office visit in [address] Kennedy or PATTI. Thanks! Caridad Cunningham APRN.CNP Fide Rader 04/15/2019 2:13 PM Signed appt made for 07/15/19 with Roxy Renteria APRN.CNS. Fide Rader Allergies As of Date: 04/09/2019 (No Known Allergies) Date Reviewed: 04/09/2019 Reviewed by: Crystal (Rn) BIBI Boyd - Fully Assessed Reason for Visit: Appointment [[id number]] Prescriptions as of 04/09/2019 Sig: ATORVASTATIN 40 MG TABLET Take 40 mg by mouth once nadeem* X LISINOPRIL 20 MG-HYDROCHLOROT* Take 1 tablet by mouth once d* X TICAGRELOR 90 MG TABLET Take 90 mg by mouth twice magdalena* ALPHAGAN P 0.1 % EYE DROPS USE 1 DROP IN THE LEFT EYE TW* LATANOPROST 0.005 % EYE DROPS USE 1 DROP IN THE LEFT EYE DA* * METOPROLOL TARTRATE 50 MG TAB* Take one(1) tablet two(2) alvino* * CENTRUM SILVER TABLET Take one(1) tablet daily. * ECOTRIN LOW STRENGTH 81 MG TA* Take one(1) tablet daily. Problem List As Of Date 04/09/2019 Noted Resolved SKIN DISORDER NOS [L98.9] INVALID FOR* DIABETES MELLITUS TYPE II-UNCOMPL [E11.9] INVALID FOR* More... HYPERTENSION NOS [I10] INVALID FOR* More... More... HYPERLIPIDEMIA NEC/NOS [E78.5] INVALID FOR* More... CARDIAC DYSRHYTHMIA NOS [I49.9] INVALID FOR* More... TOBACCO USE DISORDER [F17.200] INVALID FOR* More... 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 OBESITY NOS [E66.9] INVALID FOR* More... CORONARY ATHEROSCLER UNSPEC VESSEL [I25.10] INVALID FOR* More... HEARING LOSS NOS [H91.90] INVALID FOR* More... LUMBAGO [M54.5] INVALID FOR* More... PERIPH VASCULAR DIS NOS [I73.9] INVALID FOR* More... Unspecified glaucoma [H40.9] INVALID FOR*09/03/2012 More... 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 He is S/P CABG x3 on 04/02/19. He presented to the ER with symptomatic sustained monomorphic VT and resulting in urgent cardioversion in the [place] ER. Post CABG he has had several episodes of NSVT. In the last 24 hours he has had multiple episodes of NSVT 5-10 beats. He denies symptoms during these episodes. He denies chest pain, palpitations, SOB at rest, wheezing, lightheadedness and dizziness. Review of Systems Respiratory: Positive for cough. Negative for shortness of breath (with exertion) and wheezing. Cardiovascular: Negative for chest pain, palpitations, orthopnea and PND. Musculoskeletal: Negative for myalgias. Neurological: Negative for dizziness, loss of consciousness and headaches. Objective PHYSICAL EXAM: Body mass index is 28.53 kg/m?. O2 Therapy: Room Air Patient Vitals for the past 24 hrs: BP Temp Temp src Pulse Resp SpO2 Weight 04/09/19 1213 ? ? ? 89 18 98 % ? 04/09/19 1147 123/56 36.6 ?C (97.9 ?F) Oral 88 16 97 % ? 04/09/19 1035 128/59 36.6 ?C (97.9 ?F) Oral 81 16 98 % ? 04/09/19 0811 ? ? ? 77 16 95 % ? 04/09/19 0802 123/73 ? 04/09/19 0752 (!) 109/49 36.3 ?C (97.3 ?F) Oral 72 16 94 % ? 04/09/19 0516 117/62 36.6 ?C (97.9 ?F) Oral 81 18 96 % 106.3 kg (234 lb 6.4 oz) 04/09/19 0356 ? ? ? 79 18 93 % ? 04/08/19 2335 94/51 36.8 ?C (98.2 ?F) Oral 80 18 94 % ? 04/08/19 2330 ? ? ? 75 18 95 % ? 04/08/19 2130 123/71 36.6 ?C (97.9 ?F) Oral 94 18 93 % ? 04/08/19 1937 ? ? ? 97 16 93 % ? 04/08/19 1549 ? ? ? 82 16 92 % ? 04/08/19 1528 114/53 36.5 ?C (97.7 ?F) Temporal Art 81 18 99 % ? Pleasant, comfortable, not in acute distress. SKIN: warm AND dry; normal color. HEENT: Normocephalic. NECK: Supple, no JVD, no carotid bruits auscultated. LUNGS: Clear to auscultation bilaterally. Respirations unlabored at rest. CARDIAC: Normal S1, S2, regular rate AND rhythm, no significant murmurs or gallops auscultated. ABDOMEN: Soft, nontender to superficial palpation, bowel sounds auscultated. EXTREMITIES: +1 edema left lower extremity, ankle and foot. NEURO: awake, alert, oriented X 3, moves all 4 extremities. PULSES: bilateral radial AND dorsalis pedis pulses palpable. MEDICATIONS: Current Facility-Administered Medications Medication Dose Route Frequency - acetaminophen 650 mg tab(s) (TYLENOL) 650 mg ORAL q 6 H PRN - enoxaparin 40 mg injection (LOVENOX) 40 mg SUBCUTANEOUS DAILY - albuterol 2.5 mg /3 mL (0.083 %) 2.5 mg (PROVENTIL) 2.5 mg INHALATION q 2 H PRN - atorvastatin 40 mg tab(s) (LIPITOR) 40 mg ORAL AT BEDTIME - ondansetron (PF) 4 mg injection (ZOFRAN) 4 mg INTRAVENOUS q 6 H PRN - oxyCODONE-acetaminoph en 5-325 mg 1-2 tablet (PERCOCET) 1-2 tablet ORAL q 4 H PRN - morphine 2-4 mg injection 2-4 mg INTRAVENOUS q 1 H PRN - ipratropium-albuterol 3 mL nebulizer solution (DUONEB) 3 mL INHALATION q 4 H - pantoprazole DR 40 mg tab(s) (PROTONIX) 40 mg ORAL DAILY (6 AM) - bisacodyl 10 mg suppository (DULCOLAX) 10 mg RECTAL DAILY PRN - polyethylene glycol 3350 17 g packet (MIRALAX, GLYCOLAX) 17 g ORAL DAILY - senna-docusate 8.6-50 mg 1 tablet (SENNA-S) 1 tablet ORAL BID - brimonidine 0.2 % 1 Drop (ALPHAGAN) 1 Drop LEFT EYE BID () - latanoprost 0.005 % 1 Drop (XALATAN) 1 Drop BOTH EYES BID () - ferrous sulfate 325 mg tab(s) 325 mg ORAL BID w MEALS - ascorbic acid (vitamin C) 500 mg tab(s) (VITAMIN C) 500 mg ORAL BID - dextrose 40 % 15 g 15 g ORAL PRN Or - glucagon 1 mg injection (GLUCAGEN) 1 mg INTRAMUSCULAR PRN Or - dextrose 50 % 12.5 g injection 12.5 g INTRAVENOUS PRN - insulin lispro pen (rapid acting) (HumaLOG KWIKPEN) SUBCUTANEOUS w MEALS - amiodarone 400 mg tab(s) (PACERONE) 400 mg ORAL TID - NaCl 0.9% 2-10 mL 2-10 mL INTRAVENOUS q 12 H - melatonin 3 mg tab(s) 3 mg ORAL HS PRN - potassium chloride ER 20 mEq tab(s) (K-DUR, KLOR-CON) 20 mEq ORAL TID - magnesium oxide 400 mg tab(s) (MAG-OX) 400 mg ORAL BID - aspirin 81 mg chewable tab(s) 81 mg ORAL DAILY - clopidogrel 75 mg tab(s) (PLAVIX) 75 mg ORAL DAILY - metoprolol tartrate (short acting) 25 mg tab(s) (LOPRESSOR) 25 mg ORAL q 8 H - metFORMIN ER 1,000 mg tab(s) (GLUCOPHAGE XR) 1,000 mg ORAL DAILY (5 PM) DATA: Diagnostic tests reviewed for today's visit: Most recent labs and imaging results. Most recent EKG - 04/08/19 - normal sinus rhythm with intraventricular conduction delay, 76 bpm. Most recent Echo - 04/03/19 CONCLUSIONS: - Technically difficult exam due to post op, suboptimal positioning and bandages/chest tubes/wound. - Exam indication: Hypotension - The left ventricle is normal in size. Left ventricular systolic function is normal. EF = 65 ? 5% (visual est.) Definity contrast used for endocardial border detection. - Study is suboptimal for assessment of pericardial effusion. Within the limitations of the study, there is no obvious pericardial effusion. Inflow velocities have no significant respiratory variation arguing against significant tamponade. - Exam was compared with the prior echocardiographic exam performed on 04/02/19. There is no significant change. TELEMETRY/SHELL MOLDER: Sinus rhythm with frequent PVCs, 80 bpm. Occasionally having NSVT 5-10 beats. Past 72 Hour Labs: Recent Labs 04/09/19 0523 04/08/19 0532 WBC -- 9.03 RBC -- 2.54* HB -- 8.3* HCT -- 25.7* MCV -- 101.2* MCH -- 32.7* MCHC -- 32.3 PLT -- 231 MPV -- 10.5 GLUC 113* 100* BUN 25* 18 CREAT 1.05 0.90 NA 137 137 K 3.8 3.9 CHLOR 106 107 CO2 24 25 CA 8.3* 8.0* MG -- 2.0 Last Lab Drawn: Triglyceride 183 03/28/2019 HDL Cholesterol 36 03/28/2019 LDL Calculated 13 03/28/2019 Cholesterol, Total 86 03/28/2019 Assessment/Plan Patient Active Hospital Problem List: NSVT - Discussed with patient that he is still having episodes of NSVT, 5-10 beats. He is asymptomatic, normal EF. After a detailed discussion with the patient, possible EPS +/- ICD implantation tomorrow to be determined by Dr. Kennedy. If the EPS is positive, an ICD would be placed for secondary prevention of sudden cardiac . The patient is agreeable to the plan, keep NPO after midnight until Dr. Kennedy sees him tomorrow. Loaded with IV amiodarone, started on oral amiodarone 04/07/19. Continue amiodarone 400 mg TID and lopressor 25 mg Q8H. Continue to monitor rhythm via telemetry. SIGNATURE: Caridad Cunningham APRN.EMBLEM CUTTER PATIENT NAME: Rigo Diaz DATE: April 09, 2019 TIME: 1:11 PM PAGER/CONTACT #: [phone] [facility] CONSULT PROG HNO ID: [id number] Author: Lise Luis Service: Endocrinology Author Type: Physician Type: Consult Progress Note Filed: 04/09/2019 12:34 PM Note Text: ENDOCRINOLOGY CONSULT PROGRESS NOTE SERVICE DATE: 04/09/2019 SERVICE TIME: 12:32 PM Subjective INTERVAL HPI: pt with diabetes mellitus type 2; off iv insulin gtt; off of pressors. Off of sc insulin; on oral agents now. Pt eating well, no nausea, no pain, ambulating well. On po amiodarone. DIET HEART HEALTHY DIET NPO Recent Labs 04/09/19 1149 04/09/19 0709 04/09/19 0523 04/08/19 2037 04/08/19 0532 04/07/19 0630 GLUC -- -- 113* -- -- 100* -- 89 GLUCOSEMETER 123* 120* -- 126* < > -- < > -- < > = values in this interval not displayed. Current Facility-Administered Medications Medication Dose Route Frequency - acetaminophen 650 mg tab(s) (TYLENOL) 650 mg ORAL q 6 H PRN - enoxaparin 40 mg injection (LOVENOX) 40 mg SUBCUTANEOUS DAILY - albuterol 2.5 mg /3 mL (0.083 %) 2.5 mg (PROVENTIL) 2.5 mg INHALATION q 2 H PRN - atorvastatin 40 mg tab(s) (LIPITOR) 40 mg ORAL AT BEDTIME - ondansetron (PF) 4 mg injection (ZOFRAN) 4 mg INTRAVENOUS q 6 H PRN - oxyCODONE-acetaminoph en 5-325 mg 1-2 tablet (PERCOCET) 1-2 tablet ORAL q 4 H PRN - morphine 2-4 mg injection 2-4 mg INTRAVENOUS q 1 H PRN - ipratropium-albuterol 3 mL nebulizer solution (DUONEB) 3 mL INHALATION q 4 H - pantoprazole DR 40 mg tab(s) (PROTONIX) 40 mg ORAL DAILY (6 AM) - bisacodyl 10 mg suppository (DULCOLAX) 10 mg RECTAL DAILY PRN - polyethylene glycol 3350 17 g packet (MIRALAX, GLYCOLAX) 17 g ORAL DAILY - senna-docusate 8.6-50 mg 1 tablet (SENNA-S) 1 tablet ORAL BID - brimonidine 0.2 % 1 Drop (ALPHAGAN) 1 Drop LEFT EYE BID () - latanoprost 0.005 % 1 Drop (XALATAN) 1 Drop BOTH EYES BID () - ferrous sulfate 325 mg tab(s) 325 mg ORAL BID w MEALS - ascorbic acid (vitamin C) 500 mg tab(s) (VITAMIN C) 500 mg ORAL BID - dextrose 40 % 15 g 15 g ORAL PRN Or - glucagon 1 mg injection (GLUCAGEN) 1 mg INTRAMUSCULAR PRN Or - dextrose 50 % 12.5 g injection 12.5 g INTRAVENOUS PRN - insulin lispro pen (rapid acting) (HumaLOG KWIKPEN) SUBCUTANEOUS w MEALS - amiodarone 400 mg tab(s) (PACERONE) 400 mg ORAL TID - NaCl 0.9% 2-10 mL 2-10 mL INTRAVENOUS q 12 H - melatonin 3 mg tab(s) 3 mg ORAL HS PRN - potassium chloride ER 20 mEq tab(s) (K-DUR, KLOR-CON) 20 mEq ORAL TID - magnesium oxide 400 mg tab(s) (MAG-OX) 400 mg ORAL BID - aspirin 81 mg chewable tab(s) 81 mg ORAL DAILY - clopidogrel 75 mg tab(s) (PLAVIX) 75 mg ORAL DAILY - metoprolol tartrate (short acting) 25 mg tab(s) (LOPRESSOR) 25 mg ORAL q 8 H - potassium chloride ER 20 mEq tab(s) (K-DUR, KLOR-CON) 20 mEq ORAL ONCE - metFORMIN ER 1,000 mg tab(s) (GLUCOPHAGE XR) 1,000 mg ORAL DAILY (5 PM) Objective PHYSICAL EXAM: BP 123/56 Pulse 89 Temp (Src) 97.9 (Oral) Resp 18 Ht 6' 4 (1.93m) Wt 234 lb 6.4 oz (106.3kg) SpO2 98% BMI 28.54 kg/(m2). O2 Therapy: Room Air, Liters: 0, %FIO2: 21 General Appearance: Well developed and well nourished appearance. No acute distress. ?Midsternal AND?SVG incision dry AND?intact, without redness, drainage or edema. Mouth/Pharynx: Teeth: Fair dentition. No lesions Neck: No JVD. Supple. Lungs: Normal respiratory effort. Clear lungs without rhonchi, rales, wheezing. Heart:?regular rhythm and?with some pvcs Peripheral Vascular/Arteries:?pu lses intact Abdomen:?soft, non-tender and bowel sounds present Neurologic/Psychiatri c: Oriented to person, place, time. Normal affect. No gross focal neurologic deficits. Extremities:?trace edema DATA: Diagnostic tests reviewed for today's visit: Most recent labs and imaging results. Assessment/Plan Diabetes mellitus type 2 ( new diagnosis) with postop hyperglycemia, HbA1c was 6.7 pre-op. Pt does not beleive he has DM since A1c is good! Was requiring iv insulin gtt post op. Pt off of pressors as of 04/05; taking po well; on prandial humalog 12 units qac tid (half dose if eats poorly). Transitioned to sq insulin Lantus 12 units qam and Humalog 12 units tid on 04/06. Added oral agents, Amaryl 0.5 mg daily am and Metformin ER 500 mg daily pm also on 04/06. Programmed insulin stopped, cont on SSI Humalog ac meals if BS >150, and oral agents. Will d/c amary; and increase metformin to 1 gm daily. Diabetes edu and nitrition to see pt before discharge home ? NSTEMI (non-ST elevated myocardial infarction) ? CAD severe, s/p CABG 04/02/2019 SIGNATURE: Lise Luis MD PATIENT NAME: Rigo Diaz DATE: April 092018 TIME: 12:34 PM PAGER: [phone] [facility] NURSING PROGon 04-09-2019 NURSING PROG HNO ID: [id number] Author: Crystal (Rn) BIBI Boyd Service: ? Author Type: Registered Nurse Type: Nursing Progress Note Filed: 04/09/2019 11:11 AM Note Text: Spoke to Dr. Campbell about Pt run of 9 beats in V-Tach. Pt asymptomatic. Explained I Noticed he goes into it with exertion, walking, turning, and using the RR to have a bowel movement. Re-educated Pt to no straining with activities. Pt denies any discomforts at this time. VS: T 36.6, HR 83, R 18, 128/59(76), 98 RA Note placed by: Crystal Boyd RN [facility] PROGRESSon 04-09-2019 PROGRESS HNO ID: [id number] Author: Virgie Pa) MIGUELITO Campbell Service: Cardiovascular Surgery Author Type: Nurse Practitioner Type: Progress Notes Filed: 04/11/2019 11:43 AM Note Text: CARDIOTHORACIC SURGERY POSTOP PROGRESS NOTE SERVICE DATE: 04/09/2019 SERVICE TIME: 11:45 AM Subjective S/P SURGERY: Procedure(s) (LRB): CABG x 3 (lsvg-lad; svg-om; svg-pda, evh);? DATE OF SURGERY: 04/02/2019 POSTOP DAY #7 LOS: 15 HPI: Mr. Diaz is a 68 years of man with PMH significant for HTN, HLD, T2DM, left subclavian artery stenosis, GERD, and current tobacco smoker, CAD with acute KS s/p HAYDEN ?2 to RCA (October,, has been on Brilinta), who presented to [place] ED with c/o chest pain on 03/23/2019. He was found to have VT, required defibrillationx1 and amiodarone bolus with conversion. He was rule in for NSTEMI and underwent heart catheterization, which revealed multivessel CAD. Patient was then transferred to [facility] for revascularization evaluation. ? INTERVAL EVENTS / PERTINENT ROS: After 7 days of ilinta holiday. Pre-op evaluation consisted of vascular surgery due to left subclavian stenosis; and pulmonary medicine due to poor FEV1 in the setting of current smoker of 49 years. Patient underwent bypass ?[address] Macias on 04/02. Intra-Op, patient had dissection of the HUIZAR requiring replacement with vein graft to LAD. Postop recovery in ICU was complicated by postop vasoplegia required fluid resuscitation; acute postop coagulopathy required multiple dose of protamine; postop PAF/NSVT found on POD#2, started on amiodarone drip and EP consult (no interventions recommended); acute blood loss anemia, require 1 unit PRBC on POD#3. He was transferred out of ICU on POD#5. Patient is seen and examed by myself today while he sits on chair. He is restless as he states that he wants to go home. Denies chest palpitation/discomfor t, no diaphoresis episode like he had yesterday. No SOB/MCBRIDE. Tolerating pain. Denies N/V. Per nursing, he has had frequent nonsustained VT (5-9 beat runs )last night and this AM without being symptomatic. Objective Admission Weight: 105.9 kg (233 lb 7.5 oz) BP 128/59 Pulse 81 Temp 36.6 ?C (97.9 ?F) (Oral) Resp 16 Ht 193 cm (6' 4) Wt 106.3 kg (234 lb 6.4 oz) SpO2 98% BMI 28.53 kg/m? Body surface area is 2.39 meters squared. Min/Max/Average Temperature AND Blood Pressure: Temp (24hrs), Av.6 ?C (97.8 ?F), Min:36.3 ?C (97.3 ?F), Max:36.8 ?C (98.2 ?F) Systolic (24hrs), Av , Min:94 , Max:145 Diastolic (24hrs), Av, Min:49, Max:73 Intake/Output Summary (Last 24 hours) at 04/09/2019 1145 Last data filed at 04/08/2019 1315 Gross per 24 hour Intake 180 ml Output ? Net 180 ml TELEMETRY: normal sinus rhythm with frequent nonsustained VT and PVCs PHYSICAL EXAM: General Appearance: well developed and no distress Lungs: clear and respiratory effort: normal Heart: regular rhythm, S1, S2 normal and no murmur Peripheral Vascular/Arteries: pulses intact, dorsalis pedis +2 and radial +2 Abdomen: soft, non-tender and bowel sounds present Genitourinary: voiding without difficulty Musculoskeletal: no deformities Neurologic/Psychiatri c: oriented to time, place and person and steady gait Extremities: edema: 1+, BLE Lines, Drains, and Airways Line Peripheral 03/30/19 1750 Right Forearm 20 Gauge 9 days Peripheral 04/02/19 Right Hand 18 Gauge 7 days DATA: Diagnostic tests reviewed for today's visit: Significant Lab Results: Review as BELOW ? Chest X-RAY 04/08/2019: IMPRESSION: 1. ?The patient has undergone interval sternotomy. 2. ?Interval development of bilateral pleural effusions right greater than left. 3. ?Increased density at the right lung base in part due to pleural effusion although some atelectasis or infiltrate may also be present. 4. ?Otherwise no interval change. Recent Labs 04/09/19 0523 04/08/19 0532 04/07/19 0630 RBC -- 2.54* 2.40* WBC -- 9.03 9.22* HB -- 8.3* 8.0* HCT -- 25.7* 24.4* PLT -- 231 198 NA 137 137 140 K 3.8 3.9 3.6 CHLOR 106 107 107 CO2 24 25 26 BUN 25* 18 17 CREAT 1.05 0.90 0.87 GLUC 113* 100* 89 CA 8.3* 8.0* 8.0* MG -- 2.0 -- ANION 11 9 11 Assessment/Plan NSTEMI s/p CABG x 3 (svg-lad; svg-om; svg-pda; evh) -POD#7 -s/p acute KS in 10/2017 with hayden x 2 to rca and brillinta -continue ASA 81, atorvastatin 40, metoprolol 25 TID -Bowel regimen: Added prune juice and Dulcolax -ambulate?as tolerated -Pain control with orals and morphine -heart healthy diet -vest - pacing wire removal 04/08 -Lasix 40 mg ?1 today with additional K ? Ventricular Tachycardia -short runs periodically, nonsustained -EP on consult: No intervention recommended but tele monitoring -continue amiodarone PO -appreciate recs -Up BB to 25 mg TID -Added Mag and K supplement -discussed with Dr. Mishra today: personally, he would like to consider EP study but rather have Dr. Kennedy review tomorrow once returned, keep patient NPO after midnight for potential EP study in AM as per discussion with Dr. Mishra. - call made to life vest rep who verify that patient is candidate for life vest as he required defibrillated x1 during his recent NSTEMI event. -plan to review with Dr. Macias, patient is made aware as well and verbalized understanding of additional stay. ? Coagulopathy -resolved ? Post-op vasoplegia -resolved ? Anticipated post-op respiratory insufficiency -currently?resolved on RA -encourage IS, deep breathing and cough ? Acute blood loss anemia -HANDH?8.3, WITH STABLE HD -transfused 1 uPRBCs on 04/05 -Start iron, folate, ascorbic acid ? Leukocytosis -9?trending down -continue to monitor ? Left subclavian stenosis -take BP in right side ? DM2 -new finding -endo on consult ? HTN -c/w BB 25 TID , stable ? HLD -Atorvastatin ? Tobacco Use disorder -encourage cessation ? DVT ppx -lovenox, scds, beka hose ? GI ppx -protonix ? Dispo Home when ready possible in 24hrs ? Cardiac Rehabilitation: -Phase I teaching reviewed (including indications, restrictions, home exercise regimen, BP/Pulse monitoring, symptom management) -Phase II to be ordered at 1 week appointment Tests/Labs Ordered: 1. BMP SIGNATURE: Virgie Campbell APRN.CNP PATIENT NAME: Rigo Diaz DATE: April 09, 2019 TIME: 11:45 AM PAGER/CONTACT #:[phone] ETX [id number] I spent 50 minutes in the visit, with more than 50% of the total [id number]-rj-[id number] time of the visit in counseling / coordination of care. Normal [facility] THERAPY NTon 10-01-2019 THERAPY NT HNO ID: [id number] Author: Leela Petit Service: Physical Therapy Author Type: Welfare Eligibility Worker Type: Therapy (PT/OT/Speech/Resp) Filed: 04/09/2019 3:23 PM Note Text: Attestation signed by Patricia DrakePtLindsay Wiggins at 04/09/2019 4:16 PM I reviewed and agree with the documentation corresponding to this therapy visit. SIGNATURE: Patricia Wiggins, PT DATE: April 09, 2019 TIME: 4:16 PM Physical Therapy Treatment SERVICE DATE: 04/09/2019 SERVICE TIME: 1435 to 1500 ROOM: [id number] Recommended Discharge Disposition: Home Anticipated Discharge Needs: Physical Assist at Home;Supervision at Home Physical Assist at Home for: Self Care;Shopping;Safety; Laundry;Cleaning;Meal s;Transportation Supervision at Home due to: (medical status change) Recommended Discharge Equipment: Wheeled Walker PT Recommendations to Nursing: Ambulate with device;To bathroom;In halls;OOB for Meals;With assist of 2 people;Sit at edge of bed;Transfer to/from chair Device: Wheeled Walker PT 6 Clicks Score: 23 Precautions/Activity Restrictions: Fall Risk;Sternal;Lines/Tu bes/Drains;Cardiac Precaution/Activity Restriction Comments: Lines tubes, sternal precautions d/t CABG Isolation Type: None ASSESSMENT : Patient progressing towards goals for discharge to Home , patient ambulated without LOB, occasional verbal cues to maintain sternal precautions. Patient Disposition at Start of Session: Supine in Bed;Call Rosales in Reach Patient Disposition at End of Session: OOB in Chair;Call Rosales in Reach Tolerated Full Session Physiologic Response;Fatigue(Alba ls - and acuity of CABG) Physical Therapy Problem List: Pain;Safety Deficits;Impaired Self Care;Decreased Activity Tolerance;Decreased Range Of Motion;Decreased Strength;Functional Mobility Impairment;Balance Impaired Patient /Caregiver Goals: Go Home Goals for Plan of Care: Able to perform HEP with: Independent Rolling with: Stand By Assistance Transfer supine to/from sit with: Stand By Assistance Transfer sit to/from stand with: Stand By Assistance Ambulate with: Stand By Assistance Distance: 250 Device: Wheeled Walker;No Device Ambulate up and down steps with: Minimal Assistance Number of steps: 3 Device: Rail Progress Toward Goals: Progressing as expected Rehab Potential: Good PLAN: Treatment Frequency (times per week): 5(2-5) Current admission Treatment Interventions: Education;Self Care / Home Management;Energy Conservation Training;Strengthenin g;Functional Mobility Training;Balance Training;Neuromuscula r Re-education;Pain Management Plan of Care developed with: Patient TREATMENT INTERVENTIONS: Therapy Diagnosis: Reduced mobility-other;Decrea sed activities of daily living (ADL);Unsteadiness on feet;Lack of coordination-other;Di fficulty walking-musculoskelet al Interventions Provided: Therapeutic Activity (32011);Gait Training (67792) Therapeutic Activity (50952) Treatment Minutes: 13 1 unit Skilled Intervention(s): Instructed patient in log roll technique Instructed patient in supine to sit pushing with upper extremities to sit up via log roll with verbal cues To maintain sternal precautions. Instruction in sit to and from stand technique with proper hand placement and body positioning at edge of bed/chair with verbal Cues for safety. Gait Training (36201) Treatment Minutes: 10 1 unit Skilled Intervention(s): Instruction in use of equipment, cues for sequence and pattern with ambulation with wheeled walker , ambulated without LOB , verbal cues for walker placement. Patient declined for trail with steps, patient reports he only has 2 steps with 1 rail . Educated patient verbally on proper technique with stair training. Total Timed Code Treatment Minutes: 23 Total Treatment Time (minutes): 23 SUBJECTIVE: Current Hospital Course: Chart reviewed and no significant medical updates relevant to therapy were noted Reason for Physical Therapy Consult : eval and treat Relevant Past Medical History: acute mydocardial infarct, sustained vtach, HTN, DM2, Patient Report: Patient in bed and agreeable to PT session, patient without complaints. Home Environment Patient Lives With: Spouse Assistance Available: 24 Hour Entry To Home: Stairs Number Of Stairs Into Home: 3 Tub/Shower Type: tub/shower Laundry: can do Prior Functional Level: Within Functional Limits Prior Functional Level Comments: Patient independent with all ADLs, driving, and ambulation without device. Patient has a basement (full flight) where he enjoys spending time. OBJECTIVE: CURRENT FUNCTIONAL STATUS: Current Functional Mobility Assist Level Additional Information Rolling Stand By Assistance Supine to Sit Stand By Assistance Sit to Supine Scooting Sit to Stand Stand By Assistance Stand to Sit Stand By Assistance Bed to Chair Toilet/Commode Gait Stand By Assistance Gait Device: Wheeled Walker Gait Distance (feet): 200 feet Stairs Curb Step Car Transfer General Gait Deviations: Zuleyma decreased;Step length decreased;Non-functio nal gait speed -HLM: 7: Walk 25 feet or more Please see discipline specific clinical documentation flowsheet for complete details for this therapy evaluation/treatment. SIGNATURE: Leela Petit PTA PATIENT NAME: Rigo Diaz DATE: April 09, 2019 TIME: 3:14 PM [facility] CASE MANAGEMon 04-08-2019 CASE MANAGEM HNO ID: [id number] Author: Felicity (Rn) BIBI Fry Service: Care Management Author Type: Registered Nurse Type: Care Mgt Progress Note Filed: 04/08/2019 9:31 AM Note Text: CARE MANAGEMENT PROGRESS NOTE SERVICE DATE: 04/08/2019 SERVICE TIME: 9:29 AM LOS: 14 days Needs Prior to Discharge: Discharge Prescriptions;Home Care Order Notes reviewed. Patient s/p CABG POD #6. Plan is home with [facility] at discharge. SIGNATURE: Felicity Fry RN PATIENT NAME: Rigo Diaz DATE: April 08, 2019 TIME: 9:29 AM PAGER/CONTACT #: [phone] [facility] CONSULT PROGon 04-08-2019 CONSULT PROG HNO ID: [id number] Author: Caridad Cunningham ([email or web address].Cnp) Service: Electrophysiology Author Type: Nurse Practitioner Type: Consult Progress Note Filed: 04/08/2019 1:38 PM Note Text: PROGRESS NOTE ELECTROPHYSIOLOGY SERVICE SERVICE DATE: 04/08/2019 SERVICE TIME: 1:02 PM Subjective INTERIM HISTORY: Patient is sitting in bedside recliner to eat lunch. He is s/p CABG x 3 on 04/02/19. Prior to CABG he had symptomatic sustained VT resulting in urgent cardioversion upon admission to [facility]. Post CABG he has had a several episodes of NSVT. He denies chest discomfort, palpitations, SOB at rest, wheezing, lightheadedness and dizziness. Review of Systems Constitutional: Negative for chills, diaphoresis and fever. Respiratory: Positive for cough. Negative for hemoptysis, sputum production, shortness of breath (SOB with exertion) and wheezing. Cardiovascular: Negative for chest pain, palpitations, orthopnea, leg swelling and PND. Musculoskeletal: Negative for myalgias. Neurological: Negative for dizziness, loss of consciousness and headaches. Objective PHYSICAL EXAM: Body mass index is 29.17 kg/m?. O2 Therapy: Room Air Patient Vitals for the past 24 hrs: BP Temp Temp src Pulse Resp SpO2 04/08/19 1201 113/66 ? ? 73 18 96 % 04/08/19 1200 ? ? ? 90 18 96 % 04/08/19 1145 (!) 124/47 ? ? 76 16 96 % 04/08/19 1130 116/52 ? ? 73 16 ? 04/08/19 1115 118/64 36.7 ?C (98.1 ?F) Oral 79 16 100 % 04/08/19 0815 115/51 36.7 ?C (98 ?F) Oral 86 ? 96 % 04/08/19 0739 ? ? ? 80 16 94 % 04/08/19 0644 150/74 ? ? 101 18 94 % 04/08/19 0518 140/73 36.6 ?C (97.9 ?F) Oral 80 18 94 % 04/08/19 0400 ? ? ? 91 18 92 % 04/08/19 0042 145/66 36.9 ?C (98.4 ?F) Oral 89 18 95 % 04/07/19 2348 ? ? ? 85 18 94 % 04/07/19 2111 156/73 37 ?C (98.6 ?F) Oral 87 20 98 % 04/07/19 1940 ? ? ? 91 20 100 % 04/07/19 1900 153/77 ? ? 88 ? ? 04/07/19 1800 136/59 ? ? 87 ? ? 04/07/19 1703 ? 20 100 % 04/07/19 1700 151/90 ? ? 86 ? ? 04/07/19 1600 126/59 ? ? 77 ? 100 % 04/07/19 1500 125/57 36.8 ?C (98.2 ?F) Temporal 79 ? ? 04/07/19 1400 130/58 ? ? 86 ? ? 04/07/19 1335 ? 20 ? Pleasant, comfortable, not in acute distress. SKIN: warm AND dry; normal color. HEENT: Normocephalic. NECK: Supple, no JVD, no carotid bruits auscultated. LUNGS: Diminished bibasilar posteriorly, clear otherwise. Bilateral rhonci anteriorly, cleared with cough. Respirations unlabored at rest. CARDIAC: Normal S1, S2, regular rate AND rhythm, no significant murmurs or gallops auscultated. ABDOMEN: Soft, nontender to superficial palpation, bowel sounds auscultated. EXTREMITIES: +2 edema left lower extremity, foot and ankle. NEURO: awake, alert, oriented X 3, moves all 4 extremities. PULSES: bilateral radial AND dorsalis pedis pulses palpable. MEDICATIONS: Current Facility-Administered Medications Medication Dose Route Frequency - acetaminophen 650 mg tab(s) (TYLENOL) 650 mg ORAL q 6 H PRN - enoxaparin 40 mg injection (LOVENOX) 40 mg SUBCUTANEOUS DAILY - albuterol 2.5 mg /3 mL (0.083 %) 2.5 mg (PROVENTIL) 2.5 mg INHALATION q 2 H PRN - atorvastatin 40 mg tab(s) (LIPITOR) 40 mg ORAL AT BEDTIME - ondansetron (PF) 4 mg injection (ZOFRAN) 4 mg INTRAVENOUS q 6 H PRN - oxyCODONE-acetaminoph en 5-325 mg 1-2 tablet (PERCOCET) 1-2 tablet ORAL q 4 H PRN - morphine 2-4 mg injection 2-4 mg INTRAVENOUS q 1 H PRN - ipratropium-albuterol 3 mL nebulizer solution (DUONEB) 3 mL INHALATION q 4 H - pantoprazole DR 40 mg tab(s) (PROTONIX) 40 mg ORAL DAILY (6 AM) - bisacodyl 10 mg suppository (DULCOLAX) 10 mg RECTAL DAILY PRN - polyethylene glycol 3350 17 g packet (MIRALAX, GLYCOLAX) 17 g ORAL DAILY - senna-docusate 8.6-50 mg 1 tablet (SENNA-S) 1 tablet ORAL BID - brimonidine 0.2 % 1 Drop (ALPHAGAN) 1 Drop LEFT EYE BID () - latanoprost 0.005 % 1 Drop (XALATAN) 1 Drop BOTH EYES BID () - ferrous sulfate 325 mg tab(s) 325 mg ORAL BID w MEALS - ascorbic acid (vitamin C) 500 mg tab(s) (VITAMIN C) 500 mg ORAL BID - metFORMIN ER 500 mg tab(s) (GLUCOPHAGE XR) 500 mg ORAL DAILY (5 PM) - glimepiride 0.5 mg tab(s) (AMARYL) 0.5 mg ORAL DAILY WITH BREAKFAST - dextrose 40 % 15 g 15 g ORAL PRN Or - glucagon 1 mg injection (GLUCAGEN) 1 mg INTRAMUSCULAR PRN Or - dextrose 50 % 12.5 g injection 12.5 g INTRAVENOUS PRN - insulin lispro pen (rapid acting) (HumaLOG KWIKPEN) SUBCUTANEOUS w MEALS - amiodarone 400 mg tab(s) (PACERONE) 400 mg ORAL TID - NaCl 0.9% 2-10 mL 2-10 mL INTRAVENOUS q 12 H - melatonin 3 mg tab(s) 3 mg ORAL HS PRN - potassium chloride ER 20 mEq tab(s) (K-DUR, KLOR-CON) 20 mEq ORAL TID - magnesium oxide 400 mg tab(s) (MAG-OX) 400 mg ORAL BID - [START ON 04/09/2019] aspirin 81 mg chewable tab(s) 81 mg ORAL DAILY - [START ON 04/09/2019] clopidogrel 75 mg tab(s) (PLAVIX) 75 mg ORAL DAILY - metoprolol tartrate (short acting) 25 mg tab(s) (LOPRESSOR) 25 mg ORAL q 8 H DATA: Diagnostic tests reviewed for today's visit: Most recent labs and imaging results. Most recent EKG - 04/08/19 - normal sinus rhythm with intraventricular conduction delay, 76 bpm. Most recent Echo - 04/03/19 CONCLUSIONS: - Technically difficult exam due to post op, suboptimal positioning and bandages/chest tubes/wound. - Exam indication: Hypotension - The left ventricle is normal in size. Left ventricular systolic function is normal. EF = 65 ? 5% (visual est.) Definity contrast used for endocardial border detection. - Study is suboptimal for assessment of pericardial effusion. Within the limitations of the study, there is no obvious pericardial effusion. Inflow velocities have no significant respiratory variation arguing against significant tamponade. - Exam was compared with the prior echocardiographic exam performed on 04/02/19. There is no significant change. TELEMETRY: Normal sinus rhythm, rates in the 80s, frequent premature ventricular contractions. A few runs of NSVT in last 24 hours, longest episode 13 beats. Past 72 Hour Labs: Recent Labs 04/08/19 0532 WBC 9.03 RBC 2.54* HB 8.3* HCT 25.7* MCV 101.2* MCH 32.7* MCHC 32.3 PLT 231 MPV 10.5 GLUC 100* BUN 18 CREAT 0.90 NA 137 K 3.9 CHLOR 107 CO2 25 CA 8.0* MG 2.0 Last Lab Drawn: Triglyceride 183 03/28/2019 HDL Cholesterol 36 03/28/2019 LDL Calculated 13 03/28/2019 Cholesterol, Total 86 03/28/2019 Assessment/Plan Patient Active Hospital Problem List: NSVT - Several episodes of NSVT on telemetry reviewed. Longest episode was 13 beats, patient asymptomatic, normal EF. Oral amiodarone initiated 04/07/19, prior to that had been on IV amiodarone. Current dose of amiodarone is 400 mg TID. He is also taking Lopressor 25 mg Q8H. CMP reviewed - levels WNL. Taking magnesium oxide 400 mg BID. Continue to monitor frequency of NSVT via telemetry. SIGNATURE: Caridad Cunningham APRN.MIGUELITO PATIENT NAME: Rigo Diaz DATE: April 08, 2019 TIME: 1:02 PM PAGER/CONTACT #: [phone] Normal [facility] CONSULT PROG HNO ID: [id number] Author: Lise Luis Service: Endocrinology Author Type: Physician Type: Consult Progress Note Filed: 04/08/2019 8:17 AM Note Text: ENDOCRINOLOGY CONSULT PROGRESS NOTE SERVICE DATE: 04/08/2019 SERVICE TIME: 8:15 AM Subjective INTERVAL HPI: pt with diabetes mellitus type 2; off iv insulin gtt; off of pressors. On sc insulin and oral agents now. Pt eating well, no nausea, no pain, ambulating well. On po amiodarone. DIET HEART HEALTHY Recent Labs 04/08/19 0725 04/08/19 0532 04/07/19 2137 04/07/19 1634 04/07/19 0630 GLUC -- 100* -- -- -- 89 GLUCOSEMETER 125* -- 113* 78 < > -- < > = values in this interval not displayed. Current Facility-Administered Medications Medication Dose Route Frequency - acetaminophen 650 mg tab(s) (TYLENOL) 650 mg ORAL q 6 H PRN - enoxaparin 40 mg injection (LOVENOX) 40 mg SUBCUTANEOUS DAILY - albuterol 2.5 mg /3 mL (0.083 %) 2.5 mg (PROVENTIL) 2.5 mg INHALATION q 2 H PRN - atorvastatin 40 mg tab(s) (LIPITOR) 40 mg ORAL AT BEDTIME - ondansetron (PF) 4 mg injection (ZOFRAN) 4 mg INTRAVENOUS q 6 H PRN - oxyCODONE-acetaminoph en 5-325 mg 1-2 tablet (PERCOCET) 1-2 tablet ORAL q 4 H PRN - morphine 2-4 mg injection 2-4 mg INTRAVENOUS q 1 H PRN - ipratropium-albuterol 3 mL nebulizer solution (DUONEB) 3 mL INHALATION q 4 H - aspirin 162 mg chewable tab(s) 162 mg ORAL DAILY - pantoprazole DR 40 mg tab(s) (PROTONIX) 40 mg ORAL DAILY (6 AM) - bisacodyl 10 mg suppository (DULCOLAX) 10 mg RECTAL DAILY PRN - polyethylene glycol 3350 17 g packet (MIRALAX, GLYCOLAX) 17 g ORAL DAILY - senna-docusate 8.6-50 mg 1 tablet (SENNA-S) 1 tablet ORAL BID - brimonidine 0.2 % 1 Drop (ALPHAGAN) 1 Drop LEFT EYE BID () - latanoprost 0.005 % 1 Drop (XALATAN) 1 Drop BOTH EYES BID () - ferrous sulfate 325 mg tab(s) 325 mg ORAL BID w MEALS - ascorbic acid (vitamin C) 500 mg tab(s) (VITAMIN C) 500 mg ORAL BID - metFORMIN ER 500 mg tab(s) (GLUCOPHAGE XR) 500 mg ORAL DAILY (5 PM) - glimepiride 0.5 mg tab(s) (AMARYL) 0.5 mg ORAL DAILY WITH BREAKFAST - dextrose 40 % 15 g 15 g ORAL PRN Or - glucagon 1 mg injection (GLUCAGEN) 1 mg INTRAMUSCULAR PRN Or - dextrose 50 % 12.5 g injection 12.5 g INTRAVENOUS PRN - insulin lispro pen (rapid acting) (HumaLOG KWIKPEN) SUBCUTANEOUS w MEALS - metoprolol tartrate (short acting) 25 mg tab(s) (LOPRESSOR) 25 mg ORAL q 12 H - amiodarone 400 mg tab(s) (PACERONE) 400 mg ORAL TID - NaCl 0.9% 2-10 mL 2-10 mL INTRAVENOUS q 12 H - melatonin 3 mg tab(s) 3 mg ORAL HS PRN Objective PHYSICAL EXAM: BP 150/74 Pulse 80 Temp (Src) 97.9 (Oral) Resp 16 Ht 6' 4 (1.93m) Wt 239 lb 10.2 oz (108.7kg) SpO2 94% BMI 29.18 kg/(m2). O2 Therapy: Room Air General Appearance: Well developed and well nourished appearance. No acute distress. ?Midsternal AND?SVG incision dry AND?intact, without redness, drainage or edema. Mouth/Pharynx: Teeth: Fair dentition. No lesions Neck: No JVD. Supple. Lungs: Normal respiratory effort. Clear lungs without rhonchi, rales, wheezing. Heart:?regular rhythm and?with some pvcs Peripheral Vascular/Arteries:?pu lses intact Abdomen:?soft, non-tender and bowel sounds present Neurologic/Psychiatri c: Oriented to person, place, time. Normal affect. No gross focal neurologic deficits. Extremities:?trace edema DATA: Diagnostic tests reviewed for today's visit: Most recent labs and imaging results. Assessment/Plan ? Diabetes mellitus type 2 ( new diagnosis) with postop hyperglycemia, HbA1c was 6.7 pre-op. Pt does not beleive he has DM since A1c is good! Was requiring iv insulin gtt post op. Pt off of pressors as of 04/05; taking po well; on prandial humalog 12 units qac tid (half dose if eats poorly). Transitioned to sq insulin Lantus 12 units qam and Humalog 12 units tid on 04/06. Added oral agents, Amaryl 0.5 mg daily am and Metformin ER 500 mg daily pm also on 04/06. Programmed insulin stopped, cont on SSI Humalog ac meals if BS >150, and oral agents. Diabetes edu and nitrition to see pt before discharge home ? NSTEMI (non-ST elevated myocardial infarction) ? CAD severe, s/p CABG 04/02/2019 SIGNATURE: Lise Luis MD PATIENT NAME: Rigo Diaz DATE: April 08, 2019 TIME: 8:17 AM PAGER: [phone] Normal [facility] ECG COMPLETEon 04-08-2019 ECG COMPLETE NAME : RIGO DIAZ PID : [id number] : 1950 Gender : Male Race : ORD : [id number] Procedure Date : Apr 08 2019 10:54:55 Edit Date : Apr 10 2019 17:39:31 Diagnosis:NORMAL SINUS RHYTHM NON-SPECIFIC INTRA-VENTRICULAR CONDUCTION DELAY BORDERLINE ECG WHEN COMPARED WITH ECG OF 03-APR-2019 05:23, PREMATURE VENTRICULAR COMPLEXES ARE NO LONGER PRESENT Confirmed by ANABELL LARA MD ([id number]) on 04/10/2019 5:39:30 PM Ventricular Rate : 76 BPM Atrial Rate : 76 BPM P-R Interval : 150 ms QRS Duration : 120 ms Q-T Interval : 458 ms QTC Calculation(Bazett) : 515 ms P Delta : 24 degrees R Delta : 3 degrees T Delta : 48 degrees Test Reason : Arrhythmia Location : 42 : [id number] Overread By : ANABELL LARA MD Edited By : ANABELL LARA MD Referred By : , Acquired by : JAKE KRUGER Normal [facility] NURSING PROGon 04-08-2019 NURSING PROG HNO ID: [id number] Author: Rosemarie (Rn) BIBI Milian Service: ? Author Type: Registered Nurse Type: Nursing Progress Note Filed: 04/08/2019 6:54 AM Note Text: Pt. Had a 7 beat run of V-tach followed by a 13 run of v-tach. On assessment, pt. Is diaphoretic. Vital signs stable per flowsheet.Pt. States he is diaphoretic because he gets sweaty with all of these blankets. Julio notified and he said continue to monitor and take magnesium level. Blankets removed, bed alarm on as pt. Is sitting at the edge of the bed. Will continue to monitor. [facility] NURSING PROG HNO ID: [id number] Author: Rosemarie (Rn) BIBI Milian Service: ? Author Type: Registered Nurse Type: Nursing Progress Note Filed: 04/07/2019 11:01 PM Note Text: Patient had 5 beats of V-tach x2 instances, doctor julio notified. Requests that cardiothoracic be notified if patient sustains and/or becomes symptomatic. Normal [facility] NUTRITIONon 04-08-2019 NUTRITION HNO ID: [id number] Author: Patricia Giles) LORI Browne Service: Nutrition Therapy Author Type: Registered Dietitian Type: Nutrition Filed: 04/08/2019 11:06 AM Note Text: NUTRITION THERAPY PROGRESS NOTE SERVICE DATE: 04/08/2019 SERVICE TIME: 10:55 RECOMMENDED DIAGNOSIS: NO MALNUTRITION IDENTIFIED per Registered Dietitian on 04/03/19 NUTRITION CARE PLAN Problem, Etiology and Signs/Symptoms: Increased nutrient needs kcal/protein related to increased physiological demand as evidenced by s/p CABG 04/02 Intervention: 1. Encouraged oral intake, heart healthy diet. Please document accurate % meals taken in nursing flowsheet, thank you Monitor and Evaluation: Goal: Meet >75% of estimated needs Monitor fluid/electrolyte balance Monitor labs, I/Os, vital signs, weight Discharge Nutrition Recommendations: Diet: Heart healthy, CHO controlled ------- Nutrition Follow-up: Interval History: Endocrine following for DM. EP following for vtach. Nutritional Intake: <75% estimated energy needs over the past 4 day(s). Nursing documenting 25-75% of meals since last RD note. Patient reports nothing tastes right, but I'm eating OK, I eat at least half of what they send me. States are you the one who gave me that Mediterranean diet? I'm not going to follow that. I'm going on [employer]. He states they tried to make me diabetic too, but they gave up on that one. Encouraged diet compliance with patient. Orders Placed This Encounter DIET HEART HEALTHY Standing Status: Standing Number of Occurrences: 1 Order Specific Question: Heart Healthy Answer: 2 GM SODIUM (<200 MG CHOL / LOW SAT FAT) Order Specific Question: Carbohydrate Control Answer: 3-5 CARBS/MEAL Lines and Drains: Peripheral 03/30/19 1750 Right Forearm 20 Gauge (Active) Peripheral 04/02/19 Right Hand 18 Gauge (Active) Height: 193 cm (6' 4) Admission Weight: 105.9 kg (233 lb 7.5 oz) Current Weight: 108.7 kg (239 lb 10.2 oz) Body mass index is 29.17 kg/m?. normal Recent Labs 04/08/19 0532 GLUC 100* BUN 18 CREAT 0.90 NA 137 K 3.9 CHLOR 107 CO2 25 HB 8.3* HCT 25.7* WBC 9.03 MG 2.0 MNT Billing Type: Re-assess/15 min 3 units SIGNATURE: Patricia Browne RD PATIENT NAME: Rigo Diaz DATE: April 08, 2019 TIME: 8:36 AM PAGER: [phone] Normal [facility] PROGRESSon 04-08-2019 PROGRESS HNO ID: [id number] Author: Virgie Pa) MIGUELITO Campbell Service: Cardiovascular Surgery Author Type: Nurse Practitioner Type: Progress Notes Filed: 04/11/2019 11:44 AM Note Text: CARDIOTHORACIC SURGERY POSTOP PROGRESS NOTE SERVICE DATE: 04/08/2019 SERVICE TIME: 10:10 AM Subjective S/P SURGERY: Procedure(s) (LRB): CABG x 3 (lsvg-lad; svg-om; svg-pda, evh); ?DATE OF SURGERY: 04/02/2019 POSTOP DAY #6 LOS: 14 HPI: Mr. Diaz is a 68 years of man with PMH significant for HTN, HLD, T2DM, left subclavian artery stenosis, GERD, and current tobacco smoker, CAD with acute KS s/p HAYDEN ?2 to RCA (October,, has been on Brilinta), who presented to [place] ED with c/o chest pain on 03/23/2019. He was found to have VT, required defibrillationx1 and amiodarone bolus with conversion. He was rule in for NSTEMI and underwent heart catheterization, which revealed multivessel CAD. Patient was then transferred to [facility] for revascularization evaluation. INTERVAL EVENTS / PERTINENT ROS: After 7 days of Brilinta holiday. Pre-op evaluation consisted of vascular surgery due to left subclavian stenosis; and pulmonary medicine due to poor FEV1 in the setting of current smoker of 49 years. Patient underwent bypass ?[address] Macias on 04/02. Intra-Op, patient had dissection of the HUIZAR requiring replacement with vein graft to LAD. Postop recovery in ICU was complicated by postop vasoplegia required fluid resuscitation; acute postop coagulopathy required multiple dose of protamine; postop PAF/NSVT found on POD#2, started on amiodarone drip and EP consult (no interventions recommended); acute blood loss anemia, require 1 unit PRBC on POD#3. He was transferred out of ICU on POD#5. Patient was examed and visited by myself while he eats his breakfast, who denies chest palpitation or LH/DZ despite multiple episodes of reported nonsustained VT and having diaphoresis. Patient repots that being sweaty is my usual. No SOB/MCBRIDE. Tolerating pain well and eating without N/V. Still working on BM. Tolerating postop pain. Objective Admission Weight: 105.9 kg (233 lb 7.5 oz) BP 115/51 Pulse 86 Temp 36.7 ?C (98 ?F) (Oral) Resp 16 Ht 193 cm (6' 4) Wt 108.7 kg (239 lb 10.2 oz) SpO2 96% BMI 29.17 kg/m? Body surface area is 2.41 meters squared. Min/Max/Average Temperature AND Blood Pressure: Temp (24hrs), Av.8 ?C (98.3 ?F), Min:36.6 ?C (97.9 ?F), Max:37 ?C (98.6 ?F) Systolic (24hrs), Av , Min:115 , Max:156 Diastolic (24hrs), Av, Min:51, Max:90 Intake/Output Summary (Last 24 hours) at 04/08/2019 1007 Last data filed at 04/08/2019 0120 Gross per 24 hour Intake 1080 ml Output 1440 ml Net -360 ml TELEMETRY: normal sinus rhythm with frequent PVCs PHYSICAL EXAM: General Appearance: well developed and no distress Skin: Midsternal incision dry AND intact. and SVG incisions dry AND intact. Lungs: diminished at bases, R>Land respiratory effort: normal Heart: regular rhythm, S1, S2 normal and pacing wires present Peripheral Vascular/Arteries: pulses intact, dorsalis pedis +2 and radial +2 Abdomen: soft, non-tender and bowel sounds present Genitourinary: voiding without difficulty Musculoskeletal: no deformities Neurologic/Psychiatri c: oriented to time, place and person and steady gait Extremities: edema: 1+, BLE Lines, Drains, and Airways Line Peripheral 03/30/19 1750 Right Forearm 20 Gauge 8 days Peripheral 04/02/19 Right Hand 18 Gauge 6 days DATA: Diagnostic tests reviewed for today's visit: Significant Lab Results: Review as BELOW Chest X-RAY 04/08/2019: IMPRESSION: 1. ?The patient has undergone interval sternotomy. 2. ?Interval development of bilateral pleural effusions right greater than left. 3. ?Increased density at the right lung base in part due to pleural effusion although some atelectasis or infiltrate may also be present. 4. ?Otherwise no interval change. Recent Labs 04/08/19 0532 04/07/19 0630 RBC 2.54* 2.40* WBC 9.03 9.22* HB 8.3* 8.0* HCT 25.7* 24.4* PLT 231 198 NA 137 140 K 3.9 3.6 CHLOR 107 107 CO2 25 26 BUN 18 17 CREAT 0.90 0.87 GLUC 100* 89 CA 8.0* 8.0* MG 2.0 -- ANION 9 11 Assessment/Plan NSTEMI s/p CABG x 3 (svg-lad; svg-om; svg-pda; evh) -POD#6 -s/p acute KS in 10/2017 with hayden x 2 to rca -continue ASA 162, atorvastatin 40, metoprolol 25 TID -Bowel regimen: Added prune juice and Dulcolax -ambulate?as tolerated -Pain control with orals and morphine -heart healthy diet -vest - pacing wire removal -Lasix 40 mg ?1 today with K ? Ventricular Tachycardia -short runs periodically, nonsustained -EP on consult: No intervention recommended -continue amiodarone PO -appreciate recs -Up BB to 25 mg TID -Added Mag and K supplement ? Coagulopathy -resolved ? Post-op vasoplegia -resolved ? Anticipated post-op respiratory insufficiency -currently resolved on RA -encourage IS, deep breathing and cough ? Acute blood loss anemia -HANDH?8.3, WITH STABLE HD -transfused 1 uPRBCs on 04/05 -Start iron, folate, ascorbic acid ? Leukocytosis -9?trending down -continue to monitor ? Left subclavian stenosis -take BP in right side ? DM2 -new finding -endo on consult ? HTN -c/w BB 25 BID for now ? HLD -Atorvastatin ? Tobacco Use disorder -encourage cessation ? DVT ppx -lovenox, scds, beka hose ? GI ppx -protonix ? Dispo Home when ready possible in 24hrs Cardiac Rehabilitation: -Phase I teaching reviewed (including indications, restrictions, home exercise regimen, BP/Pulse monitoring, symptom management) -Phase II to be ordered at 1 week appointment Tests/Labs Ordered: 1. BMP SIGNATURE: Virgie Campbell APRN.CNP PATIENT NAME: Rigo Diaz DATE: April 08, 2019 TIME: 10:07 AM PAGER/CONTACT #:[phone] [id number] I spent 55 minutes in the visit, with more than 50% of the total [id number] time of the visit in counseling / coordination of care. Normal [facility] CONSULT PROGon 04-07-2019 CONSULT PROG HNO ID: [id number] Author: Colette Armendariz Service: Endocrinology Author Type: Physician Type: Consult Progress Note Filed: 04/07/2019 7:38 AM Note Text: ENDOCRINOLOGY CONSULT PROGRESS NOTE SERVICE DATE: 04/06/2019 SERVICE TIME: 9:05 AM Subjective INTERVAL HPI: pt with diabetes mellitus type 2; off iv insulin gtt; off of pressors. On sc insulin and oral agents now. Pt eating well, no nausea, no pain, ambulating well. Slept well. On IV amiodarone. DIET HEART HEALTHY Recent Labs 04/07/19 0630 04/06/19 2050 04/06/19 1551 04/06/19 1136 04/05/19 0115 GLUC 89 -- -- -- -- 124* GLUCOSEMETER -- 82 114* 100* < > -- < > = values in this interval not displayed. Current Facility-Administered Medications Medication Dose Route Frequency - insulin regular iv infusion 100 units in NaCl 0.9% 100 mL - AK CARD SURG NOMOGRAM 0-12 Units/hr INTRAVENOUS CONTINUOUS - insulin regular human iv bolus 10 Units 10 Units INTRAVENOUS PRN - potassium chloride iv piggyback 20 mEq/100 mL 20 mEq INTRAVENOUS PRN - magnesium sulfate in water 2 g in sterile water 50 ml 2 g INTRAVENOUS PRN(NO DISPENSE) - acetaminophen 650 mg tab(s) (TYLENOL) 650 mg ORAL q 6 H PRN - enoxaparin 40 mg injection (LOVENOX) 40 mg SUBCUTANEOUS DAILY - albuterol 2.5 mg /3 mL (0.083 %) 2.5 mg (PROVENTIL) 2.5 mg INHALATION q 2 H PRN - atorvastatin 40 mg tab(s) (LIPITOR) 40 mg ORAL AT BEDTIME - ondansetron (PF) 4 mg injection (ZOFRAN) 4 mg INTRAVENOUS q 6 H PRN - oxyCODONE-acetaminoph en 5-325 mg 1-2 tablet (PERCOCET) 1-2 tablet ORAL q 4 H PRN - morphine 2-4 mg injection 2-4 mg INTRAVENOUS q 1 H PRN - ipratropium-albuterol 3 mL nebulizer solution (DUONEB) 3 mL INHALATION q 4 H - aspirin 162 mg chewable tab(s) 162 mg ORAL DAILY - pantoprazole DR 40 mg tab(s) (PROTONIX) 40 mg ORAL DAILY (6 AM) - bisacodyl 10 mg suppository (DULCOLAX) 10 mg RECTAL DAILY PRN - polyethylene glycol 3350 17 g packet (MIRALAX, GLYCOLAX) 17 g ORAL DAILY - senna-docusate 8.6-50 mg 1 tablet (SENNA-S) 1 tablet ORAL BID - brimonidine 0.2 % 1 Drop (ALPHAGAN) 1 Drop LEFT EYE BID () - latanoprost 0.005 % 1 Drop (XALATAN) 1 Drop BOTH EYES BID () - insulin lispro 12 Units pen (rapid acting) (HumaLOG KWIKPEN) 12 Units SUBCUTANEOUS w MEALS - ferrous sulfate 325 mg tab(s) 325 mg ORAL BID w MEALS - ascorbic acid (vitamin C) 500 mg tab(s) (VITAMIN C) 500 mg ORAL BID - amiodarone 360 mg in D5W 200 mL (NEXTERONE) 0.5 mg/min INTRAVENOUS CONTINUOUS - insulin glargine 12 Units pen (long acting) (LANTUS SOLOSTAR, BASAGLAR KWIKPEN) 12 Units SUBCUTANEOUS DAILY (8 AM) - metFORMIN ER 500 mg tab(s) (GLUCOPHAGE XR) 500 mg ORAL DAILY (5 PM) - glimepiride 0.5 mg tab(s) (AMARYL) 0.5 mg ORAL DAILY WITH BREAKFAST - dextrose 40 % 15 g 15 g ORAL PRN Or - glucagon 1 mg injection (GLUCAGEN) 1 mg INTRAMUSCULAR PRN Or - dextrose 50 % 12.5 g injection 12.5 g INTRAVENOUS PRN - insulin lispro pen (rapid acting) (HumaLOG KWIKPEN) SUBCUTANEOUS w MEALS - metoprolol tartrate (short acting) 25 mg tab(s) (LOPRESSOR) 25 mg ORAL q 12 H Objective PHYSICAL EXAM: BP 130/62 Pulse 73 Temp (Src) 98.2 (Temporal) Resp 20 Ht 6' 4 (1.93m) Wt 240 lb (108.9kg) SpO2 98% BMI 29.23 kg/(m2). O2 Therapy: Room Air General Appearance: Well developed and well nourished appearance. No acute distress. ?Midsternal AND?SVG incision dry AND?intact, without redness, drainage or edema. Mouth/Pharynx: Teeth: Fair dentition. No lesions Neck: No JVD. Supple. Lungs: Normal respiratory effort. Clear lungs without rhonchi, rales, wheezing. Heart:?regular rhythm and?with some pvcs Peripheral Vascular/Arteries:?pu lses intact Abdomen:?soft, non-tender and bowel sounds present Neurologic/Psychiatri c: Oriented to person, place, time. Normal affect. No gross focal neurologic deficits. Extremities:?trace edema DATA: Diagnostic tests reviewed for today's visit: Most recent labs and imaging results. Assessment/Plan ? Diabetes mellitus type 2 ( new diagnosis) with postop hyperglycemia, HbA1c was 6.7 pre-op. Pt does not beleive he has DM since A1c is good! Was requiring iv insulin gtt post op. Pt off of pressors as of 04/05; taking po well; on prandial humalog 12 units qac tid (half dose if eats poorly). Transitioned to sq insulin Lantus 12 units qam and Humalog 12 units tid on 04/06. Added oral agents, Amaryl 0.5 mg daily am and Metformin ER 500 mg daily pm also on 04/06. Will stop prog insulin today, watch on SSI Humalog ac meals if BS >150, and oral agents. Diabetes edu and nitrition to see pt before discharge home ? NSTEMI (non-ST elevated myocardial infarction) ? CAD severe, s/p CABG 04/02/2019 SIGNATURE: Colette Armendariz MD PATIENT NAME: Rigo Diaz DATE: April 07, 2019 TIME: 7:38 AM PAGER: [phone] Normal [facility] PROGRESSon 04-07-2019 PROGRESS HNO ID: [id number] Author: García Kim Service: Thoracic Surgery Author Type: Physician Type: Progress Notes Filed: 04/07/2019 10:06 AM Note Text: For Carlos S-feeling better and wants to go upstairs O-was told EP has him on IV amio which is not the case. Labs noted. A-Improving P-as ordered. OK for 4200 and switch to oral amio. [facility] PROGRESS HNO ID: [id number] Author: Jann Brown Service: Pulmonary Disease Author Type: Physician Type: Progress Notes Filed: 04/07/2019 3:08 AM Note Text: PULMONARY/CRITICAL CARE PROGRESS NOTE SERVICE DATE: April 07, 2019 SERVICE TIME: 3:06 AM Admission Date: 03/25/2019 AGE: [age] year old LOS: 13 days Patient is sleeping comfortably in bed. I did not wake the patient. EXAM: VITAL SIGNS: Temp (24hrs), Av.9 ?C (98.5 ?F), Min:36.8 ?C (98.2 ?F), Max:37.1 ?C (98.8 ?F) BP 129/61 Pulse 85 Temp (Src) 98.2 (Temporal) Resp 20 Ht 6' 4 (1.93m) Wt 240 lb (108.9kg) SpO2 96% BMI 29.23 kg/(m2). O2 Therapy: Room Air RRR Clear to auscultation without wheezing bilaterally anteriorly. Scattered bowel sounds, soft, nontender, nondistended. No peripheral edema. Dry, intact skin with fair turgor. 24 hour Intake AND Output: Intake/Output Summary (Last 24 hours) at 04/07/2019 0306 Last data filed at 04/06/2019 1800 Gross per 24 hour Intake 1348 ml Output 1430 ml Net -82 ml CURRENT LABS: Glucose (mg/dL) Date Value 04/05/2019 124 Potassium (mEq/L) Date Value 04/05/2019 3.8 Sodium (mEq/L) Date Value 04/05/2019 138 Chloride (mEq/L) Date Value 04/05/2019 104 CO2 (mEq/L) Date Value 04/05/2019 25 Creatinine (mg/dL) Date Value 04/05/2019 0.76 BUN (mg/dL) Date Value 04/05/2019 16 Anion Gap (no units) Date Value 04/05/2019 13 Calcium (mg/dL) Date Value 04/05/2019 8.2 CBC: HGB (g/dL) Date Value 04/05/2019 7.0 04/04/2019 7.2 04/03/2019 7.9 Hematocrit (%) Date Value 04/05/2019 20.8 04/04/2019 22.2 04/03/2019 23.9 WBC (thou/cmm) Date Value 04/05/2019 11.83 04/04/2019 12.76 04/03/2019 17.32 Recent Labs 04/05/19 0115 CO2 25 INPATIENT MEDICATIONS: Current Facility-Administered Medications Medication Dose Route Frequency - insulin regular iv infusion 100 units in NaCl 0.9% 100 mL - [place] CARD SURG NOMOGRAM 0-12 Units/hr INTRAVENOUS CONTINUOUS - insulin regular human iv bolus 10 Units 10 Units INTRAVENOUS PRN - potassium chloride iv piggyback 20 mEq/100 mL 20 mEq INTRAVENOUS PRN - magnesium sulfate in water 2 g in sterile water 50 ml 2 g INTRAVENOUS PRN(NO DISPENSE) - acetaminophen 650 mg tab(s) (TYLENOL) 650 mg ORAL q 6 H PRN - enoxaparin 40 mg injection (LOVENOX) 40 mg SUBCUTANEOUS DAILY - albuterol 2.5 mg /3 mL (0.083 %) 2.5 mg (PROVENTIL) 2.5 mg INHALATION q 2 H PRN - atorvastatin 40 mg tab(s) (LIPITOR) 40 mg ORAL AT BEDTIME - ondansetron (PF) 4 mg injection (ZOFRAN) 4 mg INTRAVENOUS q 6 H PRN - oxyCODONE-acetaminoph en 5-325 mg 1-2 tablet (PERCOCET) 1-2 tablet ORAL q 4 H PRN - morphine 2-4 mg injection 2-4 mg INTRAVENOUS q 1 H PRN - ipratropium-albuterol 3 mL nebulizer solution (DUONEB) 3 mL INHALATION q 4 H - aspirin 162 mg chewable tab(s) 162 mg ORAL DAILY - pantoprazole DR 40 mg tab(s) (PROTONIX) 40 mg ORAL DAILY (6 AM) - bisacodyl 10 mg suppository (DULCOLAX) 10 mg RECTAL DAILY PRN - polyethylene glycol 3350 17 g packet (MIRALAX, GLYCOLAX) 17 g ORAL DAILY - senna-docusate 8.6-50 mg 1 tablet (SENNA-S) 1 tablet ORAL BID - brimonidine 0.2 % 1 Drop (ALPHAGAN) 1 Drop LEFT EYE BID () - latanoprost 0.005 % 1 Drop (XALATAN) 1 Drop BOTH EYES BID () - insulin lispro 12 Units pen (rapid acting) (HumaLOG KWIKPEN) 12 Units SUBCUTANEOUS w MEALS - ferrous sulfate 325 mg tab(s) 325 mg ORAL BID w MEALS - ascorbic acid (vitamin C) 500 mg tab(s) (VITAMIN C) 500 mg ORAL BID - amiodarone 360 mg in D5W 200 mL (NEXTERONE) 0.5 mg/min INTRAVENOUS CONTINUOUS - insulin glargine 12 Units pen (long acting) (LANTUS SOLOSTAR, BASAGLAR KWIKPEN) 12 Units SUBCUTANEOUS DAILY (8 AM) - metFORMIN ER 500 mg tab(s) (GLUCOPHAGE XR) 500 mg ORAL DAILY (5 PM) - glimepiride 0.5 mg tab(s) (AMARYL) 0.5 mg ORAL DAILY WITH BREAKFAST - dextrose 40 % 15 g 15 g ORAL PRN Or - glucagon 1 mg injection (GLUCAGEN) 1 mg INTRAMUSCULAR PRN Or - dextrose 50 % 12.5 g injection 12.5 g INTRAVENOUS PRN - insulin lispro pen (rapid acting) (HumaLOG KWIKPEN) SUBCUTANEOUS w MEALS - metoprolol tartrate (short acting) 25 mg tab(s) (LOPRESSOR) 25 mg ORAL q 12 H Assessment/Plan ASSESSMENT: S/P CABG, POD # 5 Anticipated acute hypoxic post-operative respiratory insufficiency SVT Multiple chronic medical problems PLAN: Doing well on room air. Hemodynamically stable off pressors. Continue coronary artery disease treatment as per Cardiovascular/Thorac ic Surgery. Out of bed/activity as able. PRN pain control. Incentive spirometry every hour while awake. Continue SVT monitoring and treatment as per EP. Patient is steadily improving. SIGNATURE: Jann Brown MD [facility] DATE of SERVICE: April 07, 2019 TIME of SERVICE: 3:06 AM Normal [facility] CONSULT PROGon 04-06-2019 CONSULT PROG HNO ID: [id number] Author: Colette Armendariz Service: Endocrinology Author Type: Physician Type: Consult Progress Note Filed: 04/06/2019 9:22 AM Note Text: ENDOCRINOLOGY CONSULT PROGRESS NOTE SERVICE DATE: 04/06/2019 SERVICE TIME: 9:05 AM Subjective INTERVAL HPI: pt with diabetes mellitus type 2; on iv insulin gtt and prandial humalog; off of pressors. Pt eating well, no nausea, occ pain, ambulating well. DIET HEART HEALTHY Recent Labs 04/06/19 0826 04/06/19 0514 04/06/19 0404 04/05/19 0115 04/04/19 0250 GLUC -- -- -- -- 124* -- 158* GLUCOSEMETER 121* 118* 100* < > -- < > -- < > = values in this interval not displayed. Current Facility-Administered Medications Medication Dose Route Frequency - insulin regular iv infusion 100 units in NaCl 0.9% 100 mL - AK CARD SURG NOMOGRAM 0-12 Units/hr INTRAVENOUS CONTINUOUS - insulin regular human iv bolus 10 Units 10 Units INTRAVENOUS PRN - dextrose 50 % 12.5 g injection 12.5 g INTRAVENOUS PRN - potassium chloride iv piggyback 20 mEq/100 mL 20 mEq INTRAVENOUS PRN - magnesium sulfate in water 2 g in sterile water 50 ml 2 g INTRAVENOUS PRN(NO DISPENSE) - acetaminophen 650 mg tab(s) (TYLENOL) 650 mg ORAL q 6 H PRN - enoxaparin 40 mg injection (LOVENOX) 40 mg SUBCUTANEOUS DAILY - albuterol 2.5 mg /3 mL (0.083 %) 2.5 mg (PROVENTIL) 2.5 mg INHALATION q 2 H PRN - atorvastatin 40 mg tab(s) (LIPITOR) 40 mg ORAL AT BEDTIME - ondansetron (PF) 4 mg injection (ZOFRAN) 4 mg INTRAVENOUS q 6 H PRN - oxyCODONE-acetaminoph en 5-325 mg 1-2 tablet (PERCOCET) 1-2 tablet ORAL q 4 H PRN - morphine 2-4 mg injection 2-4 mg INTRAVENOUS q 1 H PRN - ipratropium-albuterol 3 mL nebulizer solution (DUONEB) 3 mL INHALATION q 4 H - aspirin 162 mg chewable tab(s) 162 mg ORAL DAILY - pantoprazole DR 40 mg tab(s) (PROTONIX) 40 mg ORAL DAILY (6 AM) - bisacodyl 10 mg suppository (DULCOLAX) 10 mg RECTAL DAILY PRN - polyethylene glycol 3350 17 g packet (MIRALAX, GLYCOLAX) 17 g ORAL DAILY - senna-docusate 8.6-50 mg 1 tablet (SENNA-S) 1 tablet ORAL BID - brimonidine 0.2 % 1 Drop (ALPHAGAN) 1 Drop LEFT EYE BID () - latanoprost 0.005 % 1 Drop (XALATAN) 1 Drop BOTH EYES BID () - insulin lispro 12 Units pen (rapid acting) (HumaLOG KWIKPEN) 12 Units SUBCUTANEOUS w MEALS - ferrous sulfate 325 mg tab(s) 325 mg ORAL BID w MEALS - ascorbic acid (vitamin C) 500 mg tab(s) (VITAMIN C) 500 mg ORAL BID - amiodarone 360 mg in D5W 200 mL (NEXTERONE) 0.5 mg/min INTRAVENOUS CONTINUOUS - metoprolol tartrate (short acting) 12.5 mg tab(s) (LOPRESSOR) 12.5 mg ORAL q 12 H Objective PHYSICAL EXAM: BP 124/56 Pulse 81 Temp (Src) 98.4 (Temporal) Resp 18 Ht 6' 4 (1.93m) Wt 248 lb 14.4 oz (112.9kg) SpO2 95% BMI 30.31 kg/(m2). O2 Therapy: Room Air General Appearance: Well developed and well nourished appearance. No acute distress. ?Midsternal AND?SVG incision dry AND?intact, without redness, drainage or edema. Mouth/Pharynx: Teeth: Fair dentition. No lesions Neck: No JVD. Supple. Lungs: Normal respiratory effort. Clear lungs without rhonchi, rales, wheezing. Heart:?regular rhythm and?with some pvcs Peripheral Vascular/Arteries:?pu lses intact Abdomen:?soft, non-tender and bowel sounds present Neurologic/Psychiatri c: Oriented to person, place, time. Normal affect. No gross focal neurologic deficits. Extremities:?no edema, has beka jones DATA: Diagnostic tests reviewed for today's visit: Most recent labs and imaging results. Assessment/Plan ? Diabetes mellitus type 2 ( new diagnosis) with postop hyperglycemia, HbA1c was 6.7 pre-op. Requiring iv insulin gtt post op, now on 1.5 units/hr; Pt off of pressors as of 04/05; taking po well; on prandial humalog 12 units qac tid (half dose if eats poorly). Will transition to sq insulin Lantus 12 units qam, cont Humalog 12 units tid; add Amaryl 0.5 mg daily am and Metformin ER 500 mg daily pm. Will try to wean off insulin. Diabetes edu and nitrition to see pt before discharge home ? NSTEMI (non-ST elevated myocardial infarction) ? CAD severe, s/p CABG 04/02/2019 SIGNATURE: Colette Armendariz MD PATIENT NAME: Rigo Diaz DATE: April 06, 2019 TIME: 9:22 AM PAGER: [phone] Normal [facility] PROGRESSon 04-06-2019 PROGRESS HNO ID: [id number] Author: García Kim Service: Thoracic Surgery Author Type: Physician Type: Progress Notes Filed: 04/06/2019 10:51 AM Note Text: For Carlos S-Feeling better and wants to go upstairs O-No labs or cxr ordered for today. A-improving P-transfer once EP clears/OK from rhythm standpoint. As ordered. Normal [facility] PROGRESS HNO ID: [id number] Author: Jann Brown Service: Pulmonary Disease Author Type: Physician Type: Progress Notes Filed: 04/06/2019 12:59 AM Note Text: PULMONARY/CRITICAL CARE PROGRESS NOTE SERVICE DATE: April 06, 2019 SERVICE TIME: 12:57 AM Admission Date: 03/25/2019 AGE: [age] year old LOS: 12 days Patient is resting comfortably in bed without any current complaints. EXAM: VITAL SIGNS: Temp (24hrs), Av.9 ?C (98.4 ?F), Min:36.5 ?C (97.7 ?F), Max:37.5 ?C (99.5 ?F) BP 95/57 Pulse 79 Temp (Src) 97.7 (Temporal) Resp 18 Ht 6' 4 (1.93m) Wt 248 lb 14.4 oz (112.9kg) SpO2 97% BMI 30.31 kg/(m2). O2 Therapy: Room Air RRR Clear to auscultation without wheezing bilaterally anteriorly. Scattered bowel sounds, soft, nontender, nondistended. No peripheral edema. Dry, intact skin with fair turgor. 24 hour Intake AND Output: Intake/Output Summary (Last 24 hours) at 04/06/2019 0057 Last data filed at 04/06/2019 0000 Gross per 24 hour Intake 2894.6 ml Output 3665 ml Net -770.4 ml CURRENT LABS: Glucose (mg/dL) Date Value 04/05/2019 124 Potassium (mEq/L) Date Value 04/05/2019 3.8 Sodium (mEq/L) Date Value 04/05/2019 138 Chloride (mEq/L) Date Value 04/05/2019 104 CO2 (mEq/L) Date Value 04/05/2019 25 Creatinine (mg/dL) Date Value 04/05/2019 0.76 BUN (mg/dL) Date Value 04/05/2019 16 Anion Gap (no units) Date Value 04/05/2019 13 Calcium (mg/dL) Date Value 04/05/2019 8.2 CBC: HGB (g/dL) Date Value 04/05/2019 7.0 04/04/2019 7.2 04/03/2019 7.9 Hematocrit (%) Date Value 04/05/2019 20.8 04/04/2019 22.2 04/03/2019 23.9 WBC (thou/cmm) Date Value 04/05/2019 11.83 04/04/2019 12.76 04/03/2019 17.32 Recent Labs 04/05/19 0115 04/03/19 2102 PH -- -- 7.383 PCO2 -- -- 32.1* PO2 -- -- 108.0 CO2 25 < > -- < > = values in this interval not displayed. INPATIENT MEDICATIONS: Current Facility-Administered Medications Medication Dose Route Frequency - insulin regular iv infusion 100 units in NaCl 0.9% 100 mL - [place] CARD SURG NOMOGRAM 0-12 Units/hr INTRAVENOUS CONTINUOUS - insulin regular human iv bolus 10 Units 10 Units INTRAVENOUS PRN - dextrose 50 % 12.5 g injection 12.5 g INTRAVENOUS PRN - potassium chloride iv piggyback 20 mEq/100 mL 20 mEq INTRAVENOUS PRN - magnesium sulfate in water 2 g in sterile water 50 ml 2 g INTRAVENOUS PRN(NO DISPENSE) - acetaminophen 650 mg tab(s) (TYLENOL) 650 mg ORAL q 6 H PRN - enoxaparin 40 mg injection (LOVENOX) 40 mg SUBCUTANEOUS DAILY - albuterol 2.5 mg /3 mL (0.083 %) 2.5 mg (PROVENTIL) 2.5 mg INHALATION q 2 H PRN - atorvastatin 40 mg tab(s) (LIPITOR) 40 mg ORAL AT BEDTIME - ondansetron (PF) 4 mg injection (ZOFRAN) 4 mg INTRAVENOUS q 6 H PRN - oxyCODONE-acetaminoph en 5-325 mg 1-2 tablet (PERCOCET) 1-2 tablet ORAL q 4 H PRN - morphine 2-4 mg injection 2-4 mg INTRAVENOUS q 1 H PRN - ipratropium-albuterol 3 mL nebulizer solution (DUONEB) 3 mL INHALATION q 4 H - aspirin 162 mg chewable tab(s) 162 mg ORAL DAILY - pantoprazole DR 40 mg tab(s) (PROTONIX) 40 mg ORAL DAILY (6 AM) - bisacodyl 10 mg suppository (DULCOLAX) 10 mg RECTAL DAILY PRN - polyethylene glycol 3350 17 g packet (MIRALAX, GLYCOLAX) 17 g ORAL DAILY - senna-docusate 8.6-50 mg 1 tablet (SENNA-S) 1 tablet ORAL BID - brimonidine 0.2 % 1 Drop (ALPHAGAN) 1 Drop LEFT EYE BID () - latanoprost 0.005 % 1 Drop (XALATAN) 1 Drop BOTH EYES BID () - insulin lispro 12 Units pen (rapid acting) (HumaLOG KWIKPEN) 12 Units SUBCUTANEOUS w MEALS - ferrous sulfate 325 mg tab(s) 325 mg ORAL BID w MEALS - ascorbic acid (vitamin C) 500 mg tab(s) (VITAMIN C) 500 mg ORAL BID - amiodarone 360 mg in D5W 200 mL (NEXTERONE) 0.5 mg/min INTRAVENOUS CONTINUOUS - metoprolol tartrate (short acting) 12.5 mg tab(s) (LOPRESSOR) 12.5 mg ORAL q 12 H Assessment/Plan ASSESSMENT: S/P CABG, POD # 4 Anticipated acute hypoxic post-operative respiratory insufficiency Multiple chronic medical problems PLAN: Doing well on room air. Hemodynamically stable off pressors. Continue chest tube management as per Cardiovascular/Thorac ic Surgery. Continue coronary artery disease treatment as per Cardiovascular/Thorac ic Surgery. Out of bed/activity as able. PRN pain control. Incentive spirometry every hour while awake. Patient is steadily improving. SIGNATURE: Jann Brown MD [facility] DATE of SERVICE: April 06, 2019 TIME of SERVICE: 12:57 AM Normal [facility] CONSULT PROGon 04-05-2019 CONSULT PROG HNO ID: [id number] Author: Lise Luis Service: Endocrinology Author Type: Physician Type: Consult Progress Note Filed: 04/05/2019 12:04 PM Note Text: ENDOCRINOLOGY CONSULT PROGRESS NOTE SERVICE DATE: 04/05/2019 SERVICE TIME: 8:20 AM Subjective INTERVAL HPI: pt with diabetes mellitus type 2; insulin requiring; on iv insulin gtt at 3 units per hour and on prandial insulin 12 units qac tid; off of pressors DIET HEART HEALTHY Recent Labs 04/05/19 1007 04/05/19 0809 04/05/19 0645 04/05/19 0115 04/04/19 0250 04/03/19 0415 GLUC -- -- -- -- 124* -- 158* -- 92 GLUCOSEMETER 157* 138* 152* < > -- < > -- < > -- < > = values in this interval not displayed. Current Facility-Administered Medications Medication Dose Route Frequency - insulin regular iv infusion 100 units in NaCl 0.9% 100 mL - AK CARD SURG NOMOGRAM 0-12 Units/hr INTRAVENOUS CONTINUOUS - insulin regular human iv bolus 10 Units 10 Units INTRAVENOUS PRN - dextrose 50 % 12.5 g injection 12.5 g INTRAVENOUS PRN - potassium chloride iv piggyback 20 mEq/100 mL 20 mEq INTRAVENOUS PRN - magnesium sulfate in water 2 g in sterile water 50 ml 2 g INTRAVENOUS PRN(NO DISPENSE) - acetaminophen 650 mg tab(s) (TYLENOL) 650 mg ORAL q 6 H PRN - enoxaparin 40 mg injection (LOVENOX) 40 mg SUBCUTANEOUS DAILY - albuterol 2.5 mg /3 mL (0.083 %) 2.5 mg (PROVENTIL) 2.5 mg INHALATION q 2 H PRN - atorvastatin 40 mg tab(s) (LIPITOR) 40 mg ORAL AT BEDTIME - ondansetron (PF) 4 mg injection (ZOFRAN) 4 mg INTRAVENOUS q 6 H PRN - oxyCODONE-acetaminoph en 5-325 mg 1-2 tablet (PERCOCET) 1-2 tablet ORAL q 4 H PRN - morphine 2-4 mg injection 2-4 mg INTRAVENOUS q 1 H PRN - ipratropium-albuterol 3 mL nebulizer solution (DUONEB) 3 mL INHALATION q 4 H - aspirin 162 mg chewable tab(s) 162 mg ORAL DAILY - pantoprazole DR 40 mg tab(s) (PROTONIX) 40 mg ORAL DAILY (6 AM) - bisacodyl 10 mg suppository (DULCOLAX) 10 mg RECTAL DAILY PRN - polyethylene glycol 3350 17 g packet (MIRALAX, GLYCOLAX) 17 g ORAL DAILY - senna-docusate 8.6-50 mg 1 tablet (SENNA-S) 1 tablet ORAL BID - brimonidine 0.2 % 1 Drop (ALPHAGAN) 1 Drop LEFT EYE BID () - latanoprost 0.005 % 1 Drop (XALATAN) 1 Drop BOTH EYES BID () - insulin lispro 12 Units pen (rapid acting) (HumaLOG KWIKPEN) 12 Units SUBCUTANEOUS w MEALS - ferrous sulfate 325 mg tab(s) 325 mg ORAL BID w MEALS - ascorbic acid (vitamin C) 500 mg tab(s) (VITAMIN C) 500 mg ORAL BID - amiodarone 360 mg in D5W 200 mL (NEXTERONE) 0.5 mg/min INTRAVENOUS CONTINUOUS - potassium chloride ER 40 mEq tab(s) (K-DUR, KLOR-CON) 40 mEq ORAL ONCE - furosemide 40 mg tab(s) (LASIX) 40 mg ORAL ONCE Objective PHYSICAL EXAM: BP 111/51 Pulse 93 Temp (Src) 99 (Temporal) Resp 18 Ht 6' 4 (1.93m) Wt 248 lb 14.4 oz (112.9kg) SpO2 95% BMI 30.31 kg/(m2). O2 Therapy: Room Air General Appearance: Well developed and well nourished appearance. No acute distress. ?Midsternal AND?SVG incision dry AND?intact, without redness, drainage or edema. Head/Eyes: Sclera clear, normal conjunctiva. EOMI Mouth/Pharynx: Teeth: Fair dentition. No lesions Neck: No JVD. Supple. Lungs: Normal respiratory effort. Clear lungs without rhonchi, rales, wheezing. Heart:?regular rhythm and?with some pvcs Peripheral Vascular/Arteries:?pu lses intact Abdomen:?soft, non-tender and bowel sounds present Neurologic/Psychiatri c: Oriented to person, place, time. Normal affect. No gross focal neurologic deficits. Extremities:?no edema DATA: Diagnostic tests reviewed for today's visit: Most recent labs and imaging results. Assessment/Plan ? Diabetes mellitus type 2 ( new diagnosis) with postop hyperglycemia, requiring iv insulin gtt post op; HbA1c 6.7; requiring iv insulin gtt for glycemic control postop; off of pressors as of this morning now at 3-4 units/hour ; taking po; on prandial humalog 12 units qac tid, continue iv insulin gtt per schedule B on Cabg protocol today as he is still requiring significant amount of insulin; check BS q 2hours while on insulin gtt; will transition to sq insulin ; will make further recommendation regarding home going regimen; diabetes edu and nitrition to see pt before discharge home ? NSTEMI (non-ST elevated myocardial infarction) ? CAD severe, s/p CABG 04/02/2019 SIGNATURE: Lise Luis MD PATIENT NAME: Rigo Diaz DATE: April 05, 2019 TIME: 12:01 PM PAGER: [phone] Normal [facility] PROGRESSon 04-05-2019 PROGRESS HNO ID: [id number] Author: Jeramie Jama Service: Critical Care Author Type: Physician Type: Progress Notes Filed: 04/05/2019 11:47 AM Note Text: MICU - PROGRESS NOTE SERVICE DATE: April 05, 2019 Admission Date: 03/25/2019 AGE: [age] year old LOS: 11 days Subjective No complaints. Had VT/SVT. Objective PROBLEMS: ACTIVE PROBLEM LIST Unspecified Disorder of Skin and Subcutaneous Tissue Type II Or Unspecified Type Diabetes Mellitus Without Mention of Complication, Not Stated As Uncontrolled Unspecified Essential Hypertension Other and Unspecified Hyperlipidemia Cardiac Dysrhythmia, Unspecified Tobacco Use Disorder Psychosexual Dysfunction With Inhibited Sexual Excitement Obesity, Unspecified Coronary Atherosclerosis of Unspecified Type of Vessel, [place] Or [place] Unspecified Hearing Loss Lumbago Peripheral Vascular Disease, Unspecified (Hcc) Congenital Pes Planus Djd (Degenerative Joint Disease) 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, Severe Stage 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 - PAST SURGICAL HISTORY OF 2002 herniorrhaphy left inguinal - PAST SURGICAL HISTORY OF 1963 elbow surgery bone chips - REMOVE CATARACT, INSERT LENS,EX 2010 OD - REMOVE CATARACT, INSERT LENS,EX OS 07/23/12 OS - TRABECULECTOMY WITH SCARRING 2010 OD Social History Socioeconomic History Marital status: Spouse name: Not on file Number of children: Not on file Years of education: Not on file Highest education level: Not on file Occupational History Not on file Social Needs Financial resource strain: Not on file Food insecurity: Worry: Not on file Inability: Not on file Transportation needs: Medical: Not on file Non-medical: Not on file Tobacco Use Smoking status: Current Every Day Smoker Packs/day: 1.00 Years: 50.00 Pack years: 50 Types: Cigarettes Smokeless tobacco: Never Used Substance and Sexual Activity Alcohol use: No Drug use: No Sexual activity: Not on file Lifestyle Physical activity: Days per week: Not on file Minutes per session: Not on file Stress: Not on file Relationships Social connections: Talks on phone: Not on file Gets together: Not on file Attends bahai service: Not on file Active member of club or organization: Not on file Attends meetings of clubs or organizations: Not on file Relationship status: Not on file Intimate partner violence: Fear of current or ex partner: Not on file Emotionally abused: Not on file Physically abused: Not on file Forced sexual activity: Not on file Other Topics Concerns: Not on file Social History Narrative Not on file VITAL SIGNS (last 24hrs min/max): Temp Av.8 ?C (98.3 ?F) Min: 35.8 ?C (96.4 ?F) Max: 37.1 ?C (98.8 ?F) Pulse Av.2 Min: 62 Max: 87 Arterial BP 1 Min: 80/41 Max: 133/65 Cuff BP Min: 86/50 Max: 115/54 Pain Level: 2 Vital signs reviewed. BP 111/51 Pulse 93 Temp (Src) 99 (Temporal) Resp 18 Ht 6' 4 (1.93m) Wt 248 lb 14.4 oz (112.9kg) SpO2 95% BMI 30.31 kg/(m2). O2 Therapy: Room Air Temp (24hrs), Av.7 ?C (98.1 ?F), Min:36.6 ?C (97.9 ?F), Max:37.2 ?C (99 ?F) NET FLUID BALANCE Intake/Output Summary (Last 24 hours) at 04/05/2019 1142 Last data filed at 04/05/2019 0700 Gross per 24 hour Intake 3560.6 ml Output 1490 ml Net 2070.6 ml MEDICATIONS Current Facility-Administered Medications Medication Dose Route Frequency - amiodarone 360 mg in D5W 200 mL (NEXTERONE) 0.5 mg/min INTRAVENOUS CONTINUOUS - potassium chloride ER 40 mEq tab(s) (K-DUR, KLOR-CON) 40 mEq ORAL ONCE - furosemide 40 mg tab(s) (LASIX) 40 mg ORAL ONCE - brimonidine 0.2 % 1 Drop (ALPHAGAN) 1 Drop LEFT EYE BID () - latanoprost 0.005 % 1 Drop (XALATAN) 1 Drop BOTH EYES BID () - insulin lispro 12 Units pen (rapid acting) (HumaLOG KWIKPEN) 12 Units SUBCUTANEOUS w MEALS - ferrous sulfate 325 mg tab(s) 325 mg ORAL BID w MEALS - ascorbic acid (vitamin C) 500 mg tab(s) (VITAMIN C) 500 mg ORAL BID - ipratropium-albuterol 3 mL nebulizer solution (DUONEB) 3 mL INHALATION q 4 H - aspirin 162 mg chewable tab(s) 162 mg ORAL DAILY - pantoprazole DR 40 mg tab(s) (PROTONIX) 40 mg ORAL DAILY (6 AM) - bisacodyl 10 mg suppository (DULCOLAX) 10 mg RECTAL DAILY PRN - polyethylene glycol 3350 17 g packet (MIRALAX, GLYCOLAX) 17 g ORAL DAILY - senna-docusate 8.6-50 mg 1 tablet (SENNA-S) 1 tablet ORAL BID - insulin regular iv infusion 100 units in NaCl 0.9% 100 mL - AK CARD SURG NOMOGRAM 0-12 Units/hr INTRAVENOUS CONTINUOUS - insulin regular human iv bolus 10 Units 10 Units INTRAVENOUS PRN - dextrose 50 % 12.5 g injection 12.5 g INTRAVENOUS PRN - potassium chloride iv piggyback 20 mEq/100 mL 20 mEq INTRAVENOUS PRN - magnesium sulfate in water 2 g in sterile water 50 ml 2 g INTRAVENOUS PRN(NO DISPENSE) - acetaminophen 650 mg tab(s) (TYLENOL) 650 mg ORAL q 6 H PRN - enoxaparin 40 mg injection (LOVENOX) 40 mg SUBCUTANEOUS DAILY - albuterol 2.5 mg /3 mL (0.083 %) 2.5 mg (PROVENTIL) 2.5 mg INHALATION q 2 H PRN - atorvastatin 40 mg tab(s) (LIPITOR) 40 mg ORAL AT BEDTIME - ondansetron (PF) 4 mg injection (ZOFRAN) 4 mg INTRAVENOUS q 6 H PRN - oxyCODONE-acetaminoph en 5-325 mg 1-2 tablet (PERCOCET) 1-2 tablet ORAL q 4 H PRN - morphine 2-4 mg injection 2-4 mg INTRAVENOUS q 1 H PRN Lines, Drains, and Airways Line Peripheral 03/30/19 1750 Right Forearm 20 Gauge 5 days Peripheral 04/02/19 Right Hand 18 Gauge 3 days Central Line Quadruple Lumen 04/02/19 1400 Right Neck 2 days Drain Chest Tube 04/02/19 Mediastinal 32 Fr 3 days Chest Tube 04/02/19 Pleural 28 Fr 3 days PHYSICAL EXAM PERFORMED: General: No acute distress Cardiovascular: Regular rhythm Respiratory: Reduced breath sounds bilaterally; median sternotomy Abdomen: Soft Extremities: Edema- Yes Neurologic: Awake, oriented Respiratory/Nursing Documentation: O2 Therapy: Room Air (04/05/19 0800) Invasive Ventilator Mode: Continuous Positive Airway Pressure;Pressure Support Ventilation (04/02/192235) Set Ventilator Respiratory Rate (BPM): 12 (04/02/191999) Total Respiratory Rate (BPM): 17 (04/02/192235) Tidal Volume Set (mL): 500 (04/02/191999) Exhaled Tidal Volume (mL): 568 (04/02/192235) Minute Volume (L): 10.6 (04/02/192235) Peak Inspiratory Pressure (cm H2O): 11 (04/02/192235) PEEP/CPAP (cm H2O): 5 (04/02/192235) HEMODYNAMIC DATA: Reviewed NUTRITION: Enteral Feeds: Yes DATA: Diagnostic tests reviewed for today's visit, films/specimens were personally reviewed by me: Most recent labs and imaging results. LABS: Recent Labs 04/05/19 0115 04/04/19 1215 04/04/19 0930 04/02/192017 TROPI -- 0.715* -- -- -- WBC 11.83* -- -- < > 19.92* RBC 2.03* -- -- < > 4.06* HB 7.0* -- -- < > 13.7 HCT 20.8* -- -- < > 41.0 MCV 102.5* -- -- < > 101.0* PLT 142 -- -- < > 218 GLUC 124* -- -- < > 90 BUN 16 -- -- < > 17 CREAT 0.76 -- -- < > 1.29* NA 138 -- -- < > 141 K 3.8 -- -- < > 3.8 CHLOR 104 -- -- < > 112* CO2 25 -- -- < > 21 CA 8.2* -- -- < > 8.2* PTSEC -- -- -- -- 12.3 APTT -- -- 27.6 < > 119.5* INR -- -- -- -- 1.14 MG 1.9 -- -- < > 2.7* < > = values in this interval not displayed. ABG: Recent Labs 04/03/19210104/03/19 1015 04/02/192014 PH 7.383 7.324* 7.255* PO2 108.0 74.7* 143.0* PCO2 32.1* 35.3 49.7* Assessment/Plan IMPRESSION: Critical Care Documentation: The patient has the following organ/system impairment(s): Anticipated post-operative respiratory insufficiency and hypotension sp CABG 04/02 Smoker COPD Right lung nodules-indeterminate Left sc artery stenosis CAD sp PCI VT/ SVT DM LUE phlebitis secondary to infusion Acute blood loss anemia MMP CRITICAL CARE PLAN: Consider transfusion Diurese Amiodarone See orders Discussed with staff/patient/family SIGNATURE: Jeramie Jama MD PATIENT NAME: Rigo Diaz DATE: April 05, 2019 TIME: 11:42 AM Normal [facility] PROGRESS HNO ID: [id number] Author: Shawna Marvin (Pa) Service: Cardiac Surgery Author Type: Physician Mri Special Procedures Technologist Type: Progress Notes Filed: 04/05/2019 12:21 PM Note Text: CARDIOTHORACIC SURGERY POSTOP PROGRESS NOTE SERVICE DATE: 04/05/2019 SERVICE TIME: 10:15 AM Subjective S/P SURGERY: Procedure(s) (LRB): BYPASS GRAFT ARTERY CORONARY ON-PUMP THREE CORONARY VENOUS GRAFTS (N/A) DATE OF SURGERY: 04/02/2019 POSTOP DAY #3 LOS: 11 INTERVAL EVENTS / PERTINENT ROS: Patient comfortable in chair. Continues to have episodes of vtach despite amiodarone drip. Otherwise, no events over night. Objective Admission Weight: 105.9 kg (233 lb 7.5 oz) BP 111/51 Pulse 93 Temp 37.2 ?C (99 ?F) Resp 18 Ht 193 cm (6' 4) Wt 112.9 kg (248 lb 14.4 oz) SpO2 95% BMI 30.30 kg/m? Body surface area is 2.46 meters squared. Min/Max/Average Temperature AND Blood Pressure: Temp (24hrs), Av.7 ?C (98.1 ?F), Min:36.4 ?C (97.5 ?F), Max:37.2 ?C (99 ?F) Systolic (24hrs), Av , Min:96 , Max:145 Diastolic (24hrs), Av, Min:44, Max:82 Intake/Output Summary (Last 24 hours) at 04/05/2019 1009 Last data filed at 04/05/2019 0700 Gross per 24 hour Intake 3560.6 ml Output 1830 ml Net 1730.6 ml TELEMETRY: normal sinus rhythm PHYSICAL EXAM: General Appearance: Well developed and well nourished appearance. No acute distress. Midsternal AND SVG incision dry AND intact, without redness, drainage or edema. Head/Eyes: Sclera clear, normal conjunctiva. EOMI Lungs: clear and respiratory effort: normal Heart: regular rhythm, pacing wires present and epsiodes of svt Peripheral Vascular/Arteries: pulses intact Abdomen: soft, non-tender and bowel sounds present Neurologic/Psychiatri c: Oriented to person, place, time. Normal affect. No gross focal neurologic deficits. Extremities: edema: 1+, non-pitting Lines, Drains, and Airways Line Peripheral 03/30/19 1750 Right Forearm 20 Gauge 5 days Peripheral 04/02/19 Right Hand 18 Gauge 3 days Central Line Quadruple Lumen 04/02/19 1400 Right Neck 2 days Drain Chest Tube 04/02/19 Mediastinal 32 Fr 3 days Chest Tube 04/02/19 Pleural 28 Fr 3 days DATA: Diagnostic tests reviewed for today's visit: Chest X-RAY: b/l atelactasis; small right pleural effusion Recent Labs 04/05/19 0115 04/04/19 0930 04/04/19 0250 04/03/19 2107 04/03/19 1015 04/03/19 0415 04/02/19 2131 04/02/192017 RBC 2.03* -- 2.13* -- -- 2.96* -- -- 4.06* WBC 11.83* -- 12.76* -- -- 17.32* -- -- 19.92* HB 7.0* -- 7.2* 7.9* -- 10.2* < > -- 13.7 HCT 20.8* -- 22.2* 23.9* -- 30.7* < > -- 41.0 PLT 142 -- 151 -- -- 202 -- -- 218 INR -- -- -- -- -- -- -- -- 1.14 APTT -- 27.6 -- -- -- -- -- 29.7 119.5* NA 138 -- 139 -- -- 145 -- -- 141 K 3.8 -- 3.8 -- -- 4.5 -- -- 3.8 CHLOR 104 -- 107 -- -- 120* -- -- 112* CO2 25 -- 22 -- -- 19* -- -- 21 BUN 16 -- 17 -- -- 17 -- -- 17 CREAT 0.76 -- 0.94 -- -- 1.09 -- -- 1.29* GLUC 124* -- 158* -- -- 92 -- -- 90 ICAL -- -- -- -- 4.51* -- -- -- -- CA 8.2* -- 7.9* -- -- 6.9* -- -- 8.2* MG 1.9 -- 1.9 -- -- 1.9 -- -- 2.7* ANION 13 -- 14 -- -- 11 -- -- 12 < > = values in this interval not displayed. Recent Labs 04/03/19210104/03/19 1015 04/02/19201404/02/19 1833 04/02/19 1819 04/02/19 1753 PH 7.383 7.324* 7.255* 7.343* 7.365 7.384 PCO2 32.1* 35.3 49.7* -- -- -- PO2 108.0 74.7* 143.0* 209.0* 410.0* 341.0* BE -5.2* -7.0* -5.7* -- -- -- HCO3 -- -- -- 23.7 24.6 24.5 Assessment/Plan NSTEMI s/p CABG x 3 (svg-lad; svg-om; svg-pda; evh) -POD#3 -s/p acute KS in 10/2017 with hayden x 2 to rca -continue ASA 162, atorvastatin 40, hold metoprolol until off pressors; possibly start later today -discontinue chest tubes -Bowel regimen -ambulate as tolerated -Pain control with orals and morphine -heart healthy diet ? Ventricular Tachycardia -currently having episodes of SVT -EP on consult -continue amiodarone drip -appreciate recs ? Coagulopathy -resolved ? Post-op vasoplegia -resolved ? Anticipated post-op respiratory insufficiency -currently resolved on RA -encourage IS, deep breathing and cough ? Acute blood loss anemia -HANDH 7.01/20.8 in early am -transfused 1 uPRBCs on 04/05;repeat HANDH pending -Start iron, folate, ascorbic acid ? Leukocytosis -11.83; trending down -continue to monitor ? Left subclavian stenosis -take BP in right side ? DM2 -new finding -endo on consult today ? HTN -hold meds until off pressors ? HLD -Atorvastatin ? Tobacco Use disorder -encourage cessation ? DVT ppx -lovenox, scds, beka hose ? GI ppx -protonix ? Dispo -remain in CVICU ? Planned in collaboration with Dr. Kim and CVICU team Tests/Labs Ordered: 1. Chest X-ray 2. BMP 3. CBC SIGNATURE: Shawna Marvin PA-C PATIENT NAME: Rigo Diaz DATE: April 05, 2019 TIME: 10:09 AM PAGER/CONTACT #:[phone] Normal [facility] PROGRESS HNO ID: [id number] Author: García Kim Service: Cardiac Surgery Author Type: Physician Type: Progress Notes Filed: 04/05/2019 11:42 AM Note Text: CARDIOTHORACIC SURGERY POSTOP PROGRESS NOTE SERVICE DATE: 04/04/2019 SERVICE TIME: 9:46 AM Subjective S/P SURGERY: Procedure(s) (LRB): BYPASS GRAFT ARTERY CORONARY ON-PUMP THREE CORONARY VENOUS GRAFTS (N/A) DATE OF SURGERY: 04/02/2019 POSTOP DAY #2 LOS: 11 INTERVAL EVENTS / PERTINENT ROS: Patient in chair. Comfortable. Able to walk despite being on 3 pressors. Developed multiple runs of SVT/NSVT overnight Objective Admission Weight: 105.9 kg (233 lb 7.5 oz) BP 111/51 Pulse 93 Temp 37.2 ?C (99 ?F) Resp 18 Ht 193 cm (6' 4) Wt 112.9 kg (248 lb 14.4 oz) SpO2 95% BMI 30.30 kg/m? Body surface area is 2.46 meters squared. Min/Max/Average Temperature AND Blood Pressure: Temp (24hrs), Av.8 ?C (98.2 ?F), Min:36.4 ?C (97.5 ?F), Max:37.4 ?C (99.3 ?F) Systolic (24hrs), Av , Min:96 , Max:145 Diastolic (24hrs), Av, Min:44, Max:82 Intake/Output Summary (Last 24 hours) at 04/05/2019 0946 Last data filed at 04/05/2019 0700 Gross per 24 hour Intake 3560.6 ml Output 1830 ml Net 1730.6 ml TELEMETRY: normal sinus rhythm PHYSICAL EXAM: General Appearance: Well developed and well nourished appearance. No acute distress. Midsternal AND SVG incision dry AND intact, without redness, drainage or edema. Head/Eyes: Sclera clear, normal conjunctiva. EOMI Lungs: clear and respiratory effort: normal Heart: regular rhythm and S1, S2 normal Peripheral Vascular/Arteries: pulses intact Abdomen: soft, non-tender and bowel sounds present Neurologic/Psychiatri c: Oriented to person, place, time. Normal affect. No gross focal neurologic deficits. Extremities: edema: non-pitting Lines, Drains, and Airways Line Peripheral 03/30/19 1750 Right Forearm 20 Gauge 5 days Peripheral 04/02/19 Right Hand 18 Gauge 3 days Central Line Quadruple Lumen 04/02/19 1400 Right Neck 2 days Drain Chest Tube 04/02/19 Mediastinal 32 Fr 3 days Chest Tube 04/02/19 Pleural 28 Fr 3 days DATA: Diagnostic tests reviewed for today's visit: Chest X-RAY: Stable appearance of the heart and lungs. Recent Labs 04/05/19 0115 04/04/19 0930 04/04/19 0250 04/03/19 2107 04/03/19 1015 04/03/19 0415 04/02/19 2131 04/02/192017 RBC 2.03* -- 2.13* -- -- 2.96* -- -- 4.06* WBC 11.83* -- 12.76* -- -- 17.32* -- -- 19.92* HB 7.0* -- 7.2* 7.9* -- 10.2* < > -- 13.7 HCT 20.8* -- 22.2* 23.9* -- 30.7* < > -- 41.0 PLT 142 -- 151 -- -- 202 -- -- 218 INR -- -- -- -- -- -- -- -- 1.14 APTT -- 27.6 -- -- -- -- -- 29.7 119.5* NA 138 -- 139 -- -- 145 -- -- 141 K 3.8 -- 3.8 -- -- 4.5 -- -- 3.8 CHLOR 104 -- 107 -- -- 120* -- -- 112* CO2 25 -- 22 -- -- 19* -- -- 21 BUN 16 -- 17 -- -- 17 -- -- 17 CREAT 0.76 -- 0.94 -- -- 1.09 -- -- 1.29* GLUC 124* -- 158* -- -- 92 -- -- 90 ICAL -- -- -- -- 4.51* -- -- -- -- CA 8.2* -- 7.9* -- -- 6.9* -- -- 8.2* MG 1.9 -- 1.9 -- -- 1.9 -- -- 2.7* ANION 13 -- 14 -- -- 11 -- -- 12 < > = values in this interval not displayed. Recent Labs 04/03/19210104/03/19 1015 04/02/19201404/02/19 1833 04/02/19 1819 04/02/19 1753 PH 7.383 7.324* 7.255* 7.343* 7.365 7.384 PCO2 32.1* 35.3 49.7* -- -- -- PO2 108.0 74.7* 143.0* 209.0* 410.0* 341.0* BE -5.2* -7.0* -5.7* -- -- -- HCO3 -- -- -- 23.7 24.6 24.5 Assessment/Plan NSTEMI s/p CABG x 3 (svg-lad; svg-om; svg-pda; evh) -POD#2 -s/p acute KS in 10/2017 with hayden x 2 to rca -continue ASA 162, atorvastatin 40, hold metoprolol until off pressors -discontinue robins, arterial line -maintain chest tubes -Bowel regimen -ambulate as tolerated -Pain control with orals and morphine -advance diet as tolerated Ventricular Tachycardia -currently having episodes of SVT -EP on consult -continue amiodarone drip -appreciate recs ? Coagulopathy -resolved ? Post-op vasoplegia -resolved ? Anticipated post-op respiratory insufficiency -currently requiring 2 L NC; continue to wean -encourage IS, deep breathing and cough ? Acute blood loss anemia -HANDH 7./.2 -transfused 1 uPRBCs on 04/05 -Start iron, folate, ascorbic acid ? Leukocytosis -12.76; trending down -continue to monitor ? Left subclavian stenosis -take BP in right side ? DM2 -new finding -endo on consult today ? HTN -hold meds until off pressors ? HLD -Atorvastatin ? Tobacco Use disorder -encourage cessation ? DVT ppx -lovenox, scds, beka hose ? GI ppx -protonix Dispo -remain in CVICU Planned in collaboration with Dr. Macias and CVICU team Tests/Labs Ordered: 1. Chest X-ray 2. BMP 3. CBC SIGNATURE: Shawna Marvin PA-C PATIENT NAME: Rigo Diaz DATE: April 04, 2019 TIME: 9:46 AM PAGER/CONTACT #:[phone] [id number] For Carlos Patient seen this AM with LEONARD's and bedside nurse. Data, cxr, and careplan reviewed. P-as ordered. Normal [facility] CASE MANAGEMon 04-04-2019 CASE MANAGEM HNO ID: [id number] Author: Norah (Rn) BIBI Ortega Service: ? Author Type: Registered Nurse Type: Care Mgt Progress Note Filed: 04/04/2019 12:15 PM Note Text: CARE MANAGEMENT PROGRESS NOTE SERVICE DATE: 04/04/2019 SERVICE TIME: 12:15 PM LOS: 10 days Needs Prior to Discharge: Discharge Prescriptions;Home Care Order Disch Plan: Home with assit and [facility]. SIGNATURE: Norah Ortega RN PATIENT NAME: Rigo Diaz DATE: April 04, 2019 TIME: 12:15 PM PAGER/CONTACT #: [phone] Normal [facility] CONSULTon 04-04-2019 CONSULT HNO ID: [id number] Author: José Kennedy Service: Electrophysiology Author Type: Physician Type: Consults Filed: 04/04/2019 5:38 PM Note Text: CONSULT NOTE SERVICE DATE: 04/04/2019 SERVICE TIME: 5:29 PM PHYSICIAN CONSULT (AK,AV,EU,FV,HL,PARISA,MM ,SP) Consult performed by: José Kennedy Consult ordered by: Shawna Marvin (Pa) Reason for consult: Ventricular tachycardia. PRIMARY CARE PHYSICIAN: Carol Mckee MD Subjective HPI 68-year-old male with history of essential hypertension, coronary disease, prior PCIs, presented with sustained VT to [place] [facility], required urgent cardioversion. Echocardiogram demonstrated preserved LV systolic function, and coronary angiography showed multivessel coronary disease. The patient was transferred to [facility] and underwent coronary grafting and day ago. Postprocedure echocardiogram demonstrated preserved LV systolic function. Clinically his improving, but still requires inotropic support. Telemetry demonstrates sinus rhythm with brief episodes of either atrial tachycardia with aberrant conduction or NSVT. ECG on presentation demonstrated ventricular tachycardia with LBBB, inferior axis morphology at 200 beats a minute, overall appearance compatible with outflow tract VT. ECG demonstrated atrially paced rhythm with nikolski conduction, QRS 110 ms. 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 - PAST SURGICAL HISTORY OF 2002 herniorrhaphy left inguinal - PAST SURGICAL HISTORY OF 1963 elbow surgery bone chips - REMOVE CATARACT, INSERT LENS,EX 2010 OD - REMOVE CATARACT, INSERT LENS,EX OS 07/23/12 OS - TRABECULECTOMY WITH SCARRING 2010 OD FAMILY HISTORY Problem Relation Age of Onset - Emphysema Father - No Ocular Disease Father - Coronary Artery Disease Mother - No Ocular Disease Mother - Macular Degen Other Social History Tobacco Use - Smoking status: Current Every Day Smoker Packs/day: 1.00 Years: 50.00 Pack years: 50.00 Types: Cigarettes - Smokeless tobacco: Never Used Substance Use Topics - Alcohol use: No - Drug use: No Medications Prior to Admission: lisinopril-hydrochlor othiazide (PRINZIDE,ZESTORETIC) 20-12.5 mg per tablet Take 1 tablet by mouth once daily. Disp: Rfl: atorvastatin (LIPITOR) 40 mg tablet Take 40 mg by mouth once daily. Disp: Rfl: ticagrelor (BRILINTA) 90 mg tablet Take 90 mg by mouth twice daily. Disp: Rfl: ALPHAGAN P 0.1 % drop USE 1 DROP IN THE LEFT EYE TWICE A DAY Disp: 15 mL Rfl: 0 latanoprost (XALATAN) 0.005 % ophthalmic solution USE 1 DROP IN THE LEFT EYE DAILY AT BEDTIME, DISCARD AFTER 42 DAYS Disp: 2.5 mL Rfl: 0 METOPROLOL 50 MG TAB Take one(1) tablet two(2) times daily. Disp: 60 Rfl: 5 multivitamins w-minerals/lut(CENTRU M SILVER TAB) Take one(1) tablet daily. Disp: Rfl: 0 aspirin(ECOTRIN LOW STRENGTH 81 MG TAB) Take one(1) tablet daily. Disp: Rfl: 0 Current Facility-Administered Medications Medication Dose Route Frequency - insulin regular iv infusion 100 units in NaCl 0.9% 100 mL - AK CARD SURG NOMOGRAM 0-12 Units/hr INTRAVENOUS CONTINUOUS - insulin regular human iv bolus 10 Units 10 Units INTRAVENOUS PRN - dextrose 50 % 12.5 g injection 12.5 g INTRAVENOUS PRN - potassium chloride iv piggyback 20 mEq/100 mL 20 mEq INTRAVENOUS PRN - magnesium sulfate in water 2 g in sterile water 50 ml 2 g INTRAVENOUS PRN(NO DISPENSE) - acetaminophen 650 mg tab(s) (TYLENOL) 650 mg ORAL q 6 H PRN - enoxaparin 40 mg injection (LOVENOX) 40 mg SUBCUTANEOUS DAILY - NaCl 0.9% iv infusion 50 mL/hr INTRAVENOUS CONTINUOUS - albuterol 2.5 mg /3 mL (0.083 %) 2.5 mg (PROVENTIL) 2.5 mg INHALATION q 2 H PRN - atorvastatin 40 mg tab(s) (LIPITOR) 40 mg ORAL AT BEDTIME - ondansetron (PF) 4 mg injection (ZOFRAN) 4 mg INTRAVENOUS q 6 H PRN - oxyCODONE-acetaminoph en 5-325 mg 1-2 tablet (PERCOCET) 1-2 tablet ORAL q 4 H PRN - morphine 2-4 mg injection 2-4 mg INTRAVENOUS q 1 H PRN - ipratropium-albuterol 3 mL nebulizer solution (DUONEB) 3 mL INHALATION q 4 H - aspirin 162 mg chewable tab(s) 162 mg ORAL DAILY - pantoprazole DR 40 mg tab(s) (PROTONIX) 40 mg ORAL DAILY (6 AM) - bisacodyl 10 mg suppository (DULCOLAX) 10 mg RECTAL DAILY PRN - polyethylene glycol 3350 17 g packet (MIRALAX, GLYCOLAX) 17 g ORAL DAILY - senna-docusate 8.6-50 mg 1 tablet (SENNA-S) 1 tablet ORAL BID - PHENYLephrine 80 mg in D5W 250 mL (NIRANJAN-SYNEPHRINE) 25-300 mcg/min INTRAVENOUS CONTINUOUS - vasopressin 20 Units in D5W 100 mL (VASOSTRICT) 0.03 Units/min INTRAVENOUS CONTINUOUS - NORepinephrine 16 mg in D5W 250 mL (LEVOPHED) 0.5-50 mcg/min INTRAVENOUS CONTINUOUS - brimonidine 0.2 % 1 Drop (ALPHAGAN) 1 Drop LEFT EYE BID () - latanoprost 0.005 % 1 Drop (XALATAN) 1 Drop BOTH EYES BID () - insulin lispro 12 Units pen (rapid acting) (HumaLOG KWIKPEN) 12 Units SUBCUTANEOUS w MEALS - ferrous sulfate 325 mg tab(s) 325 mg ORAL BID w MEALS - ascorbic acid (vitamin C) 500 mg tab(s) (VITAMIN C) 500 mg ORAL BID Allergies As of Date: 03/25/2019 (No Known Allergies) Fully Assessed 03/25/2019 COMPLETE REVIEW OF SYSTEMS: Review of Systems Constitutional: Positive for fatigue. Negative for diaphoresis. HENT: Positive for hearing loss. Negative for ear pain. Eyes: Negative for pain. Respiratory: Positive for shortness of breath. Negative for cough. Cardiovascular: Negative for chest pain, palpitations and leg swelling. Gastrointestinal: Negative for abdominal pain. Endocrine: Negative for polydipsia and polyphagia. Genitourinary: Negative for dysuria and hematuria. Musculoskeletal: Negative for back pain. Skin: Negative for pallor. Neurological: Negative for dizziness and syncope. Psychiatric/Behaviora l: The patient is not nervous/anxious. Objective Physical Exam Constitutional: He is oriented to person, place, and time. He appears well-developed and well-nourished. No distress. Sitting in a chair. HENT: Head: Normocephalic and atraumatic. Eyes: Pupils are equal, round, and reactive to light. Conjunctivae are normal. Neck: Right IJ TLC present. Cardiovascular: Normal rate and regular rhythm. Pulmonary/Chest: No stridor. No respiratory distress. He has no wheezes. He has no rales. Coarse breasts sounds bilaterally. Abdominal: There is no tenderness. Musculoskeletal: He exhibits no edema. Neurological: He is alert and oriented to person, place, and time. Skin: Skin is warm and dry. No rash noted. Psychiatric: He has a normal mood and affect. Judgment normal. Patient Vitals for the past 24 hrs: BP Temp Temp src Pulse Resp SpO2 Weight 04/04/19 1713 ? ? ? 95 18 92 % ? 04/04/19 1500 ? 36.6 ?C (97.9 ?F) Temporal ? 04/04/19 1100 ? 36.4 ?C (97.5 ?F) Temporal ? 04/04/19 0700 ? 37.1 ?C (98.8 ?F) ? 81 ? 97 % ? 04/04/19 0630 111/56 37.1 ?C (98.8 ?F) Bladder 80 ? 99 % ? 04/04/19 0620 125/91 ? ? 105 ? 100 % 109.3 kg (240 lb 15.4 oz) 04/04/19 0600 135/58 ? ? 81 ? 97 % ? 04/04/19 0530 99/55 ? ? 78 ? 95 % ? 04/04/19 0500 99/56 37.1 ?C (98.8 ?F) ? 77 ? 95 % ? 04/04/19 0430 (!) 106/49 37.1 ?C (98.8 ?F) ? 78 ? 94 % ? 04/04/19 0411 ? ? ? 86 18 95 % ? 04/04/19 0400 104/57 37.1 ?C (98.8 ?F) ? 76 ? 95 % ? 04/04/19 0330 109/56 37.2 ?C (99 ?F) ? 79 ? 95 % ? 04/04/19 0300 99/50 37.3 ?C (99.1 ?F) ? 78 ? 95 % ? 04/04/19 0259 111/51 37.3 ?C (99.1 ?F) ? 78 ? 95 % ? 04/04/19 0230 101/55 37.3 ?C (99.1 ?F) ? 80 ? 95 % ? 04/04/19 0200 104/51 37.3 ?C (99.1 ?F) ? 79 ? 96 % ? 04/04/19 0130 119/59 37.3 ?C (99.1 ?F) ? 83 ? 96 % ? 04/04/19 0100 117/53 ? ? 87 ? 95 % ? 04/04/19 0030 100/56 37.4 ?C (99.3 ?F) ? 85 ? 95 % ? 04/04/19 0001 ? ? ? 91 17 94 % ? 04/04/19 0000 104/56 37.5 ?C (99.5 ?F) ? 85 ? 95 % ? 04/03/19 2330 108/51 37.5 ?C (99.5 ?F) ? 86 ? 95 % ? 04/03/19 2300 ? 37.6 ?C (99.7 ?F) ? 83 ? 95 % ? 04/03/190 ? 37.7 ?C (99.9 ?F) ? 86 ? 95 % ? 04/03/192221 ? 37.7 ?C (99.9 ?F) ? 87 ? 95 % ? 04/03/192200 ? 37.8 ?C (100 ?F) ? 91 ? 97 % ? 04/03/19 2100 126/59 37.9 ?C (100.2 ?F) ? 103 ? 96 % ? 04/03/19 2030 ? (!) 38 ?C (100.4 ?F) Bladder 91 ? 95 % ? 04/03/19 2017 ? ? ? 98 ? 95 % ? 04/03/19 2000 127/64 (!) 38.1 ?C (100.6 ?F) Robins Therm 97 18 96 % ? 04/03/19 1930 ? (!) 38.2 ?C (100.8 ?F) ? 100 24 95 % ? 04/03/19 1900 128/60 (!) 38.2 ?C (100.8 ?F) Robins Therm 91 8 93 % ? 04/03/19 1800 133/67 (!) 38.2 ?C (100.8 ?F) Robins Therm 105 23 93 % ? Body mass index is 29.33 kg/m?. DATA: Diagnostic tests reviewed for today's visit: Most recent labs and imaging results. Assessment conditions: 68-year-old male with essential hypertension, multivessel coronary disease, sustained monomorphic ventricular tachycardia in the setting of acute ischemia, preserved left ventricular systolic function. Ventricular tachycardia appears to have a reversible cause, and therefore would not recommend ICD implantation or antiarrhythmic therapy. Current episodes of NSVT may be related to very recent cardiac surgery and intravenous inotropes. Would continue telemetry monitoring. SIGNATURE: José Kenendy MD PATIENT NAME: Rigo Diaz DATE: April 04, 2019 TIME: 5:29 PM PAGER: [phone] Normal [facility] CONSULT HNO ID: [id number] Author: Lise Luis Service: Endocrinology Author Type: Physician Type: Consults Filed: 04/04/2019 2:09 PM Note Text: DIABETES INITIAL CONSULT PATIENT NAME: Rigo Diaz SERVICE DATE: 04/04/2019 SERVICE TIME: 12:57 PM REASON FOR CONSULT: DM Type 2 REQUESTING PHYSICIAN:No referring provider defined for this encounter. PRIMARY CARE PHYSICIAN: Carol Mckee MD Subjective HISTORY OF PRESENT ILLNESS: Mr. Diaz is a 68 year old male presenting as a new patient to me regarding DM Type 2. HbA1c 6.7 h/o CAD s/p inferior HAYDEN x2 (10/2017), HTN, HLD, DM2, active tobacco use, Left subclavian artery stenosis, GERD initially presenting on 03/23/19 to [facility] with diaphoresis, palpitations, and dizziness/lightheaded ness. Patient states that he initially was on the stairs from his basement when he collapsed. He was rushed to [facility] by EMS and found to be in Vtach. He received one shock and and was bolused with amiodarone at which point he returned to [facility]. Patient had a cath on Monday morning (03/25/19) that showed multivessel CAD that required CABG. Patient was transported to [facility] for CTS assessment; had CABG done on 04/02/2019. DIET HEART HEALTHY Recent Labs 04/04/19 1144 04/04/19 0752 04/04/19 0608 04/04/19 0250 04/03/19 0415 04/02/192017 GLUC -- -- -- -- 158* -- 92 -- 90 GLUCOSEMETER 161* 147* 150* < > -- < > -- < > -- < > = values in this interval not displayed. 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 - PAST SURGICAL HISTORY OF 2002 herniorrhaphy left inguinal - PAST SURGICAL HISTORY OF 1963 elbow surgery bone chips - REMOVE CATARACT, INSERT LENS,EX 2010 OD - REMOVE CATARACT, INSERT LENS,EX OS 07/23/12 OS - TRABECULECTOMY WITH SCARRING 2010 OD FAMILY HISTORY Problem Relation Age of Onset - Emphysema Father - No Ocular Disease Father - Coronary Artery Disease Mother - No Ocular Disease Mother - Macular Degen Other Social History Tobacco Use - Smoking status: Current Every Day Smoker Packs/day: 1.00 Years: 50.00 Pack years: 50.00 Types: Cigarettes - Smokeless tobacco: Never Used Substance Use Topics - Alcohol use: No - Drug use: No CURRENT MEDICATION: Current Facility-Administered Medications Medication Dose Route Frequency Provider Last Rate Last Dose - brimonidine 0.2 % 1 Drop (ALPHAGAN) 1 Drop LEFT EYE BID () Gabriela Turakhia 1 Drop at 04/04/19 0326 - latanoprost 0.005 % 1 Drop (XALATAN) 1 Drop BOTH EYES BID () Gabriela Turakhia 1 Drop at 04/04/19 0326 - ipratropium-albuterol 3 mL nebulizer solution (DUONEB) 3 mL INHALATION q 4 H Gabriela Aviakhia 3 mL at 04/04/19 0411 - aspirin 162 mg chewable tab(s) 162 mg ORAL DAILY Shawna (Pa) Shavonne 162 mg at 04/04/19 1012 - pantoprazole DR 40 mg tab(s) (PROTONIX) 40 mg ORAL DAILY (6 AM) Shawna (Pa) Shavonne 40 mg at 04/04/19 0600 - bisacodyl 10 mg suppository (DULCOLAX) 10 mg RECTAL DAILY PRN Shawna (Pa) Shavonne - polyethylene glycol 3350 17 g packet (MIRALAX, GLYCOLAX) 17 g ORAL DAILY Shawna (Pa) Shavonne 17 g at 04/04/19 1011 - senna-docusate 8.6-50 mg 1 tablet (SENNA-S) 1 tablet ORAL BID Shawna (Pa) Shavonne 1 tablet at 04/04/19 1012 - PHENYLephrine 80 mg in D5W 250 mL (NIRANJAN-SYNEPHRINE) 25-300 mcg/min INTRAVENOUS CONTINUOUS Shawna (Pa) Shavonne 7.5 mL/hr at 04/04/19 1200 40 mcg/min at 04/04/19 1200 - vasopressin 20 Units in D5W 100 mL (VASOSTRICT) 0.03 Units/min INTRAVENOUS CONTINUOUS Mickie (Miguelito) Diana 9 mL/hr at 04/04/19 1023 0.03 Units/min at 04/04/19 1023 - NORepinephrine 16 mg in D5W 250 mL (LEVOPHED) 0.5-50 mcg/min INTRAVENOUS CONTINUOUS Ry (Leonard) José Antonio Stopped at 04/04/19 1030 - insulin regular iv infusion 100 units in NaCl 0.9% 100 mL - AK CARD SURG NOMOGRAM 0-12 Units/hr INTRAVENOUS CONTINUOUS Shawna (Pa) Shavonne 5 mL/hr at 04/04/19 1145 5 Units/hr at 04/04/19 1145 - insulin regular human iv bolus 10 Units 10 Units INTRAVENOUS PRN Shawna (Pa) Shavonne - dextrose 50 % 12.5 g injection 12.5 g INTRAVENOUS PRN Shawna (Pa) Shavonne - potassium chloride iv piggyback 20 mEq/100 mL 20 mEq INTRAVENOUS PRN Shawna (Pa) Shavonne 100 mL/hr at 04/04/19 0325 20 mEq at 04/04/19 032 - magnesium sulfate in water 2 g in sterile water 50 ml 2 g INTRAVENOUS PRN(NO DISPENSE) Shawna (Pa) Shavonne 50 mL/hr at 04/04/19 0325 2 g at 04/04/19 0325 - acetaminophen 650 mg tab(s) (TYLENOL) 650 mg ORAL q 6 H PRN Shawna (Pa) Shavonne 650 mg at 04/03/19 1737 - enoxaparin 40 mg injection (LOVENOX) 40 mg SUBCUTANEOUS DAILY Shawna (Pa) Shavonne 40 mg at 04/04/19 1011 - NaCl 0.9% iv infusion 50 mL/hr INTRAVENOUS CONTINUOUS Shawna (Pa) Shavonne 50 mL/hr at 04/04/19 0408 50 mL/hr at 04/04/19 0408 - albuterol 2.5 mg /3 mL (0.083 %) 2.5 mg (PROVENTIL) 2.5 mg INHALATION q 2 H PRN Shawna (Pa) Shavonne - atorvastatin 40 mg tab(s) (LIPITOR) 40 mg ORAL AT BEDTIME Shawna (Pa) Shavonne 40 mg at 04/03/19 2059 - ondansetron (PF) 4 mg injection (ZOFRAN) 4 mg INTRAVENOUS q 6 H PRN Shawna (Pa) Shavonne - oxyCODONE-acetaminoph en 5-325 mg 1-2 tablet (PERCOCET) 1-2 tablet ORAL q 4 H PRN Shawna (Pa) Shavonne 2 tablet at 04/04/19 0600 - morphine 2-4 mg injection 2-4 mg INTRAVENOUS q 1 H PRN Shawna (Pa) Shavonne 4 mg at 04/03/19 1432 Allergies As of Date: 03/25/2019 (No Known Allergies) Fully Assessed 03/25/2019 General: no fever, chills or acute changes in weight in the last 6 months Skin: no rashes, pruritis or dry skin Eyes: no blurred or double vision or eye pain Cardiac: as per HPI Pulmonary: as per HPI GI: denies nausea, vomiting, diarrhea or constipation Neuro: denies numbnes/tingling in hands or feet and denies seizures Musc: denies history of upper or lower extremity weakness Endocrine: denies polyuria, polydipsia, nocturia, blurry vision or excessive fatigue Hematology: Negative for anemia, easy bleeding and bruising. Objective PHYSICAL EXAM: BP 111/56 Pulse 81 Temp 36.4 ?C (97.5 ?F) (Temporal) Resp 18 Ht 193 cm (6' 4) Wt 109.3 kg (240 lb 15.4 oz) SpO2 97% BMI 29.33 kg/m2 General Appearance: Well developed and well nourished appearance. No acute distress. Midsternal AND SVG incision dry AND intact, without redness, drainage or edema. Head/Eyes: Sclera clear, normal conjunctiva. EOMI Mouth/Pharynx: Teeth: Fair dentition. No lesions Neck: No JVD. Supple. Lungs: Normal respiratory effort. Clear lungs without rhonchi, rales, wheezing. Heart: regular rhythm and with some pvcs Peripheral Vascular/Arteries: pulses intact Abdomen: soft, non-tender and bowel sounds present Neurologic/Psychiatri c: Oriented to person, place, time. Normal affect. No gross focal neurologic deficits. Extremities: no edema DATA: Diagnostic tests reviewed for today's visit: Most recent labs and imaging results. Impression/Recommenda tions Diabetes mellitus type 2 with postop hyperglycemia, requiring iv insulin gtt post op; HbA1c 6.7; requiring iv insulin gtt for glycemic control postop; now at 5 units/hour and on pressors; taking po; recommend adding prandial humalog 12 units qac tid, continue iv insulin gtt per schedule B on Cabg protocol; check BS q 2hours while on insulin gtt; will transition to sq insulin when pressors off; will make further recommendation regarding home going regimen; diabetes edu and nitrition to see pt before discharge home NSTEMI (non-ST elevated myocardial infarction) CAD severe, s/p CANG 04/02/2019 SIGNATURE: Lise Luis MD DATE: April 04, 2019 TIME: 12:57 PM Normal [facility] NUTRITIONon 04-04-2019 NUTRITION HNO ID: [id number] Author: Rose Johnson Service: Nutrition Therapy Author Type: Registered Dietitian Type: Nutrition Filed: 04/04/2019 11:13 AM Note Text: NUTRITION THERAPY PATIENT EDUCATION SERVICE DATE: 04/04/2019 SERVICE TIME: 10:40am TOPIC: Cardiac Rehab: Mediterranean Diet Diagnosis: ADULT: Coronary Artery Disease READINESS TO LEARN Cognitive Ability: Alert and oriented Motivation to Learn: Interested Family Support: Unable to assess - Family not present Instruction Provided to: Patient Patient Learns Best by: Unable to Assess Factors Affecting Learning: None Physical Limitations Affecting Learning: None LEARNING RESPONSE Patient / Family Response: Verbalizes understanding of Mediterranean Diet Guidelines Method of Instruction: Written instruction - handouts Verbal instruction Supplemental Material Provided to Patient: Mediterranean Diet Guidelines Follow-Up Plan: Patient instructed to call with any further issues Referral (Recommendation): Nutrition - Outpatient MNT Billing: Initial Assess/15 min 2 units SIGNATURE: Rose Johnson RD,KORIN PATIENT NAME: Rigo Diaz DATE: April 04, 2019 TIME: 11:12 AM PAGER: [phone] Normal [facility] OPERATIVE NOon 04-04-2019 OPERATIVE NO HNO ID: [id number] Author: Colt Macias Service: Cardiac Surgery Author Type: Physician Type: Operative Report Filed: 04/08/2019 5:30 PM Note Text: [facility] - Operative Report RIGO DIAZ : 1950 AGE: 68. SEX: M PATIENT TYPE: I HOSP SVC: INTM LOCATION: [id number] ATTENDING PHYSICIAN: COLT MACIAS CSN NUMBER: [id number] DATE OF SURGERY/PROCEDURE: 04/02/2019 INCISION/PROCEDURE START TIME: 2:44 PM INCISION CLOSE/PROCEDURE END TIME: 7:42 PM PREOPERATIVE DIAGNOSIS: Multivessel coronary artery disease; non ST-elevation myocardial infarction; recurrent ventricular arrhythmias. POSTOPERATIVE DIAGNOSIS: Multivessel coronary artery disease; non ST-elevation myocardial infarction; recurrent ventricular arrhythmias. SURGEON: Colt Macias MD SENIOR RESTAURANT MANAGER: 1. Ms. Marvin. 2. Ms. Scruggs. SURGERY/PROCEDURE: Coronary artery bypass graft x3 with attempted left internal mammary artery to left anterior descending graft; reverse saphenous vein graft to the left anterior descending artery after dissection of the left internal mammary graft; reverse saphenous vein graft to the obtuse marginal branch; reverse saphenous vein graft to the posterior descending artery; with endoscopic vein harvesting performed by Dr. Macias. ANESTHESIA: Performed under general anesthesia. The cross-clamp time and the perfusion time are per the perfusion record. FINDINGS: Included normal left ventricular function pre and postoperatively; excellent graft flows following completion of bypass grafting; we did have dissection of the left intramammary artery graft requiring replacement of the vein graft. ESTIMATED BLOOD LOSS: 250 cc. COMPLICATIONS: No complications. INDICATIONS: This is a 68-year-old male with known coronary artery disease, previous stenting of the right coronary, previous infarction, presents with episodes of VT, is found to have suffered a von-[id number]-[id number] myocardial infarction who underwent cardiac catheterization reveals severe multivessel coronary artery disease including 70% ostial left main; 70% mid circ marginal; 80% proximal LAD lesion; and 70% RCA lesion. He had normal left ventricular function. No valvular abnormalities. Preop assessment also revealed that he had a nearly completely occluded left subclavian artery, which was not amenable to intervention and vascular surgery consultation. We recommended myocardial revascularization. The procedure, the intended benefits, potential complications, and staff in the case were discussed at length. All questions were answered. He understood and he consent to proceed. DESCRIPTION OF PROCEDURE: A preoperative Huddle was performed. He was brought to the operating room, placed on the operating table in supine position. Central venous and right radial access were obtained. He was given general anesthesia, intubated. A DENA probe was placed. A Robins catheter was placed. He was prepped, draped sterilely. He received perioperative IV antibiotics, beta blockade as per IV heparin. A time-out was performed. A median sternotomy was made. The left internal mammary artery was dissected as a skeletonized graft, it was taken as a free graft, given the known severe left subclavian stenosis. Simultaneously, portions of the left greater saphenous vein were harvested in endoscopic fashion and the heart size closed in layers with absorbable suture. The sternal wood experimental mechanic was placed in the wound. A pericardial well was made. The ascending aorta was free of any palpable atherosclerotic disease. LV function overall appeared well preserved. He was heparinized and cannulated for cardiopulmonary bypass via the aorta and right atrium. After an adequate HCT was achieved, cardiopulmonary bypass was initiated and the ventilation was stopped. The aortic root was vented. A retrograde cardioplegia cannula was placed in coronary sinus. Aortic cross-clamp was applied and the heart was arrested with 1500 cc of combined antegrade and retrograde clod blood cardioplegia and thereafter bolus of cardioplegia administered every 15-20 minutes. The aforementioned distal anastomoses were completed with running 7-0 Prolene suture end-to-side and proximal anastomoses with the 2 initial vein grafts were constructed with running 6-0 Prolene suture end-to-side. Upon completion of the distal anastomosis with the HUIZAR to LAD, we injected the graft and had diffuse leaking from the anastomosis and we became evident that the entire graft had dissected, therefore this graft was taken down and a short remaining segment of vein graft was anastomosed to the LAD with running 7-0 Prolene suture end-to-side. The stent was taken off the vein graft to the obtuse marginal branch as an end-to-side Y- graft using running 7-0 Prolene suture end-to-side. The cross-clamp was removed. The heart regained sinus rhythm. Ventilations were then resumed. We then weaned from bypass, decannulated, and reversed heparin with protamine. DENA confirmed normally functioning graft, flows were excellent on flow probe analysis. Right atrial and right ventricular pacing leads were placed and secured to the skin. Hemostasis was obtained. The sternum was closed with wires. Pectoral fascia, subcutaneous tissue, and skin closed in layers with absorbable suture. Dry sterile dressings were applied. Sponge counts and needle counts were correct. The patient was then returned to CVICU in good condition after sign-out. Colt Macias MD JAL:[id number] /[id number] Normal [facility] OPERATIVE NO HNO ID: [id number] Author: Colt Macias Service: Cardiac Surgery Author Type: Physician Type: Operative Report Filed: 04/08/2019 5:30 PM Note Text: [facility] - Operative Report DIAZRIGO : 1950 AGE: 68. SEX: M PATIENT TYPE: I HOSP SVC: INTM LOCATION: [id number] ATTENDING PHYSICIAN: COLT MACIAS CSN NUMBER: [id number] DATE OF SURGERY/PROCEDURE: 04/02/2019 INCISION/PROCEDURE START TIME: 2:44 PM INCISION CLOSE/PROCEDURE END TIME: 7:42 PM PREOPERATIVE DIAGNOSIS: Non ST-elevation myocardial infarction complicated by ventricular arrhythmias. POSTOPERATIVE DIAGNOSIS: Non ST-elevation myocardial infarction complicated by ventricular arrhythmias. SURGEON: Colt Macias MD SENIOR RESTAURANT MANAGER: 1. Ms. Marvin. 2. Ms. Trumpower. SURGERY/PROCEDURE: Coronary artery bypass graft x3 with attempted left internal mammary artery to left anterior descending artery graft; reverse saphenous vein graft to left anterior descending artery after dissection of the left internal mammary artery graft; reverse saphenous vein graft to the obtuse marginal branch; reverse saphenous vein graft to the posterior descending artery; with endoscopic vein harvesting. ANESTHESIA: Performed under general anesthesia. The cross-clamp time and the perfusion time are per the perfusion record. COMPLICATIONS: There were no complications. It is to be noted, however, that our intention had been to perform HUIZAR to LAD grafting and after completion of the distal anastomosis upon opening flow, we noted dissection along the entire length of the HUIZAR graft and so this was abandoned and reconstructed as a saphenous vein graft to the left anterior descending artery. ESTIMATED BLOOD LOSS: 230 cc. FINDINGS: Included normal left ventricular function pre and postoperatively, and excellent graft flows on completion of the procedure. INDICATION: This 68-year-old man who has a history of coronary artery disease and previous stenting of the right coronary with multiple significant comorbidities including ongoing tobacco use, COPD, who presented with ventricular arrhythmias, was found to have non-STEMI and multivessel coronary artery disease. This included DICTATION ENDS HERE. Colt Macias MD JAL:[id number] /[id number] Normal [facility] PROGRESSon 04-04-2019 PROGRESS HNO ID: [id number] Author: Jeramie Jama Service: Critical Care Author Type: Physician Type: Progress Notes Filed: 04/04/2019 9:47 AM Note Text: MICU - PROGRESS NOTE SERVICE DATE: April 04, 2019 Admission Date: 03/25/2019 AGE: [age] year old LOS: 10 days Subjective No complaints. Objective PROBLEMS: ACTIVE PROBLEM LIST Unspecified Disorder of Skin and Subcutaneous Tissue Type II Or Unspecified Type Diabetes Mellitus Without Mention of Complication, Not Stated As Uncontrolled Unspecified Essential Hypertension Other and Unspecified Hyperlipidemia Cardiac Dysrhythmia, Unspecified Tobacco Use Disorder Psychosexual Dysfunction With Inhibited Sexual Excitement Obesity, Unspecified Coronary Atherosclerosis of Unspecified Type of Vessel, [place] Or Graft Unspecified Hearing Loss Lumbago Peripheral Vascular Disease, Unspecified (Hcc) Congenital Pes Planus Djd (Degenerative Joint Disease) 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, Severe Stage 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 - PAST SURGICAL HISTORY OF 2002 herniorrhaphy left inguinal - PAST SURGICAL HISTORY OF 1963 elbow surgery bone chips - REMOVE CATARACT, INSERT LENS,EX 2010 OD - REMOVE CATARACT, INSERT LENS,EX OS 07/23/12 OS - TRABECULECTOMY WITH SCARRING 2010 OD Social History Socioeconomic History Marital status: Spouse name: Not on file Number of children: Not on file Years of education: Not on file Highest education level: Not on file Occupational History Not on file Social Needs Financial resource strain: Not on file Food insecurity: Worry: Not on file Inability: Not on file Transportation needs: Medical: Not on file Non-medical: Not on file Tobacco Use Smoking status: Current Every Day Smoker Packs/day: 1.00 Years: 50.00 Pack years: 50 Types: Cigarettes Smokeless tobacco: Never Used Substance and Sexual Activity Alcohol use: No Drug use: No Sexual activity: Not on file Lifestyle Physical activity: Days per week: Not on file Minutes per session: Not on file Stress: Not on file Relationships Social connections: Talks on phone: Not on file Gets together: Not on file Attends bahai service: Not on file Active member of club or organization: Not on file Attends meetings of clubs or organizations: Not on file Relationship status: Not on file Intimate partner violence: Fear of current or ex partner: Not on file Emotionally abused: Not on file Physically abused: Not on file Forced sexual activity: Not on file Other Topics Concerns: Not on file Social History Narrative Not on file VITAL SIGNS (last 24hrs min/max): Temp Av.8 ?C (98.3 ?F) Min: 35.8 ?C (96.4 ?F) Max: 37.1 ?C (98.8 ?F) Pulse Av.2 Min: 62 Max: 87 Arterial BP 1 Min: 80/41 Max: 133/65 Cuff BP Min: 86/50 Max: 115/54 Pain Level: 2 Vital signs reviewed. BP 111/56 Pulse 81 Temp (Src) 98.8 (Bladder) Resp 18 Ht 6' 4 (1.93m) Wt 240 lb 15.4 oz (109.3kg) SpO2 97% BMI 29.34 kg/(m2). O2 Therapy: Room Air, Liters: . Temp (24hrs), Av.4 ?C (99.4 ?F), Min:36.4 ?C (97.5 ?F), Max:38.2 ?C (100.8 ?F) NET FLUID BALANCE Intake/Output Summary (Last 24 hours) at 04/04/2019 0945 Last data filed at 04/04/2019 0620 Gross per 24 hour Intake 5846.8 ml Output 3125 ml Net 2721.8 ml MEDICATIONS Current Facility-Administered Medications Medication Dose Route Frequency - brimonidine 0.2 % 1 Drop (ALPHAGAN) 1 Drop LEFT EYE BID () - latanoprost 0.005 % 1 Drop (XALATAN) 1 Drop BOTH EYES BID () - ipratropium-albuterol 3 mL nebulizer solution (DUONEB) 3 mL INHALATION q 4 H - aspirin 162 mg chewable tab(s) 162 mg ORAL DAILY - pantoprazole DR 40 mg tab(s) (PROTONIX) 40 mg ORAL DAILY (6 AM) - bisacodyl 10 mg suppository (DULCOLAX) 10 mg RECTAL DAILY PRN - polyethylene glycol 3350 17 g packet (MIRALAX, GLYCOLAX) 17 g ORAL DAILY - senna-docusate 8.6-50 mg 1 tablet (SENNA-S) 1 tablet ORAL BID - PHENYLephrine 80 mg in D5W 250 mL (NIRANJAN-SYNEPHRINE) 25-300 mcg/min INTRAVENOUS CONTINUOUS - vasopressin 20 Units in D5W 100 mL (VASOSTRICT) 0.03 Units/min INTRAVENOUS CONTINUOUS - NORepinephrine 16 mg in D5W 250 mL (LEVOPHED) 0.5-50 mcg/min INTRAVENOUS CONTINUOUS - insulin regular iv infusion 100 units in NaCl 0.9% 100 mL - [place] CARD SURG NOMOGRAM 0-12 Units/hr INTRAVENOUS CONTINUOUS - insulin regular human iv bolus 10 Units 10 Units INTRAVENOUS PRN - dextrose 50 % 12.5 g injection 12.5 g INTRAVENOUS PRN - potassium chloride iv piggyback 20 mEq/100 mL 20 mEq INTRAVENOUS PRN - magnesium sulfate in water 2 g in sterile water 50 ml 2 g INTRAVENOUS PRN(NO DISPENSE) - acetaminophen 650 mg tab(s) (TYLENOL) 650 mg ORAL q 6 H PRN - enoxaparin 40 mg injection (LOVENOX) 40 mg SUBCUTANEOUS DAILY - NaCl 0.9% iv infusion 50 mL/hr INTRAVENOUS CONTINUOUS - albuterol 2.5 mg /3 mL (0.083 %) 2.5 mg (PROVENTIL) 2.5 mg INHALATION q 2 H PRN - atorvastatin 40 mg tab(s) (LIPITOR) 40 mg ORAL AT BEDTIME - ondansetron (PF) 4 mg injection (ZOFRAN) 4 mg INTRAVENOUS q 6 H PRN - oxyCODONE-acetaminoph en 5-325 mg 1-2 tablet (PERCOCET) 1-2 tablet ORAL q 4 H PRN - morphine 2-4 mg injection 2-4 mg INTRAVENOUS q 1 H PRN Lines, Drains, and Airways Line Peripheral 03/30/19 1750 Right Forearm 20 Gauge 4 days Arterial Line 04/02/19 Arterial Line Right Radial 2 days Peripheral 04/02/19 Right Hand 18 Gauge 2 days Central Line Quadruple Lumen 04/02/19 1400 Right Neck 1 day Drain Chest Tube 04/02/19 Mediastinal 32 Fr 2 days Chest Tube 04/02/19 Pleural 28 Fr 2 days Indwelling Urinary Catheter 04/02/19 Temperature Monitoring 16 Fr 2 days PHYSICAL EXAM PERFORMED: General: No acute distress Cardiovascular: Regular rhythm Respiratory: Reduced breath sounds bilaterally; median sternotomy Abdomen: Soft Extremities: Edema- Yes Neurologic: Awake, oriented Respiratory/Nursing Documentation: O2 Therapy: Room Air (04/04/19 0800) Invasive Ventilator Mode: Continuous Positive Airway Pressure;Pressure Support Ventilation (04/02/192235) Set Ventilator Respiratory Rate (BPM): 12 (04/02/191999) Total Respiratory Rate (BPM): 17 (04/02/192235) Tidal Volume Set (mL): 500 (04/02/191999) Exhaled Tidal Volume (mL): 568 (04/02/192235) Minute Volume (L): 10.6 (04/02/192235) Peak Inspiratory Pressure (cm H2O): 11 (04/02/192235) PEEP/CPAP (cm H2O): 5 (04/02/192235) HEMODYNAMIC DATA: Reviewed NUTRITION: Enteral Feeds: Yes DATA: Diagnostic tests reviewed for today's visit, films/specimens were personally reviewed by me: Most recent labs and imaging results. LABS: Recent Labs 04/04/19 02504/02/19213004/02/19201704/02/19 0539 WBC 12.76* < > -- 19.92* -- 10.79* RBC 2.13* < > -- 4.06* -- 4.41* HB 7.2* < > -- 13.7 -- 14.8 HCT 22.2* < > -- 41.0 < > 43.4 MCV 104.2* < > -- 101.0* -- 98.4* PLT 151 < > -- 218 -- 265 GLUC 158* < > -- 90 -- 111* BUN 17 < > -- 17 -- 20* CREAT 0.94 < > -- 1.29* -- 1.09 NA 139 < > -- 141 < > 136 K 3.8 < > -- 3.8 < > 3.8 CHLOR 107 < > -- 112* -- 105 CO2 22 < > -- 21 -- 23 TPROT -- -- -- -- -- 6.9 ALB -- -- -- -- -- 3.4 CA 7.9* < > -- 8.2* -- 9.2 ALKPHOS -- -- -- -- -- 71 TBILI -- -- -- -- -- 0.4 AST -- -- -- -- -- 22 ALT -- -- -- -- -- 56 PTSEC -- -- -- 12.3 -- -- APTT -- -- 29.7 119.5* -- -- INR -- -- -- 1.14 -- -- MG 1.9 < > -- 2.7* -- -- < > = values in this interval not displayed. ABG: Recent Labs 04/03/19210104/03/19 1015 04/02/192014 PH 7.383 7.324* 7.255* PO2 108.0 74.7* 143.0* PCO2 32.1* 35.3 49.7* Assessment/Plan IMPRESSION: Critical Care Documentation: The patient has the following organ/system impairment(s): Anticipated post-operative respiratory insufficiency and hypotension sp CABG D#2 Smoker COPD Right lung nodules-indeterminate Left sc artery stenosis CAD sp PCI PAF DM LUE phlebitis secondary to infusion Acute blood loss anemia MMP CRITICAL CARE PLAN: Wean pressors Transfuse per primary service; may be beneficial given pressor requirements See orders Discussed with staff/patient/family SIGNATURE: Jeramie Jama MD PATIENT NAME: Rigo Diaz DATE: April 04, 2019 TIME: 9:45 AM Normal [facility] THERAPY NTon 04-04-2019 THERAPY NT HNO ID: [id number] Author: Lolly Gilliland/Gloria Stephen Service: Occupational Therapy Author Type: Occupational Therapist Type: Therapy (PT/OT/Speech/Resp) Filed: 04/04/2019 1:06 PM Note Text: Occupational Therapy Evaluation SERVICE DATE: 04/04/2019 SERVICE TIME: 1132 to 1157 ROOM: [id number] Recommended Discharge Disposition: Home Recommended Discharge Disposition Comments: Anticipate home with family assist if continues to progress towards goals. Anticipated Discharge Needs: Physical Assist at Home;Supervision at Home Physical Assist at Home for: Transfers;Cleaning;La undry;Meals;Stairs;Sa fety;Self Care;Shopping;Transpo rtation Supervision at Home due to: Decreased safety awareness OT Recommendations to Nursing: ADL?s in chair;With assist of 1 person;To Bathroom for ADL?s /and or Toileting;OOB for meals;Transfer to Chair OT 6 Clicks Score: 18 Precautions/Activity Restrictions: Fall Risk;Sternal;Lines/Tu bes/Drains;Cardiac Precaution/Activity Restriction Comments: Lines tubes, sternal precautions d/t CABG Isolation Type: None ASSESSMENT: Patient presents with deficits in grooming, UE bathing/dressing, LE bathing/dressing, functional transfers, functional mobility, decreased safety awareness, and decreased knowledge and maintenance of sternal precautions after emergent CABG s/p cardiac arrest/V tach with post of hypotension. Requires skilled OT for to maximize independence with out of bed activites of daily living,maintaining sternal precautions and functional transfers. Patient Disposition at Start of Session: OOB in Chair;Call Rosales in Reach Patient Disposition at End of Session: OOB in Chair;Call Rosales in Reach Tolerated Full Session Occupational Therapy Problem List: Cognitive Deficit;Education Deficit;Safety Deficits;Impaired Self Care;Decreased Activity Tolerance;Decreased Strength;Functional Mobility Impairment;Balance Impaired Patient /Caregiver Goals: Go Home;Care For Self Goals for Plan of Care: Grooming with: Stand By Assistance(standing at sink) Upper Body Bathing with: Stand By Assistance Upper Body Dressing with: Stand By Assistance Lower Body Bathing with: Contact Guard Assistance Lower Body Dressing with: Contact Guard Assistance Tolerate (minutes of functional activity): 15(standing ADLs) Functional Activity with: Modified Independent Additional Goal 1: Pt to don/doff sternal vest with CGA Additional Goal 2: Pt to maintain sternal precautions without cues Transfer: Pt to complete transfers while maintaining sternal precautions without cues Rehab Potential: Excellent PLAN: Treatment Frequency (times per week): 5(2-5) Current admission Treatment Interventions: Education;Self Care / Home Management;Strengthen ing;Functional Mobility Training;Cognitive Training Plan of Care developed with: Patient TREATMENT INTERVENTIONS: Therapy Diagnosis: Reduced mobility-other;Decrea sed activities of daily living (ADL);Muscle Weakness (generalized);Unstead iness on feet;Signs and Symptoms Involving Cognitive Functions and Awareness Interventions Provided: Evaluation $ Evaluation-High (95820) Billed Units: 1 unit OT Evaluation High Complexity: Occupational Profile - Expansive review of patient's medical record completed including patient's physical, cognitive, and psychosocial history (please see current hospital course of evaluation) . Occupational Performance - Pt presents with deficits in feeding, grooming, UE bathing/dressing, LE bathing/dressing, functional mobility, functional transfers, decreased safety awareness, decreased insight into deficits Complexity in Clinical Decision Making - The extent of clinical reasoning was complex, multiple treatment options present for the patient, need for modification during the evaluation was significant, the following comorbidities affect patient's occupational performance: acute mydocardial infarct, sustained vtach, HTN, DM2, Edu patient on sternal precautions and how they apply to ADLs/IADLs. Provided cardiac activity of daily living handout and briefly reviewed techs. Total Treatment Time (minutes): 24 SUBJECTIVE: Current Hospital Course: Chart reviewed; 68yo M initially presenting on 03/23/19 to [facility] with diaphoresis, palpitations, and dizziness/lightheaded ness. Patient states that he initially was on the stairs from his basement when he collapsed. He was rushed to [facility] by EMS and found to be in Vtach. He received one shock and and was bolused with amiodarone at which point he returned to [facility]. Patient had a cath on Monday morning (03/25/19) that showed multivessel CAD that required CABG. Patient was transported to [facility] for possible surgery. Had to wait 7 days after Brilinta dose prior to CABG. 04/02 CABG x 3 Post op recovery complicated by hypotension LUE phlebitis secondary to infusion Reason for Occupational Therapy Consult: safety assessment Relevant Past Medical History: acute mydocardial infarct, sustained vtach, HTN, DM2, Patient Report: I'm not dizzy yet Pt joking and appropriate throughout session. Pain: no c/o Home Environment Patient Lives With: Spouse Assistance Available: 24 Hour Entry To Home: Stairs Number Of Stairs Into Home: 3 Tub/Shower Type: tub/shower Laundry: can do Prior Functional Level: Within Functional Limits Prior Functional Level Comments: Patient independent with all ADLs, driving, and ambulation without device. Patient has a basement (full flight) where he enjoys spending time. OBJECTIVE: Cognition/Communicati on Deficits Responsiveness: Alert;Awake Follows Commands: 2-step Commands CURRENT FUNCTIONAL STATUS: Current Activities of Daily Living Assist Level Feeding Independent Grooming Contact Guard Assistance Bathing Upper Body Minimal Assistance Bathing Lower Body Minimal Assistance Dressing Upper Body Minimal Assistance Dressing Lower Body Moderate Assistance Toileting Minimal Assistance Functional Mobility Assist Level Rolling Supine to Sit Sit to Supine Scooting Sit to Stand Minimal Assistance Stand to Sit Contact Guard Assistance Bed to Chair Toilet/Commode Functional Mobility Contact Guard Assistance Range of Motion: WFL(NT formally due to sternal precautions) Strength: WFL(NT formally due to sternal precautions) Range of Motion: WFL(NT formally due to sternal precautions) Strength: WFL(NT formally due to sternal precautions) Edu pt on fall prevention / up with assistance. Pt left in room in chair with calllight within reach. Please see discipline specific clinical documentation flowsheet for complete details for this therapy evaluation/treatment. SIGNATURE: ELO Kenney/Denny PATIENT NAME: Rigo Diaz DATE: April 04, 2019 TIME: 1:01 PM Normal [facility] THERAPY NT HNO ID: [id number] Author: Mikcie DrakePtLindsay Lizama Service: Physical Therapy Author Type: Physical Therapist Type: Therapy (PT/OT/Speech/Resp) Filed: 04/04/2019 3:48 PM Note Text: Physical Therapy Evaluation SERVICE DATE: 04/04/2019 SERVICE TIME: 1135 to 1155 ROOM: [place] [address] Recommended Discharge Disposition: Home Anticipated Discharge Needs: Physical Assist at Home;Supervision at Home Physical Assist at Home for: Self Care;Shopping;Safety; Laundry;Cleaning;Meal s;Transportation Supervision at Home due to: (medical status change) PT Recommendations to Nursing: Ambulate with device;To bathroom;In halls;OOB for Meals;With assist of 2 people;Sit at edge of bed;Transfer to/from chair Device: Wheeled Walker PT 6 Clicks Score: 17 Precautions/Activity Restrictions: Fall Risk;Sternal;Lines/Tu bes/Drains;Cardiac Precaution/Activity Restriction Comments: Lines tubes, sternal precautions d/t CABG Isolation Type: None ASSESSMENT : This patient was admitted for NSTENI resulting in CABG surgery, has the past medical history of HTN, HLD, DM2, sustained Vtach, impacting current functional level, as well as the social factors complicating the discharge of stairs and sternal precautions. This patient is below baseline functioning of independent with all ADLs, driving, and ambulating without a device and will benefit from continued skilled therapy in the hospital for treatment of the following body systems/impairments: neuromuscular, musculoskeletal, cardiopulmonary (strength, endurance, balance, safety awareness, gait, transfers, sternal precautions d/t CABG). Patient presently in CVICU from CABG surgery. After managing lines, patient was able to ambulate in the halls in intervals of 50', needing periodic standing rest breaks. Patient only needing min physical assist due to line management and navigation through the halls with facilitation of cardiac cart. Patient eager to return home, where his can help him 30/01. Patient educated in all sternal precautions, demonstrating good understanding by recall and performance. Patient will benefit from continued skilled therapy to address listed impairments and maximize independence. Patient Disposition at Start of Session: OOB in Chair(Nursing staff present) Patient Disposition at End of Session: OOB in Chair;Nursing Personnel Present Tolerance Limited By Physiologic Response;Fatigue(Alba ls - and acuity of CABG) Physical Therapy Problem List: Pain;Safety Deficits;Impaired Self Care;Decreased Activity Tolerance;Decreased Range Of Motion;Decreased Strength;Functional Mobility Impairment;Balance Impaired Patient /Caregiver Goals: Go Home Goals for Plan of Care: Able to perform HEP with: Independent Rolling with: Stand By Assistance Transfer supine to/from sit with: Stand By Assistance Transfer sit to/from stand with: Stand By Assistance Ambulate with: Stand By Assistance Distance: 250 Device: Wheeled Walker;No Device Ambulate up and down steps with: Minimal Assistance Number of steps: 3 Device: Rail Rehab Potential: Good PLAN: Treatment Frequency (times per week): 5(2-5) Current admission Treatment Interventions: Education;Self Care / Home Management;Energy Conservation Training;Strengthenin g;Functional Mobility Training;Balance Training;Neuromuscula r Re-education;Pain Management Plan of Care developed with: Patient TREATMENT INTERVENTIONS: Therapy Diagnosis: Reduced mobility-other;Decrea sed activities of daily living (ADL);Unsteadiness on feet;Lack of coordination-other;Di fficulty walking-musculoskelet al Interventions Provided: Evaluation;Therapeuti c Activity (10226);Gait Training (90660) $ Evaluation-Moderate (75981) Billed Units: 1 unit History and examination of body systems see assessment section above. This patient?s clinical presentation is cardiac (CABGx3). The patient required a high complexity evaluation. Therapeutic Activity (45286) Treatment Minutes: 3 0 units Skilled Intervention(s): Instruction in sit to stand technique with proper hand placement and body positioning at edge of bed/chair Instruction in stand to sit technique with lower extremities touching chair/bed and keeping hands over chest, flexing at the trunk to sit<>Stand. Pt. Demo good understanding. Instruction in sit to and from stand technique with proper hand placement over chest due to sternal precautions. Education with sternal precautions of no reaching above 90 degrees overhead, pushing/pulling. Patient able to demo good understanding. Patient also educated on proper home set-up for safety and mobility techniques for safety as well. Gait Training (67737) Treatment Minutes: 3 0 units Skilled Intervention(s): Instruction in sit to stand technique with proper hand placement over chest and body positioning at edge of bed/chair, Instruction in stand to sit technique with LE's touching chair/bed and keeping hands over chest while flexing at the trunk for transfers, and Facilitation of cardiac cart for navigation and cueing for positioning of cart. Patient needing periodic rest breaks throughout ambulation training due to minimal fatigue and decreased endurance. Total Timed Code Treatment Minutes: 6 Total Treatment Time (minutes): 20 SUBJECTIVE: Current Hospital Course: Chart reviewed; NSTEMI resulting in CABG x3 SURGERY/PROCEDURE DATE: 04/02/2019 PROCEDURES AND ANESTHESIA: Procedure(s) and Anesthesia Type: * BYPASS GRAFT ARTERY CORONARY ON-PUMP THREE CORONARY VENOUS GRAFTS - General Great Saphenous Vein, Left , Percutaneous endoscopic Internal Thoracic Artery, Left , Open CABG x 3 (lsvg-lad; svg-om; svg-pda, evh); Reason for Physical Therapy Consult : eval and treat Relevant Past Medical History: acute mydocardial infarct, sustained vtach, HTN, DM2, Patient Report: Patient content and agreeable to therapy. Patient eager to return home, but also understanding of sternal precautions, doing a good job of demonstrating understanding and importance of keep precautions for safety. Home Environment Patient Lives With: Spouse Assistance Available: 24 Hour Entry To Home: Stairs Number Of Stairs Into Home: 3 Tub/Shower Type: tub/shower Laundry: can do Prior Functional Level: Within Functional Limits Prior Functional Level Comments: Patient independent with all ADLs, driving, and ambulation without device. Patient has a basement (full flight) where he enjoys spending time. OBJECTIVE: CURRENT FUNCTIONAL STATUS: Current Functional Mobility Assist Level Additional Information Rolling Supine to Sit Sit to Supine Scooting Minimal Assistance Sit to Stand Minimal Assistance Stand to Sit Minimal Assistance Bed to Chair Toilet/Commode Gait Minimal Assistance Gait Device: Other: See Comment(CVICU cart) Gait Distance (feet): 50' intervals Stairs Curb Step Car Transfer General Gait Deviations: Zuleyma decreased;Antalgic gait pattern;Step length decreased;Flexed trunk posture Range of Motion: WFL Except;ROM Limitation Comments ROM Limitation Comments: Limited upper extremities due to sternal precautions Strength: WFL Except;Strength Limitation Comments Strength Limitation Comments: Limited upper extremity use d/t sternal precautions - No MMT performed due to acute CABGx3 surgery, observed and functionally strong. -HLM: 7: Walk 25 feet or more Please see discipline specific clinical documentation flowsheet for complete details for this therapy evaluation/treatment. SIGNATURE: Wilder Charles, SPT PATIENT NAME: Rigo Diaz DATE: April 04, 2019 TIME: 12:23 PM Patient care delivered with direct supervision of PT Clinical Instructor in accordance with treatment plan. I reviewed and agree with the documentation corresponding to this therapy visit. SIGNATURE: Mickie Lizama, VIOLA DATE: April 04, 2019 TIME: 3:48 PM [facility] ECG COMPLETEon 04-03-2019 ECG COMPLETE NAME : RIGO DIAZ PID : [id number] : 1950 Gender : Male Race : ORD : [id number] Procedure Date : Apr 03 2019 05:23:16 Edit Date : Apr 03 2019 19:25:11 Diagnosis:ATRIAL PACED RHYTHM SINUS RHYTHM WITH OCCASIONAL PREMATURE VENTRICULAR COMPLEXES LOW VOLTAGE QRS NONSPECIFIC T WAVE ABNORMALITY PROLONGED QT ABNORMAL ECG WHEN COMPARED WITH ECG OF 02-APR-2019 20:20, PREMATURE VENTRICULAR COMPLEXES ARE NOW PRESENT RIGHT BUNDLE BRANCH BLOCK IS NO LONGER PRESENT Confirmed by DO MISHRA JEFF ([id number]) on 04/03/2019 7:25:09 PM Ventricular Rate : 70 BPM Atrial Rate : 70 BPM P-R Interval : 124 ms QRS Duration : 116 ms Q-T Interval : 454 ms QTC Calculation(Bazett) : 490 ms P Delta : 0 degrees R Delta : 5 degrees T Delta : 55 degrees Test Reason : Post-OP Location : 6 : [place] [address] Overread By : DO MISHRA JEFF Edited By : DO MISHRA JEFF Referred By : , Acquired by : CANDACE SIDDIQI [facility] NURSING PROGon 04-03-2019 NURSING PROG HNO ID: [id number] Author: Cherrie (Rn) BIBI Joseph Service: Nursing Author Type: Registered Nurse Type: Nursing Progress Note Filed: 04/03/2019 7:08 PM Note Text: Dr Macias paged about chest tube output and critical PTT of 119.5. STAT ACT ordered. 2102 ACT result of [address] Macias. 50 mg of protamine was ordered.2109 Repeated PTT was 29 and repeated ACT was 120. These results were called to Dr Macias [address] patient on BIPAP 2224 [facility] PLAN OF CAREon 04-03-2019 PLAN OF CARE HNO ID: [id number] Author: Keena Lopez (R Programmer) Service: Pharmacy Author Type: Pharmacist Type: Plan of Care Filed: 04/04/2019 3:40 PM Note Text: MEDICATION HISTORY AND MEDICATION RECONCILIATION Patient Name:Kristian Diaz : 1950 Source of history:Patient: Reliability of source: Appears reliable, clearly identified: Medication name, Medication dose, Medication route and Medication frequency and Pharmacy records: [facility] Medication Nonadherence Identified: No barriers noted The above information represents the best possible medication history: Yes Reconciliation completed? Yes All LPTA medications addressed by LIP Additional comments: [id number]-[id number] Medication List Adjustments: Medication Regimen Changes: None Medications Added: - Lisinopril/HCTZ - Atorvastatin - Brilinta Medications Removed: - Ibuprofen (patient states does not take) - Niacin (patient states does not take) - Seymour-3 fatty acids (patient states does not take) - Simvastatin (patient takes atorvastatin) Short-Term Medications: None Further Clarification Required: None Time Spent Reviewing Patient's Medications: 25 minutes Allergies: ALLERGIES No Known Allergies Preferred Pharmacy: [facility], if needed quickly patient uses [facility] in [place] (added to pharmacy list) Current LPTA Medications: Prior to Admission medications as of 04/03/19 4054 Medication Sig Last Dose Taking lisinopril-hydrochlor othiazide (PRINZIDE,ZESTORETIC) 20-12.5 mg per tablet Take 1 tablet by mouth once daily. Yes atorvastatin (LIPITOR) 40 mg tablet Take 40 mg by mouth once daily. Yes ticagrelor (BRILINTA) 90 mg tablet Take 90 mg by mouth twice daily. Yes ALPHAGAN P 0.1 % drop USE 1 DROP IN THE LEFT EYE TWICE A DAY Yes latanoprost (XALATAN) 0.005 % ophthalmic solution USE 1 DROP IN THE LEFT EYE DAILY AT BEDTIME, DISCARD AFTER 42 DAYS Yes METOPROLOL 50 MG TAB Take one(1) tablet two(2) times daily. Yes multivitamins w-minerals/lut(CENTRU M SILVER TAB) Take one(1) tablet daily. Yes aspirin(ECOTRIN LOW STRENGTH 81 MG TAB) Take one(1) tablet daily. Yes KEENA LOPEZ, [employer] April 03, 2019 5:34 PM Normal [facility] PROGRESSon 04-03-2019 PROGRESS HNO ID: [id number] Author: Jeramie Jama Service: Critical Care Author Type: Physician Type: Progress Notes Filed: 04/03/2019 1:13 PM Note Text: MICU - PROGRESS NOTE SERVICE DATE: April 03, 2019 Admission Date: 03/25/2019 AGE: [age] year old LOS: 9 days Subjective No complaints. Objective PROBLEMS: ACTIVE PROBLEM LIST Unspecified Disorder of Skin and Subcutaneous Tissue Type II Or Unspecified Type Diabetes Mellitus Without Mention of Complication, Not Stated As Uncontrolled Unspecified Essential Hypertension Other and Unspecified Hyperlipidemia Cardiac Dysrhythmia, Unspecified Tobacco Use Disorder Psychosexual Dysfunction With Inhibited Sexual Excitement Obesity, Unspecified Coronary Atherosclerosis of Unspecified Type of Vessel, [place] Or Graft Unspecified Hearing Loss Lumbago Peripheral Vascular Disease, Unspecified (Hcc) Congenital Pes Planus Djd (Degenerative Joint Disease) 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, Severe Stage 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 - PAST SURGICAL HISTORY OF 2002 herniorrhaphy left inguinal - PAST SURGICAL HISTORY OF 1963 elbow surgery bone chips - REMOVE CATARACT, INSERT LENS,EX 2010 OD - REMOVE CATARACT, INSERT LENS,EX OS 07/23/12 OS - TRABECULECTOMY WITH SCARRING 2010 OD Social History Socioeconomic History Marital status: Spouse name: Not on file Number of children: Not on file Years of education: Not on file Highest education level: Not on file Occupational History Not on file Social Needs Financial resource strain: Not on file Food insecurity: Worry: Not on file Inability: Not on file Transportation needs: Medical: Not on file Non-medical: Not on file Tobacco Use Smoking status: Current Every Day Smoker Packs/day: 1.00 Years: 50.00 Pack years: 50 Types: Cigarettes Smokeless tobacco: Never Used Substance and Sexual Activity Alcohol use: No Drug use: No Sexual activity: Not on file Lifestyle Physical activity: Days per week: Not on file Minutes per session: Not on file Stress: Not on file Relationships Social connections: Talks on phone: Not on file Gets together: Not on file Attends bahai service: Not on file Active member of club or organization: Not on file Attends meetings of clubs or organizations: Not on file Relationship status: Not on file Intimate partner violence: Fear of current or ex partner: Not on file Emotionally abused: Not on file Physically abused: Not on file Forced sexual activity: Not on file Other Topics Concerns: Not on file Social History Narrative Not on file VITAL SIGNS (last 24hrs min/max): Temp Av.8 ?C (98.3 ?F) Min: 35.8 ?C (96.4 ?F) Max: 37.1 ?C (98.8 ?F) Pulse Av.2 Min: 62 Max: 87 Arterial BP 1 Min: 80/41 Max: 133/65 Cuff BP Min: 86/50 Max: 115/54 Pain Level: 2 Vital signs reviewed. BP 86/50 Pulse 72 Temp (Src) 96.8 (Temporal) Resp 16 Ht 6' 4 (1.93m) Wt 248 lb 3.8 oz (112.6kg) SpO2 100% BMI 30.23 kg/(m2). O2 Therapy: Room Air, Liters: 0, %FIO2: 21 Temp (24hrs), Av.8 ?C (98.3 ?F), Min:35.8 ?C (96.4 ?F), Max:37.1 ?C (98.8 ?F) NET FLUID BALANCE Intake/Output Summary (Last 24 hours) at 04/03/2019 1240 Last data filed at 04/03/2019 1200 Gross per 24 hour Intake 5542 ml Output 3260 ml Net 2282 ml MEDICATIONS Current Facility-Administered Medications Medication Dose Route Frequency - ipratropium-albuterol 3 mL nebulizer solution (DUONEB) 3 mL INHALATION q 4 H - aspirin 162 mg chewable tab(s) 162 mg ORAL DAILY - PHENYLephrine 80 mg in D5W 250 mL (NIRANJAN-SYNEPHRINE) 25-300 mcg/min INTRAVENOUS CONTINUOUS - vasopressin 20 Units in D5W 100 mL (VASOSTRICT) 0.03 Units/min INTRAVENOUS CONTINUOUS - NORepinephrine 16 mg in D5W 250 mL (LEVOPHED) 0.5-50 mcg/min INTRAVENOUS CONTINUOUS - albumin (5%) 12.5 g infusion 12.5 g INTRAVENOUS ONCE - lactated ringers 1,000 mL iv bolus 1,000 mL INTRAVENOUS ONCE - insulin regular iv infusion 100 units in NaCl 0.9% 100 mL - AK CARD SURG NOMOGRAM 0-12 Units/hr INTRAVENOUS CONTINUOUS - insulin regular human iv bolus 10 Units 10 Units INTRAVENOUS PRN - dextrose 50 % 12.5 g injection 12.5 g INTRAVENOUS PRN - potassium chloride iv piggyback 20 mEq/100 mL 20 mEq INTRAVENOUS PRN - magnesium sulfate in water 2 g in sterile water 50 ml 2 g INTRAVENOUS PRN(NO DISPENSE) - acetaminophen 650 mg tab(s) (TYLENOL) 650 mg ORAL q 6 H PRN - enoxaparin 40 mg injection (LOVENOX) 40 mg SUBCUTANEOUS DAILY - NaCl 0.9% iv infusion 50 mL/hr INTRAVENOUS CONTINUOUS - albuterol 2.5 mg /3 mL (0.083 %) 2.5 mg (PROVENTIL) 2.5 mg INHALATION q 2 H PRN - ceFAZolin iv piggyback 2 g in D5W (iso-osmotic) 100 mL (ANCEF) 2 g INTRAVENOUS q 6 HR - ondansetron (PF) 4 mg injection (ZOFRAN) 4 mg INTRAVENOUS q 6 H PRN - oxyCODONE-acetaminoph en 5-325 mg 1-2 tablet (PERCOCET) 1-2 tablet ORAL q 4 H PRN - morphine 2-4 mg injection 2-4 mg INTRAVENOUS q 1 H PRN Lines, Drains, and Airways Line Peripheral 03/30/19 1750 Right Forearm 20 Gauge 3 days Arterial Line 04/02/19 Arterial Line Right Radial 1 day Peripheral 04/02/19 Right Hand 18 Gauge 1 day Central Line Quadruple Lumen 04/02/19 1400 Right Neck less than 1 day Drain Chest Tube 04/02/19 Mediastinal 32 Fr 1 day Chest Tube 04/02/19 Pleural 28 Fr 1 day Indwelling Urinary Catheter 04/02/19 Temperature Monitoring 16 Fr 1 day PHYSICAL EXAM PERFORMED: General: No acute distress Cardiovascular: Regular rhythm Respiratory: Reduced breath sounds bilaterally; median sternotomy Abdomen: Soft Extremities: Edema- Yes Neurologic: Awake, oriented Respiratory/Nursing Documentation: O2 Therapy: Room Air (04/03/19 0839) Invasive Ventilator Mode: Continuous Positive Airway Pressure;Pressure Support Ventilation (04/02/192235) Set Ventilator Respiratory Rate (BPM): 12 (04/02/191999) Total Respiratory Rate (BPM): 17 (04/02/192235) Tidal Volume Set (mL): 500 (04/02/191999) Exhaled Tidal Volume (mL): 568 (04/02/192235) Minute Volume (L): 10.6 (04/02/192235) Peak Inspiratory Pressure (cm H2O): 11 (04/02/192235) PEEP/CPAP (cm H2O): 5 (04/02/192235) HEMODYNAMIC DATA: Reviewed NUTRITION: Enteral Feeds: Yes DATA: Diagnostic tests reviewed for today's visit, films/specimens were personally reviewed by me: Most recent labs and imaging results. LABS: Recent Labs 04/03/19 0415 04/02/19213004/02/19201704/02/19 0539 WBC 17.32* -- -- 19.92* -- 10.79* RBC 2.96* -- -- 4.06* -- 4.41* HB 10.2* < > -- 13.7 -- 14.8 HCT 30.7* < > -- 41.0 < > 43.4 MCV 103.7* -- -- 101.0* -- 98.4* PLT 202 -- -- 218 -- 265 GLUC 92 -- -- 90 -- 111* BUN 17 -- -- 17 -- 20* CREAT 1.09 -- -- 1.29* -- 1.09 NA 145 -- -- 141 < > 136 K 4.5 -- -- 3.8 < > 3.8 CHLOR 120* -- -- 112* -- 105 CO2 19* -- -- 21 -- 23 TPROT -- -- -- -- -- 6.9 ALB -- -- -- -- -- 3.4 CA 6.9* -- -- 8.2* -- 9.2 ALKPHOS -- -- -- -- -- 71 TBILI -- -- -- -- -- 0.4 AST -- -- -- -- -- 22 ALT -- -- -- -- -- 56 PTSEC -- -- -- 12.3 -- -- APTT -- -- 29.7 119.5* -- -- INR -- -- -- 1.14 -- -- MG 1.9 -- -- 2.7* < > -- < > = values in this interval not displayed. ABG: Recent Labs 04/03/19 1015 04/02/19201404/02/19 1833 PH 7.324* 7.255* 7.343* PO2 74.7* 143.0* 209.0* PCO2 35.3 49.7* -- Assessment/Plan IMPRESSION: Critical Care Documentation: The patient has the following organ/system impairment(s): Anticipated post-operative respiratory insufficiency and hypotension sp CABG D#1 Smoker COPD Right lung nodules-indeterminate Left sc artery stenosis CAD sp PCI PAF DM LUE phlebitis secondary to infusion MMP CRITICAL CARE PLAN: Volume load Wean pressors See orders Discussed with staff/patient/family SIGNATURE: Jeramie Jama MD PATIENT NAME: Rigo Diaz DATE: April 03, 2019 TIME: 12:40 PM Normal [facility] PROGRESS HNO ID: [id number] Author: Shawna Marvin (Pa) Service: Cardiac Surgery Author Type: Physician Mri Special Procedures Technologist Type: Progress Notes Filed: 04/03/2019 5:32 PM Note Text: CARDIOTHORACIC SURGERY POSTOP PROGRESS NOTE SERVICE DATE: 04/03/2019 SERVICE TIME: 10:05 AM Subjective S/P SURGERY: Procedure(s) (LRB): BYPASS GRAFT ARTERY CORONARY ON-PUMP THREE CORONARY VENOUS GRAFTS (N/A) DATE OF SURGERY: 04/02/2019 POSTOP DAY #1 LOS: 9 INTERVAL EVENTS / PERTINENT ROS: Patient in bed, extubated. Slow to wean off pressors. Likely needs volume. Last night had increased chest tube output, critically high PTT and ACT requiring additional protamine. Chest tube output has since stabilized. Pressures were labile today with fluid resuscitation and eventually requiring additional pressor support. Objective Admission Weight: 105.9 kg (233 lb 7.5 oz) BP 86/50 Pulse 72 Temp 36 ?C (96.8 ?F) Resp 16 Ht 193 cm (6' 4) Wt 112.6 kg (248 lb 3.8 oz) SpO2 100% BMI 30.22 kg/m? Body surface area is 2.46 meters squared. Min/Max/Average Temperature AND Blood Pressure: Temp (24hrs), Av.8 ?C (98.3 ?F), Min:35.8 ?C (96.4 ?F), Max:37.1 ?C (98.8 ?F) Systolic (24hrs), Av , Min:86 , Max:115 Diastolic (24hrs), Av, Min:50, Max:62 Intake/Output Summary (Last 24 hours) at 04/03/2019 1005 Last data filed at 04/03/2019 0950 Gross per 24 hour Intake 4042 ml Output 2435 ml Net 1607 ml TELEMETRY: normal sinus rhythm PHYSICAL EXAM: General Appearance: Well developed and well nourished appearance. No acute distress. Midsternal AND SVG incision dry AND intact, without redness, drainage or edema. Head/Eyes: Sclera clear, normal conjunctiva. EOMI Mouth/Pharynx: Teeth: Fair dentition. No lesions Neck: No JVD. Supple. Lungs: Normal respiratory effort. Clear lungs without rhonchi, rales, wheezing. Heart: regular rhythm and with some pvcs Peripheral Vascular/Arteries: pulses intact Abdomen: soft, non-tender and bowel sounds present Neurologic/Psychiatri c: Oriented to person, place, time. Normal affect. No gross focal neurologic deficits. Extremities: no edema Lines, Drains, and Airways Line Peripheral 03/30/19 1750 Right Forearm 20 Gauge 3 days Arterial Line 04/02/19 Arterial Line Right Radial 1 day Peripheral 04/02/19 Right Hand 18 Gauge 1 day Central Line Quadruple Lumen 04/02/19 1400 Right Neck less than 1 day Drain Chest Tube 04/02/19 Mediastinal 32 Fr 1 day Chest Tube 04/02/19 Pleural 28 Fr 1 day Indwelling Urinary Catheter 04/02/19 Temperature Monitoring 16 Fr 1 day DATA: Diagnostic tests reviewed for today's visit: Chest X-RAY: Status post extubation and removal of enteric tube with remaining life-support equipment as noted. More prominent cardiomediastinal silhouette, considered likely accentuated by portable AP supine technique. Horizontal lucencies overlie the upper chest and axilla. ?Findings are considered likely to represent air trapped within skin folds. ? Subcutaneous emphysema is considered less likely. Recent Labs 04/03/19 0415 04/03/1922404/02/19 21304/02/19201704/02/19 1833 04/02/19 0539 04/02/19 0535 04/01/19 0432 RBC 2.96* -- -- 4.06* -- -- 4.41* -- 4.09* WBC 17.32* -- -- 19.92* -- -- 10.79* -- 10.23* HB 10.2* 12.2* -- 13.7 -- -- 14.8 -- 14.0 HCT 30.7* 36.7* -- 41.0 33* < > 43.4 -- 40.5 PLT 202 -- -- 218 -- -- 265 -- 241 INR -- -- -- 1.14 -- -- -- -- -- APTT -- -- 29.7 119.5* -- -- -- 67.2* 62.4* NA 145 -- -- 141 137* < > 136 -- 139 K 4.5 -- -- 3.8 4.1 < > 3.8 -- 3.8 CHLOR 120* -- -- 112* -- -- 105 -- 106 CO2 19* -- -- 21 -- -- 23 -- 25 BUN 17 -- -- 17 -- -- 20* -- 17 CREAT 1.09 -- -- 1.29* -- -- 1.09 -- 1.07 GLUC 92 -- -- 90 -- -- 111* -- 121* CA 6.9* -- -- 8.2* -- -- 9.2 -- 8.9 MG 1.9 -- -- 2.7* -- -- -- -- -- TPROT -- -- -- -- -- -- 6.9 -- 6.5 TBILI -- -- -- -- -- -- 0.4 -- 0.4 ALKPHOS -- -- -- -- -- -- 71 -- 70 ALT -- -- -- -- -- -- 56 -- 62 AST -- -- -- -- -- -- 22 -- 25 ANION 11 -- -- 12 -- -- 12 -- 12 < > = values in this interval not displayed. Recent Labs 04/02/19201404/02/19 1833 04/02/19 1819 04/02/19 1753 PH 7.255* 7.343* 7.365 7.384 PCO2 49.7* -- -- -- PO2 143.0* 209.0* 410.0* 341.0* BE -5.7* -- -- -- HCO3 -- 23.7 24.6 24.5 Assessment/Plan NSTEMI s/p CABG x 3 (svg-lad; svg-om; svg-pda; evh) -POD#1 -s/p acute KS in 10/2017 with hayden x 2 to rca -continue ASA 162, atorvastatin 40, hold metoprolol until off pressors -keep robins for strict IANDOs -maintain diana and chest tubes -Bowel regimen ordered for tomorrow -ambulate when pressors weaned -Pain control with orals and morphine -advance diet as tolerated Coagulopathy -critically high ptt -elevated act requiring additional protamine -chest tube output is stabilized Post-op vasoplegia -fluid resuscitation with LR and albumin -increased niranjan, add levophed and vasopressin -wean pressors with caution Anticipated post-op respiratory insufficiency -currently resolved Acute blood loss anemia -HANDH 10.2/30.7 -no transfusion at this time Leukocytosis -17.32; slight fever -continue to monitor Left subclavian stenosis -take BP in right side DM2 -new finding -will consult endocrine if not controlled with diet after pressors turned off HTN -hold meds until off pressors HLD -Atorvastatin Tobacco Use disorder -encourage cessation DVT ppx -lovenox, scds, beka kendelle GI ppx -protonix Planned in collaboration with Dr. Macias and CVICU team. Tests/Labs Ordered: 1. Chest X-ray 2. BMP 3. CBC SIGNATURE: Shawna Marvin PA-C PATIENT NAME: Rigo Diaz DATE: April 03, 2019 TIME: 10:05 AM PAGER/CONTACT #:[phone] ETX [phone] Normal [facility] THERAPY NTon 04-03-2019 THERAPY NT HNO ID: [id number] Author: Mickie Springm Service: Physical Therapy Author Type: Physical Therapist Type: Therapy (PT/OT/Speech/Resp) Filed: 04/03/2019 1:26 PM Note Text: PHYSICAL THERAPY MISSED VISIT SERVICE DATE: 04/03/2019 SERVICE TIME: 1325 to 1325 ROOM: [id number] Attempted Evaluation. Patient not seen due to Illness. Hold per RN. Will continue to follow patient as able. SIGNATURE: Mickie Lizama PT PATIENT NAME: Rigo Diaz DATE: April 03, 2019 TIME: 1:26 PM Normal [facility] ANES PREOPon 04-02-2019 ANES PREOP HNO ID: [id number] Author: Juan Chapman Service: Anesthesiology Author Type: Physician Type: Anesthesia PreOp Filed: 04/02/2019 12:45 PM Note Text: ANESTHESIOLOGY DAY OF SURGERY NOTE SERVICE DATE: 04/02/2019 SERVICE TIME: 12:44 PM : 1950 Procedure(s) (LRB): BYPASS GRAFT ARTERY CORONARY ON-PUMP THREE CORONARY VENOUS GRAFTS (N/A) Surgeon(s): Colt Macias Estimated body mass index is 28.42 kg/m? as calculated from the following: Height as of this encounter: 193 cm (6' 4). Weight as of this encounter: 105.9 kg (233 lb 7.5 oz). Most recent hematocrit and potassium results: Hematocrit 43.4 04/02/2019 Potassium 3.8 04/02/2019 ANES DOS/PREOP NOTE: Vitals: 04/02/19 0810 04/02/19 1109 04/02/19 1200 04/02/19 1241 BP: 139/62 115/54 Pulse: 64 64 63 Resp: 18 18 14 Temp: 36.6 ?C (97.9 ?F) 36.6 ?C (97.9 ?F) TempSrc: Oral Temporal SpO2: 95% 96% 96% Weight: 101.7 kg (224 lb 3.2 oz) Height: ACTIVE PROBLEM LIST Unspecified Disorder of Skin and Subcutaneous Tissue Type II Or Unspecified Type Diabetes Mellitus Without Mention of Complication, Not Stated As Uncontrolled Unspecified Essential Hypertension Other and Unspecified Hyperlipidemia Cardiac Dysrhythmia, Unspecified Tobacco Use Disorder Psychosexual Dysfunction With Inhibited Sexual Excitement Obesity, Unspecified Coronary Atherosclerosis of Unspecified Type of Vessel, [place] Or Graft Unspecified Hearing Loss Lumbago Peripheral Vascular Disease, Unspecified (Hcc) Congenital Pes Planus Djd (Degenerative Joint Disease) 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, Severe Stage 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 - PAST SURGICAL HISTORY OF 2002 herniorrhaphy left inguinal - PAST SURGICAL HISTORY OF 1963 elbow surgery bone chips - REMOVE CATARACT, INSERT LENS,EX 2010 OD - REMOVE CATARACT, INSERT LENS,EX OS 07/23/12 OS - TRABECULECTOMY WITH SCARRING 2010 OD FAMILY HISTORY Problem Relation Age of Onset - Emphysema Father - No Ocular Disease Father - Coronary Artery Disease Mother - No Ocular Disease Mother - Macular Degen Other Social History: Social History Tobacco Use - Smoking status: Current Every Day Smoker Packs/day: 1.00 Years: 50.00 Pack years: 50.00 Types: Cigarettes - Smokeless tobacco: Never Used Substance Use Topics - Alcohol use: No - Drug use: No No current facility-administered medications on file prior to encounter. Current Outpatient Medications on File Prior to Encounter: ALPHAGAN P 0.1 % drop USE 1 DROP IN THE LEFT EYE TWICE A DAY latanoprost (XALATAN) 0.005 % ophthalmic solution USE 1 DROP IN THE LEFT EYE DAILY AT BEDTIME, DISCARD AFTER 42 DAYS lisinopril 10 mg ORAL tablet Take 1 tablet by mouth once daily. simvastatin (ZOCOR) 40 mg ORAL tablet Take 1 tablet by mouth daily at bedtime. omega-3 fatty acids 1,000 mg ORAL Cap Take 1 capsule by mouth twice daily. METOPROLOL 50 MG TAB Take one(1) tablet two(2) times daily. multivitamins w-minerals/lut(CENTRU M SILVER TAB) Take one(1) tablet daily. niacin(NIASPAN 500 MG TAB) Take one(1) tablet daily aspirin(ECOTRIN LOW STRENGTH 81 MG TAB) Take one(1) tablet daily. IBUPROFEN 200 MG TAB as necessary taking 2679-5220 mg daily Current Facility-Administered Medications Medication Dose Route Frequency Provider Last Rate Last Dose - ceFAZolin iv piggyback 2 g in D5W (iso-osmotic) 100 mL (ANCEF) 2 g INTRAVENOUS ONCE Shawna (Pa) Shavonne - [MAR Hold due to Transfer] heparin 3,000 Units in NaCl 0.9% 500 mL irrigation 3,000 Units IRRIGATION ONCE Colt A - [SEP Hold due to Transfer] PHENYLephrine 20 mg in NaCl 0.9% 250 mL (NIRANJAN-SYNEPHRINE) 25-300 mcg/min INTRAVENOUS ONCE Colt A - [MAR Hold due to Transfer] aminocaproic acid 10 g in NaCl 0.9% 250 mL (AMicAR) 1 g/hr INTRAVENOUS ONCE Colt A - [SEP Hold due to Transfer] dexmedetomidine 400 mcg in NaCl 0.9% 100 mL (PRECEDEX) 0.2-0.7 mcg/kg/hr INTRAVENOUS ONCE A - [SEP Hold due to Transfer] EPINEPHrine 4 mg in NaCl 0.9% 250 mL 0.5-10 mcg/min INTRAVENOUS ONCE Colt A - [MAR Hold due to Transfer] insulin regular iv infusion 100 units in NaCl 0.9% 100 mL - AK CARD SURG NOMOGRAM 0-12 Units/hr INTRAVENOUS ONCE Colt A - [MAR Hold due to Transfer] nitroglycerin 100 mg in D5W 250 mL 5-20 mcg/min INTRAVENOUS ONCE Colt A - [SEP Hold due to Transfer] NORepinephrine 16 mg in NaCl 0.9% 250 mL (LEVOPHED) 0-20 mcg/min INTRAVENOUS ONCE Colt A - [MAR Hold due to Transfer] PHENYLephrine iv infusion 10 mg in NaCl 0.9% 250 mL (NIRANJAN-SYNEPHRINE) 0-100 mcg/min INTRAVENOUS ONCE Colt A - [MAR Hold due to Transfer] dextrose 50% in water 100 mL, insulin regular human 10 Units, potassium chloride 80 mEq, lidocaine (PF) 20 mg/mL (2 %) 100 mg, magnesium sulfate 4 g in electrolyte-a (PLASMA-LYTE A) 1,000 mL solution MISCELLANEOUS ONCE Colt A - [MAR Hold due to Transfer] dextrose 50% in water 50 mL, insulin regular human 5 Units, potassium chloride 20 mEq, lidocaine (PF) 20 mg/mL (2 %) 50 mg, magnesium sulfate 2 g in electrolyte-a (PLASMA-LYTE A) 500 mL solution MISCELLANEOUS ONCE Colt Macias - [MAR Hold due to Transfer] ipratropium-albuterol 3 mL nebulizer solution (DUONEB) 3 mL INHALATION q 4 H PRN Lakeshia Walsh - [MAR Hold due to Transfer] ipratropium 0.02 % 0.5 mg (ATROVENT) 0.5 mg INHALATION QID Alberto Renteria Decoy 0.5 mg at 04/02/19 1109 - [MAR Hold due to Transfer] perflutren lipid microspheres 1.1 mg/mL 1.3 mL injection (DEFINITY) 1.3 mL INTRAVENOUS DIRECTED PRN Shawna (Cabrera Marvin - [MAR Hold due to Transfer] aspirin 81 mg chewable tab(s) 81 mg ORAL DAILY Bill (Res) Garsia 81 mg at 04/02/19916 - [MAR Hold due to Transfer] metoprolol tartrate (short acting) 50 mg tab(s) (LOPRESSOR) 50 mg ORAL BID Bill (Res) Garsia 50 mg at 04/02/19916 - [MAR Hold due to Transfer] atorvastatin 40 mg tab(s) (LIPITOR) 40 mg ORAL AT BEDTIME Bill (Res) Garsia 40 mg at 04/01/192045 - [MAR Hold due to Transfer] latanoprost 0.005 % 1 Drop (XALATAN) 1 Drop BOTH EYES BID (0600/2099) Bill (Res) Garsia 1 Drop at 04/02/19916 - [MAR Hold due to Transfer] dextrose 40 % 15 g 15 g ORAL PRN Bill (Res) Garsia Or - [MAR Hold due to Transfer] glucagon 1 mg injection (GLUCAGEN) 1 mg INTRAMUSCULAR PRN Bill (Res) Garsia Or - [MAR Hold due to Transfer] dextrose 50 % 12.5 g injection 12.5 g INTRAVENOUS PRN Bill (Res) Garsia - [MAR Hold due to Transfer] insulin lispro pen (rapid acting) (HumaLOG KWIKPEN) SUBCUTANEOUS w MEALS Bill (Res) Garsia - [MAR Hold due to Transfer] heparin iv infusion (LOW DOSE ACS/NOMOGRAM) 25,000 units in NaCl 0.45% 250 mL PREMIX 0-3,000 Units/hr INTRAVENOUS CONTINUOUS Bill (Res) Garsia 16 mL/hr at 04/02/19 0650 1,600 Units/hr at 04/02/19 0650 And - [MAR Hold due to Transfer] heparin RATE CHANGE bolus 1,000-4,000 Units for subtherapeutic aptt results 1,000-4,000 Units INTRAVENOUS PRN Bill (Res) Garsia 3,200 Units at 03/31/19 0957 - [MAR Hold due to Transfer] brimonidine 0.2 % 1 Drop (ALPHAGAN) 1 Drop LEFT EYE BID Bill (Res) Garsia 1 Drop at 04/02/19 0917 - [MAR Hold due to Transfer] amiodarone 360 mg in D5W 200 mL (NEXTERONE) 0.5 mg/min INTRAVENOUS CONTINUOUS Bill (Res) Garsia 16.67 mL/hr at 04/02/19 1015 0.5 mg/min at 04/02/19 1015 - [MAR Hold due to Transfer] ALPRAZolam 0.5 mg tab(s) (XANAX) 0.5 mg ORAL HS PRN Bill (Res) Garsia 0.5 mg at 04/01/19 2204 Allergies: ALLERGIES No Known Allergies DOS EXAM: Adequate NPO Status: Yes Anesthetic Risks, Benefits, Alternatives, Personnel and Consent Discussed: Yes Patient agrees to proceed: Yes Previous Anesthesia: No history of adverse event Airway Assessment: MP 3; Neck ROM: Full ROM without neurologic symptoms; Airway Evaluation: Thick neck Symptoms of Sleep Apnea: Hypertension, BMI > 35, Age over 50 (68 year old), Neck circumference > 15.75 inches and Male gender Dentition: Multiple missing teeth implant right upper medial incisor Additional Physical Exam: Lungs: Patient health status unchanged since recent history and physical. See history and physical for exam findings. Cardiac: Patient health status unchanged since recent history and physical. See history and physical for exam findings. 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 (severe 3 vessel diesease per cardiology note, ?ostial Left main disease) - on amiodarone gtt and heparin gtt HLD PVD Smoker NIDDM2 HTN Right ear deafness Left subcalvian stenosis with steam phenomenon noted in 2005 GERD Took ASA and metoprolol today (04/02) Recent Lab Values WBC 10.79 04/02/2019 HGB 14.8 04/02/2019 Hematocrit 43.4 04/02/2019 Platelet Count 265 04/02/2019 INR 1.04 03/25/2019 APTT 67.2 04/02/2019 Sodium 136 04/02/2019 Potassium 3.8 04/02/2019 Chloride 105 04/02/2019 CO2 23 04/02/2019 BUN 20 04/02/2019 Creatinine 1.09 04/02/2019 Glucose 111 04/02/2019 Calcium 9.2 04/02/2019 Magnesium 1.8 03/25/2019 Phosphorus 2.0 03/25/2019 GLUCOSE METER 125 04/02/2019 Antibody Screen Date Value Ref Range Status 04/01/2019 NEGATIVE NEGATIVE Final Chronic Beta Svitlana medication administered within 24 hours: Yes I have interviewed and examined the patient. I have reviewed the medical record and/or the pre-anesthesia evaluation, pertinent labs, and test results. Significant changes in the patient's condition since the History and Physical, not otherwise documented in primary service progress notes: No This contains updated information obtained within 48 hours of Surgery/Procedure. SIGNATURE: Juan Chapman MD PATIENT NAME: Rigo Diaz DATE: April 02, 2019 TIME: 9:16 AM CSN: [id number] TTE (03/30/2019) CONCLUSIONS: - Technically difficult exam due to body habitus. - Exam indication: Evaluation of ventricular function following ACS - The left ventricle is normal in size. There is mild left ventricular hypertrophy. Left ventricular systolic function is normal. EF = 60 ? 5% (2D biplane) Grade II left ventricular diastolic dysfunction. - The right ventricle is normal in size. Right ventricular systolicfunction is normal. - No significant valve disease: Mild , Trivial MR, Trivial TR, Trivial PI - The visualized aorta is borderline dilated with a maximal dimension of 3.9 cm. - The patient has not had a prior CC echocardiographic exam for comparison. Normal [facility] CONSULTon 04-02-2019 CONSULT HNO ID: [id number] Author: Gabriela Ortiz Service: Critical Care Author Type: Physician Type: Consults Filed: 04/03/2019 3:43 AM Note Text: MICU - PROGRESS NOTE SERVICE DATE: 04/02/2019 Admission Date: 03/25/2019 AGE: [age] year old LOS: 8 days REASON FOR ICU ADMISSION: s/p CABG x 3v, anticipated post-op hypotension and post-op respiratory insufficiency Subjective 68 yo M w/ hx sig for CAD s/p inferior HAYDEN x2 (10/2017), HTN, HLD, DM2, active tobacco use, left subclavian artery stenosis, GERD and severe COPD with FEV1 44% predicted on spirometry 03/26/19, initially presented on 03/23/19 to [facility] via EMS with diaphoresis, palpitations, and dizziness/lightheaded ness w/ associated syncopal event and found to be in Vtach. He received one shock and and was bolused with amiodarone at which point he returned to R. Subsequent cath (03/25/19) showed multivessel CAD that required CABG-->CCAG for CTS assessment. Was seen by pulmonary (Dr. Vergara on 03/30/19 for pre-operative evaluation. Now pt is s/p CABG x 3v on 04/02/19. PROCEDURES AND ANESTHESIA: Procedure(s) and Anesthesia Type: * BYPASS GRAFT ARTERY CORONARY ON-PUMP THREE CORONARY VENOUS GRAFTS - General Great Saphenous Vein, Left , Percutaneous endoscopic Internal Thoracic Artery, Left , Open CABG x 3 (lsvg-lad; svg-om; svg-pda, evh); ? ANESTHESIA: General ? BRIEF FINDINGS: normal LVF pre and post dissection of HUIZAR graft - replaced with svg graft excellent graft flows Data/Meds/Notes reviewed in chart. Discussed with RN. ? Currently pt is: S/p protamine for ~350cc blood loss via chest tube in s/o PTT 119.5 and elevated ACT. On phenylephrine, insulin gtt, and precedex No further active bleeding 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.9) rt eye Objective VITAL SIGNS (last 24hrs min/max): Temp Av.7 ?C (98 ?F) Min: 36.6 ?C (97.9 ?F) Max: 36.7 ?C (98.1 ?F) Pulse Av.8 Min: 63 Max: 86 No data recorded Cuff BP Min: 115/54 Max: 159/72 Pain Level: 0 Vital signs reviewed. BP 115/54 Pulse 80 Temp (Src) 97.9 (Temporal) Resp 17 Ht 6' 4 (1.93m) Wt 224 lb 3.2 oz (101.7kg) SpO2 98% BMI 27.30 kg/(m2). O2 Therapy: Ventilator, %FIO2: 40 Temp (24hrs), Av.7 ?C (98 ?F), Min:36.6 ?C (97.9 ?F), Max:36.7 ?C (98.1 ?F) NET FLUID BALANCE Intake/Output Summary (Last 24 hours) at 04/02/20192039 Last data filed at 04/02/20191999 Gross per 24 hour Intake ? Output 645 ml Net -645 ml MEDICATIONS Current Facility-Administered Medications Medication Dose Route Frequency - insulin regular iv infusion 100 units in NaCl 0.9% 100 mL - AK CARD SURG NOMOGRAM 0-12 Units/hr INTRAVENOUS CONTINUOUS - insulin regular human iv bolus 10 Units 10 Units INTRAVENOUS PRN - dextrose 50 % 12.5 g injection 12.5 g INTRAVENOUS PRN - potassium chloride iv piggyback 20 mEq/100 mL 20 mEq INTRAVENOUS PRN - magnesium sulfate in water 2 g in sterile water 50 ml 2 g INTRAVENOUS PRN(NO DISPENSE) - acetaminophen 650 mg tab(s) (TYLENOL) 650 mg ORAL q 6 H PRN - NaCl 0.9% iv infusion 50 mL/hr INTRAVENOUS CONTINUOUS - NaCl 0.9% 250 mL iv bolus 250 mL INTRAVENOUS Post-Op PRN - albuterol 2.5 mg /3 mL (0.083 %) 2.5 mg (PROVENTIL) 2.5 mg INHALATION q 2 H PRN - PHENYLephrine iv infusion 10 mg in NaCl 0.9% 250 mL (NIRANJAN-SYNEPHRINE) 0-100 mcg/min INTRAVENOUS CONTINUOUS - ceFAZolin iv piggyback 2 g in D5W (iso-osmotic) 100 mL (ANCEF) 2 g INTRAVENOUS q 6 HR - ondansetron (PF) 4 mg injection (ZOFRAN) 4 mg INTRAVENOUS q 6 H PRN - oxyCODONE-acetaminoph en 5-325 mg 1-2 tablet (PERCOCET) 1-2 tablet ORAL q 4 H PRN - morphine 2-4 mg injection 2-4 mg INTRAVENOUS q 1 H PRN - midazolam (PF) 2 mg injection (VERSED) 2 mg INTRAVENOUS q 6 H PRN - dexmedetomidine 400 mcg in NaCl 0.9% 100 mL (PRECEDEX) 0.2-0.7 mcg/kg/hr INTRAVENOUS CONTINUOUS Respiratory/Nursing Documentation: O2 Therapy: Ventilator (04/02/192027) Lines, Drains, and Airways Line Peripheral 03/30/19 1750 Right Forearm 20 Gauge 3 days Peripheral 03/31/19 0830 Right Forearm 20 Gauge 2 days Arterial Line 04/02/19 Arterial Line Right Radial less than 1 day Central Line Triple Lumen 04/02/19 Non-tunneled Right Neck less than 1 day Peripheral 04/02/19 Right Hand 18 Gauge less than 1 day Drain Chest Tube 04/02/19 Mediastinal 32 Fr less than 1 day Chest Tube 04/02/19 Pleural 28 Fr less than 1 day Indwelling Urinary Catheter 04/02/19 Temperature Monitoring 16 Fr less than 1 day Airway Airway Endotracheal Tube 04/02/19 less than 1 day PHYSICAL EXAMINATION: Vitals-reviewed and noted above. Lines/Drains in place as noted above. Intubated, sedated RIJ w/ mild blood at dressing site Sternotomy incision noted No wheezes, mildly diminished at bases RRR NT/ND BS+, soft Warm extremities No edema DATA: All data reviewed, including, but not limited to, data noted below. All diagnostic tests, including labs/specimens and imaging, were personally reviewed by me with my ellis findings noted above and/or below. 04/02/[address], L chest tube and mediastinal draine L sided atelectasis Impression/Recommenda tions Critical Care Documentation: The patient has the following organ/system impairment(s): 68 yo M with hx sig for: # CAD s/p inferior HAYDEN x2 (10/2017)-was on Brillnta (now stopped) # HTN # HLD # DM2 # Active tobacco use # left subclavian artery stenosis # GERD # Severe COPD with FEV1 44% predicted on spirometry 03/26/19 # Glaucoma Admitted on 03/25/19 from [facility] after presenting there w/ syncopal event and Vtach requiring defibrillation x 1 and amiodarone gtt w/ subsequent Cath showing multi-vessel CAD-->[facility] on 03/25 for CABG evaluation; Admitted to CVICU service for further evaluation; now also critically ill w/ the following: # s/p CABG x 3v on 04/02/19 # Anticipated post-op hypotension # Anticipated post-op respiratory insufficiency # COPD not in acute exacerbation # Recent Vtach 03/25 x defibrillation x 1 on amiodarone # LUE phlebitis in s/o amiodarone infiltration # New incidental subcentimeter R lung nodules (4mm RUL and 9mm microlobulated RLL) w/o any associated LAD # Calcified RLL 7mm nodule likely granulomatous change PLAN: - Ventilatory support with weaning; anticipate extubation soon - Vasopressor support - IV fluids to wean vasopressors - Monitor UOP - Wean sedation - Bronchodilators - Wean FiO2 to goal sat >88-92% - Replace electrolytes - Daily BMP/CBC - Warming - Drain management per thoracic surgery - F/U repeat PTT and monitor Hb - BG control per endocrine - Will need eventual F/U CT chest NC in 3 months as outpatient for nodule F/U Code Status: Full This patient has a high probability of sudden, clinically significant deterioration, which requires the highest level of physician preparedness to intervene urgently. I managed/supervised life or organ supporting interventions that required frequent physician assessment. I devoted my full attention to the direct care of this patient for the amount of time indicated below. Time I spent with family or surrogate(s) is included only if the patient was incapable of providing the necessary information or participating in medical decision making. Time devoted to teaching and to any procedures I billed separately is not included. Discussed with staff. Patient and/or family updated: Yes Time spent providing critical care services: 32 minutes, excluding procedures. SIGNATURE: Gabriela Ortiz MD [facility] DATE of SERVICE: April 02, 2019 TIME of SERVICE: 8:40 PM [facility] ECG COMPLETEon 04-02-2019 ECG COMPLETE NAME : RIGO DIAZ PID : [id number] : 1950 Gender : Male Race : ORD : [id number] Procedure Date : Apr 02 2019 20:20:02 Edit Date : Apr 03 2019 19:14:24 Diagnosis:NORMAL SINUS RHYTHM LEFT AXIS DEVIATION RIGHT BUNDLE BRANCH BLOCK ABNORMAL ECG NO PREVIOUS ECGS AVAILABLE Confirmed by DO MISHRA JEFF ([id number]) on 04/03/2019 7:14:22 PM Ventricular Rate : 72 BPM Atrial Rate : 72 BPM P-R Interval : 182 ms QRS Duration : 152 ms Q-T Interval : 458 ms QTC Calculation(Bazett) : 501 ms P Delta : 64 degrees R Delta : -49 degrees T Delta : 33 degrees Test Reason : Post-OP Location : [address] [place] [address] Overread By : DO MISHRA JEFF Edited By : DO MISHRA JEFF Referred By : , Acquired by : SHWETHA SCHOFIELD [facility] PROGRESSon 04-02-2019 PROGRESS HNO ID: [id number] Author: Mindy Barry Service: Hospital Medicine Author Type: Physician Type: Progress Notes Filed: 04/02/2019 11:52 AM Note Text: DEPARTMENT OF HOSPITAL MEDICINE PROGRESS NOTE SERVICE DATE: 04/02/2019 SERVICE TIME: 11:50 AM Hospital Medicine/Primary Attending: Mindy Barry DO NIGHT AND WEEKEND COVERAGE: After 7pm, please call cross cover pager #[phone] Subjective INTERVAL HPI: Patient seen and examined. Feeling well. No chest pain. No complaints. Patient and very upset because apparently CT surgery knew his surgery was being bumped But no one told them and came very early. MEDICATIONS: Reviewed Objective PHYSICAL EXAM: BP 139/62 Pulse 64 Temp (Src) 97.9 (Oral) Resp 18 Ht 6' 4 (1.93m) Wt 233 lb 7.5 oz (105.9kg) SpO2 96% BMI 28.43 kg/(m2). O2 Therapy: Room Air Physical Exam Performed Constitutional - Vitals as above, not in acute distress Resp - Clear to auscultate both sides, no wheezes, crackles or rales, no labored breathing CVS- RRR. 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 Need to be continued yes DATA: Diagnostic tests reviewed for today's visit: Most recent labs and imaging results. Assessment/Plan #Vtach-s/p shock x 1, remains on amio drip until CABG, cardiology following for management, also on heparin #CAD-multivessel disease and plan for CABG, on aspirin, beta svitlana, statin, hep drip as per cardiology #LUE phlebitis s/p amiodarone infiltration-patient pain free with improving erythema, continue ice and elevation of extremity, u/s if not improvement or worsening #HTN-follow BP closely with uptitration of medication as needed #HLD-statin #hx glaucoma-continue drops #tobacco abuse-off x 7 days now #subclavian stenosis-vascular follow up #pulm [id number] follow up, a per pulmonary #obstructive lung disease-continue atrovent as per pulmonary #DM 2-accuchecks and SSI will need d/c on metformin-patient refusing at this times, states he can get his A1c down and will follow Up with his PCP after surgery Further workup for CABG per CT surgery Awaiting OR this afternoon as per CT surg Medication and Non-Pharmacologic VTE Prophylaxis/Anticoagu lants Anticoagulant AND Antiplatelet Medications (From admission, onward) Start Dose Route Frequency Ordered Stop 04/02/19 1330 heparin 3,000 Units in NaCl 0.9% 500 mL irrigation 3,000 Units IRRIGATION ONCE 04/01/19 1242 04/03/19 0129 03/26/19 0930 aspirin 81 mg chewable tab(s) 81 mg ORAL DAILY 03/26/19 0900 -- 03/25/19 1930 heparin iv infusion (LOW DOSE ACS/NOMOGRAM) 25,000 units in NaCl 0.45% 250 mL PREMIX (Heparin Infusion + Rate Change Bolus) 0-30 mL/hr 0-3,000 Units/hr INTRAVENOUS CONTINUOUS 03/25/191905 -- 03/25/191899 pneumatic compression stockings (md,oh) VTE Prophylaxis: VTE prophylaxis appropriate Disposition: per CTS Plan of care discussed with: Patient SIGNATURE: Mindy Barry DO PATIENT NAME: Rigo Diaz DATE: April 02, 2019 TIME: 11:50 AM PAGER/CONTACT #: [phone] [facility] CASE MANAGEMon 04-01-2019 CASE MANAGEM HNO ID: [id number] Author: Felicity DrakeRn) BIBI Fry Service: Care Management Author Type: Registered Nurse Type: Care Mgt Progress Note Filed: 04/01/2019 9:45 AM Note Text: CARE MANAGEMENT PROGRESS NOTE SERVICE DATE: 04/01/2019 SERVICE TIME: 9:43 AM LOS: 7 days Needs Prior to Discharge: Discharge Prescriptions;Home Care Order Notes reviewed. Plan for OR Tues. Tentative plan is for patient to return home with family following surgery. [facility] has accepted. SIGNATURE: Felicity Fry RN PATIENT NAME: Rigo Diaz DATE: April 01, 2019 TIME: 9:43 AM PAGER/CONTACT #: [phone] [facility] PROGRESSon 04-01-2019 PROGRESS HNO ID: [id number] Author: Mindy Barry Service: Hospital Medicine Author Type: Physician Type: Progress Notes Filed: 04/01/2019 9:56 AM Note Text: DEPARTMENT OF HOSPITAL MEDICINE PROGRESS NOTE SERVICE DATE: 04/01/2019 SERVICE TIME: 9:54 AM Hospital Medicine/Primary Attending: Mindy Barry DO NIGHT AND WEEKEND COVERAGE: After 7pm, please call cross cover pager #[phone] Subjective INTERVAL HPI: Patient seen and examined. Feeling well. No chest pain. No complaints. MEDICATIONS: Reviewed Objective PHYSICAL EXAM: BP 126/70 Pulse 76 Temp (Src) 97.5 (Oral) Resp 18 Ht 6' 4 (1.93m) Wt 233 lb 7.5 oz (105.9kg) SpO2 97% BMI 28.43 kg/(m2). O2 Therapy: Room Air Physical Exam Performed Constitutional - Vitals as above, not in acute distress Resp - Clear to auscultate both sides, no wheezes, crackles or rales, no labored breathing CVS- RRR. 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 Need to be continued yes DATA: Diagnostic tests reviewed for today's visit: Most recent labs and imaging results. Assessment/Plan #Vtach-s/p shock x 1, remains on amio drip until CABG, cardiology following for management, also on heparin #CAD-multivessel disease and plan for CABG, on aspirin, beta svitlana, statin, hep drip as per cardiology #LUE phlebitis s/p amiodarone infiltration-patient pain free with improving erythema, continue ice and elevation of extremity, consider u/s if no improvement #HTN-follow BP closely with uptitration of medication as needed #HLD-statin #hx glaucoma-continue drops #tobacco abuse-off x 7 days now #subclavian stenosis-vascular follow up #pulm [id number] follow up #obstructive lung disease-continue duonebs, pulm consult penidng #DM 2-accuchecks and SSI will need d/c on metformin-patient refusing at this times, states he can get his A1c down and will follow Up with his PCP after surgery Further workup for CABG per CT surgery Awaiting OR Tues am Medication and Non-Pharmacologic VTE Prophylaxis/Anticoagu lants Anticoagulant AND Antiplatelet Medications (From admission, onward) Start Dose Route Frequency Ordered Stop 03/26/19 0930 aspirin 81 mg chewable tab(s) 81 mg ORAL DAILY 03/26/19 0900 -- 03/25/19 193 heparin iv infusion (LOW DOSE ACS/NOMOGRAM) 25,000 units in NaCl 0.45% 250 mL PREMIX (Heparin Infusion + Rate Change Bolus) 0-30 mL/hr 0-3,000 Units/hr INTRAVENOUS CONTINUOUS 03/25/19 190 -- 03/25/19 1900 pneumatic compression stockings (fl,oh) VTE Prophylaxis: VTE prophylaxis appropriate Disposition: per CTS Plan of care discussed with: Patient SIGNATURE: Mindy Barry DO PATIENT NAME: Rigo Diaz DATE: April 01, 2019 TIME: 9:54 AM PAGER/CONTACT #: [phone] Normal [facility] PROGRESSon 03-31-2019 PROGRESS HNO ID: [id number] Author: Mindy Barry Service: Hospital Medicine Author Type: Physician Type: Progress Notes Filed: 03/31/2019 11:53 AM Note Text: DEPARTMENT OF HOSPITAL MEDICINE PROGRESS NOTE SERVICE DATE: 03/31/2019 SERVICE TIME: 11:52 AM Hospital Medicine/Primary Attending: Mindy Barry, NIGHT AND WEEKEND COVERAGE: After 7pm, please call cross cover pager #[phone] Subjective INTERVAL HPI: Patient seen and examined. Feeling well. No chest pain. No complaints. IV infiltrated overnight, improving per RN MEDICATIONS: Reviewed Objective PHYSICAL EXAM: BP 118/49 Pulse 63 Temp (Src) 98.2 (Oral) Resp 18 Ht 6' 4 (1.93m) Wt 233 lb 7.5 oz (105.9kg) SpO2 95% BMI 28.43 kg/(m2). O2 Therapy: Room Air Physical Exam Performed Constitutional - Vitals as above, not in acute distress Resp - Clear to auscultate both sides, no wheezes, crackles or rales, no labored breathing CVS- RRR. No murmur, gallop or rub, pulse 2+ GI - NTND, bowel sounds normally heard, no mass palpable HAND BRAILLE TRANSCRIBER- cranial nerves 2 to 12 grossly intact, no focal motor or sensory deficits noted, speech normal/ Psych- A ANDO x 3, mood normal Skin- Normal tugor, no ulcers or rashes Lines, Drains, and Airways Line Peripheral 03/30/19 1750 Right Forearm 20 Gauge less than 1 day Peripheral 03/31/19 0830 Right Forearm 20 Gauge less than 1 day Reviewed lines, drains, AND airways. Need to be continued yes DATA: Diagnostic tests reviewed for today's visit: Most recent labs and imaging results. Assessment/Plan #Vtach-s/p shock x 1, remains on amio drip until CABG, cardiology following for management, also on heparin #CAD-multivessel disease and plan for CABG, on aspirin, beta svitlana, statin, hep drip as per cardiology #HTN-follow BP closely with uptitration of medication as needed #HLD-statin #hx glaucoma-continue drops #tobacco abuse-off x 7 days now #subclavian stenosis-vascular follow up #pulm jgtiwg-agumyeyzwu-AY follow up #obstructive lung disease-continue duonebs, pulm consult penidng #DM 2-accuchecks and SSI will need d/c on metformin-patient refusing at this times, states he can get his A1c down and will follow Up with his PCP after surgery Further workup for CABG per CT surgery Awaiting OR Tues am Medication and Non-Pharmacologic VTE Prophylaxis/Anticoagu lants Anticoagulant AND Antiplatelet Medications (From admission, onward) Start Dose Route Frequency Ordered Stop 03/26/19 0930 aspirin 81 mg chewable tab(s) 81 mg ORAL DAILY 03/26/19 0900 -- 03/25/19 1930 heparin iv infusion (LOW DOSE ACS/NOMOGRAM) 25,000 units in NaCl 0.45% 250 mL PREMIX (Heparin Infusion + Rate Change Bolus) 0-30 mL/hr 0-3,000 Units/hr INTRAVENOUS CONTINUOUS 03/25/19 1906 -- 03/25/19 1900 pneumatic compression stockings (md,oh) VTE Prophylaxis: VTE prophylaxis appropriate Disposition: per CTS Plan of care discussed with: Patient SIGNATURE: Mindy Barry DO PATIENT NAME: Rigo Diaz DATE: March 31, 2019 TIME: 11:52 AM PAGER/CONTACT #: [phone] [facility] CONSULTon 03-30-2019 CONSULT HNO ID: [id number] Author: Lakeshia Walsh Service: Pulmonary Disease Author Type: Nurse Practitioner Type: Consults Filed: 03/30/2019 12:18 PM Note Text: Attestation signed by Alberot Vergara at 03/30/2019 2:55 PM I evaluated the patient and personally participated in the ellis components. I agree with the nurse practitioner findings and plan as documented and have discussed the case and management of the patient's care with the nurse practitioner 68 yo WM with no known history of lung disease admitted to CVICU from [place] after near-syncopal episode at home having VTach requiring defibrillation and started on IV Amiodarone. Found to have multivessel CADse by cath in [place] on 03/25 and transferred to [facility]. Scheduled for CABG with Dr. Macias next week. He denies any SOB rest or exertion and no recent chest pain. No wheezing or sputum. No respiratory limitations. Has been up to 1.5PPD smoker x 49 years but recently 10-14 cigarettes/day. No asbestos exposure history. Retired from [employer]. No alcohol use. No history of CANDY. PHYSICAL EXAM BP (!) 114/46 Pulse 66 Temp 36.5 ?C (97.7 ?F) (Temporal) Resp 20 Ht 193 cm (6' 4) Wt 105.9 kg (233 lb 7.5 oz) SpO2 97% BMI 28.42 kg/m? HEENT: Normocephalic, PERRLA, External ears normal, canals clear. , Nares normal, septum midline, no drainage or sinus tenderness. , Oropharynx grossly normal, trachea midline, no accessory muscle use, good dentition. Grade III airway. Neck: No jugulovenous distention, No carotid bruits, Carotid pulse normal contour, Supple Lungs: Coarse expiratory BSs with rare rhonchus. Heart: Normal S1 and S2; no rubs, murmurs, or gallops Abdomen: Abdomen soft, non-tender, BS normal, No masses or organomegaly Extremities: Extremities normal, no deformities, edema, clubbing or skin discoloration. Good capillary refill., No ulcers 03/[address]: EXAMINATION: CHEST CT WITHOUT CONTRAST CLINICAL HISTORY: Prior revascularization (either PTCA or CABG), Lung nodule(s) Technique: Spiral CT acquisition of the chest from the thoracic inlet to the upper abdomen without contrast. MQ: CTCWOR_4 CT Dose-Length Product: 282 mGy*cm CT Dose Reduction Employed: Automated exposure control(AEC) and iterative recon Comparison: CTA head and neck 03/26/2019 RESULT: Limitations: None. Lines, tubes, and devices: None. Lung parenchyma and pleura: There is a 4 mm solid nodule in the right upper lobe on series 3 image 58. There is a 9 mm microlobulated solid nodule in the superior segment of right lower lobe on image 62, with traction of the adjacent major fissure. Right lower lobe 7 mm calcified granuloma Mild centrilobular emphysema. Right lung base subsegmental atelectasis. No consolidation. No pleural effusion. Central airways are patent. Thoracic inlet, heart, and mediastinum: No lymphadenopathy in the axillary, mediastinal, or hilar regions. The thoracic aorta and main pulmonary artery are normal in caliber. The cardiac chambers are normal in size. Aortic and coronary artery atherosclerotic calcifications are noted. No pericardial effusion or thickening. Bones and soft tissues: Thoracic spondylosis. Sclerosis is the vertebral bodies is likely related to degenerative changes. Chest wall is unremarkable. Upper abdomen: No abnormality in the imaged upper abdomen. IMPRESSION: 1. New-found two subcm right lung nodules--4mm RUL and 9mm microlobulated RLL. No LAD. 2. Calcified 7mm RLL nodule likely granulomatous change. 3. Severe OLDse by spirometry with FEV-1 of 44%. 4. Recent acute VTach requiring defibrillation and now on Amiodarone. S/P KS in at [facility] and required two HAYDEN placements. Maintained since then on Brilinta--stopped. 5. Tobacco use disorder ongoing. PLAN: OK for cardiac surgery with mild risk of post-op pulmonary complications such as prolonged post-op mechanical ventilation, LRTI infection/pneumonia, atelectasis, or need for supplemental oxygen. Will start qid Atrovent by HHN Rx Follow up chest CT in 3 months without contrast. Discussed importance of smoking cessation. Alberto Vergara MD March 30, 2019 2:39 PM Pulmonary Consult Note SERVICE DATE: 03/30/2019 SERVICE TIME: 11:45 AM ? REASON FOR ADMISSION: Diaphoresis, Palpitations and Dizziness / Lightheadedness REASON FOR CONSULT: Active smoker. Poor FEV1. Lung Nodule. Pending CABG HISTORY OF PRESENT ILLNESS: This is a very pleasant 68 year old gentleman with a past medical history of CAD s/p stenting, HTN and active tobacco use who presented to [facility] on 03/23/19 with diaphoresis, palpitations, and dizziness / lightheadedness. The patient states that he initially was on the stairs from his basement when he collapsed. He was rushed to [facility] by EMS and found to be in V-tach. He received one shock and and was bolused with amiodarone at which point he returned to [facility]. Patient had a cath on Sunday 03/25 which revealed multivessel CAD. He was then transported to [facility] for CTS assessment. He currently is denying all complaints. We were consulted as he is scheduled for a CABG this up-coming Monday. A full review of systems was obtained and is outlined in detail below. REVIEW OF SYSTEMS: GENERAL: Negative for fevers, malaise, chills, sweats, lethargy, change in appetite or weight HEENT: Negative for headaches, hearing/vision changes, nasal bleeding, congestion or rhinorrhea NECK: Negative for lumps, goiter, pain and significant neck swelling NEURO: No history of headaches, syncope, paralysis, seizures or tremors RESPIRATORY: Negative for cough, hemoptysis, wheezing, dyspnea or shortness of breath CARDIOVASCULAR: Negative for chest pain, leg swelling, or palpitations GI: No nausea, vomiting, diarrhea, heartburn or reflux symptoms : No history of dysuria, frequency or incontinence SKIN: Negative for lesions, rash, and itching MUSCULOSKELETAL: Negative for joint pain or swelling, back pain or muscle pain ? ? 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 - PAST SURGICAL HISTORY OF 2002 herniorrhaphy left inguinal - PAST SURGICAL HISTORY OF 1963 elbow surgery bone chips - REMOVE CATARACT, INSERT LENS,EX 2010 OD - REMOVE CATARACT, INSERT LENS,EX OS 07/23/12 OS - TRABECULECTOMY WITH SCARRING 2011 OD PAST FAMILY HISTORY FAMILY HISTORY Problem Relation Age of Onset - Emphysema Father - No Ocular Disease Father - Coronary Artery Disease Mother - No Ocular Disease Mother - Macular Degen Other SOCIAL HISTORY Social History Tobacco Use - Smoking status: Current Every Day Smoker Packs/day: 1.00 Years: 50.00 Pack years: 50.00 Types: Cigarettes - Smokeless tobacco: Never Used Substance Use Topics - Alcohol use: No - Drug use: No Lives at home with and puppy. Retired from [employer]. On-going tobacco abuse, 1/2 to 1.5 PPD x 49 years. Currently smoking 1/2 PPD. Denies any alcohol or illicit drug use. No known past exposure to tuberculosis or asbestosis ALLERGIES ALLERGIES No Known Allergies HOME MEDICATIONS: Medications Prior to Admission: ALPHAGAN P 0.1 % drop USE 1 DROP IN THE LEFT EYE TWICE A DAY Disp: 15 mL Rfl: 0 latanoprost (XALATAN) 0.005 % ophthalmic solution USE 1 DROP IN THE LEFT EYE DAILY AT BEDTIME, DISCARD AFTER 42 DAYS Disp: 2.5 mL Rfl: 0 lisinopril 10 mg ORAL tablet Take 1 tablet by mouth once daily. Disp: Rfl: 0 simvastatin (ZOCOR) 40 mg ORAL tablet Take 1 tablet by mouth daily at bedtime. Disp: Rfl: 0 omega-3 fatty acids 1,000 mg ORAL Cap Take 1 capsule by mouth twice daily. Disp: Rfl: 0 METOPROLOL 50 MG TAB Take one(1) tablet two(2) times daily. Disp: 60 Rfl: 5 multivitamins w-minerals/lut(CENTRU M SILVER TAB) Take one(1) tablet daily. Disp: Rfl: 0 niacin(NIASPAN 500 MG TAB) Take one(1) tablet daily Disp: Rfl: 0 aspirin(ECOTRIN LOW STRENGTH 81 MG TAB) Take one(1) tablet daily. Disp: Rfl: 0 IBUPROFEN 200 MG TAB as necessary taking 1743-2847 mg daily Disp: Rfl: 0 HOSPITAL MEDICATIONS: Current Facility-Administered Medications Medication Dose Route Frequency Provider Last Rate Last Dose - perflutren lipid microspheres 1.1 mg/mL 1.3 mL injection (DEFINITY) 1.3 mL INTRAVENOUS DIRECTED PRN Shawna (Pa) Shavonne - mupirocin 2 % ointment (BACTROBAN) TOPICAL BID Bill (Res) Garsia - lisinopril 20 mg tab(s) (ZESTRIL, PRINIVIL) 20 mg ORAL DAILY Bill (Res) Garsia 20 mg at 03/30/19 0854 - ipratropium-albuterol 3 mL nebulizer solution (DUONEB) 3 mL INHALATION q 4 H while awake Bill (Res) Garsia 3 mL at 03/30/19 1033 - aspirin 81 mg chewable tab(s) 81 mg ORAL DAILY Bill (Res) Garsia 81 mg at 03/30/19 0854 - metoprolol tartrate (short acting) 50 mg tab(s) (LOPRESSOR) 50 mg ORAL BID Bill (Res) Garsia 50 mg at 03/30/19 0854 - atorvastatin 40 mg tab(s) (LIPITOR) 40 mg ORAL AT BEDTIME Bill (Res) Garsia 40 mg at 03/29/192035 - latanoprost 0.005 % 1 Drop (XALATAN) 1 Drop BOTH EYES BID (0600/2099) Bill (Res) Garsia 1 Drop at 03/30/19 0854 - dextrose 40 % 15 g 15 g ORAL PRN Bill (Res) Garsia Or - glucagon 1 mg injection (GLUCAGEN) 1 mg INTRAMUSCULAR PRN Bill (Res) Garsia Or - dextrose 50 % 12.5 g injection 12.5 g INTRAVENOUS PRN Bill (Res) Garsia - insulin lispro pen (rapid acting) (HumaLOG KWIKPEN) SUBCUTANEOUS w MEALS Bill (Res) Garsia - heparin iv infusion (LOW DOSE ACS/NOMOGRAM) 25,000 units in NaCl 0.45% 250 mL PREMIX 0-3,000 Units/hr INTRAVENOUS CONTINUOUS Bill (Res) Garsia 16 mL/hr at 03/30/19 0821 1,600 Units/hr at 03/30/19820 And - heparin RATE CHANGE bolus 1,000-4,000 Units for subtherapeutic aptt results 1,000-4,000 Units INTRAVENOUS PRN Bill (Res) Garsia 3,200 Units at 03/29/192148 - brimonidine 0.2 % 1 Drop (ALPHAGAN) 1 Drop LEFT EYE BID Bill (Res) Garsia 1 Drop at 03/30/19 0854 - amiodarone 360 mg in D5W 200 mL (NEXTERONE) 0.5 mg/min INTRAVENOUS CONTINUOUS Bill (Res) Garsia 16.67 mL/hr at 03/30/19 0050 0.5 mg/min at 03/30/19 0050 - ALPRAZolam 0.5 mg tab(s) (XANAX) 0.5 mg ORAL HS PRN Bill (Res) Garsia 0.5 mg at 03/29/192034 ? LABS BMP: Glucose (mg/dL) Date Value 03/30/2019 113 Potassium (mEq/L) Date Value 03/30/2019 3.8 Sodium (mEq/L) Date Value 03/30/2019 140 Chloride (mEq/L) Date Value 03/30/2019 106 CO2 (mEq/L) Date Value 03/30/2019 26 Creatinine (mg/dL) Date Value 03/30/2019 0.97 BUN (mg/dL) Date Value 03/30/2019 15 Anion Gap (no units) Date Value 03/30/2019 12 Calcium (mg/dL) Date Value 03/30/2019 9.1 CBC: HGB (g/dL) Date Value 03/30/2019 13.1 03/29/2019 13.4 03/28/2019 13.6 Hematocrit (%) Date Value 03/30/2019 38.0 03/29/2019 39.0 03/28/2019 39.1 WBC (thou/cmm) Date Value 03/30/2019 10.44 03/29/2019 10.33 03/28/2019 8.98 MICRO: MRSA - No MRSA detected RADIOLOGY FILMS: CXR 03/28/19: No acute radiographic abnormality. CT Chest 03/29/19: No CT evidence of acute abnormality. Right upper lobe 4 mm solid nodule and right lower lobe 9 mm solid nodule. CXR 03/25/19: No acute radiographic abnormality. Most recent PFTs 03/2019: FEV1: 44% FEV1/FVC: 68% No prior echocardiogram or PSG in [facility] or Care Everywhere ? VITALS: BP 126/69 Pulse 65 Temp 36.6 ?C (97.9 ?F) (Temporal Artery) Resp 20 Ht 193 cm (6' 4) Wt 105.9 kg (233 lb 7.5 oz) SpO2 97% BMI 28.42 kg/m? PHYSICAL EXAM: GENERAL: AAOx3, pleasant, resting in bed in NAD. Friend present at bedside. NEURO: CN II-XII intact, speech clear HEENT: NCAT, EOMI, no lymphadenopathy appreciated RESPIRATORY: CTAB A AND P. Respirations are even and unlabored at rest. No wheezing, accessory muscle use, pursed lip breathing or conversational dysnea. Patient is stable on room air. CARDIOVASCULAR: Normal S1S2, RRR. No murmur, rub, or gallop. No edema. GI: Soft, nondistended, nontender, bowel sounds present x4 EXTREMITIES: no clubbing or cyanosis. MAEx4 SKIN: warm, dry, intact, no rash ? ASSESSMENT AND PLAN: 1) Multivessel CAD - anticipate CABG early next week per [facility]. Currently on heparin drip, ASA, Statin, BB and STEVE-I. According to the [place] Respiratory Failure Index, the patient has a 10.1 pulmonary complication rate requiring mechanical ventilation greater than 48 hours, which is not prohibitive. Encourage pre-op and early post-op ambulation as well as incentive spirometry. 2) COPD (FEV1 44%) - Appears stable, not in acute exacerbation. Change aerosols to PRN for periods of shortness of breath. Recommend out-patient follow up with a anesthesia tech of his choice in [place]. 3) Tobacco Abuse - I personally spent 3-5?minutes counseling the patient regarding smoking cessation. Discussed risks of continued smoking on current health concerns. Barriers and motivations identified. Smoking cessation strategies, including pharmacological treatment reviewed. Patient states that he has decided to quit cold turkey and has not smoked in 1 week. 4) Incidentally found pulmonary nodules (4mm RUL AND 9mm RLL) - Etiology uncertain. Given extensive smoking history, recommend a follow up CT Chest in 3 months for on-going surveillance. The patient wishes to follow up with a anesthesia tech in [place]. 5) Multiple Medical Problems - Per Primary Team 6) Full Code *Given that the patient remains stable from a pulmonary standpoint, we will follow peripherally until the post-operative period. Please call with any questions or concerns or if the patient worsens in any way. SIGNATURE: Lakeshia Walsh APRN.EMBLEM CUTTER PATIENT NAME: Rigo Diaz DATE: March 30, 2019 TIME: 11:45 AM PAGER/CONTACT #: [phone] ? Normal [facility] PROGRESSon 03-30-2019 PROGRESS HNO ID: [id number] Author: Mindy Barry Service: Hospital Medicine Author Type: Physician Type: Progress Notes Filed: 03/30/2019 12:01 PM Note Text: DEPARTMENT OF HOSPITAL MEDICINE PROGRESS NOTE SERVICE DATE: 03/30/2019 SERVICE TIME: 11:58 AM Hospital Medicine/Primary Attending: Mindy Barry, DO NIGHT AND WEEKEND COVERAGE: After 7pm, please call cross cover pager #[phone] Subjective INTERVAL HPI: Patient seen and examined. Feeling well. No chest pain. No complaints MEDICATIONS: Reviewed Objective PHYSICAL EXAM: BP 114/46 Pulse 66 Temp (Src) 97.7 (Temporal) Resp 20 Ht 6' 4 (1.93m) Wt 233 lb 7.5 oz (105.9kg) SpO2 97% BMI 28.43 kg/(m2). O2 Therapy: Room Air Physical Exam Performed Constitutional - Vitals as above, not in acute distress Resp - Clear to auscultate both sides, no wheezes, crackles or rales, no labored breathing CVS- RRR. No murmur, gallop or rub, pulse 2+ GI - NTND, bowel sounds normally heard, no mass palpable HAND BRAILLE TRANSCRIBER- cranial nerves 2 to 12 grossly intact, no focal motor or sensory deficits noted, speech normal/ Psych- A ANDO x 3, mood normal Skin- Normal tugor, no ulcers or rashes Lines, Drains, and Airways Line Peripheral 03/25/19 1900 Short Left Forearm 20 Gauge 4 days Peripheral 03/27/19 0900 Assessment Hand 20 Gauge 3 days Reviewed lines, drains, AND airways. Need to be continued yes DATA: Diagnostic tests reviewed for today's visit: Most recent labs and imaging results. Assessment/Plan #Vtach-s/p shock x 1, remains on amio drip until CABG, cardiology following #CAD-multivessel disease and plan for CABG, on aspirin, beta svitlana, statin, hep drip #HTN-follow BP closely with uptitration of medication as needed #HLD-statin #hx glaucoma-continue drops #tobacco abuse-off x 7 days now #subclavian stenosis-vascular follow up #pulm [id number] follow up #obstructive lung disease-continue duonebs, pulm consult penidng #DM 2-accuchecks and SSI will need d/c on metformin Further workup for CABG per CT surgery Medication and Non-Pharmacologic VTE Prophylaxis/Anticoagu lants Anticoagulant AND Antiplatelet Medications (From admission, onward) Start Dose Route Frequency Ordered Stop 03/26/19 0930 aspirin 81 mg chewable tab(s) 81 mg ORAL DAILY 03/26/19 0900 -- 03/25/19 1930 heparin iv infusion (LOW DOSE ACS/NOMOGRAM) 25,000 units in NaCl 0.45% 250 mL PREMIX (Heparin Infusion + Rate Change Bolus) 0-30 mL/hr 0-3,000 Units/hr INTRAVENOUS CONTINUOUS 03/25/19 1906 -- 03/25/19 1900 pneumatic compression stockings (md,oh) VTE Prophylaxis: VTE prophylaxis appropriate Disposition: Home Plan of care discussed with: Patient SIGNATURE: Mindy Barry DO PATIENT NAME: Rigo Diaz DATE: March 30, 2019 TIME: 11:58 AM PAGER/CONTACT #: [phone] [phone] Normal [facility] PROGRESS HNO ID: [id number] Author: Charo Pa) MIGUELITO Farrell Service: Cardiovascular Disease Author Type: Nurse Practitioner Type: Progress Notes Filed: 03/30/2019 11:19 AM Note Text: PROGRESS NOTE CARDIOLOGY SERVICE SERVICE DATE: 03/30/2019 SERVICE TIME: 11:13 AM Subjective INTERIM HISTORY: HPI COPIED FORWARD AND UPDATED WHERE NECESSARY Mr. Diaz is a 68-year-old gentleman with a past medical history significant for coronary artery disease remote [place] with stenting, hypertension, hyperlipidemia, left subclavian artery stenosis, GERD. ? He presented to [facility] with palpitations dizziness and a syncopal event. He was found by EMS to be in [place] received a defibrillation was started on IV amiodarone sinus rhythm was restored and has been maintained. He did undergo cardiac catheterization which identified multivessel coronary disease and he was transferred to [facility] for CT surgery consult ? Was admitted to the intensive care unit seen in consultation by Dr. Roalnd continued with amiodarone drip as well as IV heparin drip. Troponin peaked at 0.099 he's had no complaints of chest discomfort. He had been on Brilinta prior to his cardiac catheterization therefore he needs a washout, Prior to undergoing coronary artery bypass grafting ? In regards to the ventricular tachycardia this is felt to be ischemic in nature he will continue with the IV amiodarone and heparin until surgery. is recommended that EP evaluate post surgery This morning he denies any complaints of chest pain, palpitations, tach palpitations syncope nor near syncope. CARDIAC STATUS: Tele Sr HR 70bpm No CP No SOB No dizziness No Palpitations No HERON Objective PHYSICAL EXAM: Body mass index is 28.42 kg/m?. O2 Therapy: Room Air No data recorded Patient Vitals for the past 24 hrs: BP Temp Temp src Pulse Resp SpO2 03/30/19 1030 ? ? ? 65 20 97 % 03/30/19 0817 126/69 36.6 ?C (97.9 ?F) Temporal Art 74 18 94 % 03/30/19 0700 ? ? ? 66 20 99 % 03/30/19 0253 120/53 36.9 ?C (98.4 ?F) Oral 68 16 95 % 03/30/19 0000 144/62 37 ?C (98.6 ?F) Oral 65 18 92 % 03/29/19 2029 141/71 36.6 ?C (97.9 ?F) Oral 78 16 95 % 03/29/19 1919 ? ? ? 77 18 96 % 03/29/19 1908 148/62 ? ? 68 17 94 % 03/29/19 1607 ? ? ? 68 18 94 % 03/29/19 1543 149/64 36.7 ?C (98.1 ?F) Oral 62 18 92 % 03/29/19 1214 ? ? ? 68 18 97 % Pleasant, comfortable, not in acute distress. Awake, alert, oriented times 3. Moves all extremities. SKIN: No rash or lumps. HEENT: Normocephalic, face symmetrical. LUNGS: Clear to auscultation bilaterally. CARDIAC: RRR S1 S2 ABDOMEN: Soft, nontender, bowel sounds present. EXTREMITIES: No edema. PULSES: Peripheral pulses present. MEDICATIONS: Current Facility-Administered Medications Medication Dose Route Frequency - atorvastatin 40 mg tab(s) (LIPITOR) 40 mg ORAL AT BEDTIME - latanoprost 0.005 % 1 Drop (XALATAN) 1 Drop BOTH EYES BID (0600/2100) - dextrose 40 % 15 g 15 g ORAL PRN Or - glucagon 1 mg injection (GLUCAGEN) 1 mg INTRAMUSCULAR PRN Or - dextrose 50 % 12.5 g injection 12.5 g INTRAVENOUS PRN - insulin lispro pen (rapid acting) (HumaLOG KWIKPEN) SUBCUTANEOUS w MEALS - heparin iv infusion (LOW DOSE ACS/NOMOGRAM) 25,000 units in NaCl 0.45% 250 mL PREMIX 0-3,000 Units/hr INTRAVENOUS CONTINUOUS And - heparin RATE CHANGE bolus 1,000-4,000 Units for subtherapeutic aptt results 1,000-4,000 Units INTRAVENOUS PRN - brimonidine 0.2 % 1 Drop (ALPHAGAN) 1 Drop LEFT EYE BID - amiodarone 360 mg in D5W 200 mL (NEXTERONE) 0.5 mg/min INTRAVENOUS CONTINUOUS - ALPRAZolam 0.5 mg tab(s) (XANAX) 0.5 mg ORAL HS PRN - aspirin 81 mg chewable tab(s) 81 mg ORAL DAILY - metoprolol tartrate (short acting) 50 mg tab(s) (LOPRESSOR) 50 mg ORAL BID - mupirocin 2 % ointment (BACTROBAN) TOPICAL BID - lisinopril 20 mg tab(s) (ZESTRIL, PRINIVIL) 20 mg ORAL DAILY - ipratropium-albuterol 3 mL nebulizer solution (DUONEB) 3 mL INHALATION q 4 H while awake - perflutren lipid microspheres 1.1 mg/mL 1.3 mL injection (DEFINITY) 1.3 mL INTRAVENOUS DIRECTED PRN DATA: Diagnostic tests reviewed for today's visit: Most recent labs and imaging results. Past 72 Hour Labs: Recent Labs 03/30/19 0903/30/19 0303 WBC -- 10.44* RBC -- 3.83* HB -- 13.1* HCT -- 38.0* MCV -- 99.2* MCH -- 34.2* MCHC -- 34.5 PLT -- 225 MPV -- 10.3 GLUC -- 113* BUN -- 15 CREAT -- 0.97 NA -- 140 K -- 3.8 CHLOR -- 106 CO2 -- 26 TPROT -- 6.0* ALB -- 3.1* CA -- 9.1 ALKPHOS -- 60 TBILI -- 0.4 AST -- 47* ALT -- 71 APTT 54.7* 60.5* Last Lab Drawn: Triglyceride 183 03/28/2019 HDL Cholesterol 36 03/28/2019 LDL Calculated 13 03/28/2019 Cholesterol, Total 86 03/28/2019 Assessment/Plan Active Problems: 1. Ventricular tachycardia-thought to be ischemic in nature continue IV amiodarone until coronary artery bypass grafting this was discussed with Dr. Roland. He will continue beta svitlana therapy. No further sustained or nonsustained runs of ventricular tachycardia noted on telemetry Recommended EP eval post surgery 2. Coronary artery disease-troponin peaked at 0.099 may be demand in the setting of ventricular tachycardia requiring defibrillation. Cardiac catheter identified multivessel coronary disease coronary artery bypass grafting is planned for Monday of next week Continue aspirin beta svitlana statin and IV heparin therapy 3. Hypertension-blood pressure is acceptable 4. Hyperlipidemia-he remains on statin therapy 5. Discharge plan-home after acute stay with follow-up with Dr. Torres in [place] [facility] will follow when necessary Please call with any questions Charo Farrell APRN.CNP Medication and Non-Pharmacologic VTE Prophylaxis/Anticoagu lants Anticoagulant AND Antiplatelet Medications (From admission, onward) Start Dose Route Frequency Ordered Stop 03/26/19 0930 aspirin 81 mg chewable tab(s) 81 mg ORAL DAILY 03/26/19 0900 -- 03/25/19 1930 heparin iv infusion (LOW DOSE ACS/NOMOGRAM) 25,000 units in NaCl 0.45% 250 mL PREMIX (Heparin Infusion + Rate Change Bolus) 0-30 mL/hr 0-3,000 Units/hr INTRAVENOUS CONTINUOUS 03/25/19 1906 -- @BASSEM RIZVI([id number])@ SIGNATURE: Charo Farrell APRN.CNP PATIENT NAME: Rigo Diaz DATE: March 30, 2019 TIME: 11:13 AM PAGER/CONTACT #: [phone] [facility] PROGRESSon 03-29-2019 PROGRESS HNO ID: [id number] Author: Mindy Barry Service: Hospital Medicine Author Type: Physician Type: Progress Notes Filed: 03/29/2019 4:41 PM Note Text: DEPARTMENT OF HOSPITAL MEDICINE PROGRESS NOTE SERVICE DATE: 03/29/2019 SERVICE TIME: 3:52 PM Hospital Medicine/Primary Attending: Mindy Barry, DO NIGHT AND WEEKEND COVERAGE: After 7pm, please call cross cover pager #[phone] Subjective INTERVAL HPI: Patient seen and examined. No acute events overnight. Out of ICU after stay for vtach on amio, multivessel diseaae and awaiting cabg MEDICATIONS: Reviewed Objective PHYSICAL EXAM: BP 149/64 Pulse 62 Temp (Src) 98.1 (Oral) Resp 18 Ht 6' 4 (1.93m) Wt 233 lb 7.5 oz (105.9kg) SpO2 92% BMI 28.43 kg/(m2). O2 Therapy: Room Air Physical Exam Performed Constitutional - Vitals as above, not in acute distress Resp - Clear to auscultate both sides, no wheezes, crackles or rales, no labored breathing CVS- RRR. 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 Need to be continued yes DATA: Diagnostic tests reviewed for today's visit: Most recent labs and imaging results. Assessment/Plan #Vtach-s/p shock x 1, remains on amio drip until CABG, cardiology following #CAD-multivessel disease and plan for CABG, on aspirin, beta svitlana, statin, hep drip #HTN-follow BP closely with uptitration of medication as needed #HLD-statin #hx glaucoma-continue drops #tobacco abuse #subclavian stenosis-vascular follow up #pulm [id number] follow up #DM 2-accuchecks and SSI will need d/c on metformin Further workup for CABG per CT surgery Medication and Non-Pharmacologic VTE Prophylaxis/Anticoagu lants Anticoagulant AND Antiplatelet Medications (From admission, onward) Start Dose Route Frequency Ordered Stop 03/26/19 0930 aspirin 81 mg chewable tab(s) 81 mg ORAL DAILY 03/26/19 0900 -- 03/25/19 1930 heparin iv infusion (LOW DOSE ACS/NOMOGRAM) 25,000 units in NaCl 0.45% 250 mL PREMIX (Heparin Infusion + Rate Change Bolus) 0-30 mL/hr 0-3,000 Units/hr INTRAVENOUS CONTINUOUS 03/25/191905 -- 03/25/191899 pneumatic compression stockings (md,ut) VTE Prophylaxis: VTE prophylaxis appropriate Disposition: Home Plan of care discussed with: Patient SIGNATURE: Mindy Barry DO PATIENT NAME: Rigo Diaz DATE: March 29, 2019 TIME: 3:52 PM PAGER/CONTACT #: [phone] [phone] Normal [facility] PROGRESS HNO ID: [id number] Author: Charo Pa) MIGUELITO Farrell Service: Cardiovascular Disease Author Type: Nurse Practitioner Type: Progress Notes Filed: 03/29/2019 1:13 PM Note Text: PROGRESS NOTE CARDIOLOGY SERVICE SERVICE DATE: 03/29/2019 SERVICE TIME: 1:03 PM Subjective INTERIM HISTORY: Mr. Diaz is a 68-year-old gentleman with a past medical history significant for coronary artery disease remote [place] with stenting, hypertension, hyperlipidemia, left subclavian artery sternal doses, GERD. He presented to [facility] with palpitations dizziness and a syncopal event. He was found by EMS to be in [place] received a defibrillation was started on IV amiodarone sinus rhythm was restored and has been maintained. He did undergo cardiac catheterization which identified multivessel coronary disease and he was transferred to [facility] for CT surgery consult Was admitted to the intensive care unit seen in consultation by Dr. Roland continued with amiodarone drip as well as IV heparin drip. Troponin peaked at 0.099 he's had no complaints of chest discomfort. He had been on Brilinta prior to his cardiac catheterization therefore he needs a washout, Prior to undergoing coronary artery bypass grafting In regards to the ventricular tachycardia this is felt to be ischemic in nature he will continue with the IV amiodarone and heparin until surgery. is recommended that EP evaluate post surgery He is seen today sitting up at the bedside offering no complaints of chest pain, palpitations, tach palpitations syncope nor near syncope CARDIAC STATUS: Tele SR HR 50-80bpm No CP No SOB No dizziness No lightheadedness No HERON Objective PHYSICAL EXAM: Body mass index is 28.42 kg/m?. O2 Therapy: Room Air No data recorded Patient Vitals for the past 24 hrs: BP Temp Temp src Pulse Resp SpO2 03/29/19 1214 ? ? ? 68 18 97 % 03/29/19 1003 136/66 36.5 ?C (97.7 ?F) Oral 69 20 97 % 03/29/19 0739 ? ? ? 72 18 95 % 03/29/19 0349 128/62 36.6 ?C (97.9 ?F) Oral 62 18 95 % 03/28/19 2329 122/52 36.8 ?C (98.2 ?F) Axillary (!) 59 20 95 % 03/28/192011 150/62 36.7 ?C (98.1 ?F) Axillary 69 20 100 % 03/28/19 2009 ? ? ? 68 20 96 % 03/28/19 1521 ? ? ? 63 20 98 % 03/28/19 1519 ? ? Oral ? ? ? 03/28/19 1434 130/61 36.5 ?C (97.7 ?F) Oral 64 22 98 % 03/28/19 1400 ? ? ? 62 26 99 % 03/28/19 1335 152/80 ? ? (!) 55 25 99 % 03/28/19 1330 107/79 ? ? (!) 59 22 100 % Pleasant, comfortable, not in acute distress. Awake, alert, oriented times 3. Moves all extremities. SKIN: No rash or lumps. HEENT: Normocephalic, face symmetrical. LUNGS: Clear to auscultation bilaterally. CARDIAC: RRR S1 S2 ABDOMEN: Soft, nontender, bowel sounds present. EXTREMITIES: No edema. PULSES: Peripheral pulses present. MEDICATIONS: Current Facility-Administered Medications Medication Dose Route Frequency - atorvastatin 40 mg tab(s) (LIPITOR) 40 mg ORAL AT BEDTIME - latanoprost 0.005 % 1 Drop (XALATAN) 1 Drop BOTH EYES BID (0600/2100) - dextrose 40 % 15 g 15 g ORAL PRN Or - glucagon 1 mg injection (GLUCAGEN) 1 mg INTRAMUSCULAR PRN Or - dextrose 50 % 12.5 g injection 12.5 g INTRAVENOUS PRN - insulin lispro pen (rapid acting) (HumaLOG KWIKPEN) SUBCUTANEOUS w MEALS - heparin iv infusion (LOW DOSE ACS/NOMOGRAM) 25,000 units in NaCl 0.45% 250 mL PREMIX 0-3,000 Units/hr INTRAVENOUS CONTINUOUS And - heparin RATE CHANGE bolus 1,000-4,000 Units for subtherapeutic aptt results 1,000-4,000 Units INTRAVENOUS PRN - brimonidine 0.2 % 1 Drop (ALPHAGAN) 1 Drop LEFT EYE BID - amiodarone 360 mg in D5W 200 mL (NEXTERONE) 0.5 mg/min INTRAVENOUS CONTINUOUS - ALPRAZolam 0.5 mg tab(s) (XANAX) 0.5 mg ORAL HS PRN - aspirin 81 mg chewable tab(s) 81 mg ORAL DAILY - metoprolol tartrate (short acting) 50 mg tab(s) (LOPRESSOR) 50 mg ORAL BID - mupirocin 2 % ointment (BACTROBAN) TOPICAL BID - lisinopril 20 mg tab(s) (ZESTRIL, PRINIVIL) 20 mg ORAL DAILY - ipratropium-albuterol 3 mL nebulizer solution (DUONEB) 3 mL INHALATION q 4 H while awake - perflutren lipid microspheres 1.1 mg/mL 1.3 mL injection (DEFINITY) 1.3 mL INTRAVENOUS DIRECTED PRN DATA: Diagnostic tests reviewed for today's visit: Most recent labs and imaging results. Past 72 Hour Labs: Recent Labs 03/29/19 1210 03/29/19 0350 WBC -- 10.33* RBC -- 3.94* HB -- 13.4* HCT -- 39.0* MCV -- 99.0* MCH -- 34.0* MCHC -- 34.4 PLT -- 234 MPV -- 11.1 GLUC -- 128* BUN -- 17 CREAT -- 0.95 NA -- 140 K -- 3.7 CHLOR -- 106 CO2 -- 25 TPROT -- 6.1* ALB -- 3.2* CA -- 9.0 ALKPHOS -- 63 TBILI -- 0.2 AST -- 46* ALT -- 58 APTT 72.0* 43.3* Last Lab Drawn: Triglyceride 183 03/28/2019 HDL Cholesterol 36 03/28/2019 LDL Calculated 13 03/28/2019 Cholesterol, Total 86 03/28/2019 Assessment/Plan Active Problems: 1. Ventricular tachycardia-thought to be ischemic in nature continue amiodarone IV until coronary artery bypass grafting discussed with Dr. Roland No further episodes on telemetry. Continue beta svitlana therapy 2. Coronary artery disease-troponin peaked at 0.099. May be demand in the setting of ventricular tachycardia requiring defibrillation. Cardiac catheterization did identified multivessel coronary disease requiring coronary artery bypass grafting. Plan is for surgery early part of next week with Dr. Macias Continue aspirin beta svitlana statin and IV heparin 3. Hypertension-blood pressure is acceptable 4. Hyperlipidemia he remains on statin therapy LDL low at 13 5. Tobacco abuse-discussed the to quit aware of the risk on his cardiovascular system 6. Discharge plan-plans to follow-up with cardiology in [place] Dr Torres. Cardiology will follow Charo Farrell APRN.CNP Medication and Non-Pharmacologic VTE Prophylaxis/Anticoagu lants Anticoagulant AND Antiplatelet Medications (From admission, onward) Start Dose Route Frequency Ordered Stop 03/26/19 0930 aspirin 81 mg chewable tab(s) 81 mg ORAL DAILY 03/26/19 0900 -- 03/25/19 1930 heparin iv infusion (LOW DOSE ACS/NOMOGRAM) 25,000 units in NaCl 0.45% 250 mL PREMIX (Heparin Infusion + Rate Change Bolus) 0-30 mL/hr 0-3,000 Units/hr INTRAVENOUS CONTINUOUS 03/25/19 1906 -- @[facility]([id number],1)@ SIGNATURE: Charo Farrell APRN.[facility] PATIENT NAME: Rigo Diaz DATE: March 29, 2019 TIME: 1:03 PM PAGER/CONTACT #: [phone] [facility] NURSING PROGon 03-28-2019 NURSING PROG HNO ID: [id number] Author: Elizabet (Rn) BIBI Kwon Service: Nursing Author Type: Registered Nurse Type: Nursing Progress Note Filed: 03/28/2019 2:40 PM Note Text: [id number] Report called to [place] on 4200 1420 Patient transferred to 4201 via WC and monitor. Pt in bed with call light. Tele connected and RN in room. Amio and Heparin infusing. [facility] PROGRESSon 03-28-2019 PROGRESS HNO ID: [id number] Author: Rigo Roland Service: Cardiovascular Medicine Author Type: Physician Type: Progress Notes Filed: 03/28/2019 12:19 PM Note Text: Cardiovascular Intensive Care Progress Note March 28, 2019 Patient Name: Rigo Diaz Patient Location: [id number]/[facility]- [id number]* Admission Date: 03/25/2019 Length of Stay: 3 Primary Service: Cardiovascular Intensive Care Case Background: 68 year old White male PMHx: CAD s/p HAYDEN in 10/2017, HTN, hyperlipidemia, DM type 2, left subclavian artery stenosis, GERD, and glaucoma of the right eye. He is active smoker. Presented on 03/25/2019, referred from [facility] for evaluation of CABG. Hosp. Course: On 03/23/2019, the patient had diaphoresis, palpitations, dizziness, and collapsed at home. He was rushed by EMS to [facility] and was found to have VT. Shocked once and started amiodarone loading with return of NSR. The patient had minimal troponin increase, peaked at 0.099. He had a heart cath on 03/25 which showed multivessel disease. Transferred to [facility] for CABG. Last dose of Brilinta was given on 03/25 a morning. Patient admitted to CVICU in a stable condition. Echo and left heart cath images at [place] were reviewed. Patient has been evaluated by cardiothoracic surgery and cleared for surgery about 7 days after the last Brilinta dose. Vascular surgery consulted and evaluated the patient for carotid stenosis and left subclavian artery stenosis. CTA of the neck showed right lung nodule. No current facility-administered medications on file prior to encounter. Current Outpatient Medications on File Prior to Encounter: ALPHAGAN P 0.1 % drop USE 1 DROP IN THE LEFT EYE TWICE A DAY latanoprost (XALATAN) 0.005 % ophthalmic solution USE 1 DROP IN THE LEFT EYE DAILY AT BEDTIME, DISCARD AFTER 42 DAYS lisinopril 10 mg ORAL tablet Take 1 tablet by mouth once daily. simvastatin (ZOCOR) 40 mg ORAL tablet Take 1 tablet by mouth daily at bedtime. omega-3 fatty acids 1,000 mg ORAL Cap Take 1 capsule by mouth twice daily. METOPROLOL 50 MG TAB Take one(1) tablet two(2) times daily. multivitamins w-minerals/lut(CENTRU M SILVER TAB) Take one(1) tablet daily. niacin(NIASPAN 500 MG TAB) Take one(1) tablet daily aspirin(ECOTRIN LOW STRENGTH 81 MG TAB) Take one(1) tablet daily. IBUPROFEN 200 MG TAB as necessary taking 8797-7743 mg daily Interval History for 03/28/19: Patient seen and examined in the AM. No overnight events. The patient denies chest pain or SOB. States that he feels completely fine. He is aware that CABG will be done on Monday or Monday. Today he has cough. The patient has right lung nodule that was discovered incidentally on CTA of the neck. Discussed with the patient that he needs outpatient follow up. C/o some lung congestion; no chest pain Review of Systems: Review of Systems Constitutional: Negative for chills, diaphoresis and fever. HENT: Negative for congestion and sore throat. Eyes: Negative for blurred vision. Respiratory: Positive for cough. Negative for shortness of breath and wheezing. Cardiovascular: Negative for chest pain, palpitations, orthopnea, leg swelling and PND. Gastrointestinal: Negative for abdominal pain, constipation, diarrhea, nausea and vomiting. Genitourinary: Negative for dysuria, frequency and urgency. Neurological: Negative for dizziness, focal weakness and headaches. tele NSR BP 162/74 Pulse 66 Temp (Src) 96.6 (Temporal) Resp 17 Ht 6' 4 (1.93m) Wt 233 lb 7.5 oz (105.9kg) SpO2 100% BMI 28.43 kg/(m2). O2 Therapy: Room Air Temp (24hrs), Av.3 ?C (97.4 ?F), Min:35.9 ?C (96.6 ?F), Max:36.7 ?C (98.1 ?F) Physical Exam Constitutional: He is oriented to person, place, and time and well-developed, well-nourished, and in no distress. HENT: Head: Normocephalic and atraumatic. Mouth/Throat: No oropharyngeal exudate. Eyes: Pupils are equal, round, and reactive to light. EOM are normal. No scleral icterus. Neck: Neck supple. No JVD present. Cardiovascular: Normal heart sounds. Exam reveals no gallop and no friction rub. No murmur heard. Pulmonary/Chest: He has no wheezes. He has no rales. Tight breathing Abdominal: Bowel sounds are normal. He exhibits no distension. There is no tenderness. There is no guarding. Musculoskeletal: He exhibits no edema. Right radial catheter side with no bleeding. No diminished sensation of the right forearm or right wrist. Muscle power (squeeze fingers and paper test) are normal 5/5. Right hand and wrist are warm, dry. Capillary refill of right hand fingers is 2 seconds. Lymphadenopathy: He has no cervical adenopathy. Neurological: He is alert and oriented to person, place, and time. Skin: Skin is warm and dry. He is not diaphoretic. Attending addendum- Lungs-diminished breath sounds but no wheeze COR RRR Tr edema Awake and alert Telemetry: sinus bradycardia in 50s, few PVCs EKG: no new ischemic changes Most recent echo: no echo on file. Echo from [place] showed EF 53%, and stage II diastolic dysfunction. IANDO: Date 03/27/19 0700 - 03/28/19 0659 03/28/19 0700 - 03/29/19 0659 Shift 2724-3620 9101-3748 7908-5031 24 Hour Total 7521-3869 0601-9499 8826-5158 24 Hour Total INTAKE PO 093 213 2178 PO 769 969 4821 IV 423 336 759 Heparin IV 202 165 367 Amiodarone 221 171 392 Shift Total 840 6757 198 1525 OUTPUT Urine 905 364 1404 2450 Void (ml) 265 431 7976 2450 # of BMs Number of BMs 0 x 0 x Shift Total 836 225 8267 2450 Weight (kg) 105.9 105.9 105.9 105.9 105.9 105.9 105.9 105.9 Labs AND Imaging reviewed: DATA: BLOOD GAS: No results for input(s): VPH, VPC2, VPO2C, RESPHCO3, BASEX, [id number], PH, PCO2, RESPHCO3, BASEX, [id number] in the last 168 hours. Invalid input(s): PO2C CBC: Recent Labs 03/28/19 0548 03/27/19 0245 03/26/19 0220 03/25/19 1930 WBC 8.98 9.46* 10.20* 11.29* HB 13.6* 13.9 14.1 15.0 HCT 39.1* 40.2 40.6 42.1 PLT 234 247 218 231 MCV 97.5* 98.8* 97.1* 95.0 COAG: Recent Labs 03/28/19 0548 03/27/19 2255 03/27/19 1620 03/27/19 0930 03/27/1924403/26/19202103/26/1992403/26/1921903/25/191929 APTT 68.3* 62.8* 65.6* 45.6* 61.2* 39.3* 54.7* 33.6* 25.5 INR -- -- -- -- -- -- -- -- 1.04 BMP: Recent Labs 03/28/19 0503/27/1992903/27/1924403/26/1921903/25/191929 GLUC 129* 154* 119* 110* 101* NA 140 140 156* 141 138 K 3.9 3.9 3.2* 3.5 3.2* CHLOR 108* 110* 117* 110* 109* CO2 26 26 25 27 24 ANION 10 8 17* 8 8 BUN 14 11 12 10 11 CREAT 0.89 0.91 0.85 0.82 0.80 CHEM: Recent Labs 03/28/19 0503/27/1992903/27/1924403/26/1921903/25/191929 ALB 3.1* -- 3.0* 3.1* -- TPROT 6.2* -- 5.7* 6.0* -- CA 8.8 9.2 8.6 8.4* 8.8 MG -- -- -- -- 1.8 HEPATIC: Recent Labs 03/28/19 0548 03/27/1924403/26/19219 ALKPHOS 64 58 59 ALT 35 28 29 AST 21 19 14* TBILI 0.2 0.3 0.4 URINALYSIS: Recent Labs 03/27/19 1700 SPGR 1.016 UGLUC NEGATIVE UBILI NEGATIVE UKET NEGATIVE UPROT NEGATIVE UROBIL 1.0 CARDIAC: No results for input(s): CKTEST, CKMB, CKMBP, TROPT, PBNP in the last 168 hours. Lipid Panel: Cholesterol, Total Date Value Ref Range Status 03/28/2019 86 0 - 199 mg/dL Final Comment: <200 Desirable 200-240 Borderline >240 High HDL Cholesterol Date Value Ref Range Status 03/28/2019 36 >40 mg/dL Final LDL Calculated Date Value Ref Range Status 03/28/2019 13 mg/dL Final Comment: No CAD and with fewer than 2 CAD risk factors <160 mg/dL No CAD but with 2 or more CAD risk factors <130 mg/dL Definite CAD or other atherosclerotic disease <100 mg/dL Triglyceride Date Value Ref Range Status 03/28/2019 183 (H) 0 - 149 mg/dL Final Comment: < 200 Desirable Result invalid if not a fasting specimen. Current active therapies: Current Facility-Administered Medications Medication Dose Route Frequency - atorvastatin 40 mg tab(s) (LIPITOR) 40 mg ORAL AT BEDTIME - latanoprost 0.005 % 1 Drop (XALATAN) 1 Drop BOTH EYES BID (0600/2100) - potassium chloride ER 20-40 mEq tab(s) (K-DUR, KLOR-CON) 20-40 mEq ORAL/FEEDING TUBE PRN Or - potassium chloride iv piggyback 20 mEq/100 mL 20 mEq INTRAVENOUS PRN - magnesium sulfate in water 2 g in sterile water 50 ml 2 g INTRAVENOUS PRN - sodium phosphate 45 mmol in NaCl 0.9% 250 mL 45 mmol INTRAVENOUS PRN - calcium gluconate 4 g in NaCl 0.9% 250 mL 4 g INTRAVENOUS PRN - dextrose 40 % 15 g 15 g ORAL PRN Or - glucagon 1 mg injection (GLUCAGEN) 1 mg INTRAMUSCULAR PRN Or - dextrose 50 % 12.5 g injection 12.5 g INTRAVENOUS PRN - insulin lispro pen (rapid acting) (HumaLOG KWIKPEN) SUBCUTANEOUS w MEALS - heparin iv infusion (LOW DOSE ACS/NOMOGRAM) 25,000 units in NaCl 0.45% 250 mL PREMIX 0-3,000 Units/hr INTRAVENOUS CONTINUOUS And - heparin RATE CHANGE bolus 1,000-4,000 Units for subtherapeutic aptt results 1,000-4,000 Units INTRAVENOUS PRN - brimonidine 0.2 % 1 Drop (ALPHAGAN) 1 Drop LEFT EYE BID - amiodarone 360 mg in D5W 200 mL (NEXTERONE) 0.5 mg/min INTRAVENOUS CONTINUOUS - ALPRAZolam 0.5 mg tab(s) (XANAX) 0.5 mg ORAL HS PRN - aspirin 81 mg chewable tab(s) 81 mg ORAL DAILY - metoprolol tartrate (short acting) 50 mg tab(s) (LOPRESSOR) 50 mg ORAL BID - mupirocin 2 % ointment (BACTROBAN) TOPICAL BID - lisinopril 20 mg tab(s) (ZESTRIL, PRINIVIL) 20 mg ORAL DAILY - ipratropium-albuterol 3 mL nebulizer solution (DUONEB) 3 mL INHALATION q 4 H while awake Assessment/Plan Reviewed in its entirety and amended as appropriate on 03/28/19 ASSESSMENT ANDPLAN Coronary Artery Disease s/p HAYDEN in 10/2107 - Multivessel Disease ? The patient presented to [facility] with VT that required a shock ? Troponin peaked at 0.099 ? Echo images reviewed and didn't show significant WMA ? Heart cath images reviewed and showed multivessel disease which requires CABG ? Cardiothoracic surgery consulted ? CABG early next week to allow Brilinta to clear system ? Last dose of Brilinta on 03/25/2019 at morning ? ASA, statin, lopressor, lisinopril, and heparin drip Ventricular Tachycardia ? Patient presented to [facility] with VT that required a shock ? Currently in normal sinus rhythm ? Tele doesn't show frequent tachy arrhythmias ? Monitor and replace electrolytes ? Amiodarone and lopressor ? Suspect VT related to acute ischemia, doubt will need ICD: will ask EP to see post cabg in hosp for input Hypertension ? BP is running high ? Increased lopressor dose to his home dose, 50 mg bid ? Increased lisinopril dose to his home dose, 10 mg qd ? Monitor BP from both arms due to left subclavian artery stenosis ? 03/28/2019: BP is still not well controlled, increased lisinopril to 20 mg qd Hypernatremia - False ? 03/27/2019: Na 156, was 141 the day before ? no real reason for this hypernatremia and the patient is asymptomatic and doesn't look dehydrated-suspect lab error ? Repeat BMP with Na 140 Hyperlipidemia ? Continue statin DM ? The patient denies history of DM ? A1C is 6.7 ? Blood glucose well controlled for now ? Outpatient management with PCP Tobacco Use Disorder-clinically moderate COPD PFTs pending; if signif copd suggest pulm med consult prior to cabg ? Discussed the need to quit smoking Left Subclavian Artery Stenosis ? No signs of left arm ischemia ? Stable ? Measure BP from both arms. Left arm is expected to give false lower numbers ? Vascular surgery input is appreciated Glaucoma of Right Eye ? Continue home eye drops and medications Cough ? The patient has COPD with cough ? Ordered new XR of chest for evaluation Pulmonary Nodule ? Incidental discovery of right lung nodule on CTA of the neck ? Patient will need outpatient follow up ? Discussed with the patient today I saw and evaluated the patient. Discussed with the resident and agree with resident's findings and plan as documented in the resident's note. Rigo Roland MD Pager [phone] Okay for tele on current meds Signed: Harmony Recio DO PGY1 Pager: [phone] Date: March 28, 2019 Time: 8:56 AM Recommendations are not finalized until co-signed by Staff physician. [facility] CASE MANAGEMon 03-27-2019 CASE MANAGEM HNO ID: [id number] Author: Елена Land Service: Care Management Author Type: ? Type: Care Mgt Progress Note Filed: 03/27/2019 11:11 AM Note Text: CARE MANAGEMENT PROGRESS NOTE SERVICE DATE: 03/27/2019 SERVICE TIME: 1100 LOS: 2 days IM letter given to patient on . SIGNATURE: Елена Land PATIENT NAME: Rigo Diaz DATE: March 27, 2019 TIME: 11:10 AM PAGER/CONTACT #: [phone] [facility] CASE MANAGEM HNO ID: [id number] Author: Norah DrakeRnLindsay Ortega RN Service: ? Author Type: Registered Nurse Type: Care Mgt Progress Note Filed: 03/27/2019 10:36 AM Note Text: CARE MANAGEMENT PROGRESS NOTE SERVICE DATE: 03/27/2019 SERVICE TIME: 10:36 AM LOS: 2 days Needs Prior to Discharge: Discharge Prescriptions;Home Care Order [facility] has accepted. Disch plan: Home with and C. SIGNATURE: Norah Ortega RN PATIENT NAME: Rigo Diaz DATE: March 27, 2019 TIME: 10:36 AM PAGER/CONTACT #: [phone] [facility] NURSING PROGon 03-27-2019 NURSING PROG HNO ID: [id number] Author: Harry DrakeRn) BIBI Coulter Service: Nursing Author Type: Registered Nurse Type: Nursing Progress Note Filed: 03/27/2019 8:12 AM Note Text: Patient talking on the telephone. Denies chest pain and shortness of breath. Appropriate behavior. Relaxed and comfortable with upcoming surgery. Denies pain. Heparin at 1400 un/hr and Amiodarone at 0.5 mg/hr. Vital signs and assessment as charted in Epic. Normal [facility] PROGRESSon 03-27-2019 PROGRESS HNO ID: [id number] Author: Rigo Roland Service: Cardiovascular Medicine Author Type: Physician Type: Progress Notes Filed: 03/27/2019 12:09 PM Note Text: Cardiovascular Intensive Care Progress Note March 27, 2019 Patient Name: Rigo Diaz Patient Location: [id number]/[facility]- 322* Admission Date: 03/25/2019 Length of Stay: 2 Primary Service: Cardiovascular Intensive Care Case Background: 68 year old White male PMHx: CAD s/p HAYDEN in 10/2017, HTN, hyperlipidemia, DM type 2, left subclavian artery stenosis, GERD, and glaucoma of the right eye. He is active smoker. Presented on 03/25/2019, referred from [facility] for evaluation of CABG. Hosp. Course: On 03/23/2019, the patient had diaphoresis, palpitations, dizziness, and collapsed at home. He was rushed by EMS to [facility] and was found to have VT. Shocked once and started amiodarone loading with return of NSR. The patient had minimal troponin increase, peaked at 0.099. He had a heart cath on 03/25 which showed multivessel disease. Transferred to [facility] for CABG. Last dose of Brilinta was given on 03/25 a morning. Patient admitted to CVICU in a stable condition. Echo and left heart cath images at [place] were reviewed. Patient has been evaluated by cardiothoracic surgery and cleared for surgery about 7 days after the last Brilinta dose. Vascular surgery consulted and evaluated the patient for carotid stenosis and left subclavian artery stenosis. No current facility-administered medications on file prior to encounter. Current Outpatient Medications on File Prior to Encounter: ALPHAGAN P 0.1 % drop USE 1 DROP IN THE LEFT EYE TWICE A DAY latanoprost (XALATAN) 0.005 % ophthalmic solution USE 1 DROP IN THE LEFT EYE DAILY AT BEDTIME, DISCARD AFTER 42 DAYS lisinopril 10 mg ORAL tablet Take 1 tablet by mouth once daily. simvastatin (ZOCOR) 40 mg ORAL tablet Take 1 tablet by mouth daily at bedtime. omega-3 fatty acids 1,000 mg ORAL Cap Take 1 capsule by mouth twice daily. METOPROLOL 50 MG TAB Take one(1) tablet two(2) times daily. multivitamins w-minerals/lut(CENTRU M SILVER TAB) Take one(1) tablet daily. niacin(NIASPAN 500 MG TAB) Take one(1) tablet daily aspirin(ECOTRIN LOW STRENGTH 81 MG TAB) Take one(1) tablet daily. IBUPROFEN 200 MG TAB as necessary taking 0634-3120 mg daily Interval History for 03/27/19: Patient seen and examined in the AM. No overnight events. The patient denies chest pain or SOB. States that he feels completely fine. He is aware that CABG will be done on Monday or Monday. Review of Systems: Review of Systems Constitutional: Negative for chills, diaphoresis and fever. HENT: Negative for congestion and sore throat. Eyes: Negative for blurred vision. Respiratory: Negative for cough, shortness of breath and wheezing. Cardiovascular: Negative for chest pain, palpitations, orthopnea, leg swelling and PND. Gastrointestinal: Negative for abdominal pain, constipation, diarrhea, nausea and vomiting. Genitourinary: Negative for dysuria, frequency and urgency. Neurological: Negative for dizziness, focal weakness and headaches. tele NSR BP 159/85 Pulse 70 Temp (Src) 97.2 (Temporal) Resp 18 Ht 6' 4 (1.93m) Wt 233 lb 7.5 oz (105.9kg) SpO2 99% BMI 28.43 kg/(m2). O2 Therapy: Room Air Temp (24hrs), Av.7 ?C (98 ?F), Min:36 ?C (96.8 ?F), Max:37.4 ?C (99.3 ?F) Physical Exam Constitutional: He is oriented to person, place, and time and well-developed, well-nourished, and in no distress. HENT: Head: Normocephalic and atraumatic. Mouth/Throat: No oropharyngeal exudate. Eyes: Pupils are equal, round, and reactive to light. EOM are normal. No scleral icterus. Neck: Neck supple. No JVD present. Cardiovascular: Normal heart sounds. Exam reveals no gallop and no friction rub. No murmur heard. Pulmonary/Chest: Breath sounds normal. He has no wheezes. He has no rales. Abdominal: Bowel sounds are normal. He exhibits no distension. There is no tenderness. There is no guarding. Musculoskeletal: He exhibits no edema. Lymphadenopathy: He has no cervical adenopathy. Neurological: He is alert and oriented to person, place, and time. Skin: Skin is warm and dry. He is not diaphoretic. Attending exam Constitutional:in no distress. HENT: Head: Normocephalic Neck: Neck supple. No JVD present. Cardiovascular: RRR Pulmonary/Chest: no wheeze Abdominal: nontender Musculoskeletal: He exhibits no edema. Neurological: He is alert and oriented to person, place, and time. R rad cath site clean Telemetry: sinus bradycardia in 50s, few PVCs EKG: no new ischemic changes Most recent echo: no echo on file. Echo from [place] showed EF 53%, and stage II diastolic dysfunction. IANDO: Date 03/26/19 07 - 03/27/19 0659 03/27/19 07 - 03/28/19 0659 Shift 0574-1127 4818-8571 6045-8807 24 Hour Total 3912-3775 4606-5591 6449-6689 24 Hour Total INTAKE PO 480 200 680 240 240 PO 480 200 680 240 240 IV 117.2 333 295 745.2 Heparin IV 26.9 139 133 298.9 Amiodarone 90.3 194 162 446.3 Shift Total 597.2 271 905 1400.2 240 240 OUTPUT Urine 550 483 330 6132 250 250 Void (ml) 550 494 207 3765 250 250 # of BMs Number of BMs 0 x 0 x 0 x 0 x Shift Total 550 421 866 8393 250 250 Weight (kg) 105.9 105.9 105.9 105.9 105.9 105.9 105.9 105.9 Labs AND Imaging reviewed: DATA: BLOOD GAS: No results for input(s): VPH, VPC2, VPO2C, RESPHCO3, BASEX, S2DZSSCD, PH, PCO2, RESPHCO3, BASEX, [id number] in the last 168 hours. Invalid input(s): PO2C CBC: Recent Labs 03/27/1924403/26/1921903/25/191929 WBC 9.46* 10.20* 11.29* HB 13.9 14.1 15.0 HCT 40.2 40.6 42.1 PLT 247 218 231 MCV 98.8* 97.1* 95.0 COAG: Recent Labs 03/27/1992903/27/1924403/26/19202103/26/1992403/26/1921903/25/191929 APTT 45.6* 61.2* 39.3* 54.7* 33.6* 25.5 INR -- -- -- -- -- 1.04 BMP: Recent Labs 03/27/1924403/26/1921903/25/191929 GLUC 119* 110* 101* NA 156* 141 138 K 3.2* 3.5 3.2* CHLOR 117* 110* 109* CO2 25 27 24 ANION 17* 8 8 BUN 12 10 11 CREAT 0.85 0.82 0.80 CHEM: Recent Labs 03/27/1924403/26/1921903/25/191929 ALB 3.0* 3.1* -- TPROT 5.7* 6.0* -- CA 8.6 8.4* 8.8 MG -- -- 1.8 HEPATIC: Recent Labs 03/27/1924403/26/19219 ALKPHOS 58 59 ALT 28 29 AST 19 14* TBILI 0.3 0.4 URINALYSIS: No results for input(s): PH, SPGR, UGLUC, UBILI, UKET, UHB, UPROT, UROBIL, UWBC, SSA in the last 168 hours. Invalid input(s): NITR CARDIAC: No results for input(s): CKTEST, CKMB, CKMBP, TROPT, PBNP in the last 168 hours. Lipid Panel: No results found for: CHOL, HDL, LDL, TG Current active therapies: Current Facility-Administered Medications Medication Dose Route Frequency - atorvastatin 40 mg tab(s) (LIPITOR) 40 mg ORAL AT BEDTIME - latanoprost 0.005 % 1 Drop (XALATAN) 1 Drop BOTH EYES BID (0600/2100) - potassium chloride ER 20-40 mEq tab(s) (K-DUR, KLOR-CON) 20-40 mEq ORAL/FEEDING TUBE PRN Or - potassium chloride iv piggyback 20 mEq/100 mL 20 mEq INTRAVENOUS PRN - magnesium sulfate in water 2 g in sterile water 50 ml 2 g INTRAVENOUS PRN - sodium phosphate 45 mmol in NaCl 0.9% 250 mL 45 mmol INTRAVENOUS PRN - calcium gluconate 4 g in NaCl 0.9% 250 mL 4 g INTRAVENOUS PRN - dextrose 40 % 15 g 15 g ORAL PRN Or - glucagon 1 mg injection (GLUCAGEN) 1 mg INTRAMUSCULAR PRN Or - dextrose 50 % 12.5 g injection 12.5 g INTRAVENOUS PRN - insulin lispro pen (rapid acting) (HumaLOG KWIKPEN) SUBCUTANEOUS w MEALS - heparin iv infusion (LOW DOSE ACS/NOMOGRAM) 25,000 units in NaCl 0.45% 250 mL PREMIX 0-3,000 Units/hr INTRAVENOUS CONTINUOUS And - heparin RATE CHANGE bolus 1,000-4,000 Units for subtherapeutic aptt results 1,000-4,000 Units INTRAVENOUS PRN - brimonidine 0.2 % 1 Drop (ALPHAGAN) 1 Drop LEFT EYE BID - amiodarone 360 mg in D5W 200 mL (NEXTERONE) 0.5 mg/min INTRAVENOUS CONTINUOUS - ALPRAZolam 0.5 mg tab(s) (XANAX) 0.5 mg ORAL HS PRN - aspirin 81 mg chewable tab(s) 81 mg ORAL DAILY - iv contrast (radiology procedure) INTRAVENOUS DIRECTED PRN - iv contrast (radiology procedure) INTRAVENOUS DIRECTED PRN - lisinopril 10 mg tab(s) (ZESTRIL, PRINIVIL) 10 mg ORAL DAILY - metoprolol tartrate (short acting) 50 mg tab(s) (LOPRESSOR) 50 mg ORAL BID - mupirocin 2 % ointment (BACTROBAN) TOPICAL BID Assessment/Plan Reviewed in its entirety and amended as appropriate on 03/27/19 ASSESSMENT ANDPLAN Coronary Artery Disease s/p HAYDEN in 10/2107 - Multivessel Disease ? The patient presented to [facility] with VT that required a shock ? Troponin peaked at 0.099 ? Echo images reviewed and didn't show significant WMA ? Heart cath images reviewed and showed multivessel disease which requires CABG ? Cardiothoracic surgery consulted ? Likely, the surgery will be delayed for 4 more days due to recent use of Brilinta ? Last dose of Brilinta on 03/25/2019 at morning ? ASA, statin, lopressor, lisinopril, and heparin drip Ventricular Tachycardia ? Patient presented to [facility] with VT that required a shock ? Currently in normal sinus rhythm ? Tele doesn't show frequent tachy arrhythmias ? Monitor and replace electrolytes ? Amiodarone IV and lopressor ? Suspect VT related to acute ischemia, doubt will need ICD: will ask EP to see post cabg in hosp for input Hypertension ? BP is running high ? Increased lopressor dose to his home dose, 50 mg bid ? Increased lisinopril dose to his home dose, 10 mg qd ? Monitor BP from both arms due to left subclavian artery stenosis Hypernatremia ? 03/27/2019: Na 156, was 141 the day before ? no real reason for this hypernatremia and the patient is asymptomatic and doesn't look dehydrated-suspect lab error ? Repeat BMP for evaluation Hyperlipidemia ? Continue statin DM ? The patient denies history of DM ? A1C is 6.7 ? Blood glucose well controlled for now ? Outpatient management with PCP Tobacco Use Disorder ? Discussed the need to quit smoking Left Subclavian Artery Stenosis ? No signs of left arm ischemia ? Stable ? Measure BP from both arms. Left arm is expected to give false lower numbers ? Vascular surgery input is appreciated Glaucoma of Right Eye ? Continue home eye drops and medications Signed: Harmony Recio DO PGY1 Pager: [phone] Date: March 27, 2019 Time: 10:21 AM I saw and evaluated the patient. Discussed with the resident and agree with resident's findings and plan as documented in the resident's note. Rigo Roland MD Pager [phone] Recommendations are not finalized until co-signed by Staff physician. [facility] PROGRESS HNO ID: [id number] Author: Alka Hatch Service: Vascular Surgery Author Type: Resident Type: Progress Notes Filed: 03/27/2019 2:15 PM Note Text: Attestation signed by Sydnee Weems at 03/27/2019 4:06 PM I saw and evaluated the patient. Discussed with the resident and agree with resident's findings and plan as documented in the resident's note. Imaging reviewed. Poor stent candidate due to length of lesion, quality, and proximity to vertebral artery. HUIZAR free graft may be better option, but will defer to cardiac surgery for that decision. If the pt has issues in the future with regards to the L subclavian artery, Carotid-subclavian bypass is likely the best option. Please call with questions. Sydnee Weems MD Vascular Surgery Progress Note SERVICE DATE: 03/27/2019 SUBJECTIVE: No acute events overnight. Resting comfortably this am. Tolerating diet DIET CARBOHYDRATE CONTROLLED OBJECTIVE: Vitals: Temp (24hrs), Av.7 ?C (98.1 ?F), Min:36 ?C (96.8 ?F), Max:37.4 ?C (99.3 ?F) BP 142/85 Pulse (!) 58 Temp 36.2 ?C (97.2 ?F) (Temporal) Resp 19 Ht 193 cm (6' 4) Wt 105.9 kg (233 lb 7.5 oz) SpO2 96% BMI 28.42 kg/m? O2 Therapy: Room Air IANDO: Date 03/26/19699 - 03/27/1965803/27/19699 - 03/28/19658 Shift 8910-7267 9880-6308 2804-8892 24 Hour Total 9300-7124 9997-6781 9174-7615 24 Hour Total INTAKE PO 480 200 680 PO 480 200 680 IV 117.2 333 295 745.2 Heparin IV 26.9 139 133 298.9 Amiodarone 90.3 194 162 446.3 Shift Total 597.2 019 794 0450.2 OUTPUT Urine 550 090 720 5053 Void (ml) 550 964 631 4307 # of BMs Number of BMs 0 x 0 x Shift Total 550 767 926 5901 Weight (kg) 105.9 105.9 105.9 105.9 105.9 105.9 105.9 105.9 MEDICATIONS Current Facility-Administered Medications Medication Dose Route Frequency - aspirin 81 mg chewable tab(s) 81 mg ORAL DAILY - iv contrast (radiology procedure) INTRAVENOUS DIRECTED PRN - iv contrast (radiology procedure) INTRAVENOUS DIRECTED PRN - lisinopril 10 mg tab(s) (ZESTRIL, PRINIVIL) 10 mg ORAL DAILY - metoprolol tartrate (short acting) 50 mg tab(s) (LOPRESSOR) 50 mg ORAL BID - mupirocin 2 % ointment (BACTROBAN) TOPICAL BID - atorvastatin 40 mg tab(s) (LIPITOR) 40 mg ORAL AT BEDTIME - latanoprost 0.005 % 1 Drop (XALATAN) 1 Drop BOTH EYES BID (0600/2100) - potassium chloride ER 20-40 mEq tab(s) (K-DUR, KLOR-CON) 20-40 mEq ORAL/FEEDING TUBE PRN Or - potassium chloride iv piggyback 20 mEq/100 mL 20 mEq INTRAVENOUS PRN - magnesium sulfate in water 2 g in sterile water 50 ml 2 g INTRAVENOUS PRN - sodium phosphate 45 mmol in NaCl 0.9% 250 mL 45 mmol INTRAVENOUS PRN - calcium gluconate 4 g in NaCl 0.9% 250 mL 4 g INTRAVENOUS PRN - dextrose 40 % 15 g 15 g ORAL PRN Or - glucagon 1 mg injection (GLUCAGEN) 1 mg INTRAMUSCULAR PRN Or - dextrose 50 % 12.5 g injection 12.5 g INTRAVENOUS PRN - insulin lispro pen (rapid acting) (HumaLOG KWIKPEN) SUBCUTANEOUS w MEALS - heparin iv infusion (LOW DOSE ACS/NOMOGRAM) 25,000 units in NaCl 0.45% 250 mL PREMIX 0-3,000 Units/hr INTRAVENOUS CONTINUOUS And - heparin RATE CHANGE bolus 1,000-4,000 Units for subtherapeutic aptt results 1,000-4,000 Units INTRAVENOUS PRN - brimonidine 0.2 % 1 Drop (ALPHAGAN) 1 Drop LEFT EYE BID - amiodarone 360 mg in D5W 200 mL (NEXTERONE) 0.5 mg/min INTRAVENOUS CONTINUOUS - ALPRAZolam 0.5 mg tab(s) (XANAX) 0.5 mg ORAL HS PRN Labs: Recent Labs 03/27/19 0245 03/26/19 0220 03/25/19 1930 NA 156* 141 138 K 3.2* 3.5 3.2* CHLOR 117* 110* 109* CO2 25 27 24 BUN 12 10 11 CREAT 0.85 0.82 0.80 GLUC 119* 110* 101* ANION 17* 8 8 CA 8.6 8.4* 8.8 MG -- -- 1.8 P -- -- 2.0* ALB 3.0* 3.1* -- AST 19 14* -- ALT 28 29 -- ALKPHOS 58 59 -- TBILI 0.3 0.4 -- WBC 9.46* 10.20* 11.29* HB 13.9 14.1 15.0 HCT 40.2 40.6 42.1 PLT 247 218 231 INR -- -- 1.04 CTA: IMPRESSION: Occluded proximal left subclavian artery with reconstitution of intraluminal contrast just proximal to the left internal thoracic artery and left vertebral artery origins. No evidence of cervical or vertebral arterial narrowing or high-grade stenosis. Incidental Finding: Partially imaged 1 cm nodule in the superior segment of the right lower lobe. ?Recommend dedicated chest CT for complete characterization of the lung parenchyma. Exam: BP 160/56 Pulse 62 Temp 36.7 ?C (98.1 ?F) (Temporal) Resp 26 Ht 193 cm (6' 4) Wt 105.9 kg (233 lb 7.5 oz) SpO2 97% BMI 28.42 kg/m? GENERAL: No distress, Alert NEURO: Alert HEENT: normocephalic, atraumatic LUNGS: Unlabored breathing CARDIAC: Regular rate ASSESSMENT AND PLAN: Active Hospital Problems Diagnosis Date Noted - Acute myocardial infarction (HCC) 03/25/2019 68 year old male with multivessel CAD -requiring CABG. Vascular surgery on consult for L subclavian stenosis ? Imaging c/w L subclavian occlusion with reconstitution just proximal to L internal thoracic artery and left vertebral artery origins Due to proximity to vertebral artery/HUIZAR takeoff- patient would not be candidate for vascular stent Will discuss alternative options for conduit vessel with CTS team Medical management per primary ? Vascular AND Thoracic Surgery Service Pager: For questions or concerns Mon-Mon 6a-5p please page [phone]. After 5pm and on Weekends and Holidays, please page [phone] if in ICU or [phone] if on RNF. SIGNATURE: Alka Hatch MD PATIENT NAME: Rigo Diaz DATE: March 27, 2019 TIME: 6:24 AM Pager: [facility] CASE MGT INIT JUAN CARLOSESon 2018 CASE MGT INIT XIMENA HNO ID: [id number] Author: Norah (Rn) BIBI Ortega Service: ? Author Type: Registered Nurse Type: Care Mgt Initial Assessment Filed: 03/26/2019 11:15 AM Note Text: CARE MANAGEMENT: ASSESSMENT AND DISCHARGE PLAN SERVICE DATE: 03/26/2019 SERVICE TIME: 11:08 AM PRIMARY CARE PHYSICIAN: Carol Mckee MD ADMISSION STATUS: Inpatient Needs Prior to Discharge: Discharge Prescriptions;Home Care Order MEDICAL: Patient/Representativ e Stated Goals: To have reduction in pain To have reduction in symptoms To improve my functional status To return home to life as it was To be cured/healed Health Insurance: MEDICARE A AND B For Life Health Issues Impacting Discharge Plan: Newly diagnosed needs CABG Last Discharge Date: 07/23/12 Is this Within the Past 30 days? No Advance Directive: Current Advance Directive: None [employer] Attempted to Assist with AD Completion: Yes Action: Education Provided Health Literacy: 1. How often do you need to have someone help you when you read instructions, pamphlets, or other written material from your doctor or pharmacy? Never - 1 2. How confident are you filling out medical forms by yourself? Extremely - 1 If Patient scores > 3 on either question, the following interventions were put into place: Patient did not score > 3 FUNCTIONAL AND COGNITIVE/BEHAVIORAL PRIOR TO ADMISSION: Baseline Mental Status: Alert AND Oriented, Person, Place , Time and Situation Functional Status: Independent Does Patient Currently Receive Any Community Services or Home Care? None Equipment Prior to Admission: None Has the Patient Been in a Halfway Facility in the Past 30 days? No SOCIAL: Living Arrangement: Home Lives With: Spouse Financial Resources: Retired Primary Contact: Extended Emergency Contact Information Primary Emergency Contact: Katherine Diaz [address]: [address] [place] [id number] Mobile Relation: Spouse Supportive: Yes Other Important Patient Contacts: None Caregiver Assessment: Caregiver is ready, willing and able to meet the patient's needs as recommended by the inter-professional team? Yes Patient's transition needs and plan for meeting these needs: home, assist and HHC Does the patient have an acute stroke diagnosis, or has the patient had a stroke during this admission? No Medication Adherence: I am convinced of the importance of my prescription medication: Agree completely - 0 I worry that my prescription medication will do more harm than good to me Disagree completely - 0 I feel financially burdened by my [id number] expenses for my prescription medication: Disagree completely - 0 Patient is categorized as low risk < 2 Are you interested in bedside delivery of your medications? Yes Food Concerns: In the Last Month, Have You had Trouble Getting Food? No trouble getting food During the Last Month, Have You Worried Whether Your Food Would Run Out Before You Had Enough Money to Buy More? No Is the Patient Psychosocially Complex? 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 Plan is for CABG, date to be determined (Brilinta washout). Discussed post CABG disch needs. states she will be home with . [facility]. SIGNATURE: Norah Ortega RN PATIENT NAME: Rigo Diaz DATE: March 26, 2019 TIME: 11:08 AM PAGER/CONTACT #: [phone] [facility] CONSULTon 03-26-2019 CONSULT HNO ID: [id number] Author: Colt Macias Service: Cardiac Surgery Author Type: Physician Type: Consults Filed: 04/04/2019 3:15 PM Note Text: CARDIOTHORACIC SURGERY CONSULT / HANDP SERVICE DATE: 03/26/2019 SERVICE TIME: 3:17 PM Subjective PRIMARY SERVICE: Cardiothoracic Surgery CHIEF COMPLAINT: Chest pain HPI: Mr. Diaz is a 68 y/o male with past medical history of acute myocardial infarction requiring HAYDEN x 2 to RCA in October of 2017 (has been on Brilinta since), recent sustained ventricular tachycardia requiring defibrillation, recent NSTEMI, HTN, HLD, DM2, left subclavian artery stenosis (needs to be evaluated prior to CABG), GERD, and current tobacco smoker who presented to [place] ED via EMS on 03/23/2019 with chest pain. According to EMR, the EMS team found him in vtach, he converted after 1 shock and amiodarone bolus was initiated. He underwent left heart cath which revealed multivessel CAD. Pt was then transfered to [facility] for CTS assessment. Here he remains in NSR and pain free in CVICU on heparin and amio drips. He will need additional workup prior to CABG as well as Brilinta washout x 7 days prior to CABG. Patient is Able to Perform the Following Physical Activity: Walk indoors, such as around the house (1.75 METs) Do light work around the house, such as dusting or washing dishes (2.70 METs) Take care of self; that is eating, dressing, bathing, using the toilet (2.75 METs) Do moderate work around the house such as vacuuming, sweeping floors, or carrying in groceries (3.50 METs) Patient has the following medical comorbidities which might affect the perioperative course: - CAD of the nikolski vessel. Status post PCI (with Drug Eluding Stent x 2 implanted on 10/2017).. - non diagnosed COPD - Type II Diabetes with no complications. Patient is on newly diagnosed. - Hypertension, well controlled. - Patient is overweight related to excessive caloric intake. Body mass index is 28.42 kg/m?. 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 - PAST SURGICAL HISTORY OF 2002 herniorrhaphy left inguinal - PAST SURGICAL HISTORY OF 1963 elbow surgery bone chips - REMOVE CATARACT, INSERT LENS,EX 2010 OD - REMOVE CATARACT, INSERT LENS,EX OS 07/23/12 OS - TRABECULECTOMY WITH SCARRING 2010 OD FAMILY HISTORY Problem Relation Age of Onset - Emphysema Father - No Ocular Disease Father - Coronary Artery Disease Mother - No Ocular Disease Mother - Macular Degen Other Social History Tobacco Use - Smoking status: Current Every Day Smoker Packs/day: 1.00 Years: 50.00 Pack years: 50.00 Types: Cigarettes - Smokeless tobacco: Never Used Substance Use Topics - Alcohol use: No - Drug use: No Medications Prior to Admission: ALPHAGAN P 0.1 % drop USE 1 DROP IN THE LEFT EYE TWICE A DAY Disp: 15 mL Rfl: 0 latanoprost (XALATAN) 0.005 % ophthalmic solution USE 1 DROP IN THE LEFT EYE DAILY AT BEDTIME, DISCARD AFTER 42 DAYS Disp: 2.5 mL Rfl: 0 lisinopril 10 mg ORAL tablet Take 1 tablet by mouth once daily. Disp: Rfl: 0 simvastatin (ZOCOR) 40 mg ORAL tablet Take 1 tablet by mouth daily at bedtime. Disp: Rfl: 0 omega-3 fatty acids 1,000 mg ORAL Cap Take 1 capsule by mouth twice daily. Disp: Rfl: 0 METOPROLOL 50 MG TAB Take one(1) tablet two(2) times daily. Disp: 60 Rfl: 5 multivitamins w-minerals/lut(CENTRU M SILVER TAB) Take one(1) tablet daily. Disp: Rfl: 0 niacin(NIASPAN 500 MG TAB) Take one(1) tablet daily Disp: Rfl: 0 aspirin(ECOTRIN LOW STRENGTH 81 MG TAB) Take one(1) tablet daily. Disp: Rfl: 0 IBUPROFEN 200 MG TAB as necessary taking 1695-8188 mg daily Disp: Rfl: 0 ALPHAGAN P 0.1 % drop USE 1 DROP IN THE LEFT EYE TWICE A DAY latanoprost (XALATAN) 0.005 % ophthalmic solution USE 1 DROP IN THE LEFT EYE DAILY AT BEDTIME, DISCARD AFTER 42 DAYS lisinopril 10 mg ORAL tablet Take 1 tablet by mouth once daily. simvastatin (ZOCOR) 40 mg ORAL tablet Take 1 tablet by mouth daily at bedtime. omega-3 fatty acids 1,000 mg ORAL Cap Take 1 capsule by mouth twice daily. METOPROLOL 50 MG TAB Take one(1) tablet two(2) times daily. multivitamins w-minerals/lut(CENTRU M SILVER TAB) Take one(1) tablet daily. niacin(NIASPAN 500 MG TAB) Take one(1) tablet daily aspirin(ECOTRIN LOW STRENGTH 81 MG TAB) Take one(1) tablet daily. IBUPROFEN 200 MG TAB as necessary taking 8161-4876 mg daily ALLERGIES No Known Allergies REVIEW OF SYSTEMS: PAIN ASSESSMENT: Negative for pain, history of chronic pain, or current treatment for a chronic pain condition. GENERAL: No weight loss, malaise or fevers HEENT: Negative for frequent or significant headaches, No changes in hearing or vision, no nose bleeds or other nasal problems RESPIRATORY: Negative for cough, wheezing or shortness of breath. CARDIOVASCULAR: Negative for leg swelling palpitations claudication, Positive for chest pain GI: Negative for abdominal discomfort, blood in stools or black stools or change in bowel habits HEMATOLOGY/LYMPHOLOGY Negative for prolonged bleeding, bruising easily or swollen nodes. ENDOCRINE: Negative for cold or heat intolerance, polyuria, polydipsia and goiter. NEURO: No history of headaches, syncope, paralysis, seizures or tremors Objective PHYSICAL EXAM: BP 150/69 Pulse 75 Temp 36.9 ?C (98.4 ?F) (Temporal) Resp 18 Ht 193 cm (6' 4) Wt 105.9 kg (233 lb 7.5 oz) SpO2 98% BMI 28.42 kg/m? Body surface area is 2.38 meters squared. STS RISK CALCULATOR: TBD STS Calculator Lines, Drains, and Airways Line Peripheral 03/25/19 1859 Admission to Hospital Short Right Antecubital 20 Gauge less than 1 day Peripheral 03/25/19 1900 Short Left Forearm 20 Gauge less than 1 day @LDAASSESS(2::::8:)@ DATA: Diagnostic tests reviewed for today's visit: Cardiac Catheterization: reading not available ECHO: [facility] [address] [place] [address] Echo Complete W/ Contrast 03/25/19 0810 MR#: [id number] Acct: [id number] Name: RIGO DIAZ JORDAN Rep #: [id number] : 1950 68 From: Fish Torres MD Attending Dr: Hong Parham DO Status: ADM IN Ordering Dr: Damaris Harrison MD Date: 03/23/19 Location: ICU Sex: M C Admitted: 03/23/19 Reason For Study: Arrhythmia Procedure This was a 2D Doppler, Color Flow transthoracic echocardiogram. Contrast injection was performed. The study was technically difficult. Exam performed portable in ICU/CCU. Left Ventricle Normal LV size. The estimated ejection fraction is 53 %. Left ventricular systolic function is lower limits of normal. Stage 2 diastolic dysfunction. Infero-Basal: Hypokinetic. Right Ventricle Normal RV size. Normal systolic function. Atria The left atrium is moderately enlarged. Normal right atrium. Mitral Valve Normal mitral valve. Tricuspid Valve Normal tricuspid valve. Aortic Valve Trisinus/trileaflet aortic valve. Mild focal aortic valve thickening. Pulmonic Valve Normal pulmonic valve. Great Vessels Mildly dilated aortic root. Calcified aortic root. The pulmonary artery is normal size. Normal inferior vena cava. Pericardium/Pleural No pericardial effusion. Medication Diluted definity 3ml given slow IV push to enhance endocardial definition. MMode/2D Measurements AND Calculations LVIDd: 5.3 cm IVSd: 1.0 cm Ao root diam: 4.0 cm LVIDs: 3.9 cm LVPWd: 2.0 cm LA dimension: 3.9 cm FS: 27.6 % LAV(MOD-bp): 105.3 ml LVAd ap4: 40.7 cm2 SV(MOD-sp4): 87.2 ml LAV(MOD-bp) Indexed: 44.6 ml/m2 EDV(MOD-sp4): 168.2 ml LAV(MOD-sp2): 100.6 ml EDV(sp4-el): 177.7 ml LAV(MOD-sp4): 105.2 ml LVAs ap4: 24.5 cm2 ESV(MOD-sp4): 80.9 ml ESV(sp4-el): 78.3 ml EF(MOD-sp4): 51.9 % EF(sp4-el): 55.9 % SV(sp4-el): 99.4 ml LA A4 area: 29.2 cm2 RA A4 area: 16.0 cm2 Time Measurements MV dec time: 0.19 sec Doppler Measurements AND Calculations MV E max di: 110.9 cm/sec Lat Peak E' Di: 8.5 cm/sec Med Peak E' Di: 6.3 cm/sec MV A max di: 85.0 cm/sec E/E' lat: 13.0 E/E' med: 17.7 MV E/A: 1.3 MV V2 max: 115.4 cm/sec MV P1/2t max di: 116.1 cm/sec Ao V2 max: 140.7 cm/sec MV max P.3 mmHg MV P1/2t: 73.8 msec Ao max P.9 mmHg MV V2 mean: 58.5 cm/sec MV mean P.7 mmHg MV dec slope: 460.6 cm/sec2 MV V2 VTI: 25.4 cm MVA(P1/2t): 3.0 cm2 LV V1 max: 113.1 cm/sec MR max di: 486.6 cm/sec PA V2 max: 57.4 cm/sec LV V1 max P.1 mmHg MR max P.7 mmHg MR mean di: 388.6 cm/sec MR mean P.7 mmHg MR VTI: 202.4 cm TR max di: 261.1 cm/sec TR max P.3 mmHg Interpretation Summary Normal LV size. The estimated ejection fraction is 53 %. Left ventricular systolic function is lower limits of normal. Stage 2 diastolic dysfunction. Contrast injection was performed. Recent Labs 03/26/19 0925 03/26/19 0220 03/25/19 1930 HBA1C -- -- 6.7* RBC -- 4.18* 4.43* WBC -- 10.20* 11.29* HB -- 14.1 15.0 HCT -- 40.6 42.1 PLT -- 218 231 INR -- -- 1.04 APTT 54.7* 33.6* 25.5 NA -- 141 138 K -- 3.5 3.2* CHLOR -- 110* 109* CO2 -- 27 24 BUN -- 10 11 CREAT -- 0.82 0.80 GLUC -- 110* 101* CA -- 8.4* 8.8 MG -- -- 1.8 P -- -- 2.0* TPROT -- 6.0* -- TBILI -- 0.4 -- ALKPHOS -- 59 -- ALT -- 29 -- AST -- 14* -- ANION -- 8 8 Assessment/Plan NSTEMI -S/p acute KS in 10/2017 with HAYDEN x 2 to RCA -continue asa, statin, and bb -continue w/u for cabg with Dr. Macias next week Left subclavian stenosis -Vascular on consult -appreciate recs DM2 -new finding -Will consult endocrine if not diet controlled HTN -continue bb, acei HLD -continue statin Tobacco use disorder -encourage cessation Planned in collaboration with Dr. Macias. Tests/Labs Ordered: 1. Chest CT Scan 2. Urinalysis 3. MRSA 4. Carotid US These findings will be communicated back to the requesting provider electronically. SIGNATURE: Shawna Marvin PA-C PATIENT NAME: Rigo Diaz DATE: March 26, 2019 TIME: 3:17 PM PAGER/CONTACT #:[phone] Attending Note I have personally performed a face to face assessment of the patient and have reviewed the PA/DIRECTOR DIABETES note. My ellis findings include: Assessment/Plan are 68 year old man admitted with VT/NSTEMI found to have severe MV CAD with normal LV function in setting of tobacco use, COPD, DM, HTN, HLD. He is found to have left subclavian subtotal occlusion. Recommend MV CABG after DAPT washout. The risks, benefits, and anticipated outcomes of the procedure; the risks and benefits of the alternatives to the procedure; and the roles and tasks of the personnel to be involved were discussed with the patient and he consents to the procedure and agrees to proceed. Given left subclavian stenosis, arterial line will be placed on the right and HUIZAR harvested as free graft. Colt Macias MD Other additions or changes: None Signature: Colt Macias MD Date: 04/04/2019 Time: 3:12 PM [facility] CONSULT HNO ID: [id number] Author: Alka Hatch Service: Vascular Surgery Author Type: Resident Type: Consults Filed: 03/26/2019 6:14 PM Note Text: Attestation signed by ySdnee Weems at 03/27/2019 9:22 AM I saw and evaluated the patient. Discussed with the resident and agree with resident's findings and plan as documented in the resident's note. See prior note from me yesterday. Awaiting imaging. Sydnee Weems MD CONSULT: Vascular Surgery SERVICE SERVICE DATE: 03/26/2019 SERVICE TIME: 6:05 PM REASON FOR CONSULT: L Subclavian stenosis REQUESTING PHYSICIAN: Dr. Macias PRIMARY CARE PHYSICIAN: Carol Mckee MD Subjective Mr. Diaz is a 68 year old male with PMH s/f: CAD s/p inferior HAYDNE x2 (10/2017), HTN, HLD, DM2, active tobacco use (was smoking prior to admission), Left subclavian artery stenosis, GERD - admitted from [facility] for CAD requring CABG. Patient initially presented to [facility] with diaphoresis, palpitations, and dizziness/lightheaded ness. He was taken to [facility] by EMS 03/23 and found to be in Vtach. He received one shock and and was bolused with amiodarone at which point he returned to [facility]. He underwent cardiac cath on Monday morning (03/25/19) which demonstrated multivessel CAD. Patient was transported to [facility] for CTS assessment. Vascular surgery is consulted regarding patient's history of Left subclavian stenosis in setting of plans for CABG next week. Patient reports that he has been told many times before by his PCP that he has Left subclavian stenosis. He denies any recent workup or imaging. Denies any persistent symptoms, but states that sometimes he will experience numbness and tingling in his left hand with prolonged use. Denies headaches, vision changes or focal deficit. 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 - PAST SURGICAL HISTORY OF 2002 herniorrhaphy left inguinal - PAST SURGICAL HISTORY OF 1963 elbow surgery bone chips - REMOVE CATARACT, INSERT LENS,EX 2010 OD - REMOVE CATARACT, INSERT LENS,EX OS 07/23/12 OS - TRABECULECTOMY WITH SCARRING 2010 OD FAMILY HISTORY Problem Relation Age of Onset - Emphysema Father - No Ocular Disease Father - Coronary Artery Disease Mother - No Ocular Disease Mother - Macular Degen Other Social History Tobacco Use - Smoking status: Current Every Day Smoker Packs/day: 1.00 Years: 50.00 Pack years: 50.00 Types: Cigarettes - Smokeless tobacco: Never Used Substance Use Topics - Alcohol use: No - Drug use: No Medications Prior to Admission: ALPHAGAN P 0.1 % drop USE 1 DROP IN THE LEFT EYE TWICE A DAY Disp: 15 mL Rfl: 0 latanoprost (XALATAN) 0.005 % ophthalmic solution USE 1 DROP IN THE LEFT EYE DAILY AT BEDTIME, DISCARD AFTER 42 DAYS Disp: 2.5 mL Rfl: 0 lisinopril 10 mg ORAL tablet Take 1 tablet by mouth once daily. Disp: Rfl: 0 simvastatin (ZOCOR) 40 mg ORAL tablet Take 1 tablet by mouth daily at bedtime. Disp: Rfl: 0 omega-3 fatty acids 1,000 mg ORAL Cap Take 1 capsule by mouth twice daily. Disp: Rfl: 0 METOPROLOL 50 MG TAB Take one(1) tablet two(2) times daily. Disp: 60 Rfl: 5 multivitamins w-minerals/lut(CENTRU M SILVER TAB) Take one(1) tablet daily. Disp: Rfl: 0 niacin(NIASPAN 500 MG TAB) Take one(1) tablet daily Disp: Rfl: 0 aspirin(ECOTRIN LOW STRENGTH 81 MG TAB) Take one(1) tablet daily. Disp: Rfl: 0 IBUPROFEN 200 MG TAB as necessary taking 9802-0286 mg daily Disp: Rfl: 0 Current Facility-Administered Medications Medication Dose Route Frequency - atorvastatin 40 mg tab(s) (LIPITOR) 40 mg ORAL AT BEDTIME - metoprolol tartrate (short acting) 25 mg tab(s) (LOPRESSOR) 25 mg ORAL BID - latanoprost 0.005 % 1 Drop (XALATAN) 1 Drop BOTH EYES BID (0600/2100) - potassium chloride ER 20-40 mEq tab(s) (K-DUR, KLOR-CON) 20-40 mEq ORAL/FEEDING TUBE PRN Or - potassium chloride iv piggyback 20 mEq/100 mL 20 mEq INTRAVENOUS PRN - magnesium sulfate in water 2 g in sterile water 50 ml 2 g INTRAVENOUS PRN - sodium phosphate 45 mmol in NaCl 0.9% 250 mL 45 mmol INTRAVENOUS PRN - calcium gluconate 4 g in NaCl 0.9% 250 mL 4 g INTRAVENOUS PRN - dextrose 40 % 15 g 15 g ORAL PRN Or - glucagon 1 mg injection (GLUCAGEN) 1 mg INTRAMUSCULAR PRN Or - dextrose 50 % 12.5 g injection 12.5 g INTRAVENOUS PRN - insulin lispro pen (rapid acting) (HumaLOG KWIKPEN) SUBCUTANEOUS w MEALS - heparin iv infusion (LOW DOSE ACS/NOMOGRAM) 25,000 units in NaCl 0.45% 250 mL PREMIX 0-3,000 Units/hr INTRAVENOUS CONTINUOUS And - heparin RATE CHANGE bolus 1,000-4,000 Units for subtherapeutic aptt results 1,000-4,000 Units INTRAVENOUS PRN - brimonidine 0.2 % 1 Drop (ALPHAGAN) 1 Drop LEFT EYE BID - amiodarone 360 mg in D5W 200 mL (NEXTERONE) 0.5 mg/min INTRAVENOUS CONTINUOUS - ALPRAZolam 0.5 mg tab(s) (XANAX) 0.5 mg ORAL HS PRN - aspirin 81 mg chewable tab(s) 81 mg ORAL DAILY Allergies As of Date: 03/25/2019 (No Known Allergies) Fully Assessed 03/25/2019 COMPLETE REVIEW OF SYSTEMS: See HPI for pertinent ROS Objective PHYSICAL EXAM: Physical Exam Performed: GENERAL: Alert, no distress, cooperative SKIN: Skin color, texture, turgor normal. No rashes or lesions. HEAD/SINUSES: No significant findings LUNGS: no respiratory distress on RA CARDIAC: reg rate ABDOMEN: Normal abdominal exam EXTREMITIES: No ulcers, palpable radial pulses bilaterally, MSI- equal/bilateral muscle strength NEURO: Cranial nerves II-XII intact BP 123/81 Pulse 75 Temp (Src) 98.4 (Temporal) Resp 21 Ht 6' 4 (1.93m) Wt 233 lb 7.5 oz (105.9kg) SpO2 98% BMI 28.43 kg/(m2). O2 Therapy: Room Air DATA: Diagnostic tests reviewed for today's visit: Most recent labs and imaging results. CBC, Coags, BMP, Mg, Phos Recent Labs 03/26/19 0903/26/1921903/25/19 1930 WBC -- 10.20* 11.29* HB -- 14.1 15.0 HCT -- 40.6 42.1 PLT -- 218 231 INR -- -- 1.04 APTT 54.7* 33.6* 25.5 NA -- 141 138 K -- 3.5 3.2* CHLOR -- 110* 109* CO2 -- 27 24 BUN -- 10 11 CREAT -- 0.82 0.80 GLUC -- 110* 101* CA -- 8.4* 8.8 MG -- -- 1.8 P -- -- 2.0* Liver Function, Amylase, AND Lipase Recent Labs 03/26/19219 TPROT 6.0* ALB 3.1* ALT 29 AST 14* ALKPHOS 59 TBILI 0.4 Impression/Recommenda tions 68 yo M with multivessel CAD -requiring CABG. Vascular surgery on consult for L subclavian stenosis Will obtain BUE PVR Will obtain CTA HNC to further evaluate subclavian stenosis Medical management per primary D/w Dr. eWems Vascular AND Thoracic Surgery Service Pager: For questions or concerns Mon-Fri 6a-5p please page [phone]. After 5pm and on Weekends and Holidays, please page [phone] if in ICU or [phone] if on RNF. SIGNATURE: Alka Hatch MD PATIENT NAME: Rigo Diaz DATE: March 26, 2019 TIME: 2:14 PM PAGER: [facility] CONSULT PROGon 03-26-2019 CONSULT PROG HNO ID: [id number] Author: Janes Reyes CNP Service: Cardiac Surgery Author Type: Nurse Practitioner Type: Consult Progress Note Filed: 04/02/2019 7:10 AM Note Text: CTVS Surgery Pre-Op Open Heart Check List Patient Info: Rigo Diaz 1950 68 year old Patient has no known allergies. HPI: Mr. Diaz is a 68 y/o male with past medical history of acute myocardial infarction requiring HAYDEN x 2 to RCA in October of 2017 (has been on Brilinta since), recent sustained ventricular tachycardia requiring defibrillation, recent NSTEMI, HTN, HLD, DM2, left subclavian artery stenosis (needs to be evaluated prior to CABG), GERD, and current tobacco smoker who presented to [place] ED via EMS on 03/23/2019 with chest pain. According to EMR, the EMS team found him in vtach, he converted after 1 shock and amiodarone bolus was initiated. He underwent left heart cath which revealed multivessel CAD. Pt was then transfered to [facility] on 03/25 for CTS assessment. Here he remains in NSR and pain free in CVICU on heparin and amio drips. He will need additional workup prior to CABG as well as Brilinta washout x 7 days prior to CABG. Last set of vitals: BP 123/81 Pulse 75 Temp 36.5 ?C (97.7 ?F) (Temporal) Resp 21 Ht 193 cm (6' 4) Wt 105.9 kg (233 lb 7.5 oz) SpO2 98% BMI 28.42 kg/m? Wt: 109.3 kg (241 lb) BMI: 28.46 kg/(m2) Procedure: CABG Diagnosis: NSTEMI Date of Procedure: 04/02/2019 STS Risk Score: 1.754% CARE TEAM: Cardiac Surgeon: Dr. Macias [employer] Leader: Dr. Steen PCP: Other Providers: Pre-Op Testing: LABS: CHEMISTRY Troponin I (ng/ml) Date Value 03/26/2019 0.028 03/25/2019 0.027 03/25/2019 0.025 Sodium (mEq/L) Date Value 03/27/2019 156 03/26/2019 141 03/25/2019 138 Chloride (mEq/L) Date Value 03/27/2019 117 03/26/2019 110 03/25/2019 109 CO2 (mEq/L) Date Value 03/27/2019 25 03/26/2019 27 03/25/2019 24 BUN (mg/dL) Date Value 03/27/2019 12 03/26/2019 10 03/25/2019 11 Creatinine (mg/dL) Date Value 03/27/2019 0.85 03/26/2019 0.82 03/25/2019 0.80 Glucose (mg/dL) Date Value 03/27/2019 119 03/26/2019 110 03/25/2019 101 Magnesium (mg/dL) Date Value 03/25/2019 1.8 Phosphorus (mg/dL) Date Value 03/25/2019 2.0 Protein, Total (g/dL) Date Value 03/27/2019 5.7 03/26/2019 6.0 Calcium (mg/dL) Date Value 03/27/2019 8.6 03/26/2019 8.4 03/25/2019 8.8 Bilirubin, Total (mg/dL) Date Value 03/27/2019 0.3 03/26/2019 0.4 Alkaline Phosphatase (U/L) Date Value 03/27/2019 58 03/26/2019 59 ALT (U/L) Date Value 03/27/2019 28 03/26/2019 29 AST (U/L) Date Value 03/27/2019 19 03/26/2019 14 Anion Gap (no units) Date Value 03/27/2019 17 03/26/2019 8 03/25/2019 8 { Lipid Panel No results found for: CHOL, HDL, LDL, TG NT Pro BNP No results found for: PBNP ENDOCRINE Hemoglobin A1C (%) Date Value 03/25/2019 6.7 No results found for: TSHREFL TSH: 1.41 HEMATOLOGY RBC (mil/cmm) Date Value 03/27/2019 4.07 03/26/2019 4.18 03/25/2019 4.43 HGB (g/dL) Date Value 03/27/2019 13.9 03/26/2019 14.1 03/25/2019 15.0 Hematocrit (%) Date Value 03/27/2019 40.2 03/26/2019 40.6 03/25/2019 42.1 WBC (thou/cmm) Date Value 03/27/2019 9.46 03/26/2019 10.20 03/25/2019 11.29 Platelet Count (thou/cmm) Date Value 03/27/2019 247 03/26/2019 218 03/25/2019 231 COAGULATION Prothrombin Time Date Value Ref Range Status 03/25/2019 11.2 9.7 - 13.0 sec Final INR Date Value Ref Range Status 03/25/2019 1.04 0.90 - 1.30 Final Comment: Vitamin K Antagonist (VKA) Therapeutic Range: INR 2 to 3 (Target INR of 2.5) Note: For patients treated with VKA drugs, such as warfarin, the [employer] 2012 Guideline recommends a therapeutic INR range of 2 to 3 (target INR of 2.5). This recommendation includes high-risk patients with antiphospholipid syndrome with previous arterial or venous thromboembolism, current-generation mechanical or bioprosthetic aortic heart valve replacement. VKA Therapeutic Range for some Mechanical Valve Replacement: INR 2.5 to 3.5 (Target INR of 3) Note: Patients with mechanical aortic valve replacement and additional risk factors for thromboembolic events (atrial fibrillation, previous thromboembolism, LV dysfunction, hypercoagulable conditions) or an older generation mechanical AVR (i.e., ball in-Cage) or any mechanical MVR should have a INR therapeutic range of 2.5 to 3.5 target INR of 3). Ellen COYLE, et al. Chest 2012; 141:7S-47S Gracia HOPKINS et al. [facility] 2017; 70: 252-289 Anemia Evaluation: Anemic: No Accept Blood: Yes Blood Conservation Committee: No Ferritin: N/A FE+TIBC: N/A Fe Sat: N/A FOBT: N/A Anemia Treatment: N/A UA No results found for: UPH, SPGR, UGLUC, UBILI, UKET, UHB, UPROT, UROBILINOGEN, NITRITES, LEUKEST, UWBC, BACTERIAUR Type AND Screen: A+ negative Ab screen RBC Cross match: 2 units DOS MRSA Screen: negative Chronic Lung Disease: Yes FEVI: . DLCO: ABG: CANDY: IMAGING/PROCEDURES CXR: No acute radiographic abnormality. Cardiac Catheterization: Severe multivessel disease with ostial left main. No official reading 2D Echo: FINDINGS: ? LEFT VENTRICLE The left ventricle is normal in size. There is mild left ventricular hypertrophy. Left ventricular systolic function is normal. Grade II left ventricular diastolic dysfunction. Mitral annular lateral E/e': 12.9. Mitral annular septal E/e': 15.1. Wall Motion: All scored segments are normal. ? ? RIGHT VENTRICLE The right ventricle is borderline normal in size. Right ventricular systolic function is normal. RV systolic tissue Doppler velocity ?is 16.8 cm/s. Tricuspid annular displacement is 3.3 cm. Estimated right ventricular systolic pressure is 37 mmHg consistent with mild pulmonary hypertension. Estimated right atrial pressure is 8 mmHg based on IVC assessment. ? LEFT ATRIUM The left atrial cavity is severely dilated. ? RIGHT ATRIUM The right atrial cavity is mildly dilated. Inferior Vena Cava: The inferior vena cava appears dilated measuring 2.6 cm. The vessel decreases greater than 50 percent with inspiration. MITRAL VALVE There is moderate mitral annular calcification observed posterior. There is no mitral stenosis. There is trace mitral valve regurgitation. There is mild thickening. The pressure half time is 88 msec. The peak mitral E/A ratio is 1.23. The average mitral E/e' ratio is 14.0. The mitral flow deceleration time is 303 msec. ? TRICUSPID VALVE The tricuspid valve leaflets are structurally normal. There is no tricuspid stenosis. There is trace (trace - 1+) tricuspid valve regurgitation. ? AORTIC VALVE There is mild aortic valve stenosis. There is no aortic valve regurgitation. Tricuspid aortic valve. There is mild thickening. There is mild calcification. The ?peak gradient is 15 mmHg (peak velocity = 195.0 cm/s). The mean gradient is 9 mmHg. The LVOT mean velocity is 53.4 cm/s. The LVOT diameter is 2.5 cm. The aortic ?VTI is 50.3 cm. The mean velocity in the aortic valve is 146.0 cm/s. The dimensionless valve index is 0.39. AV area is 1.92 cm? (0.81 cm?/m?) by continuity, VTI. The LVOT stroke volume index is 41 ml/m?. ? PULMONIC VALVE The pulmonic valve cusps are structurally normal. There is no pulmonic stenosis. There is trace (trace - 1+) pulmonic valve regurgitation. ? AORTA The visualized aorta is borderline dilated. Measurements - Aortic valve annulus 2.5 cm. Sinus 3.8 cm. Sinotubular junction 3.3 ?cm. Mid ascending aorta 3.9 cm. PULMONARY ARTERIES The pulmonary arteries are unseen or not interrogated. ? PERICARDIUM There is no pericardial effusion. ? CONCLUSIONS: - Technically difficult exam due to body habitus. - Exam indication: Evaluation of ventricular function following ACS - The left ventricle is normal in size. There is mild left ventricular hypertrophy. Left ventricular systolic function is normal. EF = 60 ? 5% (2D biplane) Grade II left ventricular diastolic dysfunction. - The right ventricle is normal in size. Right ventricular systolic function is normal. - No significant valve disease: Mild , Trivial MR, Trivial TR, Trivial PI ? - The visualized aorta is borderline dilated with a maximal dimension of 3.9 cm. - The patient has not had a prior CC echocardiographic exam for comparison. EF: 60% 5 Meter Walk Test: Not done OPTIONAL TESTINGS: Carotid U/S: Mild bilateral plaque formation at the origins of the internal carotid artery. By velocity criteria this creates 20-39% stenosis of the internal carotid arteries bilaterally. RIGHT SIDE Internal carotid artery: 20-39% stenosis. Vertebral artery: Patent and antegrade flow noted. LEFT SIDE Internal carotid artery: 20-39% stenosis. Vertebral artery: Patent and antegrade flow noted. Upper EXT MINGO: IMPRESSION Pressures and waveforms in the right upper extremity appear to be essentially normal with sharp upstroke prompt outstripping presence of a dicrotic notch being noted. There is dampening of the waveforms at the upper arm and forearm level on the left compared to the right with a greater than 50 mm pressure difference between the right and left arms. This would be indicative of proximal stenosis or occlusion in the axillary subclavian system. This is considered hemodynamically significant by noninvasive criteria. Palmar Arch: N/A Vein Mapping: N/A Dental Clearance: N/A CT Chest/CTA NECK W IVCON: NECK: Soft tissues: ? The soft tissue planes are maintained throughout. ?No evidence of a soft tissue mass in the neck or superior mediastinum. ?Scattered mildly prominent lymph nodes without evidence of lymphadenopathy by size criteria. ?Circumscribed 1.2 x 1.0 cm subcutaneous nodule in the left posterior cervicothoracic soft tissues, likely a sebaceous cyst. Spine: Minimal grade 1 anterolisthesis of C2 on C3, C7 on T1, and T2 on T3. ?Mild to moderate degenerative changes are present. Lung apices: ? Partially imaged 1 cm nodule in the superior segment of the right lower lobe (series 8, image 140). ?Mild centrilobular emphysematous changes. CT ARTERIOGRAM: Extracranial Circulation: Aortic Arch: There is a normal branching pattern from the aortic arch. Extensive atherosclerotic plaque within the left subclavian artery completely occludes the vessel lumen with reconstitution of intraluminal contrast just proximal to the origin of the left internal thoracic artery and left vertebral artery. Carotid Stenosis: Right Common: ?No significant stenosis. Right Internal Carotid ?Plaque: ?Mild. Right Internal Carotid Stenosis (% by NASCET Criteria): ?0% Left Common: ?No significant stenosis. Left Internal Carotid Plaque: ?Mild Left Internal Carotid Stenosis (% by NASCET Criteria): ?0% Cervical Vertebral Arteries: Patency: ?Bilateral Dominance: ?Codominant Intracranial Circulation: Partially imaged portions only: Anterior Circulation: The intracranial ICAs are imaged at the level of the proximal cavernous segment and appear patent. Vertebrobasilar Circulation: Patent intracranial vertebral arteries and proximal basilar artery. Medications: Blood thinners: Patient is on following blood thinners: Aspirin -Yes, dose 81 mg, stopped No, date:N/A Was also on nursing home Brilinta, Last dose 1 Rep Max 65 lbs, Occasional (75% max) 49 lbs, Frequent (45% max) 29 lbs, Constant (35% max) 23 lbs; Comments: >5 days, LPTA Beta Svitlana: Last dose of beta svitlana taken: continue daily STEVE/ARB: Stop 24 hours preop will stop when DOS determined Last dose date 03/31 Steroids: No Chronic Immunosuppressive drugs: No Implantable Device: No Turned off date: N/A Perioperative Transfusion risk STS Risk Factors: Advanced age Yes Preoperative anemia No Non-CABG surgery No Preoperative anticoagulation No Clotting abnormalities No Female gender No Small body habitus No Renal insufficiency Yes: EST GFR: 50; CRCL: 54.37 IDDM Yes Sepsis No Liver disease No Post-operative Wound Healing - Vest recommended Yes (Yes to any one of the below requires a post thorax vest) Risk Factors: Obesity Yes DM Yes Renal Dx No COPD Yes Bilateral GLORIA No CONSIDER PRAVENA: No CLEARANCES NEEDED Pulmonary: No Hematology: No Nephrology No Vascular surgery Yes Other No Shawna Marvin PA-C Normal [facility] NURSING PROGon 03-26-2019 NURSING PROG HNO ID: [id number] Author: Harry DrakeRn) BIBI Coulter Service: Nursing Author Type: Registered Nurse Type: Nursing Progress Note Filed: 03/26/2019 12:57 PM Note Text: Dr. Macias at bedside regarding consult for cardiac surgery. Plan discussed with the patient. Consent form signed at this time. Dr. Macias aware that for the past 24 hours the blood pressure has been monitored in the left arm that has subclavian stenosis d/t access for cardiac cath was the right radial. Discussed with nursing that the blood pressures would be lower in the left, and that pressures should be assessed in both arms. See [facility] for vital signs and assessment. [facility] NURSING PROG HNO ID: [id number] Author: Harry DrakeRn) BIBI Coulter Service: Nursing Author Type: Registered Nurse Type: Nursing Progress Note Filed: 03/26/2019 10:17 AM Note Text: Sitting upright in bed. Resting and in no acute distress. Talking and texting on his cell phone. Denies chest pain/discomfort. Denies shortness of breath at rest or with conversation. Heparin and Amiodarone infusing as noted in Epic. Agree with assessment of RN orienting. [facility] PLAN OF CAREon 03-26-2019 PLAN OF CARE HNO ID: [id number] Author: Pam Khalil ([employer]) Service: Pharmacy Author Type: ? Type: Plan of Care Filed: 03/26/2019 11:38 AM Note Text: PASSENGER CONDUCTOR BEDSIDE DELIVERY SURVEY 1. Patient to use [facility] Bedside Delivery - YES Insurance Information as follows: 2. Insurance card on file - YES 3. Credit card for payment - N/A No prescriptions written to pt yet, please call pharmacy bedside delivery at [phone] or Ext [phone] once scripts are written and DC orders placed. Pam Khalil ([employer]) [facility] PROGRESSon 03-26-2019 PROGRESS HNO ID: [id number] Author: Sydnee Weems Service: Vascular Surgery Author Type: Physician Type: Progress Notes Filed: 03/26/2019 6:11 PM Note Text: I saw and evaluated the patient. Discussed with the resident and agree with resident's findings and plan as documented in the resident's note. Please see resident note for details. Briefly, pt with known history of L subclavian stenosis that is asymptomatic. Pt with observed lower BP in LUE than R. Pt with plans for CABG next week. Will get upper extremity PVR and CTA chest/neck to evaluate L subclavian. Sydnee Weems MD [facility] PROGRESS HNO ID: [id number] Author: Rigo Roland Service: Cardiovascular Medicine Author Type: Physician Type: Progress Notes Filed: 03/26/2019 3:41 PM Note Text: Cardiovascular Intensive Care Progress Note March 26, 2019 Patient Name: Rigo Diaz Patient Location: [id number]* Admission Date: 03/25/2019 Length of Stay: 1 Primary Service: Cardiovascular Intensive Care Case Background: 68 year old White male PMHx: CAD s/p HAYDEN in 10/2017, HTN, hyperlipidemia, DM type 2, left subclavian artery stenosis, GERD, and glaucoma of the right eye. He is active smoker. Presented on 03/25/2019, referred from [facility] for evaluation of CABG. On 03/23/2019, the patient had diaphoresis, palpitations, dizziness, and collapsed at home. He was rushed by EMS to [facility] and was found to have VT. Shocked once and started amiodarone loading with return of NSR. The patient had minimal troponin increase, peaked at 0.099. He had a heart cath on 03/25 which showed multivessel disease. Transferred to [facility] for CABG. Last dose of Brilinta was given on 03/25 a morning. Hosp. Course: Patient admitted to CVICU in a stable condition. Echo and left heart cath images at [place] were reviewed. Cardiothoracic surgery consulted. No current facility-administered medications on file prior to encounter. Current Outpatient Medications on File Prior to Encounter: ALPHAGAN P 0.1 % drop USE 1 DROP IN THE LEFT EYE TWICE A DAY latanoprost (XALATAN) 0.005 % ophthalmic solution USE 1 DROP IN THE LEFT EYE DAILY AT BEDTIME, DISCARD AFTER 42 DAYS lisinopril 10 mg ORAL tablet Take 1 tablet by mouth once daily. simvastatin (ZOCOR) 40 mg ORAL tablet Take 1 tablet by mouth daily at bedtime. omega-3 fatty acids 1,000 mg ORAL Cap Take 1 capsule by mouth twice daily. METOPROLOL 50 MG TAB Take one(1) tablet two(2) times daily. multivitamins w-minerals/lut(CENTRU M SILVER TAB) Take one(1) tablet daily. niacin(NIASPAN 500 MG TAB) Take one(1) tablet daily aspirin(ECOTRIN LOW STRENGTH 81 MG TAB) Take one(1) tablet daily. IBUPROFEN 200 MG TAB as necessary taking 1307-6015 mg daily Interval History for 03/26/19: Patient seen and examined in the AM. No overnight events. The patient denies chest pain or SOB. States that he feels completely fine. Review of Systems: Review of Systems Constitutional: Negative for chills, diaphoresis and fever. HENT: Negative for congestion and sore throat. Eyes: Negative for blurred vision. Respiratory: Negative for cough, shortness of breath and wheezing. Cardiovascular: Negative for chest pain, palpitations, orthopnea, leg swelling and PND. Gastrointestinal: Negative for abdominal pain, constipation, diarrhea, nausea and vomiting. Genitourinary: Negative for dysuria, frequency and urgency. Neurological: Negative for dizziness, focal weakness and headaches. BP 150/69 Pulse 75 Temp (Src) 98.4 (Temporal) Resp 18 Ht 6' 4 (1.93m) Wt 233 lb 7.5 oz (105.9kg) SpO2 98% BMI 28.43 kg/(m2). O2 Therapy: Room Air Temp (24hrs), Av.8 ?C (98.2 ?F), Min:36.5 ?C (97.7 ?F), Max:36.9 ?C (98.4 ?F) Physical Exam Constitutional: He is oriented to person, place, and time and well-developed, well-nourished, and in no distress. HENT: Head: Normocephalic and atraumatic. Mouth/Throat: No oropharyngeal exudate. Eyes: Pupils are equal, round, and reactive to light. EOM are normal. No scleral icterus. Neck: Neck supple. No JVD present. Cardiovascular: Normal heart sounds. Exam reveals no gallop and no friction rub. No murmur heard. Pulmonary/Chest: Breath sounds normal. He has no wheezes. He has no rales. Abdominal: Bowel sounds are normal. He exhibits no distension. There is no tenderness. There is no guarding. Musculoskeletal: He exhibits no edema. Lymphadenopathy: He has no cervical adenopathy. Neurological: He is alert and oriented to person, place, and time. Skin: Skin is warm and dry. He is not diaphoretic. Telemetry: sinus bradycardia in 50s, nonsustained VT (5 beats) on 03/25 at 7 - 8 PM EKG: no new ischemic changes Most recent echo: no echo on file. Echo from [place] showed EF 53%, and stage II diastolic dysfunction. IANDO: Date 03/25/19699 - 03/26/1965803/26/19699 - 03/27/19658 Shift 2025-2637 7336-9072 6032-7478 24 Hour Total 5711-6607 0401-8209 6823-8566 24 Hour Total INTAKE PO 240 360 600 480 480 PO 240 360 600 480 480 IV 141 544 685 117.2 117.2 IVPB 141 250 391 Heparin IV 100 100 26.9 26.9 Amiodarone 194 194 90.3 90.3 Shift Total 756 430 0851 597.2 597.2 OUTPUT Urine 867 616 4286 550 550 Void (ml) 854 680 4294 550 550 Urine Not Saved. 1 x 1 x # of BMs Number of BMs 1 x 1 x Shift Total 551 110 4602 550 550 Weight (kg) 105.9 105.9 105.9 105.9 105.9 105.9 105.9 Labs AND Imaging reviewed: DATA: BLOOD GAS: No results for input(s): VPH, VPC2, VPO2C, RESPHCO3, BASEX, [id number], PH, PCO2, RESPHCO3, BASEX, [id number] in the last 168 hours. Invalid input(s): PO2C CBC: Recent Labs 03/26/1921903/25/191929 WBC 10.20* 11.29* HB 14.1 15.0 HCT 40.6 42.1 PLT 218 231 MCV 97.1* 95.0 COAG: Recent Labs 03/26/1992403/26/1921903/25/191929 APTT 54.7* 33.6* 25.5 INR -- -- 1.04 BMP: Recent Labs 03/26/1921903/25/191929 GLUC 110* 101* NA 141 138 K 3.5 3.2* CHLOR 110* 109* CO2 27 24 ANION 8 8 BUN 10 11 CREAT 0.82 0.80 CHEM: Recent Labs 03/26/1921903/25/191929 ALB 3.1* -- TPROT 6.0* -- CA 8.4* 8.8 MG -- 1.8 HEPATIC: Recent Labs 03/26/19219 ALKPHOS 59 ALT 29 AST 14* TBILI 0.4 URINALYSIS: No results for input(s): PH, SPGR, UGLUC, UBILI, UKET, UHB, UPROT, UROBIL, UWBC, SSA in the last 168 hours. Invalid input(s): NITR CARDIAC: No results for input(s): CKTEST, CKMB, CKMBP, TROPT, PBNP in the last 168 hours. Lipid Panel: No results found for: CHOL, HDL, LDL, TG Current active therapies: Current Facility-Administered Medications Medication Dose Route Frequency - atorvastatin 40 mg tab(s) (LIPITOR) 40 mg ORAL AT BEDTIME - metoprolol tartrate (short acting) 25 mg tab(s) (LOPRESSOR) 25 mg ORAL BID - latanoprost 0.005 % 1 Drop (XALATAN) 1 Drop BOTH EYES BID (0600/2100) - potassium chloride ER 20-40 mEq tab(s) (K-DUR, KLOR-CON) 20-40 mEq ORAL/FEEDING TUBE PRN Or - potassium chloride iv piggyback 20 mEq/100 mL 20 mEq INTRAVENOUS PRN - magnesium sulfate in water 2 g in sterile water 50 ml 2 g INTRAVENOUS PRN - sodium phosphate 45 mmol in NaCl 0.9% 250 mL 45 mmol INTRAVENOUS PRN - calcium gluconate 4 g in NaCl 0.9% 250 mL 4 g INTRAVENOUS PRN - dextrose 40 % 15 g 15 g ORAL PRN Or - glucagon 1 mg injection (GLUCAGEN) 1 mg INTRAMUSCULAR PRN Or - dextrose 50 % 12.5 g injection 12.5 g INTRAVENOUS PRN - insulin lispro pen (rapid acting) (HumaLOG KWIKPEN) SUBCUTANEOUS w MEALS - heparin iv infusion (LOW DOSE ACS/NOMOGRAM) 25,000 units in NaCl 0.45% 250 mL PREMIX 0-3,000 Units/hr INTRAVENOUS CONTINUOUS And - heparin RATE CHANGE bolus 1,000-4,000 Units for subtherapeutic aptt results 1,000-4,000 Units INTRAVENOUS PRN - brimonidine 0.2 % 1 Drop (ALPHAGAN) 1 Drop LEFT EYE BID - amiodarone 360 mg in D5W 200 mL (NEXTERONE) 0.5 mg/min INTRAVENOUS CONTINUOUS - ALPRAZolam 0.5 mg tab(s) (XANAX) 0.5 mg ORAL HS PRN - aspirin 81 mg chewable tab(s) 81 mg ORAL DAILY Assessment/Plan Reviewed in its entirety and amended as appropriate on 03/26/19 ASSESSMENT ANDPLAN Coronary Artery Disease s/p HAYDEN in 10/2107 - Multivessel Disease ? The patient presented to [facility] with VT that required a shock ? Troponin peaked at 0.099 ? Echo images reviewed and didn't show significant WMA ? Heart cath images reviewed and showed multivessel disease which requires CABG ? Cardiothoracic surgery consulted ? Likely, the surgery will be delayed for 4 more days due to recent use of Brilinta ? Last dose of Brilinta on 03/25/2019 at morning ? ASA, statin, lopressor, lisinopril, and heparin drip Ventricular Tachycardia ? Patient presented to [facility] with VT that required a shock ? Currently in normal sinus rhythm ? Tele doesn't show frequent tachy arrhythmias ? Monitor and replace electrolytes ? Amiodarone IV and lopressor Hypertension ? BP is running high ? Increased lopressor dose to his home dose, 50 mg bid ? Increased lisinopril dose to his home dose, 10 mg qd ? Monitor BP from both arms due to left subclavian artery stenosis Hyperlipidemia ? Continue statin DM ? The patient denies history of DM ? A1C is 6.7 ? Blood glucose well controlled for now ? Outpatient management with PCP Tobacco Use Disorder ? Discussed the need to quit smoking Left Subclavian Artery Stenosis ? No signs of left arm ischemia ? Stable ? Measure BP from both arms. Left arm is expected to give false lower numbers Glaucoma of Right Eye ? Continue home eye drops and medications Signed: Harmony Recio DO PGY1 Pager: [phone] Date: March 26, 2019 Time: 3:30 PM I saw and evaluated the patient. Discussed with the resident and agree with resident's findings and plan as documented in the resident's note. Rigo Roland MD Recommendations are not finalized until co-signed by Staff physician. Normal [facility] HISTORY PHYSICALon HISTORY PHYSICAL HNO ID: [id number] Author: Rigo Roland Service: Cardiovascular Medicine Author Type: Physician Type: HANDP Filed: 03/26/2019 3:02 PM Note Text: CRITICAL CARE CONSULT NOTE SERVICE DATE: 03/25/2019 SERVICE TIME: 7:14 PM REASON FOR CONSULT: Inferior STEMI REQUESTING PHYSICIAN: Juwan ? ADMITTING PROVIDER: Rigo Roland SERVICE DATE: 03/25/2019 SERVICE TIME: 7:14 PM Admission Date: 03/25/2019 AGE: [age] year old LOS: 0 days Subjective 68yo M h/o CAD s/p inferior HAYDEN x2 (10/2017), HTN, HLD, DM2, active tobacco use, Left subclavian artery stenosis, GERD initially presenting on 03/23/19 to [facility] with diaphoresis, palpitations, and dizziness/lightheaded ness. Patient states that he initially was on the stairs from his basement when he collapsed. He was rushed to [facility] by EMS and found to be in Vtach. He received one shock and and was bolused with amiodarone at which point he returned to [facility]. Patient had a cath on Monday morning (03/25/19) that showed multivessel CAD that required CABG. Patient was transported to [facility] for CTS assessment. He is presently on an amiodarone gtt, we will start him on heparin gtt. Patient had EKG at [place] showing NSR with occasional PVC. He is hemodynamically stable in the CVICU on tele. Objective PROBLEMS: ACTIVE PROBLEM LIST Unspecified Disorder of Skin and Subcutaneous Tissue Type II Or Unspecified Type Diabetes Mellitus Without Mention of Complication, Not Stated As Uncontrolled Unspecified Essential Hypertension Other and Unspecified Hyperlipidemia Cardiac Dysrhythmia, Unspecified Tobacco Use Disorder Psychosexual Dysfunction With Inhibited Sexual Excitement Obesity, Unspecified Coronary Atherosclerosis of Unspecified Type of Vessel, [place] Or Graft Unspecified Hearing Loss Lumbago Peripheral Vascular Disease, Unspecified (Hcc) Congenital Pes Planus Djd (Degenerative Joint Disease) 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, Severe Stage Acute Myocardial Infarction (Hcc) 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 - PAST SURGICAL HISTORY OF 2002 herniorrhaphy left inguinal - PAST SURGICAL HISTORY OF 1963 elbow surgery bone chips - REMOVE CATARACT, INSERT LENS,EX 2010 OD - REMOVE CATARACT, INSERT LENS,EX OS 07/23/12 OS - TRABECULECTOMY WITH SCARRING 2010 OD Social History Socioeconomic History Marital status: Spouse name: Not on file Number of children: Not on file Years of education: Not on file Highest education level: Not on file Occupational History Not on file Social Needs Financial resource strain: Not on file Food insecurity: Worry: Not on file Inability: Not on file Transportation needs: Medical: Not on file Non-medical: Not on file Tobacco Use Smoking status: Current Every Day Smoker Packs/day: 1.00 Years: 50.00 Pack years: 50 Types: Cigarettes Smokeless tobacco: Never Used Substance and Sexual Activity Alcohol use: No Drug use: No Sexual activity: Not on file Lifestyle Physical activity: Days per week: Not on file Minutes per session: Not on file Stress: Not on file Relationships Social connections: Talks on phone: Not on file Gets together: Not on file Attends bahai service: Not on file Active member of club or organization: Not on file Attends meetings of clubs or organizations: Not on file Relationship status: Not on file Intimate partner violence: Fear of current or ex partner: Not on file Emotionally abused: Not on file Physically abused: Not on file Forced sexual activity: Not on file Other Topics Concerns: Not on file Social History Narrative Not on file VITAL SIGNS (last 24hrs min/max): Temp Av.9 ?C (98.4 ?F) Min: 36.9 ?C (98.4 ?F) Max: 36.9 ?C (98.4 ?F) Pulse Av Min: 81 Max: 81 No data recorded Cuff BP Min: 132/86 Max: 132/86 Pain Level: 0 Vital signs reviewed. BP 132/86 Pulse 81 Temp (Src) 98.4 (Temporal) Resp 20 Ht 6' 4 (1.93m) Wt 233 lb 7.5 oz (105.9kg) SpO2 100% BMI 28.43 kg/(m2). O2 Therapy: Room Air Temp (24hrs), Av.9 ?C (98.4 ?F), Min:36.9 ?C (98.4 ?F), Max:36.9 ?C (98.4 ?F) NET FLUID BALANCE Intake/Output Summary (Last 24 hours) at 03/25/2019 1914 Last data filed at 03/25/2019 1800 Gross per 24 hour Intake ? Output 300 ml Net -300 ml MEDICATIONS Current Facility-Administered Medications Medication Dose Route Frequency - atorvastatin 40 mg tab(s) (LIPITOR) 40 mg ORAL AT BEDTIME - lisinopril 5 mg tab(s) (ZESTRIL, PRINIVIL) 5 mg ORAL DAILY - metoprolol tartrate (short acting) 25 mg tab(s) (LOPRESSOR) 25 mg ORAL BID - brimonidine 0.1 % 1 Drop (ALPHAGAN P) 1 Drop BOTH EYES BID () - latanoprost 0.005 % 1 Drop (XALATAN) 1 Drop BOTH EYES BID () - potassium chloride ER 20-40 mEq tab(s) (K-DUR, KLOR-CON) 20-40 mEq ORAL/FEEDING TUBE PRN Or - potassium chloride iv piggyback 20 mEq/100 mL 20 mEq INTRAVENOUS PRN - magnesium sulfate in water 2 g in sterile water 50 ml 2 g INTRAVENOUS PRN - sodium phosphate 45 mmol in NaCl 0.9% 250 mL 45 mmol INTRAVENOUS PRN - calcium gluconate 4 g in NaCl 0.9% 250 mL 4 g INTRAVENOUS PRN - dextrose 40 % 15 g 15 g ORAL PRN Or - glucagon 1 mg injection (GLUCAGEN) 1 mg INTRAMUSCULAR PRN Or - dextrose 50 % 12.5 g injection 12.5 g INTRAVENOUS PRN - insulin lispro pen (rapid acting) (HumaLOG KWIKPEN) SUBCUTANEOUS w MEALS - heparin iv infusion (LOW DOSE ACS/NOMOGRAM) 25,000 units in NaCl 0.45% 250 mL PREMIX 0-3,000 Units/hr INTRAVENOUS CONTINUOUS And - heparin RATE CHANGE bolus 1,000-4,000 Units for subtherapeutic aptt results 1,000-4,000 Units INTRAVENOUS PRN - heparin nomogram - NO INITIAL BOLUS OTHER ONCE (heparin bolus) Lines, Drains, and Airways Line Peripheral 03/25/19 1859 Admission to Hospital Short Right Antecubital 20 Gauge less than 1 day PHYSICAL EXAM PERFORMED: Elderly NAD COPD habitus Mild bruising no rash Cardiovascular: Regular rhythm, no M/R/G apex nonpalp no RV lift distant heart sounds Respiratory: diminished breath sounds no access m use or wheeze R radial cath site clean Abdomen: Soft and Nontender no hepatomegaly Extremities: Edema- No edema, peripheral pulses intact Neurologic: Awake, oriented, Alert, Follows commands and Moving all extremities Pleasant affect normal speech Neck bilat caroti upstr 2+; no bruit; no obvious JVD Pupils equal eyelids normal Respiratory/Nursing Documentation: O2 Therapy: Room Air (03/25/19 1800) HEMODYNAMIC DATA: Reviewed NUTRITION: Enteral Feeds: No Regular diet DATA: Diagnostic tests reviewed for today's visit, films/specimens were personally reviewed by me: Most recent labs and imaging results. LABS: ABG: Invalid input(s): [id number] Assessment/Plan IMPRESSION: Critical Care Documentation: The patient has the following organ/system impairment(s): Inferior KS 1. Inferior KS 2/2 Multivessel CAD requiring CABG-reviewed films-agree severe 3 VD , good targets; Echo EF 55% 2. Ventricular Tachycardia 2/2 #1 s/p defibrillation on amio gtt- likely due to ischemia from severe 3vd ; less likely scar related given good LVFx; only bdlne trop leak; will get EP input after CABG but do not think will require ICD after revasc; 3. Troponin elevation 2/2 #1 4. Hypokalemia-replete 5. DM2-on aceinhib 6. CAD s/p HAYDEN x2 in 2018 (mid and distal RCA) 7. Left subclavian artery stenosis-?needs BP R arm ; have both arms checked to document 8. HLD-high dose statin 9. GERD MMP CRITICAL CARE PLAN: -hep gtt -amio gtt -on low dose BB, ACEi -holding brilinta in setting of likely CABG, had last dose 03/25 am -ECHO shows EF 53%, stage II diastolic dysfunction -SSI -ICU monitoring -CTS consulted Discussed with staff/patient/family Time spent providing critical care services: 30 minutes excluding procedures. I saw and evaluated the patient. Discussed with the resident and agree with resident's findings and plan as documented in the resident's note. Rigo Roland MD Pager [phone] Cc time 30 min SIGNATURE: Deshawn Hemphill MD PATIENT NAME: Rigo Diaz DATE: March 25, 2019 TIME: 7:14 PM Normal [facility] HOSPon 03-25-2019 HOSP Patient:Trevin Diaz MRN: Height:6' 4(1.93 m) Weight:225 lb (102.059 kg) Outpatient Medications as of 04/12/19: lisinopril-hydrochlor othiazide (PRINZIDE,ZESTORETIC) 20-12.5 mg per tablet atorvastatin (LIPITOR) 40 mg tablet ticagrelor (BRILINTA) 90 mg tablet ALPHAGAN P 0.1 % drop latanoprost (XALATAN) 0.005 % ophthalmic solution METOPROLOL 50 MG TAB multivitamins w-minerals/lut(CENTRU M SILVER TAB) aspirin(ECOTRIN LOW STRENGTH 81 MG TAB) Admission/Clinic Administered Medications as of 04/12/19: furosemide 40 mg tab(s) (LASIX) metFORMIN ER 1,000 mg tab(s) (GLUCOPHAGE XR) potassium chloride ER 20 mEq tab(s) (K-DUR, KLOR-CON) magnesium oxide 400 mg tab(s) (MAG-OX) aspirin 81 mg chewable tab(s) clopidogrel 75 mg tab(s) (PLAVIX) metoprolol tartrate (short acting) 25 mg tab(s) (LOPRESSOR) amiodarone 400 mg tab(s) (PACERONE) NaCl 0.9% 2-10 mL melatonin 3 mg tab(s) dextrose 40 % 15 g glucagon 1 mg injection (GLUCAGEN) dextrose 50 % 12.5 g injection insulin lispro pen (rapid acting) (HumaLOG KWIKPEN) brimonidine 0.2 % 1 Drop (ALPHAGAN) latanoprost 0.005 % 1 Drop (XALATAN) ferrous sulfate 325 mg tab(s) ascorbic acid (vitamin C) 500 mg tab(s) (VITAMIN C) ipratropium-albuterol 3 mL nebulizer solution (DUONEB) pantoprazole DR 40 mg tab(s) (PROTONIX) bisacodyl 10 mg suppository (DULCOLAX) polyethylene glycol 3350 17 g packet (MIRALAX, GLYCOLAX) senna-docusate 8.6-50 mg 1 tablet (SENNA-S) acetaminophen 650 mg tab(s) (TYLENOL) albuterol 2.5 mg /3 mL (0.083 %) 2.5 mg (PROVENTIL) atorvastatin 40 mg tab(s) (LIPITOR) ondansetron (PF) 4 mg injection (ZOFRAN) oxyCODONE-acetaminoph en 5-325 mg 1-2 tablet (PERCOCET) morphine 2-4 mg injection Problem List: Unspecified disorder of skin and subcutaneous tissue [L98.9] Type II or unspecified type diabetes mellitus without mention of complication, not stated as uncontrolled [E11.9] Unspecified essential hypertension [I10] Other and unspecified hyperlipidemia [E78.5] Cardiac dysrhythmia, unspecified [I49.9] Tobacco use disorder [F17.200] Psychosexual dysfunction with inhibited sexual excitement [F52.8] Obesity, unspecified [E66.9] Coronary atherosclerosis of unspecified type of vessel, [place] or graft [I25.10] Unspecified hearing loss [H91.90] Lumbago [M54.5] Peripheral vascular disease, unspecified (HCC) [I73.9] Congenital pes planus [Q66.50] DJD (degenerative joint disease) [M19.90] 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 ADMITTING PROVIDER: Rigo Roland SERVICE DATE: 03/25/2019 SERVICE TIME: 7:14 PM Admission Date: 03/25/2019 AGE: [age] year old LOS: 0 days Subjective 68yo M h/o CAD s/p inferior HAYDEN x2 (10/2017), HTN, HLD, DM2, active tobacco use, Left subclavian artery stenosis, GERD initially presenting on 03/23/19 to [facility] with diaphoresis, palpitations, and dizziness/lightheaded ness. Patient states that he initially was on the stairs from his basement when he collapsed. He was rushed to [facility] by EMS and found to be in Vtach. He received one shock and and was bolused with amiodarone at which point he returned to [facility]. Patient had a cath on Monday morning (03/25/19) that showed multivessel CAD that required CABG. Patient was transported to [facility] for CTS assessment. He is presently on an amiodarone gtt, we will start him on heparin gtt. Patient had EKG at [place] showing NSR with occasional PVC. He is hemodynamically stable in the CVICU on tele. Objective PROBLEMS: ACTIVE PROBLEM LIST Unspecified Disorder of Skin and Subcutaneous Tissue Type II Or Unspecified Type Diabetes Mellitus Without Mention of Complication, Not Stated As Uncontrolled Unspecified Essential Hypertension Other and Unspecified Hyperlipidemia Cardiac Dysrhythmia, Unspecified Tobacco Use Disorder Psychosexual Dysfunction With Inhibited Sexual Excitement Obesity, Unspecified Coronary Atherosclerosis of Unspecified Type of Vessel, [place] Or Graft Unspecified Hearing Loss Lumbago Peripheral Vascular Disease, Unspecified (Hcc) Congenital Pes Planus Djd (Degenerative Joint Disease) 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, Severe Stage Acute Myocardial Infarction (Hcc) 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 - PAST SURGICAL HISTORY OF 2002 herniorrhaphy left inguinal - PAST SURGICAL HISTORY OF 1963 elbow surgery bone chips - REMOVE CATARACT, INSERT LENS,EX 2010 OD - REMOVE CATARACT, INSERT LENS,EX OS 07/23/12 OS - TRABECULECTOMY WITH SCARRING 2010 OD Social History Socioeconomic History Marital status: Spouse name: Not on file Number of children: Not on file Years of education: Not on file Highest education level: Not on file Occupational History Not on file Social Needs Financial resource strain: Not on file Food insecurity: Worry: Not on file Inability: Not on file Transportation needs: Medical: Not on file Non-medical: Not on file Tobacco Use Smoking status: Current Every Day Smoker Packs/day: 1.00 Years: 50.00 Pack years: 50 Types: Cigarettes Smokeless tobacco: Never Used Substance and Sexual Activity Alcohol use: No Drug use: No Sexual activity: Not on file Lifestyle Physical activity: Days per week: Not on file Minutes per session: Not on file Stress: Not on file Relationships Social connections: Talks on phone: Not on file Gets together: Not on file Attends bahai service: Not on file Active member of club or organization: Not on file Attends meetings of clubs or organizations: Not on file Relationship status: Not on file Intimate partner violence: Fear of current or ex partner: Not on file Emotionally abused: Not on file Physically abused: Not on file Forced sexual activity: Not on file Other Topics Concerns: Not on file Social History Narrative Not on file VITAL SIGNS (last 24hrs min/max): Temp Av.9 ?C (98.4 ?F) Min: 36.9 ?C (98.4 ?F) Max: 36.9 ?C (98.4 ?F) Pulse Av Min: 81 Max: 81 No data recorded Cuff BP Min: 132/86 Max: 132/86 Pain Level: 0 Vital signs reviewed. BP 132/86 Pulse 81 Temp (Src) 98.4 (Temporal) Resp 20 Ht 6' 4 (1.93m) Wt 233 lb 7.5 oz (105.9kg) SpO2 100% BMI 28.43 kg/(m2). O2 Therapy: Room Air Temp (24hrs), Av.9 ?C (98.4 ?F), Min:36.9 ?C (98.4 ?F), Max:36.9 ?C (98.4 ?F) NET FLUID BALANCE Intake/Output Summary (Last 24 hours) at 03/25/2019 1914 Last data filed at 03/25/2019 1800 Gross per 24 hour Intake ? Output 300 ml Net -300 ml MEDICATIONS Current Facility-Administered Medications Medication Dose Route Frequency - atorvastatin 40 mg tab(s) (LIPITOR) 40 mg ORAL AT BEDTIME - lisinopril 5 mg tab(s) (ZESTRIL, PRINIVIL) 5 mg ORAL DAILY - metoprolol tartrate (short acting) 25 mg tab(s) (LOPRESSOR) 25 mg ORAL BID - brimonidine 0.1 % 1 Drop (ALPHAGAN P) 1 Drop BOTH EYES BID (599/2099) - latanoprost 0.005 % 1 Drop (XALATAN) 1 Drop BOTH EYES BID () - potassium chloride ER 20-40 mEq tab(s) (K-DUR, KLOR-CON) 20-40 mEq ORAL/FEEDING TUBE PRN Or - potassium chloride iv piggyback 20 mEq/100 mL 20 mEq INTRAVENOUS PRN - magnesium sulfate in water 2 g in sterile water 50 ml 2 g INTRAVENOUS PRN - sodium phosphate 45 mmol in NaCl 0.9% 250 mL 45 mmol INTRAVENOUS PRN - calcium gluconate 4 g in NaCl 0.9% 250 mL 4 g INTRAVENOUS PRN - dextrose 40 % 15 g 15 g ORAL PRN Or - glucagon 1 mg injection (GLUCAGEN) 1 mg INTRAMUSCULAR PRN Or - dextrose 50 % 12.5 g injection 12.5 g INTRAVENOUS PRN - insulin lispro pen (rapid acting) (HumaLOG KWIKPEN) SUBCUTANEOUS w MEALS - heparin iv infusion (LOW DOSE ACS/NOMOGRAM) 25,000 units in NaCl 0.45% 250 mL PREMIX 0-3,000 Units/hr INTRAVENOUS CONTINUOUS And - heparin RATE CHANGE bolus 1,000-4,000 Units for subtherapeutic aptt results 1,000-4,000 Units INTRAVENOUS PRN - heparin nomogram - NO INITIAL BOLUS OTHER ONCE (heparin bolus) Lines, Drains, and Airways Line Peripheral 03/25/191858 Admission to Hospital Short Right Antecubital 20 Gauge less than 1 day PHYSICAL EXAM PERFORMED: Elderly NAD COPD habitus Mild bruising no rash Cardiovascular: Regular rhythm, no M/R/G apex nonpalp no RV lift distant heart sounds Respiratory: diminished breath sounds no access m use or wheeze R radial cath site clean Abdomen: Soft and Nontender no hepatomegaly Extremities: Edema- No edema, peripheral pulses intact Neurologic: Awake, oriented, Alert, Follows commands and Moving all extremities Pleasant affect normal speech Neck bilat caroti upstr 2+; no bruit; no obvious JVD Pupils equal eyelids normal Respiratory/Nursing Documentation: O2 Therapy: Room Air (03/25/19 1800) HEMODYNAMIC DATA: Reviewed NUTRITION: Enteral Feeds: No Regular diet DATA: Diagnostic tests reviewed for today's visit, films/specimens were personally reviewed by me: Most recent labs and imaging results. LABS: ABG: Invalid input(s): [id number] Assessment/Plan IMPRESSION: Critical Care Documentation: The patient has the following organ/system impairment(s): Inferior KS 1. Inferior KS 2/2 Multivessel CAD requiring CABG-reviewed films-agree severe 3 VD , good targets; Echo EF 55% 2. Ventricular Tachycardia 2/2 #1 s/p defibrillation on amio gtt- likely due to ischemia from severe 3vd ; less likely scar related given good LVFx; only bdlne trop leak; will get EP input after CABG but do not think will require ICD after revasc; 3. Troponin elevation 2/2 #1 4. Hypokalemia-replete 5. DM2-on aceinhib 6. CAD s/p HAYDEN x2 in 2018 (mid and distal RCA) 7. Left subclavian artery stenosis-?needs BP R arm ; have both arms checked to document 8. HLD-high dose statin 9. GERD MMP CRITICAL CARE PLAN: -hep gtt -amio gtt -on low dose BB, ACEi -holding brilinta in setting of likely CABG, had last dose 03/25 am -ECHO shows EF 53%, stage II diastolic dysfunction -SSI -ICU monitoring -CTS consulted Discussed with staff/patient/family Time spent providing critical care services: 30 minutes excluding procedures. I saw and evaluated the patient. Discussed with the resident and agree with resident's findings and plan as documented in the resident's note. Rigo Roland MD Pager [phone] Cc time 30 min SIGNATURE: Deshawn Hemphill MD PATIENT NAME: Rigo Diaz DATE: March 25, 2019 TIME: 7:14 PM Previous Version Harry Coulter RN, RN 03/26/2019 10:17 AM Addendum Sitting upright in bed. Resting and in no acute distress. Talking and texting on his cell phone. Denies chest pain/discomfort. Denies shortness of breath at rest or with conversation. Heparin and Amiodarone infusing as noted in Epic. Agree with assessment of RN orienting. Previous Version Norah Ortega RN, RN 03/26/2019 11:15 AM Signed CARE MANAGEMENT: ASSESSMENT AND DISCHARGE PLAN SERVICE DATE: 03/26/2019 SERVICE TIME: 11:08 AM PRIMARY CARE PHYSICIAN: Carol Mckee MD ADMISSION STATUS: Inpatient Needs Prior to Discharge: Discharge Prescriptions;Home Care Order MEDICAL: Patient/Representativ e Stated Goals: To have reduction in pain To have reduction in symptoms To improve my functional status To return home to life as it was To be cured/healed Health Insurance: MEDICARE A AND B For Life Health Issues Impacting Discharge Plan: Newly diagnosed needs CABG Last Discharge Date: 07/23/12 Is this Within the Past 30 days? No Advance Directive: Current Advance Directive: None [address] [employer] Attempted to Assist with AD Completion: Yes Action: Education Provided Health Literacy: 1. How often do you need to have someone help you when you read instructions, pamphlets, or other written material from your doctor or pharmacy? Never - 1 2. How confident are you filling out medical forms by yourself? Extremely - 1 If Patient scores > 3 on either question, the following interventions were put into place: Patient did not score > 3 FUNCTIONAL AND COGNITIVE/BEHAVIORAL PRIOR TO ADMISSION: Baseline Mental Status: Alert AND Oriented, Person, Place , Time and Situation Functional Status: Independent Does Patient Currently Receive Any Community Services or Home Care? None Equipment Prior to Admission: None Has the Patient Been in a Halfway Facility in the Past 30 days? No SOCIAL: Living Arrangement: Home Lives With: Spouse Financial Resources: Retired Primary Contact: Extended Emergency Contact Information Primary Emergency Contact: Katherine Diaz Address: [address] [place] [id number] Mobile Relation: Spouse Supportive: Yes Other Important Patient Contacts: None Caregiver Assessment: Caregiver is ready, willing and able to meet the patient's needs as recommended by the inter-professional team? Yes Patient's transition needs and plan for meeting these needs: home, assist and C Does the patient have an acute stroke diagnosis, or has the patient had a stroke during this admission? No Medication Adherence: I am convinced of the importance of my prescription medication: Agree completely - 0 I worry that my prescription medication will do more harm than good to me Disagree completely - 0 I feel financially burdened by my [id number] expenses for my prescription medication: Disagree completely - 0 Patient is categorized as low risk < 2 Are you interested in bedside delivery of your medications? Yes Food Concerns: In the Last Month, Have You had Trouble Getting Food? No trouble getting food During the Last Month, Have You Worried Whether Your Food Would Run Out Before You Had Enough Money to Buy More? No Is the Patient Psychosocially Complex? 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 Plan is for CABG, date to be determined (Brilinta washout). Discussed post CABG disch needs. states she will be home with . Agreeable to [facility] - referral created. SIGNATURE: Norah Ortega RN PATIENT NAME: Rigo Diaz DATE: March 26, 2019 TIME: 11:08 AM PAGER/CONTACT #: [phone] Janes Reyes APRN.EMBLEM CUTTER, EMBLEM CUTTER 04/02/2019 7:10 AM Signed [facility] Surgery Pre-Op Open Heart Check List Patient Info: Rigo Diaz 1950 68 year old Patient has no known allergies. HPI: Mr. Diaz is a 68 y/o male with past medical history of acute myocardial infarction requiring HAYDEN x 2 to RCA in October of 2017 (has been on Brilinta since), recent sustained ventricular tachycardia requiring defibrillation, recent NSTEMI, HTN, HLD, DM2, left subclavian artery stenosis (needs to be evaluated prior to CABG), GERD, and current tobacco smoker who presented to [place] ED via EMS on 03/23/2019 with chest pain. According to EMR, the EMS team found him in vtach, he converted after 1 shock and amiodarone bolus was initiated. He underwent left heart cath which revealed multivessel CAD. Pt was then transfered to [facility] on 03/25 for CTS assessment. Here he remains in NSR and pain free in CVICU on heparin and amio drips. He will need additional workup prior to CABG as well as Brilinta washout x 7 days prior to CABG. Last set of vitals: BP 123/81 Pulse 75 Temp 36.5 ?C (97.7 ?F) (Temporal) Resp 21 Ht 193 cm (6' 4) Wt 105.9 kg (233 lb 7.5 oz) SpO2 98% BMI 28.42 kg/m? Wt: 109.3 kg (241 lb) BMI: 28.46 kg/(m2) Procedure: CABG Diagnosis: NSTEMI Date of Procedure: 04/02/2019 STS Risk Score: 1.754% CARE TEAM: Cardiac Surgeon: Dr. Macias [employer] Leader: Dr. Steen PCP: Other Providers: Pre-Op Testing: LABS: CHEMISTRY Troponin I (ng/ml) Date Value 03/26/2019 0.028 03/25/2019 0.027 03/25/2019 0.025 Sodium (mEq/L) Date Value 03/27/2019 156 03/26/2019 141 03/25/2019 138 Chloride (mEq/L) Date Value 03/27/2019 117 03/26/2019 110 03/25/2019 109 CO2 (mEq/L) Date Value 03/27/2019 25 03/26/2019 27 03/25/2019 24 BUN (mg/dL) Date Value 03/27/2019 12 03/26/2019 10 03/25/2019 11 Creatinine (mg/dL) Date Value 03/27/2019 0.85 03/26/2019 0.82 03/25/2019 0.80 Glucose (mg/dL) Date Value 03/27/2019 119 03/26/2019 110 03/25/2019 101 Magnesium (mg/dL) Date Value 03/25/2019 1.8 Phosphorus (mg/dL) Date Value 03/25/2019 2.0 Protein, Total (g/dL) Date Value 03/27/2019 5.7 03/26/2019 6.0 Calcium (mg/dL) Date Value 03/27/2019 8.6 03/26/2019 8.4 03/25/2019 8.8 Bilirubin, Total (mg/dL) Date Value 03/27/2019 0.3 03/26/2019 0.4 Alkaline Phosphatase (U/L) Date Value 03/27/2019 58 03/26/2019 59 ALT (U/L) Date Value 03/27/2019 28 03/26/2019 29 AST (U/L) Date Value 03/27/2019 19 03/26/2019 14 Anion Gap (no units) Date Value 03/27/2019 17 03/26/2019 8 03/25/2019 8 { Lipid Panel No results found for: CHOL, HDL, LDL, TG NT Pro BNP No results found for: PBNP ENDOCRINE Hemoglobin A1C (%) Date Value 03/25/2019 6.7 No results found for: TSHREFL TSH: 1.41 HEMATOLOGY RBC (mil/cmm) Date Value 03/27/2019 4.07 03/26/2019 4.18 03/25/2019 4.43 HGB (g/dL) Date Value 03/27/2019 13.9 03/26/2019 14.1 03/25/2019 15.0 Hematocrit (%) Date Value 03/27/2019 40.2 03/26/2019 40.6 03/25/2019 42.1 WBC (thou/cmm) Date Value 03/27/2019 9.46 03/26/2019 10.20 03/25/2019 11.29 Platelet Count (thou/cmm) Date Value 03/27/2019 247 03/26/2019 218 03/25/2019 231 COAGULATION Prothrombin Time Date Value Ref Range Status 03/25/2019 11.2 9.7 - 13.0 sec Final INR Date Value Ref Range Status 03/25/2019 1.04 0.90 - 1.30 Final Comment: Vitamin K Antagonist (VKA) Therapeutic Range: INR 2 to 3 (Target INR of 2.5) Note: For patients treated with VKA drugs, such as warfarin, the [employer] 2012 Guideline recommends a therapeutic INR range of 2 to 3 (target INR of 2.5). This recommendation includes high-risk patients with antiphospholipid syndrome with previous arterial or venous thromboembolism, current-generation mechanical or bioprosthetic aortic heart valve replacement. VKA Therapeutic Range for some Mechanical Valve Replacement: INR 2.5 to 3.5 (Target INR of 3) Note: Patients with mechanical aortic valve replacement and additional risk factors for thromboembolic events (atrial fibrillation, previous thromboembolism, LV dysfunction, hypercoagulable conditions) or an older generation mechanical AVR (i.e., ball in-Cage) or any mechanical MVR should have a INR therapeutic range of 2.5 to 3.5 target INR of 3). Ellen GH, et al. Chest 2012; 141:7S-47S Gracia RA et al. [facility] 2017; 70: 252-289 Anemia Evaluation: Anemic: No Accept Blood: Yes Blood Conservation Committee: No Ferritin: N/A FE+TIBC: N/A Fe Sat: N/A FOBT: N/A Anemia Treatment: N/A UA No results found for: UPH, SPGR, UGLUC, UBILI, UKET, UHB, UPROT, UROBILINOGEN, NITRITES, LEUKEST, UWBC, BACTERIAUR Type AND Screen: A+ negative Ab screen RBC Cross match: 2 units DOS MRSA Screen: negative Chronic Lung Disease: Yes FEVI: . DLCO: ABG: CANDY: IMAGING/PROCEDURES CXR: No acute radiographic abnormality. Cardiac Catheterization: Severe multivessel disease with ostial left main. No official reading 2D Echo: FINDINGS: ? LEFT VENTRICLE The left ventricle is normal in size. There is mild left ventricular hypertrophy. Left ventricular systolic function is normal. Grade II left ventricular diastolic dysfunction. Mitral annular lateral E/e': 12.9. Mitral annular septal E/e': 15.1. Wall Motion: All scored segments are normal. ? ? RIGHT VENTRICLE The right ventricle is borderline normal in size. Right ventricular systolic function is normal. RV systolic tissue Doppler velocity ?is 16.8 cm/s. Tricuspid annular displacement is 3.3 cm. Estimated right ventricular systolic pressure is 37 mmHg consistent with mild pulmonary hypertension. Estimated right atrial pressure is 8 mmHg based on IVC assessment. ? LEFT ATRIUM The left atrial cavity is severely dilated. ? RIGHT ATRIUM The right atrial cavity is mildly dilated. Inferior Vena Cava: The inferior vena cava appears dilated measuring 2.6 cm. The vessel decreases greater than 50 percent with inspiration. MITRAL VALVE There is moderate mitral annular calcification observed posterior. There is no mitral stenosis. There is trace mitral valve regurgitation. There is mild thickening. The pressure half time is 88 msec. The peak mitral E/A ratio is 1.23. The average mitral E/e' ratio is 14.0. The mitral flow deceleration time is 303 msec. ? TRICUSPID VALVE The tricuspid valve leaflets are structurally normal. There is no tricuspid stenosis. There is trace (trace - 1+) tricuspid valve regurgitation. ? AORTIC VALVE There is mild aortic valve stenosis. There is no aortic valve regurgitation. Tricuspid aortic valve. There is mild thickening. There is mild calcification. The ?peak gradient is 15 mmHg (peak velocity = 195.0 cm/s). The mean gradient is 9 mmHg. The LVOT mean velocity is 53.4 cm/s. The LVOT diameter is 2.5 cm. The aortic ?VTI is 50.3 cm. The mean velocity in the aortic valve is 146.0 cm/s. The dimensionless valve index is 0.39. AV area is 1.92 cm? (0.81 cm?/m?) by continuity, VTI. The LVOT stroke volume index is 41 ml/m?. ? PULMONIC VALVE The pulmonic valve cusps are structurally normal. There is no pulmonic stenosis. There is trace (trace - 1+) pulmonic valve regurgitation. ? AORTA The visualized aorta is borderline dilated. Measurements - Aortic valve annulus 2.5 cm. Sinus 3.8 cm. Sinotubular junction 3.3 ?cm. Mid ascending aorta 3.9 cm. PULMONARY ARTERIES The pulmonary arteries are unseen or not interrogated. ? PERICARDIUM There is no pericardial effusion. ? CONCLUSIONS: - Technically difficult exam due to body habitus. - Exam indication: Evaluation of ventricular function following ACS - The left ventricle is normal in size. There is mild left ventricular hypertrophy. Left ventricular systolic function is normal. EF = 60 ? 5% (2D biplane) Grade II left ventricular diastolic dysfunction. - The right ventricle is normal in size. Right ventricular systolic function is normal. - No significant valve disease: Mild , Trivial MR, Trivial TR, Trivial PI ? - The visualized aorta is borderline dilated with a maximal dimension of 3.9 cm. - The patient has not had a prior CC echocardiographic exam for comparison. EF: 60% 5 Meter Walk Test: Not done OPTIONAL TESTINGS: Carotid U/S: Mild bilateral plaque formation at the origins of the internal carotid artery. By velocity criteria this creates 20-39% stenosis of the internal carotid arteries bilaterally. RIGHT SIDE Internal carotid artery: 20-39% stenosis. Vertebral artery: Patent and antegrade flow noted. LEFT SIDE Internal carotid artery: 20-39% stenosis. Vertebral artery: Patent and antegrade flow noted. Upper EXT MINGO: IMPRESSION Pressures and waveforms in the right upper extremity appear to be essentially normal with sharp upstroke prompt outstripping presence of a dicrotic notch being noted. There is dampening of the waveforms at the upper arm and forearm level on the left compared to the right with a greater than 50 mm pressure difference between the right and left arms. This would be indicative of proximal stenosis or occlusion in the axillary subclavian system. This is considered hemodynamically significant by noninvasive criteria. Palmar Arch: N/A Vein Mapping: N/A Dental Clearance: N/A CT Chest/CTA NECK W IVCON: NECK: Soft tissues: ? The soft tissue planes are maintained throughout. ?No evidence of a soft tissue mass in the neck or superior mediastinum. ?Scattered mildly prominent lymph nodes without evidence of lymphadenopathy by size criteria. Circumscribed 1.2 x 1.0 cm subcutaneous nodule in the left posterior cervicothoracic soft tissues, likely a sebaceous cyst. Spine: Minimal grade 1 anterolisthesis of C2 on C3, C7 on T1, and T2 on T3. Mild to moderate degenerative changes are present. Lung apices: ? Partially imaged 1 cm nodule in the superior segment of the right lower lobe (series 8, image 140). ?Mild centrilobular emphysematous changes. CT ARTERIOGRAM: Extracranial Circulation: Aortic Arch: There is a normal branching pattern from the aortic arch. Extensive atherosclerotic plaque within the left subclavian artery completely occludes the vessel lumen with reconstitution of intraluminal contrast just proximal to the origin of the left internal thoracic artery and left vertebral artery. Carotid Stenosis: Right Common: ?No significant stenosis. Right Internal Carotid ?Plaque: ?Mild. Right Internal Carotid Stenosis (% by NASCET Criteria): ?0% Left Common: ?No significant stenosis. Left Internal Carotid Plaque: ?Mild Left Internal Carotid Stenosis (% by NASCET Criteria): ?0% Cervical Vertebral Arteries: Patency: ?Bilateral Dominance: ?Codominant Intracranial Circulation: Partially imaged portions only: Anterior Circulation: The intracranial ICAs are imaged at the level of the proximal cavernous segment and appear patent. Vertebrobasilar Circulation: Patent intracranial vertebral arteries and proximal basilar artery. Medications: Blood thinners: Patient is on following blood thinners: Aspirin -Yes, dose 81 mg, stopped No, date:N/A Was also on card lacer Brilinta, Last dose 1 Rep Max 65 lbs, Occasional (75% max) 49 lbs, Frequent (45% max) 29 lbs, Constant (35% max) 23 lbs; Comments: >5 days, LPTA Beta Svitlana: Last dose of beta svitlana taken: continue daily STEVE/ARB: Stop 24 hours preop will stop when DOS determined Last dose date 03/31 Steroids: No Chronic Immunosuppressive drugs: No Implantable Device: No Turned off date: N/A Perioperative Transfusion risk STS Risk Factors: Advanced age Yes Preoperative anemia No Non-CABG surgery No Preoperative anticoagulation No Clotting abnormalities No Female gender No Small body habitus No Renal insufficiency Yes: EST GFR: 50; CRCL: 54.37 IDDM Yes Sepsis No Liver disease No Post-operative Wound Healing - Vest recommended Yes (Yes to any one of the below requires a post thorax vest) Risk Factors: Obesity Yes DM Yes Renal Dx No COPD Yes Bilateral GLORIA No CONSIDER PRAVENA: No CLEARANCES NEEDED Pulmonary: No Hematology: No Nephrology No Vascular surgery Yes Other No Shawna Marvin PA-C Previous Version Pam Khalil ([employer]) 03/26/2019 11:38 AM Signed PASSENGER CONDUCTOR BEDSIDE DELIVERY SURVEY 1. Patient to use [facility] Bedside Delivery - YES Insurance Information as follows: 2. Insurance card on file - YES 3. Credit card for payment - N/A No prescriptions written to pt yet, please call pharmacy bedside delivery at [phone] or Ext [phone] once scripts are written and DC orders placed. Pam Khalil ([employer]) Harry Coulter, RN, RN 03/26/2019 12:[address] Macias at bedside regarding consult for cardiac surgery. Plan discussed with the patient. Consent form signed at this time. Dr. Macias aware that for the past 24 hours the blood pressure has been monitored in the left arm that has subclavian stenosis d/t access for cardiac cath was the right radial. Discussed with nursing that the blood pressures would be lower in the left, and that pressures should be assessed in both arms. See [facility] for vital signs and assessment. Alka Hatch MD 03/26/2019 6:14 PM Attested Attestation signed by Sydnee Weems at 03/27/2019 9:22 AM I saw and evaluated the patient. Discussed with the resident and agree with resident's findings and plan as documented in the resident's note. See prior note from me yesterday. Awaiting imaging. Sydnee Weems MD CONSULT: Vascular Surgery SERVICE SERVICE DATE: 03/26/2019 SERVICE TIME: 6:05 PM REASON FOR CONSULT: L Subclavian stenosis REQUESTING PHYSICIAN: Dr. Macias PRIMARY CARE PHYSICIAN: Carol Mckee MD Subjective Mr. Diaz is a 68 year old male with PMH s/f: CAD s/p inferior HAYDEN x2 (10/2017), HTN, HLD, DM2, active tobacco use (was smoking prior to admission), Left subclavian artery stenosis, GERD - admitted from [facility] for CAD requring CABG. Patient initially presented to [facility] with diaphoresis, palpitations, and dizziness/lightheaded ness. He was taken to [facility] by EMS 03/23 and found to be in Vtach. He received one shock and and was bolused with amiodarone at which point he returned to [facility]. He underwent cardiac cath on Monday morning (03/25/19) which demonstrated multivessel CAD. Patient was transported to [facility] for CTS assessment. Vascular surgery is consulted regarding patient's history of Left subclavian stenosis in setting of plans for CABG next week. Patient reports that he has been told many times before by his PCP that hehas Left subclavian stenosis. He denies any recent workup or imaging. Denies any persistent symptoms, but states that sometimes he will experience numbness and tingling in his left hand with prolonged use. Denies headaches, vision changes or focal deficit. 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 - PAST SURGICAL HISTORY OF 2002 herniorrhaphy left inguinal - PAST SURGICAL HISTORY OF 1963 elbow surgery bone chips - REMOVE CATARACT, INSERT LENS,EX 2010 OD - REMOVE CATARACT, INSERT LENS,EX OS 07/23/12 OS - TRABECULECTOMY WITH SCARRING 2010 OD FAMILY HISTORY Problem Relation Age of Onset - Emphysema Father - No Ocular Disease Father - Coronary Artery Disease Mother - No Ocular Disease Mother - Macular Degen Other Social History Tobacco Use - Smoking status: Current Every Day Smoker Packs/day: 1.00 Years: 50.00 Pack years: 50.00 Types: Cigarettes - Smokeless tobacco: Never Used Substance Use Topics - Alcohol use: No - Drug use: No Medications Prior to Admission: ALPHAGAN P 0.1 % drop USE 1 DROP IN THE LEFT EYE TWICE A DAY Disp: 15 mL Rfl: 0 latanoprost (XALATAN) 0.005 % ophthalmic solution USE 1 DROP IN THE LEFT EYE DAILY AT BEDTIME, DISCARD AFTER 42 DAYS Disp: 2.5 mL Rfl: 0 lisinopril 10 mg ORAL tablet Take 1 tablet by mouth once daily. Disp: Rfl: 0 simvastatin (ZOCOR) 40 mg ORAL tablet Take 1 tablet by mouth daily at bedtime. Disp: Rfl: 0 omega-3 fatty acids 1,000 mg ORAL Cap Take 1 capsule by mouth twice daily. Disp: Rfl: 0 METOPROLOL 50 MG TAB Take one(1) tablet two(2) times daily. Disp: 60 Rfl: 5 multivitamins w-minerals/lut(CENTRU M SILVER TAB) Take one(1) tablet daily. Disp: Rfl: 0 niacin(NIASPAN 500 MG TAB) Take one(1) tablet daily Disp: Rfl: 0 aspirin(ECOTRIN LOW STRENGTH 81 MG TAB) Take one(1) tablet daily. Disp: Rfl: 0 IBUPROFEN 200 MG TAB as necessary taking 1373-1775 mg daily Disp: Rfl: 0 Current Facility-Administered Medications Medication Dose Route Frequency - atorvastatin 40 mg tab(s) (LIPITOR) 40 mg ORAL AT BEDTIME - metoprolol tartrate (short acting) 25 mg tab(s) (LOPRESSOR) 25 mg ORAL BID - latanoprost 0.005 % 1 Drop (XALATAN) 1 Drop BOTH EYES BID (0600/2100) - potassium chloride ER 20-40 mEq tab(s) (K-DUR, KLOR-CON) 20-40 mEq ORAL/FEEDING TUBE PRN Or - potassium chloride iv piggyback 20 mEq/100 mL 20 mEq INTRAVENOUS PRN - magnesium sulfate in water 2 g in sterile water 50 ml 2 g INTRAVENOUS PRN - sodium phosphate 45 mmol in NaCl 0.9% 250 mL 45 mmol INTRAVENOUS PRN - calcium gluconate 4 g in NaCl 0.9% 250 mL 4 g INTRAVENOUS PRN - dextrose 40 % 15 g 15 g ORAL PRN Or - glucagon 1 mg injection (GLUCAGEN) 1 mg INTRAMUSCULAR PRN Or - dextrose 50 % 12.5 g injection 12.5 g INTRAVENOUS PRN - insulin lispro pen (rapid acting) (HumaLOG KWIKPEN) SUBCUTANEOUS w MEALS - heparin iv infusion (LOW DOSE ACS/NOMOGRAM) 25,000 units in NaCl 0.45% 250 mL PREMIX 0-3,000 Units/hr INTRAVENOUS CONTINUOUS And - heparin RATE CHANGE bolus 1,000-4,000 Units for subtherapeutic aptt results 1,000-4,000 Units INTRAVENOUS PRN - brimonidine 0.2 % 1 Drop (ALPHAGAN) 1 Drop LEFT EYE BID - amiodarone 360 mg in D5W 200 mL (NEXTERONE) 0.5 mg/min INTRAVENOUS CONTINUOUS - ALPRAZolam 0.5 mg tab(s) (XANAX) 0.5 mg ORAL HS PRN - aspirin 81 mg chewable tab(s) 81 mg ORAL DAILY Allergies As of Date: 03/25/2019 (No Known Allergies) Fully Assessed 03/25/2019 COMPLETE REVIEW OF SYSTEMS: See HPI for pertinent ROS Objective PHYSICAL EXAM: Physical Exam Performed: GENERAL: Alert, no distress, cooperative SKIN: Skin color, texture, turgor normal. No rashes or lesions. HEAD/SINUSES: No significant findings LUNGS: no respiratory distress on RA CARDIAC: reg rate ABDOMEN: Normal abdominal exam EXTREMITIES: No ulcers, palpable radial pulses bilaterally, MSI- equal/bilateral muscle strength NEURO: Cranial nerves II-XII intact BP 123/81 Pulse 75 Temp (Src) 98.4 (Temporal) Resp 21 Ht 6' 4 (1.93m) Wt 233 lb 7.5 oz (105.9kg) SpO2 98% BMI 28.43 kg/(m2). O2 Therapy: Room Air DATA: Diagnostic tests reviewed for today's visit: Most recent labs and imaging results. CBC, Coags, BMP, Mg, Phos Recent Labs 03/26/19 0925 03/26/19 0220 03/25/19 1930 WBC -- 10.20* 11.29* HB -- 14.1 15.0 HCT -- 40.6 42.1 PLT -- 218 231 INR -- -- 1.04 APTT 54.7* 33.6* 25.5 NA -- 141 138 K -- 3.5 3.2* CHLOR -- 110* 109* CO2 -- 27 24 BUN -- 10 11 CREAT -- 0.82 0.80 GLUC -- 110* 101* CA -- 8.4* 8.8 MG -- -- 1.8 P -- -- 2.0* Liver Function, Amylase, AND Lipase Recent Labs 03/26/19 0220 TPROT 6.0* ALB 3.1* ALT 29 AST 14* ALKPHOS 59 TBILI 0.4 Impression/Recommenda tions 68 yo M with multivessel CAD -requiring CABG. Vascular surgery on consult for L subclavian stenosis Will obtain BUE PVR Will obtain CTA HNC to further evaluate subclavian stenosis Medical management per primary D/w Dr. Weems Vascular AND Thoracic Surgery Service Pager: For questions or concerns Mon-Mon 6a-5p please page [phone]. After 5pm and on Weekends and Holidays, please page [phone] if in ICU or [phone] if on RNF. SIGNATURE: Alka Hatch MD PATIENT NAME: Rigo Diaz DATE: March 26, 2019 TIME: 2:14 PM PAGER: Rigo Roland MD 03/26/2019 3:41 PM Signed Cardiovascular Intensive Care Progress Note March 26, 2019 Patient Name: Rigo Diaz Patient Location: [id number]- 322* Admission Date: 03/25/2019 Length of Stay: 1 Primary Service: Cardiovascular Intensive Care Case Background: 68 year old White male PMHx: CAD s/p HAYDEN in 10/2017, HTN, hyperlipidemia, DM type 2, left subclavian artery stenosis, GERD, and glaucoma of the right eye. He is active smoker. Presented on 03/25/2019, referred from [facility] for evaluation of CABG. On 03/23/2019, the patient had diaphoresis, palpitations, dizziness, and collapsed at home. He was rushed by EMS to [facility] and was found to have VT. Shocked once and started amiodarone loading with return of NSR. The patient had minimal troponin increase, peaked at 0.099. He had a heart cath on 03/25 which showed multivessel disease. Transferred to [facility] for CABG. Last dose of Brilinta was given on 03/25 a morning. Hosp. Course: Patient admitted to CVICU in a stable condition. Echo and left heart cath images at [place] were reviewed. Cardiothoracic surgery consulted. No current facility-administered medications on file prior to encounter. Current Outpatient Medications on File Prior to Encounter: ALPHAGAN P 0.1 % drop USE 1 DROP IN THE LEFT EYE TWICE A DAY latanoprost (XALATAN) 0.005 % ophthalmic solution USE 1 DROP IN THE LEFT EYE DAILY AT BEDTIME, DISCARD AFTER 42 DAYS lisinopril 10 mg ORAL tablet Take 1 tablet by mouth once daily. simvastatin (ZOCOR) 40 mg ORAL tablet Take 1 tablet by mouth daily at bedtime. omega-3 fatty acids 1,000 mg ORAL Cap Take 1 capsule by mouth twice daily. METOPROLOL 50 MG TAB Take one(1) tablet two(2) times daily. multivitamins w-minerals/lut(CENTRU M SILVER TAB) Take one(1) tablet daily. niacin(NIASPAN 500 MG TAB) Take one(1) tablet daily aspirin(ECOTRIN LOW STRENGTH 81 MG TAB) Take one(1) tablet daily. IBUPROFEN 200 MG TAB as necessary taking [id number] mg daily Interval History for 03/26/19: Patient seen and examined in the AM. No overnight events. The patient denies chest pain or SOB. States that he feels completely fine. Review of Systems: Review of Systems Constitutional: Negative for chills, diaphoresis and fever. HENT: Negative for congestion and sore throat. Eyes: Negative for blurred vision. Respiratory: Negative for cough, shortness of breath and wheezing. Cardiovascular: Negative for chest pain, palpitations, orthopnea, leg swelling and PND. Gastrointestinal: Negative for abdominal pain, constipation, diarrhea, nausea and vomiting. Genitourinary: Negative for dysuria, frequency and urgency. Neurological: Negative for dizziness, focal weakness and headaches. BP 150/69 Pulse 75 Temp (Src) 98.4 (Temporal) Resp 18 Ht 6' 4 (1.93m) Wt 233 lb 7.5 oz (105.9kg) SpO2 98% BMI 28.43 kg/(m2). O2 Therapy: Room Air Temp (24hrs), Av.8 ?C (98.2 ?F), Min:36.5 ?C (97.7 ?F), Max:36.9 ?C (98.4 ?F) Physical Exam Constitutional: He is oriented to person, place, and time and well-developed, well-nourished, and in no distress. HENT: Head: Normocephalic and atraumatic. Mouth/Throat: No oropharyngeal exudate. Eyes: Pupils are equal, round, and reactive to light. EOM are normal. No scleral icterus. Neck: Neck supple. No JVD present. Cardiovascular: Normal heart sounds. Exam reveals no gallop and no friction rub. No murmur heard. Pulmonary/Chest: Breath sounds normal. He has no wheezes. He has no rales. Abdominal: Bowel sounds are normal. He exhibits no distension. There is no tenderness. There is no guarding. Musculoskeletal: He exhibits no edema. Lymphadenopathy: He has no cervical adenopathy. Neurological: He is alert and oriented to person, place, and time. Skin: Skin is warm and dry. He is not diaphoretic. Telemetry: sinus bradycardia in 50s, nonsustained VT (5 beats) on 03/25 at 7 - 8 PM EKG: no new ischemic changes Most recent echo: no echo on file. Echo from [place] showed EF 53%, and stage II diastolic dysfunction. IANDO: Date 03/25/19699 - 03/26/19 0603/26/19699 - 03/27/19 0659 Shift 9970-5550 8410-6455 9580-2175 24 Hour Total 9583-7594 9916-5000 3578-5078 24 Hour Total INTAKE PO 240 360 600 480 480 PO 240 360 600 480 480 IV 141 544 685 117.2 117.2 IVPB 141 250 391 Heparin IV 100 100 26.9 26.9 Amiodarone 194 194 90.3 90.3 Shift Total 870 845 4462 597.2 597.2 OUTPUT Urine 179 102 8997 550 550 Void (ml) 889 830 5364 550 550 Urine Not Saved. 1 x 1 x # of BMs Number of BMs 1 x 1 x Shift Total 666 243 9147 550 550 Weight (kg) 105.9 105.9 105.9 105.9 105.9 105.9 105.9 Labs AND Imaging reviewed: DATA: BLOOD GAS: No results for input(s): VPH, VPC2, VPO2C, RESPHCO3, BASEX, V3DEBMBX, PH, PCO2, RESPHCO3, BASEX, A5LTVQDS in the last 168 hours. Invalid input(s): PO2C CBC: Recent Labs 03/26/1921903/25/191929 WBC 10.20* 11.29* HB 14.1 15.0 HCT 40.6 42.1 PLT 218 231 MCV 97.1* 95.0 COAG: Recent Labs 03/26/1992403/26/1921903/25/191929 APTT 54.7* 33.6* 25.5 INR -- -- 1.04 BMP: Recent Labs 03/26/1921903/25/191929 GLUC 110* 101* NA 141 138 K 3.5 3.2* CHLOR 110* 109* CO2 27 24 ANION 8 8 BUN 10 11 CREAT 0.82 0.80 CHEM: Recent Labs 03/26/1921903/25/191929 ALB 3.1* -- TPROT 6.0* -- CA 8.4* 8.8 MG -- 1.8 HEPATIC: Recent Labs 03/26/19219 ALKPHOS 59 ALT 29 AST 14* TBILI 0.4 URINALYSIS: No results for input(s): PH, SPGR, UGLUC, UBILI, UKET, UHB, UPROT, UROBIL, UWBC, SSA in the last 168 hours. Invalid input(s): NITR CARDIAC: No results for input(s): CKTEST, CKMB, CKMBP, TROPT, PBNP in the last 168 hours. Lipid Panel: No results found for: CHOL, HDL, LDL, TG Current active therapies: Current Facility-Administered Medications Medication Dose Route Frequency - atorvastatin 40 mg tab(s) (LIPITOR) 40 mg ORAL AT BEDTIME - metoprolol tartrate (short acting) 25 mg tab(s) (LOPRESSOR) 25 mg ORAL BID - latanoprost 0.005 % 1 Drop (XALATAN) 1 Drop BOTH EYES BID (0600/2100) - potassium chloride ER 20-40 mEq tab(s) (K-DUR, KLOR-CON) 20-40 mEq ORAL/FEEDING TUBE PRN Or - potassium chloride iv piggyback 20 mEq/100 mL 20 mEq INTRAVENOUS PRN - magnesium sulfate in water 2 g in sterile water 50 ml 2 g INTRAVENOUS PRN - sodium phosphate 45 mmol in NaCl 0.9% 250 mL 45 mmol INTRAVENOUS PRN - calcium gluconate 4 g in NaCl 0.9% 250 mL 4 g INTRAVENOUS PRN - dextrose 40 % 15 g 15 g ORAL PRN Or - glucagon 1 mg injection (GLUCAGEN) 1 mg INTRAMUSCULAR PRN Or - dextrose 50 % 12.5 g injection 12.5 g INTRAVENOUS PRN - insulin lispro pen (rapid acting) (HumaLOG KWIKPEN) SUBCUTANEOUS w MEALS - heparin iv infusion (LOW DOSE ACS/NOMOGRAM) 25,000 units in NaCl 0.45% 250 mL PREMIX 0-3,000 Units/hr INTRAVENOUS CONTINUOUS And - heparin RATE CHANGE bolus 1,000-4,000 Units for subtherapeutic aptt results 1,000-4,000 Units INTRAVENOUS PRN - brimonidine 0.2 % 1 Drop (ALPHAGAN) 1 Drop LEFT EYE BID - amiodarone 360 mg in D5W 200 mL (NEXTERONE) 0.5 mg/min INTRAVENOUS CONTINUOUS - ALPRAZolam 0.5 mg tab(s) (XANAX) 0.5 mg ORAL HS PRN - aspirin 81 mg chewable tab(s) 81 mg ORAL DAILY Assessment/Plan Reviewed in its entirety and amended as appropriate on 03/26/19 ASSESSMENT ANDPLAN Coronary Artery Disease s/p HAYDEN in 10/2107 - Multivessel Disease ? The patient presented to [facility] with VT that required a shock ? Troponin peaked at 0.099 ? Echo images reviewed and didn't show significant WMA ? Heart cath images reviewed and showed multivessel disease which requires CABG ? Cardiothoracic surgery consulted ? Likely, the surgery will be delayed for 4 more days due to recent use of Brilinta ? Last dose of Brilinta on 03/25/2019 at morning ? ASA, statin, lopressor, lisinopril, and heparin drip Ventricular Tachycardia ? Patient presented to [facility] with VT that required a shock ? Currently in normal sinus rhythm ? Tele doesn't show frequent tachy arrhythmias ? Monitor and replace electrolytes ? Amiodarone IV and lopressor Hypertension ? BP is running high ? Increased lopressor dose to his home dose, 50 mg bid ? Increased lisinopril dose to his home dose, 10 mg qd ? Monitor BP from both arms due to left subclavian artery stenosis Hyperlipidemia ? Continue statin DM ? The patient denies history of DM ? A1C is 6.7 ? Blood glucose well controlled for now ? Outpatient management with PCP Tobacco Use Disorder ? Discussed the need to quit smoking Left Subclavian Artery Stenosis ? No signs of left arm ischemia ? Stable ? Measure BP from both arms. Left arm is expected to give false lower numbers Glaucoma of Right Eye ? Continue home eye drops and medications Signed: Harmony Recio DO PGY1 Pager: [phone] Date: March 26, 2019 Time: 3:30 PM I saw and evaluated the patient. Discussed with the resident and agree with resident's findings and plan as documented in the resident's note. Rigo Roland MD Recommendations are not finalized until co-signed by Staff physician. Previous Version Colt Macias MD 04/04/2019 3:15 PM Addendum CARDIOTHORACIC SURGERY CONSULT / HANDP SERVICE DATE: 03/26/2019 SERVICE TIME: 3:17 PM Subjective PRIMARY SERVICE: Cardiothoracic Surgery CHIEF COMPLAINT: Chest pain HPI: Mr. Diaz is a 68 y/o male with past medical history of acute myocardial infarction requiring HAYDEN x 2 to RCA in October of 2017 (has been on Brilinta since), recent sustained ventricular tachycardia requiring defibrillation, recent NSTEMI, HTN, HLD, DM2, left subclavian artery stenosis (needs to be evaluated prior to CABG), GERD, and current tobacco smoker who presented to [place] ED via EMS on 03/23/2019 with chest pain. According to EMR, the EMS team found him in vtach, he converted after 1 shock and amiodarone bolus was initiated. He underwent left heart cath which revealed multivessel CAD. Pt was then transfered to [facility] for CTS assessment. Here he remains in NSR and pain free in CVICU on heparin and amio drips. He will need additional workup prior to CABG as well as Brilinta washout x 7 days prior to CABG. Patient is Able to Perform the Following Physical Activity: Walk indoors, such as around the house (1.75 METs) Do light work around the house, such as dusting or washing dishes (2.70 METs) Take care of self; that is eating, dressing, bathing, using the toilet (2.75 METs) Do moderate work around the house such as vacuuming, sweeping floors, or carrying in groceries (3.50 METs) Patient has the following medical comorbidities which might affect the perioperative course: - CAD of the nikolski vessel. Status post PCI (with Drug Eluding Stent x 2 implanted on 10/2017).. - non diagnosed COPD - Type II Diabetes with no complications. Patient is on newly diagnosed. - Hypertension, well controlled. - Patient is overweight related to excessive caloric intake. Body mass index is 28.42 kg/m?. 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 - PAST SURGICAL HISTORY OF 2002 herniorrhaphy left inguinal - PAST SURGICAL HISTORY OF 1963 elbow surgery bone chips - REMOVE CATARACT, INSERT LENS,EX 2010 OD - REMOVE CATARACT, INSERT LENS,EX OS 07/23/12 OS - TRABECULECTOMY WITH SCARRING 2010 OD FAMILY HISTORY Problem Relation Age of Onset - Emphysema Father - No Ocular Disease Father - Coronary Artery Disease Mother - No Ocular Disease Mother - Macular Degen Other Social History Tobacco Use - Smoking status: Current Every Day Smoker Packs/day: 1.00 Years: 50.00 Pack years: 50.00 Types: Cigarettes - Smokeless tobacco: Never Used Substance Use Topics - Alcohol use: No - Drug use: No Medications Prior to Admission: ALPHAGAN P 0.1 % drop USE 1 DROP IN THE LEFT EYE TWICE A DAY Disp: 15 mL Rfl: 0 latanoprost (XALATAN) 0.005 % ophthalmic solution USE 1 DROP IN THE LEFT EYE DAILY AT BEDTIME, DISCARD AFTER 42 DAYS Disp: 2.5 mL Rfl: 0 lisinopril 10 mg ORAL tablet Take 1 tablet by mouth once daily. Disp: Rfl: 0 simvastatin (ZOCOR) 40 mg ORAL tablet Take 1 tablet by mouth daily at bedtime. Disp: Rfl: 0 omega-3 fatty acids 1,000 mg ORAL Cap Take 1 capsule by mouth twice daily. Disp: Rfl: 0 METOPROLOL 50 MG TAB Take one(1) tablet two(2) times daily. Disp: 60 Rfl: 5 multivitamins w-minerals/lut(CENTRU M SILVER TAB) Take one(1) tablet daily. Disp: Rfl: 0 niacin(NIASPAN 500 MG TAB) Take one(1) tablet daily Disp: Rfl: 0 aspirin(ECOTRIN LOW STRENGTH 81 MG TAB) Take one(1) tablet daily. Disp: Rfl: 0 IBUPROFEN 200 MG TAB as necessary taking 9559-4339 mg daily Disp: Rfl: 0 ALPHAGAN P 0.1 % drop USE 1 DROP IN THE LEFT EYE TWICE A DAY latanoprost (XALATAN) 0.005 % ophthalmic solution USE 1 DROP IN THE LEFT EYE DAILY AT BEDTIME, DISCARD AFTER 42 DAYS lisinopril 10 mg ORAL tablet Take 1 tablet by mouth once daily. simvastatin (ZOCOR) 40 mg ORAL tablet Take 1 tablet by mouth daily at bedtime. omega-3 fatty acids 1,000 mg ORAL Cap Take 1 capsule by mouth twice daily. METOPROLOL 50 MG TAB Take one(1) tablet two(2) times daily. multivitamins w-minerals/lut(CENTRU M SILVER TAB) Take one(1) tablet daily. niacin(NIASPAN 500 MG TAB) Take one(1) tablet daily aspirin(ECOTRIN LOW STRENGTH 81 MG TAB) Take one(1) tablet daily. IBUPROFEN 200 MG TAB as necessary taking 6248-8741 mg daily ALLERGIES No Known Allergies REVIEW OF SYSTEMS: PAIN ASSESSMENT: Negative for pain, history of chronic pain, or current treatment for a chronic pain condition. GENERAL: No weight loss, malaise or fevers HEENT: Negative for frequent or significant headaches, No changes in hearing or vision, no nose bleeds or other nasal problems RESPIRATORY: Negative for cough, wheezing or shortness of breath. CARDIOVASCULAR: Negative for leg swelling palpitations claudication, Positive for chest pain GI: Negative for abdominal discomfort, blood in stools or black stools or change in bowel habits HEMATOLOGY/LYMPHOLOGY Negative for prolonged bleeding, bruising easily or swollen nodes. ENDOCRINE: Negative for cold or heat intolerance, polyuria, polydipsia and goiter. NEURO: No history of headaches, syncope, paralysis, seizures or tremors Objective PHYSICAL EXAM: BP 150/69 Pulse 75 Temp 36.9 ?C (98.4 ?F) (Temporal) Resp 18 Ht 193 cm (6' 4) Wt 105.9 kg (233 lb 7.5 oz) SpO2 98% BMI 28.42 kg/m? Body surface area is 2.38 meters squared. STS RISK CALCULATOR: TBD STS Calculator Lines, Drains, and Airways Line Peripheral 03/25/19 1859 Admission to Hospital Short Right Antecubital 20 Gauge less than 1 day Peripheral 03/25/19 1900 Short Left Forearm 20 Gauge less than 1 day @LDAASSESS(2::::8:)@ DATA: Diagnostic tests reviewed for today's visit: Cardiac Catheterization: reading not available ECHO: [facility] [address] [place] [address] Echo Complete W/ Contrast 03/25/19 0810 MR#: [id number] Acct: [id number] Name: RIGO DIAZ III Rep #: [id number] : 1950 68 From: Fish Torres MD Attending Dr: Hong Parham DO Status: ADM IN Ordering Dr: Damaris Harrison MD Date: 03/23/19 Location: ICU Sex: M C Admitted: 03/23/19 Reason For Study: Arrhythmia Procedure This was a 2D Doppler, Color Flow transthoracic echocardiogram. Contrast injection was performed. The study was technically difficult. Exam performed portable in ICU/CCU. Left Ventricle Normal LV size. The estimated ejection fraction is 53 %. Left ventricular systolic function is lower limits of normal. Stage 2 diastolic dysfunction. Infero-Basal: Hypokinetic. Right Ventricle Normal RV size. Normal systolic function. Atria The left atrium is moderately enlarged. Normal right atrium. Mitral Valve Normal mitral valve. Tricuspid Valve Normal tricuspid valve. Aortic Valve Trisinus/trileaflet aortic valve. Mild focal aortic valve thickening. Pulmonic Valve Normal pulmonic valve. Great Vessels Mildly dilated aortic root. Calcified aortic root. The pulmonary artery is normal size. Normal inferior vena cava. Pericardium/Pleural No pericardial effusion. Medication Diluted definity 3ml given slow IV push to enhance endocardial definition. MMode/2D Measurements AND Calculations LVIDd: 5.3 cm IVSd: 1.0 cm Ao root diam: 4.0 cm LVIDs: 3.9 cm LVPWd: 2.0 cm LA dimension: 3.9 cm FS: 27.6 % _ LAV(MOD-bp): 105.3 ml LVAd ap4: 40.7 cm2 SV(MOD-sp4): 87.2 ml LAV(MOD-bp) Indexed: 44.6 ml/m2 EDV(MOD-sp4): 168.2 ml LAV(MOD-sp2): 100.6 ml EDV(sp4-el): 177.7 ml LAV(MOD-sp4): 105.2 ml LVAs ap4: 24.5 cm2 ESV(MOD-sp4): 80.9 ml ESV(sp4-el): 78.3 ml EF(MOD-sp4): 51.9 % EF(sp4-el): 55.9 % _ SV(sp4-el): 99.4 ml LA A4 area: 29.2 cm2 RA A4 area: 16.0 cm2 Time Measurements MV dec time: 0.19 sec Doppler Measurements AND Calculations MV E max di: 110.9 cm/sec Lat Peak E' Di: 8.5 cm/sec Med Peak E' Di: 6.3 cm/sec MV A max di: 85.0 cm/sec E/E' lat: 13.0 E/E' med: 17.7 MV E/A: 1.3 _ MV V2 max: 115.4 cm/sec MV P1/2t max di: 116.1 cm/sec Ao V2 max: 140.7 cm/sec MV max P.3 mmHg MV P1/2t: 73.8 msec Ao max P.9 mmHg MV V2 mean: 58.5 cm/sec MV mean P.7 mmHg MV dec slope: 460.6 cm/sec2 MV V2 VTI: 25.4 cm MVA(P1/2t): 3.0 cm2 _ LV V1 max: 113.1 cm/sec MR max di: 486.6 cm/sec PA V2 max: 57.4 cm/sec LV V1 max P.1 mmHg MR max P.7 mmHg MR mean di: 388.6 cm/sec MR mean P.7 mmHg MR VTI: 202.4 cm _ TR max di: 261.1 cm/sec TR max P.3 mmHg Interpretation Summary Normal LV size. The estimated ejection fraction is 53 %. Left ventricular systolic function is lower limits of normal. Stage 2 diastolic dysfunction. Contrast injection was performed. Recent Labs 03/26/19 0925 03/26/19 02203/25/19 1930 HBA1C -- -- 6.7* RBC -- 4.18* 4.43* WBC -- 10.20* 11.29* HB -- 14.1 15.0 HCT -- 40.6 42.1 PLT -- 218 231 INR -- -- 1.04 APTT 54.7* 33.6* 25.5 NA -- 141 138 K -- 3.5 3.2* CHLOR -- 110* 109* CO2 -- 27 24 BUN -- 10 11 CREAT -- 0.82 0.80 GLUC -- 110* 101* CA -- 8.4* 8.8 MG -- -- 1.8 P -- -- 2.0* TPROT -- 6.0* -- TBILI -- 0.4 -- ALKPHOS -- 59 -- ALT -- 29 -- AST -- 14* -- ANION -- 8 8 Assessment/Plan NSTEMI -S/p acute KS in 10/2017 with HAYDEN x 2 to RCA -continue asa, statin, and bb -continue w/u for cabg with Dr. Macias next week Left subclavian stenosis -Vascular on consult -appreciate recs DM2 -new finding -Will consult endocrine if not diet controlled HTN -continue bb, acei HLD -continue statin Tobacco use disorder -encourage cessation Planned in collaboration with Dr. Macias. Tests/Labs Ordered: 1. Chest CT Scan 2. Urinalysis 3. MRSA 4. Carotid US These findings will be communicated back to the requesting provider electronically. SIGNATURE: Shawna Marvin PA-C PATIENT NAME: Rigo Diaz DATE: March 26, 2019 TIME: 3:17 PM PAGER/CONTACT #:[phone] ETX [id number] Attending Note I have personally performed a face to face assessment of the patient and have reviewed the PA/DIRECTOR DIABETES note. My ellis findings include: Assessment/Plan are 68 year old man admitted with VT/NSTEMI found to have severe MV CAD with normal LV function in setting of tobacco use, COPD, DM, HTN, HLD. He is found to have left subclavian subtotal occlusion. Recommend MV CABG after DAPT washout. The risks, benefits, and anticipated outcomes of the procedure; the risks and benefits of the alternatives to the procedure; and the roles and tasks of the personnel to be involved were discussed with the patient and he consents to the procedure and agrees to proceed. Given left subclavian stenosis, arterial line will be placed on the right and HUIZAR harvested as free graft. Colt Macias MD Other additions or changes: None Signature: Colt Macias MD Date: 04/04/2019 Time: 3:12 PM Previous Version Sydnee Weems MD 03/26/2019 6:11 PM Signed I saw and evaluated the patient. Discussed with the resident and agree with resident's findings and plan as documented in the resident's note. Please see resident note for details. Briefly, pt with known history of L subclavian stenosis that is asymptomatic. Pt with observed lower BP in LUE than R. Pt with plans for CABG next week. Will get upper extremity PVR and CTA chest/neck to evaluate L subclavian. MD Alka Moya MD 03/27/2019 2:15 PM Attested Attestation signed by Sydnee Weems at 03/27/2019 4:06 PM I saw and evaluated the patient. Discussed with the resident and agree with resident's findings and plan as documented in the resident's note. Imaging reviewed. Poor stent candidate due to length of lesion, quality, and proximity to vertebral artery. HUIZAR free graft may be better option, but will defer to cardiac surgery for that decision. If the pt has issues in the future with regards to the L subclavian artery, Carotid-subclavian bypass is likely the best option. Please call with questions. Sydnee Weems MD Vascular Surgery Progress Note SERVICE DATE: 03/27/2019 SUBJECTIVE: No acute events overnight. Resting comfortably this am. Tolerating diet DIET CARBOHYDRATE CONTROLLED OBJECTIVE: Vitals: Temp (24hrs), Av.7 ?C (98.1 ?F), Min:36 ?C (96.8 ?F), Max:37.4 ?C (99.3 ?F) BP 142/85 Pulse (!) 58 Temp 36.2 ?C (97.2 ?F) (Temporal) Resp 19 Ht 193 cm (6' 4) Wt 105.9 kg (233 lb 7.5 oz) SpO2 96% BMI 28.42 kg/m? O2 Therapy: Room Air IANDO: Date 03/26/19699 - 03/27/19 0659 03/27/19 07 - 03/28/19 0659 Shift 3463-4004 7277-5669 7725-4526 24 Hour Total 4706-8992 5375-6246 6577-9709 24 Hour Total INTAKE PO 480 200 680 PO 480 200 680 IV 117.2 333 295 745.2 Heparin IV 26.9 139 133 298.9 Amiodarone 90.3 194 162 446.3 Shift Total 597.2 031 368 7643.2 OUTPUT Urine 550 815 181 7498 Void (ml) 550 310 409 6096 # of BMs Number of BMs 0 x 0 x Shift Total 550 812 085 4330 Weight (kg) 105.9 105.9 105.9 105.9 105.9 105.9 105.9 105.9 MEDICATIONS Current Facility-Administered Medications Medication Dose Route Frequency - aspirin 81 mg chewable tab(s) 81 mg ORAL DAILY - iv contrast (radiology procedure) INTRAVENOUS DIRECTED PRN - iv contrast (radiology procedure) INTRAVENOUS DIRECTED PRN - lisinopril 10 mg tab(s) (ZESTRIL, PRINIVIL) 10 mg ORAL DAILY - metoprolol tartrate (short acting) 50 mg tab(s) (LOPRESSOR) 50 mg ORAL BID - mupirocin 2 % ointment (BACTROBAN) TOPICAL BID - atorvastatin 40 mg tab(s) (LIPITOR) 40 mg ORAL AT BEDTIME - latanoprost 0.005 % 1 Drop (XALATAN) 1 Drop BOTH EYES BID (0600/2100) - potassium chloride ER 20-40 mEq tab(s) (K-DUR, KLOR-CON) 20-40 mEq ORAL/FEEDING TUBE PRN Or - potassium chloride iv piggyback 20 mEq/100 mL 20 mEq INTRAVENOUS PRN - magnesium sulfate in water 2 g in sterile water 50 ml 2 g INTRAVENOUS PRN - sodium phosphate 45 mmol in NaCl 0.9% 250 mL 45 mmol INTRAVENOUS PRN - calcium gluconate 4 g in NaCl 0.9% 250 mL 4 g INTRAVENOUS PRN - dextrose 40 % 15 g 15 g ORAL PRN Or - glucagon 1 mg injection (GLUCAGEN) 1 mg INTRAMUSCULAR PRN Or - dextrose 50 % 12.5 g injection 12.5 g INTRAVENOUS PRN - insulin lispro pen (rapid acting) (HumaLOG KWIKPEN) SUBCUTANEOUS w MEALS - heparin iv infusion (LOW DOSE ACS/NOMOGRAM) 25,000 units in NaCl 0.45% 250 mL PREMIX 0-3,000 Units/hr INTRAVENOUS CONTINUOUS And - heparin RATE CHANGE bolus 1,000-4,000 Units for subtherapeutic aptt results 1,000-4,000 Units INTRAVENOUS PRN - brimonidine 0.2 % 1 Drop (ALPHAGAN) 1 Drop LEFT EYE BID - amiodarone 360 mg in D5W 200 mL (NEXTERONE) 0.5 mg/min INTRAVENOUS CONTINUOUS - ALPRAZolam 0.5 mg tab(s) (XANAX) 0.5 mg ORAL HS PRN Labs: Recent Labs 03/27/19 0245 03/26/19 0220 03/25/19 1930 NA 156* 141 138 K 3.2* 3.5 3.2* CHLOR 117* 110* 109* CO2 25 27 24 BUN 12 10 11 CREAT 0.85 0.82 0.80 GLUC 119* 110* 101* ANION 17* 8 8 CA 8.6 8.4* 8.8 MG -- -- 1.8 P -- -- 2.0* ALB 3.0* 3.1* -- AST 19 14* -- ALT 28 29 -- ALKPHOS 58 59 -- TBILI 0.3 0.4 -- WBC 9.46* 10.20* 11.29* HB 13.9 14.1 15.0 HCT 40.2 40.6 42.1 PLT 247 218 231 INR -- -- 1.04 CTA: IMPRESSION: Occluded proximal left subclavian artery with reconstitution of intraluminal contrast just proximal to the left internal thoracic artery and left vertebral artery origins. No evidence of cervical or vertebral arterial narrowing or high-grade stenosis. Incidental Finding: Partially imaged 1 cm nodule in the superior segment of the right lower lobe. ?Recommend dedicated chest CT for complete characterization of the lung parenchyma. Exam: BP 160/56 Pulse 62 Temp 36.7 ?C (98.1 ?F) (Temporal) Resp 26 Ht 193 cm (6' 4) Wt 105.9 kg (233 lb 7.5 oz) SpO2 97% BMI 28.42 kg/m? GENERAL: No distress, Alert NEURO: Alert HEENT: normocephalic, atraumatic LUNGS: Unlabored breathing CARDIAC: Regular rate ASSESSMENT AND PLAN: Active Hospital Problems Diagnosis Date Noted - Acute myocardial infarction (HCC) 03/25/2019 68 year old male with multivessel CAD -requiring CABG. Vascular surgery on consult for L subclavian stenosis ? Imaging c/w L subclavian occlusion with reconstitution just proximal to L internal thoracic artery and left vertebral artery origins Due to proximity to vertebral artery/HUIZAR takeoff- patient would not be candidate for vascular stent Will discuss alternative options for conduit vessel with CTS team Medical management per primary ? Vascular AND Thoracic Surgery Service Pager: For questions or concerns Mon-Fri 6a-5p please page [phone]. After 5pm and on Weekends and Holidays, please page [phone] if in ICU or [phone] if on RNF. SIGNATURE: Alka Hatch MD PATIENT NAME: Rigo Diaz DATE: March 27, 2019 TIME: 6:24 AM Pager: Harry Coulter, RN, RN 03/27/2019 8:12 AM Signed Patient talking on the telephone. Denies chest pain and shortness of breath. Appropriate behavior. Relaxed and comfortable with upcoming surgery. Denies pain. Heparin at 1400 un/hr and Amiodarone at 0.5 mg/hr. Vital signs and assessment as charted in [facility]. Rigo Roland MD 03/27/2019 12:09 PM Signed Cardiovascular Intensive Care Progress Note March 27, 2019 Patient Name: Rigo Diaz Patient Location: [id number] 322* Admission Date: 03/25/2019 Length of Stay: 2 Primary Service: Cardiovascular Intensive Care Case Background: 68 year old White male PMHx: CAD s/p HAYDEN in 10/2017, HTN, hyperlipidemia, DM type 2, left subclavian artery stenosis, GERD, and glaucoma of the right eye. He is active smoker. Presented on 03/25/2019, referred from [facility] for evaluation of CABG. Hosp. Course: On 03/23/2019, the patient had diaphoresis, palpitations, dizziness, and collapsed at home. He was rushed by EMS to [facility] and was found to have VT. Shocked once and started amiodarone loading with return of NSR. The patient had minimal troponin increase, peaked at 0.099. He had a heart cath on 03/25 which showed multivessel disease. Transferred to [facility] for CABG. Last dose of Brilinta was given on 03/25 a morning. Patient admitted to CVICU in a stable condition. Echo and left heart cath images at [place] were reviewed. Patient has been evaluated by cardiothoracic surgery and cleared for surgery about 7 days after the last Brilinta dose. Vascular surgery consulted and evaluated the patient for carotid stenosis and left subclavian artery stenosis. No current facility-administered medications on file prior to encounter. Current Outpatient Medications on File Prior to Encounter: ALPHAGAN P 0.1 % drop USE 1 DROP IN THE LEFT EYE TWICE A DAY latanoprost (XALATAN) 0.005 % ophthalmic solution USE 1 DROP IN THE LEFT EYE DAILY AT BEDTIME, DISCARD AFTER 42 DAYS lisinopril 10 mg ORAL tablet Take 1 tablet by mouth once daily. simvastatin (ZOCOR) 40 mg ORAL tablet Take 1 tablet by mouth daily at bedtime. omega-3 fatty acids 1,000 mg ORAL Cap Take 1 capsule by mouth twice daily. METOPROLOL 50 MG TAB Take one(1) tablet two(2) times daily. multivitamins w-minerals/lut(CENTRU M SILVER TAB) Take one(1) tablet daily. niacin(NIASPAN 500 MG TAB) Take one(1) tablet daily aspirin(ECOTRIN LOW STRENGTH 81 MG TAB) Take one(1) tablet daily. IBUPROFEN 200 MG TAB as necessary taking 0109-8491 mg daily Interval History for 03/27/19: Patient seen and examined in the AM. No overnight events. The patient denies chest pain or SOB. States that he feels completely fine. He is aware that CABG will be done on Monday or Monday. Review of Systems: Review of Systems Constitutional: Negative for chills, diaphoresis and fever. HENT: Negative for congestion and sore throat. Eyes: Negative for blurred vision. Respiratory: Negative for cough, shortness of breath and wheezing. Cardiovascular: Negative for chest pain, palpitations, orthopnea, leg swelling and PND. Gastrointestinal: Negative for abdominal pain, constipation, diarrhea, nausea and vomiting. Genitourinary: Negative for dysuria, frequency and urgency. Neurological: Negative for dizziness, focal weakness and headaches. tele NSR BP 159/85 Pulse 70 Temp (Src) 97.2 (Temporal) Resp 18 Ht 6' 4 (1.93m) Wt 233 lb 7.5 oz (105.9kg) SpO2 99% BMI 28.43 kg/(m2). O2 Therapy: Room Air Temp (24hrs), Av.7 ?C (98 ?F), Min:36 ?C (96.8 ?F), Max:37.4 ?C (99.3 ?F) Physical Exam Constitutional: He is oriented to person, place, and time and well-developed, well-nourished, and in no distress. HENT: Head: Normocephalic and atraumatic. Mouth/Throat: No oropharyngeal exudate. Eyes: Pupils are equal, round, and reactive to light. EOM are normal. No scleral icterus. Neck: Neck supple. No JVD present. Cardiovascular: Normal heart sounds. Exam reveals no gallop and no friction rub. No murmur heard. Pulmonary/Chest: Breath sounds normal. He has no wheezes. He has no rales. Abdominal: Bowel sounds are normal. He exhibits no distension. There is no tenderness. There is no guarding. Musculoskeletal: He exhibits no edema. Lymphadenopathy: He has no cervical adenopathy. Neurological: He is alert and oriented to person, place, and time. Skin: Skin is warm and dry. He is not diaphoretic. Attending exam Constitutional:in no distress. HENT: Head: Normocephalic Neck: Neck supple. No JVD present. Cardiovascular: RRR Pulmonary/Chest: no wheeze Abdominal: nontender Musculoskeletal: He exhibits no edema. Neurological: He is alert and oriented to person, place, and time. R rad cath site clean Telemetry: sinus bradycardia in 50s, few PVCs EKG: no new ischemic changes Most recent echo: no echo on file. Echo from [place] showed EF 53%, and stage II diastolic dysfunction. IANDO: Date 03/26/19 07 - 03/27/1961 03/27/19 07 - 03/28/19 0659 Shift 1051-8845 9537-9548 3348-1654 24 Hour Total 3241-0178 5739-9085 9583-1436 24 Hour Total INTAKE PO 480 200 680 240 240 PO 480 200 680 240 240 IV 117.2 333 295 745.2 Heparin IV 26.9 139 133 298.9 Amiodarone 90.3 194 162 446.3 Shift Total 597.2 624 932 4914.2 240 240 OUTPUT Urine 550 026 762 6077 250 250 Void (ml) 550 243 676 2785 250 250 # of BMs Number of BMs 0 x 0 x 0 x 0 x Shift Total 550 023 534 1981 250 250 Weight (kg) 105.9 105.9 105.9 105.9 105.9 105.9 105.9 105.9 Labs AND Imaging reviewed: DATA: BLOOD GAS: No results for input(s): VPH, VPC2, VPO2C, RESPHCO3, BASEX, S2LHZSES, PH, PCO2, RESPHCO3, BASEX, [id number] in the last 168 hours. Invalid input(s): PO2C CBC: Recent Labs 03/27/1924403/26/1921903/25/191929 WBC 9.46* 10.20* 11.29* HB 13.9 14.1 15.0 HCT 40.2 40.6 42.1 PLT 247 218 231 MCV 98.8* 97.1* 95.0 COAG: Recent Labs 03/27/1992903/27/1924403/26/19202103/26/1992403/26/1921903/25/191929 APTT 45.6* 61.2* 39.3* 54.7* 33.6* 25.5 INR -- -- -- -- -- 1.04 BMP: Recent Labs 03/27/1924403/26/1921903/25/191929 GLUC 119* 110* 101* NA 156* 141 138 K 3.2* 3.5 3.2* CHLOR 117* 110* 109* CO2 25 27 24 ANION 17* 8 8 BUN 12 10 11 CREAT 0.85 0.82 0.80 CHEM: Recent Labs 03/27/1924403/26/1921903/25/191929 ALB 3.0* 3.1* -- TPROT 5.7* 6.0* -- CA 8.6 8.4* 8.8 MG -- -- 1.8 HEPATIC: Recent Labs 03/27/1924403/26/19219 ALKPHOS 58 59 ALT 28 29 AST 19 14* TBILI 0.3 0.4 URINALYSIS: No results for input(s): PH, SPGR, UGLUC, UBILI, UKET, UHB, UPROT, UROBIL, UWBC, SSA in the last 168 hours. Invalid input(s): NITR CARDIAC: No results for input(s): CKTEST, CKMB, CKMBP, TROPT, PBNP in the last 168 hours. Lipid Panel: No results found for: CHOL, HDL, LDL, TG Current active therapies: Current Facility-Administered Medications Medication Dose Route Frequency - atorvastatin 40 mg tab(s) (LIPITOR) 40 mg ORAL AT BEDTIME - latanoprost 0.005 % 1 Drop (XALATAN) 1 Drop BOTH EYES BID (0600/2100) - potassium chloride ER 20-40 mEq tab(s) (K-DUR, KLOR-CON) 20-40 mEq ORAL/FEEDING TUBE PRN Or - potassium chloride iv piggyback 20 mEq/100 mL 20 mEq INTRAVENOUS PRN - magnesium sulfate in water 2 g in sterile water 50 ml 2 g INTRAVENOUS PRN - sodium phosphate 45 mmol in NaCl 0.9% 250 mL 45 mmol INTRAVENOUS PRN - calcium gluconate 4 g in NaCl 0.9% 250 mL 4 g INTRAVENOUS PRN - dextrose 40 % 15 g 15 g ORAL PRN Or - glucagon 1 mg injection (GLUCAGEN) 1 mg INTRAMUSCULAR PRN Or - dextrose 50 % 12.5 g injection 12.5 g INTRAVENOUS PRN - insulin lispro pen (rapid acting) (HumaLOG KWIKPEN) SUBCUTANEOUS w MEALS - heparin iv infusion (LOW DOSE ACS/NOMOGRAM) 25,000 units in NaCl 0.45% 250 mL PREMIX 0-3,000 Units/hr INTRAVENOUS CONTINUOUS And - heparin RATE CHANGE bolus 1,000-4,000 Units for subtherapeutic aptt results 1,000-4,000 Units INTRAVENOUS PRN - brimonidine 0.2 % 1 Drop (ALPHAGAN) 1 Drop LEFT EYE BID - amiodarone 360 mg in D5W 200 mL (NEXTERONE) 0.5 mg/min INTRAVENOUS CONTINUOUS - ALPRAZolam 0.5 mg tab(s) (XANAX) 0.5 mg ORAL HS PRN - aspirin 81 mg chewable tab(s) 81 mg ORAL DAILY - iv contrast (radiology procedure) INTRAVENOUS DIRECTED PRN - iv contrast (radiology procedure) INTRAVENOUS DIRECTED PRN - lisinopril 10 mg tab(s) (ZESTRIL, PRINIVIL) 10 mg ORAL DAILY - metoprolol tartrate (short acting) 50 mg tab(s) (LOPRESSOR) 50 mg ORAL BID - mupirocin 2 % ointment (BACTROBAN) TOPICAL BID Assessment/Plan Reviewed in its entirety and amended as appropriate on 03/27/19 ASSESSMENT ANDPLAN Coronary Artery Disease s/p HAYDEN in 10/2107 - Multivessel Disease ? The patient presented to [facility] with VT that required a shock ? Troponin peaked at 0.099 ? Echo images reviewed and didn't show significant WMA ? Heart cath images reviewed and showed multivessel disease which requires CABG ? Cardiothoracic surgery consulted ? Likely, the surgery will be delayed for 4 more days due to recent use of Brilinta ? Last dose of Brilinta on 03/25/2019 at morning ? ASA, statin, lopressor, lisinopril, and heparin drip Ventricular Tachycardia ? Patient presented to [facility] with VT that required a shock ? Currently in normal sinus rhythm ? Tele doesn't show frequent tachy arrhythmias ? Monitor and replace electrolytes ? Amiodarone IV and lopressor ? Suspect VT related to acute ischemia, doubt will need ICD: will ask EP to see post cabg in hosp for input Hypertension ? BP is running high ? Increased lopressor dose to his home dose, 50 mg bid ? Increased lisinopril dose to his home dose, 10 mg qd ? Monitor BP from both arms due to left subclavian artery stenosis Hypernatremia ? 03/27/2019: Na 156, was 141 the day before ? no real reason for this hypernatremia and the patient is asymptomatic and doesn't look dehydrated-suspect lab error ? Repeat BMP for evaluation Hyperlipidemia ? Continue statin DM ? The patient denies history of DM ? A1C is 6.7 ? Blood glucose well controlled for now ? Outpatient management with PCP Tobacco Use Disorder ? Discussed the need to quit smoking Left Subclavian Artery Stenosis ? No signs of left arm ischemia ? Stable ? Measure BP from both arms. Left arm is expected to give false lower numbers ? Vascular surgery input is appreciated Glaucoma of Right Eye ? Continue home eye drops and medications Signed: Harmony Recio DO PGY1 Pager: [phone] Date: March 27, 2019 Time: 10:21 AM I saw and evaluated the patient. Discussed with the resident and agree with resident's findings and plan as documented in the resident's note. Rigo Roland MD Pager [phone] Recommendations are not finalized until co-signed by Staff physician. Previous Version Norah Ortega RN, RN 03/27/2019 10:36 AM Signed CARE MANAGEMENT PROGRESS NOTE SERVICE DATE: 03/27/2019 SERVICE TIME: 10:36 AM LOS: 2 days Needs Prior to Discharge: Discharge Prescriptions;Home Care Order [facility] has accepted. Disch plan: Home with and [facility]. SIGNATURE: Norah Ortega RN PATIENT NAME: Rigo Diaz DATE: March 27, 2019 TIME: 10:36 AM PAGER/CONTACT #: [phone] Елена Land 03/27/2019 11:11 AM Signed CARE MANAGEMENT PROGRESS NOTE SERVICE DATE: 03/27/2019 SERVICE TIME: 1100 LOS: 2 days IM letter given to patient on [id number]. SIGNATURE: Елена Land PATIENT NAME: Rigo Diaz DATE: March 27, 2019 TIME: 11:10 AM PAGER/CONTACT #: [phone] Rigo Roland MD 03/27/2019 3:17 PM Signed Result Noted. Patient is currently hospitalized and managed by the in-patient team. MD Rigo Lowery MD 03/28/2019 12:19 PM Signed Cardiovascular Intensive Care Progress Note March 28, 2019 Patient Name: Rigo Diaz Patient Location: [id number]/[facility]- 322* Admission Date: 03/25/2019 Length of Stay: 3 Primary Service: Cardiovascular Intensive Care Case Background: 68 year old White male PMHx: CAD s/p HAYDEN in 10/2017, HTN, hyperlipidemia, DM type 2, left subclavian artery stenosis, GERD, and glaucoma of the right eye. He is active smoker. Presented on 03/25/2019, referred from [facility] for evaluation of CABG. Hosp. Course: On 03/23/2019, the patient had diaphoresis, palpitations, dizziness, and collapsed at home. He was rushed by EMS to [facility] and was found to have VT. Shocked once and started amiodarone loading with return of NSR. The patient had minimal troponin increase, peaked at 0.099. He had a heart cath on 03/25 which showed multivessel disease. Transferred to [facility] for CABG. Last dose of Brilinta was given on 03/25 a morning. Patient admitted to CVICU in a stable condition. Echo and left heart cath images at [place] were reviewed. Patient has been evaluated by cardiothoracic surgery and cleared for surgery about 7 days after the last Brilinta dose. Vascular surgery consulted and evaluated the patient for carotid stenosis and left subclavian artery stenosis. CTA of the neck showed right lung nodule. No current facility-administered medications on file prior to encounter. Current Outpatient Medications on File Prior to Encounter: ALPHAGAN P 0.1 % drop USE 1 DROP IN THE LEFT EYE TWICE A DAY latanoprost (XALATAN) 0.005 % ophthalmic solution USE 1 DROP IN THE LEFT EYE DAILY AT BEDTIME, DISCARD AFTER 42 DAYS lisinopril 10 mg ORAL tablet Take 1 tablet by mouth once daily. simvastatin (ZOCOR) 40 mg ORAL tablet Take 1 tablet by mouth daily at bedtime. omega-3 fatty acids 1,000 mg ORAL Cap Take 1 capsule by mouth twice daily. METOPROLOL 50 MG TAB Take one(1) tablet two(2) times daily. multivitamins w-minerals/lut(CENTRU M SILVER TAB) Take one(1) tablet daily. niacin(NIASPAN 500 MG TAB) Take one(1) tablet daily aspirin(ECOTRIN LOW STRENGTH 81 MG TAB) Take one(1) tablet daily. IBUPROFEN 200 MG TAB as necessary taking 8136-0010 mg daily Interval History for 03/28/19: Patient seen and examined in the AM. No overnight events. The patient denies chest pain or SOB. States that he feels completely fine. He is aware that CABG will be done on Monday or Monday. Today he has cough. The patient has right lung nodule that was discovered incidentally on CTA of the neck. Discussed with the patient that he needs outpatient follow up. C/o some lung congestion; no chest pain Review of Systems: Review of Systems Constitutional: Negative for chills, diaphoresis and fever. HENT: Negative for congestion and sore throat. Eyes: Negative for blurred vision. Respiratory: Positive for cough. Negative for shortness of breath and wheezing. Cardiovascular: Negative for chest pain, palpitations, orthopnea, leg swelling and PND. Gastrointestinal: Negative for abdominal pain, constipation, diarrhea, nausea and vomiting. Genitourinary: Negative for dysuria, frequency and urgency. Neurological: Negative for dizziness, focal weakness and headaches. tele NSR BP 162/74 Pulse 66 Temp (Src) 96.6 (Temporal) Resp 17 Ht 6' 4 (1.93m) Wt 233 lb 7.5 oz (105.9kg) SpO2 100% BMI 28.43 kg/(m2). O2 Therapy: Room Air Temp (24hrs), Av.3 ?C (97.4 ?F), Min:35.9 ?C (96.6 ?F), Max:36.7 ?C (98.1 ?F) Physical Exam Constitutional: He is oriented to person, place, and time and well-developed, well-nourished, and in no distress. HENT: Head: Normocephalic and atraumatic. Mouth/Throat: No oropharyngeal exudate. Eyes: Pupils are equal, round, and reactive to light. EOM are normal. No scleral icterus. Neck: Neck supple. No JVD present. Cardiovascular: Normal heart sounds. Exam reveals no gallop and no friction rub. No murmur heard. Pulmonary/Chest: He has no wheezes. He has no rales. Tight breathing Abdominal: Bowel sounds are normal. He exhibits no distension. There is no tenderness. There is no guarding. Musculoskeletal: He exhibits no edema. Right radial catheter side with no bleeding. No diminished sensation of the right forearm or right wrist. Muscle power (squeeze fingers and paper test) are normal 5/5. Right hand and wrist are warm, dry. Capillary refill of right hand fingers is 2 seconds. Lymphadenopathy: He has no cervical adenopathy. Neurological: He is alert and oriented to person, place, and time. Skin: Skin is warm and dry. He is not diaphoretic. Attending addendum- Lungs-diminished breath sounds but no wheeze COR RRR Tr edema Awake and alert Telemetry: sinus bradycardia in 50s, few PVCs EKG: no new ischemic changes Most recent echo: no echo on file. Echo from [place] showed EF 53%, and stage II diastolic dysfunction. IANDO: Date 03/27/19699 - 03/28/19 0659 03/28/19 07 - 03/29/19 0659 Shift 0995-5031 5864-8057 3303-5470 24 Hour Total 7799-4306 1209-9705 3633-1581 24 Hour Total INTAKE PO 249 029 0062 PO 140 206 3330 IV 423 336 759 Heparin IV 202 165 367 Amiodarone 221 171 392 Shift Total 840 3215 130 9158 OUTPUT Urine 669 883 6465 2450 Void (ml) 103 653 8053 2450 # of BMs Number of BMs 0 x 0 x Shift Total 244 211 8958 2450 Weight (kg) 105.9 105.9 105.9 105.9 105.9 105.9 105.9 105.9 Labs AND Imaging reviewed: DATA: BLOOD GAS: No results for input(s): VPH, VPC2, VPO2C, RESPHCO3, BASEX, B2KTJJLP, PH, PCO2, RESPHCO3, BASEX, B9OAOPBY in the last 168 hours. Invalid input(s): PO2C CBC: Recent Labs 03/28/19 0548 03/27/19 0245 03/26/19 0220 03/25/19 1930 WBC 8.98 9.46* 10.20* 11.29* HB 13.6* 13.9 14.1 15.0 HCT 39.1* 40.2 40.6 42.1 PLT 234 247 218 231 MCV 97.5* 98.8* 97.1* 95.0 COAG: Recent Labs 03/28/19 0548 03/27/19 2255 03/27/19 1620 03/27/19 0930 03/27/1924403/26/19202103/26/1992403/26/1921903/25/191929 APTT 68.3* 62.8* 65.6* 45.6* 61.2* 39.3* 54.7* 33.6* 25.5 INR -- -- -- -- -- -- -- -- 1.04 BMP: Recent Labs 03/28/19 0548 03/27/19 0930 03/27/1924403/26/1921903/25/191929 GLUC 129* 154* 119* 110* 101* NA 140 140 156* 141 138 K 3.9 3.9 3.2* 3.5 3.2* CHLOR 108* 110* 117* 110* 109* CO2 26 26 25 27 24 ANION 10 8 17* 8 8 BUN 14 11 12 10 11 CREAT 0.89 0.91 0.85 0.82 0.80 CHEM: Recent Labs 03/28/19 0548 03/27/1930 03/27/1924403/26/1921903/25/191929 ALB 3.1* -- 3.0* 3.1* -- TPROT 6.2* -- 5.7* 6.0* -- CA 8.8 9.2 8.6 8.4* 8.8 MG -- -- -- -- 1.8 HEPATIC: Recent Labs 03/28/19 0548 03/27/1924403/26/19219 ALKPHOS 64 58 59 ALT 35 28 29 AST 21 19 14* TBILI 0.2 0.3 0.4 URINALYSIS: Recent Labs 03/27/19 1700 SPGR 1.016 UGLUC NEGATIVE UBILI NEGATIVE UKET NEGATIVE UPROT NEGATIVE UROBIL 1.0 CARDIAC: No results for input(s): CKTEST, CKMB, CKMBP, TROPT, PBNP in the last 168 hours. Lipid Panel: Cholesterol, Total Date Value Ref Range Status 03/28/2019 86 0 - 199 mg/dL Final Comment: <200 Desirable 200-240 Borderline >240 High HDL Cholesterol Date Value Ref Range Status 03/28/2019 36 >40 mg/dL Final LDL Calculated Date Value Ref Range Status 03/28/2019 13 mg/dL Final Comment: No CAD and with fewer than 2 CAD risk factors <160 mg/dL No CAD but with 2 or more CAD risk factors <130 mg/dL Definite CAD or other atherosclerotic disease <100 mg/dL Triglyceride Date Value Ref Range Status 03/28/2019 183 (H) 0 - 149 mg/dL Final Comment: < 200 Desirable Result invalid if not a fasting specimen. Current active therapies: Current Facility-Administered Medications Medication Dose Route Frequency - atorvastatin 40 mg tab(s) (LIPITOR) 40 mg ORAL AT BEDTIME - latanoprost 0.005 % 1 Drop (XALATAN) 1 Drop BOTH EYES BID (599/2099) - potassium chloride ER 20-40 mEq tab(s) (K-DUR, KLOR-CON) 20-40 mEq ORAL/FEEDING TUBE PRN Or - potassium chloride iv piggyback 20 mEq/100 mL 20 mEq INTRAVENOUS PRN - magnesium sulfate in water 2 g in sterile water 50 ml 2 g INTRAVENOUS PRN - sodium phosphate 45 mmol in NaCl 0.9% 250 mL 45 mmol INTRAVENOUS PRN - calcium gluconate 4 g in NaCl 0.9% 250 mL 4 g INTRAVENOUS PRN - dextrose 40 % 15 g 15 g ORAL PRN Or - glucagon 1 mg injection (GLUCAGEN) 1 mg INTRAMUSCULAR PRN Or - dextrose 50 % 12.5 g injection 12.5 g INTRAVENOUS PRN - insulin lispro pen (rapid acting) (HumaLOG KWIKPEN) SUBCUTANEOUS w MEALS - heparin iv infusion (LOW DOSE ACS/NOMOGRAM) 25,000 units in NaCl 0.45% 250 mL PREMIX 0-3,000 Units/hr INTRAVENOUS CONTINUOUS And - heparin RATE CHANGE bolus 1,000-4,000 Units for subtherapeutic aptt results 1,000-4,000 Units INTRAVENOUS PRN - brimonidine 0.2 % 1 Drop (ALPHAGAN) 1 Drop LEFT EYE BID - amiodarone 360 mg in D5W 200 mL (NEXTERONE) 0.5 mg/min INTRAVENOUS CONTINUOUS - ALPRAZolam 0.5 mg tab(s) (XANAX) 0.5 mg ORAL HS PRN - aspirin 81 mg chewable tab(s) 81 mg ORAL DAILY - metoprolol tartrate (short acting) 50 mg tab(s) (LOPRESSOR) 50 mg ORAL BID - mupirocin 2 % ointment (BACTROBAN) TOPICAL BID - lisinopril 20 mg tab(s) (ZESTRIL, PRINIVIL) 20 mg ORAL DAILY - ipratropium-albuterol 3 mL nebulizer solution (DUONEB) 3 mL INHALATION q 4 H while awake Assessment/Plan Reviewed in its entirety and amended as appropriate on 03/28/19 ASSESSMENT ANDPLAN Coronary Artery Disease s/p HAYDEN in 10/2107 - Multivessel Disease ? The patient presented to [facility] with VT that required a shock ? Troponin peaked at 0.099 ? Echo images reviewed and didn't show significant WMA ? Heart cath images reviewed and showed multivessel disease which requires CABG ? Cardiothoracic surgery consulted ? CABG early next week to allow Brilinta to clear system ? Last dose of Brilinta on 03/25/2019 at morning ? ASA, statin, lopressor, lisinopril, and heparin drip Ventricular Tachycardia ? Patient presented to [facility] with VT that required a shock ? Currently in normal sinus rhythm ? Tele doesn't show frequent tachy arrhythmias ? Monitor and replace electrolytes ? Amiodarone and lopressor ? Suspect VT related to acute ischemia, doubt will need ICD: will ask EP to see post cabg in hosp for input Hypertension ? BP is running high ? Increased lopressor dose to his home dose, 50 mg bid ? Increased lisinopril dose to his home dose, 10 mg qd ? Monitor BP from both arms due to left subclavian artery stenosis ? 03/28/2019: BP is still not well controlled, increased lisinopril to 20 mg qd Hypernatremia - False ? 03/27/2019: Na 156, was 141 the day before ? no real reason for this hypernatremia and the patient is asymptomatic and doesn't look dehydrated-suspect lab error ? Repeat BMP with Na 140 Hyperlipidemia ? Continue statin DM ? The patient denies history of DM ? A1C is 6.7 ? Blood glucose well controlled for now ? Outpatient management with PCP Tobacco Use Disorder-clinically moderate COPD PFTs pending; if signif copd suggest pulm med consult prior to cabg ? Discussed the need to quit smoking Left Subclavian Artery Stenosis ? No signs of left arm ischemia ? Stable ? Measure BP from both arms. Left arm is expected to give false lower numbers ? Vascular surgery input is appreciated Glaucoma of Right Eye ? Continue home eye drops and medications Cough ? The patient has COPD with cough ? Ordered new XR of chest for evaluation Pulmonary Nodule ? Incidental discovery of right lung nodule on CTA of the neck ? Patient will need outpatient follow up ? Discussed with the patient today I saw and evaluated the patient. Discussed with the resident and agree with resident's findings and plan as documented in the resident's note. Rigo Roland MD Pager [phone] Okay for tele on current meds Signed: Harmony Recio DO PGY1 Pager: [phone] Date: March 28, 2019 Time: 8:56 AM Recommendations are not finalized until co-signed by Staff physician. Previous Version Harmony Paez DO, DO 03/29/2019 4:45 PM Signed CVICU TRANSFER NOTE SERVICE DATE: 03/28/2019 SERVICE TIME: 8:56 AM Admission Date: 03/25/2019 AGE: [age] year old LOS: 3 days REASON FOR HOSPITALIZATION: Brief summary/ICU course with post-transfer plan included: Case Background: 68 year old White male PMHx: CAD s/p HAYDEN in 10/2017, HTN, hyperlipidemia, DM type 2, left subclavian artery stenosis, GERD, and glaucoma of the right eye. He is active smoker. Presented on 03/25/2019, referred from [facility] for evaluation of CABG. ? Hosp. Course: On 03/23/2019, the patient had diaphoresis, palpitations, dizziness, and collapsed at home. He was rushed by EMS to [facility] and was found to have VT. Shocked once and started amiodarone loading with return of NSR. The patient had minimal troponin increase, peaked at 0.099. He had a heart cath on 03/25 which showed multivessel disease. Transferred to [facility] for CABG. Last dose of Brilinta was given on 03/25 a morning. Patient admitted to CVICU in a stable condition. Echo and left heart cath images at [place] were reviewed. Patient has been evaluated by cardiothoracic surgery and cleared for surgery about 7 days after the last Brilinta dose. Vascular surgery consulted and evaluated the patient for carotid stenosis and left subclavian artery stenosis. CTA of the neck showed right lung nodule. ASSESSMENT ANDPLAN Coronary Artery Disease s/p HAYDEN in 10/2107 - Multivessel Disease ? The patient presented to [facility] with VT that required a shock ? Troponin peaked at 0.099 ? Echo images reviewed and didn't show significant WMA ? Heart cath images reviewed and showed multivessel disease which requires CABG ? Cardiothoracic surgery consulted ? Likely, the surgery will be delayed for 4 more days due to recent use of Brilinta ? Last dose of Brilinta on 03/25/2019 at morning ? ASA, statin, lopressor, lisinopril, and heparin drip ? Ventricular Tachycardia ? Patient presented to [facility] with VT that required a shock ? Currently in normal sinus rhythm ? Tele doesn't show frequent tachy arrhythmias ? Monitor and replace electrolytes ? Amiodarone and lopressor ? Suspect VT related to acute ischemia, doubt will need ICD: will ask EP to see post cabg in hosp for input ? Hypertension ? BP is running high ? Increased lopressor dose to his home dose, 50 mg bid ? Increased lisinopril dose to his home dose, 10 mg qd ? Monitor BP from both arms due to left subclavian artery stenosis ? 03/28/2019: BP is still not well controlled, increased lisinopril to 20 mg qd ? Hypernatremia - False ? 03/27/2019: Na 156, was 141 the day before ? no real reason for this hypernatremia and the patient is asymptomatic and doesn't look dehydrated-suspect lab error ? Repeat BMP with Na 140 ? Hyperlipidemia ? Continue statin ? DM ? The patient denies history of DM ? A1C is 6.7 ? Blood glucose well controlled for now ? Outpatient management with PCP ? Tobacco Use Disorder ? Discussed the need to quit smoking ? Left Subclavian Artery Stenosis ? No signs of left arm ischemia ? Stable ? Measure BP from both arms. Left arm is expected to give false lower numbers ? Vascular surgery input is appreciated ? Glaucoma of Right Eye ? Continue home eye drops and medications ? Cough ? The patient has COPD with cough ? Ordered new XR of chest for evaluation ? Pulmonary Nodule ? Incidental discovery of right lung nodule on CTA of the neck ? Patient will need outpatient follow up ? Discussed with the patient today ? CONSULTS: Treatment Team: Attending Provider: Rigo Roland Consulting: Colt Macias Consulting: Sydnee Weems Primary Service: Roland Hein Admit/Consults Orders Placed This Encounter DIET CARBOHYDRATE CONTROLLED Standing Status: Standing Number of Occurrences: 1 Order Specific Question: Carbohydrate Control Answer: 3-5 CARBS/MEAL INPATIENT MEDICATIONS: Current Facility-Administered Medications Medication Dose Route Frequency - atorvastatin 40 mg tab(s) (LIPITOR) 40 mg ORAL AT BEDTIME - latanoprost 0.005 % 1 Drop (XALATAN) 1 Drop BOTH EYES BID (0600/2100) - potassium chloride ER 20-40 mEq tab(s) (K-DUR, KLOR-CON) 20-40 mEq ORAL/FEEDING TUBE PRN Or - potassium chloride iv piggyback 20 mEq/100 mL 20 mEq INTRAVENOUS PRN - magnesium sulfate in water 2 g in sterile water 50 ml 2 g INTRAVENOUS PRN - sodium phosphate 45 mmol in NaCl 0.9% 250 mL 45 mmol INTRAVENOUS PRN - calcium gluconate 4 g in NaCl 0.9% 250 mL 4 g INTRAVENOUS PRN - dextrose 40 % 15 g 15 g ORAL PRN Or - glucagon 1 mg injection (GLUCAGEN) 1 mg INTRAMUSCULAR PRN Or - dextrose 50 % 12.5 g injection 12.5 g INTRAVENOUS PRN - insulin lispro pen (rapid acting) (HumaLOG KWIKPEN) SUBCUTANEOUS w MEALS - heparin iv infusion (LOW DOSE ACS/NOMOGRAM) 25,000 units in NaCl 0.45% 250 mL PREMIX 0-3,000 Units/hr INTRAVENOUS CONTINUOUS And - heparin RATE CHANGE bolus 1,000-4,000 Units for subtherapeutic aptt results 1,000-4,000 Units INTRAVENOUS PRN - brimonidine 0.2 % 1 Drop (ALPHAGAN) 1 Drop LEFT EYE BID - amiodarone 360 mg in D5W 200 mL (NEXTERONE) 0.5 mg/min INTRAVENOUS CONTINUOUS - ALPRAZolam 0.5 mg tab(s) (XANAX) 0.5 mg ORAL HS PRN - aspirin 81 mg chewable tab(s) 81 mg ORAL DAILY - metoprolol tartrate (short acting) 50 mg tab(s) (LOPRESSOR) 50 mg ORAL BID - mupirocin 2 % ointment (BACTROBAN) TOPICAL BID - lisinopril 20 mg tab(s) (ZESTRIL, PRINIVIL) 20 mg ORAL DAILY - ipratropium-albuterol 3 mL nebulizer solution (DUONEB) 3 mL INHALATION q 4 H while awake PROBLEMS: ACTIVE PROBLEM LIST Unspecified Disorder of Skin and Subcutaneous Tissue Type II Or Unspecified Type Diabetes Mellitus Without Mention of Complication, Not Stated As Uncontrolled Unspecified Essential Hypertension Other and Unspecified Hyperlipidemia Cardiac Dysrhythmia, Unspecified Tobacco Use Disorder Psychosexual Dysfunction With Inhibited Sexual Excitement Obesity, Unspecified Coronary Atherosclerosis of Unspecified Type of Vessel, [place] Or Graft Unspecified Hearing Loss Lumbago Peripheral Vascular Disease, Unspecified (Hcc) Congenital Pes Planus Djd (Degenerative Joint Disease) 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 BP 162/74 Pulse 66 Temp (Src) 96.6 (Temporal) Resp 17 Ht 6' 4 (1.93m) Wt 233 lb 7.5 oz (105.9kg) SpO2 100% BMI 28.43 kg/(m2). O2 Therapy: Room Air Temp (24hrs), Av.3 ?C (97.4 ?F), Min:35.9 ?C (96.6 ?F), Max:36.7 ?C (98.1 ?F) PHYSICAL EXAM PERFORMED: Constitutional: He is oriented to person, place, and time and well-developed, well-nourished, and in no distress. HENT: Head: Normocephalic and atraumatic. Mouth/Throat: No oropharyngeal exudate. Eyes: Pupils are equal, round, and reactive to light. EOM are normal. No scleral icterus. Neck: Neck supple. No JVD present. Cardiovascular: Normal heart sounds. Exam reveals no gallop and no friction rub. No murmur heard. Pulmonary/Chest: He has no wheezes. He has no rales. Tight breathing Abdominal: Bowel sounds are normal. He exhibits no distension. There is no tenderness. There is no guarding. Musculoskeletal: He exhibits no edema. Right radial catheter side with no bleeding. No diminished sensation of the right forearm or right wrist. Muscle power (squeeze fingers and paper test) are normal 5/5. Right hand and wrist are warm, dry. Capillary refill of right hand fingers is 2 seconds. Lymphadenopathy: He has no cervical adenopathy. Neurological: He is alert and oriented to person, place, and time. Skin: Skin is warm and dry. He is not diaphoretic. BLOOD GAS: No results for input(s): VPH, VPC2, VPO2C, RESPHCO3, BASEX, Z1EDPLXO, PH, PCO2, RESPHCO3, BASEX, G4FCPNXC in the last 168 hours. Invalid input(s): PO2C CBC: Recent Labs 03/28/19 0548 03/27/1924403/26/1921903/25/191929 WBC 8.98 9.46* 10.20* 11.29* HB 13.6* 13.9 14.1 15.0 HCT 39.1* 40.2 40.6 42.1 PLT 234 247 218 231 MCV 97.5* 98.8* 97.1* 95.0 COAG: Recent Labs 03/28/19 0548 03/27/19225403/27/19 16203/27/1992903/27/[id number]/26/[id number] APTT 68.3* 62.8* 65.6* 45.6* 61.2* 39.3* 54.7* 33.6* 25.5 INR -- -- -- -- -- -- -- -- 1.04 BMP: Recent Labs 03/28/19 0503/27/1992903/27/1924403/26/1921903/25/191929 GLUC 129* 154* 119* 110* 101* NA 140 140 156* 141 138 K 3.9 3.9 3.2* 3.5 3.2* CHLOR 108* 110* 117* 110* 109* CO2 26 26 25 27 24 ANION 10 8 17* 8 8 BUN 14 11 12 10 11 CREAT 0.89 0.91 0.85 0.82 0.80 CHEM: Recent Labs 03/28/19 0503/27/19 0930 03/27/1924403/26/1921903/25/191929 ALB 3.1* -- 3.0* 3.1* -- TPROT 6.2* -- 5.7* 6.0* -- CA 8.8 9.2 8.6 8.4* 8.8 MG -- -- -- -- 1.8 HEPATIC: Recent Labs 03/28/19 0548 03/27/19 0245 03/26/19 0220 ALKPHOS 64 58 59 ALT 35 28 29 AST 21 19 14* TBILI 0.2 0.3 0.4 Lipid Panel: Cholesterol, Total Date Value Ref Range Status 03/28/2019 86 0 - 199 mg/dL Final Comment: <200 Desirable 200-240 Borderline >240 High HDL Cholesterol Date Value Ref Range Status 03/28/2019 36 >40 mg/dL Final LDL Calculated Date Value Ref Range Status 03/28/2019 13 mg/dL Final Comment: No CAD and with fewer than 2 CAD risk factors <160 mg/dL No CAD but with 2 or more CAD risk factors <130 mg/dL Definite CAD or other atherosclerotic disease <100 mg/dL Triglyceride Date Value Ref Range Status 03/28/2019 183 (H) 0 - 149 mg/dL Final Comment: < 200 Desirable Result invalid if not a fasting specimen. URINALYSIS: Recent Labs 03/27/19 1700 SPGR 1.016 UGLUC NEGATIVE UBILI NEGATIVE UKET NEGATIVE UPROT NEGATIVE UROBIL 1.0 CARDIAC: No results for input(s): CKTEST, CKMB, CKMBP, TROPT, PBNP in the last 168 hours. Signed: Harmony Recio DO PGY1 Pager: [phone] Date: March 28, 2019 Time: 8:58 AM Elizabet Kwon, RN, RN 03/28/2019 2:40 PM Signed [id number] Report called to [facility] on 4200 1420 Patient transferred to 4201 via WC and monitor. Pt in bed with call light. Tele connected and RN in room. Amio and Heparin infusing. Charo Farrell APRN.EMBLEM CUTTER, EMBLEM CUTTER 03/29/2019 1:13 PM Signed PROGRESS NOTE CARDIOLOGY SERVICE SERVICE DATE: 03/29/2019 SERVICE TIME: 1:03 PM Subjective INTERIM HISTORY: Mr. Diaz is a 68-year-old gentleman with a past medical history significant for coronary artery disease remote [place] with stenting, hypertension, hyperlipidemia, left subclavian artery sternal doses, GERD. He presented to [facility] with palpitations dizziness and a syncopal event. He was found by EMS to be in [place] received a defibrillation was started on IV amiodarone sinus rhythm was restored and has been maintained. He did undergo cardiac catheterization which identified multivessel coronary disease and he was transferred to [facility] for CT surgery consult Was admitted to the intensive care unit seen in consultation by Dr. Roland continued with amiodarone drip as well as IV heparin drip. Troponin peaked at 0.099 he's had no complaints of chest discomfort. He had been on Brilinta prior to his cardiac catheterization therefore he needs a washout, Prior to undergoing coronary artery bypass grafting In regards to the ventricular tachycardia this is felt to be ischemic in nature he will continue with the IV amiodarone and heparin until surgery. is recommended that EP evaluate post surgery He is seen today sitting up at the bedside offering no complaints of chest pain, palpitations, tach palpitations syncope nor near syncope CARDIAC STATUS: Tele SR HR 50-80bpm No CP No SOB No dizziness No lightheadedness No HERON Objective PHYSICAL EXAM: Body mass index is 28.42 kg/m?. O2 Therapy: Room Air No data recorded Patient Vitals for the past 24 hrs: BP Temp Temp src Pulse Resp SpO2 03/29/19 1214 ? ? ? 68 18 97 % 03/29/19 1003 136/6 (more content not included)... Normal [facility] Vital Signs Date Time Vital Sign Value Performing Clinician Faci lity 12-17-2024 22:53-0400 Body temperature 98.2 [degF] Dr. Carmen Mcleod MD Work Phone: [facility] 12-17-2024 22:53-0400 Diastolic blood pressure 86 mm[Hg] Dr. Carmen Mcleod MD Work Phone: [facility] 12-17-2024 22:53-0400 Heart rate 78 /min Dr. Carmen Mcleod MD Work Phone: [facility] 12-17-2024 22:53-0400 Respiratory rate 16 /min Dr. Carmen Mcleod MD Work Phone: [facility] 12-17-2024 22:53-0400 SaO2% (BldA) [Mass fraction] 98 % Dr. Carmen Mcleod MD Work Phone: [facility] 12-17-2024 22:53-0400 Systolic blood pressure 133 mm[Hg] Dr. Carmen Mcleod MD Work Phone: [facility] 12-17-2024 17:47-0400 Body height 193.[address] Carmen Mcleod MD Work Phone: [facility] 12-17-2024 17:47-0400 Body mass index (BMI) [Ratio] 28.2 kg/m2 Dr. Carmen Mcleod MD Work Phone: [facility] 12-17-2024 17:47-0400 Body weight 105.[address] Carmen Mcleod MD Work Phone: [facility] 09-02-2024 12:47-0500 Body temperature 98 [degF] Dr. Carmen Mcleod MD Work Phone: [facility] 09-02-2024 12:47-0500 Diastolic blood pressure 60 mm[Hg] Dr. Carmen Mcleod MD Work Phone: [facility] 09-02-2024 12:47-0500 Heart rate 76 /min Dr. Carmen Mcleod MD Work Phone: [facility] 09-02-2024 12:47-0500 SaO2% (BldA) [Mass fraction] 97 % Dr. Carmen Mcleod MD Work Phone: [facility] 09-02-2024 12:47-0500 Systolic blood pressure 100 mm[Hg] Dr. Carmen Mcleod MD Work Phone: [facility] 07-30-2023 10:22-0500 Body height 193.[address] Carmen Mcleod Work Phone: [facility] 07-30-2023 10:22-0500 Body mass index (BMI) [Ratio] 29.9 kg/m2 Dr. Carmen Mcleod Work Phone: [facility] 07-30-2023 10:22-0500 Body temperature 97.2 [degF] Dr. Carmen Mcleod Work Phone: [facility] 07-30-2023 10:22-0500 Body weight 111.[address] Carmen Mcleod Work Phone: [facility] 07-30-2023 10:22-0500 Diastolic blood pressure 78 mm[Hg] Dr. Carmen Mcleod Work Phone: [facility] 07-30-2023 10:22-0500 Heart rate 62 /min Dr. Carmen Mcleod Work Phone: [facility] 07-30-2023 10:22-0500 Respiratory rate 14 /min Dr. Carmen Mcleod Work Phone: [facility] 07-30-2023 10:22-0500 SaO2% (BldA) [Mass fraction] 97 % Dr. Carmen Mcleod Work Phone: [facility] 07-30-2023 10:22-0500 Systolic blood pressure 116 mm[Hg] Dr. Carmen Mcleod Work Phone: [facility] 06-12-2023 13:12-0500 Body height 193.[address] Carmen Mcleod Work Phone: [facility] 06-12-2023 13:12-0500 Body mass index (BMI) [Ratio] 29.2 kg/m2 Dr. Carmen Mcleod Work Phone: [facility] 06-12-2023 13:12-0500 Body weight 108.[address] Carmen Mcleod Work Phone: [facility] 06-12-2023 13:12-0500 Diastolic blood pressure 82 mm[Hg] Dr. Carmen Mcleod Work Phone: [facility] 06-12-2023 13:12-0500 Heart rate 67 /min Dr. Carmen Mcleod Work Phone: [facility] 06-12-2023 13:12-0500 Respiratory rate 18 /min Dr. Carmen Mcleod Work Phone: [facility] 06-12-2023 13:12-0500 SaO2% (BldA) [Mass fraction] 93 % Dr. Carmen Mcleod Work Phone: [facility] 06-12-2023 13:12-0500 Systolic blood pressure 119 mm[Hg] Dr. Carmen Mcleod Work Phone: [facility] 07-22-2022 21:43-0500 Body height 193.[address] Carmen Mcleod Work Phone: [facility] Work Phone: 07-22-2022 21:43-0500 Body mass index (BMI) [Ratio] 28 kg/m2 Dr. Carmen Mcleod Work Phone: [facility] Work Phone: 07-22-2022 21:43-0500 Body temperature 97.1 [degF] Dr. Carmen Mcleod Work Phone: [facility] Work Phone: 07-22-2022 21:43-0500 Body weight 104.[address] Carmen Mcleod Work Phone: [facility] Work Phone: 07-22-2022 21:43-0500 Diastolic blood pressure 104 mm[Hg] Dr. Carmen Mcleod Work Phone: [facility] Work Phone: 07-22-2022 21:43-0500 Heart rate 63 /min Dr. Carmen Mcleod Work Phone: [facility] Work Phone: 01-13-2023 21:43-0500 Respiratory rate 16 /min Dr. Carmen cMleod Work Phone: [facility] Work Phone: 07-22-2022 21:43-0500 SaO2% (BldA) [Mass fraction] 96 % Dr. Carmen Mcleod Work Phone: [facility] Work Phone: 07-22-2022 21:43-0500 Systolic blood pressure 164 mm[Hg] Dr. Carmen Mcleod Work Phone: [facility] Work Phone: 05-09-2022 11:00-0400 Body temperature 97.4 [degF] Dr. Carmen Mcleod Work Phone: [facility] Work Phone: 05-09-2022 11:00-0400 Diastolic blood pressure 82 mm[Hg] Dr. Carmen Mcleod Work Phone: [facility] Work Phone: 05-09-2022 11:00-0400 Heart rate 66 /min Dr. Carmen Mcleod Work Phone: [facility] Work Phone: 05-09-2022 11:00-0400 Respiratory rate 18 /min Dr. Carmen Mcleod Work Phone: [facility] Work Phone: 05-09-2022 11:00-0400 SaO2% (BldA) [Mass fraction] 97 % Dr. Carmen Mcleod Work Phone: [facility] Work Phone: 05-09-2022 11:00-0400 Systolic blood pressure 158 mm[Hg] Dr. Carmen Mcleod Work Phone: [facility] Work Phone: 04-12-2022 13:59-0400 Body height 193.[address] Carmen Mcleod Work Phone: [facility] Work Phone: 04-12-2022 13:59-0400 Body mass index (BMI) [Ratio] 29 kg/m2 Dr. Carmen Mcleod Work Phone: [facility] Work Phone: 04-12-2022 13:59-0400 Body weight 107.[address] Carmen Mcleod Work Phone: [facility] Work Phone: 04-12-2022 13:59-0400 Diastolic blood pressure 74 mm[Hg] Dr. Carmen Mcleod Work Phone: [facility] Work Phone: 04-12-2022 13:59-0400 Heart rate 64 /min Dr. Carmen Mcleod Work Phone: [facility] Work Phone: 04-12-2022 13:59-0400 Respiratory rate 16 /min Dr. Carmen Mcleod Work Phone: [facility] Work Phone: 04-12-2022 13:59-0400 Systolic blood pressure 136 mm[Hg] Dr. Carmen Mcleod Work Phone: [facility] Work Phone: 10-07-2021 14:07-0400 Body height 193.[address] Carmen Mcleod Work Phone: [facility] Work Phone: 10-07-2021 14:07-0400 Body mass index (BMI) [Ratio] 28.5 kg/m2 Dr. Carmen Mcleod Work Phone: [facility] Work Phone: 10-07-2021 14:07-0400 Body weight 106.[address] Carmen Mcleod Work Phone: [facility] Work Phone: 10-07-2021 14:07-0400 Diastolic blood pressure 80 mm[Hg] Dr. Carmen Mcleod Work Phone: [facility] Work Phone: 10-07-2021 14:07-0400 Heart rate 92 /min Dr. Carmen Mcleod Work Phone: [facility] Work Phone: 10-07-2021 14:07-0400 Respiratory rate 18 /min Dr. Carmen Mcleod Work Phone: [facility] Work Phone: 10-07-2021 14:07-0400 SaO2% (BldA) [Mass fraction] 94 % Dr. Carmen Mcleod Work Phone: [facility] Work Phone: 10-07-2021 14:07-0400 Systolic blood pressure 140 mm[Hg] Dr. Carmen Mcleod Work Phone: [facility] Work Phone: 10-07-2021 14:07-0400 Body height 193.[address] Jarad Mcwilliams Work Phone: [facility] Work Phone: 10-07-2021 14:07-0400 Body mass index (BMI) [Ratio] 28.5 kg/m2 Dr. Jarad Mcwilliams Work Phone: [facility] Work Phone: 10-07-2021 14:07-0400 Body weight 106.[address] Jarad Mcwilliams Work Phone: [facility] Work Phone: 10-07-2021 14:07-0400 Diastolic blood pressure 80 mm[Hg] Dr. Jarad Mcwilliams Work Phone: [facility] Work Phone: 10-07-2021 14:07-0400 Heart rate 92 /min Dr. Jarad Mcwilliams Work Phone: [facility] Work Phone: 10-07-2021 14:07-0400 Respiratory rate 18 /min Dr. Jarad Mcwilliams Work Phone: [facility] Work Phone: 10-07-2021 14:07-0400 SaO2% (BldA) [Mass fraction] 94 % Dr. Jarad Mcwilliams Work Phone: [facility] Work Phone: 10-07-2021 14:07-0400 Systolic blood pressure 140 mm[Hg] Dr. Jarad Mcwilliams Work Phone: [facility] Work Phone: 07-27-2021 12:09-0500 SaO2% (BldA) [Mass fraction] 97 % Dr. Jarad Mcwilliams Work Phone: [facility] Work Phone: 07-27-2021 12:00-0500 Heart rate 81 /min Dr. Jarad Mcwilliams Work Phone: [facility] Work Phone: 07-27-2021 11:48-0500 Body temperature 97.5 [degF] Dr. Jarad Mcwilliams Work Phone: [facility] Work Phone: 07-27-2021 11:48-0500 Diastolic blood pressure 76 mm[Hg] Dr. Jarad Mcwilliams Work Phone: [facility] Work Phone: 07-27-2021 11:48-0500 Respiratory rate 12 /min Dr. Jarad Mcwilliams Work Phone: [facility] Work Phone: 07-27-2021 11:48-0500 Systolic blood pressure 105 mm[Hg] Dr. Jarad Mcwilliams Work Phone: [facility] Work Phone: 07-26-2021 13:09-0500 Body mass index (BMI) [Ratio] 28.8 kg/m2 Dr. Jarad Mcwilliams Work Phone: [facility] Work Phone: 07-26-2021 13:09-0500 Body weight 107.[address] Jarad Mcwilliams Work Phone: [facility] Work Phone: 11-09-2020 11:34-0400 Body mass index (BMI) [Ratio] 28 kg/m2 Dr. Jarad Mcwilliams Work Phone: [facility] Work Phone: Encounters Encounter Date Encounter Type Care Provider Facility Start: 12-17-2024 End: 12-17-2024 Emergency department patient visit Dr. Carmen Mcleod MD Work Phone: -Emergency Department Work Phone: Start: 11-06-2024 End: 11-06-2024 ambulatory Fish Torres Facility:[facility] Start: 11-06-2024 End: 11-06-[address] Fish Torres MD -[facility] Work Phone: Start: 09-02-2024 End: 09-02-2024 Patient encounter procedure Abraham Whitlock [place] -[facility] Work Phone: Start: 09-02-2024 End: 09-02-2024 ambulatory Carmen Miedel Facility:[facility] Start: 08-13-2024 End: 08-13[facility] [address] [facility] Start: 08-07-2024 End: 08-07-2024 ambulatory Fish Melissa Facility:[facility] Start: 07-24-2024 ambulatory Carmen Mied Facility: [facility] Start: 05-08-2024 End: 05-08-2024 ambulatory [facility] Facility:[facility] Start: 02-07-2024 End: 02-07-2024 ambulatory Carmen Mcleod Facility:[facility] Start: 01-15-2024 End: 01-15-2024 ambulatory Carmen Mcleod Facility:[facility] Start: 07-30-2023 End: 07-30-2023 Emergency department patient visit Dr. Carmen Mcleod Work Phone: [facility]-Emergency Department Work Phone: Start: 06-30-2023 Non-patient / Non-visit Dr. Santiago Mcleod Work Phone: [facility] Work Phone: Start: 06-28-[address] Carmen Mcleod Work Phone: [facility] Work Phone: Start: 06-27-2023 Non-patient / Non-visit Dr. Santiago Mcleod Work Phone: [facility] Start: 06-27-2023 End: 06-27-[address] Carmen Mcleod Work Phone: [facility] Work Phone: Start: 06-27-2023 End: 06-27-[address] Carmen Mcleod Work Phone: [facility]-Pulmonary Services/Neurology Work Phone: Start: 06-15-2023 End: 06-15-[address] Carmen Mcleod Work Phone: [facility] Start: 06-12-2023 End: 06-12-[address] Carmen Mcleod Work Phone: [facility] Work Phone: Start: 06-12-2023 End: 06-12-[address] Carmen Mcleod Work Phone: [facility] Work Phone: Start: 06-12-2023 End: 06-12-[address] Carmen Mcleod Work Phone: [facility] Start: 05-22-2023 End: 05-22-[address] Carmen Mcleod Work Phone: [facility] Work Phone: Start: 05-22-2023 End: 05-22-[address] Carmen Mcleod Work Phone: [facility] Work Phone: Start: 05-10-2023 End: 05-10-[address] Carmen Mcleod Work Phone: [facility] Work Phone: Start: 04-28-2023 End: 04-28-[address] Carmen Mcleod Work Phone: [facility] Start: 07-22-2022 End: 07-22-2022 Emergency department patient visit Dr. Carmen Mcleod Work Phone: [facility]-Emergency Department Start: 07-13-2022 End: 07-13-[address] Carmen Mcleod Work Phone: [facility] Start: 05-09-2022 End: 05-09-[address] Carmen Mcleod Work Phone: [facility] Start: 04-12-2022 End: 04-12-[address] Carmen Mcleod Work Phone: [facility] Work Phone: Start: 04-12-2022 End: 04-12-[address] Carmen Mcleod Work Phone: [facility] Start: 04-12-2022 End: 04-12-[address] Carmen Mcleod Work Phone: [facility] Start: 04-05-2022 End: 04-05-[address] Carmen Mcleod Work Phone: [facility] Work Phone: Start: 04-05-2022 End: 04-05-[address] Carmen Mcleod Work Phone: [facility] Start: 12-29-2021 End: 12-29-[address] Carmen Mcleod Work Phone: [facility] Start: 12-09-2021 End: 01-06-[address] Carmen Mcleod Work Phone: [facility]-Cardiac Rehab Start: 11-23-2021 End: 12-07-[address] Carmen Mcleod Work Phone: [facility] Start: 10-26-2021 End: 11-06-[address] Jarad Mcwilliams Work Phone: [facility] Start: 10-07-2021 End: 10-07-[address] Jarad Mcwilliams Work Phone: [facility] Start: 09-22-2021 End: 09-22-[address] Jarad Mcwilliams Work Phone: [facility] Start: 08-02-2021 End: 08-02-[address] Jarad Mcwilliams Work Phone: [facility] Start: 08-02-2021 End: 08-02-[address] Jarad Mcwilliams Work Phone: [facility] Start: 07-27-2021 Non-patient / Non-visit Dr. Jeff Mcwilliams Work Phone: [facility] Start: 07-27-2021 Non-patient / Non-visit Dr. Jeff Mcwilliams Work Phone: [facility] Start: 07-26-2021 End: 07-26-[address] Jarad Mcwilliams Work Phone: [facility] Start: 07-26-2021 Non-patient / Non-visit Dr. Jeff Mcwilliams Work Phone: [facility] Start: 07-26-2021 Non-patient / Non-visit Dr. Jeff Mcwilliams Work Phone: [facility] Start: 07-26-2021 End: 07-27-2021 Evaluation and management of inpatient Dr. Jarad Mcwilliams Work Phone: [facility] Start: 07-25-2021 End: 07-26-2021 Emergency department patient visit [facility] Procedures Date Procedure Procedure Detail Performing Clinician Start: 12-17-[address] Carmen Mcleod MD Work Phone: Start: 12-17-2024 Plain chest X-ray Dr. Valerie Mcleod MD Work Phone: Start: 07-30-2023 Radiologic examinati on of knee Dr. Carmen Mcleod Work Phone: Start: 07-30-2023 X-ray of chest posteroanterior view Dr. Carmen Mcleod Work Phone: Start: 06-15-2023 Plain chest X-ray Dr. Valerie Mcleod Work Phone: Start: 05-22-[address] Carmen Mcleod Work Phone: Start: 04-28-2023 X-ray of cervical spine Dr. Carmen Mcleod Work Phone: Start: 04-12-2022 Plain chest X-ray Dr. Valerie Mcleod Work Phone: Start: 04-04-2019 History of coronary artery bypass grafting H/O coronary artery bypass surgery Dr. Carmen Mcleod Work Phone: Comment on above: CABG x 3: SVG-LAD, S VG-OM1, SVG-RPDA 04/04/19 Start: 04-03-2019 Electrocardiogram Start: 10-29-2017 History of placement of stent for coronary artery disease History of coronary artery stent placement Dr. Jarad Mcwilliams Work Phone: Comment on above: VII-MQV-Gslsoy RCA u sing 2.5 x 12 mm Resolute Integrity and HAYDEN-Mid RCA using 3.0 x 15 mm Resolute Integrity 10/29/17 Plan of Treatment Date Care Activity Detail Author Start: 12-17-2024 [facility] Start: 12-17-2024 End: 12-17-2024 [facility] Start: 07-30-2023 [facility] Start: 06-15-2023 Plain chest X-ray Chest PA and Later al [facility] Start: 06-15-2023 XR Chest PA and Lateral [facility] Measurement of respiratory function [facility] Patient Education [facility] Work Phone: Patient referral [facility] Work Phone: Immunizations Immunization Date Immunization Notes Care Provider Fa cility 04-09-[address] Jarad Mcwilliams Work Phone: [facility] Payers Date Payer Category Payer Department of [facility] e ([employer] [employer] and others) [id number] 2024 Self-pay [id number] 2023 Department of [facility] ( and others) [id number] 2023 Medicare [id number] 1950 Unknown [id number] Unknown [id number] Unknown [id number] Unknown [id number] Unknown [id number] Unknown [id number] Unknown [id number] Unknown [id number] Unknown [id number] Unknown [id number] Social History Date Type Detail Facility Start: 10-07-2021 End: 07-30-2023 Tobacco smoking status NHIS Unknown if ever smoked [facility] Start: 03-23-2019 Occasional [facility] Start: 03-23-2019 None [facility] Start: 03-23-2019 Spouse/ Signif icant Other [facility] Start: 03-23-2019 Cigarettes [facility] Start: 1950 Sex Assigned At Male [facility] Start: 12-17-2024 Tobacco smoking status NHIS Ex-smoker (finding) [facility] Functional Status Date Assessment Result Facility 07-27-2021 Functional status Up ad jojo [facility] Work Phone: Mental Status Date Assessment Result Facility 12-17-2024 Cognitive function Level Of Cons ciousness Awake;Alert;Appropriate;Follow s Commands [facility] Work Phone: 07-26-2021 Cognitive function Voice/Name [facility] Work Phone: Clinical Notes 04-04-2019 to 12-17-2024 Note Date & Type Note Facility 12-17-2024 Discharge summary [facility] 12-17-2024 Radiology Diagnostic study note [facility] Imaging Services [address] [place], [place] [address] Chest 1 View (Portable) MR#: [id number] Acct: [id number] Name: RIGO DIAZ III Rep #: [id number] : 1950 M 74 From: Nithya Sauceda MD PCP: Dr. Carmen Mcleod MD Status: REG ER Study:Chest 1 View (Portable) Date of Exam: 12/17/24 Exam# [id number] Ordering Dr: Aimee Ac MD PROCEDURE: CHEST 1 VIEW (PORTABLE) 12/17/2024 REASON FOR EXAM: CHEST PAIN TECHNIQUE: Frontal view of the chest. COMPARISON: 07/30/2023 FINDINGS: No focal consolidations. Mild pulmonary vascular congestion. Cardiac silhouette is unchanged. Left chest pacer. Median sternotomy wires. Atherosclerotic aortic arch. No pleural effusion or pneumothorax. No acute fractures. RAD/Chest 1 View (Portable) IMPRESSION: No focal consolidations. Mild pulmonary vascular congestion. Reading Location: [id number] CC: Dr. Carmen Mcleod MD; Dr. Cristino Ac MD ~ Technical Documentation Specialist: Signed [facility] 12-17-2024 Discharge summary Note Date/Time December 17, 2024 10:52pm [facility] [address] [address] Emergency Department Summary 12/17/24 MR#: [id number] Acct: [id number] Name: RIGO DIAZ III Rep # :[id number] : 1950 74 From: Cristino Ac MD PCP: Dr. Carmen Mcleod MD Status:REG ER Location: ED HPI History of Present Illness Chief Complaint: Chest Pain Detail of Chief Complaint: Sharp left-sided chest pain near the anterior axillary line Informant: patient Onset/Context/Timing Onset: Today (Started several hours prior to presentation while he was sitting. This occurred after eating.) and Yesterday (Yesterday developed left upper extremity pain and has been constant since yesterday.) Activity at onset: sudden Timing: Continuous Quality: Positive for Aching (Left upper extremity) and Sharp (Left chest pain) Location: Left Chest Current Severity: Mild Maximum Severity: Moderate Worsened By: Nothing Relieved By: Nothing Associated Symptoms: Negative for Nausea, Vomiting, Diaphoresis, Dyspnea, Cough,Fever, Lightheadedness, Acid Reflux or Palpitations Narrative Narrative: Patient is a 74-year-old male. He has history of hypertension, hypercholesterolemia, non-ST elevation [place] March 2019 and status post two-vessel coronary bypass surgery. He states he has not had pain since his surgery. He presents with left-sided chest pain described as sharp. Been constant with past couple of hours. This occurred while sitting after he had a meal. He denies any associated symptoms. He states he had pain that started inthe left scapular area and left upper extremity started yesterday has been constant. Nothing makes the pain better or worse. Nothing makes the chest painbetter or worse. He denies black or maroon-colored stool. He denies intolerance to food. He denies history of GERD. Review of prior records however indicates he does have GERD. Patient does have problems with hearing and may have misinterpreted questions because multiple questions had to be repeated. Prior Similar Symptoms: No Recent Illness/Hospitalization: No CVD Risk Factors: Positive for Hypertension and Hypercholesterolemia; Negative for Family History 1' </=55 or Smoking (Former) PE Risk Factors: Negative for Recent Travel/Surgery, Recent Immobilization, Prior DVT or PE, Cancer or OCP + Smoking + >/=35 TAD Risk Factors: Positive for Hypertension; Negative for Marfan's Syndrome or Family History PFSH [facility] Medical History Tinea corporis Tinea cruris Acute bronchitis, unspecified Acute sinusitis, unspecified Paroxysmal atrial fibrillation with RVR Cellulitis of right knee History of non-ST elevation myocardial infarction (NSTEMI) (03/23/19) Nonsustained supraventricular tachycardia Nonsustained ventricular tachycardia Multiple lung nodules Sustained ventricular tachycardia (03/24/19) Essential (primary) hypertension 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) Nicotine dependence 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 HLD (hyperlipidemia) GERD (gastroesophageal reflux disease) [place] (hard of hearing) Stenosis of left subclavian artery Home Medications ?Medication ?Instructions ?Recorded ?Last Taken ?Type brimonidine 0.1 % eye drops 1 drp LEFT EYE QHS prevent glaucoma 03/23/19 12/17/24 History latanoprost 0.005 % eye drops 1 drp LEFT EYE QHS preve nt glaucoma 03/23/19 12/16/24 History acetaminophen 650 mg 650 mg PO Q8H PRN PRN Pain O r Fever 04/27/19 12/14/24 History tablet,extended release (Arthritis Pain Relief (acetaminophen) ER) multivitamin 1 tab PO DAILY vitamin 03/1312/17/24 History ascorbic acid (vitamin C) 500 mg 1,000 mg PO BID vitam in 01/31/21 12/17/24 History capsule Handicap Placard ##1 11/03/22 Unknown Rx amiodarone 100 mg tablet 100 mg PO DAILY 90 days #90 tabs 01/15/24 12/17/24 Rx apixaban 5 mg tablet (Eliquis) 5 mg PO BID for blood c lot #180 01/29/24 12/17/24 Rx TABLETS diltiazem HCl 120 mg capsule,24 120 mg PO BID #180 cap s 03/28/24 12/17/24 Rx hr,extended release metoprolol tartrate 100 mg tablet See Rx Instructions .Route 05/21/24 12/17/24 Rx .COMPLEX #180 TABLETS dulaglutide 0.75 mg/0.5 mL 0.75 mg subcut QWEEK 12/10/24 History subcutaneous pen injector (Trulicity) nystatin 100,000 unit/gram topical 1 applic topical BI D #60 grams 09/02/24 Unknown Rx powder atorvastatin 40 mg tablet 40 mg PO QHS for cholesterol 12/17/24 12/16/24 History clotrimazole-betamethasone 1 1 applic topical Q12H 05/0312/17/24 History %-0.05 % topical cream empagliflozin 25 mg tablet 25 mg PO DAILY 12/17/2405/03 History (Jardiance) Allergy/AdvReac Type Severity Reaction Status Date / Time No Known Allergies Allergy Verified 12/17/24 17:47 Family History Father Negative FH of ASCVD Hypertension Father COPD (chronic obstructive pulmonary disease) Mother Hypertension Surgical History Presence of implantable cardioverter-defibrillator (ICD) History of electrophysiologic study (04/2019) H/O coronary artery bypass surgery (04/04/19) History of implantable cardiac defibrillator (ICD) (04/12/19) History of left heart catheterization (04/04/19) History of coronary artery stent placement (10/29/17) Hx of elbow surgery History of herniorrhaphy Social History household members: none Smoking Status: Former smoker quit date: 03/23/19 pack-years: 75 alcohol intake: former substance use type: does not use caffeine: Yes Type: coffee Number of servings: 2 and tea Number of servings: 1 ROS ROS ED Constitutional Constitutional ED: Denies chills, fever(s), subjective, sweats or weight loss Eyes Eyes: Reports none ENT ENT ED: Denies ear pain, rhinorrhea or sore throat Cardiovascular Cardiovascular: Reports as per HPI; Denies orthopnea or paroxysmal nocturnal dyspnea Respiratory/Chest Respiratory/Chest: Denies cough, dyspnea, dyspnea on exertion, orthopnea, paroxysmal nocturnal dyspnea or sputum Gastrointestinal Gastrointestinal: Denies abdominal pain, constipation, diarrhea, melena, nausea or vomiting Musculoskeletal Musculoskeletal: Denies arthralgias, back pain, myalgias or neck pain Integumentary Denies Abrasions or rash Neurologic Neurologic: Denies headache(s), paresthesias or weakness Endocrine Endocrinology: Denies cold intolerance or heat intolerance EXAM Physical Exam Const Vital Signs: 12/17/24 17:47 12/17/24 18:07 12/17/24 18:09 Temperature 98.2 F Temperature Source Oral Pulse Rate 80 Respiratory Rate 18 Respiratory Effort Normal Non-Labored Blood Pressure 104/79 Blood Pressure Mean 87 Pulse Ox 94 97 Oxygen Delivery Method Room Air Room Air 12/17/24 19:13 12/17/24 20:06 12/17/24 22:00 Temperature Temperature Source Pulse Rate 78 79 78 Respiratory Rate 18 15 Respiratory Effort Blood Pressure 131/73 H 147/75 H 133/86 H Blood Pressure Mean 92 99 101 Pulse Ox 93 98 Oxygen Delivery Method Room Air Positive well nourished and well developed Constitutional Narrative: BMI is 28.2 General Appearance ED: well developed; Negative for pallor HEENT Reports moist mucous membranes normocephalic and atraumatic Eyes PERRL and EOMs intact bilaterally General Eye ED: Negative for pale conjunctiva or scleral icterus Neck no lymphadenopathy, supple and no JVD Chest Wall inspection of chest normal and palpation of chest normal Resp normal respiratory effort and clear to auscultation bilaterally Cardio regular rate, regular rhythm, S1 normal heart sound, S2 normal heart sound and no murmurs GI normal to inspection, nondistended, normoactive bowel sounds, soft to palpation,non-tender, non-distended and no masses; Negative for hepatosplenomegaly GI Narrative: There is no pulsatile mass or abdominal bruit. Back/Spine no CVA tenderness Extremity General Extremety ED: Yes edema; Negative for pulses abnormal or tenderness General Extremity: edema; Negative for pulses abnormal Neuro oriented x3 and CN's II-XII intact bilaterally Sensorium / Orientation: awake and alert Psych mental status grossly normal Skin no rashes or lesions noted and no wounds General Skin Exam: Negative for jaundice or pallor MDM MDM MDM Narrative Medical decision making narrative: Differential diagnosis cardiac versus noncardiac. Noncardiac would be pain of unknown etiology, history is not consistent with pulmonary embolus. History is not consistent with aortic dissection. There is no pleuritic component. History & Record Review Additional record(s) reviewed:: Prior outpatient record, Prior ED visit and Prior labs Lab Data Attestation: I reviewed the patient's lab results. Lab results narrative: H&H 18.8 and 53.7. MCV is elevated at 95.9. Hemoglobin was elevated in August as well. First troponin was 28. Second troponin was 30 with a delta of 2. 4-hour troponin was 23 with a delta of -7. Patient's history is not consistent with cardiac. At this point we will discharge to home. Labs: Laboratory Results - last 24 hr 12/17/24 12/17/24 12/17/24 18:10 19:45 21:40 WBC 10.1 RBC 5.60 Hgb 18.8 H* Hct 53.7 MCV 95.9 H MCH 33.6 H MCHC 35.0 RDW Std Deviation 45.0 H RDW Coeff of Priscila 12.6 Plt Count 224 MPV 9.7 Immature Gran % (Auto) 0.400 Neut % (Auto) 75.5 H Lymph % (Auto) 12.3 L Dougherty % (Auto) 8.2 Eos % (Auto) 2.8 Baso % (Auto) 0.8 Absolute Neuts (auto) 7.6 Absolute Lymphs (auto) 1.24 Nucleated RBC % 0 PT 14.8 INR 1.1 Sodium 138 Potassium 4.0 Chloride 101 Carbon Dioxide 24.8 Anion Gap 13 BUN 16 Creatinine 1.18 Estim Creat Clear Calc 70.91 Est GFR (MDRD) Non-Af 64 BUN/Creatinine Ratio 13.5 Glucose 119 H Calcium 10.0 Troponin T High Sens 28 H Troponin T Hi Sens 2 Hr 30 H Troponin T Hi Sens 4Hr 23 H Radiography Chest X-Ray - ED: 1 View, Read by ED Physician (180, patient has a pacemaker noted. Single-chamber.), Heart, Lungs, Mediastinum, Bony Structures, No Acute Disease and Chronic Changes Diagnostic Testing: Clinical Impression(s) from Imaging Studies Chest X-Ray 12/17/24 17:55 IMPRESSION: No focal consolidations. Mild pulmonary vascular congestion. Reading Location: [facility] Radiology impression was reviewed and read. I do not believe patient has CHF. Differential Diagnosis Chest pain/SOB: pulmonary embolism Reason(s) PE less likely: Positive for Well's<3, not tachycardic, not hypoxic and patient taking oral anticoagulants, ACS ACS: Positive for no evidence of ACS based on cardiac biomarkers, EKG without ischemia and history not suggestive of ischemia pain, pneumothorax Reason(s) pneumothorax less likely: Positive for bilateral breath sounds and [employer] withhout PTX, pneumonia Reason(s) pneumonia less likely: Positive for no infiltrate on CXR, no elevation in WBC count, no noted fever and symptoms not consistent with acute infection, aortic dissection Reason(s) Aortic dissection less likely:: Positive for normal vascular exam, no history of HTN, normal neurological exam, no significant risk factors for dissection, no widened mediastinum on CXR, pain not sudden onset, no ripping/tearing pain and no pain to back, CHF Reason(s) CHFless likely: Positive for no significant peripheral edema, no orthopnea, no evidence of fluid overload on CXR and BtNP not significantly elevated over normal/baseline and COPD Reason(s) COPD less likely: Positive for no significant wheezing on exam, no tachypnea, no conversational dyspnea, normal air movement noted on auscultation on lungs and other (Patient not have a history of COPD) Treatment and Re-Evaluation :: Patient was informed of his results. Patient was informed the cause of his painis uncertain. Discharge Plan Triage Chief Complaint: Chest Pain ED Provider: Cristino Ac Dx/Rx/DC Orders Clinical Impression: Left-sided chest pain, HLD (hyperlipidemia), USP current use of amiodarone, Arm pain, left, History of coronary artery disease, Hypertension Instructions: ED Chest Pain, Noncardiac, ED Chest Pain, Uncertain Cause Prescriptions: No Action acetaminophen [Arthritis Pain Relief (acetam)] 650 mg tablet extended release 650 mg PO Q8H PRN PRN (Reason: Pain Or Fever) multivitamin Tablet 1 tab PO DAILY (DME) Handicap Placard See Rx Instructions .Route .MEDSUPPLY Qty: 1 0RF Rx Instructions: Lifetime handicap placard. Expires 11/04/2027 amiodarone 100 mg tablet 100 mg PO DAILY 90 Days Qty: 90 3RF Trulicity 0.75 mg/0.5 mL pen injector 0.75 mg subcut QWEEK nystatin 100,000 unit/gram powder 1 applic topical BID Qty: 60 1RF latanoprost 0.005 % drops 1 drp LEFT EYE QHS brimonidine 0.1 % drops 1 drp LEFT EYE QHS ascorbic acid (vitamin C) 500 mg Capsule 1,000 mg PO BID clotrimazole-betamethasone 1-0.05 % cream 1 applic topical Q12H Jardiance 25 mg tablet 25 mg PO DAILY atorvastatin 40 mg tablet 40 mg PO QHS Rx Instructions: PT STATES TAKES QOD Eliquis 5 mg tablet 5 mg PO BID Qty: 180 3RF diltiazem HCl 120 mg capsule,extended release 24 hr 120 mg PO BID Qty: 180 3RF metoprolol tartrate 100 mg tablet See Rx Instructions .ROUTE .COMPLEX Qty: 180 3RF Dose Instruction: TAKE 1 TABLET TWICE A DAY Rx Instructions: TAKE 1 TABLET TWICE A DAY Primary Care Provider: Carmen Mcleod Referrals: Carmen Mcleod MD [Primary Care Provider] - As Needed Print Language: Citizen Of [place] Disposition Disposition: [facility] What to do if you have Problems For any increased pain, shortness of breath, bleeding, nausea or vomiting, chestpain, or any unexpected problems, contact your Primary Care Provider. Call [facility] ([phone]) or report to the closest Emergency Room. Call 911 if necessary. 12/17/242250 <Electronically signed by Cristino Ac MD> Cosigner Signature (if applicable): CC: Dr. Carmen Mcleod MD ~ Signed ADDENDUM by Dr. Cristino Ac MD on 12/17/24 at 2252 Sinus rhythm rate of 80. IL interval is 240 ms. QRS duration is prolonged 118 ms and represents an nonspecific intraventricular conduction delay. QT is prolonged. Delta is normal. There is artifact. There is no acute ischemic changes noted. EKG was performed at 1809 12/17/242251<Electronically signed by Cristino Ac MD> Cosigner Signature (if applicable): cc: Dr. Carmen Mcleod MD ~* Signed [facility] Work Phone: 1(895) 630-947902-24-2025 Evaluation note* Diagnosis Onset Date Resolution Status Admit Date Tinea corporis acute August 112024 12:46pm Tinea cruris acute August 12:46pm [facility] Work Phone: 1(138) 788-422312-19-2023 Procedure [facility] 07-22-2022 Hospital Discharge instructions Additional Instructions When you get home remove the gauze and bite down on a tea bag for 20 to 30 minutes with the Surgicel foam in place. After this timeframe you can remove the teabag and if the Surgifoam falls off you can place a new piece. You can leave this in place until the morning and then you can gargle with salt water to remove the remaining foam. 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 Presence of implantable cardioverter-defibrillator (ICD) acute HLD (hyperlipidemia) chronic Paroxysmal atrial fibrillation with RVR chronic [facility] Work Phone: Evaluation note* Diagnosis Onset Date Resolution Status Paroxysmal atrial fibrillation with RVR chronic Inappropriate shocks from IC D (implantable cardioverter-defibrillator) resolved Nonsustained supraventricular tachycardia chronic Nonsustained ventricular tachycardia chronic Paroxysmal atrial fibrillation with RVR chronic Sustained ventricular tachycardia March 24, 2019 resolved 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 Paroxysmal atrial fibrillation with RVR chronic History of coronary artery stent placement October 29, 2017 resolved Sustained ventricular tachycardia March 24, 2019 resolved Atrial fibrillation, new onset January 31, 2021 acute Presence of implantable cardioverter-defibrillator (ICD) acute Nonsustained supraventricular tachycardia chronic Nonsustained ventricular tachycardia chronic Sustained ventricular tachycardia March 24, 2019 resolved Presence of implantable cardioverter-defibrillator (ICD) acute Nonsustained supraventricular tachycardia chronic Nonsustained ventricular tachycardia chronic Paroxysmal atrial fibrillation with RVR chronic 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 Paroxysmal atrial fibrillation with RVR chronic History of coronary artery stent placement October 29, 2017 resolved Sustained ventricular tachycardia March 24, 2019 resolved [facility] Work Phone: Evaluation note* Diagnosis Onset Date Resolution Status Presence of implantable cardioverter-defibrillator (ICD) acute Nonsustained supraventricular tachycardia chronic Nonsustained ventricular tachycardia chronic Paroxysmal atrial fibrillation with RVR chronic 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 Paroxysmal atrial fibrillation with RVR chronic History of coronary artery stent placement October 29, 2017 resolved Sustained ventricular tachycardia March 24, 2019 resolved [facility] Work Phone: Evaluation note* Diagnosis Onset Date Resolution Status Presence of implantable cardioverter-defibrillator (ICD) acute Nonsustained supraventricular tachycardia chronic Nonsustained ventricular tachycardia chronic Paroxysmal atrial fibrillation with RVR chronic 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 Paroxysmal atrial fibrillation with RVR chronic History of coronary artery stent placement October 29, 2017 resolved Sustained ventricular tachycardia March 24, 2019 resolved Presence of implantable cardioverter-defibrillator (ICD) acute Nonsustained supraventricular tachycardia chronic Nonsustained ventricular tachycardia chronic Paroxysmal atrial fibrillation with RVR chronic [facility] Work Phone: Evaluation note* Diagnosis Onset Date Resolution Status Presence of implantable card ioverter-defibrillator (ICD) acute Nonsustained supraventricular tachycardia chronic Nonsustained ventricular tachycardia chronic Paroxysmal atrial fibrillation with RVR chronic [facility] Work Phone: Evaluation note* Diagnosis Onset Date Resolution Status Presence of implantable cardioverter-defibrillator (ICD) acute Nonsustained supraventricular tachycardia chronic Nonsustained ventricular tachycardia chronic Paroxysmal atrial fibrillation with RVR chronic Presence of implantable cardioverter-defibrillator (ICD) acute Nonsustained supraventricular tachycardia chronic Nonsustained ventricular tachycardia chronic Paroxysmal atrial fibrillation with RVR chronic Sustained ventricular tachycardia March 24, 2019 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 Presence of implantable cardioverter-defibrillator (ICD) acute 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 Paroxysmal atrial fibrillation with RVR chronic History of coronary artery stent placement October 29, 2017 resolved Sustained ventricular tachycardia March 24, 2019 resolved [facility] Work Phone: Evaluation note* Diagnosis Onset Date Resolution Status Presence of implantable cardioverter-defibrillator (ICD) acute Nonsustained supraventricular tachycardia chronic Nonsustained ventricular tachycardia chronic Paroxysmal atrial fibrillation with RVR chronic Sustained ventricular tachycardia March 24, 2019 resolved USP current use of amiodarone acute Presence of implantable cardioverter-defibrillator (ICD) acute 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 Paroxysmal atrial fibrillation with RVR chronic History of coronary artery stent placement October 29, 2017 resolved Sustained ventricular tachycardia March 24, 2019 resolved Acute bronchitis, unspecified acute Acute sinusitis, unspecified acute Presence of implantable cardioverter-defibrillator (ICD) acute Paroxysmal atrial fibrillation with RVR chronic [facility] Work Phone: Evaluation noteNo assessment information available [facility] Work Phone: Hospital Discharge instructions Additional Instructions There is not appear to be any underlying rib fractures, knee fracture or displacement of the wires of your pacemaker. Continue take your medications as prescribed.[facility] Work Phone: Reason for referral (narrative)No reason for referral information availableWParkwood Hospital Work Phone: Summary Purpose Family History No Family History Records Found Relationship Condition Age at Onset Recorded Date/T kay father Unknown Hypertension Unknown father Chronic obstructive pulmonary disease Unk nown mother Hypertension Unknown Advance Directives No Advanced Directives Records Found Advance Directive Response Recorded Date/ Time Living Will No July 26 2:47pm Power of Carroter No July 26, 2021 2:47pm Advance Directive Response Recorded Date/ Time Living Will No July 22 23 9:54pm Power of Carroter No July 22, 2022 9:54pm Advance Directive Response Recorded Date/ Time Living Will No July 30 10:47am Power of Carroter No July 30, 2023 10:47am Advance Directive Response Recorded Date/ Time Do you have a Healthcare Power of Carroter? Yes December 17, 2024 6:09pm Hospital Course Note HNO ID: [id number] Author: Kaci Pa) MIGUELITO Reyes Service: Cardiac Surgery Author Type: Nurse Practitioner Type: Discharge Summary Filed: 04/13/2019 10:46 AM Note Text: Attestation signed by Colt Macias at 04/14/2019 1:00 PM Attending Note I have personally performed a face to face assessment of the patient and have reviewed the PA/DIRECTOR DIABETES note. My ellis findings include: Assessment/Plan are as above Other additions or changes: None Signature: Colt Macias MD Date: 04/14/2019 Time: 1:00 PM DISCHARGE SUMMARY PATIENT NAME: Rigo Diaz Code Status: Not on file Highest Readmission Risk Score: 18 The 30 day readmissions risk score is derived from an internally validated risk model which evaluates patient level characteristics, utilization history, medication orders and lab results up until the day of discharge. (more content not included)... Note HNO ID: [id number] Author: Gina Campbell CNP Service: Cardiovascular Surgery Author Type: Nurse Practitioner Type: Procedures Filed: 04/08/2019 11:12 AM Note Text: BEDSIDE PROCEDURE NOTE Epicardial pacing wire removal Date/Start Time: 04/08/2019 11:11 AM Performed by: Virgie Campbell CNP Authorized by: Virgie Campbell CNP Consent/Sorrento Protocol Sign In Communication: Completed Time Out [...] not included)... Procedure Findings Note HNO ID: [id number] Author: Gina Campbell CNP Service: Cardiovascular Surgery Author Type: Nurse Practitioner Type: Procedures Filed: 04/08/2019 11:12 AM Note Text: BEDSIDE PROCEDURE NOTE Epicardial pacing wire removal Date/Start Time: 04/08/2019 11:11 AM Performed by: Virgie Campbell CNP Authorized by: Virgie Campbell CNP Consent/Sorrento Protocol Sign In Communication: Completed Time Out [...] and right ve (more content not included)... Chief Complaint and Reason for Visit Chief Complaint COVID/AFIB RVR COVID/AFIB RVR COVID/AFIB RVR inpatient Latitude CONSULT COVID/AFIB RVR COVID/AFIB RVR PHONE VISIT 6 M FU ICD f/u/SHAMIKA @ 2 annual come-in/2:30 JHR 3 mos remote ICD f/u 2 MO F/U (2WKS POST REMOTE CK) 2021 PH III MAINTENANCE Reason for Visit Paroxysmal atrial fi brillation with RVR Inappropriate shocks from ICD (implantable cardioverter-defibrillator) Nonsustained supraventricular tachycardia Nonsustained ventricular tachycardia Paroxysmal atrial fibrillation with RVR Sustained ventricular tachycardia 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 Paroxysmal atrial fibrillation with RVR History of coronary artery stent placement Sustained ventricular tachycardia Atrial fibrillation, new onset Presence of implantable cardioverter-defibrillator (ICD) Nonsustained supraventricular tachycardia Nonsustained ventricular tachycardia Sustained ventricular tachycardia Presence of implantable cardioverter-defibrillator (ICD) Nonsustained supraventricular tachycardia Nonsustained ventricular tachycardia Paroxysmal atrial fibrillation with RVR 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 Paroxysmal atrial fibrillation with RVR History of coronary artery stent placement Sustained ventricular tachycardia Chief Complaint 3 mos remote ICD f/u 2 MO F/U (2WKS POST REMOTE CK) 2021 PH III MAINTENANCE 2021 PH III MAINTENANCE Reason for Visit Presence of implanta ble cardioverter-defibrillator (ICD) Nonsustained supraventricular tachycardia Nonsustained ventricular tachycardia Paroxysmal atrial fibrillation with RVR 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 Paroxysmal atrial fibrillation with RVR History of coronary artery stent placement Sustained ventricular tachycardia Chief Complaint 3 mos remote ICD f/u 2 MO F/U (2WKS POST REMOTE CK) 2021 PH III MAINTENANCE 2021 PH III MAINTENANCE 2021 PH III MAINTENANCE 3 mos remote ICD f/u Reason for Visit Presence of implanta ble cardioverter-defibrillator (ICD) Nonsustained supraventricular tachycardia Nonsustained ventricular tachycardia Paroxysmal atrial fibrillation with RVR 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 Paroxysmal atrial fibrillation with RVR History of coronary artery stent placement Sustained ventricular tachycardia Presence of implantable cardioverter-defibrillator (ICD) Nonsustained supraventricular tachycardia Nonsustained ventricular tachycardia Paroxysmal atrial fibrillation with RVR Chief Complaint 3 mos remote ICD f/u Reason for Visit Presence of implanta ble cardioverter-defibrillator (ICD) Nonsustained supraventricular tachycardia Nonsustained ventricular tachycardia Paroxysmal atrial fibrillation with RVR Chief Complaint 3 mos remote ICD f/u annul in-clinic. Sees JONATHAN@ 2pm 6 M FU ICD f/u @ 1:30 AMIODARONE Reason for Visit Presence of implanta ble cardioverter-defibrillator (ICD) Nonsustained supraventricular tachycardia Nonsustained ventricular tachycardia Paroxysmal atrial fibrillation with RVR Presence of implantable cardioverter-defibrillator (ICD) Nonsustained supraventricular tachycardia Nonsustained ventricular tachycardia Paroxysmal atrial fibrillation with RVR Sustained ventricular tachycardia USP current use of amiodarone Presence of implantable cardioverter-defibrillator (ICD) 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 Paroxysmal atrial fibrillation with RVR History of coronary artery stent placement Sustained ventricular tachycardia Chief Complaint annul in-clinic. 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 Presence of implantable cardioverter-defibrillator (ICD) 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 Paroxysmal atrial fibrillation with RVR History of coronary artery stent placement Sustained ventricular tachycardia Acute bronchitis, unspecified Acute sinusitis, unspecified Presence of implantable cardioverter-defibrillator (ICD) Paroxysmal atrial fibrillation with RVR Chief Complaint XRAY Personal history of nicotine dependence Chief Complaint XRAY Personal history of nicotine dependence 8 m fu xray Reason for Visit H/O coronary artery bypass surgery USP current use of amiodarone Presence of implantable cardioverter-defibrillator (ICD) HLD (hyperlipidemia) Paroxysmal atrial fibrillation with RVR Chief Complaint XRAY Personal history of nicotine dependence 8 m fu xray 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 DRUG THERAPY 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 DRUG THERAPY Pacer Check Remote Amb Documentation Reason for Visit H/O coronary artery bypass surgery USP current use of amiodarone Presence of implantable cardioverter-defibrillator (ICD) HLD (hyperlipidemia) Paroxysmal atrial fibrillation with RVR Chief Complaint XRAY Pacer Check Remote Personal history of nicotine dependence 8 m fu xray 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 DRUG THERAPY CORRECTION DRUG THERAPY Amb Documentation WOUND CHECK Reason for Visit H/O coronary artery bypass surgery USP current use of amiodarone Presence of implantable cardioverter-defibrillator (ICD) HLD (hyperlipidemia) Paroxysmal atrial fibrillation with RVR Chief Complaint Admit Date Rash September 02, 2024 12:46pm Pacer Check Remote November 06, 2024 3:2 0am CHEST PAIN December 17, 2024 5:46 pm Reason for Visit Admit Date Tinea corporis September 02, 2024 12:46pm Tinea cruris September 02, 2024 12:46pm Additional Source Comments (unrecognized sect ion and content) No Status Records FoundNo Status Records FoundNo Status Records FoundNo Status Records Found INFORMATION SOURCE (unrecogn ized section and content) DATE CREATED AUTHOR 07/15/2019 [facility] DATE CREATED AUTHOR AUTHOR'S ORGANIZ ATION 04/29/2020 [facility] DATE CREATED AUTHOR AUTHOR'S ORGANIZ ATION 02/09/2022 [facility] DATE CREATED AUTHOR AUTHOR'S ORGANIZ ATION [facility] Goals (unrecognized section and content) Goals may be documented in a n alternate sectionGoals may be documented in an alternate sectionGoals may be documented in an alternate sectionGoals may be documented in an alternate sectionGoals may be documented in an alternate sectionGoals may be documented in an alternate sectionGoals may be documented in an alternate sectionGoals may be documented in an alternate sectionGoals may be documented in an alternate sectionGoals may be documented in an alternate sectionGoals may be documented in an alternate section Care Teams (unrecognized sec tion and content) Team Status: Active Member Role Status Dates Dr. Jarad Mcwilliams MD Family Provider Active Dr. Carmen Mcleod MD Primary Care Provider Active Team Status: Inactive Member Role Status Dates Dr. Carmen Mcleod MD Primary Care Provider Active Dr. Fish Torres MD Attending Provider Active Team Status: Inactive Member Role Status Dates Dr. Carmen Mcleod MD Primary Care Prov ider, Attending Provider, Referring Provider Active Team Status: Inactive Member Role Status Dates Dr. Carmen Mcleod MD Primary Care Provider, Referrin g Provider Active Jonathan Bond VEGETABLE BUNCHER, VEGETABLE BUNCHER-C Attending Provider Active Team Status: Inactive Member Role Status Dates Dr. Carmen Mcleod MD Primary Care Provider, Attendin g Provider Active Team Status: Active Member Role Status Dates Dr. Carmen Mcleod MD Primary Care Provider Active Jonathan Bond VEGETABLE BUNCHER, VEGETABLE BUNCHER-C Referring Provider, Other Provi gee Active Dr. Jorge Stanford DO Attending Provider Active Team Status: Active Member Role Status Dates Dr. Carmen Mcleod MD Primary Care Provider Active Dr. Fish Torres MD Attending Provider Active Team Status: Active Member Role Status Dates Dr. Carmen Mcleod MD Primary Care Provider Active Jonathan Bond VEGETABLE BUNCHER, VEGETABLE BUNCHER-C Attending Provider Active Team Status: Inactive Member Role Status Dates Dr. Carmen Mcleod MD Primary Care Provider Active Jonathan Bond VEGETABLE BUNCHER, VEGETABLE BUNCHER-C Attending Provider, Referring P rovider Active Team Status: Inactive Member Role Status Dates Dr. Carmen Mcleod MD Primary Care Provider Active Dr. Fish Torres MD Attending Provider, Referring Pro vider Active Team Status: Inactive Member Role Status Dates Dr. Carmen Mcleod MD Primary Care Provider Active Dr. Ela Knowles DO Emergency Provider Active Team Status: Active Member Role Status Dates Dr. Carmen Mcleod MD Primary Care Provider Active Team Status: Inactive Member Role Status Dates Dr. Carmen Mcleod MD Primary Care Provider Active Start: September 02, 2024 End: September 02, 2024 Dr. Carmen Mcleod MD Referring Provider Active Start: September 02, 2024 End: September 02, 2024 Abraham VALLE, [place] Attending Provider Active Start: September 02, 2024 End: September 02, 2024 Team Status: Inactive Member Role Status Dates Dr. Carmen Mcleod MD Primary Care Provider Active Start: November 06, 2024 End: November 06, 2024 Dr. Fish Torres MD Attending Provider Active S tart: November 06, 2024 End: November 06, 2024 Team Status: Inactive Member Role Status Dates Dr. Carmen Mcleod MD Primary Care Provider Active Start: December 17, 2024 End: December 17, 2024 Dr. Cristino Ac MD Emergency Provider Active Sta rt: December 17, 2024 End: December 17, 2024 FOR RECORDS PERTAINING TO PATIENTS WHO ARE [...] BE BASED ON THE PRIMARY CLINICAL RECORDS. [facility] provides no warranty or guarantee of the accuracy or completeness of information in this document.
--- NOTE | 2025-01-24 12:55 | STRESSREP ---
Stress Test Report Pharmacologic myocardial perfusion stress test. 74-year-old man with a history of coronary bypass surgery status post implantable defibrillator Resting EKG demonstrates sinus rhythm with premature ventricular complexes with a rate of 71 bpm. Resting blood pressure is 138/82 mmHg. 0.4 mg of regadenoson was infused per usual protocol followed by rapid intravenous saline flush injection. Continuous EKG monitoring was performed. The maximum heart rate was 83 bpm which was 57% of max impacted heart rate the maximum workload was 1 metabolic equivalent. At rest there were no ST or T wave changes noted to suggest ischemia and at peak infusion nonspecific ST changes were noted which did not meet the criteria for ischemia. No clinical angina is noted. The final blood pressure was 120/82 mmHg. Myocardial perfusion protocol. 14.6 mCi of technetium 99m sestamibi was injected at rest. 0.4 mg of regadenoson was infused per usual protocol. At peak infusion 44.8 mCi of technetium 99m sestamibi was injected stress images were obtained stress and rest images were reconstructed and compared in the short axis vertical long and horizontal long axis. Gated images were also obtained. Perfusion SPECT analysis: Review of the stress images demonstrate normal uptake of tracer noted in all areas of the myocardium. There is evidence of reduced perfusion involving the mid inferior wall extending to the apex. This is present on the stress and resting images to a similar extent. No areas of reversibility are noted to suggest ischemia. Gated SPECT analysis: The gated ejection fraction is 34%. Conclusion: Pharmacologic myocardial perfusion stress test with evidence of mid inferior and apical inferior infarct. Ischemic cardiomyopathy No ischemia noted.
== END | disposition home or self-care (01) ==
LOC: CVS 06:07
PROVIDERS: PCP Family Medicine; Referring Provider Nurse Practitioner Family; Visit Provider Nurse Practitioner Family
DX: I25.119 Atherosclerotic heart disease of native coronary artery with unspecified angina pectoris (principal); R07.9 Chest pain, unspecified; Z95.5 Presence of coronary angioplasty implant and graft
CPT/HCPCS: 78452; 93017; A9500; A4216; J2785

== ENCOUNTER → 2025-04-08 | Outpatient (CLI) | payer MEDICARE, OTHER, SELFPAY ==
[2019-08-07 13:34] VITALS: BMI 27.5
--- NOTE | 2025-04-08 13:35 | ECHOCS_ITS ---
Reason For Study Reason For Study: CAD/ASHD Procedure This was a 2D Doppler, Color Flow transthoracic echocardiogram. The study was technically difficult. Exam performed in department. Left Ventricle Normal LV size. The left ventricular ejection fraction is 45 %. No regional wall motion abnormalities noted. Right Ventricle Normal RV size. ICD or pacer leads identified within the right ventricle. Normal systolic function. Atria The left atrium is moderately enlarged. The right atrium is mildly enlarged. Mitral Valve There is moderate mitral annular calcification. Tricuspid Valve Normal tricuspid valve. Mild (1+) tricuspid valve insufficiency. Pulmonary artery systolic pressure is 28 mmHg. Aortic Valve Trisinus/trileaflet aortic valve. Mild focal aortic valve calcification. Pulmonic Valve Normal pulmonic valve. Great Vessels Normal aortic root. The pulmonary artery is normal size. Inferior vena cava collapse with respiration. Pericardium/Pleural No pericardial effusion. Medication 22 gauge I.V. with prn adaptor inserted into right arm. Diluted definity 1.5ml given slow IV push to enhance endocardial definition. MMode/2D Measurements & Calculations LVIDd: 5.7 cm IVSd: 0.96 cm Ao root diam: 3.5 cm LVIDs: 4.7 cm LVPWd: 1.1 cm RVDd: 3.6 cm FS: 16.6 % LAV(MOD-bp): 108.9 ml LVAd ap4: 34.3 cm2 SV(MOD-sp4): 58.9 ml LAV(MOD-bp) Indexed: 46.8 ml/m2 LVLd ap4: 8.1 cm SI(MOD-sp4): 25.3 ml/m2 LAV(MOD-sp2): 103.1 ml EDV(MOD-sp4): 119.1 ml LAV(MOD-sp4): 92.7 ml EDV(sp4-el): 123.0 ml LVAs ap4: 23.1 cm2 LVLs ap4: 7.2 cm ESV(MOD-sp4): 60.2 ml ESV(sp4-el): 63.0 ml EF(MOD-sp4): 49.5 % EF(sp4-el): 48.8 % SV(sp4-el): 60.0 ml LA A4 area: 28.0 cm2 LA dimension(2D): 3.8 cm RA A4 area: 22.3 cm2 TAPSE: 1.8 cm Time Measurements MV dec time: 0.16 sec Doppler Measurements & Calculations MV E max caden: 97.2 cm/sec Lat Peak E' Caden: 9.6 cm/sec Med Peak E' Caden: 7.4 cm/sec MV A max caden: 76.0 cm/sec E/E' lat: 10.2 E/E' med: 13.1 MV E/A: 1.3 Ao V2 max: 154.3 cm/sec LV V1 max: 91.8 cm/sec PA V2 max: 63.8 cm/sec Ao max P.5 mmHg LV V1 max P.4 mmHg Ao V2 mean: 115.0 cm/sec LV V1 mean P.1 mmHg Ao mean P.9 mmHg LV V1 mean: 67.7 cm/sec Ao V2 VTI: 37.1 cm LV V1 VTI: 22.6 cm AV (velocity ratio): 0.61 TR max caden: 241.6 cm/sec TR max P.0 mmHg ECHO/Echo Complete W/ Contrast Interpretation Summary The left ventricular ejection fraction is 45 %. Normal LV size. The left atrium is moderately enlarged. Pulmonary artery systolic pressure is 28 mmHg. Contrast injection was performed. Ordering Physician: Fish Torres Referring Physician: Fish Torres Performed By: Pam Montoya RDCS
== END | disposition home or self-care (01) ==
LOC: CVS 13:34
PROVIDERS: Referring Provider Internal Medicine Cardiovascular Disease; Visit Provider Internal Medicine Cardiovascular Disease
DX: I25.2 Old myocardial infarction (principal)
CPT/HCPCS: 93306; Q9957; A4216; C8929